=== PATIENT | female | born 1955 | race African-American/Black ===

== ENCOUNTER 2016-10-31 10:26 | Inpatient (IN) | payer OTHER ==
[2016-10-31] VITALS (12 sets, daily range): BP systolic 74–123; BP diastolic 53–63
[~2016-10-31] VITALS: Ht 157.5 cm; Wt 122.6 kg
--- NOTE | 2016-10-31 10:32 | PHYS DOC ---
Adult General Chief Complaint Chief Complaint: DYSPNEA/RESPIRATOY DISTRESS HPI HPI Patient is a 61 year old -Mongolian Mong[place]ian female who presents with rest or distress. According EMS and they called her O2 sats were in the 30% range agreeable plan BiPAP and got her up to 90% but she still breathing 40 times a minute. Upon arrival to the ER her brain was done at 20 times a minute on BiPAP. She states she's been having some substernal chest pain for the last 2 days. She denies any fevers or chills. She states this is happen before but nobody knows why. Review of Systems Review of Systems Constitutional: Denies fever or chills [] Eyes: Denies change in visual acuity, redness, or eye pain [] HENT: Denies nasal congestion or sore throat [] Respiratory: Denies cough or shortness of breath [] Cardiovascular: No additional information not addressed in HPI [] GI: Denies abdominal pain, nausea, vomiting, bloody stools or diarrhea [] : Denies dysuria or hematuria [] Musculoskeletal: Denies back pain or joint pain [] Integument: Denies rash or skin lesions [] Neurologic: Denies headache, focal weakness or sensory changes [] Endocrine: Denies polyuria or polydipsia [] Current Medications Current Medications Current Medications Medications (Trade) Dose Ordered Sig/Cornel Start Time Stop Time Status Last Admin Dose Admin Albuterol/ Ipratropium (Duoneb) 3 ml 1X ONCE 10/31/16 11:00 10/31/16 11:01 DC 10/31/16 11:00 3 ML Furosemide (Lasix) 40 mg 1X ONCE 10/31/16 11:15 10/31/16 11:16 DC 10/31/16 11:17 40 MG Levofloxacin/ Dextrose 150 ml @ 100 mls/hr ONCE ONCE 10/31/16 11:30 10/31/16 12:59 DC 10/31/16 12:45 100 MLS/HR Levofloxacin/ Dextrose (Levaquin Per Pharmacy) 1 each PRN DAILY PRN 10/31/16 11:30 10/31/16 12:57 DC Methylprednisolone Sodium Succinate (SOLU-Medrol 125MG VIAL) 125 mg 1X ONCE 10/31/16 11:00 10/31/16 11:01 DC 10/31/16 11:18 125 MG Piperacillin Sod/ Tazobactam Sod (Zosyn Per Pharmacy) 1 each PRN DAILY PRN 10/31/16 11:30 Piperacillin Sod/ Tazobactam Sod 3.375 gm/Sodium Chloride 50 ml @ 100 mls/hr ONCE ONCE 10/31/16 11:45 10/31/16 12:14 DC 10/31/16 11:38 100 MLS/HR Vancomycin HCl (Vanco Per Pharmacy) 1 each PRN DAILY PRN 10/31/16 11:30 Vancomycin HCl 2 gm/Sodium Chloride 500 ml @ 250 mls/hr 1X ONCE 10/31/16 11:30 10/31/16 13:29 DC 10/31/16 14:30 250 MLS/HR Allergies Allergies Allergies Coded Allergies Type Severity Reaction Last Updated Verified haloperidol Allergy Unknown 10/31/16 Yes tetanus immune globulin Allergy Unknown 10/31/16 Yes Physical Exam Physical Exam Constitutional: Well developed, well nourished, morbidly obese in mild acute distress, non-toxic appearance. [] HENT: Normocephalic, atraumatic, bilateral external ears normal, oropharynx moist, no oral exudates, nose normal. [] Eyes: PERRLA, EOMI, conjunctiva normal, no discharge. [] Neck: Normal range of motion, no tenderness, supple, no stridor. [] Cardiovascular:Heart rate regular rhythm, no murmur [] Lungs & Thorax: Bilateral breath sounds decreased bilaterally, no wheezing appreciated Abdomen: Bowel sounds normal, soft, no tenderness, no masses, no pulsatile masses. [] Skin: Warm, dry, no erythema, no rash. [] Back: No tenderness, no CVA tenderness. [] Extremities: No tenderness, no cyanosis, no clubbing, ROM intact, no edema. [] Neurologic: Alert and oriented X 3, normal motor function, normal sensory function, no focal deficits noted. [] Psychologic: Affect normal, judgement normal, mood normal. [] Current Patient Data Vital Signs Vital Signs Date Time Temp Pulse Resp B/P (MAP) Pulse Ox O2 Delivery O2 Flow Rate FiO2 10/31/16 12:00 103 20 102/56 (71) 94 10/31/16 11:15 BiPAP/CPAP 10/31/16 10:32 102.7 102.7 Lab Values Laboratory Tests Test 10/31/16 10:31 10/31/16 11:00 10/31/16 11:08 White Blood Count 14.8 x10^3/uL (4.0-11.0) H Red Blood Count 4.29 x10^6/uL (3.50-5.40) Hemoglobin 12.3 g/dL (12.0-15.5) Hematocrit 38.1 % (36.0-47.0) Mean Corpuscular Volume 89 fL (79-100) Mean Corpuscular Hemoglobin 29 pg (25-35) Mean Corpuscular Hemoglobin Concent 32 g/dL (31-37) Red Cell Distribution Width 15.4 % (11.5-14.5) H Platelet Count 240 x10^3/uL (140-400) Neutrophils (%) (Auto) 76 % (31-73) H Lymphocytes (%) (Auto) 13 % (24-48) L Monocytes (%) (Auto) 10 % (0-9) H Eosinophils (%) (Auto) 0 % (0-3) Basophils (%) (Auto) 1 % (0-3) Neutrophils # (Auto) 11.3 x10^3uL (1.8-7.7) H Lymphocytes # (Auto) 2.0 x10^3/uL (1.0-4.8) Monocytes # (Auto) 1.4 x10^3/uL (0.0-1.1) H Eosinophils # (Auto) 0.0 x10^3/uL (0.0-0.7) Basophils # (Auto) 0.1 x10^3/uL (0.0-0.2) Prothrombin Time 13.1 SEC (11.7-14.0) Prothrombin Time INR 1.1 (0.8-1.1) Lactic Acid Level 1.2 mmol/L (0.4-2.0) O2 Saturation 88 % (92-99) L Arterial Blood pH 7.31 (7.35-7.45) L Arterial Blood pCO2 at Patient Temp 59 mmHg (35-46) H Arterial Blood pO2 at Patient Temp 64 mmHg (65-108) L Arterial Blood HCO3 29 mmol/L (21-28) H Arterial Blood Base Excess 2 mmol/L (-3-3) FiO2 50 Sodium Level 137 mmol/L (136-145) Potassium Level 3.6 mmol/L (3.5-5.1) Chloride Level 98 mmol/L (98-107) Carbon Dioxide Level 30 mmol/L (21-32) Anion Gap 9 (6-14) Blood Urea Nitrogen 33 mg/dL (7-20) H Creatinine 2.1 mg/dL (0.6-1.0) H Estimated GFR (Cockcroft-Gault) 28.8 Glucose Level 125 mg/dL (70-99) H Calcium Level 8.5 mg/dL (8.5-10.1) Magnesium Level 2.2 mg/dL (1.8-2.4) Total Bilirubin 0.4 mg/dL (0.2-1.0) Direct Bilirubin 0.2 mg/dL (0.0-0.2) Aspartate Amino Transferase (AST) 65 U/L (15-37) H Alanine Aminotransferase (ALT) 32 U/L (14-59) Alkaline Phosphatase 137 U/L (46-116) H Creatine Kinase 2474 U/L (26-192) H Creatine Kinase MB (Mass) 10.2 ng/mL (0.0-3.6) H Creatine Kinase MB Relative Index 0.4 % (0-4) Troponin I Quantitative 0.035 ng/mL (0.000-0.055) ER-Upr-D-Type Natriuretic Peptide 201 pg/mL (0-124) H Total Protein 8.1 g/dL (6.4-8.2) Albumin 3.6 g/dL (3.4-5.0) Lipase 36 U/L (73-393) L Thyroid Stimulating Hormone (TSH) 1.216 uIU/mL (0.358-3.74) Laboratory Tests 10/31/16 10:31 Laboratory Tests 10/31/16 11:08 EKG EKG EKG shows sinus tachycardia [address] elevations or T-wave inversions, normal axis, QTC 434 ms, as interpreted by me. Radiology/Procedures Radiology/Procedures [facility] [address] [place], [place] [id number] IMAGING REPORT Signed PATIENT: KY ROJAS ACCOUNT: [id number] : 1955 LOCATION: ER AGE: 61 SEX: F EXAM STATUS: PRE ER ORD. PHYSICIAN: CARLOS KHAN MD REASON: soa PROCEDURE: PORTABLE CHEST 1V Indication shortness of air. A single view of the chest was obtained. No prior imaging of the chest is available. There is cardiomegaly. There are pulmonary infiltrates compatible with congestive heart failure. There are probable small pleural effusions. There is volume loss at the left lung base which may reflect atelectasis. Pneumonia is not excluded. IMPRESSION cardiomegaly. Pulmonary infiltrates compatible with congestive heart failure. Probable bilateral pleural effusions. Volume loss in the left lung base may reflect atelectasis or pneumonia DICTATED and SIGNED BY: JUAN JOHNSON MD DATE: 10/31/16 1051 CC: CARLOS KHAN MD ~ Impressions: Respiratory failure Healthcare acquired pneumonia Course & Med Decision Making Course & Med Decision Making Pertinent Labs and Imaging studies reviewed. (See chart for details) Presents with respiratory failure and O2 sats 85 range and her tachycardia. I performed a CT angiogram since I cannot explain why she is hypoxic and tachycardic. This did not show any signs of infection or other abnormalities. She was started on Solu-Medrol, DuoNeb nebs and the myosin. She's being admitted to the hospitalist with pulmonary consultation. Interim orders have been written. Patient's in stable condition on oxygen at this time. Dragon Disclaimer Dragon Disclaimer This electronic medical record was generated, in whole or in part, using a voice recognition dictation system. Departure Departure Impression: Primary Impression: Respiratory failure Disposition: ADMITTED INPATIENT Admitting Physician: Katt Guerra Condition: STABLE Problem Qualifiers Primary Impression: Respiratory failure Chronicity: acute Respiratory failure complication: hypoxia Qualified Codes : J96.01 - Acute respiratory failure with hypoxia CARLOS KHAN MD Oct 31, 2016 10:32
[2016-10-31 10:44] LABS: BASO # 0.1 x10^3/uL (0.0-0.2); BASO % 1 % (0-3); EOS % 0 % (0-3); HEMATOCRIT 38.1 % (36.0-47.0); HEMOGLOBIN 12.3 g/dL (12.0-15.5); LYMPH % 13 % (24-48); MEAN CORPUSCULAR HEMOGLOBIN 29 pg (25-35); MEAN CORPUSCULAR HGB CONC 32 g/dL (31-37); MEAN CORPUSCULAR VOLUME 89 fL (79-100); MONO % 10 % (0-9); NEUT % 76 % (31-73); PLATELET COUNT 240 x10^3/uL (140-400); RED BLOOD COUNT 4.29 x10^6/uL (3.50-5.40); RED CELL DISTRIBUTION WIDTH 15.4 % (11.5-14.5); WHITE BLOOD COUNT 14.8 x10^3/uL (4.0-11.0)
--- NOTE | 2016-10-31 10:55 | RAD ---
Indication shortness of air. A single view of the chest was obtained. No prior imaging of the chest is available. There is cardiomegaly. There are pulmonary infiltrates compatible with congestive heart failure. There are probable small pleural effusions. There is volume loss at the left lung base which may reflect atelectasis. Pneumonia is not excluded. IMPRESSION cardiomegaly. Pulmonary infiltrates compatible with congestive heart failure. Probable bilateral pleural effusions. Volume loss in the left lung base may reflect atelectasis or pneumonia
[2016-10-31 10:57] LABS: INR 1.1 (0.8-1.1); PROTHROMBIN TIME PATIENT 13.1 SEC (11.7-14.0)
[2016-10-31] MEDS ORDERED: methylPREDNISolone SOD SUCC PF 125 MG/2 ML VIAL. IV ONE (11:00)
[2016-10-31] MEDS ORDERED: IPRATRPIUM/ALBUTEROL 0.5/2.5MG 3 ML NEBU. NEB ONE (11:00)
[2016-10-31 11:13] LABS: HCO3 ABG 29 mmol/L (21-28); PCO2 ABG 59 mmHg (35-46); PH ABG 7.31 (7.35-7.45); PO2 ABG 64 mmHg (65-108); SAT O2 ABG 88 % (92-99)
[2016-10-31] MEDS ORDERED: FUROSEMIDE 40 MG/4 ML VIAL. IVP ONE (11:15)
[2016-10-31 11:26] LABS: CALCIUM 8.5 mg/dL (8.5-10.1); CREATININE 2.1 mg/dL (0.6-1.0); GFR 28.8; POTASSIUM 3.6 mmol/L (3.5-5.1)
[2016-10-31] MEDS ORDERED: PIP/TAZO PER PHARMACY MC PRN (11:30)
[2016-10-31] MEDS ORDERED: levOFLOXacin PER PHARMACY. MC PRN (11:30)
[2016-10-31] MEDS ORDERED: VANCOMYCIN 2 GM in IV NORMAL SALINE 500ML BAG 500 ML IV ONE (11:30)
[2016-10-31 11:32] LABS: ALBUMIN 3.6 g/dL (3.4-5.0); DIRECT BILIRUBIN 0.2 mg/dL (0.0-0.2); MAGNESIUM 2.2 mg/dL (1.8-2.4); TOTAL BILIRUBIN 0.4 mg/dL (0.2-1.0); TOTAL PROTEIN 8.1 g/dL (6.4-8.2)
[2016-10-31] MEDS ORDERED: PIPERACILLIN/TAZOBACTAM 3.375 GM in IV NORMAL SALINE 50ML 50 ML IV ONE (11:45)
[2016-10-31 11:55] LABS: CKMB MASS 10.2 ng/mL (0.0-3.6)
[2016-10-31 12:09] LABS: FIO2 ABG 50
--- NOTE | 2016-10-31 12:32 | EKG ---
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
[2016-10-31 12:59] LABS: HCO3 ABG 27 mmol/L (21-28); PCO2 ABG 49 mmHg (35-46); PH ABG 7.36 (7.35-7.45); PO2 ABG 67 mmHg (65-108); SAT O2 ABG 91 % (92-99)
[2016-10-31 13:41] LABS: BILIRUBIN,URINE SMALL (NEG); GLUCOSE,URINE NEGATIVE (NEG); NITRITE,URINE NEGATIVE (NEG); PROTEIN,URINE 30 mg/dL (NEG-TRACE)
[2016-10-31 13:46] LABS: BARBITURATES NEG (NEG); BENZODIAZEPINES NEG (NEG); CANNABINOIDS NEG (NEG); COCAINE NEG (NEG); METHADONE NEG (NEG); OPIATES NEG (NEG); PHENCYCLIDINE NEG (NEG)
[2016-10-31 13:59] LABS: BACTERIA,URINE MANY /HPF (0-FEW); RBC,URINE 0 /HPF (0-2)
[2016-10-31] MEDS ORDERED: IV NORMAL SALINE 1000ML BAG 1,000 ML IV ONE (14:00)
[2016-10-31] MEDS ORDERED: MELO15TA23 PO (14:54)
[2016-10-31] MEDS ORDERED: FLUO40CA2 PO (14:54)
[2016-10-31] MEDS ORDERED: CLON0.1T PO (14:54)
[2016-10-31] MEDS ORDERED: CETI10TA16 PO (14:54)
[2016-10-31] MEDS ORDERED: DOCU100C28 PO (14:54)
[2016-10-31] MEDS ORDERED: LOSA50TA6 PO (14:54)
[2016-10-31] MEDS ORDERED: LORA1TAB PO (14:54)
[2016-10-31] MEDS ORDERED: MONT10TA9 PO (14:54)
[2016-10-31] MEDS ORDERED: FAMO20TA5 PO (14:54)
[2016-10-31] MEDS ORDERED: FURO-68 PO (14:54)
[2016-10-31] MEDS ORDERED: HYDR25TA9 PO (14:54)
[2016-10-31] MEDS ORDERED: IPRA3AMP NEB (14:54)
[2016-10-31] MEDS ORDERED: FOLI1TAB16 PO (14:54)
[2016-10-31] MEDS ORDERED: OLAN20TA7 PO (14:56)
[2016-10-31] MEDS ORDERED: TRAZ100T12 PO (15:00)
[2016-10-31] MEDS ORDERED: POLY255P PO (15:00)
[2016-10-31] MEDS ORDERED: ONDANSETRON PF 4 MG/2 ML VIAL. IV PRN (15:15)
[2016-10-31] MEDS ORDERED: ALBUTEROL SULFATE 2.5 MG/3 ML NEBU. NEB PRN (15:15)
[2016-10-31] MEDS: IPRATRPIUM/ALBUTEROL 0.5/2.5MG 3 ML NEBU. NEB SCH (15:15)
[2016-10-31] MEDS ORDERED: traMADol 50 MG TABLET PO PRN (15:15)
--- NOTE | 2016-10-31 15:23 | PDOC1 ---
History and Physical Date of Admission Date of Admission 10/31/16 Identification/Chief Complaint Chief Complaint sob Problems: Source Source: Chart review History of Present Illness History of Present Illness Patient is a 61 year old -Ch[place] female who presents with rest or distress. pt is lethargic now, not arousable or answer my question. as per ERP and ICU NURSE, pt was sent from a mental health facility, with h/o chf, schizophrenia, copd. EMS called her O2 sats were in the 30% range agreeable plan BiPAP and got her up to 90% but she still breathing 40 times a minute. She states she's been having some substernal chest pain for the last 2 days. She denies any fevers or chills. She states this is happen before but nobody knows why. IN ER, T 102, need bipap, able to answer some questions but now lethargic. got lasix x1 in ER. Past Medical History Cardiovascular: CHF, HTN Pulmonary: COPD Past Surgical History Past Surgical History: No pertinent history Family History Family History: Hypertension Social History Smoke: <1 pack per day ALCOHOL: none Drugs: None Current Medications Current Medications Current Medications Medications (Trade) Dose Ordered Sig/Cornel Start Time Stop Time Status Last Admin Dose Admin Albuterol/ Ipratropium (Duoneb) 3 ml 1X ONCE 10/31/16 11:00 10/31/16 11:01 DC 10/31/16 11:00 3 ML Furosemide (Lasix) 40 mg 1X ONCE 10/31/16 11:15 10/31/16 11:16 DC 10/31/16 11:17 40 MG Levofloxacin/ Dextrose 150 ml @ 100 mls/hr Q48H 11/02/16 10:00 Levofloxacin/ Dextrose (Levaquin Per Pharmacy) 1 each PRN DAILY PRN 10/31/16 11:30 10/31/16 12:57 DC Methylprednisolone Sodium Succinate (SOLU-Medrol 125MG VIAL) 125 mg 1X ONCE 10/31/16 11:00 10/31/16 11:01 DC 10/31/16 11:18 125 MG Piperacillin Sod/ Tazobactam Sod (Zosyn Per Pharmacy) 1 each PRN DAILY PRN 10/31/16 11:30 Piperacillin Sod/ Tazobactam Sod 3.375 gm/Sodium Chloride 50 ml @ 100 mls/hr Q6HRS 10/31/16 18:00 Vancomycin HCl (Vanco Per Pharmacy) 1 each PRN DAILY PRN 10/31/16 11:30 Vancomycin HCl 2 gm/Sodium Chloride 500 ml @ 250 mls/hr 1X ONCE 10/31/16 11:30 10/31/16 13:29 DC Allergies Allergies Allergies Coded Allergies Type Severity Reaction Last Updated Verified haloperidol Allergy Unknown 10/31/16 Yes tetanus immune globulin Allergy Unknown 10/31/16 Yes ROS Review of System CONSTITUTIONAL: No fever or chills EYES: No recent changes SKIN: No rash or itching CARDIOVASCULAR: No chest pain, syncope, palpitations, or edema RESPIRATORY: No SOB or cough GASTROINTESTINAL: No nausea, vomiting or abdominal pain NEUROLOGICAL: No headaches or weakness ENDOCRINE: No cold or heat intolerance GENITOURINARY: No urgency or frequency of urination MUSCULOSKELETAL: No back pain or joint pain LYMPHATICS: No enlarged lymph nodes PSYCHIATRIC: No anxiety or depression Physical Exam Physical Exam GEN.: on bipap, lethargic, not arousable or answer my questions, not follow my commands. HEENT: Head is normocephalic, atraumatic NECK: Supple. LUNGS: bl coarse bs. HEART: RRR, S1, S2 present. Peripheral pulses intact ABDOMEN: Soft, nontender. Positive bowel sounds. EXTREMITIES: Without any cyanosis. bl leg 1= edema NEUROLOGIC: Normal speech, normal tone PSYCHIATRIC: Normal affect, normal mood. SKIN: No ulcerations Vitals Vitals Vital Signs Date Time Temp Pulse Resp B/P (MAP) Pulse Ox O2 Delivery O2 Flow Rate FiO2 10/31/16 13:15 88 10/31/16 12:30 102 20 107/57 (74) BiPAP/CPAP 10/31/16 10:32 102.7 102.7 Labs Labs Laboratory Tests Test 10/31/16 10:31 10/31/16 11:00 10/31/16 11:08 10/31/16 12:55 White Blood Count 14.8 x10^3/uL (4.0-11.0) Red Blood Count 4.29 x10^6/uL (3.50-5.40) Hemoglobin 12.3 g/dL (12.0-15.5) Hematocrit 38.1 % (36.0-47.0) Mean Corpuscular Volume 89 fL (79-100) Mean Corpuscular Hemoglobin 29 pg (25-35) Mean Corpuscular Hemoglobin Concent 32 g/dL (31-37) Red Cell Distribution Width 15.4 % (11.5-14.5) Platelet Count 240 x10^3/uL (140-400) Neutrophils (%) (Auto) 76 % (31-73) Lymphocytes (%) (Auto) 13 % (24-48) Monocytes (%) (Auto) 10 % (0-9) Eosinophils (%) (Auto) 0 % (0-3) Basophils (%) (Auto) 1 % (0-3) Neutrophils # (Auto) 11.3 x10^3uL (1.8-7.7) Lymphocytes # (Auto) 2.0 x10^3/uL (1.0-4.8) Monocytes # (Auto) 1.4 x10^3/uL (0.0-1.1) Eosinophils # (Auto) 0.0 x10^3/uL (0.0-0.7) Basophils # (Auto) 0.1 x10^3/uL (0.0-0.2) Prothrombin Time 13.1 SEC (11.7-14.0) Prothromb Time International Ratio 1.1 (0.8-1.1) Lactic Acid Level 1.2 mmol/L (0.4-2.0) O2 Saturation 88 % (92-99) 91 % (92-99) Arterial Blood pH 7.31 (7.35-7.45) 7.36 (7.35-7.45) Arterial Blood pCO2 at Patient Temp 59 mmHg (35-46) 49 mmHg (35-46) Arterial Blood pO2 at Patient Temp 64 mmHg (65-108) 67 mmHg (65-108) Arterial Blood HCO3 29 mmol/L (21-28) 27 mmol/L (21-28) Arterial Blood Base Excess 2 mmol/L (-3-3) 1 mmol/L (-3-3) FiO2 50 50.0 Sodium Level 137 mmol/L (136-145) Potassium Level 3.6 mmol/L (3.5-5.1) Chloride Level 98 mmol/L (98-107) Carbon Dioxide Level 30 mmol/L (21-32) Anion Gap 9 (6-14) Blood Urea Nitrogen 33 mg/dL (7-20) Creatinine 2.1 mg/dL (0.6-1.0) Estimated GFR (Cockcroft-Gault) 28.8 Glucose Level 125 mg/dL (70-99) Calcium Level 8.5 mg/dL (8.5-10.1) Magnesium Level 2.2 mg/dL (1.8-2.4) Total Bilirubin 0.4 mg/dL (0.2-1.0) Direct Bilirubin 0.2 mg/dL (0.0-0.2) Aspartate Amino Transf (AST/SGOT) 65 U/L (15-37) Alanine Aminotransferase (ALT/SGPT) 32 U/L (14-59) Alkaline Phosphatase 137 U/L (46-116) Creatine Kinase 2474 U/L (26-192) Creatine Kinase MB (Mass) 10.2 ng/mL (0.0-3.6) Creatine Kinase MB Relative Index 0.4 % (0-4) Troponin I Quantitative 0.035 ng/mL (0.000-0.055) WF-Nks-M-Type Natriuretic Peptide 201 pg/mL (0-124) Total Protein 8.1 g/dL (6.4-8.2) Albumin 3.6 g/dL (3.4-5.0) Lipase 36 U/L (73-393) Thyroid Stimulating Hormone (TSH) 1.216 uIU/mL (0.358-3.74) Test 10/31/16 13:30 Urine Collection Type U cath Urine Color Daisy Urine Clarity Cloudy Urine pH 5.0 Urine Specific [place] 1.015 Urine Protein 30 mg/dL (NEG-TRACE) Urine Glucose (UA) Negative mg/dL (NEG) Urine Ketones (Stick) Negative mg/dL (NEG) Urine Blood Negative (NEG) Urine Nitrite Negative (NEG) Urine Bilirubin Small (NEG) Urine Urobilinogen Dipstick 1.0 mg/dL (0.2 mg/dL) Urine Leukocyte Esterase Trace (NEG) Urine RBC 0 /HPF (0-2) Urine WBC 5-10 /HPF (0-4) Urine Bacteria Many /HPF (0-FEW) Urine Hyaline Casts Many /HPF Urine Mucus Mod /LPF Urine Opiates Screen Neg (NEG) Urine Methadone Screen Neg (NEG) Urine Barbiturates Neg (NEG) Urine Phencyclidine Screen Neg (NEG) Urine Amphetamine/Methamphetamine Neg (NEG) Urine Benzodiazepines Screen Neg (NEG) Urine Cocaine Screen Neg (NEG) Urine Cannabinoids Screen Neg (NEG) Urine Ethyl Alcohol Neg (NEG) Laboratory Tests Test 10/31/16 10:31 10/31/16 11:00 10/31/16 11:08 10/31/16 12:55 White Blood Count 14.8 x10^3/uL (4.0-11.0) Red Blood Count 4.29 x10^6/uL (3.50-5.40) Hemoglobin 12.3 g/dL (12.0-15.5) Hematocrit 38.1 % (36.0-47.0) Mean Corpuscular Volume 89 fL (79-100) Mean Corpuscular Hemoglobin 29 pg (25-35) Mean Corpuscular Hemoglobin Concent 32 g/dL (31-37) Red Cell Distribution Width 15.4 % (11.5-14.5) Platelet Count 240 x10^3/uL (140-400) Neutrophils (%) (Auto) 76 % (31-73) Lymphocytes (%) (Auto) 13 % (24-48) Monocytes (%) (Auto) 10 % (0-9) Eosinophils (%) (Auto) 0 % (0-3) Basophils (%) (Auto) 1 % (0-3) Neutrophils # (Auto) 11.3 x10^3uL (1.8-7.7) Lymphocytes # (Auto) 2.0 x10^3/uL (1.0-4.8) Monocytes # (Auto) 1.4 x10^3/uL (0.0-1.1) Eosinophils # (Auto) 0.0 x10^3/uL (0.0-0.7) Basophils # (Auto) 0.1 x10^3/uL (0.0-0.2) Prothrombin Time 13.1 SEC (11.7-14.0) Prothromb Time International Ratio 1.1 (0.8-1.1) Lactic Acid Level 1.2 mmol/L (0.4-2.0) O2 Saturation 88 % (92-99) 91 % (92-99) Arterial Blood pH 7.31 (7.35-7.45) 7.36 (7.35-7.45) Arterial Blood pCO2 at Patient Temp 59 mmHg (35-46) 49 mmHg (35-46) Arterial Blood pO2 at Patient Temp 64 mmHg (65-108) 67 mmHg (65-108) Arterial Blood HCO3 29 mmol/L (21-28) 27 mmol/L (21-28) Arterial Blood Base Excess 2 mmol/L (-3-3) 1 mmol/L (-3-3) FiO2 50 50.0 Sodium Level 137 mmol/L (136-145) Potassium Level 3.6 mmol/L (3.5-5.1) Chloride Level 98 mmol/L (98-107) Carbon Dioxide Level 30 mmol/L (21-32) Anion Gap 9 (6-14) Blood Urea Nitrogen 33 mg/dL (7-20) Creatinine 2.1 mg/dL (0.6-1.0) Estimated GFR (Cockcroft-Gault) 28.8 Glucose Level 125 mg/dL (70-99) Calcium Level 8.5 mg/dL (8.5-10.1) Magnesium Level 2.2 mg/dL (1.8-2.4) Total Bilirubin 0.4 mg/dL (0.2-1.0) Direct Bilirubin 0.2 mg/dL (0.0-0.2) Aspartate Amino Transf (AST/SGOT) 65 U/L (15-37) Alanine Aminotransferase (ALT/SGPT) 32 U/L (14-59) Alkaline Phosphatase 137 U/L (46-116) Creatine Kinase 2474 U/L (26-192) Creatine Kinase MB (Mass) 10.2 ng/mL (0.0-3.6) Creatine Kinase MB Relative Index 0.4 % (0-4) Troponin I Quantitative 0.035 ng/mL (0.000-0.055) SL-Mad-M-Type Natriuretic Peptide 201 pg/mL (0-124) Total Protein 8.1 g/dL (6.4-8.2) Albumin 3.6 g/dL (3.4-5.0) Lipase 36 U/L (73-393) Thyroid Stimulating Hormone (TSH) 1.216 uIU/mL (0.358-3.74) Test 10/31/16 13:30 Urine Collection Type U cath Urine Color Daisy Urine Clarity Cloudy Urine pH 5.0 Urine Specific [place] 1.015 Urine Protein 30 mg/dL (NEG-TRACE) Urine Glucose (UA) Negative mg/dL (NEG) Urine Ketones (Stick) Negative mg/dL (NEG) Urine Blood Negative (NEG) Urine Nitrite Negative (NEG) Urine Bilirubin Small (NEG) Urine Urobilinogen Dipstick 1.0 mg/dL (0.2 mg/dL) Urine Leukocyte Esterase Trace (NEG) Urine RBC 0 /HPF (0-2) Urine WBC 5-10 /HPF (0-4) Urine Bacteria Many /HPF (0-FEW) Urine Hyaline Casts Many /HPF Urine Mucus Mod /LPF Urine Opiates Screen Neg (NEG) Urine Methadone Screen Neg (NEG) Urine Barbiturates Neg (NEG) Urine Phencyclidine Screen Neg (NEG) Urine Amphetamine/Methamphetamine Neg (NEG) Urine Benzodiazepines Screen Neg (NEG) Urine Cocaine Screen Neg (NEG) Urine Cannabinoids Screen Neg (NEG) Urine Ethyl Alcohol Neg (NEG) VTE Prophylaxis Ordered VTE Prophylaxis Devices: Yes VTE Pharmacological Prophylaxi: Yes Assessment/Plan Assessment/Plan acute hypoxic and hypercapnic resp failure with HAP CHF history, no details, could be systolic exacerbation copd morbid obesity ckd with jerrod, vasomotor from mental health facility, schizophrenia HTN tobaccoism rhabdomyelitis sepsis with HAP PLAN: CARD, pulm consult repeat ABG 500 CC bolus running given low side BP, hold po meds given got lasix 40mg iv x1 in ER, and low bp on vanco, zosyn ,levaquin from ER. check sputum cx,fu bcx bipap for now npo labs tmr echo duoneb dvt, gi ppx ICU care, monitor bp and urine output. SARA ANDERSON MD Oct 31, 2016 15:23
[2016-10-31 15:30] LABS: HCO3 ABG 25 mmol/L (21-28); PCO2 ABG 54 mmHg (35-46); PH ABG 7.27 (7.35-7.45); PO2 ABG 64 mmHg (65-108); SAT O2 ABG 88 % (92-99)
[2016-10-31 15:33] LABS: FIO2 ABG 70
--- NOTE | 2016-10-31 15:35 | PDOC2 ---
DARIEL ORDONEZ LIQUOR DEPARTMENT MANAGER 10/31/16 1535: CARDIAC CONSULT DATE OF CONSULT Date of Consult DATE: 10/31/16 TIME: 15:23 REASON FOR CONSULT Reason for Consult: CHF history REFERRING PHYSICIAN Referring Physician: Fred SOURCE Source: Chart review, Patient HISTORY OF PRESENT ILLNESS HISTORY OF PRESENT ILLNESS This is a 61 yo female admitted for complains of SOA. She came from a mental health facility and was noted with SOA. She was significantly hypoxic upon EMS and was placed on bipap and has improved. It was a little difficult to obtain significant information due to bipap use. She was able to give me few details of her hx. Reports that in the last 4 days she has been having chills, increasing productive white sputum. Her hydration has been poor. Denies any chest pain but she has been having left sided abdominal discomfort. No n/v or diarrhea. She also recently received zithromax done with last dose on 10/22/2016 She does not use any O2 or CPAP in the facility. Per review there was no notation of prior CAD, arrhythmias,VTE/anticoagulation. 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 PAST MEDICAL HISTORY Cardiovascular: CHF, HTN Pulmonary: Asthma GI: Constipation, GERD Psych: Depression, Schizophrenia Musculoskeletal: Osteoarthritis ENT: Allergic Rhinitis PAST SURGICAL HISTORY Past Surgical History: Other (Unknown) FAMILY HISTORY Family History: Family History Unknown SOCIAL HISTORY Social History tobaccoism CURRENT MEDICATIONS CURRENT MEDICATIONS Current Medications Medications (Trade) Dose Ordered Sig/Cornel Route PRN Reason Start Time Stop Time Status Last Admin Dose Admin Methylprednisolone Sodium Succinate (SOLU-Medrol 125MG VIAL) 125 mg 1X ONCE IV 10/31/16 11:00 10/31/16 11:01 DC 10/31/16 11:18 Albuterol/ Ipratropium (Duoneb) 3 ml 1X ONCE NEB 10/31/16 11:00 10/31/16 11:01 DC 10/31/16 11:00 Furosemide (Lasix) 40 mg 1X ONCE IVP 10/31/16 11:15 10/31/16 11:16 DC 10/31/16 11:17 Levofloxacin/ Dextrose 150 ml @ 100 mls/hr ONCE ONCE IV 10/31/16 11:30 10/31/16 12:59 DC 10/31/16 12:45 Piperacillin Sod/ Tazobactam Sod 3.375 gm/Sodium Chloride 50 ml @ 100 mls/hr ONCE ONCE IV 10/31/16 11:45 10/31/16 12:14 DC 10/31/16 11:38 ALLERGIES ALLERGIES: Coded Allergies: haloperidol (Verified Allergy, Unknown, 10/31/16) tetanus immune globulin (Verified Allergy, Unknown, 10/31/16) ROS Review of System limited with needed bipap use, see HPI PHYSICAL EXAM General: Alert, Oriented X3, Cooperative, moderate distress HEENT: Atraumatic, Mucous membr. moist/pink Lungs: Other (diffuse wheeze, basilar crackles) Heart: Regular rate (SR), Normal S1, Normal S2, Other (difficult to note due to adventitious sounds and bipap) Abdomen: Soft, No tenderness, Other (obese) Extremities: No cyanosis, Other (1+ bilateral LE pitting edema) Skin: No breakdown, No significant lesion Neuro: Sensation intact, Other (difficult to communicate due to bipap but responsive to questions. ) Psych/Mental Status: Mental status NL, Mood NL MUSCULOSKELETAL: Osteoarthritic changes both hands VITALS VITALS Vital Signs Date Time Temp Pulse Resp B/P (MAP) Pulse Ox O2 Delivery O2 Flow Rate FiO2 10/31/16 15:00 91 20 90/55 (67) 90 BiPAP/CPAP 10/31/16 14:00 100.4 100.4 LABS Lab: Laboratory Tests Test 10/31/16 10:31 10/31/16 11:00 10/31/16 11:08 10/31/16 12:55 White Blood Count 14.8 x10^3/uL (4.0-11.0) Red Blood Count 4.29 x10^6/uL (3.50-5.40) Hemoglobin 12.3 g/dL (12.0-15.5) Hematocrit 38.1 % (36.0-47.0) Mean Corpuscular Volume 89 fL (79-100) Mean Corpuscular Hemoglobin 29 pg (25-35) Mean Corpuscular Hemoglobin Concent 32 g/dL (31-37) Red Cell Distribution Width 15.4 % (11.5-14.5) Platelet Count 240 x10^3/uL (140-400) Neutrophils (%) (Auto) 76 % (31-73) Lymphocytes (%) (Auto) 13 % (24-48) Monocytes (%) (Auto) 10 % (0-9) Eosinophils (%) (Auto) 0 % (0-3) Basophils (%) (Auto) 1 % (0-3) Neutrophils # (Auto) 11.3 x10^3uL (1.8-7.7) Lymphocytes # (Auto) 2.0 x10^3/uL (1.0-4.8) Monocytes # (Auto) 1.4 x10^3/uL (0.0-1.1) Eosinophils # (Auto) 0.0 x10^3/uL (0.0-0.7) Basophils # (Auto) 0.1 x10^3/uL (0.0-0.2) Prothrombin Time 13.1 SEC (11.7-14.0) Prothromb Time International Ratio 1.1 (0.8-1.1) Lactic Acid Level 1.2 mmol/L (0.4-2.0) O2 Saturation 88 % (92-99) 91 % (92-99) Arterial Blood pH 7.31 (7.35-7.45) 7.36 (7.35-7.45) Arterial Blood pCO2 at Patient Temp 59 mmHg (35-46) 49 mmHg (35-46) Arterial Blood pO2 at Patient Temp 64 mmHg (65-108) 67 mmHg (65-108) Arterial Blood HCO3 29 mmol/L (21-28) 27 mmol/L (21-28) Arterial Blood Base Excess 2 mmol/L (-3-3) 1 mmol/L (-3-3) FiO2 50 50.0 Sodium Level 137 mmol/L (136-145) Potassium Level 3.6 mmol/L (3.5-5.1) Chloride Level 98 mmol/L (98-107) Carbon Dioxide Level 30 mmol/L (21-32) Anion Gap 9 (6-14) Blood Urea Nitrogen 33 mg/dL (7-20) Creatinine 2.1 mg/dL (0.6-1.0) Estimated GFR (Cockcroft-Gault) 28.8 Glucose Level 125 mg/dL (70-99) Calcium Level 8.5 mg/dL (8.5-10.1) Magnesium Level 2.2 mg/dL (1.8-2.4) Total Bilirubin 0.4 mg/dL (0.2-1.0) Direct Bilirubin 0.2 mg/dL (0.0-0.2) Aspartate Amino Transf (AST/SGOT) 65 U/L (15-37) Alanine Aminotransferase (ALT/SGPT) 32 U/L (14-59) Alkaline Phosphatase 137 U/L (46-116) Creatine Kinase 2474 U/L (26-192) Creatine Kinase MB (Mass) 10.2 ng/mL (0.0-3.6) Creatine Kinase MB Relative Index 0.4 % (0-4) Troponin I Quantitative 0.035 ng/mL (0.000-0.055) WI-Lvk-[id number]-Type Natriuretic Peptide 201 pg/mL (0-124) Total Protein 8.1 g/dL (6.4-8.2) Albumin 3.6 g/dL (3.4-5.0) Lipase 36 U/L (73-393) Thyroid Stimulating Hormone (TSH) 1.216 uIU/mL (0.358-3.74) Test 10/31/16 13:30 Urine Collection Type U cath Urine Color Daisy Urine Clarity Cloudy Urine pH 5.0 Urine Specific [place] 1.015 Urine Protein 30 mg/dL (NEG-TRACE) Urine Glucose (UA) Negative mg/dL (NEG) Urine Ketones (Stick) Negative mg/dL (NEG) Urine Blood Negative (NEG) Urine Nitrite Negative (NEG) Urine Bilirubin Small (NEG) Urine Urobilinogen Dipstick 1.0 mg/dL (0.2 mg/dL) Urine Leukocyte Esterase Trace (NEG) Urine RBC 0 /HPF (0-2) Urine WBC 5-10 /HPF (0-4) Urine Bacteria Many /HPF (0-FEW) Urine Hyaline Casts Many /HPF Urine Mucus Mod /LPF Urine Opiates Screen Neg (NEG) Urine Methadone Screen Neg (NEG) Urine Barbiturates Neg (NEG) Urine Phencyclidine Screen Neg (NEG) Urine Amphetamine/Methamphetamine Neg (NEG) Urine Benzodiazepines Screen Neg (NEG) Urine Cocaine Screen Neg (NEG) Urine Cannabinoids Screen Neg (NEG) Urine Ethyl Alcohol Neg (NEG) ASSESSMENT/PLAN ASSESSMENT/PLAN 1. Acute respiratory failure with likely HCAP: recent Zithromax use ending 2016 2. Suspecting TALHA with hx of asthma 3. Acute on chronic diastolic CHF: induced by above 4. Rhabdomyolysis: likely from febrile episodes 5. MICHI: Volume depletion. likely underlying CKD 6. Morbid obesity: BMI 52 7. Chronic NSAID use 8. HTN: low BP 9. Tobaccoism Recommendations 1. Lasix received in ED. No further lasix at this time. Start IV hydration 2. Hold ARB, stop meloxicam 3. TTE,continue bipap 4. Hold BP meds, reeval further need overnight. 5. Antibiotic on board per PCPPulmonary consult pending Problems: SANG DURBIN MD 11/01/16 1612: CARDIAC CONSULT ALLERGIES ALLERGIES: Coded Allergies: haloperidol (Verified Allergy, Unknown, 10/31/16) tetanus immune globulin (Verified Allergy, Unknown, 10/31/16) ASSESSMENT/PLAN ASSESSMENT/PLAN Patient seen and examined. Agree with CONFERENCE CENTER MANAGER's assessment and plan. Acute on chronic diastolic heart failure better compensated with diuretics received in ED. Continue antibiotics per IM. Check 2-D echo to assess LV systolic function. Thank you for your consultation Problems: DARIEL ORDONEZ APRN Oct 31, 2016 15:35 SANG DURBIN MD Nov 01, 2016 16:12
[2016-10-31] MEDS: VANCOMYCIN PER PHARMACY MC PRN (15:45)
--- NOTE | 2016-10-31 16:41 | PDOC2 ---
CONSULT Date of Consult Date of Consult DATE: 10/31/16 TIME: 16:26 Reason for Consult Reason for Consult: RESP FAILURE ON NON INVASIVE VENTILATION Identification/Chief Complaint Chief Complaint DECREASE SAT AT ME Problems: Source Source: Chart review History of Present Illness Reason for Visit: PT FOUND TO HAVE LOW SAT AT ME, NORMALLY WEARS 1-2 LITERS N/C NO CPAP PT CURRENTLY ON BIPAP COMPLAINED OF SOME CHEST PAIN IN ER ABG NOTED INCREASE C02 NOW IN ICU AWAKENS TO STIMULI DENIES FEVER HAD FEVER IN ER Past Medical History Cardiovascular: CHF, HTN Pulmonary: Asthma GI: Constipation, GERD Psych: Depression, Schizophrenia Musculoskeletal: Osteoarthritis ENT: Allergic Rhinitis Past Surgical History Past Surgical History: Other (Unknown) Family History Family History: Family History Unknown Social History <1 pack per day ALCOHOL: none Drugs: None Current Medications Current Medications Current Medications Methylprednisolone Sodium Succinate (SOLU-Medrol 125MG VIAL) 125 mg 1X ONCE IV Last administered on 10/31/16 11:18; Start 10/31/16 at 11:00; Stop 10/31/16 at 11:01; Status DC Albuterol/ Ipratropium (Duoneb) 3 ml 1X ONCE NEB Last administered on 11:00; Start 10/31/16 at 11:00; Stop 10/31/16 at 11:01; Status DC Furosemide (Lasix) 40 mg 1X ONCE IVP Last administered on 10/31/16 11:17; Start 10/31/16 at 11:15; Stop 10/31/16 at 11:16; Status DC Vancomycin HCl (Vanco Per Pharmacy) 1 each PRN DAILY PRN MC SEE COMMENTS Last administered on 10/31/16 15:45; Start 10/31/16 at 11:30 Piperacillin Sod/ Tazobactam Sod (Zosyn Per Pharmacy) 1 each PRN DAILY PRN MC SEE COMMENTS; Start 10/31/16 at 11:30 Levofloxacin/ Dextrose (Levaquin Per Pharmacy) 1 each PRN DAILY PRN MC SEE COMMENTS; Start 10/31/16 at 11:30; Stop 10/31/16 at 12:57; Status DC Vancomycin HCl 2 gm/Sodium Chloride 500 ml @ 250 mls/hr 1X ONCE IV Last administered on 10/31/16 14:30; Start 10/31/16 at 11:30; Stop 10/31/16 at 13:29 ; Status DC Levofloxacin/ Dextrose 150 ml @ 100 mls/hr ONCE ONCE IV Last administered on 10/31/16t 12:45; Start 10/31/16 at 11:30; Stop 10/31/16 at 12:59; Status DC Piperacillin Sod/ Tazobactam Sod 3.375 gm/Sodium Chloride 50 ml @ 100 mls/hr ONCE ONCE IV Last administered on 10/31/16t 11:38; Start 10/31/16 at 11:45; Stop 10/31/16 at 12:14; Status DC Levofloxacin/ Dextrose 150 ml @ 100 mls/hr Q48H IV ; Start 11/02/16 at 10:00 Piperacillin Sod/ Tazobactam Sod 3.375 gm/Sodium Chloride 50 ml @ 100 mls/hr Q6HRS IV ; Start 10/31/16 at 18:00 Acetaminophen (Tylenol) 650 mg PRN Q6HRS PRN PO FEVER; Start 10/31/16 at 15:15 Ondansetron HCl (Zofran) 4 mg PRN Q6HRS PRN IV NAUSEA/VOMITING; Start 10/31/16 at 15:15 Morphine Sulfate 2 mg PRN Q2HR PRN IV PAIN; Start 10/31/16 at 15:15 Tramadol HCl (Ultram) 50 mg PRN Q6HRS PRN PO PAIN; Start 10/31/16 at 15:15 Hydralazine HCl (Apresoline) 10 mg PRN Q4HRS PRN IVP ELEVATED BP, SEE COMMENTS ; Start 10/31/16 at 15:15 Docusate Sodium (Colace) 100 mg PRN DAILY PRN PO CONSTIPATION; Start 10/31/16 at 15:15 Albuterol/ Ipratropium (Duoneb) 3 ml RTQID NEB ; Start 10/31/16 at 16:00 Albuterol Sulfate (Ventolin Neb Soln) 2.5 mg PRN Q4HRS PRN NEB SHORTNESS OF BREATH; Start 10/31/16 at 15:15 Heparin Sodium (Porcine) (Heparin Sq) 5,000 unit Q8HRS SQ ; Start 10/31/16 at 22 :00 Famotidine (Pepcid) 20 mg QHS IVP ; Start 10/31/16 at 21:00 Vancomycin HCl 2 gm/Sodium Chloride 500 ml @ 250 mls/hr Q24H IV ; Start at 14:00 Vancomycin HCl 1 each 1X ONCE MC ; Start 11/02/16 at 13:30; Stop 11/02/16 at 13 :31 Sodium Chloride 1,000 ml @ 80 mls/hr [id number] IV ; Start 10/31/16 at 16:15 Active Scripts Active Reported Trazodone Hcl 100 Mg Tablet 100 Mg PO HS Polyethylene Glycol 3350 255 Gm Powder 17 Gm PO DAILY Olanzapine 20 Mg Tablet 2 Tab PO QHS Montelukast Sodium Tablet (Montelukast Sodium) 10 Mg Tablet 10 Mg PO HS Meloxicam 15 Mg Tablet 1 Tab PO DAILY Losartan Potassium 50 Mg Tablet 50 Mg PO DAILY Lorazepam 1 Mg Tablet 1 Mg PO HS Lasix (Furosemide) 40 Mg Tablet 40 Mg PO PRN DAILY Hydrochlorothiazide Tablet (Hydrochlorothiazide) 25 Mg Tablet 25 Mg PO DAILY Folic Acid 1 Mg Tablet 1 Mg PO DAILY Fluoxetine Hcl 40 Mg Capsule 40 Mg PO DAILY Famotidine 20 Mg Tablet 20 Mg PO BID Duoneb 0.5-3(2.5) Mg/3 Ml (Albuterol/Ipratropium) 3 Ml Ampul.neb 3 Ml NEB QID Docusate Sodium 100 Mg Capsule 1 Cap PO BID Clonidine Hcl 0.1 Mg Tablet 0.1 Mg PO QID Cetirizine Hcl 10 Mg Tablet 1 Tab PO DAILY Allergies Allergies: Coded Allergies: haloperidol (Verified Allergy, Unknown, 10/31/16) tetanus immune globulin (Verified Allergy, Unknown, 10/31/16) ROS Review of System UNABLE TO REVIEW Vitals VITALS Vital Signs Date Time Temp Pulse Resp B/P (MAP) Pulse Ox O2 Delivery O2 Flow Rate FiO2 10/31/16 16:00 90 20 112/53 (72) 94 BiPAP/CPAP 10/31/16 14:00 100.4 100.4 Labs Labs Laboratory Tests Test 10/31/16 10:31 10/31/16 11:00 10/31/16 11:08 10/31/16 12:55 White Blood Count 14.8 x10^3/uL (4.0-11.0) Red Blood Count 4.29 x10^6/uL (3.50-5.40) Hemoglobin 12.3 g/dL (12.0-15.5) Hematocrit 38.1 % (36.0-47.0) Mean Corpuscular Volume 89 fL (79-100) Mean Corpuscular Hemoglobin 29 pg (25-35) Mean Corpuscular Hemoglobin Concent 32 g/dL (31-37) Red Cell Distribution Width 15.4 % (11.5-14.5) Platelet Count 240 x10^3/uL (140-400) Neutrophils (%) (Auto) 76 % (31-73) Lymphocytes (%) (Auto) 13 % (24-48) Monocytes (%) (Auto) 10 % (0-9) Eosinophils (%) (Auto) 0 % (0-3) Basophils (%) (Auto) 1 % (0-3) Neutrophils # (Auto) 11.3 x10^3uL (1.8-7.7) Lymphocytes # (Auto) 2.0 x10^3/uL (1.0-4.8) Monocytes # (Auto) 1.4 x10^3/uL (0.0-1.1) Eosinophils # (Auto) 0.0 x10^3/uL (0.0-0.7) Basophils # (Auto) 0.1 x10^3/uL (0.0-0.2) Prothrombin Time 13.1 SEC (11.7-14.0) Prothromb Time International Ratio 1.1 (0.8-1.1) Lactic Acid Level 1.2 mmol/L (0.4-2.0) O2 Saturation 88 % (92-99) 91 % (92-99) Arterial Blood pH 7.31 (7.35-7.45) 7.36 (7.35-7.45) Arterial Blood pCO2 at Patient Temp 59 mmHg (35-46) 49 mmHg (35-46) Arterial Blood pO2 at Patient Temp 64 mmHg (65-108) 67 mmHg (65-108) Arterial Blood HCO3 29 mmol/L (21-28) 27 mmol/L (21-28) Arterial Blood Base Excess 2 mmol/L (-3-3) 1 mmol/L (-3-3) FiO2 50 50.0 Sodium Level 137 mmol/L (136-145) Potassium Level 3.6 mmol/L (3.5-5.1) Chloride Level 98 mmol/L (98-107) Carbon Dioxide Level 30 mmol/L (21-32) Anion Gap 9 (6-14) Blood Urea Nitrogen 33 mg/dL (7-20) Creatinine 2.1 mg/dL (0.6-1.0) Estimated GFR (Cockcroft-Gault) 28.8 Glucose Level 125 mg/dL (70-99) Calcium Level 8.5 mg/dL (8.5-10.1) Magnesium Level 2.2 mg/dL (1.8-2.4) Total Bilirubin 0.4 mg/dL (0.2-1.0) Direct Bilirubin 0.2 mg/dL (0.0-0.2) Aspartate Amino Transf (AST/SGOT) 65 U/L (15-37) Alanine Aminotransferase (ALT/SGPT) 32 U/L (14-59) Alkaline Phosphatase 137 U/L (46-116) Creatine Kinase 2474 U/L (26-192) Creatine Kinase MB (Mass) 10.2 ng/mL (0.0-3.6) Creatine Kinase MB Relative Index 0.4 % (0-4) Troponin I Quantitative 0.035 ng/mL (0.000-0.055) CY-Sbb-O-Type Natriuretic Peptide 201 pg/mL (0-124) Total Protein 8.1 g/dL (6.4-8.2) Albumin 3.6 g/dL (3.4-5.0) Lipase 36 U/L (73-393) Thyroid Stimulating Hormone (TSH) 1.216 uIU/mL (0.358-3.74) Test 10/31/16 13:30 10/31/16 14:45 10/31/16 15:15 Urine Collection Type U cath Urine Color Daisy Urine Clarity Cloudy Urine pH 5.0 Urine Specific [place] 1.015 Urine Protein 30 mg/dL (NEG-TRACE) Urine Glucose (UA) Negative mg/dL (NEG) Urine Ketones (Stick) Negative mg/dL (NEG) Urine Blood Negative (NEG) Urine Nitrite Negative (NEG) Urine Bilirubin Small (NEG) Urine Urobilinogen Dipstick 1.0 mg/dL (0.2 mg/dL) Urine Leukocyte Esterase Trace (NEG) Urine RBC 0 /HPF (0-2) Urine WBC 5-10 /HPF (0-4) Urine Bacteria Many /HPF (0-FEW) Urine Hyaline Casts Many /HPF Urine Mucus Mod /LPF Urine Opiates Screen Neg (NEG) Urine Methadone Screen Neg (NEG) Urine Barbiturates Neg (NEG) Urine Phencyclidine Screen Neg (NEG) Urine Amphetamine/Methamphetamine Neg (NEG) Urine Benzodiazepines Screen Neg (NEG) Urine Cocaine Screen Neg (NEG) Urine Cannabinoids Screen Neg (NEG) Urine Ethyl Alcohol Neg (NEG) Lactic Acid Level 0.8 mmol/L (0.4-2.0) O2 Saturation 88 % (92-99) Arterial Blood pH 7.27 (7.35-7.45) Arterial Blood pCO2 at Patient Temp 54 mmHg (35-46) Arterial Blood pO2 at Patient Temp 64 mmHg (65-108) Arterial Blood HCO3 25 mmol/L (21-28) Arterial Blood Base Excess -3 mmol/L (-3-3) FiO2 70 Laboratory Tests Test 10/31/16 10:31 10/31/16 11:00 10/31/16 11:08 10/31/16 12:55 White Blood Count 14.8 x10^3/uL (4.0-11.0) Red Blood Count 4.29 x10^6/uL (3.50-5.40) Hemoglobin 12.3 g/dL (12.0-15.5) Hematocrit 38.1 % (36.0-47.0) Mean Corpuscular Volume 89 fL (79-100) Mean Corpuscular Hemoglobin 29 pg (25-35) Mean Corpuscular Hemoglobin Concent 32 g/dL (31-37) Red Cell Distribution Width 15.4 % (11.5-14.5) Platelet Count 240 x10^3/uL (140-400) Neutrophils (%) (Auto) 76 % (31-73) Lymphocytes (%) (Auto) 13 % (24-48) Monocytes (%) (Auto) 10 % (0-9) Eosinophils (%) (Auto) 0 % (0-3) Basophils (%) (Auto) 1 % (0-3) Neutrophils # (Auto) 11.3 x10^3uL (1.8-7.7) Lymphocytes # (Auto) 2.0 x10^3/uL (1.0-4.8) Monocytes # (Auto) 1.4 x10^3/uL (0.0-1.1) Eosinophils # (Auto) 0.0 x10^3/uL (0.0-0.7) Basophils # (Auto) 0.1 x10^3/uL (0.0-0.2) Prothrombin Time 13.1 SEC (11.7-14.0) Prothromb Time International Ratio 1.1 (0.8-1.1) Lactic Acid Level 1.2 mmol/L (0.4-2.0) O2 Saturation 88 % (92-99) 91 % (92-99) Arterial Blood pH 7.31 (7.35-7.45) 7.36 (7.35-7.45) Arterial Blood pCO2 at Patient Temp 59 mmHg (35-46) 49 mmHg (35-46) Arterial Blood pO2 at Patient Temp 64 mmHg (65-108) 67 mmHg (65-108) Arterial Blood HCO3 29 mmol/L (21-28) 27 mmol/L (21-28) Arterial Blood Base Excess 2 mmol/L (-3-3) 1 mmol/L (-3-3) FiO2 50 50.0 Sodium Level 137 mmol/L (136-145) Potassium Level 3.6 mmol/L (3.5-5.1) Chloride Level 98 mmol/L (98-107) Carbon Dioxide Level 30 mmol/L (21-32) Anion Gap 9 (6-14) Blood Urea Nitrogen 33 mg/dL (7-20) Creatinine 2.1 mg/dL (0.6-1.0) Estimated GFR (Cockcroft-Gault) 28.8 Glucose Level 125 mg/dL (70-99) Calcium Level 8.5 mg/dL (8.5-10.1) Magnesium Level 2.2 mg/dL (1.8-2.4) Total Bilirubin 0.4 mg/dL (0.2-1.0) Direct Bilirubin 0.2 mg/dL (0.0-0.2) Aspartate Amino Transf (AST/SGOT) 65 U/L (15-37) Alanine Aminotransferase (ALT/SGPT) 32 U/L (14-59) Alkaline Phosphatase 137 U/L (46-116) Creatine Kinase 2474 U/L (26-192) Creatine Kinase MB (Mass) 10.2 ng/mL (0.0-3.6) Creatine Kinase MB Relative Index 0.4 % (0-4) Troponin I Quantitative 0.035 ng/mL (0.000-0.055) FP-Obw-C-Type Natriuretic Peptide 201 pg/mL (0-124) Total Protein 8.1 g/dL (6.4-8.2) Albumin 3.6 g/dL (3.4-5.0) Lipase 36 U/L (73-393) Thyroid Stimulating Hormone (TSH) 1.216 uIU/mL (0.358-3.74) Test 10/31/16 13:30 10/31/16 14:45 10/31/16 15:15 Urine Collection Type U cath Urine Color Daisy Urine Clarity Cloudy Urine pH 5.0 Urine Specific [place] 1.015 Urine Protein 30 mg/dL (NEG-TRACE) Urine Glucose (UA) Negative mg/dL (NEG) Urine Ketones (Stick) Negative mg/dL (NEG) Urine Blood Negative (NEG) Urine Nitrite Negative (NEG) Urine Bilirubin Small (NEG) Urine Urobilinogen Dipstick 1.0 mg/dL (0.2 mg/dL) Urine Leukocyte Esterase Trace (NEG) Urine RBC 0 /HPF (0-2) Urine WBC 5-10 /HPF (0-4) Urine Bacteria Many /HPF (0-FEW) Urine Hyaline Casts Many /HPF Urine Mucus Mod /LPF Urine Opiates Screen Neg (NEG) Urine Methadone Screen Neg (NEG) Urine Barbiturates Neg (NEG) Urine Phencyclidine Screen Neg (NEG) Urine Amphetamine/Methamphetamine Neg (NEG) Urine Benzodiazepines Screen Neg (NEG) Urine Cocaine Screen Neg (NEG) Urine Cannabinoids Screen Neg (NEG) Urine Ethyl Alcohol Neg (NEG) Lactic Acid Level 0.8 mmol/L (0.4-2.0) O2 Saturation 88 % (92-99) Arterial Blood pH 7.27 (7.35-7.45) Arterial Blood pCO2 at Patient Temp 54 mmHg (35-46) Arterial Blood pO2 at Patient Temp 64 mmHg (65-108) Arterial Blood HCO3 25 mmol/L (21-28) Arterial Blood Base Excess -3 mmol/L (-3-3) FiO2 70 Images Images IMPRESSION cardiomegaly. Pulmonary infiltrates compatible with congestive heart failure. Probable bilateral pleural effusions. Volume loss in the left lung base may reflect atelectasis or pneumonia Assessment/Plan Assessment/Plan A/C HYPERCAPNIA HYPOXEMIC RESP FAILURE MULTIFACTORIAL ACUTE HEART FAILURE SUSPECT DIASTOLIC TALHA/OHS ACUTE RENAL FAILURE MORBID OBESITY FEVER POSSIBLE PNEUMONIA GRAM NEG/GRAM POS POSSIBLE SEPSIS PLAN BIPAP DIURESE ANTIBX DVT AND GI PROPH CARD CONSULTED IV FLUIDS LACTIC ACID LEVEL CLIVE MEDRANO MD Oct 31, 2016 16:41
[2016-10-31] MEDS: PIPERACILLIN/TAZOBACTAM 3.375 GM in IV NORMAL SALINE 50ML 50 ML IV SCH (17:17)
[2016-10-31] MEDS: IV NORMAL SALINE 1000ML BAG 1,000 ML IV SCH (17:17)
[2016-10-31] MEDS ORDERED: IV NORMAL SALINE 500ML BAG 500 ML IV ONE (17:30)
[2016-10-31 18:12] LABS: BASE EXCESS COOX -4 mmol/L (-3-3); CARBON MONOXIDE 0.9 % (0.0-1.9); HCO3 COOX 25 mmol/L (21-28); METHEMOGLOBIN 0.4 % (0.0-1.9); OXYHEMOGLOBIN 97.5 %; PH COOX 7.18 (7.35-7.45); PO2 COOX 185 mmHg (65-108); SAT O2 COOX 99 % (92-99); TOTAL HEMOGLOBIN 13.2 g/dL
[2016-10-31 18:13] LABS: FIO2 COOX 100; PCO2 COOX 70 mmHg (35-46)
[2016-10-31] MEDS ORDERED: POLYVINYL ALCOHOL 1.4% OPHTH SOLUTION 15ML BOTTLE. OU PRN (18:30)
[2016-10-31] MEDS ORDERED: PROPOFOL 100 ML IV PRN (18:30)
[2016-10-31] MEDS ORDERED: SUCCINYLCHOLINE 200 MG/10 ML VIAL. ONE ×2 (18:43→18:45)
[2016-10-31] MEDS ORDERED: MIDAZOLAM HCL/PF 5 MG/5 ML VIAL. ONE (18:45)
[2016-10-31] MEDS: MIDAZOLAM HCL/PF 5 MG/5 ML VIAL. IV ONE ×2 (19:11→19:30)
--- NOTE | 2016-10-31 19:56 | RAD ---
Portable chest x-ray performed at 7:12 PM INDICATIONS: ET tube placement COMPARISON: None available. FINDINGS: ET tube is in place and the tip is located 3 cm above the level of the rudy. NG tube is in place and the tip is seen within the mid body of the stomach. No pneumothorax is seen. Bilateral interstitial pulmonary edema and small bilateral pleural effusions are seen. Heart size is prominent some of which is due to AP magnification. IMPRESSION: Mild to moderate CHF. Electronically signed by: Trey Low MD (10/31/2016 7:53 PM) [facility]
--- NOTE | 2016-10-31 19:57 | RAD ---
KUB HISTORY: Tube placement. Impression: Tip of an NG tube is seen within the mid body of the stomach. Mild dilatation of the colon is evident. Electronically signed by: Trey Low MD (10/31/2016 7:54 PM) [facility]
[2016-10-31] MEDS: MIDAZOLAM PREMIX 100 ML IV PRN (20:11)
[2016-10-31 20:21] LABS: HCO3 ABG 24 mmol/L (21-28); PCO2 ABG 51 mmHg (35-46); PO2 ABG 88 mmHg (65-108); SAT O2 ABG 95 % (92-99)
[2016-10-31 20:25] LABS: FIO2 ABG 100
[2016-10-31] MEDS: CHLORHEXIDINE 0.12% 15 ML MOUTHWASH. MM SCH (20:27)
[2016-10-31] MEDS: FAMOTIDINE 20 MG/2 ML VIAL IVP SCH (21:48)
[2016-10-31] MEDS: HEPARIN PF for SUB-Q USE 5,000 UNIT/0.5 ML VIAL. SQ SCH (21:51)
[2016-11-01] VITALS (24 sets, daily range): BP systolic 81–147; BP diastolic 49–76
[2016-11-01] MEDS: PIPERACILLIN/TAZOBACTAM 3.375 GM in IV NORMAL SALINE 50ML 50 ML IV SCH ×4 (00:30→17:09)
--- NOTE | 2016-11-01 02:15 | ACF ---
Admission Forms Criteria RESPIRATORY FAILURE [facility] Clinical Indications for Admission to Inpatient Care (Place 'X' for any and all applicable criteria): Hospital admission is needed for appropriate care of the patient because of acute respiratory failure or insufficiency as indicated by ANY ONE of the following(1)(2)(3)(4)(5)(6)(7)(8): [X]I. Mechanical ventilation needed (acute invasive or noninvasive) [ ]II. Severe ventilation deficit as indicated by ANY ONE of the following (9) [ ]a) Respiratory acidosis (pH less than 7.32 and partial pressure of carbon dioxide greater than 40 mm Hg (5.3 kPa)) [ ]b) Partial pressure of carbon dioxide greater than 44 mm Hg (5.9 kPa ) (new) [ ]c) Airflow measurements less than 25% of predicted (eg, peak expiratory flow rate less than 100 L/minute) [ ]d) Forced vital capacity less than 15 mL/kg of ideal body weight, or 50% decrease in vital capacity from baseline [ ]III. Noncardiac pulmonary edema not resolving with rapid emergency treatment (8) [ ]IV. Severe respiratory distress as indicated by ANY ONE of the following: [ ]a) Severe tachypnea (respiratory rate greater than 30, greater than 45 for 6-month-old, greater than 60 for ) [ ]b) Severe hypoxemia (partial pressure of oxygen less than 50 mm Hg ( 6.7 kPa) on greater than 50% oxygen or partial pressure of oxygen to FIO2 ratio less than 200) [ ]c) Mental status deterioration from respiratory disease [ ]V. Airway obstruction or inadequate protection [A](10)(11) The original [employer] content created by [employer] has been revised. The portions of the content which have been revised are identified through the use of italic text or in bold, and [employer] has neither reviewed nor approved the modified material. All other unmodified content is copyright [employer]. Please see references footnoted in the original [employer] edition 2016 Admission Criteria Met?: Yes LEWIS WHEELER Nov 01, 2016 02:15
[2016-11-01 05:21] LABS: BASO % 0 % (0-3); EOS % 0 % (0-3); HEMATOCRIT 36.3 % (36.0-47.0); HEMOGLOBIN 11.7 g/dL (12.0-15.5); LYMPH % 8 % (24-48); MEAN CORPUSCULAR HEMOGLOBIN 29 pg (25-35); MEAN CORPUSCULAR HGB CONC 32 g/dL (31-37); MEAN CORPUSCULAR VOLUME 89 fL (79-100); MONO % 8 % (0-9); NEUT % 83 % (31-73); PLATELET COUNT 240 x10^3/uL (140-400); RED BLOOD COUNT 4.07 x10^6/uL (3.50-5.40); RED CELL DISTRIBUTION WIDTH 15.7 % (11.5-14.5); WHITE BLOOD COUNT 12.3 x10^3/uL (4.0-11.0)
[2016-11-01 05:41] LABS: CALCIUM 6.9 mg/dL (8.5-10.1); CREATININE 1.6 mg/dL (0.6-1.0); GFR 39.4; POTASSIUM 4.1 mmol/L (3.5-5.1)
[2016-11-01 05:57] LABS: CKMB MASS 8.2 ng/mL (0.0-3.6)
[2016-11-01] MEDS: HEPARIN PF for SUB-Q USE 5,000 UNIT/0.5 ML VIAL. SQ SCH ×3 (07:08→21:33)
--- NOTE | 2016-11-01 07:42 | PDOC ---
PULMONARY PROGRESS NOTES Subjective PT SEDATED ON VERSED INTUBATED 10/31 SEC TO FAILURE ON BIPAP DECREASE Vitals Vital Signs Date Time Temp Pulse Resp B/P (MAP) Pulse Ox O2 Delivery O2 Flow Rate FiO2 11/01/16 07:00 62 16 114/71 (85) 95 Ventilator 11/01/16 04:00 99.1 99.1 Lungs: Clear Cardiovascular: S1, S2 Abdomen: Soft, Non-tender Extremities: Other (EDEMA) Skin: Warm Labs Laboratory Tests Test 10/31/16 10:31 10/31/16 11:00 10/31/16 11:08 10/31/16 12:55 White Blood Count 14.8 x10^3/uL (4.0-11.0) Red Blood Count 4.29 x10^6/uL (3.50-5.40) Hemoglobin 12.3 g/dL (12.0-15.5) Hematocrit 38.1 % (36.0-47.0) Mean Corpuscular Volume 89 fL (79-100) Mean Corpuscular Hemoglobin 29 pg (25-35) Mean Corpuscular Hemoglobin Concent 32 g/dL (31-37) Red Cell Distribution Width 15.4 % (11.5-14.5) Platelet Count 240 x10^3/uL (140-400) Neutrophils (%) (Auto) 76 % (31-73) Lymphocytes (%) (Auto) 13 % (24-48) Monocytes (%) (Auto) 10 % (0-9) Eosinophils (%) (Auto) 0 % (0-3) Basophils (%) (Auto) 1 % (0-3) Neutrophils # (Auto) 11.3 x10^3uL (1.8-7.7) Lymphocytes # (Auto) 2.0 x10^3/uL (1.0-4.8) Monocytes # (Auto) 1.4 x10^3/uL (0.0-1.1) Eosinophils # (Auto) 0.0 x10^3/uL (0.0-0.7) Basophils # (Auto) 0.1 x10^3/uL (0.0-0.2) Prothrombin Time 13.1 SEC (11.7-14.0) Prothromb Time International Ratio 1.1 (0.8-1.1) Lactic Acid Level 1.2 mmol/L (0.4-2.0) O2 Saturation 88 % (92-99) 91 % (92-99) Arterial Blood pH 7.31 (7.35-7.45) 7.36 (7.35-7.45) Arterial Blood pCO2 at Patient Temp 59 mmHg (35-46) 49 mmHg (35-46) Arterial Blood pO2 at Patient Temp 64 mmHg (65-108) 67 mmHg (65-108) Arterial Blood HCO3 29 mmol/L (21-28) 27 mmol/L (21-28) Arterial Blood Base Excess 2 mmol/L (-3-3) 1 mmol/L (-3-3) FiO2 50 50.0 Sodium Level 137 mmol/L (136-145) Potassium Level 3.6 mmol/L (3.5-5.1) Chloride Level 98 mmol/L (98-107) Carbon Dioxide Level 30 mmol/L (21-32) Anion Gap 9 (6-14) Blood Urea Nitrogen 33 mg/dL (7-20) Creatinine 2.1 mg/dL (0.6-1.0) Estimated GFR (Cockcroft-Gault) 28.8 Glucose Level 125 mg/dL (70-99) Calcium Level 8.5 mg/dL (8.5-10.1) Magnesium Level 2.2 mg/dL (1.8-2.4) Total Bilirubin 0.4 mg/dL (0.2-1.0) Direct Bilirubin 0.2 mg/dL (0.0-0.2) Aspartate Amino Transf (AST/SGOT) 65 U/L (15-37) Alanine Aminotransferase (ALT/SGPT) 32 U/L (14-59) Alkaline Phosphatase 137 U/L (46-116) Creatine Kinase 2474 U/L (26-192) Creatine Kinase MB (Mass) 10.2 ng/mL (0.0-3.6) Creatine Kinase MB Relative Index 0.4 % (0-4) Troponin I Quantitative 0.035 ng/mL (0.000-0.055) EF-Ihu-J-Type Natriuretic Peptide 201 pg/mL (0-124) Total Protein 8.1 g/dL (6.4-8.2) Albumin 3.6 g/dL (3.4-5.0) Lipase 36 U/L (73-393) Thyroid Stimulating Hormone (TSH) 1.216 uIU/mL (0.358-3.74) Test 10/31/16 13:30 10/31/16 14:45 10/31/16 15:15 10/31/16 18:00 Urine Collection Type U cath Urine Color Daisy Urine Clarity Cloudy Urine pH 5.0 Urine Specific [place] 1.015 Urine Protein 30 mg/dL (NEG-TRACE) Urine Glucose (UA) Negative mg/dL (NEG) Urine Ketones (Stick) Negative mg/dL (NEG) Urine Blood Negative (NEG) Urine Nitrite Negative (NEG) Urine Bilirubin Small (NEG) Urine Urobilinogen Dipstick 1.0 mg/dL (0.2 mg/dL) Urine Leukocyte Esterase Trace (NEG) Urine RBC 0 /HPF (0-2) Urine WBC 5-10 /HPF (0-4) Urine Bacteria Many /HPF (0-FEW) Urine Hyaline Casts Many /HPF Urine Mucus Mod /LPF Urine Opiates Screen Neg (NEG) Urine Methadone Screen Neg (NEG) Urine Barbiturates Neg (NEG) Urine Phencyclidine Screen Neg (NEG) Urine Amphetamine/Methamphetamine Neg (NEG) Urine Benzodiazepines Screen Neg (NEG) Urine Cocaine Screen Neg (NEG) Urine Cannabinoids Screen Neg (NEG) Urine Ethyl Alcohol Neg (NEG) Lactic Acid Level 0.8 mmol/L (0.4-2.0) O2 Saturation 88 % (92-99) 99 % (92-99) Arterial Blood pH 7.27 (7.35-7.45) 7.18 (7.35-7.45) Arterial Blood pCO2 at Patient Temp 54 mmHg (35-46) 70 mmHg (35-46) Arterial Blood pO2 at Patient Temp 64 mmHg (65-108) 185 mmHg (65-108) Arterial Blood HCO3 25 mmol/L (21-28) 25 mmol/L (21-28) Arterial Blood Base Excess -3 mmol/L (-3-3) -4 mmol/L (-3-3) FiO2 70 100 Oxyhemoglobin 97.5 % Methemoglobin 0.4 % (0.0-1.9) Carbon Monoxide, Quantitative 0.9 % (0.0-1.9) Test 10/31/16 20:04 10/31/16 20:25 11/01/16 05:00 O2 Saturation 95 % (92-99) Arterial Blood pH 7.30 (7.35-7.45) Arterial Blood pCO2 at Patient Temp 51 mmHg (35-46) Arterial Blood pO2 at Patient Temp 88 mmHg (65-108) Arterial Blood HCO3 24 mmol/L (21-28) Arterial Blood Base Excess -3 mmol/L (-3-3) FiO2 100 Troponin I Quantitative 0.072 ng/mL (0.000-0.055) 0.045 ng/mL (0.000-0.055) White Blood Count 12.3 x10^3/uL (4.0-11.0) Red Blood Count 4.07 x10^6/uL (3.50-5.40) Hemoglobin 11.7 g/dL (12.0-15.5) Hematocrit 36.3 % (36.0-47.0) Mean Corpuscular Volume 89 fL (79-100) Mean Corpuscular Hemoglobin 29 pg (25-35) Mean Corpuscular Hemoglobin Concent 32 g/dL (31-37) Red Cell Distribution Width 15.7 % (11.5-14.5) Platelet Count 240 x10^3/uL (140-400) Neutrophils (%) (Auto) 83 % (31-73) Lymphocytes (%) (Auto) 8 % (24-48) Monocytes (%) (Auto) 8 % (0-9) Eosinophils (%) (Auto) 0 % (0-3) Basophils (%) (Auto) 0 % (0-3) Neutrophils # (Auto) 10.2 x10^3uL (1.8-7.7) Lymphocytes # (Auto) 1.0 x10^3/uL (1.0-4.8) Monocytes # (Auto) 1.0 x10^3/uL (0.0-1.1) Eosinophils # (Auto) 0.0 x10^3/uL (0.0-0.7) Basophils # (Auto) 0.0 x10^3/uL (0.0-0.2) Sodium Level 145 mmol/L (136-145) Potassium Level 4.1 mmol/L (3.5-5.1) Chloride Level 106 mmol/L (98-107) Carbon Dioxide Level 27 mmol/L (21-32) Anion Gap 12 (6-14) Blood Urea Nitrogen 36 mg/dL (7-20) Creatinine 1.6 mg/dL (0.6-1.0) Estimated GFR (Cockcroft-Gault) 39.4 Glucose Level 144 mg/dL (70-99) Calcium Level 6.9 mg/dL (8.5-10.1) Creatine Kinase 2405 U/L (26-192) Creatine Kinase MB (Mass) 8.2 ng/mL (0.0-3.6) Creatine Kinase MB Relative Index 0.3 % (0-4) Triglycerides Level 138 mg/dL (0-150) Cholesterol Level 144 mg/dL (0-200) LDL Cholesterol, Calculated 92 mg/dL (0-100) VLDL Cholesterol, Calculated 28 mg/dL (0-40) Non-HDL Cholesterol Calculated 120 mg/dL (0-129) HDL Cholesterol 24 mg/dL (40-60) Cholesterol/HDL Ratio 6.0 Laboratory Tests Test 10/31/16 10:31 10/31/16 11:00 10/31/16 11:08 10/31/16 12:55 White Blood Count 14.8 x10^3/uL (4.0-11.0) Red Blood Count 4.29 x10^6/uL (3.50-5.40) Hemoglobin 12.3 g/dL (12.0-15.5) Hematocrit 38.1 % (36.0-47.0) Mean Corpuscular Volume 89 fL (79-100) Mean Corpuscular Hemoglobin 29 pg (25-35) Mean Corpuscular Hemoglobin Concent 32 g/dL (31-37) Red Cell Distribution Width 15.4 % (11.5-14.5) Platelet Count 240 x10^3/uL (140-400) Neutrophils (%) (Auto) 76 % (31-73) Lymphocytes (%) (Auto) 13 % (24-48) Monocytes (%) (Auto) 10 % (0-9) Eosinophils (%) (Auto) 0 % (0-3) Basophils (%) (Auto) 1 % (0-3) Neutrophils # (Auto) 11.3 x10^3uL (1.8-7.7) Lymphocytes # (Auto) 2.0 x10^3/uL (1.0-4.8) Monocytes # (Auto) 1.4 x10^3/uL (0.0-1.1) Eosinophils # (Auto) 0.0 x10^3/uL (0.0-0.7) Basophils # (Auto) 0.1 x10^3/uL (0.0-0.2) Prothrombin Time 13.1 SEC (11.7-14.0) Prothromb Time International Ratio 1.1 (0.8-1.1) Lactic Acid Level 1.2 mmol/L (0.4-2.0) O2 Saturation 88 % (92-99) 91 % (92-99) Arterial Blood pH 7.31 (7.35-7.45) 7.36 (7.35-7.45) Arterial Blood pCO2 at Patient Temp 59 mmHg (35-46) 49 mmHg (35-46) Arterial Blood pO2 at Patient Temp 64 mmHg (65-108) 67 mmHg (65-108) Arterial Blood HCO3 29 mmol/L (21-28) 27 mmol/L (21-28) Arterial Blood Base Excess 2 mmol/L (-3-3) 1 mmol/L (-3-3) FiO2 50 50.0 Sodium Level 137 mmol/L (136-145) Potassium Level 3.6 mmol/L (3.5-5.1) Chloride Level 98 mmol/L (98-107) Carbon Dioxide Level 30 mmol/L (21-32) Anion Gap 9 (6-14) Blood Urea Nitrogen 33 mg/dL (7-20) Creatinine 2.1 mg/dL (0.6-1.0) Estimated GFR (Cockcroft-Gault) 28.8 Glucose Level 125 mg/dL (70-99) Calcium Level 8.5 mg/dL (8.5-10.1) Magnesium Level 2.2 mg/dL (1.8-2.4) Total Bilirubin 0.4 mg/dL (0.2-1.0) Direct Bilirubin 0.2 mg/dL (0.0-0.2) Aspartate Amino Transf (AST/SGOT) 65 U/L (15-37) Alanine Aminotransferase (ALT/SGPT) 32 U/L (14-59) Alkaline Phosphatase 137 U/L (46-116) Creatine Kinase 2474 U/L (26-192) Creatine Kinase MB (Mass) 10.2 ng/mL (0.0-3.6) Creatine Kinase MB Relative Index 0.4 % (0-4) Troponin I Quantitative 0.035 ng/mL (0.000-0.055) EJ-Kbp-K-Type Natriuretic Peptide 201 pg/mL (0-124) Total Protein 8.1 g/dL (6.4-8.2) Albumin 3.6 g/dL (3.4-5.0) Lipase 36 U/L (73-393) Thyroid Stimulating Hormone (TSH) 1.216 uIU/mL (0.358-3.74) Test 10/31/16 13:30 10/31/16 14:45 10/31/16 15:15 10/31/16 18:00 Urine Collection Type U cath Urine Color Daisy Urine Clarity Cloudy Urine pH 5.0 Urine Specific [place] 1.015 Urine Protein 30 mg/dL (NEG-TRACE) Urine Glucose (UA) Negative mg/dL (NEG) Urine Ketones (Stick) Negative mg/dL (NEG) Urine Blood Negative (NEG) Urine Nitrite Negative (NEG) Urine Bilirubin Small (NEG) Urine Urobilinogen Dipstick 1.0 mg/dL (0.2 mg/dL) Urine Leukocyte Esterase Trace (NEG) Urine RBC 0 /HPF (0-2) Urine WBC 5-10 /HPF (0-4) Urine Bacteria Many /HPF (0-FEW) Urine Hyaline Casts Many /HPF Urine Mucus Mod /LPF Urine Opiates Screen Neg (NEG) Urine Methadone Screen Neg (NEG) Urine Barbiturates Neg (NEG) Urine Phencyclidine Screen Neg (NEG) Urine Amphetamine/Methamphetamine Neg (NEG) Urine Benzodiazepines Screen Neg (NEG) Urine Cocaine Screen Neg (NEG) Urine Cannabinoids Screen Neg (NEG) Urine Ethyl Alcohol Neg (NEG) Lactic Acid Level 0.8 mmol/L (0.4-2.0) O2 Saturation 88 % (92-99) 99 % (92-99) Arterial Blood pH 7.27 (7.35-7.45) 7.18 (7.35-7.45) Arterial Blood pCO2 at Patient Temp 54 mmHg (35-46) 70 mmHg (35-46) Arterial Blood pO2 at Patient Temp 64 mmHg (65-108) 185 mmHg (65-108) Arterial Blood HCO3 25 mmol/L (21-28) 25 mmol/L (21-28) Arterial Blood Base Excess -3 mmol/L (-3-3) -4 mmol/L (-3-3) FiO2 70 100 Oxyhemoglobin 97.5 % Methemoglobin 0.4 % (0.0-1.9) Carbon Monoxide, Quantitative 0.9 % (0.0-1.9) Test 10/31/16 20:04 10/31/16 20:25 11/01/16 05:00 O2 Saturation 95 % (92-99) Arterial Blood pH 7.30 (7.35-7.45) Arterial Blood pCO2 at Patient Temp 51 mmHg (35-46) Arterial Blood pO2 at Patient Temp 88 mmHg (65-108) Arterial Blood HCO3 24 mmol/L (21-28) Arterial Blood Base Excess -3 mmol/L (-3-3) FiO2 100 Troponin I Quantitative 0.072 ng/mL (0.000-0.055) 0.045 ng/mL (0.000-0.055) White Blood Count 12.3 x10^3/uL (4.0-11.0) Red Blood Count 4.07 x10^6/uL (3.50-5.40) Hemoglobin 11.7 g/dL (12.0-15.5) Hematocrit 36.3 % (36.0-47.0) Mean Corpuscular Volume 89 fL (79-100) Mean Corpuscular Hemoglobin 29 pg (25-35) Mean Corpuscular Hemoglobin Concent 32 g/dL (31-37) Red Cell Distribution Width 15.7 % (11.5-14.5) Platelet Count 240 x10^3/uL (140-400) Neutrophils (%) (Auto) 83 % (31-73) Lymphocytes (%) (Auto) 8 % (24-48) Monocytes (%) (Auto) 8 % (0-9) Eosinophils (%) (Auto) 0 % (0-3) Basophils (%) (Auto) 0 % (0-3) Neutrophils # (Auto) 10.2 x10^3uL (1.8-7.7) Lymphocytes # (Auto) 1.0 x10^3/uL (1.0-4.8) Monocytes # (Auto) 1.0 x10^3/uL (0.0-1.1) Eosinophils # (Auto) 0.0 x10^3/uL (0.0-0.7) Basophils # (Auto) 0.0 x10^3/uL (0.0-0.2) Sodium Level 145 mmol/L (136-145) Potassium Level 4.1 mmol/L (3.5-5.1) Chloride Level 106 mmol/L (98-107) Carbon Dioxide Level 27 mmol/L (21-32) Anion Gap 12 (6-14) Blood Urea Nitrogen 36 mg/dL (7-20) Creatinine 1.6 mg/dL (0.6-1.0) Estimated GFR (Cockcroft-Gault) 39.4 Glucose Level 144 mg/dL (70-99) Calcium Level 6.9 mg/dL (8.5-10.1) Creatine Kinase 2405 U/L (26-192) Creatine Kinase MB (Mass) 8.2 ng/mL (0.0-3.6) Creatine Kinase MB Relative Index 0.3 % (0-4) Triglycerides Level 138 mg/dL (0-150) Cholesterol Level 144 mg/dL (0-200) LDL Cholesterol, Calculated 92 mg/dL (0-100) VLDL Cholesterol, Calculated 28 mg/dL (0-40) Non-HDL Cholesterol Calculated 120 mg/dL (0-129) HDL Cholesterol 24 mg/dL (40-60) Cholesterol/HDL Ratio 6.0 Medications Active Scripts Medications Dose Route/Sig Max Daily Dose Days Date Category Trazodone Hcl 100 Mg Tablet 100 Mg PO HS 10/31/16 Reported Polyethylene Glycol 3350 255 Gm Powder 17 Gm PO DAILY 10/31/16 Reported Olanzapine 20 Mg Tablet 2 Tab PO QHS 10/31/16 Reported Montelukast Sodium Tablet (Montelukast Sodium) 10 Mg Tablet 10 Mg PO HS 10/31/16 Reported Meloxicam 15 Mg Tablet 1 Tab PO DAILY 10/31/16 Reported Losartan Potassium 50 Mg Tablet 50 Mg PO DAILY 10/31/16 Reported Lorazepam 1 Mg Tablet 1 Mg PO HS 10/31/16 Reported Lasix (Furosemide) 40 Mg Tablet 40 Mg PO PRN DAILY 10/31/16 Reported Hydrochlorothiazide Tablet (Hydrochlorothiazide) 25 Mg Tablet 25 Mg PO DAILY 10/31/16 Reported Folic Acid 1 Mg Tablet 1 Mg PO DAILY 10/31/16 Reported Fluoxetine Hcl 40 Mg Capsule 40 Mg PO DAILY 10/31/16 Reported Famotidine 20 Mg Tablet 20 Mg PO BID 10/31/16 Reported Duoneb 0.5-3(2.5) Mg/3 Ml (Albuterol/Ipratropium) 3 Ml Ampul.neb 3 Ml NEB QID 10/31/16 Reported Docusate Sodium 100 Mg Capsule 1 Cap PO BID 10/31/16 Reported Clonidine Hcl 0.1 Mg Tablet 0.1 Mg PO QID 10/31/16 Reported Cetirizine Hcl 10 Mg Tablet 1 Tab PO DAILY 10/31/16 Reported Comments Hazy opacity left mid to lower lung could be secondary to asymmetric edema, atelectasis or infiltrate. Enlarged cardiac silhouette. Impression . A/C HYPERCAPNIA HYPOXEMIC RESP FAILURE MULTIFACTORIAL FAILED BIPAP INTUBATED ACUTE HEART FAILURE SUSPECT DIASTOLIC TALHA/OHS ACUTE RENAL FAILURE MORBID OBESITY FEVER POSSIBLE PNEUMONIA GRAM NEG/GRAM POS POSSIBLE SEPSIS Plan . AC MODE ON 7 PEEP AND 70% DIURESE ANTIBX DVT AND GI PROPH CARD CONSULTED IV FLUIDS LACTIC ACID LEVEL REPEAT LOW DOUBT SEPSIS WILL CONTINUE SUPPORT FOR NOW CLIVE MEDRANO MD Nov 01, 2016 07:42
[2016-11-01 08:26] LABS: HCO3 ABG 28 mmol/L (21-28); PCO2 ABG 52 mmHg (35-46); PH ABG 7.34 (7.35-7.45); PO2 ABG 62 mmHg (65-108); SAT O2 ABG 88 % (92-99)
[2016-11-01 08:29] LABS: FIO2 ABG 70
[2016-11-01] MEDS: IPRATRPIUM/ALBUTEROL 0.5/2.5MG 3 ML NEBU. NEB SCH ×4 (08:33→20:04)
[2016-11-01] MEDS: MIDAZOLAM PREMIX 100 ML IV PRN ×2 (08:41→19:45)
[2016-11-01] MEDS: IV NORMAL SALINE 1000ML BAG 1,000 ML IV SCH ×2 (08:57→17:10)
--- NOTE | 2016-11-01 09:21 | RAD ---
INDICATION: Resp Fail 105 COMPARISON: 1 day prior FINDINGS: Single view of chest obtained. Endotracheal tube mid thoracic trachea. Enteric tube coursing below diaphragm. Enlarged cardiac silhouette. Mild interstitial prominence again seen. Hazy opacity in the left mid to lower lung Degenerative changes shoulders. IMPRESSION: Hazy opacity left mid to lower lung could be secondary to asymmetric edema, atelectasis or infiltrate. Enlarged cardiac silhouette.
[2016-11-01] MEDS: VANCOMYCIN PER PHARMACY MC PRN (09:41)
[2016-11-01] MEDS: CHLORHEXIDINE 0.12% 15 ML MOUTHWASH. MM SCH ×2 (10:27→20:03)
--- NOTE | 2016-11-01 12:13 | CARD ---
APPROVED REPORT EXAM: Two-dimensional and M-mode echocardiogram with Doppler and color Doppler. Other Information Quality : Good INDICATION Dyspnea Congestive Heart Failure 2D DIMENSIONS RVDd3.4 (2.9-3.5cm)Left Atrium(2D)3.4 (1.6-4.0cm) IVSd0.9 (0.7-1.1cm)Aortic Root(2D)2.4 (2.0-3.7cm) LVDd4.4 (3.9-5.9cm)LVOT Diameter2.0 (1.8-2.4cm) PWd1.0 (0.7-1.1cm)LVDs2.9 (2.5-4.0cm) FS (%) 34.5 %SV56.4 ml LVEF(%)63.9 (>50%) Aortic Valve AoV Peak Isma.100.1cm/sAoV VTI15.5cm AO Peak GR.4.0mmHgLVOT VTI 20.26cm AO Mean GR.2mmHgAVA (VTI)4.10cm2 Mitral Valve MV E Adjialgf870.6cm/sMV DECEL [id number] MV A Ourjmxiz486.3cm/sE/A Ratio1.3 TDI Lateral E' P. V7.66cm/sMedial E' P. V7.17cm/s E/Lateral E'17.0E/Medial E'18.2 Tricuspid Valve TR P. Thhhttah073sk/sRAP [id number] TR Peak Gr.56byUcGITL09deMr Pulmonary Vein S1 Mhmdqnxx07.1cm/sS2 Rjfnjvno87.56cm/s D2 Viksuklq25.6cm/s LEFT VENTRICLE The left ventricle is normal size. There is normal left ventricular wall thickness. The left ventricu lar systolic function is normal and the ejection fraction is within normal range. The Ejection Fracti on is 60-65%. There is normal LV segmental wall motion. RIGHT VENTRICLE The right ventricle is normal size. The right ventricular systolic function is normal. ATRIA The left atrium size is normal. The right atrium size is normal. The interatrial septum is intact wit h no evidence for an atrial septal defect or patent foramen ovale as noted on 2-D or Doppler imaging. AORTIC VALVE The aortic valve is not well visualized. Doppler and Color Flow revealed no significant aortic regurg itation. There is no significant aortic valvular stenosis. MITRAL VALVE The mitral valve is calcified but opens well. There is no evidence of mitral valve prolapse. There is no mitral valve stenosis. Doppler and Color-flow revealed trace mitral regurgitation. TRICUSPID VALVE The tricuspid valve is normal in structure and function. Doppler and Color Flow revealed mild tricusp id regurgitation. The PA pressure was estimated at 43 mmHg. There is no tricuspid valve stenosis. PULMONIC VALVE The pulmonary valve is normal in structure and function. Doppler and Color Flow revealed trace pulmon ic valvular regurgitation. There is no pulmonic valvular stenosis. GREAT VESSELS The aortic root is normal in size. The ascending aorta is normal in size. The IVC was not visualized. PERICARDIAL EFFUSION There is no evidence of significant pericardial effusion. Critical Notification Critical Value: No <Conclusion> The left ventricle is normal size. The left ventricular systolic function is normal and the ejection fraction is within normal range. The Ejection Fraction is 60-65%. There is no significant aortic valvular stenosis. Doppler and Color Flow revealed no significant aortic regurgitation. Doppler and Color-flow revealed trace mitral regurgitation. Doppler and Color Flow revealed mild tricuspid regurgitation. The PA pressure was estimated at 43 mmHg.
--- NOTE | 2016-11-01 12:16 | PDOC ---
CARDIO Progress Notes Date and Time Date of Service 11/01/2016 Time of Evaluation 1200 Subjective Subjective: Other (intubated and sedated) Vitals Vitals Vital Signs Date Time Temp Pulse Resp B/P (MAP) Pulse Ox O2 Delivery O2 Flow Rate FiO2 11/01/16 11:41 95 Ventilator 11/01/16 07:00 62 16 114/71 (85) 11/01/16 04:00 99.1 99.1 Weight Weight [ ] Input and Output Intake and Output Intake and Output 11/01/16 07:00 Intake Total 3067 ml Output Total 2740 ml Balance 327 ml Intake Oral 0 ml IV Total 3067 ml Output Urine Total 2740 ml Laboratory Labs Laboratory Tests Test 10/31/16 12:55 10/31/16 13:30 10/31/16 14:45 10/31/16 15:15 O2 Saturation 91 % (92-99) 88 % (92-99) Arterial Blood pH 7.36 (7.35-7.45) 7.27 (7.35-7.45) Arterial Blood pCO2 at Patient Temp 49 mmHg (35-46) 54 mmHg (35-46) Arterial Blood pO2 at Patient Temp 67 mmHg (65-108) 64 mmHg (65-108) Arterial Blood HCO3 27 mmol/L (21-28) 25 mmol/L (21-28) Arterial Blood Base Excess 1 mmol/L (-3-3) -3 mmol/L (-3-3) FiO2 50.0 70 Urine Collection Type U cath Urine Color Daisy Urine Clarity Cloudy Urine pH 5.0 Urine Specific [place] 1.015 Urine Protein 30 mg/dL (NEG-TRACE) Urine Glucose (UA) Negative mg/dL (NEG) Urine Ketones (Stick) Negative mg/dL (NEG) Urine Blood Negative (NEG) Urine Nitrite Negative (NEG) Urine Bilirubin Small (NEG) Urine Urobilinogen Dipstick 1.0 mg/dL (0.2 mg/dL) Urine Leukocyte Esterase Trace (NEG) Urine RBC 0 /HPF (0-2) Urine WBC 5-10 /HPF (0-4) Urine Bacteria Many /HPF (0-FEW) Urine Hyaline Casts Many /HPF Urine Mucus Mod /LPF Urine Opiates Screen Neg (NEG) Urine Methadone Screen Neg (NEG) Urine Barbiturates Neg (NEG) Urine Phencyclidine Screen Neg (NEG) Urine Amphetamine/Methamphetamine Neg (NEG) Urine Benzodiazepines Screen Neg (NEG) Urine Cocaine Screen Neg (NEG) Urine Cannabinoids Screen Neg (NEG) Urine Ethyl Alcohol Neg (NEG) Lactic Acid Level 0.8 mmol/L (0.4-2.0) Test 10/31/16 18:00 10/31/16 20:04 10/31/16 20:25 11/01/16 05:00 O2 Saturation 99 % (92-99) 95 % (92-99) Arterial Blood pH 7.18 (7.35-7.45) 7.30 (7.35-7.45) Arterial Blood pCO2 at Patient Temp 70 mmHg (35-46) 51 mmHg (35-46) Arterial Blood pO2 at Patient Temp 185 mmHg (65-108) 88 mmHg (65-108) Arterial Blood HCO3 25 mmol/L (21-28) 24 mmol/L (21-28) Arterial Blood Base Excess -4 mmol/L (-3-3) -3 mmol/L (-3-3) Oxyhemoglobin 97.5 % Methemoglobin 0.4 % (0.0-1.9) Carbon Monoxide, Quantitative 0.9 % (0.0-1.9) FiO2 100 100 Troponin I Quantitative 0.072 ng/mL (0.000-0.055) 0.045 ng/mL (0.000-0.055) White Blood Count 12.3 x10^3/uL (4.0-11.0) Red Blood Count 4.07 x10^6/uL (3.50-5.40) Hemoglobin 11.7 g/dL (12.0-15.5) Hematocrit 36.3 % (36.0-47.0) Mean Corpuscular Volume 89 fL (79-100) Mean Corpuscular Hemoglobin 29 pg (25-35) Mean Corpuscular Hemoglobin Concent 32 g/dL (31-37) Red Cell Distribution Width 15.7 % (11.5-14.5) Platelet Count 240 x10^3/uL (140-400) Neutrophils (%) (Auto) 83 % (31-73) Lymphocytes (%) (Auto) 8 % (24-48) Monocytes (%) (Auto) 8 % (0-9) Eosinophils (%) (Auto) 0 % (0-3) Basophils (%) (Auto) 0 % (0-3) Neutrophils # (Auto) 10.2 x10^3uL (1.8-7.7) Lymphocytes # (Auto) 1.0 x10^3/uL (1.0-4.8) Monocytes # (Auto) 1.0 x10^3/uL (0.0-1.1) Eosinophils # (Auto) 0.0 x10^3/uL (0.0-0.7) Basophils # (Auto) 0.0 x10^3/uL (0.0-0.2) Sodium Level 145 mmol/L (136-145) Potassium Level 4.1 mmol/L (3.5-5.1) Chloride Level 106 mmol/L (98-107) Carbon Dioxide Level 27 mmol/L (21-32) Anion Gap 12 (6-14) Blood Urea Nitrogen 36 mg/dL (7-20) Creatinine 1.6 mg/dL (0.6-1.0) Estimated GFR (Cockcroft-Gault) 39.4 Glucose Level 144 mg/dL (70-99) Calcium Level 6.9 mg/dL (8.5-10.1) Creatine Kinase 2405 U/L (26-192) Creatine Kinase MB (Mass) 8.2 ng/mL (0.0-3.6) Creatine Kinase MB Relative Index 0.3 % (0-4) Triglycerides Level 138 mg/dL (0-150) Cholesterol Level 144 mg/dL (0-200) LDL Cholesterol, Calculated 92 mg/dL (0-100) VLDL Cholesterol, Calculated 28 mg/dL (0-40) Non-HDL Cholesterol Calculated 120 mg/dL (0-129) HDL Cholesterol 24 mg/dL (40-60) Cholesterol/HDL Ratio 6.0 Test 11/01/16 08:00 O2 Saturation 88 % (92-99) Arterial Blood pH 7.34 (7.35-7.45) Arterial Blood pCO2 at Patient Temp 52 mmHg (35-46) Arterial Blood pO2 at Patient Temp 62 mmHg (65-108) Arterial Blood HCO3 28 mmol/L (21-28) Arterial Blood Base Excess 1 mmol/L (-3-3) FiO2 70 Microbiology Micro Microbiology 10/31/16 Blood Culture - Preliminary, Resulted NO GROWTH AFTER 1 DAY 11/01/16 Gram Stain - Final, Complete Physical Exam HEENT: Neck Supple W Full Motion Chest: Symmetric LUNGS: Other (diffuse whezze, with bibasilar crackles; intubated) Heart: S1S2, RRR (SR without significant ectopies) Abdomen: Soft N/T Extremities: No Calf Tenderness, Other (1+ bilateral LE pitting edema) Neurology: other (sedated) Assessment Assessment 1. Acute respiratory failure with likely HCAP 2. Suspecting TALHA with hx of asthma 3. Acute on chronic diastolic CHF: induced by above 4. Rhabdomyolysis: likely from febrile episodes but olanzapine use maybe contributing 5. MICHI: volume depletion with NSAID use. likely underlying CKD 6. Morbid obesity: BMI 52 7. HTN: low initially, now controlled 9. Tobaccoism Recommendations 1. Continue IV hydration, decent UOP, low dose lasix today. 2. Hold ARB, stop meloxicam 3. Preliminary TTE with normal EF. Failed Bipap, s/p intubation per pulmonary 4. Hold BP meds for now. 5. TTE pending DARIEL ORDONEZ APRN Nov 01, 2016 12:16
--- NOTE | 2016-11-01 12:32 | PDOC ---
PROGRESS NOTES Chief Complaint Chief Complaint acute hypoxic and hypercapnic resp failure with HAP, need bipap and then intubation 10/31 CHF history, no details, could be systolic exacerbation copd morbid obesity ckd with jerrod, vasomotor from mental health facility, schizophrenia HTN tobaccoism rhabdomyelitis sepsis with HAP PLAN: CARD pulm consulted ivf, hold po meds given got lasix 40mg iv x1 in ER, and low bp on vanco, zosyn ,levaquin from ER. check sputum cx,fu bcx npo, if not improving tmr, need OGT feeding labs tmr echo duoneb dvt, gi ppx ICU care, intubated , sedated, monitor bp and urine output. critical care 35min. History of Present Illness History of Present Illness worse last night, intubated now need o2 70% and PEEP 7 Vitals Vitals Vital Signs Date Time Temp Pulse Resp B/P (MAP) Pulse Ox O2 Delivery O2 Flow Rate FiO2 11/01/16 11:41 95 Ventilator 11/01/16 07:00 62 16 114/71 (85) 11/01/16 04:00 99.1 99.1 Physical Exam Physical Exam intubated, sedated Heart: Regular rate (SR), Normal S1, Normal S2, Other (difficult to note due to adventitious sounds and bipap) Lungs: Other (bl coarse bs) Abdomen: Soft, No tenderness, Other (obese, mild distended) Extremities: No cyanosis, Other (1+ bilateral LE pitting edema) Skin: No breakdown, No significant lesion Labs LABS Laboratory Tests Test 10/31/16 12:55 10/31/16 13:30 10/31/16 14:45 10/31/16 15:15 O2 Saturation 91 % (92-99) 88 % (92-99) Arterial Blood pH 7.36 (7.35-7.45) 7.27 (7.35-7.45) Arterial Blood pCO2 at Patient Temp 49 mmHg (35-46) 54 mmHg (35-46) Arterial Blood pO2 at Patient Temp 67 mmHg (65-108) 64 mmHg (65-108) Arterial Blood HCO3 27 mmol/L (21-28) 25 mmol/L (21-28) Arterial Blood Base Excess 1 mmol/L (-3-3) -3 mmol/L (-3-3) FiO2 50.0 70 Urine Collection Type U cath Urine Color Daisy Urine Clarity Cloudy Urine pH 5.0 Urine Specific [place]y 1.015 Urine Protein 30 mg/dL (NEG-TRACE) Urine Glucose (UA) Negative mg/dL (NEG) Urine Ketones (Stick) Negative mg/dL (NEG) Urine Blood Negative (NEG) Urine Nitrite Negative (NEG) Urine Bilirubin Small (NEG) Urine Urobilinogen Dipstick 1.0 mg/dL (0.2 mg/dL) Urine Leukocyte Esterase Trace (NEG) Urine RBC 0 /HPF (0-2) Urine WBC 5-10 /HPF (0-4) Urine Bacteria Many /HPF (0-FEW) Urine Hyaline Casts Many /HPF Urine Mucus Mod /LPF Urine Opiates Screen Neg (NEG) Urine Methadone Screen Neg (NEG) Urine Barbiturates Neg (NEG) Urine Phencyclidine Screen Neg (NEG) Urine Amphetamine/Methamphetamine Neg (NEG) Urine Benzodiazepines Screen Neg (NEG) Urine Cocaine Screen Neg (NEG) Urine Cannabinoids Screen Neg (NEG) Urine Ethyl Alcohol Neg (NEG) Lactic Acid Level 0.8 mmol/L (0.4-2.0) Test 10/31/16 18:00 10/31/16 20:04 10/31/16 20:25 11/01/16 05:00 O2 Saturation 99 % (92-99) 95 % (92-99) Arterial Blood pH 7.18 (7.35-7.45) 7.30 (7.35-7.45) Arterial Blood pCO2 at Patient Temp 70 mmHg (35-46) 51 mmHg (35-46) Arterial Blood pO2 at Patient Temp 185 mmHg (65-108) 88 mmHg (65-108) Arterial Blood HCO3 25 mmol/L (21-28) 24 mmol/L (21-28) Arterial Blood Base Excess -4 mmol/L (-3-3) -3 mmol/L (-3-3) Oxyhemoglobin 97.5 % Methemoglobin 0.4 % (0.0-1.9) Carbon Monoxide, Quantitative 0.9 % (0.0-1.9) FiO2 100 100 Troponin I Quantitative 0.072 ng/mL (0.000-0.055) 0.045 ng/mL (0.000-0.055) White Blood Count 12.3 x10^3/uL (4.0-11.0) Red Blood Count 4.07 x10^6/uL (3.50-5.40) Hemoglobin 11.7 g/dL (12.0-15.5) Hematocrit 36.3 % (36.0-47.0) Mean Corpuscular Volume 89 fL (79-100) Mean Corpuscular Hemoglobin 29 pg (25-35) Mean Corpuscular Hemoglobin Concent 32 g/dL (31-37) Red Cell Distribution Width 15.7 % (11.5-14.5) Platelet Count 240 x10^3/uL (140-400) Neutrophils (%) (Auto) 83 % (31-73) Lymphocytes (%) (Auto) 8 % (24-48) Monocytes (%) (Auto) 8 % (0-9) Eosinophils (%) (Auto) 0 % (0-3) Basophils (%) (Auto) 0 % (0-3) Neutrophils # (Auto) 10.2 x10^3uL (1.8-7.7) Lymphocytes # (Auto) 1.0 x10^3/uL (1.0-4.8) Monocytes # (Auto) 1.0 x10^3/uL (0.0-1.1) Eosinophils # (Auto) 0.0 x10^3/uL (0.0-0.7) Basophils # (Auto) 0.0 x10^3/uL (0.0-0.2) Sodium Level 145 mmol/L (136-145) Potassium Level 4.1 mmol/L (3.5-5.1) Chloride Level 106 mmol/L (98-107) Carbon Dioxide Level 27 mmol/L (21-32) Anion Gap 12 (6-14) Blood Urea Nitrogen 36 mg/dL (7-20) Creatinine 1.6 mg/dL (0.6-1.0) Estimated GFR (Cockcroft-Gault) 39.4 Glucose Level 144 mg/dL (70-99) Calcium Level 6.9 mg/dL (8.5-10.1) Creatine Kinase 2405 U/L (26-192) Creatine Kinase MB (Mass) 8.2 ng/mL (0.0-3.6) Creatine Kinase MB Relative Index 0.3 % (0-4) Triglycerides Level 138 mg/dL (0-150) Cholesterol Level 144 mg/dL (0-200) LDL Cholesterol, Calculated 92 mg/dL (0-100) VLDL Cholesterol, Calculated 28 mg/dL (0-40) Non-HDL Cholesterol Calculated 120 mg/dL (0-129) HDL Cholesterol 24 mg/dL (40-60) Cholesterol/HDL Ratio 6.0 Test 11/01/16 08:00 O2 Saturation 88 % (92-99) Arterial Blood pH 7.34 (7.35-7.45) Arterial Blood pCO2 at Patient Temp 52 mmHg (35-46) Arterial Blood pO2 at Patient Temp 62 mmHg (65-108) Arterial Blood HCO3 28 mmol/L (21-28) Arterial Blood Base Excess 1 mmol/L (-3-3) FiO2 70 Review of Systems Review of Systems no fever, chills, Comment Review of Relevant I have reviewed the following items asif (where applicable) has been applied. Labs Laboratory Tests Test 10/31/16 10:31 10/31/16 11:00 10/31/16 11:08 10/31/16 12:55 White Blood Count 14.8 x10^3/uL (4.0-11.0) Red Blood Count 4.29 x10^6/uL (3.50-5.40) Hemoglobin 12.3 g/dL (12.0-15.5) Hematocrit 38.1 % (36.0-47.0) Mean Corpuscular Volume 89 fL (79-100) Mean Corpuscular Hemoglobin 29 pg (25-35) Mean Corpuscular Hemoglobin Concent 32 g/dL (31-37) Red Cell Distribution Width 15.4 % (11.5-14.5) Platelet Count 240 x10^3/uL (140-400) Neutrophils (%) (Auto) 76 % (31-73) Lymphocytes (%) (Auto) 13 % (24-48) Monocytes (%) (Auto) 10 % (0-9) Eosinophils (%) (Auto) 0 % (0-3) Basophils (%) (Auto) 1 % (0-3) Neutrophils # (Auto) 11.3 x10^3uL (1.8-7.7) Lymphocytes # (Auto) 2.0 x10^3/uL (1.0-4.8) Monocytes # (Auto) 1.4 x10^3/uL (0.0-1.1) Eosinophils # (Auto) 0.0 x10^3/uL (0.0-0.7) Basophils # (Auto) 0.1 x10^3/uL (0.0-0.2) Prothrombin Time 13.1 SEC (11.7-14.0) Prothromb Time International Ratio 1.1 (0.8-1.1) Lactic Acid Level 1.2 mmol/L (0.4-2.0) O2 Saturation 88 % (92-99) 91 % (92-99) Arterial Blood pH 7.31 (7.35-7.45) 7.36 (7.35-7.45) Arterial Blood pCO2 at Patient Temp 59 mmHg (35-46) 49 mmHg (35-46) Arterial Blood pO2 at Patient Temp 64 mmHg (65-108) 67 mmHg (65-108) Arterial Blood HCO3 29 mmol/L (21-28) 27 mmol/L (21-28) Arterial Blood Base Excess 2 mmol/L (-3-3) 1 mmol/L (-3-3) FiO2 50 50.0 Sodium Level 137 mmol/L (136-145) Potassium Level 3.6 mmol/L (3.5-5.1) Chloride Level 98 mmol/L (98-107) Carbon Dioxide Level 30 mmol/L (21-32) Anion Gap 9 (6-14) Blood Urea Nitrogen 33 mg/dL (7-20) Creatinine 2.1 mg/dL (0.6-1.0) Estimated GFR (Cockcroft-Gault) 28.8 Glucose Level 125 mg/dL (70-99) Calcium Level 8.5 mg/dL (8.5-10.1) Magnesium Level 2.2 mg/dL (1.8-2.4) Total Bilirubin 0.4 mg/dL (0.2-1.0) Direct Bilirubin 0.2 mg/dL (0.0-0.2) Aspartate Amino Transf (AST/SGOT) 65 U/L (15-37) Alanine Aminotransferase (ALT/SGPT) 32 U/L (14-59) Alkaline Phosphatase 137 U/L (46-116) Creatine Kinase 2474 U/L (26-192) Creatine Kinase MB (Mass) 10.2 ng/mL (0.0-3.6) Creatine Kinase MB Relative Index 0.4 % (0-4) Troponin I Quantitative 0.035 ng/mL (0.000-0.055) OB-Tvo-I-Type Natriuretic Peptide 201 pg/mL (0-124) Total Protein 8.1 g/dL (6.4-8.2) Albumin 3.6 g/dL (3.4-5.0) Lipase 36 U/L (73-393) Thyroid Stimulating Hormone (TSH) 1.216 uIU/mL (0.358-3.74) Test 10/31/16 13:30 10/31/16 14:45 10/31/16 15:15 10/31/16 18:00 Urine Collection Type U cath Urine Color Daisy Urine Clarity Cloudy Urine pH 5.0 Urine Specific [place] 1.015 Urine Protein 30 mg/dL (NEG-TRACE) Urine Glucose (UA) Negative mg/dL (NEG) Urine Ketones (Stick) Negative mg/dL (NEG) Urine Blood Negative (NEG) Urine Nitrite Negative (NEG) Urine Bilirubin Small (NEG) Urine Urobilinogen Dipstick 1.0 mg/dL (0.2 mg/dL) Urine Leukocyte Esterase Trace (NEG) Urine RBC 0 /HPF (0-2) Urine WBC 5-10 /HPF (0-4) Urine Bacteria Many /HPF (0-FEW) Urine Hyaline Casts Many /HPF Urine Mucus Mod /LPF Urine Opiates Screen Neg (NEG) Urine Methadone Screen Neg (NEG) Urine Barbiturates Neg (NEG) Urine Phencyclidine Screen Neg (NEG) Urine Amphetamine/Methamphetamine Neg (NEG) Urine Benzodiazepines Screen Neg (NEG) Urine Cocaine Screen Neg (NEG) Urine Cannabinoids Screen Neg (NEG) Urine Ethyl Alcohol Neg (NEG) Lactic Acid Level 0.8 mmol/L (0.4-2.0) O2 Saturation 88 % (92-99) 99 % (92-99) Arterial Blood pH 7.27 (7.35-7.45) 7.18 (7.35-7.45) Arterial Blood pCO2 at Patient Temp 54 mmHg (35-46) 70 mmHg (35-46) Arterial Blood pO2 at Patient Temp 64 mmHg (65-108) 185 mmHg (65-108) Arterial Blood HCO3 25 mmol/L (21-28) 25 mmol/L (21-28) Arterial Blood Base Excess -3 mmol/L (-3-3) -4 mmol/L (-3-3) FiO2 70 100 Oxyhemoglobin 97.5 % Methemoglobin 0.4 % (0.0-1.9) Carbon Monoxide, Quantitative 0.9 % (0.0-1.9) Test 10/31/16 20:04 10/31/16 20:25 11/01/16 05:00 11/01/16 08:00 O2 Saturation 95 % (92-99) 88 % (92-99) Arterial Blood pH 7.30 (7.35-7.45) 7.34 (7.35-7.45) Arterial Blood pCO2 at Patient Temp 51 mmHg (35-46) 52 mmHg (35-46) Arterial Blood pO2 at Patient Temp 88 mmHg (65-108) 62 mmHg (65-108) Arterial Blood HCO3 24 mmol/L (21-28) 28 mmol/L (21-28) Arterial Blood Base Excess -3 mmol/L (-3-3) 1 mmol/L (-3-3) FiO2 100 70 Troponin I Quantitative 0.072 ng/mL (0.000-0.055) 0.045 ng/mL (0.000-0.055) White Blood Count 12.3 x10^3/uL (4.0-11.0) Red Blood Count 4.07 x10^6/uL (3.50-5.40) Hemoglobin 11.7 g/dL (12.0-15.5) Hematocrit 36.3 % (36.0-47.0) Mean Corpuscular Volume 89 fL (79-100) Mean Corpuscular Hemoglobin 29 pg (25-35) Mean Corpuscular Hemoglobin Concent 32 g/dL (31-37) Red Cell Distribution Width 15.7 % (11.5-14.5) Platelet Count 240 x10^3/uL (140-400) Neutrophils (%) (Auto) 83 % (31-73) Lymphocytes (%) (Auto) 8 % (24-48) Monocytes (%) (Auto) 8 % (0-9) Eosinophils (%) (Auto) 0 % (0-3) Basophils (%) (Auto) 0 % (0-3) Neutrophils # (Auto) 10.2 x10^3uL (1.8-7.7) Lymphocytes # (Auto) 1.0 x10^3/uL (1.0-4.8) Monocytes # (Auto) 1.0 x10^3/uL (0.0-1.1) Eosinophils # (Auto) 0.0 x10^3/uL (0.0-0.7) Basophils # (Auto) 0.0 x10^3/uL (0.0-0.2) Sodium Level 145 mmol/L (136-145) Potassium Level 4.1 mmol/L (3.5-5.1) Chloride Level 106 mmol/L (98-107) Carbon Dioxide Level 27 mmol/L (21-32) Anion Gap 12 (6-14) Blood Urea Nitrogen 36 mg/dL (7-20) Creatinine 1.6 mg/dL (0.6-1.0) Estimated GFR (Cockcroft-Gault) 39.4 Glucose Level 144 mg/dL (70-99) Calcium Level 6.9 mg/dL (8.5-10.1) Creatine Kinase 2405 U/L (26-192) Creatine Kinase MB (Mass) 8.2 ng/mL (0.0-3.6) Creatine Kinase MB Relative Index 0.3 % (0-4) Triglycerides Level 138 mg/dL (0-150) Cholesterol Level 144 mg/dL (0-200) LDL Cholesterol, Calculated 92 mg/dL (0-100) VLDL Cholesterol, Calculated 28 mg/dL (0-40) Non-HDL Cholesterol Calculated 120 mg/dL (0-129) HDL Cholesterol 24 mg/dL (40-60) Cholesterol/HDL Ratio 6.0 Laboratory Tests Test 10/31/16 12:55 10/31/16 13:30 10/31/16 14:45 10/31/16 15:15 O2 Saturation 91 % (92-99) 88 % (92-99) Arterial Blood pH 7.36 (7.35-7.45) 7.27 (7.35-7.45) Arterial Blood pCO2 at Patient Temp 49 mmHg (35-46) 54 mmHg (35-46) Arterial Blood pO2 at Patient Temp 67 mmHg (65-108) 64 mmHg (65-108) Arterial Blood HCO3 27 mmol/L (21-28) 25 mmol/L (21-28) Arterial Blood Base Excess 1 mmol/L (-3-3) -3 mmol/L (-3-3) FiO2 50.0 70 Urine Collection Type U cath Urine Color Daisy Urine Clarity Cloudy Urine pH 5.0 Urine Specific [place] 1.015 Urine Protein 30 mg/dL (NEG-TRACE) Urine Glucose (UA) Negative mg/dL (NEG) Urine Ketones (Stick) Negative mg/dL (NEG) Urine Blood Negative (NEG) Urine Nitrite Negative (NEG) Urine Bilirubin Small (NEG) Urine Urobilinogen Dipstick 1.0 mg/dL (0.2 mg/dL) Urine Leukocyte Esterase Trace (NEG) Urine RBC 0 /HPF (0-2) Urine WBC 5-10 /HPF (0-4) Urine Bacteria Many /HPF (0-FEW) Urine Hyaline Casts Many /HPF Urine Mucus Mod /LPF Urine Opiates Screen Neg (NEG) Urine Methadone Screen Neg (NEG) Urine Barbiturates Neg (NEG) Urine Phencyclidine Screen Neg (NEG) Urine Amphetamine/Methamphetamine Neg (NEG) Urine Benzodiazepines Screen Neg (NEG) Urine Cocaine Screen Neg (NEG) Urine Cannabinoids Screen Neg (NEG) Urine Ethyl Alcohol Neg (NEG) Lactic Acid Level 0.8 mmol/L (0.4-2.0) Test 10/31/16 18:00 10/31/16 20:04 10/31/16 20:25 11/01/16 05:00 O2 Saturation 99 % (92-99) 95 % (92-99) Arterial Blood pH 7.18 (7.35-7.45) 7.30 (7.35-7.45) Arterial Blood pCO2 at Patient Temp 70 mmHg (35-46) 51 mmHg (35-46) Arterial Blood pO2 at Patient Temp 185 mmHg (65-108) 88 mmHg (65-108) Arterial Blood HCO3 25 mmol/L (21-28) 24 mmol/L (21-28) Arterial Blood Base Excess -4 mmol/L (-3-3) -3 mmol/L (-3-3) Oxyhemoglobin 97.5 % Methemoglobin 0.4 % (0.0-1.9) Carbon Monoxide, Quantitative 0.9 % (0.0-1.9) FiO2 100 100 Troponin I Quantitative 0.072 ng/mL (0.000-0.055) 0.045 ng/mL (0.000-0.055) White Blood Count 12.3 x10^3/uL (4.0-11.0) Red Blood Count 4.07 x10^6/uL (3.50-5.40) Hemoglobin 11.7 g/dL (12.0-15.5) Hematocrit 36.3 % (36.0-47.0) Mean Corpuscular Volume 89 fL (79-100) Mean Corpuscular Hemoglobin 29 pg (25-35) Mean Corpuscular Hemoglobin Concent 32 g/dL (31-37) Red Cell Distribution Width 15.7 % (11.5-14.5) Platelet Count 240 x10^3/uL (140-400) Neutrophils (%) (Auto) 83 % (31-73) Lymphocytes (%) (Auto) 8 % (24-48) Monocytes (%) (Auto) 8 % (0-9) Eosinophils (%) (Auto) 0 % (0-3) Basophils (%) (Auto) 0 % (0-3) Neutrophils # (Auto) 10.2 x10^3uL (1.8-7.7) Lymphocytes # (Auto) 1.0 x10^3/uL (1.0-4.8) Monocytes # (Auto) 1.0 x10^3/uL (0.0-1.1) Eosinophils # (Auto) 0.0 x10^3/uL (0.0-0.7) Basophils # (Auto) 0.0 x10^3/uL (0.0-0.2) Sodium Level 145 mmol/L (136-145) Potassium Level 4.1 mmol/L (3.5-5.1) Chloride Level 106 mmol/L (98-107) Carbon Dioxide Level 27 mmol/L (21-32) Anion Gap 12 (6-14) Blood Urea Nitrogen 36 mg/dL (7-20) Creatinine 1.6 mg/dL (0.6-1.0) Estimated GFR (Cockcroft-Gault) 39.4 Glucose Level 144 mg/dL (70-99) Calcium Level 6.9 mg/dL (8.5-10.1) Creatine Kinase 2405 U/L (26-192) Creatine Kinase MB (Mass) 8.2 ng/mL (0.0-3.6) Creatine Kinase MB Relative Index 0.3 % (0-4) Triglycerides Level 138 mg/dL (0-150) Cholesterol Level 144 mg/dL (0-200) LDL Cholesterol, Calculated 92 mg/dL (0-100) VLDL Cholesterol, Calculated 28 mg/dL (0-40) Non-HDL Cholesterol Calculated 120 mg/dL (0-129) HDL Cholesterol 24 mg/dL (40-60) Cholesterol/HDL Ratio 6.0 Test 11/01/16 08:00 O2 Saturation 88 % (92-99) Arterial Blood pH 7.34 (7.35-7.45) Arterial Blood pCO2 at Patient Temp 52 mmHg (35-46) Arterial Blood pO2 at Patient Temp 62 mmHg (65-108) Arterial Blood HCO3 28 mmol/L (21-28) Arterial Blood Base Excess 1 mmol/L (-3-3) FiO2 70 Microbiology 10/31/16 Blood Culture - Preliminary, Resulted NO GROWTH AFTER 1 DAY 11/01/16 Gram Stain - Final, Complete Medications Current Medications Methylprednisolone Sodium Succinate (SOLU-Medrol 125MG VIAL) 125 mg 1X ONCE IV Last administered on 10/31/16 11:18; Start 10/31/16 at 11:00; Stop 10/31/16 at 11:01; Status DC Albuterol/ Ipratropium (Duoneb) 3 ml 1X ONCE NEB Last administered on 11:00; Start 10/31/16 at 11:00; Stop 10/31/16 at 11:01; Status DC Furosemide (Lasix) 40 mg 1X ONCE IVP Last administered on 10/31/16 11:17; Start 10/31/16 at 11:15; Stop 10/31/16 at 11:16; Status DC Vancomycin HCl (Vanco Per Pharmacy) 1 each PRN DAILY PRN MC SEE COMMENTS Last administered on 11/01/16 09:41; Start 10/31/16 at 11:30 Piperacillin Sod/ Tazobactam Sod (Zosyn Per Pharmacy) 1 each PRN DAILY PRN MC SEE COMMENTS; Start 10/31/16 at 11:30 Levofloxacin/ Dextrose (Levaquin Per Pharmacy) 1 each PRN DAILY PRN MC SEE COMMENTS; Start 10/31/16 at 11:30; Stop 10/31/16 at 12:57; Status DC Vancomycin HCl 2 gm/Sodium Chloride 500 ml @ 250 mls/hr 1X ONCE IV Last administered on 10/31/16 14:30; Start 10/31/16 at 11:30; Stop 10/31/16 at 13:29 ; Status DC Levofloxacin/ Dextrose 150 ml @ 100 mls/hr ONCE ONCE IV Last administered on 10/31/16 12:45; Start 10/31/16 at 11:30; Stop 10/31/16 at 12:59; Status DC Piperacillin Sod/ Tazobactam Sod 3.375 gm/Sodium Chloride 50 ml @ 100 mls/hr ONCE ONCE IV Last administered on 10/31/16 11:38; Start 10/31/16 at 11:45; Stop 10/31/16 at 12:14; Status DC Levofloxacin/ Dextrose 150 ml @ 100 mls/hr Q48H IV ; Start 11/02/16 at 10:00 Piperacillin Sod/ Tazobactam Sod 3.375 gm/Sodium Chloride 50 ml @ 100 mls/hr Q6HRS IV Last administered on 11/01/16 11:59; Start 10/31/16 at 18:00 Acetaminophen (Tylenol) 650 mg PRN Q6HRS PRN PO FEVER; Start 10/31/16 at 15:15 Ondansetron HCl (Zofran) 4 mg PRN Q6HRS PRN IV NAUSEA/VOMITING; Start 10/31/16 at 15:15 Morphine Sulfate 2 mg PRN Q2HR PRN IV PAIN; Start 10/31/16 at 15:15 Tramadol HCl (Ultram) 50 mg PRN Q6HRS PRN PO PAIN; Start 10/31/16 at 15:15 Hydralazine HCl (Apresoline) 10 mg PRN Q4HRS PRN IVP ELEVATED BP, SEE COMMENTS ; Start 10/31/16 at 15:15 Docusate Sodium (Colace) 100 mg PRN DAILY PRN PO CONSTIPATION; Start 10/31/16 at 15:15 Albuterol/ Ipratropium (Duoneb) 3 ml RTQID NEB Last administered on 11/01/16 11:44; Start 10/31/16 at 16:00 Albuterol Sulfate (Ventolin Neb Soln) 2.5 mg PRN Q4HRS PRN NEB SHORTNESS OF BREATH; Start 10/31/16 at 15:15 Heparin Sodium (Porcine) (Heparin Sq) 5,000 unit Q8HRS SQ Last administered on 11/01/16 07:08; Start 10/31/16 at 22:00 Famotidine (Pepcid) 20 mg QHS IVP Last administered on 10/31/16 21:48; Start 10/31/16 at 21:00 Vancomycin HCl 2 gm/Sodium Chloride 500 ml @ 250 mls/hr Q24H IV ; Start at 14:00 Vancomycin HCl 1 each 1X ONCE MC ; Start 11/02/16 at 13:30; Stop 11/02/16 at 13 :31 Sodium Chloride 1,000 ml @ 80 mls/hr [id number] IV Last administered on 08:57; Start 10/31/16 at 16:15 Sodium Chloride 1,000 ml @ 1,000 mls/hr 1X ONCE IV Last administered on 18:04; Start 10/31/16 at 14:00; Stop 10/31/16 at 17:23; Status DC Sodium Chloride 500 ml @ 500 mls/hr 1X ONCE IV Last administered on 17:30; Start 10/31/16 at 17:30; Stop 10/31/16 at 18:29; Status DC Fentanyl Citrate 30 ml @ 0 mls/hr CONT PRN IV PROTOCOL; Start 10/31/16 at 18:30 Propofol 100 ml @ 0 mls/hr CONT PRN IV PER PROTOCOL Last administered on 19:00; Start 10/31/16 at 18:30 Chlorhexidine Gluconate (Peridex) 15 ml BID MM Last administered on 11/01/16 10:27; Start 10/31/16 at 21:00 Artificial Tears (Artificial Tears) 1 drop PRN Q1HR PRN OU DRY EYE; Start 10/31 at 18:30 Midazolam HCl 100 ml @ 0 mls/hr CONT PRN IV PER PROTOCOL Last administered on 08:41; Start 10/31/16 at 18:30 Succinylcholine Chloride (Anectine) 200 mg STK-MED ONCE .ROUTE ; Start 10/31/16 at 18:43; Stop 10/31/16 at 18:44; Status DC Midazolam HCl (Versed) 5 mg STK-MED ONCE .ROUTE ; Start 10/31/16 at 18:45; Stop 10/31/16 at 18:46; Status DC Midazolam HCl (Versed) 5 mg 1X ONCE IV Last administered on 10/31/16t 19:30; Start 10/31/16 at 19:30; Stop 10/31/16 at 19:31; Status DC Succinylcholine Chloride (Anectine) 200 mg STK-MED ONCE .ROUTE ; Start 10/31/16 at 18:45; Stop 11/01/16 at 08:13; Status DC Active Scripts Active Reported Trazodone Hcl 100 Mg Tablet 100 Mg PO HS Polyethylene Glycol 3350 255 Gm Powder 17 Gm PO DAILY Olanzapine 20 Mg Tablet 2 Tab PO QHS Montelukast Sodium Tablet (Montelukast Sodium) 10 Mg Tablet 10 Mg PO HS Meloxicam 15 Mg Tablet 1 Tab PO DAILY Losartan Potassium 50 Mg Tablet 50 Mg PO DAILY Lorazepam 1 Mg Tablet 1 Mg PO HS Lasix (Furosemide) 40 Mg Tablet 40 Mg PO PRN DAILY Hydrochlorothiazide Tablet (Hydrochlorothiazide) 25 Mg Tablet 25 Mg PO DAILY Folic Acid 1 Mg Tablet 1 Mg PO DAILY Fluoxetine Hcl 40 Mg Capsule 40 Mg PO DAILY Famotidine 20 Mg Tablet 20 Mg PO BID Duoneb 0.5-3(2.5) Mg/3 Ml (Albuterol/Ipratropium) 3 Ml Ampul.neb 3 Ml NEB QID Docusate Sodium 100 Mg Capsule 1 Cap PO BID Clonidine Hcl 0.1 Mg Tablet 0.1 Mg PO QID Cetirizine Hcl 10 Mg Tablet 1 Tab PO DAILY Vitals/I & O Vital Sign - Last 24 Hours 10/31/16 10/31/16 10/31/16 10/31/16 12:30 13:15 14:00 15:00 Temp 100.4 100.4 Pulse 102 98 Resp 20 22 B/P (MAP) 107/57 (74) 91/61 (71) Pulse Ox 90 88 90 O2 Delivery BiPAP/CPAP BiPAP/CPAP Bi-pap 10/31/16 10/31/16 10/31/16 10/31/16 15:00 15:15 16:00 17:00 Pulse 91 90 99 Resp 20 20 20 B/P (MAP) 90/55 (67) 112/53 (72) 87/59 (68) Pulse Ox 90 90 94 89 O2 Delivery BiPAP/CPAP BiPAP/CPAP BiPAP/CPAP BiPAP/CPAP 10/31/16 10/31/16 10/31/16 10/31/16 18:00 18:00 18:55 19:00 Pulse 99 98 Resp 20 24 B/P (MAP) 95/62 (73) 123/63 (83) Pulse Ox 99 98 96 94 O2 Delivery BiPAP/CPAP BiPAP/CPAP Ventilator Ventilator 10/31/16 10/31/16 10/31/16 10/31/16 19:35 20:00 20:00 20:30 Temp 98.8 98.8 Pulse 72 72 Resp 20 20 B/P (MAP) 74/53 (60) 84/53 (63) Pulse Ox 92 95 95 O2 Delivery Ventilator Mechanical Ventilator Ventilator Ventilator 10/31/16 10/31/16 10/31/16 10/31/16 21:00 22:00 23:00 23:05 Pulse 67 68 66 Resp 20 16 16 B/P (MAP) 91/59 (70) 93/60 (71) 97/60 (72) Pulse Ox 95 94 94 94 O2 Delivery Ventilator Ventilator Ventilator Ventilator 10/31/16 10/31/16 11/01/16 11/01/16 23:59 23:59 01:00 01:07 Temp 99.3 99.3 Pulse 68 67 Resp 16 16 B/P (MAP) 99/62 (74) 87/57 (67) Pulse Ox 94 93 93 O2 Delivery Mechanical Ventilator Ventilator Ventilator Ventilator 11/01/16 11/01/16 11/01/16 11/01/16 02:00 03:00 03:19 04:00 Pulse 67 66 Resp 16 16 B/P (MAP) 92/61 (71) 87/60 (69) Pulse Ox 93 93 93 O2 Delivery Ventilator Ventilator Ventilator Mechanical Ventilator 11/01/16 11/01/16 11/01/16 11/01/16 04:00 05:00 05:35 06:00 Temp 99.1 99.1 Pulse 65 63 63 Resp 16 16 16 B/P (MAP) 85/56 (66) 93/60 (71) 118/72 (87) Pulse Ox 95 96 95 95 O2 Delivery Ventilator Ventilator Ventilator Ventilator 11/01/16 11/01/16 11/01/16 11/01/16 07:00 08:25 10:04 11:41 Pulse 62 Resp 16 B/P (MAP) 114/71 (85) Pulse Ox 95 97 95 95 O2 Delivery Ventilator Ventilator Ventilator Ventilator Intake and Output 10/31/16 10/31/16 11/01/16 15:00 23:00 07:00 Intake Total 50 ml 2013 ml 1004 ml Output Total 1920 ml 1020 ml Balance 50 ml 93 ml -16 ml SARA ANDERSON MD Nov 01, 2016 12:32
[2016-11-01] MEDS ORDERED: FUROSEMIDE 20 MG/2 ML VIAL. IVP ONE (13:30)
[2016-11-01] MEDS: VANCOMYCIN 2 GM in IV NORMAL SALINE 500ML BAG 500 ML IV SCH (13:49)
[2016-11-01] MEDS: MORPHINE SULFATE 2 MG/ML DISP.SYRIN. IV PRN (15:48)
[2016-11-01] MEDS: ACETAMINOPHEN 325 MG TABLET. PO PRN ×2 (16:30→20:26)
[2016-11-01] MEDS: FAMOTIDINE 20 MG/2 ML VIAL IVP SCH (21:26)
[2016-11-01] MEDS ORDERED: IV NORMAL SALINE 500ML BAG 500 ML IV ONE (23:15)
[2016-11-02] VITALS (24 sets, daily range): BP systolic 78–133; BP diastolic 43–74
[2016-11-02] MEDS: PIPERACILLIN/TAZOBACTAM 3.375 GM in IV NORMAL SALINE 50ML 50 ML IV SCH ×2 (00:07→05:44)
[2016-11-02] MEDS: IV NORMAL SALINE 1000ML BAG 1,000 ML IV SCH ×2 (04:07→20:10)
[2016-11-02] MEDS: HEPARIN PF for SUB-Q USE 5,000 UNIT/0.5 ML VIAL. SQ SCH ×3 (05:47→21:57)
[2016-11-02 05:48] LABS: BASO % 0 % (0-3); EOS % 0 % (0-3); HEMATOCRIT 36.7 % (36.0-47.0); HEMOGLOBIN 11.4 g/dL (12.0-15.5); LYMPH # 1.1 x10^3/uL (1.0-4.8); LYMPH % 9 % (24-48); MEAN CORPUSCULAR HEMOGLOBIN 28 pg (25-35); MEAN CORPUSCULAR HGB CONC 31 g/dL (31-37); MEAN CORPUSCULAR VOLUME 90 fL (79-100); MONO % 7 % (0-9); NEUT % 83 % (31-73); PLATELET COUNT 244 x10^3/uL (140-400); RED BLOOD COUNT 4.07 x10^6/uL (3.50-5.40); RED CELL DISTRIBUTION WIDTH 15.7 % (11.5-14.5); WHITE BLOOD COUNT 11.5 x10^3/uL (4.0-11.0)
[2016-11-02 06:01] LABS: CALCIUM 7.7 mg/dL (8.5-10.1); CREATININE 1.5 mg/dL (0.6-1.0); GFR 42.4; POTASSIUM 3.7 mmol/L (3.5-5.1)
[2016-11-02] MEDS: IPRATRPIUM/ALBUTEROL 0.5/2.5MG 3 ML NEBU. NEB SCH ×4 (07:33→19:33)
[2016-11-02] MEDS: CHLORHEXIDINE 0.12% 15 ML MOUTHWASH. MM SCH ×2 (07:39→20:15)
[2016-11-02] MEDS: ACETAMINOPHEN 650 MG/20.3 ML SOLUTION. PEG PRN ×2 (07:52→14:46)
--- NOTE | 2016-11-02 07:59 | PDOC2 ---
IM Consult Referring physician Dr Ibarra for fever, pneumonia Date of Admission DATE: 11/02/16 TIME: 07:50 Chief Complaint Chief Complaint Patient is a 61 year old -[place] female who presents with respiratory distress. According EMS and they called her O2 sats were in the 30% range , tried BiPAP and got her up to 90% but she still breathing 40 times a minute. Upon arrival to the ER her breathing was done at 20 times a minute on BiPAP. Also c/o chest pain, subsequent intubation on vent. Running fever, leukocytosis. Unable to provide history now. Vanc and zosyn and levaquin started. Problems: Past Medical History Cardiovascular: CHF, HTN Pulmonary: Asthma GI: Constipation, GERD Psych: Depression, Schizophrenia Musculoskeletal: Osteoarthritis ENT: Allergic Rhinitis Past Surgical History Past Surgical History: Other (Unknown) Past Family History Family History: Family History Unknown Past Social History PSH unable to get Review of Symptoms Review of Symptoms unable to do Medications Current Medications Acetaminophen (Tylenol) 650 mg PRN Q6HRS PRN PEG MILD PAIN / TEMP; Start at 07:45; Status UNV Furosemide (Lasix) 20 mg 1X ONCE IVP Last administered on 11/01/16 13:48; Start 11/01/16 at 13:30; Stop 11/01/16 at 13:31; Status DC Levofloxacin/ Dextrose 150 ml @ 100 mls/hr Q48H IV ; Start 11/02/16 at 10:00 Sodium Chloride 500 ml @ 500 mls/hr 1X ONCE IV Last administered on 23:09; Start 11/01/16 at 23:15; Stop 11/02/16 at 00:14; Status DC Vancomycin HCl 1 each 1X ONCE MC ; Start 11/02/16 at 13:30; Stop 11/02/16 at 13 :31 Vancomycin HCl 2 gm/Sodium Chloride 500 ml @ 250 mls/hr Q24H IV Last administered on 11/01/16 13:49; Start 11/01/16 at 14:00 Allergy Allergies Coded Allergies Type Severity Reaction Last Updated Verified haloperidol Allergy Intermediate 11/01/16 Yes tetanus immune globulin Allergy Intermediate 11/01/16 Yes Physical Exam Physical Exam General appearance - sedated orally intubated on vent Mental Status - sedated Head - normal, heent nad Chest - clear to auscultation, no wheezes, rales or rhonchi, symmetric air entry Heart - S1 and S2 normal Abdomen - soft, nontender, nondistended, no masses or organomegaly Neurological - sedated on vent Musculoskeletal - no muscular tenderness noted Extremities - no pedal edema Skin - warm and dry Labs Laboratory Tests Test 10/31/16 10:31 10/31/16 11:00 10/31/16 11:08 10/31/16 12:55 White Blood Count 14.8 x10^3/uL (4.0-11.0) Red Blood Count 4.29 x10^6/uL (3.50-5.40) Hemoglobin 12.3 g/dL (12.0-15.5) Hematocrit 38.1 % (36.0-47.0) Mean Corpuscular Volume 89 fL (79-100) Mean Corpuscular Hemoglobin 29 pg (25-35) Mean Corpuscular Hemoglobin Concent 32 g/dL (31-37) Red Cell Distribution Width 15.4 % (11.5-14.5) Platelet Count 240 x10^3/uL (140-400) Neutrophils (%) (Auto) 76 % (31-73) Lymphocytes (%) (Auto) 13 % (24-48) Monocytes (%) (Auto) 10 % (0-9) Eosinophils (%) (Auto) 0 % (0-3) Basophils (%) (Auto) 1 % (0-3) Neutrophils # (Auto) 11.3 x10^3uL (1.8-7.7) Lymphocytes # (Auto) 2.0 x10^3/uL (1.0-4.8) Monocytes # (Auto) 1.4 x10^3/uL (0.0-1.1) Eosinophils # (Auto) 0.0 x10^3/uL (0.0-0.7) Basophils # (Auto) 0.1 x10^3/uL (0.0-0.2) Prothrombin Time 13.1 SEC (11.7-14.0) Prothromb Time International Ratio 1.1 (0.8-1.1) Lactic Acid Level 1.2 mmol/L (0.4-2.0) O2 Saturation 88 % (92-99) 91 % (92-99) Arterial Blood pH 7.31 (7.35-7.45) 7.36 (7.35-7.45) Arterial Blood pCO2 at Patient Temp 59 mmHg (35-46) 49 mmHg (35-46) Arterial Blood pO2 at Patient Temp 64 mmHg (65-108) 67 mmHg (65-108) Arterial Blood HCO3 29 mmol/L (21-28) 27 mmol/L (21-28) Arterial Blood Base Excess 2 mmol/L (-3-3) 1 mmol/L (-3-3) FiO2 50 50.0 Sodium Level 137 mmol/L (136-145) Potassium Level 3.6 mmol/L (3.5-5.1) Chloride Level 98 mmol/L (98-107) Carbon Dioxide Level 30 mmol/L (21-32) Anion Gap 9 (6-14) Blood Urea Nitrogen 33 mg/dL (7-20) Creatinine 2.1 mg/dL (0.6-1.0) Estimated GFR (Cockcroft-Gault) 28.8 Glucose Level 125 mg/dL (70-99) Calcium Level 8.5 mg/dL (8.5-10.1) Magnesium Level 2.2 mg/dL (1.8-2.4) Total Bilirubin 0.4 mg/dL (0.2-1.0) Direct Bilirubin 0.2 mg/dL (0.0-0.2) Aspartate Amino Transf (AST/SGOT) 65 U/L (15-37) Alanine Aminotransferase (ALT/SGPT) 32 U/L (14-59) Alkaline Phosphatase 137 U/L (46-116) Creatine Kinase 2474 U/L (26-192) Creatine Kinase MB (Mass) 10.2 ng/mL (0.0-3.6) Creatine Kinase MB Relative Index 0.4 % (0-4) Troponin I Quantitative 0.035 ng/mL (0.000-0.055) SY-Nay-W-Type Natriuretic Peptide 201 pg/mL (0-124) Total Protein 8.1 g/dL (6.4-8.2) Albumin 3.6 g/dL (3.4-5.0) Lipase 36 U/L (73-393) Thyroid Stimulating Hormone (TSH) 1.216 uIU/mL (0.358-3.74) Test 10/31/16 13:30 10/31/16 13:50 10/31/16 14:45 10/31/16 15:15 Urine Collection Type U cath Urine Color Daisy Urine Clarity Cloudy Urine pH 5.0 Urine Specific [place] 1.015 Urine Protein 30 mg/dL (NEG-TRACE) Urine Glucose (UA) Negative mg/dL (NEG) Urine Ketones (Stick) Negative mg/dL (NEG) Urine Blood Negative (NEG) Urine Nitrite Negative (NEG) Urine Bilirubin Small (NEG) Urine Urobilinogen Dipstick 1.0 mg/dL (0.2 mg/dL) Urine Leukocyte Esterase Trace (NEG) Urine RBC 0 /HPF (0-2) Urine WBC 5-10 /HPF (0-4) Urine Bacteria Many /HPF (0-FEW) Urine Hyaline Casts Many /HPF Urine Mucus Mod /LPF Urine Opiates Screen Neg (NEG) Urine Methadone Screen Neg (NEG) Urine Barbiturates Neg (NEG) Urine Phencyclidine Screen Neg (NEG) Urine Amphetamine/Methamphetamine Neg (NEG) Urine Benzodiazepines Screen Neg (NEG) Urine Cocaine Screen Neg (NEG) Urine Cannabinoids Screen Neg (NEG) Urine Ethyl Alcohol Neg (NEG) Nasal Screen MRSA (PCR) Negative (Negative) Lactic Acid Level 0.8 mmol/L (0.4-2.0) O2 Saturation 88 % (92-99) Arterial Blood pH 7.27 (7.35-7.45) Arterial Blood pCO2 at Patient Temp 54 mmHg (35-46) Arterial Blood pO2 at Patient Temp 64 mmHg (65-108) Arterial Blood HCO3 25 mmol/L (21-28) Arterial Blood Base Excess -3 mmol/L (-3-3) FiO2 70 Test 10/31/16 18:00 10/31/16 20:04 10/31/16 20:25 11/01/16 05:00 O2 Saturation 99 % (92-99) 95 % (92-99) Arterial Blood pH 7.18 (7.35-7.45) 7.30 (7.35-7.45) Arterial Blood pCO2 at Patient Temp 70 mmHg (35-46) 51 mmHg (35-46) Arterial Blood pO2 at Patient Temp 185 mmHg (65-108) 88 mmHg (65-108) Arterial Blood HCO3 25 mmol/L (21-28) 24 mmol/L (21-28) Arterial Blood Base Excess -4 mmol/L (-3-3) -3 mmol/L (-3-3) Oxyhemoglobin 97.5 % Methemoglobin 0.4 % (0.0-1.9) Carbon Monoxide, Quantitative 0.9 % (0.0-1.9) FiO2 100 100 Troponin I Quantitative 0.072 ng/mL (0.000-0.055) 0.045 ng/mL (0.000-0.055) White Blood Count 12.3 x10^3/uL (4.0-11.0) Red Blood Count 4.07 x10^6/uL (3.50-5.40) Hemoglobin 11.7 g/dL (12.0-15.5) Hematocrit 36.3 % (36.0-47.0) Mean Corpuscular Volume 89 fL (79-100) Mean Corpuscular Hemoglobin 29 pg (25-35) Mean Corpuscular Hemoglobin Concent 32 g/dL (31-37) Red Cell Distribution Width 15.7 % (11.5-14.5) Platelet Count 240 x10^3/uL (140-400) Neutrophils (%) (Auto) 83 % (31-73) Lymphocytes (%) (Auto) 8 % (24-48) Monocytes (%) (Auto) 8 % (0-9) Eosinophils (%) (Auto) 0 % (0-3) Basophils (%) (Auto) 0 % (0-3) Neutrophils # (Auto) 10.2 x10^3uL (1.8-7.7) Lymphocytes # (Auto) 1.0 x10^3/uL (1.0-4.8) Monocytes # (Auto) 1.0 x10^3/uL (0.0-1.1) Eosinophils # (Auto) 0.0 x10^3/uL (0.0-0.7) Basophils # (Auto) 0.0 x10^3/uL (0.0-0.2) Sodium Level 145 mmol/L (136-145) Potassium Level 4.1 mmol/L (3.5-5.1) Chloride Level 106 mmol/L (98-107) Carbon Dioxide Level 27 mmol/L (21-32) Anion Gap 12 (6-14) Blood Urea Nitrogen 36 mg/dL (7-20) Creatinine 1.6 mg/dL (0.6-1.0) Estimated GFR (Cockcroft-Gault) 39.4 Glucose Level 144 mg/dL (70-99) Calcium Level 6.9 mg/dL (8.5-10.1) Creatine Kinase 2405 U/L (26-192) Creatine Kinase MB (Mass) 8.2 ng/mL (0.0-3.6) Creatine Kinase MB Relative Index 0.3 % (0-4) Triglycerides Level 138 mg/dL (0-150) Cholesterol Level 144 mg/dL (0-200) LDL Cholesterol, Calculated 92 mg/dL (0-100) VLDL Cholesterol, Calculated 28 mg/dL (0-40) Non-HDL Cholesterol Calculated 120 mg/dL (0-129) HDL Cholesterol 24 mg/dL (40-60) Cholesterol/HDL Ratio 6.0 Test 11/01/16 08:00 11/02/16 00:06 11/02/16 05:15 11/02/16 05:17 O2 Saturation 88 % (92-99) Arterial Blood pH 7.34 (7.35-7.45) Arterial Blood pCO2 at Patient Temp 52 mmHg (35-46) Arterial Blood pO2 at Patient Temp 62 mmHg (65-108) Arterial Blood HCO3 28 mmol/L (21-28) Arterial Blood Base Excess 1 mmol/L (-3-3) FiO2 70 Glucose (Fingerstick) 133 mg/dL (70-99) 119 mg/dL (70-99) White Blood Count 11.5 x10^3/uL (4.0-11.0) Red Blood Count 4.07 x10^6/uL (3.50-5.40) Hemoglobin 11.4 g/dL (12.0-15.5) Hematocrit 36.7 % (36.0-47.0) Mean Corpuscular Volume 90 fL (79-100) Mean Corpuscular Hemoglobin 28 pg (25-35) Mean Corpuscular Hemoglobin Concent 31 g/dL (31-37) Red Cell Distribution Width 15.7 % (11.5-14.5) Platelet Count 244 x10^3/uL (140-400) Neutrophils (%) (Auto) 83 % (31-73) Lymphocytes (%) (Auto) 9 % (24-48) Monocytes (%) (Auto) 7 % (0-9) Eosinophils (%) (Auto) 0 % (0-3) Basophils (%) (Auto) 0 % (0-3) Neutrophils # (Auto) 9.6 x10^3uL (1.8-7.7) Lymphocytes # (Auto) 1.1 x10^3/uL (1.0-4.8) Monocytes # (Auto) 0.8 x10^3/uL (0.0-1.1) Eosinophils # (Auto) 0.0 x10^3/uL (0.0-0.7) Basophils # (Auto) 0.0 x10^3/uL (0.0-0.2) Test 11/02/16 05:25 Sodium Level 145 mmol/L (136-145) Potassium Level 3.7 mmol/L (3.5-5.1) Chloride Level 107 mmol/L (98-107) Carbon Dioxide Level 29 mmol/L (21-32) Anion Gap 9 (6-14) Blood Urea Nitrogen 34 mg/dL (7-20) Creatinine 1.5 mg/dL (0.6-1.0) Estimated GFR (Cockcroft-Gault) 42.4 Glucose Level 122 mg/dL (70-99) Calcium Level 7.7 mg/dL (8.5-10.1) Laboratory Tests Test 11/01/16 08:00 11/02/16 00:06 11/02/16 05:15 11/02/16 05:17 O2 Saturation 88 % (92-99) Arterial Blood pH 7.34 (7.35-7.45) Arterial Blood pCO2 at Patient Temp 52 mmHg (35-46) Arterial Blood pO2 at Patient Temp 62 mmHg (65-108) Arterial Blood HCO3 28 mmol/L (21-28) Arterial Blood Base Excess 1 mmol/L (-3-3) FiO2 70 Glucose (Fingerstick) 133 mg/dL (70-99) 119 mg/dL (70-99) White Blood Count 11.5 x10^3/uL (4.0-11.0) Red Blood Count 4.07 x10^6/uL (3.50-5.40) Hemoglobin 11.4 g/dL (12.0-15.5) Hematocrit 36.7 % (36.0-47.0) Mean Corpuscular Volume 90 fL (79-100) Mean Corpuscular Hemoglobin 28 pg (25-35) Mean Corpuscular Hemoglobin Concent 31 g/dL (31-37) Red Cell Distribution Width 15.7 % (11.5-14.5) Platelet Count 244 x10^3/uL (140-400) Neutrophils (%) (Auto) 83 % (31-73) Lymphocytes (%) (Auto) 9 % (24-48) Monocytes (%) (Auto) 7 % (0-9) Eosinophils (%) (Auto) 0 % (0-3) Basophils (%) (Auto) 0 % (0-3) Neutrophils # (Auto) 9.6 x10^3uL (1.8-7.7) Lymphocytes # (Auto) 1.1 x10^3/uL (1.0-4.8) Monocytes # (Auto) 0.8 x10^3/uL (0.0-1.1) Eosinophils # (Auto) 0.0 x10^3/uL (0.0-0.7) Basophils # (Auto) 0.0 x10^3/uL (0.0-0.2) Test 11/02/16 05:25 Sodium Level 145 mmol/L (136-145) Potassium Level 3.7 mmol/L (3.5-5.1) Chloride Level 107 mmol/L (98-107) Carbon Dioxide Level 29 mmol/L (21-32) Anion Gap 9 (6-14) Blood Urea Nitrogen 34 mg/dL (7-20) Creatinine 1.5 mg/dL (0.6-1.0) Estimated GFR (Cockcroft-Gault) 42.4 Glucose Level 122 mg/dL (70-99) Calcium Level 7.7 mg/dL (8.5-10.1) X ray reviewed Vitals Vital Signs Date Time Temp Pulse Resp B/P (MAP) Pulse Ox O2 Delivery O2 Flow Rate FiO2 11/02/16 07:16 96 Ventilator 11/02/16 07:00 90 20 104/56 (72) 11/02/16 04:00 100.6 100.6 11/01/16 16:18 3.0 Assessment Assessment Fever Leukocytosis Respiratory failure Ángel pulmonary infiltrate, chf vs pneumonia ARF Schizophrenia Plan Plan cont vanc , zosyn and levaquin check cultures and adjust supportive care fluids given CAITY SMITH MD Nov 02, 2016 07:59
[2016-11-02 08:12] LABS: HCO3 ABG 25 mmol/L (21-28); PCO2 ABG 38 mmHg (35-46); PH ABG 7.44 (7.35-7.45); PO2 ABG 72 mmHg (65-108); SAT O2 ABG 94 % (92-99)
[2016-11-02] MEDS: MIDAZOLAM PREMIX 100 ML IV PRN ×2 (08:19→20:07)
[2016-11-02 08:37] LABS: FIO2 ABG 70
[2016-11-02] MEDS: PIPERACILLIN/TAZOBACTAM 4.5 GM in IV NORMAL SALINE 100ML 100 ML IV SCH ×2 (11:50→18:37)
--- NOTE | 2016-11-02 12:22 | RAD ---
Indication respiratory failure. A single view of the chest was obtained and is compared to a study one day earlier. There is unchanged cardiomegaly. There are patchy pulmonary infiltrates similar to slightly worse than on the previous exam. Findings likely reflect congestive heart failure although an infectious component is not entirely excluded. There is some new volume loss in the left lower lobe likely reflecting atelectasis. Endotracheal tube is appropriately positioned above the rudy. Nasogastric tube has its tip beyond the mid body of the stomach. IMPRESSION: Stable cardiomegaly. Persistent infiltrates likely reflecting congestive heart failure slight stable to slightly worse. Appropriately positioned endotracheal and nasogastric tubes. Slight volume loss at the left lung base likely reflecting atelectasis
--- NOTE | 2016-11-02 12:55 | PDOC ---
PROGRESS NOTES Chief Complaint Chief Complaint Acute hypoxic and hypercapnic resp failure with HAP, Failed on bipap and intubation 10/31 Fever and leukocytosis Healthcare associated pneumonia possible gram-negative rods Copd morbid obesity ckd with jerrod, vasomotor HX of schizophrenia HTN tobaccoism Elevated CPK PLAN: Continue to have fevers this morning, continue IV Zosyn and vancomycin and the Levaquin. Vancomycin renal dosing, Slightly hypotensive, appreciate cardiology input, do not recommend any Lasix at this time. Continue IV hydration The patient did not respond to IV hydration consider Levophed. On mechanical ventilation, on Versed and fentanyl for sedation and pain DVT prophylaxis with Lovenox Echo report reviewed no acute CHF Chest x-ray reviewed Labs reviewed Discussed with RN Periodic nebulizations as per respiratory therapy. Monitor intake and output Monitor CPK Prognosis guarded, condition critical. Critical care time 31 minutes. History of Present Illness History of Present Illness Intake and output noted Had a bowel movement yesterday evening Vitals Vitals Vital Signs Date Time Temp Pulse Resp B/P (MAP) Pulse Ox O2 Delivery O2 Flow Rate FiO2 11/02/16 12:00 Mechanical Ventilator 11/02/16 12:00 100.6 96 20 90/48 (62) 92 100.6 11/01/16 16:18 3.0 Physical Exam Physical Exam intubated, sedated Heart: Regular rate (SR), Normal S1, Normal S2, Other (difficult to note due to adventitious sounds and bipap) Lungs: Other (bl coarse bs) Abdomen: Soft, No tenderness, Other (obese, mild distended) Extremities: No cyanosis, Other (1+ bilateral LE pitting edema) Skin: No breakdown, No significant lesion Labs LABS Laboratory Tests Test 11/02/16 00:06 11/02/16 05:15 11/02/16 05:17 11/02/16 05:25 Glucose (Fingerstick) 133 mg/dL (70-99) 119 mg/dL (70-99) White Blood Count 11.5 x10^3/uL (4.0-11.0) Red Blood Count 4.07 x10^6/uL (3.50-5.40) Hemoglobin 11.4 g/dL (12.0-15.5) Hematocrit 36.7 % (36.0-47.0) Mean Corpuscular Volume 90 fL (79-100) Mean Corpuscular Hemoglobin 28 pg (25-35) Mean Corpuscular Hemoglobin Concent 31 g/dL (31-37) Red Cell Distribution Width 15.7 % (11.5-14.5) Platelet Count 244 x10^3/uL (140-400) Neutrophils (%) (Auto) 83 % (31-73) Lymphocytes (%) (Auto) 9 % (24-48) Monocytes (%) (Auto) 7 % (0-9) Eosinophils (%) (Auto) 0 % (0-3) Basophils (%) (Auto) 0 % (0-3) Neutrophils # (Auto) 9.6 x10^3uL (1.8-7.7) Lymphocytes # (Auto) 1.1 x10^3/uL (1.0-4.8) Monocytes # (Auto) 0.8 x10^3/uL (0.0-1.1) Eosinophils # (Auto) 0.0 x10^3/uL (0.0-0.7) Basophils # (Auto) 0.0 x10^3/uL (0.0-0.2) Sodium Level 145 mmol/L (136-145) Potassium Level 3.7 mmol/L (3.5-5.1) Chloride Level 107 mmol/L (98-107) Carbon Dioxide Level 29 mmol/L (21-32) Anion Gap 9 (6-14) Blood Urea Nitrogen 34 mg/dL (7-20) Creatinine 1.5 mg/dL (0.6-1.0) Estimated GFR (Cockcroft-Gault) 42.4 Glucose Level 122 mg/dL (70-99) Calcium Level 7.7 mg/dL (8.5-10.1) Creatine Kinase 1452 U/L (26-192) Test 11/02/16 08:00 11/02/16 11:45 O2 Saturation 94 % (92-99) Arterial Blood pH 7.44 (7.35-7.45) Arterial Blood pCO2 at Patient Temp 38 mmHg (35-46) Arterial Blood pO2 at Patient Temp 72 mmHg (65-108) Arterial Blood HCO3 25 mmol/L (21-28) Arterial Blood Base Excess 1 mmol/L (-3-3) FiO2 70 Glucose (Fingerstick) 147 mg/dL (70-99) Comment Review of Relevant I have reviewed the following items asif (where applicable) has been applied. Labs Laboratory Tests Test 10/31/16 12:55 10/31/16 13:30 10/31/16 13:50 10/31/16 14:45 O2 Saturation 91 % (92-99) Arterial Blood pH 7.36 (7.35-7.45) Arterial Blood pCO2 at Patient Temp 49 mmHg (35-46) Arterial Blood pO2 at Patient Temp 67 mmHg (65-108) Arterial Blood HCO3 27 mmol/L (21-28) Arterial Blood Base Excess 1 mmol/L (-3-3) FiO2 50.0 Urine Collection Type U cath Urine Color Daisy Urine Clarity Cloudy Urine pH 5.0 Urine Specific [place] 1.015 Urine Protein 30 mg/dL (NEG-TRACE) Urine Glucose (UA) Negative mg/dL (NEG) Urine Ketones (Stick) Negative mg/dL (NEG) Urine Blood Negative (NEG) Urine Nitrite Negative (NEG) Urine Bilirubin Small (NEG) Urine Urobilinogen Dipstick 1.0 mg/dL (0.2 mg/dL) Urine Leukocyte Esterase Trace (NEG) Urine RBC 0 /HPF (0-2) Urine WBC 5-10 /HPF (0-4) Urine Bacteria Many /HPF (0-FEW) Urine Hyaline Casts Many /HPF Urine Mucus Mod /LPF Urine Opiates Screen Neg (NEG) Urine Methadone Screen Neg (NEG) Urine Barbiturates Neg (NEG) Urine Phencyclidine Screen Neg (NEG) Urine Amphetamine/Methamphetamine Neg (NEG) Urine Benzodiazepines Screen Neg (NEG) Urine Cocaine Screen Neg (NEG) Urine Cannabinoids Screen Neg (NEG) Urine Ethyl Alcohol Neg (NEG) Nasal Screen MRSA (PCR) Negative (Negative) Lactic Acid Level 0.8 mmol/L (0.4-2.0) Test 10/31/16 15:15 10/31/16 18:00 10/31/16 20:04 10/31/16 20:25 O2 Saturation 88 % (92-99) 99 % (92-99) 95 % (92-99) Arterial Blood pH 7.27 (7.35-7.45) 7.18 (7.35-7.45) 7.30 (7.35-7.45) Arterial Blood pCO2 at Patient Temp 54 mmHg (35-46) 70 mmHg (35-46) 51 mmHg (35-46) Arterial Blood pO2 at Patient Temp 64 mmHg (65-108) 185 mmHg (65-108) 88 mmHg (65-108) Arterial Blood HCO3 25 mmol/L (21-28) 25 mmol/L (21-28) 24 mmol/L (21-28) Arterial Blood Base Excess -3 mmol/L (-3-3) -4 mmol/L (-3-3) -3 mmol/L (-3-3) FiO2 70 100 100 Oxyhemoglobin 97.5 % Methemoglobin 0.4 % (0.0-1.9) Carbon Monoxide, Quantitative 0.9 % (0.0-1.9) Troponin I Quantitative 0.072 ng/mL (0.000-0.055) Test 11/01/16 05:00 11/01/16 08:00 11/02/16 00:06 11/02/16 05:15 White Blood Count 12.3 x10^3/uL (4.0-11.0) 11.5 x10^3/uL (4.0-11.0) Red Blood Count 4.07 x10^6/uL (3.50-5.40) 4.07 x10^6/uL (3.50-5.40) Hemoglobin 11.7 g/dL (12.0-15.5) 11.4 g/dL (12.0-15.5) Hematocrit 36.3 % (36.0-47.0) 36.7 % (36.0-47.0) Mean Corpuscular Volume 89 fL (79-100) 90 fL (79-100) Mean Corpuscular Hemoglobin 29 pg (25-35) 28 pg (25-35) Mean Corpuscular Hemoglobin Concent 32 g/dL (31-37) 31 g/dL (31-37) Red Cell Distribution Width 15.7 % (11.5-14.5) 15.7 % (11.5-14.5) Platelet Count 240 x10^3/uL (140-400) 244 x10^3/uL (140-400) Neutrophils (%) (Auto) 83 % (31-73) 83 % (31-73) Lymphocytes (%) (Auto) 8 % (24-48) 9 % (24-48) Monocytes (%) (Auto) 8 % (0-9) 7 % (0-9) Eosinophils (%) (Auto) 0 % (0-3) 0 % (0-3) Basophils (%) (Auto) 0 % (0-3) 0 % (0-3) Neutrophils # (Auto) 10.2 x10^3uL (1.8-7.7) 9.6 x10^3uL (1.8-7.7) Lymphocytes # (Auto) 1.0 x10^3/uL (1.0-4.8) 1.1 x10^3/uL (1.0-4.8) Monocytes # (Auto) 1.0 x10^3/uL (0.0-1.1) 0.8 x10^3/uL (0.0-1.1) Eosinophils # (Auto) 0.0 x10^3/uL (0.0-0.7) 0.0 x10^3/uL (0.0-0.7) Basophils # (Auto) 0.0 x10^3/uL (0.0-0.2) 0.0 x10^3/uL (0.0-0.2) Sodium Level 145 mmol/L (136-145) Potassium Level 4.1 mmol/L (3.5-5.1) Chloride Level 106 mmol/L (98-107) Carbon Dioxide Level 27 mmol/L (21-32) Anion Gap 12 (6-14) Blood Urea Nitrogen 36 mg/dL (7-20) Creatinine 1.6 mg/dL (0.6-1.0) Estimated GFR (Cockcroft-Gault) 39.4 Glucose Level 144 mg/dL (70-99) Calcium Level 6.9 mg/dL (8.5-10.1) Creatine Kinase 2405 U/L (26-192) Creatine Kinase MB (Mass) 8.2 ng/mL (0.0-3.6) Creatine Kinase MB Relative Index 0.3 % (0-4) Troponin I Quantitative 0.045 ng/mL (0.000-0.055) Triglycerides Level 138 mg/dL (0-150) Cholesterol Level 144 mg/dL (0-200) LDL Cholesterol, Calculated 92 mg/dL (0-100) VLDL Cholesterol, Calculated 28 mg/dL (0-40) Non-HDL Cholesterol Calculated 120 mg/dL (0-129) HDL Cholesterol 24 mg/dL (40-60) Cholesterol/HDL Ratio 6.0 O2 Saturation 88 % (92-99) Arterial Blood pH 7.34 (7.35-7.45) Arterial Blood pCO2 at Patient Temp 52 mmHg (35-46) Arterial Blood pO2 at Patient Temp 62 mmHg (65-108) Arterial Blood HCO3 28 mmol/L (21-28) Arterial Blood Base Excess 1 mmol/L (-3-3) FiO2 70 Glucose (Fingerstick) 133 mg/dL (70-99) Test 11/02/16 05:17 11/02/16 05:25 11/02/16 08:00 11/02/16 11:45 Glucose (Fingerstick) 119 mg/dL (70-99) 147 mg/dL (70-99) Sodium Level 145 mmol/L (136-145) Potassium Level 3.7 mmol/L (3.5-5.1) Chloride Level 107 mmol/L (98-107) Carbon Dioxide Level 29 mmol/L (21-32) Anion Gap 9 (6-14) Blood Urea Nitrogen 34 mg/dL (7-20) Creatinine 1.5 mg/dL (0.6-1.0) Estimated GFR (Cockcroft-Gault) 42.4 Glucose Level 122 mg/dL (70-99) Calcium Level 7.7 mg/dL (8.5-10.1) Creatine Kinase 1452 U/L (26-192) O2 Saturation 94 % (92-99) Arterial Blood pH 7.44 (7.35-7.45) Arterial Blood pCO2 at Patient Temp 38 mmHg (35-46) Arterial Blood pO2 at Patient Temp 72 mmHg (65-108) Arterial Blood HCO3 25 mmol/L (21-28) Arterial Blood Base Excess 1 mmol/L (-3-3) FiO2 70 Laboratory Tests Test 11/02/16 00:06 11/02/16 05:15 11/02/16 05:17 11/02/16 05:25 Glucose (Fingerstick) 133 mg/dL (70-99) 119 mg/dL (70-99) White Blood Count 11.5 x10^3/uL (4.0-11.0) Red Blood Count 4.07 x10^6/uL (3.50-5.40) Hemoglobin 11.4 g/dL (12.0-15.5) Hematocrit 36.7 % (36.0-47.0) Mean Corpuscular Volume 90 fL (79-100) Mean Corpuscular Hemoglobin 28 pg (25-35) Mean Corpuscular Hemoglobin Concent 31 g/dL (31-37) Red Cell Distribution Width 15.7 % (11.5-14.5) Platelet Count 244 x10^3/uL (140-400) Neutrophils (%) (Auto) 83 % (31-73) Lymphocytes (%) (Auto) 9 % (24-48) Monocytes (%) (Auto) 7 % (0-9) Eosinophils (%) (Auto) 0 % (0-3) Basophils (%) (Auto) 0 % (0-3) Neutrophils # (Auto) 9.6 x10^3uL (1.8-7.7) Lymphocytes # (Auto) 1.1 x10^3/uL (1.0-4.8) Monocytes # (Auto) 0.8 x10^3/uL (0.0-1.1) Eosinophils # (Auto) 0.0 x10^3/uL (0.0-0.7) Basophils # (Auto) 0.0 x10^3/uL (0.0-0.2) Sodium Level 145 mmol/L (136-145) Potassium Level 3.7 mmol/L (3.5-5.1) Chloride Level 107 mmol/L (98-107) Carbon Dioxide Level 29 mmol/L (21-32) Anion Gap 9 (6-14) Blood Urea Nitrogen 34 mg/dL (7-20) Creatinine 1.5 mg/dL (0.6-1.0) Estimated GFR (Cockcroft-Gault) 42.4 Glucose Level 122 mg/dL (70-99) Calcium Level 7.7 mg/dL (8.5-10.1) Creatine Kinase 1452 U/L (26-192) Test 11/02/16 08:00 11/02/16 11:45 O2 Saturation 94 % (92-99) Arterial Blood pH 7.44 (7.35-7.45) Arterial Blood pCO2 at Patient Temp 38 mmHg (35-46) Arterial Blood pO2 at Patient Temp 72 mmHg (65-108) Arterial Blood HCO3 25 mmol/L (21-28) Arterial Blood Base Excess 1 mmol/L (-3-3) FiO2 70 Glucose (Fingerstick) 147 mg/dL (70-99) Microbiology 10/31/16 Blood Culture - Preliminary, Resulted NO GROWTH AFTER 2 DAYS 11/01/16 Gram Stain - Final, Complete 10/31/16 Urine Culture - Preliminary, Resulted 10/31/16 Urine Culture Result 1 (ISAIAS) - Preliminary, Resulted Medications Current Medications Methylprednisolone Sodium Succinate (SOLU-Medrol 125MG VIAL) 125 mg 1X ONCE IV Last administered on 10/31/16 11:18; Start 10/31/16 at 11:00; Stop 10/31/16 at 11:01; Status DC Albuterol/ Ipratropium (Duoneb) 3 ml 1X ONCE NEB Last administered on 11:00; Start 10/31/16 at 11:00; Stop 10/31/16 at 11:01; Status DC Furosemide (Lasix) 40 mg 1X ONCE IVP Last administered on 10/31/16 11:17; Start 10/31/16 at 11:15; Stop 10/31/16 at 11:16; Status DC Vancomycin HCl (Vanco Per Pharmacy) 1 each PRN DAILY PRN MC SEE COMMENTS Last administered on 11/01/16 09:41; Start 10/31/16 at 11:30 Piperacillin Sod/ Tazobactam Sod (Zosyn Per Pharmacy) 1 each PRN DAILY PRN MC SEE COMMENTS; Start 10/31/16 at 11:30; Stop 11/02/16 at 08:44; Status DC Levofloxacin/ Dextrose (Levaquin Per Pharmacy) 1 each PRN DAILY PRN MC SEE COMMENTS; Start 10/31/16 at 11:30; Stop 10/31/16 at 12:57; Status DC Vancomycin HCl 2 gm/Sodium Chloride 500 ml @ 250 mls/hr 1X ONCE IV Last administered on 10/31/16 14:30; Start 10/31/16 at 11:30; Stop 10/31/16 at 13:29 ; Status DC Levofloxacin/ Dextrose 150 ml @ 100 mls/hr ONCE ONCE IV Last administered on 10/31/16 12:45; Start 10/31/16 at 11:30; Stop 10/31/16 at 12:59; Status DC Piperacillin Sod/ Tazobactam Sod 3.375 gm/Sodium Chloride 50 ml @ 100 mls/hr ONCE ONCE IV Last administered on 10/31/16 11:38; Start 10/31/16 at 11:45; Stop 10/31/16 at 12:14; Status DC Levofloxacin/ Dextrose 150 ml @ 100 mls/hr Q48H IV Last administered on 10:24; Start 11/02/16 at 10:00 Piperacillin Sod/ Tazobactam Sod 3.375 gm/Sodium Chloride 50 ml @ 100 mls/hr Q6HRS IV Last administered on 11/02/16 05:44; Start 10/31/16 at 18:00; Stop at 08:47; Status DC Acetaminophen (Tylenol) 650 mg PRN Q6HRS PRN PO FEVER Last administered on 11/01 20:26; Start 10/31/16 at 15:15; Stop 11/02/16 at 07:45; Status DC Ondansetron HCl (Zofran) 4 mg PRN Q6HRS PRN IV NAUSEA/VOMITING; Start 10/31/16 at 15:15 Morphine Sulfate 2 mg PRN Q2HR PRN IV PAIN Last administered on 11/01/16 15:48 ; Start 10/31/16 at 15:15 Tramadol HCl (Ultram) 50 mg PRN Q6HRS PRN PO PAIN; Start 10/31/16 at 15:15 Hydralazine HCl (Apresoline) 10 mg PRN Q4HRS PRN IVP ELEVATED BP, SEE COMMENTS ; Start 10/31/16 at 15:15 Docusate Sodium (Colace) 100 mg PRN DAILY PRN PO CONSTIPATION; Start 10/31/16 at 15:15 Albuterol/ Ipratropium (Duoneb) 3 ml RTQID NEB Last administered on 11/02/16 11:13; Start 10/31/16 at 16:00 Albuterol Sulfate (Ventolin Neb Soln) 2.5 mg PRN Q4HRS PRN NEB SHORTNESS OF BREATH; Start 10/31/16 at 15:15 Heparin Sodium (Porcine) (Heparin Sq) 5,000 unit Q8HRS SQ Last administered on 11/02/16 05:47; Start 10/31/16 at 22:00 Famotidine (Pepcid) 20 mg QHS IVP Last administered on 11/01/16 21:26; Start 10/31/16 at 21:00 Vancomycin HCl 2 gm/Sodium Chloride 500 ml @ 250 mls/hr Q24H IV Last administered on 11/01/16 13:49; Start 11/01/16 at 14:00 Vancomycin HCl 1 each 1X ONCE MC ; Start 11/02/16 at 13:30; Stop 11/02/16 at 13 :31 Sodium Chloride 1,000 ml @ 80 mls/hr [id number] IV Last administered on 04:07; Start 10/31/16 at 16:15 Sodium Chloride 1,000 ml @ 1,000 mls/hr 1X ONCE IV Last administered on 18:04; Start 10/31/16 at 14:00; Stop 10/31/16 at 17:23; Status DC Sodium Chloride 500 ml @ 500 mls/hr 1X ONCE IV Last administered on 17:30; Start 10/31/16 at 17:30; Stop 10/31/16 at 18:29; Status DC Fentanyl Citrate 30 ml @ 0 mls/hr CONT PRN IV PROTOCOL Last administered on 05:33; Start 10/31/16 at 18:30 Propofol 100 ml @ 0 mls/hr CONT PRN IV PER PROTOCOL Last administered on 19:00; Start 10/31/16 at 18:30 Chlorhexidine Gluconate (Peridex) 15 ml BID MM Last administered on 11/02/16 07:39; Start 10/31/16 at 21:00 Artificial Tears (Artificial Tears) 1 drop PRN Q1HR PRN OU DRY EYE; Start 10/31 at 18:30 Midazolam HCl 100 ml @ 0 mls/hr CONT PRN IV PER PROTOCOL Last administered on 08:19; Start 10/31/16 at 18:30 Succinylcholine Chloride (Anectine) 200 mg STK-MED ONCE .ROUTE ; Start 10/31/16 at 18:43; Stop 10/31/16 at 18:44; Status DC Midazolam HCl (Versed) 5 mg STK-MED ONCE .ROUTE ; Start 10/31/16 at 18:45; Stop 10/31/16 at 18:46; Status DC Midazolam HCl (Versed) 5 mg 1X ONCE IV Last administered on 10/31/16 19:30; Start 10/31/16 at 19:30; Stop 10/31/16 at 19:31; Status DC Succinylcholine Chloride (Anectine) 200 mg STK-MED ONCE .ROUTE ; Start 10/31/16 at 18:45; Stop 11/01/16 at 08:13; Status DC Furosemide (Lasix) 20 mg 1X ONCE IVP Last administered on 11/01/16 13:48; Start 11/01/16 at 13:30; Stop 11/01/16 at 13:31; Status DC Sodium Chloride 500 ml @ 500 mls/hr 1X ONCE IV Last administered on 23:09; Start 11/01/16 at 23:15; Stop 11/02/16 at 00:14; Status DC Acetaminophen (Tylenol) 650 mg PRN Q6HRS PRN PEG MILD PAIN / TEMP Last administered on 11/02/16 07:52; Start 11/02/16 at 07:45 Piperacillin Sod/ Tazobactam Sod 4.5 gm/Sodium Chloride 100 ml @ 200 mls/hr Q6HRS IV Last administered on 11/02/16 11:50; Start 11/02/16 at 12:00 Active Scripts Active Reported Trazodone Hcl 100 Mg Tablet 100 Mg PO HS Polyethylene Glycol 3350 255 Gm Powder 17 Gm PO DAILY Olanzapine 20 Mg Tablet 2 Tab PO QHS Montelukast Sodium Tablet (Montelukast Sodium) 10 Mg Tablet 10 Mg PO HS Meloxicam 15 Mg Tablet 1 Tab PO DAILY Losartan Potassium 50 Mg Tablet 50 Mg PO DAILY Lorazepam 1 Mg Tablet 1 Mg PO HS Lasix (Furosemide) 40 Mg Tablet 40 Mg PO PRN DAILY Hydrochlorothiazide Tablet (Hydrochlorothiazide) 25 Mg Tablet 25 Mg PO DAILY Folic Acid 1 Mg Tablet 1 Mg PO DAILY Fluoxetine Hcl 40 Mg Capsule 40 Mg PO DAILY Famotidine 20 Mg Tablet 20 Mg PO BID Duoneb 0.5-3(2.5) Mg/3 Ml (Albuterol/Ipratropium) 3 Ml Ampul.neb 3 Ml NEB QID Docusate Sodium 100 Mg Capsule 1 Cap PO BID Clonidine Hcl 0.1 Mg Tablet 0.1 Mg PO QID Cetirizine Hcl 10 Mg Tablet 1 Tab PO DAILY Vitals/I & O Vital Sign - Last 24 Hours 11/01/16 11/01/16 11/01/16 11/01/16 13:00 14:00 14:39 15:00 Pulse 72 72 94 Resp 20 20 20 B/P (MAP) 112/65 (81) 124/74 (91) 147/76 (99) Pulse Ox 98 98 98 94 O2 Delivery Ventilator Ventilator Ventilator Ventilator 11/01/16 11/01/16 11/01/16 11/01/16 15:19 15:48 16:00 16:00 Temp 101.6 101.6 Pulse 106 Resp 19 46 B/P (MAP) 111/63 (79) Pulse Ox 95 95 97 O2 Delivery Ventilator Ventilator Ventilator Mechanical Ventilator O2 Flow Rate 3.0 3.0 11/01/16 11/01/16 11/01/16 11/01/16 16:18 17:00 18:00 18:23 Temp 100.9 100.9 Pulse 92 80 Resp 20 19 20 B/P (MAP) 123/64 (83) 99/58 (72) Pulse Ox 95 95 93 94 O2 Delivery Ventilator Ventilator Ventilator Ventilator O2 Flow Rate 3.0 11/01/16 11/01/16 11/01/16 11/01/16 19:00 20:00 20:00 20:04 Temp 99.9 99.9 Pulse 78 88 Resp 20 20 B/P (MAP) 102/60 (74) 127/75 (92) Pulse Ox 94 96 94 O2 Delivery Ventilator Ventilator Mechanical Ventilator Ventilator 11/01/16 11/01/16 11/01/16 11/01/16 20:30 20:47 21:00 22:00 Temp 101.6 100.1 101.6 100.1 Pulse 115 93 84 Resp 20 20 20 20 B/P (MAP) 96/67 (77) 81/49 (60) Pulse Ox 97 96 95 95 O2 Delivery Ventilator Ventilator Ventilator Ventilator 11/01/16 11/01/16 11/01/16 11/01/16 22:36 23:00 23:59 23:59 Temp 100.2 100.2 Pulse 87 86 Resp 20 20 B/P (MAP) 91/54 (66) 95/53 (67) Pulse Ox 91 93 95 O2 Delivery Ventilator Ventilator Ventilator Mechanical Ventilator 11/02/16 11/02/16 11/02/16 11/02/16 01:00 01:10 02:00 03:00 Pulse 97 90 91 Resp 20 20 20 B/P (MAP) 133/74 (93) 94/57 (69) 107/63 (78) Pulse Ox 96 96 96 97 O2 Delivery Ventilator Ventilator Ventilator Ventilator 11/02/16 11/02/16 11/02/16 11/02/16 03:24 04:00 04:00 04:58 Temp 100.6 100.6 Pulse 96 Resp 20 B/P (MAP) 96/59 (71) Pulse Ox 96 94 96 O2 Delivery Ventilator Mechanical Ventilator Ventilator Ventilator 11/02/16 11/02/16 11/02/16 11/02/16 05:00 05:33 06:00 06:00 Pulse 92 87 Resp 20 20 20 20 B/P (MAP) 105/58 (74) 86/57 (67) Pulse Ox 95 93 93 93 O2 Delivery Ventilator Ventilator BiPAP/CPAP Ventilator 11/02/16 11/02/16 11/02/16 11/02/16 07:00 07:16 08:00 08:00 Temp 102.5 102.5 Pulse 90 100 Resp 20 22 B/P (MAP) 104/56 (72) 94/55 (68) Pulse Ox 96 96 97 O2 Delivery Ventilator Ventilator Ventilator Mechanical Ventilator 11/02/16 11/02/16 11/02/16 11/02/16 08:54 09:00 10:00 11:00 Temp 102.2 102.2 Pulse 92 91 88 Resp 20 19 20 B/P (MAP) 113/56 (75) 86/48 (61) 91/51 (64) Pulse Ox 96 96 96 96 O2 Delivery Ventilator Ventilator Ventilator Ventilator 11/02/16 11/02/16 11/02/16 11:10 12:00 12:00 Temp 100.6 100.6 Pulse 96 Resp 20 B/P (MAP) 90/48 (62) Pulse Ox 96 92 O2 Delivery Ventilator Ventilator Mechanical Ventilator Intake and Output 11/01/16 11/01/16 11/02/16 15:00 23:00 07:00 Intake Total 100 ml 1502.9 ml 2156 ml Output Total 1390 ml 780 ml 565 ml Balance -1290 ml 722.9 ml 1591 ml MATHIEU DUONG MD Nov 02, 2016 12:55
[2016-11-02] MEDS ORDERED: IV NORMAL SALINE 500ML BAG 500 ML IV ONE (13:00)
[2016-11-02] MEDS ORDERED: IV NORMAL SALINE 1000ML BAG 1,000 ML IV SCH (13:00)
--- NOTE | 2016-11-02 13:01 | PDOC ---
[facility] Progress Notes Date and Time Date of Service 11/02/2016 Time of Evaluation 1250 Subjective Subjective: Other (intubated and sedated) Vitals Vitals Vital Signs Date Time Temp Pulse Resp B/P (MAP) Pulse Ox O2 Delivery O2 Flow Rate FiO2 11/02/16 12:00 Mechanical Ventilator 11/02/16 12:00 100.6 96 20 90/48 (62) 92 100.6 11/01/16 16:18 3.0 Weight Weight [ ] Input and Output Intake and Output Intake and Output 11/02/16 07:00 Intake Total 3758.9 ml Output Total 2735 ml Balance 1023.9 ml IV Total 2938.9 ml Tube Feeding 730 ml Other 90 ml Output Urine Total 2735 ml Gastric Drainage Total 0 ml # Bowel Movements 2 Laboratory Labs Laboratory Tests Test 11/02/16 00:06 11/02/16 05:15 11/02/16 05:17 11/02/16 05:25 Glucose (Fingerstick) 133 mg/dL (70-99) 119 mg/dL (70-99) White Blood Count 11.5 x10^3/uL (4.0-11.0) Red Blood Count 4.07 x10^6/uL (3.50-5.40) Hemoglobin 11.4 g/dL (12.0-15.5) Hematocrit 36.7 % (36.0-47.0) Mean Corpuscular Volume 90 fL (79-100) Mean Corpuscular Hemoglobin 28 pg (25-35) Mean Corpuscular Hemoglobin Concent 31 g/dL (31-37) Red Cell Distribution Width 15.7 % (11.5-14.5) Platelet Count 244 x10^3/uL (140-400) Neutrophils (%) (Auto) 83 % (31-73) Lymphocytes (%) (Auto) 9 % (24-48) Monocytes (%) (Auto) 7 % (0-9) Eosinophils (%) (Auto) 0 % (0-3) Basophils (%) (Auto) 0 % (0-3) Neutrophils # (Auto) 9.6 x10^3uL (1.8-7.7) Lymphocytes # (Auto) 1.1 x10^3/uL (1.0-4.8) Monocytes # (Auto) 0.8 x10^3/uL (0.0-1.1) Eosinophils # (Auto) 0.0 x10^3/uL (0.0-0.7) Basophils # (Auto) 0.0 x10^3/uL (0.0-0.2) Sodium Level 145 mmol/L (136-145) Potassium Level 3.7 mmol/L (3.5-5.1) Chloride Level 107 mmol/L (98-107) Carbon Dioxide Level 29 mmol/L (21-32) Anion Gap 9 (6-14) Blood Urea Nitrogen 34 mg/dL (7-20) Creatinine 1.5 mg/dL (0.6-1.0) Estimated GFR (Cockcroft-Gault) 42.4 Glucose Level 122 mg/dL (70-99) Calcium Level 7.7 mg/dL (8.5-10.1) Creatine Kinase 1452 U/L (26-192) Test 11/02/16 08:00 11/02/16 11:45 O2 Saturation 94 % (92-99) Arterial Blood pH 7.44 (7.35-7.45) Arterial Blood pCO2 at Patient Temp 38 mmHg (35-46) Arterial Blood pO2 at Patient Temp 72 mmHg (65-108) Arterial Blood HCO3 25 mmol/L (21-28) Arterial Blood Base Excess 1 mmol/L (-3-3) FiO2 70 Glucose (Fingerstick) 147 mg/dL (70-99) Microbiology Micro Microbiology 10/31/16 Blood Culture - Preliminary, Resulted NO GROWTH AFTER 2 DAYS 11/01/16 Gram Stain - Final, Complete 10/31/16 Urine Culture - Preliminary, Resulted 10/31/16 Urine Culture Result 1 (ISAIAS) - Preliminary, Resulted Physical Exam HEENT: Neck Supple W Full Motion Chest: Symmetric LUNGS: Other (diffuse whezze, with bibasilar crackles; intubated) Heart: S1S2, RRR (SR without significant ectopies) Abdomen: Soft N/T Extremities: No Calf Tenderness, Other (1+ bilateral LE pitting edema) Neurology: other (sedated) Assessment Assessment 1. Acute respiratory failure with likely HCAP: remains intubated/sedated 2. Suspecting TALHA with hx of asthma 3. Acute on chronic diastolic CHF 4. Rhabdomyolysis: improving CK. Remains febrile 5. MICHI: improving, suspect underlying CKD3 6. Morbid obesity: BMI 52 7. HTN: low end 9. Tobaccoism Recommendations 1. Continue IV hydration, NGT feedings. Lasix PRN. 2. No ARB at this time. No meloxicam 3. EF at 60-65% with normal wall motion/LV systolic function/ no significant valvular disease. Moderate pulmonary HTN. Continue to hold BP meds. 4. Follow pulmonary recommendations. 5. Will follow along peripherally DARIEL ORDONEZ APRN Nov 02, 2016 13:01
[2016-11-02] MEDS: VANCOMYCIN 2 GM in IV NORMAL SALINE 500ML BAG 500 ML IV SCH (14:14)
[2016-11-02] MEDS: VANCOMYCIN PER PHARMACY MC PRN (14:32)
--- NOTE | 2016-11-02 15:02 | PDOC ---
PULMONARY PROGRESS NOTES Subjective PT SEDATED ON VERSED INTUBATED 10/31 SEC TO FAILURE ON BIPAP DECREASE SAT Vitals Vital Signs Date Time Temp Pulse Resp B/P (MAP) Pulse Ox O2 Delivery O2 Flow Rate FiO2 11/02/16 14:00 97 20 96/55 (69) 92 Ventilator 11/02/16 12:00 100.6 100.6 11/01/16 16:18 3.0 Cardiovascular: S1, S2 Abdomen: Soft, Non-tender Extremities: Other (EDEMA) Skin: Warm Labs Laboratory Tests Test 10/31/16 15:15 10/31/16 18:00 10/31/16 20:04 10/31/16 20:25 O2 Saturation 88 % (92-99) 99 % (92-99) 95 % (92-99) Arterial Blood pH 7.27 (7.35-7.45) 7.18 (7.35-7.45) 7.30 (7.35-7.45) Arterial Blood pCO2 at Patient Temp 54 mmHg (35-46) 70 mmHg (35-46) 51 mmHg (35-46) Arterial Blood pO2 at Patient Temp 64 mmHg (65-108) 185 mmHg (65-108) 88 mmHg (65-108) Arterial Blood HCO3 25 mmol/L (21-28) 25 mmol/L (21-28) 24 mmol/L (21-28) Arterial Blood Base Excess -3 mmol/L (-3-3) -4 mmol/L (-3-3) -3 mmol/L (-3-3) FiO2 70 100 100 Oxyhemoglobin 97.5 % Methemoglobin 0.4 % (0.0-1.9) Carbon Monoxide, Quantitative 0.9 % (0.0-1.9) Troponin I Quantitative 0.072 ng/mL (0.000-0.055) Test 11/01/16 05:00 11/01/16 08:00 11/02/16 00:06 11/02/16 05:15 White Blood Count 12.3 x10^3/uL (4.0-11.0) 11.5 x10^3/uL (4.0-11.0) Red Blood Count 4.07 x10^6/uL (3.50-5.40) 4.07 x10^6/uL (3.50-5.40) Hemoglobin 11.7 g/dL (12.0-15.5) 11.4 g/dL (12.0-15.5) Hematocrit 36.3 % (36.0-47.0) 36.7 % (36.0-47.0) Mean Corpuscular Volume 89 fL (79-100) 90 fL (79-100) Mean Corpuscular Hemoglobin 29 pg (25-35) 28 pg (25-35) Mean Corpuscular Hemoglobin Concent 32 g/dL (31-37) 31 g/dL (31-37) Red Cell Distribution Width 15.7 % (11.5-14.5) 15.7 % (11.5-14.5) Platelet Count 240 x10^3/uL (140-400) 244 x10^3/uL (140-400) Neutrophils (%) (Auto) 83 % (31-73) 83 % (31-73) Lymphocytes (%) (Auto) 8 % (24-48) 9 % (24-48) Monocytes (%) (Auto) 8 % (0-9) 7 % (0-9) Eosinophils (%) (Auto) 0 % (0-3) 0 % (0-3) Basophils (%) (Auto) 0 % (0-3) 0 % (0-3) Neutrophils # (Auto) 10.2 x10^3uL (1.8-7.7) 9.6 x10^3uL (1.8-7.7) Lymphocytes # (Auto) 1.0 x10^3/uL (1.0-4.8) 1.1 x10^3/uL (1.0-4.8) Monocytes # (Auto) 1.0 x10^3/uL (0.0-1.1) 0.8 x10^3/uL (0.0-1.1) Eosinophils # (Auto) 0.0 x10^3/uL (0.0-0.7) 0.0 x10^3/uL (0.0-0.7) Basophils # (Auto) 0.0 x10^3/uL (0.0-0.2) 0.0 x10^3/uL (0.0-0.2) Sodium Level 145 mmol/L (136-145) Potassium Level 4.1 mmol/L (3.5-5.1) Chloride Level 106 mmol/L (98-107) Carbon Dioxide Level 27 mmol/L (21-32) Anion Gap 12 (6-14) Blood Urea Nitrogen 36 mg/dL (7-20) Creatinine 1.6 mg/dL (0.6-1.0) Estimated GFR (Cockcroft-Gault) 39.4 Glucose Level 144 mg/dL (70-99) Calcium Level 6.9 mg/dL (8.5-10.1) Creatine Kinase 2405 U/L (26-192) Creatine Kinase MB (Mass) 8.2 ng/mL (0.0-3.6) Creatine Kinase MB Relative Index 0.3 % (0-4) Troponin I Quantitative 0.045 ng/mL (0.000-0.055) Triglycerides Level 138 mg/dL (0-150) Cholesterol Level 144 mg/dL (0-200) LDL Cholesterol, Calculated 92 mg/dL (0-100) VLDL Cholesterol, Calculated 28 mg/dL (0-40) Non-HDL Cholesterol Calculated 120 mg/dL (0-129) HDL Cholesterol 24 mg/dL (40-60) Cholesterol/HDL Ratio 6.0 O2 Saturation 88 % (92-99) Arterial Blood pH 7.34 (7.35-7.45) Arterial Blood pCO2 at Patient Temp 52 mmHg (35-46) Arterial Blood pO2 at Patient Temp 62 mmHg (65-108) Arterial Blood HCO3 28 mmol/L (21-28) Arterial Blood Base Excess 1 mmol/L (-3-3) FiO2 70 Glucose (Fingerstick) 133 mg/dL (70-99) Test 11/02/16 05:17 11/02/16 05:25 11/02/16 08:00 11/02/16 11:45 Glucose (Fingerstick) 119 mg/dL (70-99) 147 mg/dL (70-99) Sodium Level 145 mmol/L (136-145) Potassium Level 3.7 mmol/L (3.5-5.1) Chloride Level 107 mmol/L (98-107) Carbon Dioxide Level 29 mmol/L (21-32) Anion Gap 9 (6-14) Blood Urea Nitrogen 34 mg/dL (7-20) Creatinine 1.5 mg/dL (0.6-1.0) Estimated GFR (Cockcroft-Gault) 42.4 Glucose Level 122 mg/dL (70-99) Calcium Level 7.7 mg/dL (8.5-10.1) Creatine Kinase 1452 U/L (26-192) O2 Saturation 94 % (92-99) Arterial Blood pH 7.44 (7.35-7.45) Arterial Blood pCO2 at Patient Temp 38 mmHg (35-46) Arterial Blood pO2 at Patient Temp 72 mmHg (65-108) Arterial Blood HCO3 25 mmol/L (21-28) Arterial Blood Base Excess 1 mmol/L (-3-3) FiO2 70 Test 11/02/16 13:25 Vancomycin Level Trough 12.4 mcg/mL (10.0-20.0) Vancomycin Last Dose Date 11/01/16 Vancomycin Last Dose Time 1400 Laboratory Tests Test 11/02/16 00:06 11/02/16 05:15 11/02/16 05:17 11/02/16 05:25 Glucose (Fingerstick) 133 mg/dL (70-99) 119 mg/dL (70-99) White Blood Count 11.5 x10^3/uL (4.0-11.0) Red Blood Count 4.07 x10^6/uL (3.50-5.40) Hemoglobin 11.4 g/dL (12.0-15.5) Hematocrit 36.7 % (36.0-47.0) Mean Corpuscular Volume 90 fL (79-100) Mean Corpuscular Hemoglobin 28 pg (25-35) Mean Corpuscular Hemoglobin Concent 31 g/dL (31-37) Red Cell Distribution Width 15.7 % (11.5-14.5) Platelet Count 244 x10^3/uL (140-400) Neutrophils (%) (Auto) 83 % (31-73) Lymphocytes (%) (Auto) 9 % (24-48) Monocytes (%) (Auto) 7 % (0-9) Eosinophils (%) (Auto) 0 % (0-3) Basophils (%) (Auto) 0 % (0-3) Neutrophils # (Auto) 9.6 x10^3uL (1.8-7.7) Lymphocytes # (Auto) 1.1 x10^3/uL (1.0-4.8) Monocytes # (Auto) 0.8 x10^3/uL (0.0-1.1) Eosinophils # (Auto) 0.0 x10^3/uL (0.0-0.7) Basophils # (Auto) 0.0 x10^3/uL (0.0-0.2) Sodium Level 145 mmol/L (136-145) Potassium Level 3.7 mmol/L (3.5-5.1) Chloride Level 107 mmol/L (98-107) Carbon Dioxide Level 29 mmol/L (21-32) Anion Gap 9 (6-14) Blood Urea Nitrogen 34 mg/dL (7-20) Creatinine 1.5 mg/dL (0.6-1.0) Estimated GFR (Cockcroft-Gault) 42.4 Glucose Level 122 mg/dL (70-99) Calcium Level 7.7 mg/dL (8.5-10.1) Creatine Kinase 1452 U/L (26-192) Test 11/02/16 08:00 11/02/16 11:45 11/02/16 13:25 O2 Saturation 94 % (92-99) Arterial Blood pH 7.44 (7.35-7.45) Arterial Blood pCO2 at Patient Temp 38 mmHg (35-46) Arterial Blood pO2 at Patient Temp 72 mmHg (65-108) Arterial Blood HCO3 25 mmol/L (21-28) Arterial Blood Base Excess 1 mmol/L (-3-3) FiO2 70 Glucose (Fingerstick) 147 mg/dL (70-99) Vancomycin Level Trough 12.4 mcg/mL (10.0-20.0) Vancomycin Last Dose Date 11/01/16 Vancomycin Last Dose Time 1400 Medications Active Scripts Medications Dose Route/Sig Max Daily Dose Days Date Category Trazodone Hcl 100 Mg Tablet 100 Mg PO HS 10/31/16 Reported Polyethylene Glycol 3350 255 Gm Powder 17 Gm PO DAILY 10/31/16 Reported Olanzapine 20 Mg Tablet 2 Tab PO QHS 10/31/16 Reported Montelukast Sodium Tablet (Montelukast Sodium) 10 Mg Tablet 10 Mg PO HS 10/31/16 Reported Meloxicam 15 Mg Tablet 1 Tab PO DAILY 10/31/16 Reported Losartan Potassium 50 Mg Tablet 50 Mg PO DAILY 10/31/16 Reported Lorazepam 1 Mg Tablet 1 Mg PO HS 10/31/16 Reported Lasix (Furosemide) 40 Mg Tablet 40 Mg PO PRN DAILY 10/31/16 Reported Hydrochlorothiazide Tablet (Hydrochlorothiazide) 25 Mg Tablet 25 Mg PO DAILY 10/31/16 Reported Folic Acid 1 Mg Tablet 1 Mg PO DAILY 10/31/16 Reported Fluoxetine Hcl 40 Mg Capsule 40 Mg PO DAILY 10/31/16 Reported Famotidine 20 Mg Tablet 20 Mg PO BID 10/31/16 Reported Duoneb 0.5-3(2.5) Mg/3 Ml (Albuterol/Ipratropium) 3 Ml Ampul.neb 3 Ml NEB QID 10/31/16 Reported Docusate Sodium 100 Mg Capsule 1 Cap PO BID 10/31/16 Reported Clonidine Hcl 0.1 Mg Tablet 0.1 Mg PO QID 10/31/16 Reported Cetirizine Hcl 10 Mg Tablet 1 Tab PO DAILY 10/31/16 Reported Comments IMPRESSION: Stable cardiomegaly. Persistent infiltrates likely reflecting congestive heart failure slight stable to slightly worse. Appropriately positioned endotracheal and nasogastric tubes. Slight volume loss at the left lung base likely reflecting atelectasis Impression . A/C HYPERCAPNIA HYPOXEMIC RESP FAILURE MULTIFACTORIAL FAILED BIPAP INTUBATED ACUTE HEART FAILURE SUSPECT DIASTOLIC TALHA/OHS ACUTE RENAL FAILURE MORBID OBESITY FEVER POSSIBLE PNEUMONIA GRAM NEG/GRAM POS POSSIBLE SEPSIS/FEVER Plan . AC MODE ON 7 PEEP AND 70% DIURESE ANTIBX PER ID DVT AND GI PROPH CARD CONSULTED IV FLUIDS CLIVE MEDRANO MD Nov 02, 2016 15:02
[2016-11-02] MEDS: FAMOTIDINE 20 MG/2 ML VIAL IVP SCH (21:55)
[2016-11-03] VITALS (24 sets, daily range): BP systolic 82–133; BP diastolic 45–77
[2016-11-03] MEDS: PIPERACILLIN/TAZOBACTAM 4.5 GM in IV NORMAL SALINE 100ML 100 ML IV SCH ×5 (00:01→18:45)
[2016-11-03] MEDS: ACETAMINOPHEN 650 MG/20.3 ML SOLUTION. PEG PRN ×3 (00:09→16:46)
[2016-11-03] MEDS: MIDAZOLAM PREMIX 100 ML IV PRN (05:31)
[2016-11-03] MEDS: HEPARIN PF for SUB-Q USE 5,000 UNIT/0.5 ML VIAL. SQ SCH ×3 (05:33→21:33)
--- NOTE | 2016-11-03 07:46 | PDOC ---
Infectious Disease Note Subjective Subjective sedated on vent ROS ROS unable to do Vital Sign Vital Signs Vital Signs Date Time Temp Pulse Resp B/P (MAP) Pulse Ox O2 Delivery O2 Flow Rate FiO2 11/03/16 07:00 87 20 95/58 (70) 92 Ventilator 11/03/16 06:00 103.0 103.0 Physical Exam PHYSICAL EXAM GENERAL: NAD, on vent HEENT: PERRL, OC/OP NECK: Supple, no JVD, no LN LUNGS: Clear HEART: S1S2, no gallop, no murmur ABD: Soft, NT, no organomegaly, no rebound EXT: No edema, no cyanosis [employer]CE [employer]: sedated on vent SKIN: No rash IV: ok Labs Lab Laboratory Tests Test 11/02/16 08:00 11/02/16 11:45 11/02/16 13:25 11/03/16 00:13 O2 Saturation 94 % (92-99) Arterial Blood pH 7.44 (7.35-7.45) Arterial Blood pCO2 at Patient Temp 38 mmHg (35-46) Arterial Blood pO2 at Patient Temp 72 mmHg (65-108) Arterial Blood HCO3 25 mmol/L (21-28) Arterial Blood Base Excess 1 mmol/L (-3-3) FiO2 70 Glucose (Fingerstick) 147 mg/dL (70-99) 147 mg/dL (70-99) Vancomycin Level Trough 12.4 mcg/mL (10.0-20.0) Vancomycin Last Dose Date 11/01/16 Vancomycin Last Dose Time 1400 Test 11/03/16 05:50 Glucose (Fingerstick) 127 mg/dL (70-99) Micro BC neg URINE CULTURE Final Final report URINE CULTURE RES 1 Final Klebsiella pneumoniae Greater than 100,000 colony forming units per mL ANTIMICROBIAL SUSCEPTIBILITY Final Comment S = Susceptible; I = Intermediate; R = Resistant P = Positive; N = Negative MICS are expressed in micrograms per mL Antibiotic RSLT#1 RSLT#2 RSLT#3 RSLT#4 Amoxicillin/Clavulanic Acid S Ampicillin R Cefepime S Ceftriaxone S Cefuroxime S Cephalothin S Ciprofloxacin S Ertapenem S Gentamicin S Imipenem S Levofloxacin S Nitrofurantoin S Piperacillin S Tetracycline S Tobramycin S Trimethoprim/Sulfa S Performed at: [address] [id number] Nuclear Radiologist: Yumiko Merritt MD, Phone: [phone] Objective Assessment Fever Leukocytosis Respiratory failure Ángel pulmonary infiltrate, chf vs pneumonia ARF Schizophrenia Plan Plan of Care vanc, zosyn and levaquin supportive care check cultures CAITY SMITH MD Nov 03, 2016 07:46
[2016-11-03] MEDS: IPRATRPIUM/ALBUTEROL 0.5/2.5MG 3 ML NEBU. NEB SCH ×4 (08:23→19:39)
[2016-11-03] MEDS: IV NORMAL SALINE 1000ML BAG 1,000 ML IV SCH ×2 (08:27→19:14)
[2016-11-03] MEDS: CHLORHEXIDINE 0.12% 15 ML MOUTHWASH. MM SCH ×2 (08:30→21:00)
[2016-11-03] MEDS: VANCOMYCIN 1.75 GM in IV NORMAL SALINE 500ML BAG 500 ML IV SCH (08:30)
[2016-11-03 08:42] LABS: HCO3 ABG 26 mmol/L (21-28); PCO2 ABG 41 mmHg (35-46); PH ABG 7.41 (7.35-7.45); PO2 ABG 74 mmHg (65-108); SAT O2 ABG 94 % (92-99)
[2016-11-03 08:44] LABS: FIO2 ABG 70
--- NOTE | 2016-11-03 08:59 | RAD ---
Indication respiratory failure. A single view of the chest was obtained and is compared to an examination one day earlier. There has been little change. Patchy pulmonary infiltrates suggesting a component of congestive heart failure persist. Some volume loss is present in the left lower lobe appearing unchanged. Endotracheal tube and nasogastric tubes are again noted. IMPRESSION: No significant change
--- NOTE | 2016-11-03 09:24 | PDOC ---
PROGRESS NOTES Chief Complaint Chief Complaint Acute hypoxic and hypercapnic resp failure with HAP, Failed on bipap and intubation 10/31 Fever and leukocytosis: persistant Healthcare associated pneumonia possible gram-negative rods COPD morbid obesity Congestive heart failure ckd with jerrod, vasomotor HX of schizophrenia HTN tobaccoism Elevated CPK PLAN: Continue to have fevers this morning, continue IV Zosyn and vancomycin and the Levaquin. Vancomycin renal dosing, Continue IV hydration with saline, Making good urine, Increased residuals, try Regaln once, order KUB The patient did not respond to IV hydration consider Levophed for severe Hypotension. On mechanical ventilation, on Versed and fentanyl for sedation and pain DVT prophylaxis with Lovenox Echo report reviewed no acute CHF Chest x-ray reviewed Labs reviewed Discussed with RN Periodic nebulizations as per respiratory therapy. Monitor intake and output Monitor CPK Prognosis guarded, condition critical. Critical care time 33 minutes. History of Present Illness History of Present Illness no BM Distended abdomen fevers persistent Vitals Vitals Vital Signs Date Time Temp Pulse Resp B/P (MAP) Pulse Ox O2 Delivery O2 Flow Rate FiO2 11/03/16 08:24 94 Ventilator 11/03/16 07:00 87 20 95/58 (70) 11/03/16 06:00 103.0 103.0 Physical Exam Physical Exam intubated, sedated Heart: Regular rate (SR), Normal S1, Normal S2, Other (difficult to note due to adventitious sounds and bipap) Abdomen: Soft, No tenderness, Other (obese, mild distended) Extremities: No cyanosis, Other (1+ bilateral LE pitting edema) Skin: No breakdown, No significant lesion Labs LABS Laboratory Tests Test 11/02/16 11:45 11/02/16 13:25 11/03/16 00:13 11/03/16 05:50 Glucose (Fingerstick) 147 mg/dL (70-99) 147 mg/dL (70-99) 127 mg/dL (70-99) Vancomycin Level Trough 12.4 mcg/mL (10.0-20.0) Vancomycin Last Dose Date 11/01/16 Vancomycin Last Dose Time 1400 Test 11/03/16 08:35 O2 Saturation 94 % (92-99) Arterial Blood pH 7.41 (7.35-7.45) Arterial Blood pCO2 at Patient Temp 41 mmHg (35-46) Arterial Blood pO2 at Patient Temp 74 mmHg (65-108) Arterial Blood HCO3 26 mmol/L (21-28) Arterial Blood Base Excess 1 mmol/L (-3-3) FiO2 70 Comment Review of Relevant I have reviewed the following items asif (where applicable) has been applied. Labs Laboratory Tests Test 11/02/16 00:06 11/02/16 05:15 11/02/16 05:17 11/02/16 05:25 Glucose (Fingerstick) 133 mg/dL (70-99) 119 mg/dL (70-99) White Blood Count 11.5 x10^3/uL (4.0-11.0) Red Blood Count 4.07 x10^6/uL (3.50-5.40) Hemoglobin 11.4 g/dL (12.0-15.5) Hematocrit 36.7 % (36.0-47.0) Mean Corpuscular Volume 90 fL (79-100) Mean Corpuscular Hemoglobin 28 pg (25-35) Mean Corpuscular Hemoglobin Concent 31 g/dL (31-37) Red Cell Distribution Width 15.7 % (11.5-14.5) Platelet Count 244 x10^3/uL (140-400) Neutrophils (%) (Auto) 83 % (31-73) Lymphocytes (%) (Auto) 9 % (24-48) Monocytes (%) (Auto) 7 % (0-9) Eosinophils (%) (Auto) 0 % (0-3) Basophils (%) (Auto) 0 % (0-3) Neutrophils # (Auto) 9.6 x10^3uL (1.8-7.7) Lymphocytes # (Auto) 1.1 x10^3/uL (1.0-4.8) Monocytes # (Auto) 0.8 x10^3/uL (0.0-1.1) Eosinophils # (Auto) 0.0 x10^3/uL (0.0-0.7) Basophils # (Auto) 0.0 x10^3/uL (0.0-0.2) Sodium Level 145 mmol/L (136-145) Potassium Level 3.7 mmol/L (3.5-5.1) Chloride Level 107 mmol/L (98-107) Carbon Dioxide Level 29 mmol/L (21-32) Anion Gap 9 (6-14) Blood Urea Nitrogen 34 mg/dL (7-20) Creatinine 1.5 mg/dL (0.6-1.0) Estimated GFR (Cockcroft-Gault) 42.4 Glucose Level 122 mg/dL (70-99) Calcium Level 7.7 mg/dL (8.5-10.1) Creatine Kinase 1452 U/L (26-192) Test 11/02/16 08:00 11/02/16 11:45 11/02/16 13:25 11/03/16 00:13 O2 Saturation 94 % (92-99) Arterial Blood pH 7.44 (7.35-7.45) Arterial Blood pCO2 at Patient Temp 38 mmHg (35-46) Arterial Blood pO2 at Patient Temp 72 mmHg (65-108) Arterial Blood HCO3 25 mmol/L (21-28) Arterial Blood Base Excess 1 mmol/L (-3-3) FiO2 70 Glucose (Fingerstick) 147 mg/dL (70-99) 147 mg/dL (70-99) Vancomycin Level Trough 12.4 mcg/mL (10.0-20.0) Vancomycin Last Dose Date 11/01/16 Vancomycin Last Dose Time 1400 Test 11/03/16 05:50 11/03/16 08:35 Glucose (Fingerstick) 127 mg/dL (70-99) O2 Saturation 94 % (92-99) Arterial Blood pH 7.41 (7.35-7.45) Arterial Blood pCO2 at Patient Temp 41 mmHg (35-46) Arterial Blood pO2 at Patient Temp 74 mmHg (65-108) Arterial Blood HCO3 26 mmol/L (21-28) Arterial Blood Base Excess 1 mmol/L (-3-3) FiO2 70 Laboratory Tests Test 11/02/16 11:45 11/02/16 13:25 11/03/16 00:13 11/03/16 05:50 Glucose (Fingerstick) 147 mg/dL (70-99) 147 mg/dL (70-99) 127 mg/dL (70-99) Vancomycin Level Trough 12.4 mcg/mL (10.0-20.0) Vancomycin Last Dose Date 11/01/16 Vancomycin Last Dose Time 1400 Test 11/03/16 08:35 O2 Saturation 94 % (92-99) Arterial Blood pH 7.41 (7.35-7.45) Arterial Blood pCO2 at Patient Temp 41 mmHg (35-46) Arterial Blood pO2 at Patient Temp 74 mmHg (65-108) Arterial Blood HCO3 26 mmol/L (21-28) Arterial Blood Base Excess 1 mmol/L (-3-3) FiO2 70 Microbiology 10/31/16 Blood Culture - Preliminary, Resulted NO GROWTH AFTER 2 DAYS 11/01/16 Gram Stain - Final, Complete 10/31/16 Urine Culture - Final, Complete 10/31/16 Urine Culture Result 1 (ISAIAS) - Final, Complete 10/31/16 Antimicrobic Susceptibility - Final, Complete Medications Current Medications Methylprednisolone Sodium Succinate (SOLU-Medrol 125MG VIAL) 125 mg 1X ONCE IV Last administered on 10/31/16 11:18; Start 10/31/16 at 11:00; Stop 10/31/16 at 11:01; Status DC Albuterol/ Ipratropium (Duoneb) 3 ml 1X ONCE NEB Last administered on 11:00; Start 10/31/16 at 11:00; Stop 10/31/16 at 11:01; Status DC Furosemide (Lasix) 40 mg 1X ONCE IVP Last administered on 10/31/16 11:17; Start 10/31/16 at 11:15; Stop 10/31/16 at 11:16; Status DC Vancomycin HCl (Vanco Per Pharmacy) 1 each PRN DAILY PRN MC SEE COMMENTS Last administered on 11/02/16 14:32; Start 10/31/16 at 11:30 Piperacillin Sod/ Tazobactam Sod (Zosyn Per Pharmacy) 1 each PRN DAILY PRN MC SEE COMMENTS; Start 10/31/16 at 11:30; Stop 11/02/16 at 08:44; Status DC Levofloxacin/ Dextrose (Levaquin Per Pharmacy) 1 each PRN DAILY PRN MC SEE COMMENTS; Start 10/31/16 at 11:30; Stop 10/31/16 at 12:57; Status DC Vancomycin HCl 2 gm/Sodium Chloride 500 ml @ 250 mls/hr 1X ONCE IV Last administered on 10/31/16 14:30; Start 10/31/16 at 11:30; Stop 10/31/16 at 13:29 ; Status DC Levofloxacin/ Dextrose 150 ml @ 100 mls/hr ONCE ONCE IV Last administered on 10/31/16 12:45; Start 10/31/16 at 11:30; Stop 10/31/16 at 12:59; Status DC Piperacillin Sod/ Tazobactam Sod 3.375 gm/Sodium Chloride 50 ml @ 100 mls/hr ONCE ONCE IV Last administered on 10/31/16 11:38; Start 10/31/16 at 11:45; Stop 10/31/16 at 12:14; Status DC Levofloxacin/ Dextrose 150 ml @ 100 mls/hr Q48H IV Last administered on 10:24; Start 11/02/16 at 10:00 Piperacillin Sod/ Tazobactam Sod 3.375 gm/Sodium Chloride 50 ml @ 100 mls/hr Q6HRS IV Last administered on 11/02/16 05:44; Start 10/31/16 at 18:00; Stop at 08:47; Status DC Acetaminophen (Tylenol) 650 mg PRN Q6HRS PRN PO FEVER Last administered on 11/01 20:26; Start 10/31/16 at 15:15; Stop 11/02/16 at 07:45; Status DC Ondansetron HCl (Zofran) 4 mg PRN Q6HRS PRN IV NAUSEA/VOMITING; Start 10/31/16 at 15:15 Morphine Sulfate 2 mg PRN Q2HR PRN IV PAIN Last administered on 11/01/16 15:48 ; Start 10/31/16 at 15:15 Tramadol HCl (Ultram) 50 mg PRN Q6HRS PRN PO PAIN; Start 10/31/16 at 15:15 Hydralazine HCl (Apresoline) 10 mg PRN Q4HRS PRN IVP ELEVATED BP, SEE COMMENTS ; Start 10/31/16 at 15:15 Docusate Sodium (Colace) 100 mg PRN DAILY PRN PO CONSTIPATION; Start 10/31/16 at 15:15 Albuterol/ Ipratropium (Duoneb) 3 ml RTQID NEB Last administered on 11/03/16 08:23; Start 10/31/16 at 16:00 Albuterol Sulfate (Ventolin Neb Soln) 2.5 mg PRN Q4HRS PRN NEB SHORTNESS OF BREATH; Start 10/31/16 at 15:15 Heparin Sodium (Porcine) (Heparin Sq) 5,000 unit Q8HRS SQ Last administered on 11/03/16 05:33; Start 10/31/16 at 22:00 Famotidine (Pepcid) 20 mg QHS IVP Last administered on 11/02/16 21:55; Start 10/31/16 at 21:00 Vancomycin HCl 2 gm/Sodium Chloride 500 ml @ 250 mls/hr Q24H IV Last administered on 11/02/16 14:14; Start 11/01/16 at 14:00; Stop 11/02/16 at 14:24 ; Status DC Vancomycin HCl 1 each 1X ONCE MC Last administered on 11/02/16 13:30; Start 11/02/16 at 13:30; Stop 11/02/16 at 13:31; Status DC Sodium Chloride 1,000 ml @ 80 mls/hr [id number] IV Last administered on 08:27; Start 10/31/16 at 16:15 Sodium Chloride 1,000 ml @ 1,000 mls/hr 1X ONCE IV Last administered on 18:04; Start 10/31/16 at 14:00; Stop 10/31/16 at 17:23; Status DC Sodium Chloride 500 ml @ 500 mls/hr 1X ONCE IV Last administered on 17:30; Start 10/31/16 at 17:30; Stop 10/31/16 at 18:29; Status DC Fentanyl Citrate 30 ml @ 0 mls/hr CONT PRN IV PROTOCOL Last administered on 03:16; Start 10/31/16 at 18:30 Propofol 100 ml @ 0 mls/hr CONT PRN IV PER PROTOCOL Last administered on 19:00; Start 10/31/16 at 18:30 Chlorhexidine Gluconate (Peridex) 15 ml BID MM Last administered on 11/03/16 08:30; Start 10/31/16 at 21:00 Artificial Tears (Artificial Tears) 1 drop PRN Q1HR PRN OU DRY EYE; Start 10/31 at 18:30 Midazolam HCl 100 ml @ 0 mls/hr CONT PRN IV PER PROTOCOL Last administered on 05:31; Start 10/31/16 at 18:30 Succinylcholine Chloride (Anectine) 200 mg STK-MED ONCE .ROUTE ; Start 10/31/16 at 18:43; Stop 10/31/16 at 18:44; Status DC Midazolam HCl (Versed) 5 mg STK-MED ONCE .ROUTE ; Start 10/31/16 at 18:45; Stop 10/31/16 at 18:46; Status DC Midazolam HCl (Versed) 5 mg 1X ONCE IV Last administered on 10/31/16 19:30; Start 10/31/16 at 19:30; Stop 10/31/16 at 19:31; Status DC Succinylcholine Chloride (Anectine) 200 mg STK-MED ONCE .ROUTE ; Start 10/31/16 at 18:45; Stop 11/01/16 at 08:13; Status DC Furosemide (Lasix) 20 mg 1X ONCE IVP Last administered on 11/01/16 13:48; Start 11/01/16 at 13:30; Stop 11/01/16 at 13:31; Status DC Sodium Chloride 500 ml @ 500 mls/hr 1X ONCE IV Last administered on 23:09; Start 11/01/16 at 23:15; Stop 11/02/16 at 00:14; Status DC Acetaminophen (Tylenol) 650 mg PRN Q6HRS PRN PEG MILD PAIN / TEMP Last administered on 11/03/16 05:47; Start 11/02/16 at 07:45 Piperacillin Sod/ Tazobactam Sod 4.5 gm/Sodium Chloride 100 ml @ 200 mls/hr Q6HRS IV Last administered on 11/03/16 05:30; Start 11/02/16 at 12:00 Sodium Chloride 500 ml @ 500 mls/hr 1X ONCE IV Last administered on 14:10; Start 11/02/16 at 13:00; Stop 11/02/16 at 13:59; Status DC Sodium Chloride 1,000 ml @ 75 mls/hr [id number] IV ; Start 11/02/16 at 13:00; Stop 11/02/16 at 13:25; Status DC Vancomycin HCl 1.75 gm/Sodium Chloride 500 ml @ 250 mls/hr Q18H IV Last administered on 11/03/16 08:30; Start 11/03/16 at 08:00 Vancomycin HCl 1 each 1X ONCE MC ; Start 11/04/16 at 19:30; Stop 11/04/16 at 19 :31 Active Scripts Active Reported Trazodone Hcl 100 Mg Tablet 100 Mg PO HS Polyethylene Glycol 3350 255 Gm Powder 17 Gm PO DAILY Olanzapine 20 Mg Tablet 2 Tab PO QHS Montelukast Sodium Tablet (Montelukast Sodium) 10 Mg Tablet 10 Mg PO HS Meloxicam 15 Mg Tablet 1 Tab PO DAILY Losartan Potassium 50 Mg Tablet 50 Mg PO DAILY Lorazepam 1 Mg Tablet 1 Mg PO HS Lasix (Furosemide) 40 Mg Tablet 40 Mg PO PRN DAILY Hydrochlorothiazide Tablet (Hydrochlorothiazide) 25 Mg Tablet 25 Mg PO DAILY Folic Acid 1 Mg Tablet 1 Mg PO DAILY Fluoxetine Hcl 40 Mg Capsule 40 Mg PO DAILY Famotidine 20 Mg Tablet 20 Mg PO BID Duoneb 0.5-3(2.5) Mg/3 Ml (Albuterol/Ipratropium) 3 Ml Ampul.neb 3 Ml NEB QID Docusate Sodium 100 Mg Capsule 1 Cap PO BID Clonidine Hcl 0.1 Mg Tablet 0.1 Mg PO QID Cetirizine Hcl 10 Mg Tablet 1 Tab PO DAILY Vitals/I & O Vital Sign - Last 24 Hours 11/02/16 11/02/16 11/02/16 11/02/16 10:00 11:00 11:10 12:00 Temp 102.2 100.6 102.2 100.6 Pulse 91 88 96 Resp 19 20 20 B/P (MAP) 86/48 (61) 91/51 (64) 90/48 (62) Pulse Ox 96 96 96 92 O2 Delivery Ventilator Ventilator Ventilator Ventilator 11/02/16 11/02/16 11/02/16 11/02/16 12:00 12:59 13:00 14:00 Pulse 91 97 Resp 20 20 B/P (MAP) 103/53 (70) 96/55 (69) Pulse Ox 93 94 92 O2 Delivery Mechanical Ventilator Ventilator Ventilator Ventilator 11/02/16 11/02/16 11/02/16 11/02/16 15:00 15:15 16:00 16:00 Temp 101.4 100.5 101.4 100.5 Pulse 92 95 Resp 20 20 B/P (MAP) 110/63 (79) 107/57 (74) Pulse Ox 96 93 95 O2 Delivery Ventilator Ventilator Mechanical Ventilator Ventilator 11/02/16 11/02/16 11/02/16 11/02/16 17:00 17:15 17:25 18:00 Pulse 84 84 Resp 20 20 20 B/P (MAP) 78/43 (55) 82/49 (60) Pulse Ox 95 94 95 95 O2 Delivery Ventilator Ventilator Ventilator Ventilator 11/02/16 11/02/16 11/02/16 11/02/16 19:00 19:29 20:00 20:00 Temp 100.9 100.9 Pulse 82 90 Resp 20 20 B/P (MAP) 93/50 (64) 103/58 (73) Pulse Ox 94 95 95 O2 Delivery Ventilator Ventilator Ventilator Mechanical Ventilator 11/02/16 11/02/16 11/02/16 11/02/16 21:00 22:00 23:00 23:26 Pulse 96 94 94 Resp 20 20 20 B/P (MAP) 96/57 (70) 111/59 (76) 96/59 (71) Pulse Ox 95 94 94 95 O2 Delivery Ventilator Ventilator Ventilator Ventilator 11/02/16 11/02/16 11/03/16 11/03/16 23:59 23:59 01:00 01:40 Temp 101.2 101.2 Pulse 94 91 Resp 20 20 B/P (MAP) 96/54 (68) 101/63 (76) Pulse Ox 94 92 95 O2 Delivery Ventilator Mechanical Ventilator Ventilator Ventilator 11/03/16 11/03/16 11/03/16 11/03/16 02:00 03:00 03:16 03:36 Pulse 84 91 Resp 20 20 20 B/P (MAP) 87/57 (67) 97/60 (72) Pulse Ox 96 96 95 95 O2 Delivery Ventilator Ventilator Ventilator Ventilator 11/03/16 11/03/16 11/03/16 11/03/16 03:45 04:00 04:00 05:00 Temp 101.0 101.0 Pulse 98 92 Resp 20 20 20 B/P (MAP) 109/61 (77) 82/45 (57) Pulse Ox 95 96 93 O2 Delivery Ventilator Mechanical Ventilator Ventilator Ventilator 11/03/16 11/03/16 11/03/16 06:00 07:00 08:24 Temp 103.0 103.0 Pulse 94 87 Resp 20 20 B/P (MAP) 98/53 (68) 95/58 (70) Pulse Ox 94 92 94 O2 Delivery Ventilator Ventilator Ventilator Intake and Output 11/02/16 11/02/16 11/03/16 15:00 23:00 07:00 Intake Total 460 ml 2335.71 ml 2701 ml Output Total 425 ml 700 ml 620 ml Balance 35 ml 1635.71 ml 2081 ml MATHIEU DUONG MD Nov 03, 2016 09:24
[2016-11-03 10:12] LABS: CALCIUM 7.5 mg/dL (8.5-10.1); CREATININE 1.7 mg/dL (0.6-1.0); GFR 36.7; POTASSIUM 3.8 mmol/L (3.5-5.1)
--- NOTE | 2016-11-03 10:37 | PDOC ---
PULMONARY PROGRESS NOTES Subjective PT SEDATED ON VERSED FENTANYL, ON PEEP 7, FIO2 70% INTUBATED 10/31 SEC TO FAILURE ON BIPAP DECREASE SAT Vitals Vital Signs Date Time Temp Pulse Resp B/P (MAP) Pulse Ox O2 Delivery O2 Flow Rate FiO2 11/03/16 09:46 94 Ventilator 11/03/16 07:00 87 20 95/58 (70) 11/03/16 06:00 103.0 103.0 Cardiovascular: S1, S2 Abdomen: Soft, Non-tender Extremities: Other (EDEMA) Skin: Warm Labs Laboratory Tests Test 11/02/16 00:06 11/02/16 05:15 11/02/16 05:17 11/02/16 05:25 Glucose (Fingerstick) 133 mg/dL (70-99) 119 mg/dL (70-99) White Blood Count 11.5 x10^3/uL (4.0-11.0) Red Blood Count 4.07 x10^6/uL (3.50-5.40) Hemoglobin 11.4 g/dL (12.0-15.5) Hematocrit 36.7 % (36.0-47.0) Mean Corpuscular Volume 90 fL (79-100) Mean Corpuscular Hemoglobin 28 pg (25-35) Mean Corpuscular Hemoglobin Concent 31 g/dL (31-37) Red Cell Distribution Width 15.7 % (11.5-14.5) Platelet Count 244 x10^3/uL (140-400) Neutrophils (%) (Auto) 83 % (31-73) Lymphocytes (%) (Auto) 9 % (24-48) Monocytes (%) (Auto) 7 % (0-9) Eosinophils (%) (Auto) 0 % (0-3) Basophils (%) (Auto) 0 % (0-3) Neutrophils # (Auto) 9.6 x10^3uL (1.8-7.7) Lymphocytes # (Auto) 1.1 x10^3/uL (1.0-4.8) Monocytes # (Auto) 0.8 x10^3/uL (0.0-1.1) Eosinophils # (Auto) 0.0 x10^3/uL (0.0-0.7) Basophils # (Auto) 0.0 x10^3/uL (0.0-0.2) Sodium Level 145 mmol/L (136-145) Potassium Level 3.7 mmol/L (3.5-5.1) Chloride Level 107 mmol/L (98-107) Carbon Dioxide Level 29 mmol/L (21-32) Anion Gap 9 (6-14) Blood Urea Nitrogen 34 mg/dL (7-20) Creatinine 1.5 mg/dL (0.6-1.0) Estimated GFR (Cockcroft-Gault) 42.4 Glucose Level 122 mg/dL (70-99) Calcium Level 7.7 mg/dL (8.5-10.1) Creatine Kinase 1452 U/L (26-192) Test 11/02/16 08:00 11/02/16 11:45 11/02/16 13:25 11/03/16 00:13 O2 Saturation 94 % (92-99) Arterial Blood pH 7.44 (7.35-7.45) Arterial Blood pCO2 at Patient Temp 38 mmHg (35-46) Arterial Blood pO2 at Patient Temp 72 mmHg (65-108) Arterial Blood HCO3 25 mmol/L (21-28) Arterial Blood Base Excess 1 mmol/L (-3-3) FiO2 70 Glucose (Fingerstick) 147 mg/dL (70-99) 147 mg/dL (70-99) Vancomycin Level Trough 12.4 mcg/mL (10.0-20.0) Vancomycin Last Dose Date 11/01/16 Vancomycin Last Dose Time 1400 Test 11/03/16 05:50 11/03/16 08:35 11/03/16 09:45 Glucose (Fingerstick) 127 mg/dL (70-99) O2 Saturation 94 % (92-99) Arterial Blood pH 7.41 (7.35-7.45) Arterial Blood pCO2 at Patient Temp 41 mmHg (35-46) Arterial Blood pO2 at Patient Temp 74 mmHg (65-108) Arterial Blood HCO3 26 mmol/L (21-28) Arterial Blood Base Excess 1 mmol/L (-3-3) FiO2 70 Sodium Level 148 mmol/L (136-145) Potassium Level 3.8 mmol/L (3.5-5.1) Chloride Level 112 mmol/L (98-107) Carbon Dioxide Level 26 mmol/L (21-32) Anion Gap 10 (6-14) Blood Urea Nitrogen 44 mg/dL (7-20) Creatinine 1.7 mg/dL (0.6-1.0) Estimated GFR (Cockcroft-Gault) 36.7 Glucose Level 129 mg/dL (70-99) Calcium Level 7.5 mg/dL (8.5-10.1) Laboratory Tests Test 11/02/16 11:45 11/02/16 13:25 11/03/16 00:13 11/03/16 05:50 Glucose (Fingerstick) 147 mg/dL (70-99) 147 mg/dL (70-99) 127 mg/dL (70-99) Vancomycin Level Trough 12.4 mcg/mL (10.0-20.0) Vancomycin Last Dose Date 11/01/16 Vancomycin Last Dose Time 1400 Test 11/03/16 08:35 11/03/16 09:45 O2 Saturation 94 % (92-99) Arterial Blood pH 7.41 (7.35-7.45) Arterial Blood pCO2 at Patient Temp 41 mmHg (35-46) Arterial Blood pO2 at Patient Temp 74 mmHg (65-108) Arterial Blood HCO3 26 mmol/L (21-28) Arterial Blood Base Excess 1 mmol/L (-3-3) FiO2 70 Sodium Level 148 mmol/L (136-145) Potassium Level 3.8 mmol/L (3.5-5.1) Chloride Level 112 mmol/L (98-107) Carbon Dioxide Level 26 mmol/L (21-32) Anion Gap 10 (6-14) Blood Urea Nitrogen 44 mg/dL (7-20) Creatinine 1.7 mg/dL (0.6-1.0) Estimated GFR (Cockcroft-Gault) 36.7 Glucose Level 129 mg/dL (70-99) Calcium Level 7.5 mg/dL (8.5-10.1) Medications Active Scripts Medications Dose Route/Sig Max Daily Dose Days Date Category Trazodone Hcl 100 Mg Tablet 100 Mg PO HS 10/31/16 Reported Polyethylene Glycol 3350 255 Gm Powder 17 Gm PO DAILY 10/31/16 Reported Olanzapine 20 Mg Tablet 2 Tab PO QHS 10/31/16 Reported Montelukast Sodium Tablet (Montelukast Sodium) 10 Mg Tablet 10 Mg PO HS 10/31/16 Reported Meloxicam 15 Mg Tablet 1 Tab PO DAILY 10/31/16 Reported Losartan Potassium 50 Mg Tablet 50 Mg PO DAILY 10/31/16 Reported Lorazepam 1 Mg Tablet 1 Mg PO HS 10/31/16 Reported Lasix (Furosemide) 40 Mg Tablet 40 Mg PO PRN DAILY 10/31/16 Reported Hydrochlorothiazide Tablet (Hydrochlorothiazide) 25 Mg Tablet 25 Mg PO DAILY 10/31/16 Reported Folic Acid 1 Mg Tablet 1 Mg PO DAILY 10/31/16 Reported Fluoxetine Hcl 40 Mg Capsule 40 Mg PO DAILY 10/31/16 Reported Famotidine 20 Mg Tablet 20 Mg PO BID 10/31/16 Reported Duoneb 0.5-3(2.5) Mg/3 Ml (Albuterol/Ipratropium) 3 Ml Ampul.neb 3 Ml NEB QID 10/31/16 Reported Docusate Sodium 100 Mg Capsule 1 Cap PO BID 10/31/16 Reported Clonidine Hcl 0.1 Mg Tablet 0.1 Mg PO QID 10/31/16 Reported Cetirizine Hcl 10 Mg Tablet 1 Tab PO DAILY 10/31/16 Reported Comments IMPRESSION: Stable cardiomegaly. Persistent infiltrates likely reflecting congestive heart failure slight stable to slightly worse. Appropriately positioned endotracheal and nasogastric tubes. Slight volume loss at the left lung base likely reflecting atelectasis Impression . A/C HYPERCAPNIA HYPOXEMIC RESP FAILURE MULTIFACTORIAL FAILED BIPAP INTUBATED ACUTE HEART FAILURE SUSPECT DIASTOLIC TALHA/OHS ACUTE RENAL FAILURE MORBID OBESITY FEVER POSSIBLE PNEUMONIA GRAM NEG/GRAM POS POSSIBLE SEPSIS/FEVER Plan . AC MODE, I PERSONALLY INCREASED PEEP TO 10 , CONT FIO2 TITRATION, NOT READY FOR WEANING, KEEP I,O, ANTIBX PER ID DVT AND GI PROPH CARD CONSULTED WILL DC IV FLUIDS MAY NEED LASIX DISCUSSED W RN, RT MONICA AMES MD Nov 03, 2016 10:37
[2016-11-03] MEDS: VANCOMYCIN PER PHARMACY MC PRN (12:19)
[2016-11-03] MEDS ORDERED: METOCLOPRAMIDE HCL 10 MG/2 ML VIAL. IV ONE (15:45)
--- NOTE | 2016-11-03 16:16 | RAD ---
INDICATION: No Bowel Movement COMPARISON: 10/31/2016 IMPRESSION: 2 views of abdomen obtained. There is an enteric tube with tip in the upper abdomen near midline, likely in stomach. Degenerative changes of spine. Degenerative changes hips. Air scattered throughout the large and small bowel in a nonspecific pattern.
[2016-11-03] MEDS: FAMOTIDINE 20 MG/2 ML VIAL IVP SCH (21:00)
[2016-11-04] VITALS (22 sets, daily range): BP systolic 86–117; BP diastolic 54–69
[2016-11-04] MEDS: PIPERACILLIN/TAZOBACTAM 4.5 GM in IV NORMAL SALINE 100ML 100 ML IV SCH ×5 (00:08→23:30)
[2016-11-04] MEDS: VANCOMYCIN 1.75 GM in IV NORMAL SALINE 500ML BAG 500 ML IV SCH ×2 (01:55→22:22)
[2016-11-04] MEDS: MIDAZOLAM PREMIX 100 ML IV PRN ×2 (04:36→14:28)
[2016-11-04] MEDS: HEPARIN PF for SUB-Q USE 5,000 UNIT/0.5 ML VIAL. SQ SCH ×3 (05:53→21:42)
[2016-11-04 06:00] LABS: EOS % 0 % (0-3); HEMATOCRIT 33.5 % (36.0-47.0); HEMOGLOBIN 10.3 g/dL (12.0-15.5); LYMPH % 19 % (24-48); MEAN CORPUSCULAR HEMOGLOBIN 29 pg (25-35); MEAN CORPUSCULAR HGB CONC 31 g/dL (31-37); MEAN CORPUSCULAR VOLUME 92 fL (79-100); MONO % 5 % (0-9); NEUT % 76 % (31-73); PLATELET COUNT 249 x10^3/uL (140-400); RED BLOOD COUNT 3.63 x10^6/uL (3.50-5.40); RED CELL DISTRIBUTION WIDTH 16.4 % (11.5-14.5); WHITE BLOOD COUNT 10.9 x10^3/uL (4.0-11.0)
[2016-11-04 06:01] LABS: BASO % 0 % (0-3)
[2016-11-04 06:13] LABS: CALCIUM 7.4 mg/dL (8.5-10.1); CREATININE 1.2 mg/dL (0.6-1.0); GFR 54.9
[2016-11-04 06:16] LABS: POTASSIUM 4.6 mmol/L (3.5-5.1)
[2016-11-04] MEDS: IV NORMAL SALINE 1000ML BAG 1,000 ML IV SCH ×2 (07:45→20:15)
[2016-11-04] MEDS: VANCOMYCIN PER PHARMACY MC PRN ×2 (07:51→23:32)
[2016-11-04] MEDS: IPRATRPIUM/ALBUTEROL 0.5/2.5MG 3 ML NEBU. NEB SCH ×4 (08:25→19:34)
[2016-11-04 08:36] LABS: HCO3 ABG 26 mmol/L (21-28); PCO2 ABG 44 mmHg (35-46); PH ABG 7.38 (7.35-7.45); PO2 ABG 75 mmHg (65-108); SAT O2 ABG 94 % (92-99)
[2016-11-04 08:38] LABS: FIO2 ABG 70
--- NOTE | 2016-11-04 09:36 | RAD ---
Indication respiratory failure. A single view of the chest was obtained and is compared to a study one day earlier. Endotracheal tube remains appropriately positioned above the rudy. Nasogastric tube is again seen. Heart size is unchanged. Pulmonary infiltrates persist and appear slightly worse. Findings likely reflect worsening congestive heart failure. An inflammatory component is not entirely excluded. There are bilateral pleural effusions. IMPRESSION: Slight interval worsening in pulmonary infiltrates likely reflecting worsening congestive heart failure
--- NOTE | 2016-11-04 10:20 | PDOC ---
PULMONARY PROGRESS NOTES Subjective PT SEDATED ON VERSED FENTANYL, ON PEEP 10, FIO2 60%, small ett secretion INTUBATED 10/31 SEC TO FAILURE ON BIPAP DECREASE SAT Vitals Vital Signs Date Time Temp Pulse Resp B/P (MAP) Pulse Ox O2 Delivery O2 Flow Rate FiO2 11/04/16 08:25 94 Ventilator 11/04/16 07:00 101.3 91 15 97/59 (72) 101.3 11/04/16 06:00 3.0 Comments ros discussed w rn, as mentioned as above other sys otherwise neg HEENT: Other (nc at perrl, orally intubated, nose clear neck + jvd, no lap, no thyromegaly) Lungs: Crackles Cardiovascular: S1, S2 Abdomen: Soft, Non-tender Extremities: Other (EDEMA) Skin: Warm Labs Laboratory Tests Test 11/02/16 11:45 11/02/16 13:25 11/03/16 00:13 11/03/16 05:50 Glucose (Fingerstick) 147 mg/dL (70-99) 147 mg/dL (70-99) 127 mg/dL (70-99) Vancomycin Level Trough 12.4 mcg/mL (10.0-20.0) Vancomycin Last Dose Date 11/01/16 Vancomycin Last Dose Time 1400 Test 11/03/16 08:35 11/03/16 09:45 11/04/16 00:10 11/04/16 04:30 O2 Saturation 94 % (92-99) Arterial Blood pH 7.41 (7.35-7.45) Arterial Blood pCO2 at Patient Temp 41 mmHg (35-46) Arterial Blood pO2 at Patient Temp 74 mmHg (65-108) Arterial Blood HCO3 26 mmol/L (21-28) Arterial Blood Base Excess 1 mmol/L (-3-3) FiO2 70 Sodium Level 148 mmol/L (136-145) 150 mmol/L (136-145) Potassium Level 3.8 mmol/L (3.5-5.1) 4.6 mmol/L (3.5-5.1) Chloride Level 112 mmol/L (98-107) 115 mmol/L (98-107) Carbon Dioxide Level 26 mmol/L (21-32) 24 mmol/L (21-32) Anion Gap 10 (6-14) 11 (6-14) Blood Urea Nitrogen 44 mg/dL (7-20) 35 mg/dL (7-20) Creatinine 1.7 mg/dL (0.6-1.0) 1.2 mg/dL (0.6-1.0) Estimated GFR (Cockcroft-Gault) 36.7 54.9 Glucose Level 129 mg/dL (70-99) 132 mg/dL (70-99) Calcium Level 7.5 mg/dL (8.5-10.1) 7.4 mg/dL (8.5-10.1) Glucose (Fingerstick) 127 mg/dL (70-99) White Blood Count 10.9 x10^3/uL (4.0-11.0) Red Blood Count 3.63 x10^6/uL (3.50-5.40) Hemoglobin 10.3 g/dL (12.0-15.5) Hematocrit 33.5 % (36.0-47.0) Mean Corpuscular Volume 92 fL (79-100) Mean Corpuscular Hemoglobin 29 pg (25-35) Mean Corpuscular Hemoglobin Concent 31 g/dL (31-37) Red Cell Distribution Width 16.4 % (11.5-14.5) Platelet Count 249 x10^3/uL (140-400) Neutrophils (%) (Auto) 76 % (31-73) Lymphocytes (%) (Auto) 19 % (24-48) Monocytes (%) (Auto) 5 % (0-9) Eosinophils (%) (Auto) 0 % (0-3) Basophils (%) (Auto) 0 % (0-3) Neutrophils # (Auto) 8.2 x10^3uL (1.8-7.7) Lymphocytes # (Auto) 2.0 x10^3/uL (1.0-4.8) Monocytes # (Auto) 0.6 x10^3/uL (0.0-1.1) Eosinophils # (Auto) 0.0 x10^3/uL (0.0-0.7) Basophils # (Auto) 0.0 x10^3/uL (0.0-0.2) Creatine Kinase 3036 U/L (26-192) Test 11/04/16 08:00 O2 Saturation 94 % (92-99) Arterial Blood pH 7.38 (7.35-7.45) Arterial Blood pCO2 at Patient Temp 44 mmHg (35-46) Arterial Blood pO2 at Patient Temp 75 mmHg (65-108) Arterial Blood HCO3 26 mmol/L (21-28) Arterial Blood Base Excess 0 mmol/L (-3-3) FiO2 70 Laboratory Tests Test 11/04/16 00:10 11/04/16 04:30 11/04/16 08:00 Glucose (Fingerstick) 127 mg/dL (70-99) White Blood Count 10.9 x10^3/uL (4.0-11.0) Red Blood Count 3.63 x10^6/uL (3.50-5.40) Hemoglobin 10.3 g/dL (12.0-15.5) Hematocrit 33.5 % (36.0-47.0) Mean Corpuscular Volume 92 fL (79-100) Mean Corpuscular Hemoglobin 29 pg (25-35) Mean Corpuscular Hemoglobin Concent 31 g/dL (31-37) Red Cell Distribution Width 16.4 % (11.5-14.5) Platelet Count 249 x10^3/uL (140-400) Neutrophils (%) (Auto) 76 % (31-73) Lymphocytes (%) (Auto) 19 % (24-48) Monocytes (%) (Auto) 5 % (0-9) Eosinophils (%) (Auto) 0 % (0-3) Basophils (%) (Auto) 0 % (0-3) Neutrophils # (Auto) 8.2 x10^3uL (1.8-7.7) Lymphocytes # (Auto) 2.0 x10^3/uL (1.0-4.8) Monocytes # (Auto) 0.6 x10^3/uL (0.0-1.1) Eosinophils # (Auto) 0.0 x10^3/uL (0.0-0.7) Basophils # (Auto) 0.0 x10^3/uL (0.0-0.2) Sodium Level 150 mmol/L (136-145) Potassium Level 4.6 mmol/L (3.5-5.1) Chloride Level 115 mmol/L (98-107) Carbon Dioxide Level 24 mmol/L (21-32) Anion Gap 11 (6-14) Blood Urea Nitrogen 35 mg/dL (7-20) Creatinine 1.2 mg/dL (0.6-1.0) Estimated GFR (Cockcroft-Gault) 54.9 Glucose Level 132 mg/dL (70-99) Calcium Level 7.4 mg/dL (8.5-10.1) Creatine Kinase 3036 U/L (26-192) O2 Saturation 94 % (92-99) Arterial Blood pH 7.38 (7.35-7.45) Arterial Blood pCO2 at Patient Temp 44 mmHg (35-46) Arterial Blood pO2 at Patient Temp 75 mmHg (65-108) Arterial Blood HCO3 26 mmol/L (21-28) Arterial Blood Base Excess 0 mmol/L (-3-3) FiO2 70 Medications Active Scripts Medications Dose Route/Sig Max Daily Dose Days Date Category Trazodone Hcl 100 Mg Tablet 100 Mg PO HS 10/31/16 Reported Polyethylene Glycol 3350 255 Gm Powder 17 Gm PO DAILY 10/31/16 Reported Olanzapine 20 Mg Tablet 2 Tab PO QHS 10/31/16 Reported Montelukast Sodium Tablet (Montelukast Sodium) 10 Mg Tablet 10 Mg PO HS 10/31/16 Reported Meloxicam 15 Mg Tablet 1 Tab PO DAILY 10/31/16 Reported Losartan Potassium 50 Mg Tablet 50 Mg PO DAILY 10/31/16 Reported Lorazepam 1 Mg Tablet 1 Mg PO HS 10/31/16 Reported Lasix (Furosemide) 40 Mg Tablet 40 Mg PO PRN DAILY 10/31/16 Reported Hydrochlorothiazide Tablet (Hydrochlorothiazide) 25 Mg Tablet 25 Mg PO DAILY 10/31/16 Reported Folic Acid 1 Mg Tablet 1 Mg PO DAILY 10/31/16 Reported Fluoxetine Hcl 40 Mg Capsule 40 Mg PO DAILY 10/31/16 Reported Famotidine 20 Mg Tablet 20 Mg PO BID 10/31/16 Reported Duoneb 0.5-3(2.5) Mg/3 Ml (Albuterol/Ipratropium) 3 Ml Ampul.neb 3 Ml NEB QID 10/31/16 Reported Docusate Sodium 100 Mg Capsule 1 Cap PO BID 10/31/16 Reported Clonidine Hcl 0.1 Mg Tablet 0.1 Mg PO QID 10/31/16 Reported Cetirizine Hcl 10 Mg Tablet 1 Tab PO DAILY 10/31/16 Reported Comments reviewed, cxr, ett ok, b lat infilt worse. Impression . A/C HYPERCAPNIA HYPOXEMIC RESP FAILURE MULTIFACTORIAL FAILED BIPAP INTUBATED ACUTE HEART FAILURE SUSPECT DIASTOLIC TALHA/OHS ACUTE RENAL FAILURE MORBID OBESITY FEVER POSSIBLE PNEUMONIA GRAM NEG/GRAM POS POSSIBLE SEPSIS/FEVER Plan . AC MODE, I PERSONALLY INCREASED PEEP TO 12 , CONT FIO2 TITRATION, NOT READY FOR WEANING, KEEP I<O, lasix 20 mg iv now, monitor k, cr ANTIBX PER ID DVT AND GI PROPH CARD CONSULTED WILL DC IV FLUIDS DISCUSSED W RN, RT MONICA AMES MD Nov 04, 2016 10:20
[2016-11-04] MEDS ORDERED: FUROSEMIDE 20 MG/2 ML VIAL. IVP ONE (10:30)
[2016-11-04] MEDS: CHLORHEXIDINE 0.12% 15 ML MOUTHWASH. MM SCH ×2 (10:54→20:41)
--- NOTE | 2016-11-04 11:06 | PDOC ---
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 clean Labs Lab Laboratory Tests Test 11/04/16 00:10 11/04/16 04:30 11/04/16 08:00 Glucose (Fingerstick) 127 mg/dL (70-99) White Blood Count 10.9 x10^3/uL (4.0-11.0) Red Blood Count 3.63 x10^6/uL (3.50-5.40) Hemoglobin 10.3 g/dL (12.0-15.5) Hematocrit 33.5 % (36.0-47.0) Mean Corpuscular Volume 92 fL (79-100) Mean Corpuscular Hemoglobin 29 pg (25-35) Mean Corpuscular Hemoglobin Concent 31 g/dL (31-37) Red Cell Distribution Width 16.4 % (11.5-14.5) Platelet Count 249 x10^3/uL (140-400) Neutrophils (%) (Auto) 76 % (31-73) Lymphocytes (%) (Auto) 19 % (24-48) Monocytes (%) (Auto) 5 % (0-9) Eosinophils (%) (Auto) 0 % (0-3) Basophils (%) (Auto) 0 % (0-3) Neutrophils # (Auto) 8.2 x10^3uL (1.8-7.7) Lymphocytes # (Auto) 2.0 x10^3/uL (1.0-4.8) Monocytes # (Auto) 0.6 x10^3/uL (0.0-1.1) Eosinophils # (Auto) 0.0 x10^3/uL (0.0-0.7) Basophils # (Auto) 0.0 x10^3/uL (0.0-0.2) Sodium Level 150 mmol/L (136-145) Potassium Level 4.6 mmol/L (3.5-5.1) Chloride Level 115 mmol/L (98-107) Carbon Dioxide Level 24 mmol/L (21-32) Anion Gap 11 (6-14) Blood Urea Nitrogen 35 mg/dL (7-20) Creatinine 1.2 mg/dL (0.6-1.0) Estimated GFR (Cockcroft-Gault) 54.9 Glucose Level 132 mg/dL (70-99) Calcium Level 7.4 mg/dL (8.5-10.1) Creatine Kinase 3036 U/L (26-192) O2 Saturation 94 % (92-99) Arterial Blood pH 7.38 (7.35-7.45) Arterial Blood pCO2 at Patient Temp 44 mmHg (35-46) Arterial Blood pO2 at Patient Temp 75 mmHg (65-108) Arterial Blood HCO3 26 mmol/L (21-28) Arterial Blood Base Excess 0 mmol/L (-3-3) FiO2 70 CXR IMPRESSION: Slight interval worsening in pulmonary infiltrates likely reflecting worsening congestive heart failure Micro SPUTUM CULT Final Routine respiratory kasey BLOOD CULTURE Preliminary NO GROWTH SO FAR URINE CULTURE RES 1 Final Klebsiella pneumoniae Antibiotic RSLT#1 Amoxicillin/Clavulanic Acid S Ampicillin R Cefepime S Ceftriaxone S Cefuroxime S Cephalothin S Ciprofloxacin S Ertapenem S Gentamicin S Imipenem S Levofloxacin S Nitrofurantoin S Piperacillin S Tetracycline S Tobramycin S Trimethoprim/Sulfa S Objective Assessment Klebsiella UTI, POA Fever Leukocytosis, trending down Respiratory failure Á[place] pulmonary infiltrate, CHF vs pneumonia Acute renal failure Schizophrenia Plan Plan of Care vanc, Zosyn and Levaquin f/u cultures Patient seen and examined. Chart reviewed. Case discussed with SOLAR INSTALLATION MANAGER. Agree with above plan. DAVE HERNANDEZ APRN Nov 04, 2016 11:05 STEVEN RODRIGUEZ MD Nov 04, 2016 16:54
--- NOTE | 2016-11-04 14:07 | PDOC ---
PROGRESS NOTES Chief Complaint Chief Complaint Acute hypoxic and hypercapnic resp failure with HAP, Failed on bipap and intubation 10/31 Fever and leukocytosis: persistent Pseudomonas urinary tract infection, present on admission Healthcare associated pneumonia possible gram-negative rods COPD morbid obesity Congestive heart failure , LV ejection fraction 65% Ckd with jerrod, vasomotor HX of schizophrenia HTN tobaccoism Elevated CPK, unclear etiology Hypernatremia: Monitor PLAN: Continue to have fevers continue IV Zosyn and vancomycin and the Levaquin. Vancomycin renal dosing, Continue IV hydration with saline, Making good urine, It as needed Reglan for increased to feeds Continue to feeds If patient shows any signs of worsening fevers we will get a CT of the abdomen and pelvis Chest x-ray reveals reviewed one-time dose of IV Lasix monitor creatinine Monitor CPK, consult nephrology On mechanical ventilation, on Versed and fentanyl PEEP increased DVT prophylaxis with Lovenox Labs reviewed Discussed with RN Periodic nebulizations as per respiratory therapy. Prognosis guarded, condition critical. Place PICC line No immediate family members available. History of Present Illness History of Present Illness no BM, able to pass flatus Distended abdomen fevers persistent Vitals Vitals Vital Signs Date Time Temp Pulse Resp B/P (MAP) Pulse Ox O2 Delivery O2 Flow Rate FiO2 11/04/16 12:19 94 Ventilator 11/04/16 07:00 101.3 91 15 97/59 (72) 101.3 11/04/16 06:00 3.0 Physical Exam Physical Exam intubated, sedated Heart: Regular rate (SR), Normal S1, Normal S2, Other (difficult to note due to adventitious sounds and bipap) Lungs: Crackles Abdomen: Soft, No tenderness, Other (obese, mild distended) Extremities: No cyanosis, Other (1+ bilateral LE pitting edema) Skin: No breakdown, No significant lesion Labs LABS Laboratory Tests Test 11/04/16 00:10 11/04/16 04:30 11/04/16 08:00 Glucose (Fingerstick) 127 mg/dL (70-99) White Blood Count 10.9 x10^3/uL (4.0-11.0) Red Blood Count 3.63 x10^6/uL (3.50-5.40) Hemoglobin 10.3 g/dL (12.0-15.5) Hematocrit 33.5 % (36.0-47.0) Mean Corpuscular Volume 92 fL (79-100) Mean Corpuscular Hemoglobin 29 pg (25-35) Mean Corpuscular Hemoglobin Concent 31 g/dL (31-37) Red Cell Distribution Width 16.4 % (11.5-14.5) Platelet Count 249 x10^3/uL (140-400) Neutrophils (%) (Auto) 76 % (31-73) Lymphocytes (%) (Auto) 19 % (24-48) Monocytes (%) (Auto) 5 % (0-9) Eosinophils (%) (Auto) 0 % (0-3) Basophils (%) (Auto) 0 % (0-3) Neutrophils # (Auto) 8.2 x10^3uL (1.8-7.7) Lymphocytes # (Auto) 2.0 x10^3/uL (1.0-4.8) Monocytes # (Auto) 0.6 x10^3/uL (0.0-1.1) Eosinophils # (Auto) 0.0 x10^3/uL (0.0-0.7) Basophils # (Auto) 0.0 x10^3/uL (0.0-0.2) Sodium Level 150 mmol/L (136-145) Potassium Level 4.6 mmol/L (3.5-5.1) Chloride Level 115 mmol/L (98-107) Carbon Dioxide Level 24 mmol/L (21-32) Anion Gap 11 (6-14) Blood Urea Nitrogen 35 mg/dL (7-20) Creatinine 1.2 mg/dL (0.6-1.0) Estimated GFR (Cockcroft-Gault) 54.9 Glucose Level 132 mg/dL (70-99) Calcium Level 7.4 mg/dL (8.5-10.1) Creatine Kinase 3036 U/L (26-192) O2 Saturation 94 % (92-99) Arterial Blood pH 7.38 (7.35-7.45) Arterial Blood pCO2 at Patient Temp 44 mmHg (35-46) Arterial Blood pO2 at Patient Temp 75 mmHg (65-108) Arterial Blood HCO3 26 mmol/L (21-28) Arterial Blood Base Excess 0 mmol/L (-3-3) FiO2 70 Comment Review of Relevant I have reviewed the following items asif (where applicable) has been applied. Labs Laboratory Tests Test 7/21/17 00:13 11/03/16 05:50 11/03/16 08:35 11/03/16 09:45 Glucose (Fingerstick) 147 mg/dL (70-99) 127 mg/dL (70-99) O2 Saturation 94 % (92-99) Arterial Blood pH 7.41 (7.35-7.45) Arterial Blood pCO2 at Patient Temp 41 mmHg (35-46) Arterial Blood pO2 at Patient Temp 74 mmHg (65-108) Arterial Blood HCO3 26 mmol/L (21-28) Arterial Blood Base Excess 1 mmol/L (-3-3) FiO2 70 Sodium Level 148 mmol/L (136-145) Potassium Level 3.8 mmol/L (3.5-5.1) Chloride Level 112 mmol/L (98-107) Carbon Dioxide Level 26 mmol/L (21-32) Anion Gap 10 (6-14) Blood Urea Nitrogen 44 mg/dL (7-20) Creatinine 1.7 mg/dL (0.6-1.0) Estimated GFR (Cockcroft-Gault) 36.7 Glucose Level 129 mg/dL (70-99) Calcium Level 7.5 mg/dL (8.5-10.1) Test 11/04/16 00:10 11/04/16 04:30 11/04/16 08:00 Glucose (Fingerstick) 127 mg/dL (70-99) White Blood Count 10.9 x10^3/uL (4.0-11.0) Red Blood Count 3.63 x10^6/uL (3.50-5.40) Hemoglobin 10.3 g/dL (12.0-15.5) Hematocrit 33.5 % (36.0-47.0) Mean Corpuscular Volume 92 fL (79-100) Mean Corpuscular Hemoglobin 29 pg (25-35) Mean Corpuscular Hemoglobin Concent 31 g/dL (31-37) Red Cell Distribution Width 16.4 % (11.5-14.5) Platelet Count 249 x10^3/uL (140-400) Neutrophils (%) (Auto) 76 % (31-73) Lymphocytes (%) (Auto) 19 % (24-48) Monocytes (%) (Auto) 5 % (0-9) Eosinophils (%) (Auto) 0 % (0-3) Basophils (%) (Auto) 0 % (0-3) Neutrophils # (Auto) 8.2 x10^3uL (1.8-7.7) Lymphocytes # (Auto) 2.0 x10^3/uL (1.0-4.8) Monocytes # (Auto) 0.6 x10^3/uL (0.0-1.1) Eosinophils # (Auto) 0.0 x10^3/uL (0.0-0.7) Basophils # (Auto) 0.0 x10^3/uL (0.0-0.2) Sodium Level 150 mmol/L (136-145) Potassium Level 4.6 mmol/L (3.5-5.1) Chloride Level 115 mmol/L (98-107) Carbon Dioxide Level 24 mmol/L (21-32) Anion Gap 11 (6-14) Blood Urea Nitrogen 35 mg/dL (7-20) Creatinine 1.2 mg/dL (0.6-1.0) Estimated GFR (Cockcroft-Gault) 54.9 Glucose Level 132 mg/dL (70-99) Calcium Level 7.4 mg/dL (8.5-10.1) Creatine Kinase 3036 U/L (26-192) O2 Saturation 94 % (92-99) Arterial Blood pH 7.38 (7.35-7.45) Arterial Blood pCO2 at Patient Temp 44 mmHg (35-46) Arterial Blood pO2 at Patient Temp 75 mmHg (65-108) Arterial Blood HCO3 26 mmol/L (21-28) Arterial Blood Base Excess 0 mmol/L (-3-3) FiO2 70 Laboratory Tests Test 11/04/16 00:10 11/04/16 04:30 11/04/16 08:00 Glucose (Fingerstick) 127 mg/dL (70-99) White Blood Count 10.9 x10^3/uL (4.0-11.0) Red Blood Count 3.63 x10^6/uL (3.50-5.40) Hemoglobin 10.3 g/dL (12.0-15.5) Hematocrit 33.5 % (36.0-47.0) Mean Corpuscular Volume 92 fL (79-100) Mean Corpuscular Hemoglobin 29 pg (25-35) Mean Corpuscular Hemoglobin Concent 31 g/dL (31-37) Red Cell Distribution Width 16.4 % (11.5-14.5) Platelet Count 249 x10^3/uL (140-400) Neutrophils (%) (Auto) 76 % (31-73) Lymphocytes (%) (Auto) 19 % (24-48) Monocytes (%) (Auto) 5 % (0-9) Eosinophils (%) (Auto) 0 % (0-3) Basophils (%) (Auto) 0 % (0-3) Neutrophils # (Auto) 8.2 x10^3uL (1.8-7.7) Lymphocytes # (Auto) 2.0 x10^3/uL (1.0-4.8) Monocytes # (Auto) 0.6 x10^3/uL (0.0-1.1) Eosinophils # (Auto) 0.0 x10^3/uL (0.0-0.7) Basophils # (Auto) 0.0 x10^3/uL (0.0-0.2) Sodium Level 150 mmol/L (136-145) Potassium Level 4.6 mmol/L (3.5-5.1) Chloride Level 115 mmol/L (98-107) Carbon Dioxide Level 24 mmol/L (21-32) Anion Gap 11 (6-14) Blood Urea Nitrogen 35 mg/dL (7-20) Creatinine 1.2 mg/dL (0.6-1.0) Estimated GFR (Cockcroft-Gault) 54.9 Glucose Level 132 mg/dL (70-99) Calcium Level 7.4 mg/dL (8.5-10.1) Creatine Kinase 3036 U/L (26-192) O2 Saturation 94 % (92-99) Arterial Blood pH 7.38 (7.35-7.45) Arterial Blood pCO2 at Patient Temp 44 mmHg (35-46) Arterial Blood pO2 at Patient Temp 75 mmHg (65-108) Arterial Blood HCO3 26 mmol/L (21-28) Arterial Blood Base Excess 0 mmol/L (-3-3) FiO2 70 Microbiology 11/02/16 Blood Culture - Preliminary, Resulted NO GROWTH AFTER 2 DAYS 11/01/16 Sputum Culture - Final, Complete 11/01/16 Sputum Result 1 - Final, Complete 10/31/16 Urine Culture - Final, Complete 10/31/16 Urine Culture Result 1 (ISAIAS) - Final, Complete 10/31/16 Antimicrobic Susceptibility - Final, Complete Medications Current Medications Methylprednisolone Sodium Succinate (SOLU-Medrol 125MG VIAL) 125 mg 1X ONCE IV Last administered on 10/31/16 11:18; Start 10/31/16 at 11:00; Stop 10/31/16 at 11:01; Status DC Albuterol/ Ipratropium (Duoneb) 3 ml 1X ONCE NEB Last administered on 11:00; Start 10/31/16 at 11:00; Stop 10/31/16 at 11:01; Status DC Furosemide (Lasix) 40 mg 1X ONCE IVP Last administered on 10/31/16 11:17; Start 10/31/16 at 11:15; Stop 10/31/16 at 11:16; Status DC Vancomycin HCl (Vanco Per Pharmacy) 1 each PRN DAILY PRN MC SEE COMMENTS Last administered on 11/04/16 07:51; Start 10/31/16 at 11:30 Piperacillin Sod/ Tazobactam Sod (Zosyn Per Pharmacy) 1 each PRN DAILY PRN MC SEE COMMENTS; Start 10/31/16 at 11:30; Stop 11/02/16 at 08:44; Status DC Levofloxacin/ Dextrose (Levaquin Per Pharmacy) 1 each PRN DAILY PRN MC SEE COMMENTS; Start 10/31/16 at 11:30; Stop 10/31/16 at 12:57; Status DC Vancomycin HCl 2 gm/Sodium Chloride 500 ml @ 250 mls/hr 1X ONCE IV Last administered on 10/31/16 14:30; Start 10/31/16 at 11:30; Stop 10/31/16 at 13:29 ; Status DC Levofloxacin/ Dextrose 150 ml @ 100 mls/hr ONCE ONCE IV Last administered on 10/31/16 12:45; Start 10/31/16 at 11:30; Stop 10/31/16 at 12:59; Status DC Piperacillin Sod/ Tazobactam Sod 3.375 gm/Sodium Chloride 50 ml @ 100 mls/hr ONCE ONCE IV Last administered on 10/31/16 11:38; Start 10/31/16 at 11:45; Stop 10/31/16 at 12:14; Status DC Levofloxacin/ Dextrose 150 ml @ 100 mls/hr Q48H IV Last administered on 10:54; Start 11/02/16 at 10:00 Piperacillin Sod/ Tazobactam Sod 3.375 gm/Sodium Chloride 50 ml @ 100 mls/hr Q6HRS IV Last administered on 11/02/16 05:44; Start 10/31/16 at 18:00; Stop at 08:47; Status DC Acetaminophen (Tylenol) 650 mg PRN Q6HRS PRN PO FEVER Last administered on 11/01 20:26; Start 10/31/16 at 15:15; Stop 11/02/16 at 07:45; Status DC Ondansetron HCl (Zofran) 4 mg PRN Q6HRS PRN IV NAUSEA/VOMITING; Start 10/31/16 at 15:15 Morphine Sulfate 2 mg PRN Q2HR PRN IV PAIN Last administered on 11/01/16 15:48 ; Start 10/31/16 at 15:15 Tramadol HCl (Ultram) 50 mg PRN Q6HRS PRN PO PAIN; Start 10/31/16 at 15:15 Hydralazine HCl (Apresoline) 10 mg PRN Q4HRS PRN IVP ELEVATED BP, SEE COMMENTS ; Start 10/31/16 at 15:15 Docusate Sodium (Colace) 100 mg PRN DAILY PRN PO CONSTIPATION; Start 10/31/16 at 15:15 Albuterol/ Ipratropium (Duoneb) 3 ml RTQID NEB Last administered on 11/04/16 12:15; Start 10/31/16 at 16:00 Albuterol Sulfate (Ventolin Neb Soln) 2.5 mg PRN Q4HRS PRN NEB SHORTNESS OF BREATH; Start 10/31/16 at 15:15 Heparin Sodium (Porcine) (Heparin Sq) 5,000 unit Q8HRS SQ Last administered on 11/04/16 05:53; Start 10/31/16 at 22:00 Famotidine (Pepcid) 20 mg QHS IVP Last administered on 11/03/16 21:00; Start 10/31/16 at 21:00 Vancomycin HCl 2 gm/Sodium Chloride 500 ml @ 250 mls/hr Q24H IV Last administered on 11/02/16 14:14; Start 11/01/16 at 14:00; Stop 11/02/16 at 14:24 ; Status DC Vancomycin HCl 1 each 1X ONCE MC Last administered on 11/02/16 13:30; Start 11/02/16 at 13:30; Stop 11/02/16 at 13:31; Status DC Sodium Chloride 1,000 ml @ 80 mls/hr [id number] IV Last administered on 08:27; Start 10/31/16 at 16:15 Sodium Chloride 1,000 ml @ 1,000 mls/hr 1X ONCE IV Last administered on 18:04; Start 10/31/16 at 14:00; Stop 10/31/16 at 17:23; Status DC Sodium Chloride 500 ml @ 500 mls/hr 1X ONCE IV Last administered on 17:30; Start 10/31/16 at 17:30; Stop 10/31/16 at 18:29; Status DC Fentanyl Citrate 30 ml @ 0 mls/hr CONT PRN IV PROTOCOL Last administered on 08:46; Start 10/31/16 at 18:30 Propofol 100 ml @ 0 mls/hr CONT PRN IV PER PROTOCOL Last administered on 19:00; Start 10/31/16 at 18:30 Chlorhexidine Gluconate (Peridex) 15 ml BID MM Last administered on 11/04/16 10:54; Start 10/31/16 at 21:00 Artificial Tears (Artificial Tears) 1 drop PRN Q1HR PRN OU DRY EYE; Start 10/31 at 18:30 Midazolam HCl 100 ml @ 0 mls/hr CONT PRN IV PER PROTOCOL Last administered on 04:36; Start 10/31/16 at 18:30 Succinylcholine Chloride (Anectine) 200 mg STK-MED ONCE .ROUTE ; Start 10/31/16 at 18:43; Stop 10/31/16 at 18:44; Status DC Midazolam HCl (Versed) 5 mg STK-MED ONCE .ROUTE ; Start 10/31/16 at 18:45; Stop 10/31/16 at 18:46; Status DC Midazolam HCl (Versed) 5 mg 1X ONCE IV Last administered on 10/31/16 19:30; Start 10/31/16 at 19:30; Stop 10/31/16 at 19:31; Status DC Succinylcholine Chloride (Anectine) 200 mg STK-MED ONCE .ROUTE ; Start 10/31/16 at 18:45; Stop 11/01/16 at 08:13; Status DC Furosemide (Lasix) 20 mg 1X ONCE IVP Last administered on 11/01/16 13:48; Start 11/01/16 at 13:30; Stop 11/01/16 at 13:31; Status DC Sodium Chloride 500 ml @ 500 mls/hr 1X ONCE IV Last administered on 23:09; Start 11/01/16 at 23:15; Stop 11/02/16 at 00:14; Status DC Acetaminophen (Tylenol) 650 mg PRN Q6HRS PRN PEG MILD PAIN / TEMP Last administered on 11/03/16 16:46; Start 11/02/16 at 07:45 Piperacillin Sod/ Tazobactam Sod 4.5 gm/Sodium Chloride 100 ml @ 200 mls/hr Q6HRS IV Last administered on 11/04/16 05:45; Start 11/02/16 at 12:00 Sodium Chloride 500 ml @ 500 mls/hr 1X ONCE IV Last administered on 14:10; Start 11/02/16 at 13:00; Stop 11/02/16 at 13:59; Status DC Sodium Chloride 1,000 ml @ 75 mls/hr [id number] IV ; Start 11/02/16 at 13:00; Stop 11/02/16 at 13:25; Status DC Vancomycin HCl 1.75 gm/Sodium Chloride 500 ml @ 250 mls/hr Q18H IV Last administered on 11/04/16 01:55; Start 11/03/16 at 08:00 Vancomycin HCl 1 each 1X ONCE MC ; Start 11/04/16 at 19:30; Stop 11/04/16 at 19 :31 Metoclopramide HCl (Reglan) 10 mg 1X ONCE IV Last administered on 11/03/16 16 :35; Start 11/03/16 at 15:45; Stop 11/03/16 at 15:46; Status DC Furosemide (Lasix) 20 mg 1X ONCE IVP Last administered on 11/04/16t 10:54; Start 11/04/16 at 10:30; Stop 11/04/16 at 10:31; Status DC Active Scripts Active Reported Trazodone Hcl 100 Mg Tablet 100 Mg PO HS Polyethylene Glycol 3350 255 Gm Powder 17 Gm PO DAILY Olanzapine 20 Mg Tablet 2 Tab PO QHS Montelukast Sodium Tablet (Montelukast Sodium) 10 Mg Tablet 10 Mg PO HS Meloxicam 15 Mg Tablet 1 Tab PO DAILY Losartan Potassium 50 Mg Tablet 50 Mg PO DAILY Lorazepam 1 Mg Tablet 1 Mg PO HS Lasix (Furosemide) 40 Mg Tablet 40 Mg PO PRN DAILY Hydrochlorothiazide Tablet (Hydrochlorothiazide) 25 Mg Tablet 25 Mg PO DAILY Folic Acid 1 Mg Tablet 1 Mg PO DAILY Fluoxetine Hcl 40 Mg Capsule 40 Mg PO DAILY Famotidine 20 Mg Tablet 20 Mg PO BID Duoneb 0.5-3(2.5) Mg/3 Ml (Albuterol/Ipratropium) 3 Ml Ampul.neb 3 Ml NEB QID Docusate Sodium 100 Mg Capsule 1 Cap PO BID Clonidine Hcl 0.1 Mg Tablet 0.1 Mg PO QID Cetirizine Hcl 10 Mg Tablet 1 Tab PO DAILY Vitals/I & O Vital Sign - Last 24 Hours 11/03/16 11/03/16 11/03/16 11/03/16 15:00 15:48 16:00 16:00 Temp 101.4 101.4 Pulse 98 92 Resp 15 26 B/P (MAP) 116/67 (83) 92/59 (70) Pulse Ox 94 93 94 O2 Delivery Ventilator Ventilator Ventilator Mechanical Ventilator 11/03/16 11/03/16 11/03/16 11/03/16 17:00 18:00 18:12 19:00 Temp 100.5 100.5 Pulse 94 93 92 Resp 19 20 11 B/P (MAP) 107/63 (78) 107/59 (75) 99/53 (68) Pulse Ox 95 93 94 94 O2 Delivery Ventilator Ventilator Ventilator Ventilator 11/03/16 11/03/16 11/03/16 11/03/16 19:39 20:00 20:00 21:00 Temp 99.7 99.7 Pulse 87 89 Resp 12 20 B/P (MAP) 95/55 (68) 99/55 (70) Pulse Ox 93 93 93 O2 Delivery Ventilator Mechanical Ventilator Ventilator Ventilator 11/03/16 11/03/16 11/03/16 11/03/16 21:15 22:00 23:24 23:26 Temp 98.8 98.8 98.8 98.8 Pulse 89 85 85 Resp 24 20 20 B/P (MAP) 99/63 (75) 103/66 (78) 103/66 (78) Pulse Ox 94 93 93 93 O2 Delivery Ventilator Ventilator Ventilator Ventilator 11/03/16 11/04/16 11/04/16 11/04/16 23:50 00:00 01:00 02:00 Pulse 84 84 Resp 20 20 B/P (MAP) 106/69 (81) 106/69 (81) Pulse Ox 93 93 93 O2 Delivery Ventilator Mechanical Ventilator Ventilator 11/04/16 11/04/16 11/04/16 11/04/16 02:15 03:00 04:00 04:00 Temp 98.8 98.8 Pulse 84 83 Resp 17 B/P (MAP) 112/67 (82) 97/63 (74) Pulse Ox 94 94 93 O2 Delivery Ventilator Ventilator Mechanical Ventilator Ventilator O2 Flow Rate 11/04/16 11/04/16 11/04/16 11/04/16 04:07 05:00 05:49 06:00 Pulse 85 102 Resp 22 B/P (MAP) 105/61 (76) 117/64 (81) Pulse Ox 94 94 96 96 O2 Delivery Ventilator Ventilator Ventilator Ventilator O2 Flow Rate 3.0 11/04/16 11/04/16 11/04/16 11/04/16 07:00 08:00 08:25 10:30 Temp 101.3 101.3 Pulse 91 Resp 15 B/P (MAP) 97/59 (72) Pulse Ox 92 94 93 O2 Delivery Ventilator Mechanical Ventilator Ventilator Ventilator 11/04/16 12:19 Pulse Ox 94 O2 Delivery Ventilator Intake and Output 11/03/16 11/03/16 11/04/16 15:00 23:00 07:00 Intake Total 760 ml 1445.6 ml 1876.69 ml Output Total 610 ml 745 ml 415 ml Balance 150 ml 700.6 ml 1461.69 ml MATHIEU DUONG MD Nov 04, 2016 14:07
[2016-11-04] MEDS ORDERED: METOCLOPRAMIDE HCL 10 MG/2 ML VIAL. IV ONE (17:15)
[2016-11-04] MEDS: FAMOTIDINE 20 MG/2 ML VIAL IVP SCH (20:39)
[2016-11-05] VITALS (24 sets, daily range): BP systolic 102–133; BP diastolic 60–107
[2016-11-05] MEDS: DOCUSATE SODIUM 100 MG CAPSULE. PO PRN ×2 (00:01→12:04)
[2016-11-05] MEDS: MIDAZOLAM PREMIX 100 ML IV PRN ×2 (03:23→23:20)
[2016-11-05] MEDS: PIPERACILLIN/TAZOBACTAM 4.5 GM in IV NORMAL SALINE 100ML 100 ML IV SCH ×4 (05:44→23:22)
[2016-11-05] MEDS: HEPARIN PF for SUB-Q USE 5,000 UNIT/0.5 ML VIAL. SQ SCH ×3 (05:51→21:45)
[2016-11-05 06:01] LABS: BASO % 1 % (0-3); EOS % 1 % (0-3); HEMATOCRIT 28.6 % (36.0-47.0); HEMOGLOBIN 9.3 g/dL (12.0-15.5); LYMPH # 2.2 x10^3/uL (1.0-4.8); LYMPH % 22 % (24-48); MEAN CORPUSCULAR HEMOGLOBIN 30 pg (25-35); MEAN CORPUSCULAR HGB CONC 33 g/dL (31-37); MEAN CORPUSCULAR VOLUME 91 fL (79-100); MONO % 8 % (0-9); NEUT % 69 % (31-73); PLATELET COUNT 274 x10^3/uL (140-400); RED BLOOD COUNT 3.16 x10^6/uL (3.50-5.40); RED CELL DISTRIBUTION WIDTH 16.1 % (11.5-14.5); WHITE BLOOD COUNT 10.1 x10^3/uL (4.0-11.0)
[2016-11-05 06:17] LABS: CALCIUM 8.3 mg/dL (8.5-10.1); CREATININE 1.2 mg/dL (0.6-1.0); GFR 54.9; POTASSIUM 4.2 mmol/L (3.5-5.1)
--- NOTE | 2016-11-05 08:11 | PDOC2 ---
CONSULT Date of Consult Date of Consult DATE: 11/05/16 TIME: 08:10 Reason for Consult Reason for Consult: ^ed CK Referring Physician Referring Physician: Miguelina Identification/Chief Complaint Chief Complaint resp distress Problems: Source Source: Chart review History of Present Illness Reason for Visit: as dictated Past Medical History Cardiovascular: CHF, HTN Pulmonary: Asthma GI: Constipation, GERD Psych: Depression, Schizophrenia Musculoskeletal: Osteoarthritis ENT: Allergic Rhinitis Past Surgical History Past Surgical History: Other (Unknown) Family History Family History: Family History Unknown Social History <1 pack per day ALCOHOL: none Drugs: None Lives: Longterm Current Medications Current Medications Current Medications Methylprednisolone Sodium Succinate (SOLU-Medrol 125MG VIAL) 125 mg 1X ONCE IV Last administered on 10/31/16 11:18; Start 10/31/16 at 11:00; Stop 10/31/16 at 11:01; Status DC Albuterol/ Ipratropium (Duoneb) 3 ml 1X ONCE NEB Last administered on 11:00; Start 10/31/16 at 11:00; Stop 10/31/16 at 11:01; Status DC Furosemide (Lasix) 40 mg 1X ONCE IVP Last administered on 10/31/16 11:17; Start 10/31/16 at 11:15; Stop 10/31/16 at 11:16; Status DC Vancomycin HCl (Vanco Per Pharmacy) 1 each PRN DAILY PRN MC SEE COMMENTS Last administered on 11/04/16 23:32; Start 10/31/16 at 11:30 Piperacillin Sod/ Tazobactam Sod (Zosyn Per Pharmacy) 1 each PRN DAILY PRN MC SEE COMMENTS; Start 10/31/16 at 11:30; Stop 11/02/16 at 08:44; Status DC Levofloxacin/ Dextrose (Levaquin Per Pharmacy) 1 each PRN DAILY PRN MC SEE COMMENTS; Start 10/31/16 at 11:30; Stop 10/31/16 at 12:57; Status DC Vancomycin HCl 2 gm/Sodium Chloride 500 ml @ 250 mls/hr 1X ONCE IV Last administered on 10/31/16 14:30; Start 10/31/16 at 11:30; Stop 10/31/16 at 13:29 ; Status DC Levofloxacin/ Dextrose 150 ml @ 100 mls/hr ONCE ONCE IV Last administered on 10/31/16 12:45; Start 10/31/16 at 11:30; Stop 10/31/16 at 12:59; Status DC Piperacillin Sod/ Tazobactam Sod 3.375 gm/Sodium Chloride 50 ml @ 100 mls/hr ONCE ONCE IV Last administered on 10/31/16 11:38; Start 10/31/16 at 11:45; Stop 10/31/16 at 12:14; Status DC Levofloxacin/ Dextrose 150 ml @ 100 mls/hr Q48H IV Last administered on 10:54; Start 11/02/16 at 10:00 Piperacillin Sod/ Tazobactam Sod 3.375 gm/Sodium Chloride 50 ml @ 100 mls/hr Q6HRS IV Last administered on 11/02/16 05:44; Start 10/31/16 at 18:00; Stop at 08:47; Status DC Acetaminophen (Tylenol) 650 mg PRN Q6HRS PRN PO FEVER Last administered on 11/01 20:26; Start 10/31/16 at 15:15; Stop 11/02/16 at 07:45; Status DC Ondansetron HCl (Zofran) 4 mg PRN Q6HRS PRN IV NAUSEA/VOMITING; Start 10/31/16 at 15:15 Morphine Sulfate 2 mg PRN Q2HR PRN IV PAIN Last administered on 11/01/16 15:48 ; Start 10/31/16 at 15:15 Tramadol HCl (Ultram) 50 mg PRN Q6HRS PRN PO PAIN; Start 10/31/16 at 15:15 Hydralazine HCl (Apresoline) 10 mg PRN Q4HRS PRN IVP ELEVATED BP, SEE COMMENTS ; Start 10/31/16 at 15:15 Docusate Sodium (Colace) 100 mg PRN DAILY PRN PO CONSTIPATION Last administered on 11/05/16 00:01; Start 10/31/16 at 15:15 Albuterol/ Ipratropium (Duoneb) 3 ml RTQID NEB Last administered on 11/04/16 19:34; Start 10/31/16 at 16:00 Albuterol Sulfate (Ventolin Neb Soln) 2.5 mg PRN Q4HRS PRN NEB SHORTNESS OF BREATH; Start 10/31/16 at 15:15 Heparin Sodium (Porcine) (Heparin Sq) 5,000 unit Q8HRS SQ Last administered on 11/05/16 05:51; Start 10/31/16 at 22:00 Famotidine (Pepcid) 20 mg QHS IVP Last administered on 11/04/16 20:39; Start 10/31/16 at 21:00 Vancomycin HCl 2 gm/Sodium Chloride 500 ml @ 250 mls/hr Q24H IV Last administered on 11/02/16 14:14; Start 11/01/16 at 14:00; Stop 11/02/16 at 14:24 ; Status DC Vancomycin HCl 1 each 1X ONCE MC Last administered on 11/02/16 13:30; Start 11/02/16 at 13:30; Stop 11/02/16 at 13:31; Status DC Sodium Chloride 1,000 ml @ 80 mls/hr [id number] IV Last administered on 08:27; Start 10/31/16 at 16:15 Sodium Chloride 1,000 ml @ 1,000 mls/hr 1X ONCE IV Last administered on 18:04; Start 10/31/16 at 14:00; Stop 10/31/16 at 17:23; Status DC Sodium Chloride 500 ml @ 500 mls/hr 1X ONCE IV Last administered on 17:30; Start 10/31/16 at 17:30; Stop 10/31/16 at 18:29; Status DC Fentanyl Citrate 30 ml @ 0 mls/hr CONT PRN IV PROTOCOL Last administered on 00:08; Start 10/31/16 at 18:30 Propofol 100 ml @ 0 mls/hr CONT PRN IV PER PROTOCOL Last administered on 19:00; Start 10/31/16 at 18:30 Chlorhexidine Gluconate (Peridex) 15 ml BID MM Last administered on 11/04/16 20:41; Start 10/31/16 at 21:00 Artificial Tears (Artificial Tears) 1 drop PRN Q1HR PRN OU DRY EYE; Start 10/31 at 18:30 Midazolam HCl 100 ml @ 0 mls/hr CONT PRN IV PER PROTOCOL Last administered on 03:23; Start 10/31/16 at 18:30 Succinylcholine Chloride (Anectine) 200 mg STK-MED ONCE .ROUTE ; Start 10/31/16 at 18:43; Stop 10/31/16 at 18:44; Status DC Midazolam HCl (Versed) 5 mg STK-MED ONCE .ROUTE ; Start 10/31/16 at 18:45; Stop 10/31/16 at 18:46; Status DC Midazolam HCl (Versed) 5 mg 1X ONCE IV Last administered on 10/31/16 19:30; Start 10/31/16 at 19:30; Stop 10/31/16 at 19:31; Status DC Succinylcholine Chloride (Anectine) 200 mg STK-MED ONCE .ROUTE ; Start 10/31/16 at 18:45; Stop 11/01/16 at 08:13; Status DC Furosemide (Lasix) 20 mg 1X ONCE IVP Last administered on 11/01/16 13:48; Start 11/01/16 at 13:30; Stop 11/01/16 at 13:31; Status DC Sodium Chloride 500 ml @ 500 mls/hr 1X ONCE IV Last administered on 23:09; Start 11/01/16 at 23:15; Stop 11/02/16 at 00:14; Status DC Acetaminophen (Tylenol) 650 mg PRN Q6HRS PRN PEG MILD PAIN / TEMP Last administered on 11/03/16 16:46; Start 11/02/16 at 07:45 Piperacillin Sod/ Tazobactam Sod 4.5 gm/Sodium Chloride 100 ml @ 200 mls/hr Q6HRS IV Last administered on 11/05/16 05:44; Start 11/02/16 at 12:00 Sodium Chloride 500 ml @ 500 mls/hr 1X ONCE IV Last administered on 14:10; Start 11/02/16 at 13:00; Stop 11/02/16 at 13:59; Status DC Sodium Chloride 1,000 ml @ 75 mls/hr [id number] IV ; Start 11/02/16 at 13:00; Stop 11/02/16 at 13:25; Status DC Vancomycin HCl 1.75 gm/Sodium Chloride 500 ml @ 250 mls/hr Q18H IV Last administered on 11/04/16 22:22; Start 11/03/16 at 08:00 Vancomycin HCl 1 each 1X ONCE MC Last administered on 11/04/16 19:30; Start 11/04/16 at 19:30; Stop 11/04/16 at 19:31; Status DC Metoclopramide HCl (Reglan) 10 mg 1X ONCE IV Last administered on 11/03/16 16 :35; Start 11/03/16 at 15:45; Stop 11/03/16 at 15:46; Status DC Furosemide (Lasix) 20 mg 1X ONCE IVP Last administered on 11/04/16 10:54; Start 11/04/16 at 10:30; Stop 11/04/16 at 10:31; Status DC Metoclopramide HCl (Reglan) 10 mg 1X ONCE IV Last administered on 11/04/16 17 :15; Start 11/04/16 at 17:15; Stop 11/04/16 at 17:16; Status DC Active Scripts Active Reported Trazodone Hcl 100 Mg Tablet 100 Mg PO HS Polyethylene Glycol 3350 255 Gm Powder 17 Gm PO DAILY Olanzapine 20 Mg Tablet 2 Tab PO QHS Montelukast Sodium Tablet (Montelukast Sodium) 10 Mg Tablet 10 Mg PO HS Meloxicam 15 Mg Tablet 1 Tab PO DAILY Losartan Potassium 50 Mg Tablet 50 Mg PO DAILY Lorazepam 1 Mg Tablet 1 Mg PO HS Lasix (Furosemide) 40 Mg Tablet 40 Mg PO PRN DAILY Hydrochlorothiazide Tablet (Hydrochlorothiazide) 25 Mg Tablet 25 Mg PO DAILY Folic Acid 1 Mg Tablet 1 Mg PO DAILY Fluoxetine Hcl 40 Mg Capsule 40 Mg PO DAILY Famotidine 20 Mg Tablet 20 Mg PO BID Duoneb 0.5-3(2.5) Mg/3 Ml (Albuterol/Ipratropium) 3 Ml Ampul.neb 3 Ml NEB QID Docusate Sodium 100 Mg Capsule 1 Cap PO BID Clonidine Hcl 0.1 Mg Tablet 0.1 Mg PO QID Cetirizine Hcl 10 Mg Tablet 1 Tab PO DAILY Allergies Allergies: Coded Allergies: haloperidol (Verified Allergy, Intermediate, 11/01/16) tetanus immune globulin (Verified Allergy, Intermediate, 11/01/16) ROS Review of System unable to obtain while she is sedated and intubated Physical Exam Physical Exam GEN: Sedated and intubated on the VENT, In no distress EYES: Vision Unchanged, Conjunctiva Normal EN: No EN Drainage, Mucous Membranes moist - tongue protruding NECK: no JVD, no JVP, Supple, no Thyromegaly, thick neck CVS: S1S2, no Murmur, No Gallop, No Rub,no Edema RESP: no Rales, no Rhonchi,no Acc. Muscle Use GI: BS + ve, NO Bruit, Non Tender, Non Distended : no CVA tenderness, no Suprapubic Tenderness Vital Signs Vital Signs Date Time Temp Pulse Resp B/P (MAP) Pulse Ox O2 Delivery O2 Flow Rate FiO2 11/05/16 06:00 88 19 111/65 (80) 98 Ventilator 11/05/16 05:00 98.1 98.1 Assessment & Plan MICHI POA - now almost resolved - Presumably due to NSAIDS + Diuretics. Current FLuid and E-lyte status does not necessitate emergent need for Dialysis. Will re-evaluate for Dialysis in am ? Underlying CKD - watch trend of creat once fluid status is optimized and Rhabdo resolves Rhabdomyolysis (Presumed due to Febrile illness) - Unable to aggressively use IVF (which were D/tripp by Pulm) , ct Diuretics tofor now to maintain flow thru kidneys Resp Failure (Pn + CHF) - defer to PUlm to eval and treat hence no IVF started Fl Overload - Diastolic CHF - may need CTA for GRUPO once creat is stable ^Na - restart HCTZ for now while on TF. Start PPN + Lasix if it worsens. Labs Labs Laboratory Tests Test 11/03/16 08:35 11/03/16 09:45 11/04/16 00:10 11/04/16 04:30 O2 Saturation 94 % (92-99) Arterial Blood pH 7.41 (7.35-7.45) Arterial Blood pCO2 at Patient Temp 41 mmHg (35-46) Arterial Blood pO2 at Patient Temp 74 mmHg (65-108) Arterial Blood HCO3 26 mmol/L (21-28) Arterial Blood Base Excess 1 mmol/L (-3-3) FiO2 70 Sodium Level 148 mmol/L (136-145) 150 mmol/L (136-145) Potassium Level 3.8 mmol/L (3.5-5.1) 4.6 mmol/L (3.5-5.1) Chloride Level 112 mmol/L (98-107) 115 mmol/L (98-107) Carbon Dioxide Level 26 mmol/L (21-32) 24 mmol/L (21-32) Anion Gap 10 (6-14) 11 (6-14) Blood Urea Nitrogen 44 mg/dL (7-20) 35 mg/dL (7-20) Creatinine 1.7 mg/dL (0.6-1.0) 1.2 mg/dL (0.6-1.0) Estimated GFR (Cockcroft-Gault) 36.7 54.9 Glucose Level 129 mg/dL (70-99) 132 mg/dL (70-99) Calcium Level 7.5 mg/dL (8.5-10.1) 7.4 mg/dL (8.5-10.1) Glucose (Fingerstick) 127 mg/dL (70-99) White Blood Count 10.9 x10^3/uL (4.0-11.0) Red Blood Count 3.63 x10^6/uL (3.50-5.40) Hemoglobin 10.3 g/dL (12.0-15.5) Hematocrit 33.5 % (36.0-47.0) Mean Corpuscular Volume 92 fL (79-100) Mean Corpuscular Hemoglobin 29 pg (25-35) Mean Corpuscular Hemoglobin Concent 31 g/dL (31-37) Red Cell Distribution Width 16.4 % (11.5-14.5) Platelet Count 249 x10^3/uL (140-400) Neutrophils (%) (Auto) 76 % (31-73) Lymphocytes (%) (Auto) 19 % (24-48) Monocytes (%) (Auto) 5 % (0-9) Eosinophils (%) (Auto) 0 % (0-3) Basophils (%) (Auto) 0 % (0-3) Neutrophils # (Auto) 8.2 x10^3uL (1.8-7.7) Lymphocytes # (Auto) 2.0 x10^3/uL (1.0-4.8) Monocytes # (Auto) 0.6 x10^3/uL (0.0-1.1) Eosinophils # (Auto) 0.0 x10^3/uL (0.0-0.7) Basophils # (Auto) 0.0 x10^3/uL (0.0-0.2) Creatine Kinase 3036 U/L (26-192) Test 11/04/16 08:00 11/04/16 16:01 11/04/16 18:54 11/04/16 20:00 O2 Saturation 94 % (92-99) Arterial Blood pH 7.38 (7.35-7.45) Arterial Blood pCO2 at Patient Temp 44 mmHg (35-46) Arterial Blood pO2 at Patient Temp 75 mmHg (65-108) Arterial Blood HCO3 26 mmol/L (21-28) Arterial Blood Base Excess 0 mmol/L (-3-3) FiO2 70 Glucose (Fingerstick) 98 mg/dL (70-99) 120 mg/dL (70-99) Vancomycin Level Trough 17.8 mcg/mL (10.0-20.0) Vancomycin Last Dose Date 11/04/16 Vancomycin Last Dose Time 0200 Test 11/04/16 23:33 11/05/16 05:39 11/05/16 05:40 Glucose (Fingerstick) 127 mg/dL (70-99) 129 mg/dL (70-99) White Blood Count 10.1 x10^3/uL (4.0-11.0) Red Blood Count 3.16 x10^6/uL (3.50-5.40) Hemoglobin 9.3 g/dL (12.0-15.5) Hematocrit 28.6 % (36.0-47.0) Mean Corpuscular Volume 91 fL (79-100) Mean Corpuscular Hemoglobin 30 pg (25-35) Mean Corpuscular Hemoglobin Concent 33 g/dL (31-37) Red Cell Distribution Width 16.1 % (11.5-14.5) Platelet Count 274 x10^3/uL (140-400) Neutrophils (%) (Auto) 69 % (31-73) Lymphocytes (%) (Auto) 22 % (24-48) Monocytes (%) (Auto) 8 % (0-9) Eosinophils (%) (Auto) 1 % (0-3) Basophils (%) (Auto) 1 % (0-3) Neutrophils # (Auto) 7.0 x10^3uL (1.8-7.7) Lymphocytes # (Auto) 2.2 x10^3/uL (1.0-4.8) Monocytes # (Auto) 0.8 x10^3/uL (0.0-1.1) Eosinophils # (Auto) 0.1 x10^3/uL (0.0-0.7) Basophils # (Auto) 0.0 x10^3/uL (0.0-0.2) Sodium Level 152 mmol/L (136-145) Potassium Level 4.2 mmol/L (3.5-5.1) Chloride Level 116 mmol/L (98-107) Carbon Dioxide Level 27 mmol/L (21-32) Anion Gap 9 (6-14) Blood Urea Nitrogen 33 mg/dL (7-20) Creatinine 1.2 mg/dL (0.6-1.0) Estimated GFR (Cockcroft-Gault) 54.9 Glucose Level 138 mg/dL (70-99) Calcium Level 8.3 mg/dL (8.5-10.1) Creatine Kinase 4026 U/L (26-192) Laboratory Tests Test 11/04/16 16:01 11/04/16 18:54 11/04/16 20:00 11/04/16 23:33 Glucose (Fingerstick) 98 mg/dL (70-99) 120 mg/dL (70-99) 127 mg/dL (70-99) Vancomycin Level Trough 17.8 mcg/mL (10.0-20.0) Vancomycin Last Dose Date 11/04/16 Vancomycin Last Dose Time 0200 Test 11/05/16 05:39 11/05/16 05:40 Glucose (Fingerstick) 129 mg/dL (70-99) White Blood Count 10.1 x10^3/uL (4.0-11.0) Red Blood Count 3.16 x10^6/uL (3.50-5.40) Hemoglobin 9.3 g/dL (12.0-15.5) Hematocrit 28.6 % (36.0-47.0) Mean Corpuscular Volume 91 fL (79-100) Mean Corpuscular Hemoglobin 30 pg (25-35) Mean Corpuscular Hemoglobin Concent 33 g/dL (31-37) Red Cell Distribution Width 16.1 % (11.5-14.5) Platelet Count 274 x10^3/uL (140-400) Neutrophils (%) (Auto) 69 % (31-73) Lymphocytes (%) (Auto) 22 % (24-48) Monocytes (%) (Auto) 8 % (0-9) Eosinophils (%) (Auto) 1 % (0-3) Basophils (%) (Auto) 1 % (0-3) Neutrophils # (Auto) 7.0 x10^3uL (1.8-7.7) Lymphocytes # (Auto) 2.2 x10^3/uL (1.0-4.8) Monocytes # (Auto) 0.8 x10^3/uL (0.0-1.1) Eosinophils # (Auto) 0.1 x10^3/uL (0.0-0.7) Basophils # (Auto) 0.0 x10^3/uL (0.0-0.2) Sodium Level 152 mmol/L (136-145) Potassium Level 4.2 mmol/L (3.5-5.1) Chloride Level 116 mmol/L (98-107) Carbon Dioxide Level 27 mmol/L (21-32) Anion Gap 9 (6-14) Blood Urea Nitrogen 33 mg/dL (7-20) Creatinine 1.2 mg/dL (0.6-1.0) Estimated GFR (Cockcroft-Gault) 54.9 Glucose Level 138 mg/dL (70-99) Calcium Level 8.3 mg/dL (8.5-10.1) Creatine Kinase 4026 U/L (26-192) Images Images The left ventricle is normal size. The left ventricular systolic function is normal and the ejection fraction is within normal range. The Ejection Fraction is 60-65%. There is no significant aortic valvular stenosis. Doppler and Color Flow revealed no significant aortic regurgitation. Doppler and Color-flow revealed trace mitral regurgitation. Doppler and Color Flow revealed mild tricuspid regurgitation. The PA pressure was estimated at 43 mmHg. CXR from [facility]: IMPRESSION: Slight interval worsening in pulmonary infiltrates likely reflecting worsening congestive heart failure SHREYA SMITH MD Nov 05, 2016 08:11
[2016-11-05] MEDS ORDERED: MAGNESIUM SULFATE 2GM 50 ML IV PRN (08:15)
[2016-11-05] MEDS: IPRATRPIUM/ALBUTEROL 0.5/2.5MG 3 ML NEBU. NEB SCH ×4 (08:23→20:02)
[2016-11-05 08:37] LABS: HCO3 ABG 26 mmol/L (21-28); PCO2 ABG 40 mmHg (35-46); PH ABG 7.44 (7.35-7.45); PO2 ABG 74 mmHg (65-108); SAT O2 ABG 95 % (92-99)
[2016-11-05 09:14] LABS: FIO2 ABG 50
[2016-11-05] MEDS: VANCOMYCIN PER PHARMACY MC PRN (09:17)
--- NOTE | 2016-11-05 09:42 | PDOC ---
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 clean Labs Lab Laboratory Tests Test 11/04/16 16:01 11/04/16 18:54 11/04/16 20:00 11/04/16 23:33 Glucose (Fingerstick) 98 mg/dL (70-99) 120 mg/dL (70-99) 127 mg/dL (70-99) Vancomycin Level Trough 17.8 mcg/mL (10.0-20.0) Vancomycin Last Dose Date 11/04/16 Vancomycin Last Dose Time 0200 Test 11/05/16 05:39 11/05/16 05:40 11/05/16 08:00 Glucose (Fingerstick) 129 mg/dL (70-99) White Blood Count 10.1 x10^3/uL (4.0-11.0) Red Blood Count 3.16 x10^6/uL (3.50-5.40) Hemoglobin 9.3 g/dL (12.0-15.5) Hematocrit 28.6 % (36.0-47.0) Mean Corpuscular Volume 91 fL (79-100) Mean Corpuscular Hemoglobin 30 pg (25-35) Mean Corpuscular Hemoglobin Concent 33 g/dL (31-37) Red Cell Distribution Width 16.1 % (11.5-14.5) Platelet Count 274 x10^3/uL (140-400) Neutrophils (%) (Auto) 69 % (31-73) Lymphocytes (%) (Auto) 22 % (24-48) Monocytes (%) (Auto) 8 % (0-9) Eosinophils (%) (Auto) 1 % (0-3) Basophils (%) (Auto) 1 % (0-3) Neutrophils # (Auto) 7.0 x10^3uL (1.8-7.7) Lymphocytes # (Auto) 2.2 x10^3/uL (1.0-4.8) Monocytes # (Auto) 0.8 x10^3/uL (0.0-1.1) Eosinophils # (Auto) 0.1 x10^3/uL (0.0-0.7) Basophils # (Auto) 0.0 x10^3/uL (0.0-0.2) Sodium Level 152 mmol/L (136-145) Potassium Level 4.2 mmol/L (3.5-5.1) Chloride Level 116 mmol/L (98-107) Carbon Dioxide Level 27 mmol/L (21-32) Anion Gap 9 (6-14) Blood Urea Nitrogen 33 mg/dL (7-20) Creatinine 1.2 mg/dL (0.6-1.0) Estimated GFR (Cockcroft-Gault) 54.9 Glucose Level 138 mg/dL (70-99) Calcium Level 8.3 mg/dL (8.5-10.1) Creatine Kinase 4026 U/L (26-192) O2 Saturation 95 % (92-99) Arterial Blood pH 7.44 (7.35-7.45) Arterial Blood pCO2 at Patient Temp 40 mmHg (35-46) Arterial Blood pO2 at Patient Temp 74 mmHg (65-108) Arterial Blood HCO3 26 mmol/L (21-28) Arterial Blood Base Excess 2 mmol/L (-3-3) FiO2 50 Micro SPUTUM CULT Final Routine respiratory kasey BLOOD CULTURE Preliminary NO GROWTH SO FAR URINE CULTURE RES 1 Final Klebsiella pneumoniae Antibiotic RSLT#1 Amoxicillin/Clavulanic Acid S Ampicillin R Cefepime S Ceftriaxone S Cefuroxime S Cephalothin S Ciprofloxacin S Ertapenem S Gentamicin S Imipenem S Levofloxacin S Nitrofurantoin S Piperacillin S Tetracycline S Tobramycin S Trimethoprim/Sulfa S Objective Assessment Klebsiella UTI, POA Fever Leukocytosis, trending down Respiratory failure Ángel pulmonary infiltrate, CHF vs pneumonia Acute renal failure, improving Schizophrenia Plan Plan of Care Vanc, Zosyn and Levaquin Supportive care Patient seen and examined. Chart reviewed in detail. Case discussed with HUMAN RESOURCES RECRUITER. Agree with above MARY,DAVE Jaffe APRN Nov 05, 2016 09:42 STEVEN RODRIGUEZ MD Nov 05, 2016 16:53
--- NOTE | 2016-11-05 10:02 | RAD ---
Indication respiratory failure. A single view of the chest was obtained and is compared to a study one day earlier. Mild cardiomegaly is unchanged. Pulmonary infiltrates persist and appear slightly worse. Findings may reflect mild worsening in congestive heart failure. Underlying infection is not excluded. Volume loss in the left lower lobe has also worsened. There are bilateral pleural effusions. Endotracheal tube is appropriately positioned above the rudy. Nasogastric tube has its tip beyond the mid body of the stomach. Right PICC line is noted on the current study IMPRESSION: Interval worsening. Pulmonary infiltrates are slightly worse. Volume loss in the left lower lobe is additionally somewhat worse
--- NOTE | 2016-11-05 10:29 | CONS ---
DATE OF CONSULTATION: 11/05/2016 PRIMARY PHYSICIAN: Dr. Mcintyre. REASON FOR CONSULTATION: Rhabdomyolysis, electrolyte abnormalities. HISTORY OF PRESENT ILLNESS: The patient is a 61-year-old -[place] female who was brought from a facility with possible pneumonia. She was brought by EMS for hypoxemia. She was felt to have hypercapnic respiratory failure and failed BiPAP treatment and so was placed on the ventilator. I am unable to get much in terms of history from her due to sedated and intubated state. She has no other labs here. Other than this hospitalization at presentation, her CPK was 2400. It has trended upwards to 4000 this morning. She was on IV fluids initially; however, her chest x-ray appeared to get worse and hence IV fluids were stopped. She did get Lasix yesterday. She is on tube feeds an hour. Sodium is 152, creatinine is down to 1.2 from an admission creatinine of 2.1. I believe her creatinine may be elevated due to previous use of Mobic. In this setting, we were asked to see this lady. For rest of the details, see electronic records. SHREYA SMITH MD DR: JENNA/padma JOB#: [id number] / [id number]
--- NOTE | 2016-11-05 10:49 | PDOC ---
PULMONARY PROGRESS NOTES Subjective PT SEDATED ON VERSED FENTANYL, ON PEEP 12, FIO2 50%, small ett secretion INTUBATED 10/31 SEC TO FAILURE ON BIPAP DECREASE SAT Vitals Vital Signs Date Time Temp Pulse Resp B/P (MAP) Pulse Ox O2 Delivery O2 Flow Rate FiO2 11/05/16 08:23 98 Ventilator 11/05/16 08:23 20 11/05/16 06:00 88 111/65 (80) 11/05/16 05:00 98.1 98.1 Comments ros discussed w rn, as mentioned as above other sys otherwise neg HEENT: Other (nc at perrl, orally intubated, nose clear neck + jvd, no lap, no thyromegaly) Lungs: Crackles Cardiovascular: S1, S2 Abdomen: Soft, Non-tender, Other (no mass) Extremities: Other (EDEMA) Skin: Warm Labs Laboratory Tests Test 11/04/16 00:10 11/04/16 04:30 11/04/16 08:00 11/04/16 16:01 Glucose (Fingerstick) 127 mg/dL (70-99) 98 mg/dL (70-99) White Blood Count 10.9 x10^3/uL (4.0-11.0) Red Blood Count 3.63 x10^6/uL (3.50-5.40) Hemoglobin 10.3 g/dL (12.0-15.5) Hematocrit 33.5 % (36.0-47.0) Mean Corpuscular Volume 92 fL (79-100) Mean Corpuscular Hemoglobin 29 pg (25-35) Mean Corpuscular Hemoglobin Concent 31 g/dL (31-37) Red Cell Distribution Width 16.4 % (11.5-14.5) Platelet Count 249 x10^3/uL (140-400) Neutrophils (%) (Auto) 76 % (31-73) Lymphocytes (%) (Auto) 19 % (24-48) Monocytes (%) (Auto) 5 % (0-9) Eosinophils (%) (Auto) 0 % (0-3) Basophils (%) (Auto) 0 % (0-3) Neutrophils # (Auto) 8.2 x10^3uL (1.8-7.7) Lymphocytes # (Auto) 2.0 x10^3/uL (1.0-4.8) Monocytes # (Auto) 0.6 x10^3/uL (0.0-1.1) Eosinophils # (Auto) 0.0 x10^3/uL (0.0-0.7) Basophils # (Auto) 0.0 x10^3/uL (0.0-0.2) Sodium Level 150 mmol/L (136-145) Potassium Level 4.6 mmol/L (3.5-5.1) Chloride Level 115 mmol/L (98-107) Carbon Dioxide Level 24 mmol/L (21-32) Anion Gap 11 (6-14) Blood Urea Nitrogen 35 mg/dL (7-20) Creatinine 1.2 mg/dL (0.6-1.0) Estimated GFR (Cockcroft-Gault) 54.9 Glucose Level 132 mg/dL (70-99) Calcium Level 7.4 mg/dL (8.5-10.1) Creatine Kinase 3036 U/L (26-192) O2 Saturation 94 % (92-99) Arterial Blood pH 7.38 (7.35-7.45) Arterial Blood pCO2 at Patient Temp 44 mmHg (35-46) Arterial Blood pO2 at Patient Temp 75 mmHg (65-108) Arterial Blood HCO3 26 mmol/L (21-28) Arterial Blood Base Excess 0 mmol/L (-3-3) FiO2 70 Test 11/04/16 18:54 11/04/16 20:00 11/04/16 23:33 11/05/16 05:39 Glucose (Fingerstick) 120 mg/dL (70-99) 127 mg/dL (70-99) 129 mg/dL (70-99) Vancomycin Level Trough 17.8 mcg/mL (10.0-20.0) Vancomycin Last Dose Date 11/04/16 Vancomycin Last Dose Time 0200 Test 11/05/16 05:40 11/05/16 08:00 White Blood Count 10.1 x10^3/uL (4.0-11.0) Red Blood Count 3.16 x10^6/uL (3.50-5.40) Hemoglobin 9.3 g/dL (12.0-15.5) Hematocrit 28.6 % (36.0-47.0) Mean Corpuscular Volume 91 fL (79-100) Mean Corpuscular Hemoglobin 30 pg (25-35) Mean Corpuscular Hemoglobin Concent 33 g/dL (31-37) Red Cell Distribution Width 16.1 % (11.5-14.5) Platelet Count 274 x10^3/uL (140-400) Neutrophils (%) (Auto) 69 % (31-73) Lymphocytes (%) (Auto) 22 % (24-48) Monocytes (%) (Auto) 8 % (0-9) Eosinophils (%) (Auto) 1 % (0-3) Basophils (%) (Auto) 1 % (0-3) Neutrophils # (Auto) 7.0 x10^3uL (1.8-7.7) Lymphocytes # (Auto) 2.2 x10^3/uL (1.0-4.8) Monocytes # (Auto) 0.8 x10^3/uL (0.0-1.1) Eosinophils # (Auto) 0.1 x10^3/uL (0.0-0.7) Basophils # (Auto) 0.0 x10^3/uL (0.0-0.2) Sodium Level 152 mmol/L (136-145) Potassium Level 4.2 mmol/L (3.5-5.1) Chloride Level 116 mmol/L (98-107) Carbon Dioxide Level 27 mmol/L (21-32) Anion Gap 9 (6-14) Blood Urea Nitrogen 33 mg/dL (7-20) Creatinine 1.2 mg/dL (0.6-1.0) Estimated GFR (Cockcroft-Gault) 54.9 Glucose Level 138 mg/dL (70-99) Calcium Level 8.3 mg/dL (8.5-10.1) Creatine Kinase 4026 U/L (26-192) O2 Saturation 95 % (92-99) Arterial Blood pH 7.44 (7.35-7.45) Arterial Blood pCO2 at Patient Temp 40 mmHg (35-46) Arterial Blood pO2 at Patient Temp 74 mmHg (65-108) Arterial Blood HCO3 26 mmol/L (21-28) Arterial Blood Base Excess 2 mmol/L (-3-3) FiO2 50 Laboratory Tests Test 11/04/16 16:01 11/04/16 18:54 11/04/16 20:00 11/04/16 23:33 Glucose (Fingerstick) 98 mg/dL (70-99) 120 mg/dL (70-99) 127 mg/dL (70-99) Vancomycin Level Trough 17.8 mcg/mL (10.0-20.0) Vancomycin Last Dose Date 11/04/16 Vancomycin Last Dose Time 0200 Test 11/05/16 05:39 11/05/16 05:40 11/05/16 08:00 Glucose (Fingerstick) 129 mg/dL (70-99) White Blood Count 10.1 x10^3/uL (4.0-11.0) Red Blood Count 3.16 x10^6/uL (3.50-5.40) Hemoglobin 9.3 g/dL (12.0-15.5) Hematocrit 28.6 % (36.0-47.0) Mean Corpuscular Volume 91 fL (79-100) Mean Corpuscular Hemoglobin 30 pg (25-35) Mean Corpuscular Hemoglobin Concent 33 g/dL (31-37) Red Cell Distribution Width 16.1 % (11.5-14.5) Platelet Count 274 x10^3/uL (140-400) Neutrophils (%) (Auto) 69 % (31-73) Lymphocytes (%) (Auto) 22 % (24-48) Monocytes (%) (Auto) 8 % (0-9) Eosinophils (%) (Auto) 1 % (0-3) Basophils (%) (Auto) 1 % (0-3) Neutrophils # (Auto) 7.0 x10^3uL (1.8-7.7) Lymphocytes # (Auto) 2.2 x10^3/uL (1.0-4.8) Monocytes # (Auto) 0.8 x10^3/uL (0.0-1.1) Eosinophils # (Auto) 0.1 x10^3/uL (0.0-0.7) Basophils # (Auto) 0.0 x10^3/uL (0.0-0.2) Sodium Level 152 mmol/L (136-145) Potassium Level 4.2 mmol/L (3.5-5.1) Chloride Level 116 mmol/L (98-107) Carbon Dioxide Level 27 mmol/L (21-32) Anion Gap 9 (6-14) Blood Urea Nitrogen 33 mg/dL (7-20) Creatinine 1.2 mg/dL (0.6-1.0) Estimated GFR (Cockcroft-Gault) 54.9 Glucose Level 138 mg/dL (70-99) Calcium Level 8.3 mg/dL (8.5-10.1) Creatine Kinase 4026 U/L (26-192) O2 Saturation 95 % (92-99) Arterial Blood pH 7.44 (7.35-7.45) Arterial Blood pCO2 at Patient Temp 40 mmHg (35-46) Arterial Blood pO2 at Patient Temp 74 mmHg (65-108) Arterial Blood HCO3 26 mmol/L (21-28) Arterial Blood Base Excess 2 mmol/L (-3-3) FiO2 50 Medications Active Scripts Medications Dose Route/Sig Max Daily Dose Days Date Category Trazodone Hcl 100 Mg Tablet 100 Mg PO HS 10/31/16 Reported Polyethylene Glycol 3350 255 Gm Powder 17 Gm PO DAILY 10/31/16 Reported Olanzapine 20 Mg Tablet 2 Tab PO QHS 10/31/16 Reported Montelukast Sodium Tablet (Montelukast Sodium) 10 Mg Tablet 10 Mg PO HS 10/31/16 Reported Meloxicam 15 Mg Tablet 1 Tab PO DAILY 10/31/16 Reported Losartan Potassium 50 Mg Tablet 50 Mg PO DAILY 10/31/16 Reported Lorazepam 1 Mg Tablet 1 Mg PO HS 10/31/16 Reported Lasix (Furosemide) 40 Mg Tablet 40 Mg PO PRN DAILY 10/31/16 Reported Hydrochlorothiazide Tablet (Hydrochlorothiazide) 25 Mg Tablet 25 Mg PO DAILY 10/31/16 Reported Folic Acid 1 Mg Tablet 1 Mg PO DAILY 10/31/16 Reported Fluoxetine Hcl 40 Mg Capsule 40 Mg PO DAILY 10/31/16 Reported Famotidine 20 Mg Tablet 20 Mg PO BID 10/31/16 Reported Duoneb 0.5-3(2.5) Mg/3 Ml (Albuterol/Ipratropium) 3 Ml Ampul.neb 3 Ml NEB QID 10/31/16 Reported Docusate Sodium 100 Mg Capsule 1 Cap PO BID 10/31/16 Reported Clonidine Hcl 0.1 Mg Tablet 0.1 Mg PO QID 10/31/16 Reported Cetirizine Hcl 10 Mg Tablet 1 Tab PO DAILY 10/31/16 Reported Comments reviewed, cxr, ett ok, b lat infilt worse. Impression . A/C HYPERCAPNIA HYPOXEMIC RESP FAILURE MULTIFACTORIAL FAILED BIPAP INTUBATED ACUTE HEART FAILURE SUSPECT DIASTOLIC TALHA/OHS ACUTE RENAL FAILURE MORBID OBESITY FEVER POSSIBLE PNEUMONIA GRAM NEG/GRAM POS POSSIBLE SEPSIS/FEVER UTI Plan . AC MODE, I PERSONALLY DECREASED PEEP TO 10, DECREASE PEEP TOLERATED CONT FIO2 TITRATION, NOT READY FOR WEANING, KEEP I<O, monitor k, cr, nephro consulted ANTIBX PER ID DVT AND GI PROPH CARD CONSULTED monitor fever,afebrile now DISCUSSED W RN, RT MONICA AMES MD Nov 05, 2016 10:49
--- NOTE | 2016-11-05 11:35 | RAD ---
Indication abdominal distention. Axial noncontrast images to the abdomen and pelvis were obtained. The study is limited in that no IV or gastrointestinal contrast was administered. No prior CT imaging of the abdomen or pelvis is available. There is volume loss at the lung bases left greater than right suggesting pneumonia. Clinical correlation advised. Nasogastric tube is noted in the fundus of the stomach. A Acuña catheter is noted in the urinary bladder. The liver appears unremarkable. The gallbladder is grossly normal. The spleen is quite small but otherwise unremarkable. Pancreatic abnormality is not seen. No adrenal or renal anomalies are seen. No acute finding is apparent the abdomen. No acute or significant findings seen in pelvis. There are degenerative changes about the left hip. Degenerative changes also seen in the lumbar spine. IMPRESSION: No acute finding seen in the abdomen or pelvis. Volume loss at the lung bases left greater than right compatible with atelectasis or 2 PQRS Compliance Statement: One or more of the following individualized dose reduction techniques were utilized for this examination: 1. Automated exposure control 2. Adjustment of the mA and/or kV according to patient size 3. Use of iterative reconstruction technique
[2016-11-05] MEDS: hydroCHLOROthiazide 25 MG TABLET PO SCH (12:04)
[2016-11-05] MEDS: CHLORHEXIDINE 0.12% 15 ML MOUTHWASH. MM SCH ×2 (12:04→21:03)
--- NOTE | 2016-11-05 12:12 | PDOC ---
PROGRESS NOTES Chief Complaint Chief Complaint Complaint: respiratory failure Assessment and plan Acute hypoxic and hypercapnic resp failure with HAP, Failed on bipap and on mechanical ventilation from 10/31/2016 Fever and leukocytosis: Better today, no fevers for hours Pseudomonas urinary tract infection, present on admission Healthcare associated pneumonia possible gram-negative rods COPD morbid obesity Congestive heart failure , LV ejection fraction 65% Ckd with jerrod, vasomotor HX of schizophrenia HTN tobaccoism Elevated CPK, unclear etiology Hypernatremia: Monitor PLAN: Fevers better today, continue IV Zosyn and vancomycin and the Levaquin. Vancomycin renal dosing, Ventilator management by pulmonology Continue IV hydration with saline, Making good urine, It as needed Reglan for residual to feeds Continue to feeds CT abdomen pelvis no acute findings noted Chest x-ray reveals reviewed ABGs are improving, clinically no change Monitor CPK elevated, no obvious signs of trauma seen on exam, externally, discussed with RN-no bruising noted on the posterior aspect of the body. Order myoglobin labs pending DVT prophylaxis with Lovenox Labs reviewed Discussed with RN Periodic nebulizations as per respiratory therapy. Prognosis guarded, condition critical. Place PICC line No immediate family members available. cc time 33 min History of Present Illness History of Present Illness no BM, able to pass flatus Distended abdomen fevers persistent Vitals Vitals Vital Signs Date Time Temp Pulse Resp B/P (MAP) Pulse Ox O2 Delivery O2 Flow Rate FiO2 11/05/16 11:50 98 Ventilator 11/05/16 08:23 20 11/05/16 06:00 88 111/65 (80) 11/05/16 05:00 98.1 98.1 Physical Exam Physical Exam intubated, sedated General: Other (serrated, intubated,) Heart: Regular rate (SR), Normal S1, Normal S2, Other Lungs: Crackles Abdomen: Soft, No tenderness, Other (obese, mild distended) Extremities: No cyanosis, Other (1+ bilateral LE pitting edema) Skin: No breakdown, No significant lesion Labs LABS Laboratory Tests Test 11/04/16 16:01 11/04/16 18:54 11/04/16 20:00 11/04/16 23:33 Glucose (Fingerstick) 98 mg/dL (70-99) 120 mg/dL (70-99) 127 mg/dL (70-99) Vancomycin Level Trough 17.8 mcg/mL (10.0-20.0) Vancomycin Last Dose Date 11/04/16 Vancomycin Last Dose Time 0200 Test 11/05/16 05:39 11/05/16 05:40 11/05/16 08:00 Glucose (Fingerstick) 129 mg/dL (70-99) White Blood Count 10.1 x10^3/uL (4.0-11.0) Red Blood Count 3.16 x10^6/uL (3.50-5.40) Hemoglobin 9.3 g/dL (12.0-15.5) Hematocrit 28.6 % (36.0-47.0) Mean Corpuscular Volume 91 fL (79-100) Mean Corpuscular Hemoglobin 30 pg (25-35) Mean Corpuscular Hemoglobin Concent 33 g/dL (31-37) Red Cell Distribution Width 16.1 % (11.5-14.5) Platelet Count 274 x10^3/uL (140-400) Neutrophils (%) (Auto) 69 % (31-73) Lymphocytes (%) (Auto) 22 % (24-48) Monocytes (%) (Auto) 8 % (0-9) Eosinophils (%) (Auto) 1 % (0-3) Basophils (%) (Auto) 1 % (0-3) Neutrophils # (Auto) 7.0 x10^3uL (1.8-7.7) Lymphocytes # (Auto) 2.2 x10^3/uL (1.0-4.8) Monocytes # (Auto) 0.8 x10^3/uL (0.0-1.1) Eosinophils # (Auto) 0.1 x10^3/uL (0.0-0.7) Basophils # (Auto) 0.0 x10^3/uL (0.0-0.2) Sodium Level 152 mmol/L (136-145) Potassium Level 4.2 mmol/L (3.5-5.1) Chloride Level 116 mmol/L (98-107) Carbon Dioxide Level 27 mmol/L (21-32) Anion Gap 9 (6-14) Blood Urea Nitrogen 33 mg/dL (7-20) Creatinine 1.2 mg/dL (0.6-1.0) Estimated GFR (Cockcroft-Gault) 54.9 Glucose Level 138 mg/dL (70-99) Calcium Level 8.3 mg/dL (8.5-10.1) Creatine Kinase 4026 U/L (26-192) O2 Saturation 95 % (92-99) Arterial Blood pH 7.44 (7.35-7.45) Arterial Blood pCO2 at Patient Temp 40 mmHg (35-46) Arterial Blood pO2 at Patient Temp 74 mmHg (65-108) Arterial Blood HCO3 26 mmol/L (21-28) Arterial Blood Base Excess 2 mmol/L (-3-3) FiO2 50 Comment Review of Relevant I have reviewed the following items asif (where applicable) has been applied. Labs Laboratory Tests Test 11/04/16 00:10 11/04/16 04:30 11/04/16 08:00 11/04/16 16:01 Glucose (Fingerstick) 127 mg/dL (70-99) 98 mg/dL (70-99) White Blood Count 10.9 x10^3/uL (4.0-11.0) Red Blood Count 3.63 x10^6/uL (3.50-5.40) Hemoglobin 10.3 g/dL (12.0-15.5) Hematocrit 33.5 % (36.0-47.0) Mean Corpuscular Volume 92 fL (79-100) Mean Corpuscular Hemoglobin 29 pg (25-35) Mean Corpuscular Hemoglobin Concent 31 g/dL (31-37) Red Cell Distribution Width 16.4 % (11.5-14.5) Platelet Count 249 x10^3/uL (140-400) Neutrophils (%) (Auto) 76 % (31-73) Lymphocytes (%) (Auto) 19 % (24-48) Monocytes (%) (Auto) 5 % (0-9) Eosinophils (%) (Auto) 0 % (0-3) Basophils (%) (Auto) 0 % (0-3) Neutrophils # (Auto) 8.2 x10^3uL (1.8-7.7) Lymphocytes # (Auto) 2.0 x10^3/uL (1.0-4.8) Monocytes # (Auto) 0.6 x10^3/uL (0.0-1.1) Eosinophils # (Auto) 0.0 x10^3/uL (0.0-0.7) Basophils # (Auto) 0.0 x10^3/uL (0.0-0.2) Sodium Level 150 mmol/L (136-145) Potassium Level 4.6 mmol/L (3.5-5.1) Chloride Level 115 mmol/L (98-107) Carbon Dioxide Level 24 mmol/L (21-32) Anion Gap 11 (6-14) Blood Urea Nitrogen 35 mg/dL (7-20) Creatinine 1.2 mg/dL (0.6-1.0) Estimated GFR (Cockcroft-Gault) 54.9 Glucose Level 132 mg/dL (70-99) Calcium Level 7.4 mg/dL (8.5-10.1) Creatine Kinase 3036 U/L (26-192) O2 Saturation 94 % (92-99) Arterial Blood pH 7.38 (7.35-7.45) Arterial Blood pCO2 at Patient Temp 44 mmHg (35-46) Arterial Blood pO2 at Patient Temp 75 mmHg (65-108) Arterial Blood HCO3 26 mmol/L (21-28) Arterial Blood Base Excess 0 mmol/L (-3-3) FiO2 70 Test 11/04/16 18:54 11/04/16 20:00 11/04/16 23:33 11/05/16 05:39 Glucose (Fingerstick) 120 mg/dL (70-99) 127 mg/dL (70-99) 129 mg/dL (70-99) Vancomycin Level Trough 17.8 mcg/mL (10.0-20.0) Vancomycin Last Dose Date 11/04/16 Vancomycin Last Dose Time 0200 Test 11/05/16 05:40 11/05/16 08:00 White Blood Count 10.1 x10^3/uL (4.0-11.0) Red Blood Count 3.16 x10^6/uL (3.50-5.40) Hemoglobin 9.3 g/dL (12.0-15.5) Hematocrit 28.6 % (36.0-47.0) Mean Corpuscular Volume 91 fL (79-100) Mean Corpuscular Hemoglobin 30 pg (25-35) Mean Corpuscular Hemoglobin Concent 33 g/dL (31-37) Red Cell Distribution Width 16.1 % (11.5-14.5) Platelet Count 274 x10^3/uL (140-400) Neutrophils (%) (Auto) 69 % (31-73) Lymphocytes (%) (Auto) 22 % (24-48) Monocytes (%) (Auto) 8 % (0-9) Eosinophils (%) (Auto) 1 % (0-3) Basophils (%) (Auto) 1 % (0-3) Neutrophils # (Auto) 7.0 x10^3uL (1.8-7.7) Lymphocytes # (Auto) 2.2 x10^3/uL (1.0-4.8) Monocytes # (Auto) 0.8 x10^3/uL (0.0-1.1) Eosinophils # (Auto) 0.1 x10^3/uL (0.0-0.7) Basophils # (Auto) 0.0 x10^3/uL (0.0-0.2) Sodium Level 152 mmol/L (136-145) Potassium Level 4.2 mmol/L (3.5-5.1) Chloride Level 116 mmol/L (98-107) Carbon Dioxide Level 27 mmol/L (21-32) Anion Gap 9 (6-14) Blood Urea Nitrogen 33 mg/dL (7-20) Creatinine 1.2 mg/dL (0.6-1.0) Estimated GFR (Cockcroft-Gault) 54.9 Glucose Level 138 mg/dL (70-99) Calcium Level 8.3 mg/dL (8.5-10.1) Creatine Kinase 4026 U/L (26-192) O2 Saturation 95 % (92-99) Arterial Blood pH 7.44 (7.35-7.45) Arterial Blood pCO2 at Patient Temp 40 mmHg (35-46) Arterial Blood pO2 at Patient Temp 74 mmHg (65-108) Arterial Blood HCO3 26 mmol/L (21-28) Arterial Blood Base Excess 2 mmol/L (-3-3) FiO2 50 Laboratory Tests Test 11/04/16 16:01 11/04/16 18:54 11/04/16 20:00 11/04/16 23:33 Glucose (Fingerstick) 98 mg/dL (70-99) 120 mg/dL (70-99) 127 mg/dL (70-99) Vancomycin Level Trough 17.8 mcg/mL (10.0-20.0) Vancomycin Last Dose Date 11/04/16 Vancomycin Last Dose Time 0200 Test 11/05/16 05:39 11/05/16 05:40 11/05/16 08:00 Glucose (Fingerstick) 129 mg/dL (70-99) White Blood Count 10.1 x10^3/uL (4.0-11.0) Red Blood Count 3.16 x10^6/uL (3.50-5.40) Hemoglobin 9.3 g/dL (12.0-15.5) Hematocrit 28.6 % (36.0-47.0) Mean Corpuscular Volume 91 fL (79-100) Mean Corpuscular Hemoglobin 30 pg (25-35) Mean Corpuscular Hemoglobin Concent 33 g/dL (31-37) Red Cell Distribution Width 16.1 % (11.5-14.5) Platelet Count 274 x10^3/uL (140-400) Neutrophils (%) (Auto) 69 % (31-73) Lymphocytes (%) (Auto) 22 % (24-48) Monocytes (%) (Auto) 8 % (0-9) Eosinophils (%) (Auto) 1 % (0-3) Basophils (%) (Auto) 1 % (0-3) Neutrophils # (Auto) 7.0 x10^3uL (1.8-7.7) Lymphocytes # (Auto) 2.2 x10^3/uL (1.0-4.8) Monocytes # (Auto) 0.8 x10^3/uL (0.0-1.1) Eosinophils # (Auto) 0.1 x10^3/uL (0.0-0.7) Basophils # (Auto) 0.0 x10^3/uL (0.0-0.2) Sodium Level 152 mmol/L (136-145) Potassium Level 4.2 mmol/L (3.5-5.1) Chloride Level 116 mmol/L (98-107) Carbon Dioxide Level 27 mmol/L (21-32) Anion Gap 9 (6-14) Blood Urea Nitrogen 33 mg/dL (7-20) Creatinine 1.2 mg/dL (0.6-1.0) Estimated GFR (Cockcroft-Gault) 54.9 Glucose Level 138 mg/dL (70-99) Calcium Level 8.3 mg/dL (8.5-10.1) Creatine Kinase 4026 U/L (26-192) O2 Saturation 95 % (92-99) Arterial Blood pH 7.44 (7.35-7.45) Arterial Blood pCO2 at Patient Temp 40 mmHg (35-46) Arterial Blood pO2 at Patient Temp 74 mmHg (65-108) Arterial Blood HCO3 26 mmol/L (21-28) Arterial Blood Base Excess 2 mmol/L (-3-3) FiO2 50 Microbiology 11/02/16 Blood Culture - Preliminary, Resulted NO GROWTH AFTER 2 DAYS 11/01/16 Sputum Culture - Final, Complete 11/01/16 Sputum Result 1 - Final, Complete 10/31/16 Urine Culture - Final, Complete 10/31/16 Urine Culture Result 1 (ISAIAS) - Final, Complete 10/31/16 Antimicrobic Susceptibility - Final, Complete Medications Current Medications Methylprednisolone Sodium Succinate (SOLU-Medrol 125MG VIAL) 125 mg 1X ONCE IV Last administered on 10/31/16 11:18; Start 10/31/16 at 11:00; Stop 10/31/16 at 11:01; Status DC Albuterol/ Ipratropium (Duoneb) 3 ml 1X ONCE NEB Last administered on 11:00; Start 10/31/16 at 11:00; Stop 10/31/16 at 11:01; Status DC Furosemide (Lasix) 40 mg 1X ONCE IVP Last administered on 10/31/16 11:17; Start 10/31/16 at 11:15; Stop 10/31/16 at 11:16; Status DC Vancomycin HCl (Vanco Per Pharmacy) 1 each PRN DAILY PRN MC SEE COMMENTS Last administered on 11/05/16 09:17; Start 10/31/16 at 11:30 Piperacillin Sod/ Tazobactam Sod (Zosyn Per Pharmacy) 1 each PRN DAILY PRN MC SEE COMMENTS; Start 10/31/16 at 11:30; Stop 11/02/16 at 08:44; Status DC Levofloxacin/ Dextrose (Levaquin Per Pharmacy) 1 each PRN DAILY PRN MC SEE COMMENTS; Start 10/31/16 at 11:30; Stop 10/31/16 at 12:57; Status DC Vancomycin HCl 2 gm/Sodium Chloride 500 ml @ 250 mls/hr 1X ONCE IV Last administered on 10/31/16 14:30; Start 10/31/16 at 11:30; Stop 10/31/16 at 13:29 ; Status DC Levofloxacin/ Dextrose 150 ml @ 100 mls/hr ONCE ONCE IV Last administered on 10/31/16 12:45; Start 10/31/16 at 11:30; Stop 10/31/16 at 12:59; Status DC Piperacillin Sod/ Tazobactam Sod 3.375 gm/Sodium Chloride 50 ml @ 100 mls/hr ONCE ONCE IV Last administered on 10/31/16 11:38; Start 10/31/16 at 11:45; Stop 10/31/16 at 12:14; Status DC Levofloxacin/ Dextrose 150 ml @ 100 mls/hr Q48H IV Last administered on 10:54; Start 11/02/16 at 10:00; Stop 11/05/16 at 09:18; Status DC Piperacillin Sod/ Tazobactam Sod 3.375 gm/Sodium Chloride 50 ml @ 100 mls/hr Q6HRS IV Last administered on 11/02/16 05:44; Start 10/31/16 at 18:00; Stop at 08:47; Status DC Acetaminophen (Tylenol) 650 mg PRN Q6HRS PRN PO FEVER Last administered on 11/01 20:26; Start 10/31/16 at 15:15; Stop 11/02/16 at 07:45; Status DC Ondansetron HCl (Zofran) 4 mg PRN Q6HRS PRN IV NAUSEA/VOMITING; Start 10/31/16 at 15:15 Morphine Sulfate 2 mg PRN Q2HR PRN IV PAIN Last administered on 11/01/16 15:48 ; Start 10/31/16 at 15:15 Tramadol HCl (Ultram) 50 mg PRN Q6HRS PRN PO PAIN; Start 10/31/16 at 15:15 Hydralazine HCl (Apresoline) 10 mg PRN Q4HRS PRN IVP ELEVATED BP, SEE COMMENTS ; Start 10/31/16 at 15:15 Docusate Sodium (Colace) 100 mg PRN DAILY PRN PO CONSTIPATION Last administered on 11/05/16 00:01; Start 10/31/16 at 15:15 Albuterol/ Ipratropium (Duoneb) 3 ml RTQID NEB Last administered on 11/05/16 11:50; Start 10/31/16 at 16:00 Albuterol Sulfate (Ventolin Neb Soln) 2.5 mg PRN Q4HRS PRN NEB SHORTNESS OF BREATH; Start 10/31/16 at 15:15 Heparin Sodium (Porcine) (Heparin Sq) 5,000 unit Q8HRS SQ Last administered on 11/05/16 05:51; Start 10/31/16 at 22:00 Famotidine (Pepcid) 20 mg QHS IVP Last administered on 11/04/16 20:39; Start 10/31/16 at 21:00 Vancomycin HCl 2 gm/Sodium Chloride 500 ml @ 250 mls/hr Q24H IV Last administered on 11/02/16 14:14; Start 11/01/16 at 14:00; Stop 11/02/16 at 14:24 ; Status DC Vancomycin HCl 1 each 1X ONCE MC Last administered on 11/02/16 13:30; Start 11/02/16 at 13:30; Stop 11/02/16 at 13:31; Status DC Sodium Chloride 1,000 ml @ 80 mls/hr [id number] IV Last administered on 08:27; Start 10/31/16 at 16:15; Stop 11/05/16 at 08:31; Status DC Sodium Chloride 1,000 ml @ 1,000 mls/hr 1X ONCE IV Last administered on 18:04; Start 10/31/16 at 14:00; Stop 10/31/16 at 17:23; Status DC Sodium Chloride 500 ml @ 500 mls/hr 1X ONCE IV Last administered on 17:30; Start 10/31/16 at 17:30; Stop 10/31/16 at 18:29; Status DC Fentanyl Citrate 30 ml @ 0 mls/hr CONT PRN IV PROTOCOL Last administered on 08:23; Start 10/31/16 at 18:30 Propofol 100 ml @ 0 mls/hr CONT PRN IV PER PROTOCOL Last administered on 19:00; Start 10/31/16 at 18:30 Chlorhexidine Gluconate (Peridex) 15 ml BID MM Last administered on 11/04/16 20:41; Start 10/31/16 at 21:00 Artificial Tears (Artificial Tears) 1 drop PRN Q1HR PRN OU DRY EYE; Start 10/31 at 18:30 Midazolam HCl 100 ml @ 0 mls/hr CONT PRN IV PER PROTOCOL Last administered on 03:23; Start 10/31/16 at 18:30 Succinylcholine Chloride (Anectine) 200 mg STK-MED ONCE .ROUTE ; Start 10/31/16 at 18:43; Stop 10/31/16 at 18:44; Status DC Midazolam HCl (Versed) 5 mg STK-MED ONCE .ROUTE ; Start 10/31/16 at 18:45; Stop 10/31/16 at 18:46; Status DC Midazolam HCl (Versed) 5 mg 1X ONCE IV Last administered on 10/31/16 19:30; Start 10/31/16 at 19:30; Stop 10/31/16 at 19:31; Status DC Succinylcholine Chloride (Anectine) 200 mg STK-MED ONCE .ROUTE ; Start 10/31/16 at 18:45; Stop 11/01/16 at 08:13; Status DC Furosemide (Lasix) 20 mg 1X ONCE IVP Last administered on 11/01/16 13:48; Start 11/01/16 at 13:30; Stop 11/01/16 at 13:31; Status DC Sodium Chloride 500 ml @ 500 mls/hr 1X ONCE IV Last administered on 23:09; Start 11/01/16 at 23:15; Stop 11/02/16 at 00:14; Status DC Acetaminophen (Tylenol) 650 mg PRN Q6HRS PRN PEG MILD PAIN / TEMP Last administered on 11/03/16 16:46; Start 11/02/16 at 07:45 Piperacillin Sod/ Tazobactam Sod 4.5 gm/Sodium Chloride 100 ml @ 200 mls/hr Q6HRS IV Last administered on 11/05/16 05:44; Start 11/02/16 at 12:00 Sodium Chloride 500 ml @ 500 mls/hr 1X ONCE IV Last administered on 14:10; Start 11/02/16 at 13:00; Stop 11/02/16 at 13:59; Status DC Sodium Chloride 1,000 ml @ 75 mls/hr [id number] IV ; Start 11/02/16 at 13:00; Stop 11/02/16 at 13:25; Status DC Vancomycin HCl 1.75 gm/Sodium Chloride 500 ml @ 250 mls/hr Q18H IV Last administered on 11/04/16 22:22; Start 11/03/16 at 08:00 Vancomycin HCl 1 each 1X ONCE MC Last administered on 11/04/16 19:30; Start 11/04/16 at 19:30; Stop 11/04/16 at 19:31; Status DC Metoclopramide HCl (Reglan) 10 mg 1X ONCE IV Last administered on 11/03/16 16 :35; Start 11/03/16 at 15:45; Stop 11/03/16 at 15:46; Status DC Furosemide (Lasix) 20 mg 1X ONCE IVP Last administered on 11/04/16 10:54; Start 11/04/16 at 10:30; Stop 11/04/16 at 10:31; Status DC Metoclopramide HCl (Reglan) 10 mg 1X ONCE IV Last administered on 11/04/16 17 :15; Start 11/04/16 at 17:15; Stop 11/04/16 at 17:16; Status DC Magnesium Sulfate/ Dextrose 50 ml @ 25 mls/hr PRN DAILY PRN IV for Mag < 1.7 on am labs; Start 11/05/16 at 08:15 Hydrochlorothiazide (Hydrodiuril) 25 mg DAILY PO ; Start 11/05/16 at 09:00 Levofloxacin/ Dextrose 150 ml @ 100 mls/hr Q24H IV ; Start 11/05/16 at 10:00 Active Scripts Active Reported Trazodone Hcl 100 Mg Tablet 100 Mg PO HS Polyethylene Glycol 3350 255 Gm Powder 17 Gm PO DAILY Olanzapine 20 Mg Tablet 2 Tab PO QHS Montelukast Sodium Tablet (Montelukast Sodium) 10 Mg Tablet 10 Mg PO HS Meloxicam 15 Mg Tablet 1 Tab PO DAILY Losartan Potassium 50 Mg Tablet 50 Mg PO DAILY Lorazepam 1 Mg Tablet 1 Mg PO HS Lasix (Furosemide) 40 Mg Tablet 40 Mg PO PRN DAILY Hydrochlorothiazide Tablet (Hydrochlorothiazide) 25 Mg Tablet 25 Mg PO DAILY Folic Acid 1 Mg Tablet 1 Mg PO DAILY Fluoxetine Hcl 40 Mg Capsule 40 Mg PO DAILY Famotidine 20 Mg Tablet 20 Mg PO BID Duoneb 0.5-3(2.5) Mg/3 Ml (Albuterol/Ipratropium) 3 Ml Ampul.neb 3 Ml NEB QID Docusate Sodium 100 Mg Capsule 1 Cap PO BID Clonidine Hcl 0.1 Mg Tablet 0.1 Mg PO QID Cetirizine Hcl 10 Mg Tablet 1 Tab PO DAILY Vitals/I & O Vital Sign - Last 24 Hours 11/04/16 11/04/16 11/04/16 11/04/16 12:19 13:00 13:20 14:00 Pulse 98 92 Resp 19 19 B/P (MAP) 110/60 (77) 107/60 (76) Pulse Ox 94 94 93 94 O2 Delivery Ventilator Ventilator Ventilator Ventilator 11/04/16 11/04/16 11/04/16 11/04/16 16:00 16:00 16:04 17:00 Temp 102.1 102.1 Pulse 100 107 Resp 20 20 B/P (MAP) 100/57 (71) 92/58 (69) Pulse Ox 92 94 92 O2 Delivery Mechanical Ventilator Ventilator Ventilator Ventilator 11/04/16 11/04/16 11/04/16 11/04/16 18:00 18:25 19:00 19:34 Temp 99.7 99.7 Pulse 96 98 Resp 21 20 B/P (MAP) 86/54 (65) 108/66 (80) Pulse Ox 91 93 93 94 O2 Delivery Ventilator Ventilator Ventilator Ventilator 11/04/16 11/04/16 11/04/16 11/04/16 20:00 20:00 20:55 21:00 Temp 99.4 99.4 Pulse 104 98 Resp 20 20 B/P (MAP) 109/62 (78) 110/64 (79) Pulse Ox 95 93 94 O2 Delivery Ventilator Mechanical Ventilator Ventilator Ventilator 11/04/16 11/04/16 11/04/16 11/05/16 22:00 22:35 23:00 00:00 Temp 99.3 98.8 99.3 98.8 Pulse 98 98 Resp 20 20 B/P (MAP) 110/64 (79) 116/66 (83) Pulse Ox 94 92 94 O2 Delivery Ventilator Ventilator Ventilator Mechanical Ventilator 11/05/16 11/05/16 11/05/16 11/05/16 00:00 00:37 00:38 01:00 Pulse 98 91 Resp 20 20 B/P (MAP) 116/69 (85) 110/70 (83) Pulse Ox 94 93 94 94 O2 Delivery Ventilator Ventilator Ventilator 11/05/16 11/05/16 11/05/16 11/05/16 02:00 03:00 03:37 04:00 Temp 98.1 98.1 Pulse 92 89 Resp 20 20 B/P (MAP) 116/75 (89) 110/68 (82) Pulse Ox 98 98 99 O2 Delivery Ventilator Ventilator Ventilator Mechanical Ventilator 11/05/16 11/05/16 11/05/16 11/05/16 04:00 05:00 05:27 06:00 Temp 98.1 98.1 Pulse 88 86 88 Resp 20 20 19 B/P (MAP) 111/69 (83) 111/67 (82) 111/65 (80) Pulse Ox 98 99 98 98 O2 Delivery Ventilator Ventilator Ventilator Ventilator 11/05/16 11/05/16 11/05/16 11/05/16 07:21 08:00 08:23 08:23 Resp 20 Pulse Ox 98 98 O2 Delivery Ventilator Mechanical Ventilator Ventilator 11/05/16 11:50 Pulse Ox 98 O2 Delivery Ventilator Intake and Output 11/04/16 11/04/16 11/05/16 15:00 23:00 07:00 Intake Total 470 ml 958.28 ml 1441.94 ml Output Total 790 ml 680 ml 435 ml Balance -320 ml 278.28 ml 1006.94 ml MATHIEU DUONG MD Nov 05, 2016 12:12
[2016-11-05] MEDS: VANCOMYCIN 1.75 GM in IV NORMAL SALINE 500ML BAG 500 ML IV SCH (15:11)
[2016-11-05] MEDS: ACETAMINOPHEN 650 MG/20.3 ML SOLUTION. PEG PRN (16:39)
[2016-11-05] MEDS: IV NORMAL SALINE 1000ML BAG 1,000 ML IV SCH (16:39)
[2016-11-05] MEDS: FAMOTIDINE 20 MG/2 ML VIAL IVP SCH (21:03)
[2016-11-05 23:06] LABS: OBC FLU VALID; OBC RSV VALID
[2016-11-06] VITALS (23 sets, daily range): BP systolic 105–178; BP diastolic 59–93
[2016-11-06] MEDS: IV NORMAL SALINE 1000ML BAG 1,000 ML IV SCH (04:54)
[2016-11-06] MEDS: PIPERACILLIN/TAZOBACTAM 4.5 GM in IV NORMAL SALINE 100ML 100 ML IV SCH ×4 (05:21→23:46)
[2016-11-06 05:28] LABS: BASO # 0.1 x10^3/uL (0.0-0.2); BASO % 1 % (0-3); EOS % 3 % (0-3); HEMATOCRIT 27.6 % (36.0-47.0); HEMOGLOBIN 8.8 g/dL (12.0-15.5); LYMPH % 20 % (24-48); MEAN CORPUSCULAR HEMOGLOBIN 29 pg (25-35); MEAN CORPUSCULAR HGB CONC 32 g/dL (31-37); MEAN CORPUSCULAR VOLUME 90 fL (79-100); MONO % 11 % (0-9); NEUT % 66 % (31-73); PLATELET COUNT 309 x10^3/uL (140-400); RED BLOOD COUNT 3.05 x10^6/uL (3.50-5.40); RED CELL DISTRIBUTION WIDTH 16.4 % (11.5-14.5); WHITE BLOOD COUNT 10.1 x10^3/uL (4.0-11.0)
[2016-11-06 05:58] LABS: ALBUMIN 1.7 g/dL (3.4-5.0); CALCIUM 8.5 mg/dL (8.5-10.1); GFR 67.8; PHOSPHORUS 2.3 mg/dL (2.6-4.7); POTASSIUM 4.1 mmol/L (3.5-5.1)
[2016-11-06 06:12] LABS: MAGNESIUM 2.3 mg/dL (1.8-2.4)
[2016-11-06] MEDS: HEPARIN PF for SUB-Q USE 5,000 UNIT/0.5 ML VIAL. SQ SCH ×3 (06:14→21:06)
[2016-11-06] MEDS: IPRATRPIUM/ALBUTEROL 0.5/2.5MG 3 ML NEBU. NEB SCH ×4 (08:05→19:44)
[2016-11-06 08:23] LABS: HCO3 ABG 27 mmol/L (21-28); PCO2 ABG 44 mmHg (35-46); PO2 ABG 75 mmHg (65-108); SAT O2 ABG 94 % (92-99)
[2016-11-06 08:25] LABS: FIO2 ABG 50
[2016-11-06] MEDS: hydroCHLOROthiazide 25 MG TABLET PO SCH (09:00)
[2016-11-06] MEDS: CHLORHEXIDINE 0.12% 15 ML MOUTHWASH. MM SCH ×2 (09:12→21:54)
[2016-11-06] MEDS: VANCOMYCIN 1.75 GM in IV NORMAL SALINE 500ML BAG 500 ML IV SCH (09:13)
[2016-11-06] MEDS ORDERED: FUROSEMIDE 20 MG/2 ML VIAL. IVP ONE (09:30)
[2016-11-06] MEDS ORDERED: IV 1/2 NORMAL SALINE 1,000 ML IV SCH (09:30)
--- NOTE | 2016-11-06 09:35 | PDOC ---
Infectious Disease Note Subjective Subjective Remains intubated. FiO2 50% Tube feedings via OGT Less fever No diarrhea. 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 clean Labs Lab Laboratory Tests Test 11/05/16 12:02 11/05/16 22:15 11/06/16 05:10 11/06/16 05:15 Glucose (Fingerstick) 116 mg/dL (70-99) 136 mg/dL (70-99) Influenza Type A Antigen Negative (NEGATIVE) Influenza Type B Antigen Negative (NEGATIVE) POC RSV Rapid Screen Negative (NEGATIVE) White Blood Count 10.1 x10^3/uL (4.0-11.0) Red Blood Count 3.05 x10^6/uL (3.50-5.40) Hemoglobin 8.8 g/dL (12.0-15.5) Hematocrit 27.6 % (36.0-47.0) Mean Corpuscular Volume 90 fL (79-100) Mean Corpuscular Hemoglobin 29 pg (25-35) Mean Corpuscular Hemoglobin Concent 32 g/dL (31-37) Red Cell Distribution Width 16.4 % (11.5-14.5) Platelet Count 309 x10^3/uL (140-400) Neutrophils (%) (Auto) 66 % (31-73) Lymphocytes (%) (Auto) 20 % (24-48) Monocytes (%) (Auto) 11 % (0-9) Eosinophils (%) (Auto) 3 % (0-3) Basophils (%) (Auto) 1 % (0-3) Neutrophils # (Auto) 6.7 x10^3uL (1.8-7.7) Lymphocytes # (Auto) 2.0 x10^3/uL (1.0-4.8) Monocytes # (Auto) 1.1 x10^3/uL (0.0-1.1) Eosinophils # (Auto) 0.3 x10^3/uL (0.0-0.7) Basophils # (Auto) 0.1 x10^3/uL (0.0-0.2) Sodium Level 152 mmol/L (136-145) Potassium Level 4.1 mmol/L (3.5-5.1) Chloride Level 118 mmol/L (98-107) Carbon Dioxide Level 27 mmol/L (21-32) Anion Gap 7 (6-14) Blood Urea Nitrogen 28 mg/dL (7-20) Creatinine 1.0 mg/dL (0.6-1.0) Estimated GFR (Cockcroft-Gault) 67.8 Glucose Level 134 mg/dL (70-99) Calcium Level 8.5 mg/dL (8.5-10.1) Phosphorus Level 2.3 mg/dL (2.6-4.7) Magnesium Level 2.3 mg/dL (1.8-2.4) Creatine Kinase 2766 U/L (26-192) Albumin 1.7 g/dL (3.4-5.0) Test 11/06/16 08:00 O2 Saturation 94 % (92-99) Arterial Blood pH 7.40 (7.35-7.45) Arterial Blood pCO2 at Patient Temp 44 mmHg (35-46) Arterial Blood pO2 at Patient Temp 75 mmHg (65-108) Arterial Blood HCO3 27 mmol/L (21-28) Arterial Blood Base Excess 2 mmol/L (-3-3) FiO2 50 Indication abdominal distention. Axial noncontrast images to the abdomen and pelvis were obtained. The study is limited in that no IV or gastrointestinal contrast was administered. No prior CT imaging of the abdomen or pelvis is available. There is volume loss at the lung bases left greater than right suggesting pneumonia. Clinical correlation advised. Nasogastric tube is noted in the fundus of the stomach. A Acu[place] catheter is noted in the urinary bladder. The liver appears unremarkable. The gallbladder is grossly normal. The spleen is quite small but otherwise unremarkable. Pancreatic abnormality is not seen. No adrenal or renal anomalies are seen. No acute finding is apparent the abdomen. No acute or significant findings seen in pelvis. There are degenerative changes about the left hip. Degenerative changes also seen in the lumbar spine. IMPRESSION: No acute finding seen in the abdomen or pelvis. Volume loss at the lung bases left greater than right compatible with atelectasis or 2 Micro SPUTUM CULT Final Routine respiratory kasey BLOOD CULTURE Preliminary NO GROWTH SO FAR URINE CULTURE RES 1 Final Klebsiella pneumoniae Antibiotic RSLT#1 Amoxicillin/Clavulanic Acid S Ampicillin R Cefepime S Ceftriaxone S Cefuroxime S Cephalothin S Ciprofloxacin S Ertapenem S Gentamicin S Imipenem S Levofloxacin S Nitrofurantoin S Piperacillin S Tetracycline S Tobramycin S Trimethoprim/Sulfa S Objective Assessment Klebsiella UTI, POA Fever Leukocytosis, trending down Respiratory failure Ángel pulmonary infiltrate, CHF vs pneumonia Acute renal failure, improving Rhabdomyolysis Schizophrenia Plan Plan of Care Donte Mejia Supportive care Attending Co-Sign The patient was seen and interviewed as well as examined at the bedside. The chart was reviewed. The case was discussed. Agree with the plan of care. d/c DAVE Ascencio APRN Nov 06, 2016 09:35 CAITY SMITH MD Nov 06, 2016 14:39
[2016-11-06] MEDS: VANCOMYCIN PER PHARMACY MC PRN (10:19)
--- NOTE | 2016-11-06 11:04 | PDOC ---
Renal-Progress Notes Subjective Notes Notes INTUBATED History of Present Illness Hx of present illness NONE Vitals Vitals Vital Signs Date Time Temp Pulse Resp B/P (MAP) Pulse Ox O2 Delivery O2 Flow Rate FiO2 11/06/16 08:00 97 Ventilator 11/06/16 06:12 98.7 98.7 11/06/16 06:00 97 21 146/77 (100) Weight Weight [ ] I.O. Intake and Output Intake and Output 11/06/16 07:00 Intake Total 3786.24 ml Output Total 2170 ml Balance 1616.24 ml IV Total 2204.24 ml Tube Feeding 1472 ml Blood Product IV Normal Saline Flush 110 ml Output Urine Total 2170 ml Labs Labs Laboratory Tests Test 11/05/16 12:02 11/05/16 22:15 11/06/16 05:10 11/06/16 05:15 Glucose (Fingerstick) 116 mg/dL (70-99) 136 mg/dL (70-99) Influenza Type A Antigen Negative (NEGATIVE) Influenza Type B Antigen Negative (NEGATIVE) POC RSV Rapid Screen Negative (NEGATIVE) White Blood Count 10.1 x10^3/uL (4.0-11.0) Red Blood Count 3.05 x10^6/uL (3.50-5.40) Hemoglobin 8.8 g/dL (12.0-15.5) Hematocrit 27.6 % (36.0-47.0) Mean Corpuscular Volume 90 fL (79-100) Mean Corpuscular Hemoglobin 29 pg (25-35) Mean Corpuscular Hemoglobin Concent 32 g/dL (31-37) Red Cell Distribution Width 16.4 % (11.5-14.5) Platelet Count 309 x10^3/uL (140-400) Neutrophils (%) (Auto) 66 % (31-73) Lymphocytes (%) (Auto) 20 % (24-48) Monocytes (%) (Auto) 11 % (0-9) Eosinophils (%) (Auto) 3 % (0-3) Basophils (%) (Auto) 1 % (0-3) Neutrophils # (Auto) 6.7 x10^3uL (1.8-7.7) Lymphocytes # (Auto) 2.0 x10^3/uL (1.0-4.8) Monocytes # (Auto) 1.1 x10^3/uL (0.0-1.1) Eosinophils # (Auto) 0.3 x10^3/uL (0.0-0.7) Basophils # (Auto) 0.1 x10^3/uL (0.0-0.2) Sodium Level 152 mmol/L (136-145) Potassium Level 4.1 mmol/L (3.5-5.1) Chloride Level 118 mmol/L (98-107) Carbon Dioxide Level 27 mmol/L (21-32) Anion Gap 7 (6-14) Blood Urea Nitrogen 28 mg/dL (7-20) Creatinine 1.0 mg/dL (0.6-1.0) Estimated GFR (Cockcroft-Gault) 67.8 Glucose Level 134 mg/dL (70-99) Calcium Level 8.5 mg/dL (8.5-10.1) Phosphorus Level 2.3 mg/dL (2.6-4.7) Magnesium Level 2.3 mg/dL (1.8-2.4) Creatine Kinase 2766 U/L (26-192) Albumin 1.7 g/dL (3.4-5.0) Test 11/06/16 08:00 O2 Saturation 94 % (92-99) Arterial Blood pH 7.40 (7.35-7.45) Arterial Blood pCO2 at Patient Temp 44 mmHg (35-46) Arterial Blood pO2 at Patient Temp 75 mmHg (65-108) Arterial Blood HCO3 27 mmol/L (21-28) Arterial Blood Base Excess 2 mmol/L (-3-3) FiO2 50 Micro Micro Microbiology 11/02/16 Blood Culture - Preliminary, Resulted NO GROWTH AFTER 3 DAYS 11/01/16 Sputum Culture - Final, Complete 11/01/16 Sputum Result 1 - Final, Complete 10/31/16 Urine Culture - Final, Complete 10/31/16 Urine Culture Result 1 (ISAIAS) - Final, Complete 10/31/16 Antimicrobic Susceptibility - Final, Complete Review of Systems Constitutional: yes: no symptom reported Physical Exam General Appearance: no apparent distress Skin: warm Heart: S1S2, RRR Abdomen: soft, bowel sounds present Extremities: pulses present Neurology: other (SEDATED) Assessment Assessment IMP RESP FAILURE UTI LEUCOCYTOSIS-BETTER HYPERNATREMIA DIASTOLIC CHF-COMPENSATED POSSIBLE PNEUMONIA MICHI-IMPROVING WITH CR DOWN TO 1.2 PLAN VENT SUPPORT CONT TF WATER FLUSHES STARTED TODAY STOP HER HCTZ FOR NOW CONT ANTIBIOTICS TITI FERRELL MD Nov 06, 2016 11:04
--- NOTE | 2016-11-06 12:52 | PDOC ---
PROGRESS NOTES Chief Complaint Chief Complaint Complaint: respiratory failure Assessment and plan Acute hypoxic and hypercapnic resp failure with HAP, Failed on bipap and on mechanical ventilation from 10/31/2016 Fever and leukocytosis: Better today, no fevers for hours KPNA urinary tract infection, present on admission Healthcare associated pneumonia possible gram-negative rods COPD morbid obesity Congestive heart failure , LV ejection fraction 65% Ckd with jerrod, vasomotor HX of schizophrenia HTN tobaccoism Elevated CPK, unclear etiology Hypernatremia hypophosphatemia moderate malnutrition PLAN: IV Zosyn and vancomycin and the Levaquin. Vancomycin renal dosing, Ventilator management by pulmonology dc NS, add 1/2 NS, lasix 20mg iv x1 , add free h2o through OGT feeding CT abdomen pelvis no acute findings noted Chest x-ray reveals reviewed ABGs are improving, clinically no change Monitor CPK elevated, no obvious signs of trauma seen on exam, externally, discussed with RN-no bruising noted on the posterior aspect of the body. Order myoglobin labs pending DVT prophylaxis with Lovenox Labs reviewed Discussed with RN Periodic nebulizations as per respiratory therapy. Prognosis guarded, condition critical. Place PICC line No immediate family members available. SW consult for DPOA cc time 33 min History of Present Illness History of Present Illness no BM, able to pass flatus Distended abdomen intubated ,sedated, PEEP slightly better at 8 now, 50% fio2 high Na Vitals Vitals Vital Signs Date Time Temp Pulse Resp B/P (MAP) Pulse Ox O2 Delivery O2 Flow Rate FiO2 11/06/16 11:50 97 Ventilator 11/06/16 06:12 98.7 98.7 11/06/16 06:00 97 21 146/77 (100) Physical Exam Physical Exam intubated, sedated General: Other (serrated, intubated,) Heart: Regular rate (SR), Normal S1, Normal S2, Other Lungs: Crackles Abdomen: Soft, No tenderness, Other (obese, mild distended) Extremities: No cyanosis, Other (1+ bilateral LE pitting edema) Skin: No breakdown, No significant lesion Labs LABS Laboratory Tests Test 11/05/16 22:15 11/06/16 05:10 11/06/16 05:15 11/06/16 08:00 Influenza Type A Antigen Negative (NEGATIVE) Influenza Type B Antigen Negative (NEGATIVE) POC RSV Rapid Screen Negative (NEGATIVE) Glucose (Fingerstick) 136 mg/dL (70-99) White Blood Count 10.1 x10^3/uL (4.0-11.0) Red Blood Count 3.05 x10^6/uL (3.50-5.40) Hemoglobin 8.8 g/dL (12.0-15.5) Hematocrit 27.6 % (36.0-47.0) Mean Corpuscular Volume 90 fL (79-100) Mean Corpuscular Hemoglobin 29 pg (25-35) Mean Corpuscular Hemoglobin Concent 32 g/dL (31-37) Red Cell Distribution Width 16.4 % (11.5-14.5) Platelet Count 309 x10^3/uL (140-400) Neutrophils (%) (Auto) 66 % (31-73) Lymphocytes (%) (Auto) 20 % (24-48) Monocytes (%) (Auto) 11 % (0-9) Eosinophils (%) (Auto) 3 % (0-3) Basophils (%) (Auto) 1 % (0-3) Neutrophils # (Auto) 6.7 x10^3uL (1.8-7.7) Lymphocytes # (Auto) 2.0 x10^3/uL (1.0-4.8) Monocytes # (Auto) 1.1 x10^3/uL (0.0-1.1) Eosinophils # (Auto) 0.3 x10^3/uL (0.0-0.7) Basophils # (Auto) 0.1 x10^3/uL (0.0-0.2) Sodium Level 152 mmol/L (136-145) Potassium Level 4.1 mmol/L (3.5-5.1) Chloride Level 118 mmol/L (98-107) Carbon Dioxide Level 27 mmol/L (21-32) Anion Gap 7 (6-14) Blood Urea Nitrogen 28 mg/dL (7-20) Creatinine 1.0 mg/dL (0.6-1.0) Estimated GFR (Cockcroft-Gault) 67.8 Glucose Level 134 mg/dL (70-99) Calcium Level 8.5 mg/dL (8.5-10.1) Phosphorus Level 2.3 mg/dL (2.6-4.7) Magnesium Level 2.3 mg/dL (1.8-2.4) Creatine Kinase 2766 U/L (26-192) Albumin 1.7 g/dL (3.4-5.0) O2 Saturation 94 % (92-99) Arterial Blood pH 7.40 (7.35-7.45) Arterial Blood pCO2 at Patient Temp 44 mmHg (35-46) Arterial Blood pO2 at Patient Temp 75 mmHg (65-108) Arterial Blood HCO3 27 mmol/L (21-28) Arterial Blood Base Excess 2 mmol/L (-3-3) FiO2 50 Review of Systems Review of Systems no fever, chills, Comment Review of Relevant I have reviewed the following items asif (where applicable) has been applied. Labs Laboratory Tests Test 11/04/16 16:01 11/04/16 18:54 11/04/16 20:00 11/04/16 23:33 Glucose (Fingerstick) 98 mg/dL (70-99) 120 mg/dL (70-99) 127 mg/dL (70-99) Vancomycin Level Trough 17.8 mcg/mL (10.0-20.0) Vancomycin Last Dose Date 11/04/16 Vancomycin Last Dose Time 0200 Test 11/05/16 05:39 11/05/16 05:40 11/05/16 08:00 11/05/16 12:02 Glucose (Fingerstick) 129 mg/dL (70-99) 116 mg/dL (70-99) White Blood Count 10.1 x10^3/uL (4.0-11.0) Red Blood Count 3.16 x10^6/uL (3.50-5.40) Hemoglobin 9.3 g/dL (12.0-15.5) Hematocrit 28.6 % (36.0-47.0) Mean Corpuscular Volume 91 fL (79-100) Mean Corpuscular Hemoglobin 30 pg (25-35) Mean Corpuscular Hemoglobin Concent 33 g/dL (31-37) Red Cell Distribution Width 16.1 % (11.5-14.5) Platelet Count 274 x10^3/uL (140-400) Neutrophils (%) (Auto) 69 % (31-73) Lymphocytes (%) (Auto) 22 % (24-48) Monocytes (%) (Auto) 8 % (0-9) Eosinophils (%) (Auto) 1 % (0-3) Basophils (%) (Auto) 1 % (0-3) Neutrophils # (Auto) 7.0 x10^3uL (1.8-7.7) Lymphocytes # (Auto) 2.2 x10^3/uL (1.0-4.8) Monocytes # (Auto) 0.8 x10^3/uL (0.0-1.1) Eosinophils # (Auto) 0.1 x10^3/uL (0.0-0.7) Basophils # (Auto) 0.0 x10^3/uL (0.0-0.2) Sodium Level 152 mmol/L (136-145) Potassium Level 4.2 mmol/L (3.5-5.1) Chloride Level 116 mmol/L (98-107) Carbon Dioxide Level 27 mmol/L (21-32) Anion Gap 9 (6-14) Blood Urea Nitrogen 33 mg/dL (7-20) Creatinine 1.2 mg/dL (0.6-1.0) Estimated GFR (Cockcroft-Gault) 54.9 Glucose Level 138 mg/dL (70-99) Calcium Level 8.3 mg/dL (8.5-10.1) Creatine Kinase 4026 U/L (26-192) Myoglobin 2851 ng/mL (9-82) O2 Saturation 95 % (92-99) Arterial Blood pH 7.44 (7.35-7.45) Arterial Blood pCO2 at Patient Temp 40 mmHg (35-46) Arterial Blood pO2 at Patient Temp 74 mmHg (65-108) Arterial Blood HCO3 26 mmol/L (21-28) Arterial Blood Base Excess 2 mmol/L (-3-3) FiO2 50 Test 11/05/16 22:15 11/06/16 05:10 11/06/16 05:15 11/06/16 08:00 Influenza Type A Antigen Negative (NEGATIVE) Influenza Type B Antigen Negative (NEGATIVE) POC RSV Rapid Screen Negative (NEGATIVE) Glucose (Fingerstick) 136 mg/dL (70-99) White Blood Count 10.1 x10^3/uL (4.0-11.0) Red Blood Count 3.05 x10^6/uL (3.50-5.40) Hemoglobin 8.8 g/dL (12.0-15.5) Hematocrit 27.6 % (36.0-47.0) Mean Corpuscular Volume 90 fL (79-100) Mean Corpuscular Hemoglobin 29 pg (25-35) Mean Corpuscular Hemoglobin Concent 32 g/dL (31-37) Red Cell Distribution Width 16.4 % (11.5-14.5) Platelet Count 309 x10^3/uL (140-400) Neutrophils (%) (Auto) 66 % (31-73) Lymphocytes (%) (Auto) 20 % (24-48) Monocytes (%) (Auto) 11 % (0-9) Eosinophils (%) (Auto) 3 % (0-3) Basophils (%) (Auto) 1 % (0-3) Neutrophils # (Auto) 6.7 x10^3uL (1.8-7.7) Lymphocytes # (Auto) 2.0 x10^3/uL (1.0-4.8) Monocytes # (Auto) 1.1 x10^3/uL (0.0-1.1) Eosinophils # (Auto) 0.3 x10^3/uL (0.0-0.7) Basophils # (Auto) 0.1 x10^3/uL (0.0-0.2) Sodium Level 152 mmol/L (136-145) Potassium Level 4.1 mmol/L (3.5-5.1) Chloride Level 118 mmol/L (98-107) Carbon Dioxide Level 27 mmol/L (21-32) Anion Gap 7 (6-14) Blood Urea Nitrogen 28 mg/dL (7-20) Creatinine 1.0 mg/dL (0.6-1.0) Estimated GFR (Cockcroft-Gault) 67.8 Glucose Level 134 mg/dL (70-99) Calcium Level 8.5 mg/dL (8.5-10.1) Phosphorus Level 2.3 mg/dL (2.6-4.7) Magnesium Level 2.3 mg/dL (1.8-2.4) Creatine Kinase 2766 U/L (26-192) Albumin 1.7 g/dL (3.4-5.0) O2 Saturation 94 % (92-99) Arterial Blood pH 7.40 (7.35-7.45) Arterial Blood pCO2 at Patient Temp 44 mmHg (35-46) Arterial Blood pO2 at Patient Temp 75 mmHg (65-108) Arterial Blood HCO3 27 mmol/L (21-28) Arterial Blood Base Excess 2 mmol/L (-3-3) FiO2 50 Laboratory Tests Test 11/05/16 22:15 11/06/16 05:10 11/06/16 05:15 11/06/16 08:00 Influenza Type A Antigen Negative (NEGATIVE) Influenza Type B Antigen Negative (NEGATIVE) POC RSV Rapid Screen Negative (NEGATIVE) Glucose (Fingerstick) 136 mg/dL (70-99) White Blood Count 10.1 x10^3/uL (4.0-11.0) Red Blood Count 3.05 x10^6/uL (3.50-5.40) Hemoglobin 8.8 g/dL (12.0-15.5) Hematocrit 27.6 % (36.0-47.0) Mean Corpuscular Volume 90 fL (79-100) Mean Corpuscular Hemoglobin 29 pg (25-35) Mean Corpuscular Hemoglobin Concent 32 g/dL (31-37) Red Cell Distribution Width 16.4 % (11.5-14.5) Platelet Count 309 x10^3/uL (140-400) Neutrophils (%) (Auto) 66 % (31-73) Lymphocytes (%) (Auto) 20 % (24-48) Monocytes (%) (Auto) 11 % (0-9) Eosinophils (%) (Auto) 3 % (0-3) Basophils (%) (Auto) 1 % (0-3) Neutrophils # (Auto) 6.7 x10^3uL (1.8-7.7) Lymphocytes # (Auto) 2.0 x10^3/uL (1.0-4.8) Monocytes # (Auto) 1.1 x10^3/uL (0.0-1.1) Eosinophils # (Auto) 0.3 x10^3/uL (0.0-0.7) Basophils # (Auto) 0.1 x10^3/uL (0.0-0.2) Sodium Level 152 mmol/L (136-145) Potassium Level 4.1 mmol/L (3.5-5.1) Chloride Level 118 mmol/L (98-107) Carbon Dioxide Level 27 mmol/L (21-32) Anion Gap 7 (6-14) Blood Urea Nitrogen 28 mg/dL (7-20) Creatinine 1.0 mg/dL (0.6-1.0) Estimated GFR (Cockcroft-Gault) 67.8 Glucose Level 134 mg/dL (70-99) Calcium Level 8.5 mg/dL (8.5-10.1) Phosphorus Level 2.3 mg/dL (2.6-4.7) Magnesium Level 2.3 mg/dL (1.8-2.4) Creatine Kinase 2766 U/L (26-192) Albumin 1.7 g/dL (3.4-5.0) O2 Saturation 94 % (92-99) Arterial Blood pH 7.40 (7.35-7.45) Arterial Blood pCO2 at Patient Temp 44 mmHg (35-46) Arterial Blood pO2 at Patient Temp 75 mmHg (65-108) Arterial Blood HCO3 27 mmol/L (21-28) Arterial Blood Base Excess 2 mmol/L (-3-3) FiO2 50 Microbiology 11/02/16 Blood Culture - Preliminary, Resulted NO GROWTH AFTER 3 DAYS 11/01/16 Sputum Culture - Final, Complete 11/01/16 Sputum Result 1 - Final, Complete 10/31/16 Urine Culture - Final, Complete 10/31/16 Urine Culture Result 1 (ISAIAS) - Final, Complete 10/31/16 Antimicrobic Susceptibility - Final, Complete Medications Current Medications Methylprednisolone Sodium Succinate (SOLU-Medrol 125MG VIAL) 125 mg 1X ONCE IV Last administered on 10/31/16 11:18; Start 10/31/16 at 11:00; Stop 10/31/16 at 11:01; Status DC Albuterol/ Ipratropium (Duoneb) 3 ml 1X ONCE NEB Last administered on 11:00; Start 10/31/16 at 11:00; Stop 10/31/16 at 11:01; Status DC Furosemide (Lasix) 40 mg 1X ONCE IVP Last administered on 10/31/16 11:17; Start 10/31/16 at 11:15; Stop 10/31/16 at 11:16; Status DC Vancomycin HCl (Vanco Per Pharmacy) 1 each PRN DAILY PRN MC SEE COMMENTS Last administered on 11/06/16t 10:19; Start 10/31/16 at 11:30 Piperacillin Sod/ Tazobactam Sod (Zosyn Per Pharmacy) 1 each PRN DAILY PRN MC SEE COMMENTS; Start 10/31/16 at 11:30; Stop 11/02/16 at 08:44; Status DC Levofloxacin/ Dextrose (Levaquin Per Pharmacy) 1 each PRN DAILY PRN MC SEE COMMENTS; Start 10/31/16 at 11:30; Stop 10/31/16 at 12:57; Status DC Vancomycin HCl 2 gm/Sodium Chloride 500 ml @ 250 mls/hr 1X ONCE IV Last administered on 10/31/16 14:30; Start 10/31/16 at 11:30; Stop 10/31/16 at 13:29 ; Status DC Levofloxacin/ Dextrose 150 ml @ 100 mls/hr ONCE ONCE IV Last administered on 10/31/16 12:45; Start 10/31/16 at 11:30; Stop 10/31/16 at 12:59; Status DC Piperacillin Sod/ Tazobactam Sod 3.375 gm/Sodium Chloride 50 ml @ 100 mls/hr ONCE ONCE IV Last administered on 10/31/16 11:38; Start 10/31/16 at 11:45; Stop 10/31/16 at 12:14; Status DC Levofloxacin/ Dextrose 150 ml @ 100 mls/hr Q48H IV Last administered on 10:54; Start 11/02/16 at 10:00; Stop 11/05/16 at 09:18; Status DC Piperacillin Sod/ Tazobactam Sod 3.375 gm/Sodium Chloride 50 ml @ 100 mls/hr Q6HRS IV Last administered on 11/02/16 05:44; Start 10/31/16 at 18:00; Stop at 08:47; Status DC Acetaminophen (Tylenol) 650 mg PRN Q6HRS PRN PO FEVER Last administered on 11/01 20:26; Start 10/31/16 at 15:15; Stop 11/02/16 at 07:45; Status DC Ondansetron HCl (Zofran) 4 mg PRN Q6HRS PRN IV NAUSEA/VOMITING; Start 10/31/16 at 15:15 Morphine Sulfate 2 mg PRN Q2HR PRN IV PAIN Last administered on 11/01/16 15:48 ; Start 10/31/16 at 15:15 Tramadol HCl (Ultram) 50 mg PRN Q6HRS PRN PO PAIN; Start 10/31/16 at 15:15 Hydralazine HCl (Apresoline) 10 mg PRN Q4HRS PRN IVP ELEVATED BP, SEE COMMENTS ; Start 10/31/16 at 15:15 Docusate Sodium (Colace) 100 mg PRN DAILY PRN PO CONSTIPATION Last administered on 11/05/16 12:04; Start 10/31/16 at 15:15 Albuterol/ Ipratropium (Duoneb) 3 ml RTQID NEB Last administered on 11/06/16 11:50; Start 10/31/16 at 16:00 Albuterol Sulfate (Ventolin Neb Soln) 2.5 mg PRN Q4HRS PRN NEB SHORTNESS OF BREATH; Start 10/31/16 at 15:15 Heparin Sodium (Porcine) (Heparin Sq) 5,000 unit Q8HRS SQ Last administered on 11/06/16 06:14; Start 10/31/16 at 22:00 Famotidine (Pepcid) 20 mg QHS IVP Last administered on 11/05/16 21:03; Start 10/31/16 at 21:00 Vancomycin HCl 2 gm/Sodium Chloride 500 ml @ 250 mls/hr Q24H IV Last administered on 11/02/16 14:14; Start 11/01/16 at 14:00; Stop 11/02/16 at 14:24 ; Status DC Vancomycin HCl 1 each 1X ONCE MC Last administered on 11/02/16 13:30; Start 11/02/16 at 13:30; Stop 11/02/16 at 13:31; Status DC Sodium Chloride 1,000 ml @ 80 mls/hr [id number] IV Last administered on 08:27; Start 10/31/16 at 16:15; Stop 11/05/16 at 08:31; Status DC Sodium Chloride 1,000 ml @ 1,000 mls/hr 1X ONCE IV Last administered on 18:04; Start 10/31/16 at 14:00; Stop 10/31/16 at 17:23; Status DC Sodium Chloride 500 ml @ 500 mls/hr 1X ONCE IV Last administered on 17:30; Start 10/31/16 at 17:30; Stop 10/31/16 at 18:29; Status DC Fentanyl Citrate 30 ml @ 0 mls/hr CONT PRN IV PROTOCOL Last administered on 04:58; Start 10/31/16 at 18:30 Propofol 100 ml @ 0 mls/hr CONT PRN IV PER PROTOCOL Last administered on 19:00; Start 10/31/16 at 18:30 Chlorhexidine Gluconate (Peridex) 15 ml BID MM Last administered on 11/06/16 09:12; Start 10/31/16 at 21:00 Artificial Tears (Artificial Tears) 1 drop PRN Q1HR PRN OU DRY EYE; Start 10/31 at 18:30 Midazolam HCl 100 ml @ 0 mls/hr CONT PRN IV PER PROTOCOL Last administered on 23:20; Start 10/31/16 at 18:30 Succinylcholine Chloride (Anectine) 200 mg STK-MED ONCE .ROUTE ; Start 10/31/16 at 18:43; Stop 10/31/16 at 18:44; Status DC Midazolam HCl (Versed) 5 mg STK-MED ONCE .ROUTE ; Start 10/31/16 at 18:45; Stop 10/31/16 at 18:46; Status DC Midazolam HCl (Versed) 5 mg 1X ONCE IV Last administered on 10/31/16 19:30; Start 10/31/16 at 19:30; Stop 10/31/16 at 19:31; Status DC Succinylcholine Chloride (Anectine) 200 mg STK-MED ONCE .ROUTE ; Start 10/31/16 at 18:45; Stop 11/01/16 at 08:13; Status DC Furosemide (Lasix) 20 mg 1X ONCE IVP Last administered on 11/01/16 13:48; Start 11/01/16 at 13:30; Stop 11/01/16 at 13:31; Status DC Sodium Chloride 500 ml @ 500 mls/hr 1X ONCE IV Last administered on 23:09; Start 11/01/16 at 23:15; Stop 11/02/16 at 00:14; Status DC Acetaminophen (Tylenol) 650 mg PRN Q6HRS PRN PEG MILD PAIN / TEMP Last administered on 11/05/16 16:39; Start 11/02/16 at 07:45 Piperacillin Sod/ Tazobactam Sod 4.5 gm/Sodium Chloride 100 ml @ 200 mls/hr Q6HRS IV Last administered on 11/06/16 05:21; Start 11/02/16 at 12:00 Sodium Chloride 500 ml @ 500 mls/hr 1X ONCE IV Last administered on 14:10; Start 11/02/16 at 13:00; Stop 11/02/16 at 13:59; Status DC Sodium Chloride 1,000 ml @ 75 mls/hr [id number] IV ; Start 11/02/16 at 13:00; Stop 11/02/16 at 13:25; Status DC Vancomycin HCl 1.75 gm/Sodium Chloride 500 ml @ 250 mls/hr Q18H IV Last administered on 11/06/16 09:13; Start 11/03/16 at 08:00 Vancomycin HCl 1 each 1X ONCE MC Last administered on 11/04/16 19:30; Start 11/04/16 at 19:30; Stop 11/04/16 at 19:31; Status DC Metoclopramide HCl (Reglan) 10 mg 1X ONCE IV Last administered on 11/03/16 16 :35; Start 11/03/16 at 15:45; Stop 11/03/16 at 15:46; Status DC Furosemide (Lasix) 20 mg 1X ONCE IVP Last administered on 11/04/16 10:54; Start 11/04/16 at 10:30; Stop 11/04/16 at 10:31; Status DC Metoclopramide HCl (Reglan) 10 mg 1X ONCE IV Last administered on 11/04/16 17 :15; Start 11/04/16 at 17:15; Stop 11/04/16 at 17:16; Status DC Magnesium Sulfate/ Dextrose 50 ml @ 25 mls/hr PRN DAILY PRN IV for Mag < 1.7 on am labs; Start 11/05/16 at 08:15 Hydrochlorothiazide (Hydrodiuril) 25 mg DAILY PO Last administered on 12:04; Start 11/05/16 at 09:00; Stop 11/06/16 at 11:08; Status DC Levofloxacin/ Dextrose 150 ml @ 100 mls/hr Q24H IV Last administered on 10:00; Start 11/05/16 at 10:00 Sodium Chloride 1,000 ml @ 75 mls/hr [id number] IV Last administered on 04:54; Start 11/05/16 at 15:45; Stop 11/06/16 at 09:26; Status DC Sodium Chloride 1,000 ml @ 75 mls/hr [id number] IV Last administered on 09:38; Start 11/06/16 at 09:30 Furosemide (Lasix) 20 mg 1X ONCE IVP Last administered on 11/06/16 09:38; Start 11/06/16 at 09:30; Stop 11/06/16 at 09:31; Status DC Active Scripts Active Reported Trazodone Hcl 100 Mg Tablet 100 Mg PO HS Polyethylene Glycol 3350 255 Gm Powder 17 Gm PO DAILY Olanzapine 20 Mg Tablet 2 Tab PO QHS Montelukast Sodium Tablet (Montelukast Sodium) 10 Mg Tablet 10 Mg PO HS Meloxicam 15 Mg Tablet 1 Tab PO DAILY Losartan Potassium 50 Mg Tablet 50 Mg PO DAILY Lorazepam 1 Mg Tablet 1 Mg PO HS Lasix (Furosemide) 40 Mg Tablet 40 Mg PO PRN DAILY Hydrochlorothiazide Tablet (Hydrochlorothiazide) 25 Mg Tablet 25 Mg PO DAILY Folic Acid 1 Mg Tablet 1 Mg PO DAILY Fluoxetine Hcl 40 Mg Capsule 40 Mg PO DAILY Famotidine 20 Mg Tablet 20 Mg PO BID Duoneb 0.5-3(2.5) Mg/3 Ml (Albuterol/Ipratropium) 3 Ml Ampul.neb 3 Ml NEB QID Docusate Sodium 100 Mg Capsule 1 Cap PO BID Clonidine Hcl 0.1 Mg Tablet 0.1 Mg PO QID Cetirizine Hcl 10 Mg Tablet 1 Tab PO DAILY Vitals/I & O Vital Sign - Last 24 Hours 11/05/16 11/05/16 11/05/16 11/05/16 13:00 14:00 15:00 15:48 Pulse 100 96 100 Resp 20 20 20 B/P (MAP) 125/71 (89) 120/69 (86) 133/71 (91) Pulse Ox 96 98 99 98 O2 Delivery Ventilator Ventilator Ventilator Ventilator 11/05/16 11/05/16 11/05/16 11/05/16 16:00 16:00 17:00 17:55 Temp 100.4 100.4 Pulse 107 105 Resp 20 20 B/P (MAP) 111/60 (77) 107/69 (82) Pulse Ox 97 97 98 O2 Delivery Ventilator Mechanical Ventilator Ventilator Ventilator 11/05/16 11/05/16 11/05/16 11/05/16 18:00 19:00 20:00 20:00 Temp 99.1 99.1 Pulse 105 91 89 Resp 20 20 19 B/P (MAP) 107/69 (82) 105/63 (77) 102/65 (77) Pulse Ox 97 99 98 O2 Delivery Ventilator Ventilator Mechanical Ventilator Ventilator 11/05/16 11/05/16 11/05/16 11/05/16 20:03 21:00 22:00 23:00 Temp 98.7 98.7 Pulse 90 97 97 Resp 20 21 20 B/P (MAP) 106/64 (78) 115/70 (85) 114/68 (83) Pulse Ox 99 99 98 97 O2 Delivery Ventilator Ventilator 11/05/16 11/06/16 11/06/16 11/06/16 23:54 00:00 00:00 01:00 Pulse 92 99 Resp 22 20 B/P (MAP) 116/72 (87) 131/73 (92) Pulse Ox 98 98 97 O2 Delivery Ventilator Ventilator Mechanical Ventilator Ventilator 11/06/16 11/06/16 11/06/16 11/06/16 02:00 03:00 03:00 04:00 Temp 99.3 99.3 Pulse 99 98 105 Resp 20 21 20 B/P (MAP) 127/75 (92) 145/75 (98) 135/90 (105) Pulse Ox 97 98 97 97 O2 Delivery Ventilator Ventilator Ventilator Ventilator 11/06/16 11/06/16 11/06/16 11/06/16 04:00 04:58 05:00 05:24 Pulse 101 Resp 21 20 B/P (MAP) 140/77 (98) Pulse Ox 97 97 97 O2 Delivery Mechanical Ventilator Ventilator Ventilator Ventilator 11/06/16 11/06/16 11/06/16 11/06/16 05:28 06:00 06:12 08:00 Temp 98.7 98.7 Pulse 97 Resp 20 21 B/P (MAP) 146/77 (100) Pulse Ox 97 97 97 O2 Delivery Ventilator Ventilator Ventilator 11/06/16 11/06/16 09:55 11:50 Pulse Ox 98 97 O2 Delivery Ventilator Ventilator Intake and Output 11/05/16 11/05/16 11/06/16 15:00 23:00 07:00 Intake Total 357 ml 1689.5 ml 1739.74 ml Output Total 770 ml 580 ml 820 ml Balance -413 ml 1109.5 ml 919.74 ml SARA ANDERSON MD Nov 06, 2016 12:52
[2016-11-06] MEDS: POTASSIUM PHOSPHATE DIBASIC 10 MMOL in IV NORMAL SALINE 100ML 100 ML IV SCH ×2 (15:03→20:16)
--- NOTE | 2016-11-06 15:30 | PDOC ---
PULMONARY PROGRESS NOTES Subjective PT SEDATED Vitals Vital Signs Date Time Temp Pulse Resp B/P (MAP) Pulse Ox O2 Delivery O2 Flow Rate FiO2 11/06/16 12:00 Mechanical Ventilator 11/06/16 11:50 97 11/06/16 06:12 98.7 98.7 11/06/16 06:00 97 21 146/77 (100) HEENT: Other (nc at perrl, orally intubated, nose clear neck + jvd, no lap, no thyromegaly) Lungs: Crackles Cardiovascular: S1, S2 Abdomen: Soft, Non-tender, Other (no mass) Skin: Warm Labs Laboratory Tests Test 11/04/16 16:01 11/04/16 18:54 11/04/16 20:00 11/04/16 23:33 Glucose (Fingerstick) 98 mg/dL (70-99) 120 mg/dL (70-99) 127 mg/dL (70-99) Vancomycin Level Trough 17.8 mcg/mL (10.0-20.0) Vancomycin Last Dose Date 11/04/16 Vancomycin Last Dose Time 0200 Test 11/05/16 05:39 11/05/16 05:40 11/05/16 08:00 11/05/16 12:02 Glucose (Fingerstick) 129 mg/dL (70-99) 116 mg/dL (70-99) White Blood Count 10.1 x10^3/uL (4.0-11.0) Red Blood Count 3.16 x10^6/uL (3.50-5.40) Hemoglobin 9.3 g/dL (12.0-15.5) Hematocrit 28.6 % (36.0-47.0) Mean Corpuscular Volume 91 fL (79-100) Mean Corpuscular Hemoglobin 30 pg (25-35) Mean Corpuscular Hemoglobin Concent 33 g/dL (31-37) Red Cell Distribution Width 16.1 % (11.5-14.5) Platelet Count 274 x10^3/uL (140-400) Neutrophils (%) (Auto) 69 % (31-73) Lymphocytes (%) (Auto) 22 % (24-48) Monocytes (%) (Auto) 8 % (0-9) Eosinophils (%) (Auto) 1 % (0-3) Basophils (%) (Auto) 1 % (0-3) Neutrophils # (Auto) 7.0 x10^3uL (1.8-7.7) Lymphocytes # (Auto) 2.2 x10^3/uL (1.0-4.8) Monocytes # (Auto) 0.8 x10^3/uL (0.0-1.1) Eosinophils # (Auto) 0.1 x10^3/uL (0.0-0.7) Basophils # (Auto) 0.0 x10^3/uL (0.0-0.2) Sodium Level 152 mmol/L (136-145) Potassium Level 4.2 mmol/L (3.5-5.1) Chloride Level 116 mmol/L (98-107) Carbon Dioxide Level 27 mmol/L (21-32) Anion Gap 9 (6-14) Blood Urea Nitrogen 33 mg/dL (7-20) Creatinine 1.2 mg/dL (0.6-1.0) Estimated GFR (Cockcroft-Gault) 54.9 Glucose Level 138 mg/dL (70-99) Calcium Level 8.3 mg/dL (8.5-10.1) Creatine Kinase 4026 U/L (26-192) Myoglobin 2851 ng/mL (9-82) O2 Saturation 95 % (92-99) Arterial Blood pH 7.44 (7.35-7.45) Arterial Blood pCO2 at Patient Temp 40 mmHg (35-46) Arterial Blood pO2 at Patient Temp 74 mmHg (65-108) Arterial Blood HCO3 26 mmol/L (21-28) Arterial Blood Base Excess 2 mmol/L (-3-3) FiO2 50 Test 11/05/16 22:15 11/06/16 05:10 11/06/16 05:15 11/06/16 08:00 Influenza Type A Antigen Negative (NEGATIVE) Influenza Type B Antigen Negative (NEGATIVE) POC RSV Rapid Screen Negative (NEGATIVE) Glucose (Fingerstick) 136 mg/dL (70-99) White Blood Count 10.1 x10^3/uL (4.0-11.0) Red Blood Count 3.05 x10^6/uL (3.50-5.40) Hemoglobin 8.8 g/dL (12.0-15.5) Hematocrit 27.6 % (36.0-47.0) Mean Corpuscular Volume 90 fL (79-100) Mean Corpuscular Hemoglobin 29 pg (25-35) Mean Corpuscular Hemoglobin Concent 32 g/dL (31-37) Red Cell Distribution Width 16.4 % (11.5-14.5) Platelet Count 309 x10^3/uL (140-400) Neutrophils (%) (Auto) 66 % (31-73) Lymphocytes (%) (Auto) 20 % (24-48) Monocytes (%) (Auto) 11 % (0-9) Eosinophils (%) (Auto) 3 % (0-3) Basophils (%) (Auto) 1 % (0-3) Neutrophils # (Auto) 6.7 x10^3uL (1.8-7.7) Lymphocytes # (Auto) 2.0 x10^3/uL (1.0-4.8) Monocytes # (Auto) 1.1 x10^3/uL (0.0-1.1) Eosinophils # (Auto) 0.3 x10^3/uL (0.0-0.7) Basophils # (Auto) 0.1 x10^3/uL (0.0-0.2) Sodium Level 152 mmol/L (136-145) Potassium Level 4.1 mmol/L (3.5-5.1) Chloride Level 118 mmol/L (98-107) Carbon Dioxide Level 27 mmol/L (21-32) Anion Gap 7 (6-14) Blood Urea Nitrogen 28 mg/dL (7-20) Creatinine 1.0 mg/dL (0.6-1.0) Estimated GFR (Cockcroft-Gault) 67.8 Glucose Level 134 mg/dL (70-99) Calcium Level 8.5 mg/dL (8.5-10.1) Phosphorus Level 2.3 mg/dL (2.6-4.7) Magnesium Level 2.3 mg/dL (1.8-2.4) Creatine Kinase 2766 U/L (26-192) Albumin 1.7 g/dL (3.4-5.0) O2 Saturation 94 % (92-99) Arterial Blood pH 7.40 (7.35-7.45) Arterial Blood pCO2 at Patient Temp 44 mmHg (35-46) Arterial Blood pO2 at Patient Temp 75 mmHg (65-108) Arterial Blood HCO3 27 mmol/L (21-28) Arterial Blood Base Excess 2 mmol/L (-3-3) FiO2 50 Laboratory Tests Test 11/05/16 22:15 11/06/16 05:10 11/06/16 05:15 11/06/16 08:00 Influenza Type A Antigen Negative (NEGATIVE) Influenza Type B Antigen Negative (NEGATIVE) POC RSV Rapid Screen Negative (NEGATIVE) Glucose (Fingerstick) 136 mg/dL (70-99) White Blood Count 10.1 x10^3/uL (4.0-11.0) Red Blood Count 3.05 x10^6/uL (3.50-5.40) Hemoglobin 8.8 g/dL (12.0-15.5) Hematocrit 27.6 % (36.0-47.0) Mean Corpuscular Volume 90 fL (79-100) Mean Corpuscular Hemoglobin 29 pg (25-35) Mean Corpuscular Hemoglobin Concent 32 g/dL (31-37) Red Cell Distribution Width 16.4 % (11.5-14.5) Platelet Count 309 x10^3/uL (140-400) Neutrophils (%) (Auto) 66 % (31-73) Lymphocytes (%) (Auto) 20 % (24-48) Monocytes (%) (Auto) 11 % (0-9) Eosinophils (%) (Auto) 3 % (0-3) Basophils (%) (Auto) 1 % (0-3) Neutrophils # (Auto) 6.7 x10^3uL (1.8-7.7) Lymphocytes # (Auto) 2.0 x10^3/uL (1.0-4.8) Monocytes # (Auto) 1.1 x10^3/uL (0.0-1.1) Eosinophils # (Auto) 0.3 x10^3/uL (0.0-0.7) Basophils # (Auto) 0.1 x10^3/uL (0.0-0.2) Sodium Level 152 mmol/L (136-145) Potassium Level 4.1 mmol/L (3.5-5.1) Chloride Level 118 mmol/L (98-107) Carbon Dioxide Level 27 mmol/L (21-32) Anion Gap 7 (6-14) Blood Urea Nitrogen 28 mg/dL (7-20) Creatinine 1.0 mg/dL (0.6-1.0) Estimated GFR (Cockcroft-Gault) 67.8 Glucose Level 134 mg/dL (70-99) Calcium Level 8.5 mg/dL (8.5-10.1) Phosphorus Level 2.3 mg/dL (2.6-4.7) Magnesium Level 2.3 mg/dL (1.8-2.4) Creatine Kinase 2766 U/L (26-192) Albumin 1.7 g/dL (3.4-5.0) O2 Saturation 94 % (92-99) Arterial Blood pH 7.40 (7.35-7.45) Arterial Blood pCO2 at Patient Temp 44 mmHg (35-46) Arterial Blood pO2 at Patient Temp 75 mmHg (65-108) Arterial Blood HCO3 27 mmol/L (21-28) Arterial Blood Base Excess 2 mmol/L (-3-3) FiO2 50 Medications Active Scripts Medications Dose Route/Sig Max Daily Dose Days Date Category Trazodone Hcl 100 Mg Tablet 100 Mg PO HS 10/31/16 Reported Polyethylene Glycol 3350 255 Gm Powder 17 Gm PO DAILY 10/31/16 Reported Olanzapine 20 Mg Tablet 2 Tab PO QHS 10/31/16 Reported Montelukast Sodium Tablet (Montelukast Sodium) 10 Mg Tablet 10 Mg PO HS 10/31/16 Reported Meloxicam 15 Mg Tablet 1 Tab PO DAILY 10/31/16 Reported Losartan Potassium 50 Mg Tablet 50 Mg PO DAILY 10/31/16 Reported Lorazepam 1 Mg Tablet 1 Mg PO HS 10/31/16 Reported Lasix (Furosemide) 40 Mg Tablet 40 Mg PO PRN DAILY 10/31/16 Reported Hydrochlorothiazide Tablet (Hydrochlorothiazide) 25 Mg Tablet 25 Mg PO DAILY 10/31/16 Reported Folic Acid 1 Mg Tablet 1 Mg PO DAILY 10/31/16 Reported Fluoxetine Hcl 40 Mg Capsule 40 Mg PO DAILY 10/31/16 Reported Famotidine 20 Mg Tablet 20 Mg PO BID 10/31/16 Reported Duoneb 0.5-3(2.5) Mg/3 Ml (Albuterol/Ipratropium) 3 Ml Ampul.neb 3 Ml NEB QID 10/31/16 Reported Docusate Sodium 100 Mg Capsule 1 Cap PO BID 10/31/16 Reported Clonidine Hcl 0.1 Mg Tablet 0.1 Mg PO QID 10/31/16 Reported Cetirizine Hcl 10 Mg Tablet 1 Tab PO DAILY 10/31/16 Reported Comments IMPRESSION: No acute finding seen in the abdomen or pelvis. Volume loss at the lung bases left greater than right compatible with atelectasis or 2 Impression . A/C HYPERCAPNIA HYPOXEMIC RESP FAILURE MULTIFACTORIAL FAILED BIPAP INTUBATED ACUTE HEART FAILURE SUSPECT DIASTOLIC TALHA/OHS ACUTE RENAL FAILURE MORBID OBESITY FEVER POSSIBLE PNEUMONIA GRAM NEG/GRAM POS POSSIBLE SEPSIS/FEVER UTI KLEB Plan . DOWN TO 50% 02 FOLLOW NEPHRO INPUT ANTIBX PER ID DVT AND GI PROPH NUTRITION PER TF CLIVE MEDRANO MD Nov 06, 2016 15:30
[2016-11-06] MEDS: FAMOTIDINE 20 MG/2 ML VIAL IVP SCH (21:06)
[2016-11-06] MEDS: MIDAZOLAM PREMIX 100 ML IV PRN (22:37)
[2016-11-07] VITALS (24 sets, daily range): BP systolic 108–179; BP diastolic 65–100
[2016-11-07] MEDS: PIPERACILLIN/TAZOBACTAM 4.5 GM in IV NORMAL SALINE 100ML 100 ML IV SCH ×3 (05:49→17:33)
[2016-11-07] MEDS: HEPARIN PF for SUB-Q USE 5,000 UNIT/0.5 ML VIAL. SQ SCH ×3 (05:52→21:31)
[2016-11-07 06:20] LABS: BASO # 0.1 x10^3/uL (0.0-0.2); BASO % 1 % (0-3); EOS % 4 % (0-3); HEMATOCRIT 29.6 % (36.0-47.0); LYMPH # 3.5 x10^3/uL (1.0-4.8); LYMPH % 26 % (24-48); MEAN CORPUSCULAR HEMOGLOBIN 28 pg (25-35); MEAN CORPUSCULAR HGB CONC 30 g/dL (31-37); MEAN CORPUSCULAR VOLUME 92 fL (79-100); MONO % 12 % (0-9); NEUT % 59 % (31-73); PLATELET COUNT 378 x10^3/uL (140-400); RED BLOOD COUNT 3.23 x10^6/uL (3.50-5.40); RED CELL DISTRIBUTION WIDTH 16.3 % (11.5-14.5); WHITE BLOOD COUNT 13.6 x10^3/uL (4.0-11.0)
[2016-11-07 06:40] LABS: CALCIUM 8.7 mg/dL (8.5-10.1); GFR 67.8; PHOSPHORUS 3.6 mg/dL (2.6-4.7); POTASSIUM 4.4 mmol/L (3.5-5.1)
[2016-11-07 06:53] LABS: MAGNESIUM 2.4 mg/dL (1.8-2.4)
[2016-11-07] MEDS: IPRATRPIUM/ALBUTEROL 0.5/2.5MG 3 ML NEBU. NEB SCH ×4 (07:52→19:43)
--- NOTE | 2016-11-07 09:05 | PDOC ---
Infectious Disease Note Subjective Subjective Remains intubated. FiO2 50% Tube feedings via OGT Fever Tmax 100.7 + BM ROS ROS Unobtainable Vital Sign Vital Signs Vital Signs Date Time Temp Pulse Resp B/P (MAP) Pulse Ox O2 Delivery O2 Flow Rate FiO2 11/07/16 07:52 98 Ventilator 11/07/16 06:00 112 24 112/84 (93) 11/07/16 04:00 99.2 99.2 11/06/16 20:00 Physical Exam PHYSICAL EXAM GENERAL: Opens eyes to voice, intubated, mittens HEENT: Pupils small, OGT, ETT LUNGS: Clear anteriorly HEART: S1S2 regular ABD: Obese, hypoactive BS, soft : [place] EXT: Generalized swelling SKIN: No rash RUE-PICC.(11/04). clean Labs Lab Laboratory Tests Test 11/06/16 23:05 11/07/16 06:12 Glucose (Fingerstick) 132 mg/dL (70-99) White Blood Count 13.6 x10^3/uL (4.0-11.0) Red Blood Count 3.23 x10^6/uL (3.50-5.40) Hemoglobin 9.0 g/dL (12.0-15.5) Hematocrit 29.6 % (36.0-47.0) Mean Corpuscular Volume 92 fL (79-100) Mean Corpuscular Hemoglobin 28 pg (25-35) Mean Corpuscular Hemoglobin Concent 30 g/dL (31-37) Red Cell Distribution Width 16.3 % (11.5-14.5) Platelet Count 378 x10^3/uL (140-400) Neutrophils (%) (Auto) 59 % (31-73) Lymphocytes (%) (Auto) 26 % (24-48) Monocytes (%) (Auto) 12 % (0-9) Eosinophils (%) (Auto) 4 % (0-3) Basophils (%) (Auto) 1 % (0-3) Neutrophils # (Auto) 7.9 x10^3uL (1.8-7.7) Lymphocytes # (Auto) 3.5 x10^3/uL (1.0-4.8) Monocytes # (Auto) 1.6 x10^3/uL (0.0-1.1) Eosinophils # (Auto) 0.5 x10^3/uL (0.0-0.7) Basophils # (Auto) 0.1 x10^3/uL (0.0-0.2) Sodium Level 155 mmol/L (136-145) Potassium Level 4.4 mmol/L (3.5-5.1) Chloride Level 117 mmol/L (98-107) Carbon Dioxide Level 31 mmol/L (21-32) Anion Gap 7 (6-14) Blood Urea Nitrogen 28 mg/dL (7-20) Creatinine 1.0 mg/dL (0.6-1.0) Estimated GFR (Cockcroft-Gault) 67.8 Glucose Level 144 mg/dL (70-99) Calcium Level 8.7 mg/dL (8.5-10.1) Phosphorus Level 3.6 mg/dL (2.6-4.7) Magnesium Level 2.4 mg/dL (1.8-2.4) Creatine Kinase 1331 U/L (26-192) Albumin 2.0 g/dL (3.4-5.0) Micro BLOOD CULTURE Preliminary NO GROWTH AFTER 4 DAYS SPUTUM CULT Final Routine respiratory kasey URINE CULTURE RES 1 Final Klebsiella pneumoniae Antibiotic RSLT#1 Amoxicillin/Clavulanic Acid S Ampicillin R Cefepime S Ceftriaxone S Cefuroxime S Cephalothin S Ciprofloxacin S Ertapenem S Gentamicin S Imipenem S Levofloxacin S Nitrofurantoin S Piperacillin S Tetracycline S Tobramycin S Trimethoprim/Sulfa S Objective Assessment Klebsiella UTI, POA Fever Leukocytosis, trending down Respiratory failure Ángel pulmonary infiltrate, CHF vs pneumonia Acute renal failure, improving Rhabdomyolysis Schizophrenia Plan Plan of Care Zosyn Dose steroids 10/31 Monitor WBC/temp Supportive care Attending Co-Sign The patient was seen and interviewed as well as examined at the bedside. The chart was reviewed. The case was discussed. Agree with the plan of care. DAVE HERNANDEZ APRN Nov 07, 2016 09:05 CAITY SMITH MD Nov 07, 2016 14:23
[2016-11-07] MEDS ORDERED: IV DEXTROSE 5% 1,000 ML IV SCH (09:15)
[2016-11-07] MEDS: CHLORHEXIDINE 0.12% 15 ML MOUTHWASH. MM SCH ×2 (09:40→21:30)
--- NOTE | 2016-11-07 09:59 | RAD ---
PORTABLE CHEST 1V Clinical Indication: intubated Comparison: Chest radiograph dated 11/05/2016 Findings: Stable endotracheal tube, enteric tube, and right PICC. Stable low lung volumes. Improving but persistent bilateral perihilar and left basilar heterogenous air space opacities. Pulmonary vascular indistinctness. Stable small left pleural effusion. No pneumothorax. Stable cardiomegaly. The great vessels of the thorax are stable. No acute osseous abnormality. IMPRESSION: 1. Improving but persistent bilateral perihilar and left basilar heterogenous air space opacities. 2. Stable small left pleural effusion. 3. Stable life support devices as above.
[2016-11-07 10:19] LABS: HCO3 ABG 28 mmol/L (21-28); PCO2 ABG 44 mmHg (35-46); PH ABG 7.42 (7.35-7.45); PO2 ABG 72 mmHg (65-108); SAT O2 ABG 93 % (92-99)
[2016-11-07 10:22] LABS: FIO2 ABG 50
--- NOTE | 2016-11-07 11:52 | PDOC ---
Renal-Progress Notes Subjective Notes Notes INTUBATED History of Present Illness Hx of present illness STABLE Vitals Vitals Vital Signs Date Time Temp Pulse Resp B/P (MAP) Pulse Ox O2 Delivery O2 Flow Rate FiO2 11/07/16 11:29 99 Ventilator 11/07/16 10:05 100 22 146/84 (104) 11/07/16 04:00 99.2 99.2 11/06/16 20:00 Weight Weight [ ] I.O. Intake and Output Intake and Output 11/07/16 07:00 Intake Total 3426.57 ml Output Total 3950 ml Balance -523.43 ml IV Total 1465.57 ml Tube Feeding 1565 ml Blood Product IV Normal Saline Flush 396 ml Output Urine Total 3950 ml Gastric Drainage Total 0 ml # Bowel Movements 1 Labs Labs Laboratory Tests Test 11/06/16 23:05 11/07/16 06:12 11/07/16 07:48 Glucose (Fingerstick) 132 mg/dL (70-99) White Blood Count 13.6 x10^3/uL (4.0-11.0) Red Blood Count 3.23 x10^6/uL (3.50-5.40) Hemoglobin 9.0 g/dL (12.0-15.5) Hematocrit 29.6 % (36.0-47.0) Mean Corpuscular Volume 92 fL (79-100) Mean Corpuscular Hemoglobin 28 pg (25-35) Mean Corpuscular Hemoglobin Concent 30 g/dL (31-37) Red Cell Distribution Width 16.3 % (11.5-14.5) Platelet Count 378 x10^3/uL (140-400) Neutrophils (%) (Auto) 59 % (31-73) Lymphocytes (%) (Auto) 26 % (24-48) Monocytes (%) (Auto) 12 % (0-9) Eosinophils (%) (Auto) 4 % (0-3) Basophils (%) (Auto) 1 % (0-3) Neutrophils # (Auto) 7.9 x10^3uL (1.8-7.7) Lymphocytes # (Auto) 3.5 x10^3/uL (1.0-4.8) Monocytes # (Auto) 1.6 x10^3/uL (0.0-1.1) Eosinophils # (Auto) 0.5 x10^3/uL (0.0-0.7) Basophils # (Auto) 0.1 x10^3/uL (0.0-0.2) Sodium Level 155 mmol/L (136-145) Potassium Level 4.4 mmol/L (3.5-5.1) Chloride Level 117 mmol/L (98-107) Carbon Dioxide Level 31 mmol/L (21-32) Anion Gap 7 (6-14) Blood Urea Nitrogen 28 mg/dL (7-20) Creatinine 1.0 mg/dL (0.6-1.0) Estimated GFR (Cockcroft-Gault) 67.8 Glucose Level 144 mg/dL (70-99) Calcium Level 8.7 mg/dL (8.5-10.1) Phosphorus Level 3.6 mg/dL (2.6-4.7) Magnesium Level 2.4 mg/dL (1.8-2.4) Creatine Kinase 1331 U/L (26-192) Albumin 2.0 g/dL (3.4-5.0) O2 Saturation 93 % (92-99) Arterial Blood pH 7.42 (7.35-7.45) Arterial Blood pCO2 at Patient Temp 44 mmHg (35-46) Arterial Blood pO2 at Patient Temp 72 mmHg (65-108) Arterial Blood HCO3 28 mmol/L (21-28) Arterial Blood Base Excess 3 mmol/L (-3-3) FiO2 50 Micro Micro Microbiology 11/02/16 Blood Culture - Preliminary, Resulted NO GROWTH AFTER 4 DAYS 11/01/16 Sputum Culture - Final, Complete 11/01/16 Sputum Result 1 - Final, Complete 10/31/16 Urine Culture - Final, Complete 10/31/16 Urine Culture Result 1 (ISAIAS) - Final, Complete 10/31/16 Antimicrobic Susceptibility - Final, Complete Review of Systems Constitutional: yes: no symptom reported Physical Exam General Appearance: no apparent distress Skin: warm Heart: S1S2, RRR Abdomen: soft, bowel sounds present Extremities: pulses present Neurology: other (SEDATED) Assessment Assessment IMP RESP FAILURE UTI LEUCOCYTOSIS-BETTER HYPERNATREMIA DIASTOLIC CHF-COMPENSATED POSSIBLE PNEUMONIA MICHI-IMPROVING PLAN VENT SUPPORT CONT TF WATER FLUSHES D5 W STOP HER HCTZ FOR NOW CONT ANTIBIOTICS TITI FERRELL MD Nov 07, 2016 11:52
--- NOTE | 2016-11-07 13:10 | PDOC ---
PROGRESS NOTES Chief Complaint Chief Complaint Complaint: respiratory failure Assessment and plan Acute hypoxic and hypercapnic resp failure with HAP, Failed on bipap and on mechanical ventilation from 10/31/2016 Fever and leukocytosis: Better today, no fevers for hours KPNA urinary tract infection, present on admission Healthcare associated pneumonia possible gram-negative rods COPD morbid obesity Congestive heart failure , LV ejection fraction 65% Ckd with jerrod, vasomotor HX of schizophrenia HTN tobaccoism Elevated CPK, unclear etiology Hypernatremia hypophosphatemia moderate malnutrition PLAN: IV Zosyn and vancomycin and the Levaquin with ID Ventilator management by pulmonology dc NS, dc 04/17 NS, add free h2o through OGT feeding. add d5, renal increase to 100cc/h CT abdomen pelvis no acute findings noted Chest x-ray reveals reviewed , better Monitor CPK elevated, no obvious signs of trauma seen on exam, externally, discussed with RN-no bruising noted on the posterior aspect of the body. Order myoglobin labs pending DVT prophylaxis with Lovenox Labs reviewed. CXR DAILY Discussed with RN Periodic nebulizations as per respiratory therapy. Prognosis guarded, condition critical. Place PICC line No immediate family members available. SW consult for DPOA History of Present Illness History of Present Illness no BM, able to pass flatus Distended abdomen intubated ,sedated, PEEP slightly better at 8 now, 50% fio2, 11/06, 11/07. higher Na Vitals Vitals Vital Signs Date Time Temp Pulse Resp B/P (MAP) Pulse Ox O2 Delivery O2 Flow Rate FiO2 11/07/16 12:56 99 Ventilator 11/07/16 10:05 100 22 146/84 (104) 11/07/16 04:00 99.2 99.2 11/06/16 20:00 Physical Exam Physical Exam intubated, sedated General: Other (serrated, intubated,) Heart: Regular rate (SR), Normal S1, Normal S2, Other Lungs: Crackles Abdomen: Soft, No tenderness, Other (obese, mild distended) Extremities: No cyanosis, Other (1+ bilateral LE pitting edema) Skin: No breakdown, No significant lesion Labs LABS Laboratory Tests Test 11/06/16 23:05 11/07/16 06:12 11/07/16 07:48 11/07/16 11:59 Glucose (Fingerstick) 132 mg/dL (70-99) 138 mg/dL (70-99) White Blood Count 13.6 x10^3/uL (4.0-11.0) Red Blood Count 3.23 x10^6/uL (3.50-5.40) Hemoglobin 9.0 g/dL (12.0-15.5) Hematocrit 29.6 % (36.0-47.0) Mean Corpuscular Volume 92 fL (79-100) Mean Corpuscular Hemoglobin 28 pg (25-35) Mean Corpuscular Hemoglobin Concent 30 g/dL (31-37) Red Cell Distribution Width 16.3 % (11.5-14.5) Platelet Count 378 x10^3/uL (140-400) Neutrophils (%) (Auto) 59 % (31-73) Lymphocytes (%) (Auto) 26 % (24-48) Monocytes (%) (Auto) 12 % (0-9) Eosinophils (%) (Auto) 4 % (0-3) Basophils (%) (Auto) 1 % (0-3) Neutrophils # (Auto) 7.9 x10^3uL (1.8-7.7) Lymphocytes # (Auto) 3.5 x10^3/uL (1.0-4.8) Monocytes # (Auto) 1.6 x10^3/uL (0.0-1.1) Eosinophils # (Auto) 0.5 x10^3/uL (0.0-0.7) Basophils # (Auto) 0.1 x10^3/uL (0.0-0.2) Sodium Level 155 mmol/L (136-145) Potassium Level 4.4 mmol/L (3.5-5.1) Chloride Level 117 mmol/L (98-107) Carbon Dioxide Level 31 mmol/L (21-32) Anion Gap 7 (6-14) Blood Urea Nitrogen 28 mg/dL (7-20) Creatinine 1.0 mg/dL (0.6-1.0) Estimated GFR (Cockcroft-Gault) 67.8 Glucose Level 144 mg/dL (70-99) Calcium Level 8.7 mg/dL (8.5-10.1) Phosphorus Level 3.6 mg/dL (2.6-4.7) Magnesium Level 2.4 mg/dL (1.8-2.4) Creatine Kinase 1331 U/L (26-192) Albumin 2.0 g/dL (3.4-5.0) O2 Saturation 93 % (92-99) Arterial Blood pH 7.42 (7.35-7.45) Arterial Blood pCO2 at Patient Temp 44 mmHg (35-46) Arterial Blood pO2 at Patient Temp 72 mmHg (65-108) Arterial Blood HCO3 28 mmol/L (21-28) Arterial Blood Base Excess 3 mmol/L (-3-3) FiO2 50 Review of Systems Review of Systems no fever, chills, Comment Review of Relevant I have reviewed the following items asif (where applicable) has been applied. Labs Laboratory Tests Test 11/05/16 22:15 11/06/16 05:10 11/06/16 05:15 11/06/16 08:00 Influenza Type A Antigen Negative (NEGATIVE) Influenza Type B Antigen Negative (NEGATIVE) POC RSV Rapid Screen Negative (NEGATIVE) Glucose (Fingerstick) 136 mg/dL (70-99) White Blood Count 10.1 x10^3/uL (4.0-11.0) Red Blood Count 3.05 x10^6/uL (3.50-5.40) Hemoglobin 8.8 g/dL (12.0-15.5) Hematocrit 27.6 % (36.0-47.0) Mean Corpuscular Volume 90 fL (79-100) Mean Corpuscular Hemoglobin 29 pg (25-35) Mean Corpuscular Hemoglobin Concent 32 g/dL (31-37) Red Cell Distribution Width 16.4 % (11.5-14.5) Platelet Count 309 x10^3/uL (140-400) Neutrophils (%) (Auto) 66 % (31-73) Lymphocytes (%) (Auto) 20 % (24-48) Monocytes (%) (Auto) 11 % (0-9) Eosinophils (%) (Auto) 3 % (0-3) Basophils (%) (Auto) 1 % (0-3) Neutrophils # (Auto) 6.7 x10^3uL (1.8-7.7) Lymphocytes # (Auto) 2.0 x10^3/uL (1.0-4.8) Monocytes # (Auto) 1.1 x10^3/uL (0.0-1.1) Eosinophils # (Auto) 0.3 x10^3/uL (0.0-0.7) Basophils # (Auto) 0.1 x10^3/uL (0.0-0.2) Sodium Level 152 mmol/L (136-145) Potassium Level 4.1 mmol/L (3.5-5.1) Chloride Level 118 mmol/L (98-107) Carbon Dioxide Level 27 mmol/L (21-32) Anion Gap 7 (6-14) Blood Urea Nitrogen 28 mg/dL (7-20) Creatinine 1.0 mg/dL (0.6-1.0) Estimated GFR (Cockcroft-Gault) 67.8 Glucose Level 134 mg/dL (70-99) Calcium Level 8.5 mg/dL (8.5-10.1) Phosphorus Level 2.3 mg/dL (2.6-4.7) Magnesium Level 2.3 mg/dL (1.8-2.4) Creatine Kinase 2766 U/L (26-192) Albumin 1.7 g/dL (3.4-5.0) O2 Saturation 94 % (92-99) Arterial Blood pH 7.40 (7.35-7.45) Arterial Blood pCO2 at Patient Temp 44 mmHg (35-46) Arterial Blood pO2 at Patient Temp 75 mmHg (65-108) Arterial Blood HCO3 27 mmol/L (21-28) Arterial Blood Base Excess 2 mmol/L (-3-3) FiO2 50 Test 11/06/16 23:05 11/07/16 06:12 11/07/16 07:48 11/07/16 11:59 Glucose (Fingerstick) 132 mg/dL (70-99) 138 mg/dL (70-99) White Blood Count 13.6 x10^3/uL (4.0-11.0) Red Blood Count 3.23 x10^6/uL (3.50-5.40) Hemoglobin 9.0 g/dL (12.0-15.5) Hematocrit 29.6 % (36.0-47.0) Mean Corpuscular Volume 92 fL (79-100) Mean Corpuscular Hemoglobin 28 pg (25-35) Mean Corpuscular Hemoglobin Concent 30 g/dL (31-37) Red Cell Distribution Width 16.3 % (11.5-14.5) Platelet Count 378 x10^3/uL (140-400) Neutrophils (%) (Auto) 59 % (31-73) Lymphocytes (%) (Auto) 26 % (24-48) Monocytes (%) (Auto) 12 % (0-9) Eosinophils (%) (Auto) 4 % (0-3) Basophils (%) (Auto) 1 % (0-3) Neutrophils # (Auto) 7.9 x10^3uL (1.8-7.7) Lymphocytes # (Auto) 3.5 x10^3/uL (1.0-4.8) Monocytes # (Auto) 1.6 x10^3/uL (0.0-1.1) Eosinophils # (Auto) 0.5 x10^3/uL (0.0-0.7) Basophils # (Auto) 0.1 x10^3/uL (0.0-0.2) Sodium Level 155 mmol/L (136-145) Potassium Level 4.4 mmol/L (3.5-5.1) Chloride Level 117 mmol/L (98-107) Carbon Dioxide Level 31 mmol/L (21-32) Anion Gap 7 (6-14) Blood Urea Nitrogen 28 mg/dL (7-20) Creatinine 1.0 mg/dL (0.6-1.0) Estimated GFR (Cockcroft-Gault) 67.8 Glucose Level 144 mg/dL (70-99) Calcium Level 8.7 mg/dL (8.5-10.1) Phosphorus Level 3.6 mg/dL (2.6-4.7) Magnesium Level 2.4 mg/dL (1.8-2.4) Creatine Kinase 1331 U/L (26-192) Albumin 2.0 g/dL (3.4-5.0) O2 Saturation 93 % (92-99) Arterial Blood pH 7.42 (7.35-7.45) Arterial Blood pCO2 at Patient Temp 44 mmHg (35-46) Arterial Blood pO2 at Patient Temp 72 mmHg (65-108) Arterial Blood HCO3 28 mmol/L (21-28) Arterial Blood Base Excess 3 mmol/L (-3-3) FiO2 50 Laboratory Tests Test 11/06/16 23:05 11/07/16 06:12 11/07/16 07:48 11/07/16 11:59 Glucose (Fingerstick) 132 mg/dL (70-99) 138 mg/dL (70-99) White Blood Count 13.6 x10^3/uL (4.0-11.0) Red Blood Count 3.23 x10^6/uL (3.50-5.40) Hemoglobin 9.0 g/dL (12.0-15.5) Hematocrit 29.6 % (36.0-47.0) Mean Corpuscular Volume 92 fL (79-100) Mean Corpuscular Hemoglobin 28 pg (25-35) Mean Corpuscular Hemoglobin Concent 30 g/dL (31-37) Red Cell Distribution Width 16.3 % (11.5-14.5) Platelet Count 378 x10^3/uL (140-400) Neutrophils (%) (Auto) 59 % (31-73) Lymphocytes (%) (Auto) 26 % (24-48) Monocytes (%) (Auto) 12 % (0-9) Eosinophils (%) (Auto) 4 % (0-3) Basophils (%) (Auto) 1 % (0-3) Neutrophils # (Auto) 7.9 x10^3uL (1.8-7.7) Lymphocytes # (Auto) 3.5 x10^3/uL (1.0-4.8) Monocytes # (Auto) 1.6 x10^3/uL (0.0-1.1) Eosinophils # (Auto) 0.5 x10^3/uL (0.0-0.7) Basophils # (Auto) 0.1 x10^3/uL (0.0-0.2) Sodium Level 155 mmol/L (136-145) Potassium Level 4.4 mmol/L (3.5-5.1) Chloride Level 117 mmol/L (98-107) Carbon Dioxide Level 31 mmol/L (21-32) Anion Gap 7 (6-14) Blood Urea Nitrogen 28 mg/dL (7-20) Creatinine 1.0 mg/dL (0.6-1.0) Estimated GFR (Cockcroft-Gault) 67.8 Glucose Level 144 mg/dL (70-99) Calcium Level 8.7 mg/dL (8.5-10.1) Phosphorus Level 3.6 mg/dL (2.6-4.7) Magnesium Level 2.4 mg/dL (1.8-2.4) Creatine Kinase 1331 U/L (26-192) Albumin 2.0 g/dL (3.4-5.0) O2 Saturation 93 % (92-99) Arterial Blood pH 7.42 (7.35-7.45) Arterial Blood pCO2 at Patient Temp 44 mmHg (35-46) Arterial Blood pO2 at Patient Temp 72 mmHg (65-108) Arterial Blood HCO3 28 mmol/L (21-28) Arterial Blood Base Excess 3 mmol/L (-3-3) FiO2 50 Microbiology 11/02/16 Blood Culture - Preliminary, Resulted NO GROWTH AFTER 4 DAYS 11/01/16 Sputum Culture - Final, Complete 11/01/16 Sputum Result 1 - Final, Complete 10/31/16 Urine Culture - Final, Complete 10/31/16 Urine Culture Result 1 (ISAIAS) - Final, Complete 10/31/16 Antimicrobic Susceptibility - Final, Complete Medications Current Medications Methylprednisolone Sodium Succinate (SOLU-Medrol 125MG VIAL) 125 mg 1X ONCE IV Last administered on 10/31/16 11:18; Start 10/31/16 at 11:00; Stop 10/31/16 at 11:01; Status DC Albuterol/ Ipratropium (Duoneb) 3 ml 1X ONCE NEB Last administered on 11:00; Start 10/31/16 at 11:00; Stop 10/31/16 at 11:01; Status DC Furosemide (Lasix) 40 mg 1X ONCE IVP Last administered on 10/31/16 11:17; Start 10/31/16 at 11:15; Stop 10/31/16 at 11:16; Status DC Vancomycin HCl (Vanco Per Pharmacy) 1 each PRN DAILY PRN MC SEE COMMENTS Last administered on 11/06/16 10:19; Start 10/31/16 at 11:30; Stop 11/06/16 at 14:40 ; Status DC Piperacillin Sod/ Tazobactam Sod (Zosyn Per Pharmacy) 1 each PRN DAILY PRN MC SEE COMMENTS; Start 10/31/16 at 11:30; Stop 11/02/16 at 08:44; Status DC Levofloxacin/ Dextrose (Levaquin Per Pharmacy) 1 each PRN DAILY PRN MC SEE COMMENTS; Start 10/31/16 at 11:30; Stop 10/31/16 at 12:57; Status DC Vancomycin HCl 2 gm/Sodium Chloride 500 ml @ 250 mls/hr 1X ONCE IV Last administered on 10/31/16 14:30; Start 10/31/16 at 11:30; Stop 10/31/16 at 13:29 ; Status DC Levofloxacin/ Dextrose 150 ml @ 100 mls/hr ONCE ONCE IV Last administered on 10/31/16 12:45; Start 10/31/16 at 11:30; Stop 10/31/16 at 12:59; Status DC Piperacillin Sod/ Tazobactam Sod 3.375 gm/Sodium Chloride 50 ml @ 100 mls/hr ONCE ONCE IV Last administered on 10/31/16 11:38; Start 10/31/16 at 11:45; Stop 10/31/16 at 12:14; Status DC Levofloxacin/ Dextrose 150 ml @ 100 mls/hr Q48H IV Last administered on 10:54; Start 11/02/16 at 10:00; Stop 11/05/16 at 09:18; Status DC Piperacillin Sod/ Tazobactam Sod 3.375 gm/Sodium Chloride 50 ml @ 100 mls/hr Q6HRS IV Last administered on 11/02/16 05:44; Start 10/31/16 at 18:00; Stop at 08:47; Status DC Acetaminophen (Tylenol) 650 mg PRN Q6HRS PRN PO FEVER Last administered on 11/01 20:26; Start 10/31/16 at 15:15; Stop 11/02/16 at 07:45; Status DC Ondansetron HCl (Zofran) 4 mg PRN Q6HRS PRN IV NAUSEA/VOMITING; Start 10/31/16 at 15:15 Morphine Sulfate 2 mg PRN Q2HR PRN IV PAIN Last administered on 11/01/16 15:48 ; Start 10/31/16 at 15:15 Tramadol HCl (Ultram) 50 mg PRN Q6HRS PRN PO PAIN; Start 10/31/16 at 15:15 Hydralazine HCl (Apresoline) 10 mg PRN Q4HRS PRN IVP ELEVATED BP, SEE COMMENTS ; Start 10/31/16 at 15:15 Docusate Sodium (Colace) 100 mg PRN DAILY PRN PO CONSTIPATION Last administered on 11/05/16 12:04; Start 10/31/16 at 15:15 Albuterol/ Ipratropium (Duoneb) 3 ml RTQID NEB Last administered on 11/07/16 11:29; Start 10/31/16 at 16:00 Albuterol Sulfate (Ventolin Neb Soln) 2.5 mg PRN Q4HRS PRN NEB SHORTNESS OF BREATH; Start 10/31/16 at 15:15 Heparin Sodium (Porcine) (Heparin Sq) 5,000 unit Q8HRS SQ Last administered on 11/07/16 05:52; Start 10/31/16 at 22:00 Famotidine (Pepcid) 20 mg QHS IVP Last administered on 11/06/16 21:06; Start 10/31/16 at 21:00 Vancomycin HCl 2 gm/Sodium Chloride 500 ml @ 250 mls/hr Q24H IV Last administered on 11/02/16 14:14; Start 11/01/16 at 14:00; Stop 11/02/16 at 14:24 ; Status DC Vancomycin HCl 1 each 1X ONCE MC Last administered on 11/02/16 13:30; Start 11/02/16 at 13:30; Stop 11/02/16 at 13:31; Status DC Sodium Chloride 1,000 ml @ 80 mls/hr [id number] IV Last administered on 08:27; Start 10/31/16 at 16:15; Stop 11/05/16 at 08:31; Status DC Sodium Chloride 1,000 ml @ 1,000 mls/hr 1X ONCE IV Last administered on 18:04; Start 10/31/16 at 14:00; Stop 10/31/16 at 17:23; Status DC Sodium Chloride 500 ml @ 500 mls/hr 1X ONCE IV Last administered on 17:30; Start 10/31/16 at 17:30; Stop 10/31/16 at 18:29; Status DC Fentanyl Citrate 30 ml @ 0 mls/hr CONT PRN IV PROTOCOL Last administered on 03:45; Start 10/31/16 at 18:30 Propofol 100 ml @ 0 mls/hr CONT PRN IV PER PROTOCOL Last administered on 19:00; Start 10/31/16 at 18:30 Chlorhexidine Gluconate (Peridex) 15 ml BID MM Last administered on 11/07/16 09:40; Start 10/31/16 at 21:00 Artificial Tears (Artificial Tears) 1 drop PRN Q1HR PRN OU DRY EYE; Start 10/31 at 18:30 Midazolam HCl 100 ml @ 0 mls/hr CONT PRN IV PER PROTOCOL Last administered on 22:37; Start 10/31/16 at 18:30 Succinylcholine Chloride (Anectine) 200 mg STK-MED ONCE .ROUTE ; Start 10/31/16 at 18:43; Stop 10/31/16 at 18:44; Status DC Midazolam HCl (Versed) 5 mg STK-MED ONCE .ROUTE ; Start 10/31/16 at 18:45; Stop 10/31/16 at 18:46; Status DC Midazolam HCl (Versed) 5 mg 1X ONCE IV Last administered on 10/31/16 19:30; Start 10/31/16 at 19:30; Stop 10/31/16 at 19:31; Status DC Succinylcholine Chloride (Anectine) 200 mg STK-MED ONCE .ROUTE ; Start 10/31/16 at 18:45; Stop 11/01/16 at 08:13; Status DC Furosemide (Lasix) 20 mg 1X ONCE IVP Last administered on 11/01/16 13:48; Start 11/01/16 at 13:30; Stop 11/01/16 at 13:31; Status DC Sodium Chloride 500 ml @ 500 mls/hr 1X ONCE IV Last administered on 23:09; Start 11/01/16 at 23:15; Stop 11/02/16 at 00:14; Status DC Acetaminophen (Tylenol) 650 mg PRN Q6HRS PRN PEG MILD PAIN / TEMP Last administered on 11/05/16 16:39; Start 11/02/16 at 07:45 Piperacillin Sod/ Tazobactam Sod 4.5 gm/Sodium Chloride 100 ml @ 200 mls/hr Q6HRS IV Last administered on 11/07/16 12:39; Start 11/02/16 at 12:00 Sodium Chloride 500 ml @ 500 mls/hr 1X ONCE IV Last administered on 14:10; Start 11/02/16 at 13:00; Stop 11/02/16 at 13:59; Status DC Sodium Chloride 1,000 ml @ 75 mls/hr [id number] IV ; Start 11/02/16 at 13:00; Stop 11/02/16 at 13:25; Status DC Vancomycin HCl 1.75 gm/Sodium Chloride 500 ml @ 250 mls/hr Q18H IV Last administered on 11/06/16 09:13; Start 11/03/16 at 08:00; Stop 11/06/16 at 14:39 ; Status DC Vancomycin HCl 1 each 1X ONCE MC Last administered on 11/04/16 19:30; Start 11/04/16 at 19:30; Stop 11/04/16 at 19:31; Status DC Metoclopramide HCl (Reglan) 10 mg 1X ONCE IV Last administered on 11/03/16 16 :35; Start 11/03/16 at 15:45; Stop 11/03/16 at 15:46; Status DC Furosemide (Lasix) 20 mg 1X ONCE IVP Last administered on 11/04/16 10:54; Start 11/04/16 at 10:30; Stop 11/04/16 at 10:31; Status DC Metoclopramide HCl (Reglan) 10 mg 1X ONCE IV Last administered on 11/04/16 17 :15; Start 11/04/16 at 17:15; Stop 11/04/16 at 17:16; Status DC Magnesium Sulfate/ Dextrose 50 ml @ 25 mls/hr PRN DAILY PRN IV for Mag < 1.7 on am labs; Start 11/05/16 at 08:15 Hydrochlorothiazide (Hydrodiuril) 25 mg DAILY PO Last administered on 12:04; Start 11/05/16 at 09:00; Stop 11/06/16 at 11:08; Status DC Levofloxacin/ Dextrose 150 ml @ 100 mls/hr Q24H IV Last administered on 10:00; Start 11/05/16 at 10:00; Stop 11/06/16 at 14:39; Status DC Sodium Chloride 1,000 ml @ 75 mls/hr [id number] IV Last administered on 04:54; Start 11/05/16 at 15:45; Stop 11/06/16 at 09:26; Status DC Sodium Chloride 1,000 ml @ 75 mls/hr [id number] IV Last administered on 09:38; Start 11/06/16 at 09:30; Stop 11/07/16 at 07:37; Status DC Furosemide (Lasix) 20 mg 1X ONCE IVP Last administered on 11/06/16 09:38; Start 11/06/16 at 09:30; Stop 11/06/16 at 09:31; Status DC Potassium Phosphate 10 mmol/ Sodium Chloride 103.3333 ml @ 51.667 m... Q2H IV Last administered on 11/06/16 20:16; Start 11/06/16 at 13:30; Stop 11/06/16 at 17:29; Status DC Dextrose 1,000 ml @ 50 mls/hr Q20H IV Last administered on 11/07/16 09:40; Start 11/07/16 at 09:15; Stop 11/07/16 at 12:31; Status DC Dextrose 1,000 ml @ 100 mls/hr Q10H IV ; Start 11/07/16 at 19:30 Active Scripts Active Reported Trazodone Hcl 100 Mg Tablet 100 Mg PO HS Polyethylene Glycol 3350 255 Gm Powder 17 Gm PO DAILY Olanzapine 20 Mg Tablet 2 Tab PO QHS Montelukast Sodium Tablet (Montelukast Sodium) 10 Mg Tablet 10 Mg PO HS Meloxicam 15 Mg Tablet 1 Tab PO DAILY Losartan Potassium 50 Mg Tablet 50 Mg PO DAILY Lorazepam 1 Mg Tablet 1 Mg PO HS Lasix (Furosemide) 40 Mg Tablet 40 Mg PO PRN DAILY Hydrochlorothiazide Tablet (Hydrochlorothiazide) 25 Mg Tablet 25 Mg PO DAILY Folic Acid 1 Mg Tablet 1 Mg PO DAILY Fluoxetine Hcl 40 Mg Capsule 40 Mg PO DAILY Famotidine 20 Mg Tablet 20 Mg PO BID Duoneb 0.5-3(2.5) Mg/3 Ml (Albuterol/Ipratropium) 3 Ml Ampul.neb 3 Ml NEB QID Docusate Sodium 100 Mg Capsule 1 Cap PO BID Clonidine Hcl 0.1 Mg Tablet 0.1 Mg PO QID Cetirizine Hcl 10 Mg Tablet 1 Tab PO DAILY Vitals/I & O Vital Sign - Last 24 Hours 11/06/16 11/06/16 11/06/16 11/06/16 13:40 14:00 15:00 15:29 Pulse 105 94 Resp 16 13 B/P (MAP) 135/70 (91) 119/69 (86) Pulse Ox 98 98 98 98 O2 Delivery Ventilator Ventilator Ventilator Ventilator 11/06/16 11/06/16 11/06/16 11/06/16 16:00 16:00 17:00 17:18 Temp 99.3 99.3 Pulse 110 114 Resp 20 20 B/P (MAP) 162/78 (106) 178/82 (114) Pulse Ox 100 98 98 O2 Delivery Mechanical Ventilator Ventilator Ventilator Ventilator 11/06/16 11/06/16 11/06/16 11/06/16 18:00 19:00 19:45 20:00 Pulse 112 107 Resp 25 38 B/P (MAP) 162/81 (108) 114/59 (77) Pulse Ox 98 99 100 O2 Delivery Ventilator Ventilator Ventilator Mechanical Ventilator O2 Flow Rate 11/06/16 11/06/16 11/06/16 11/06/16 20:00 21:00 21:55 22:00 Temp 99.3 99.3 Pulse 100 94 108 Resp 14 21 27 B/P (MAP) 109/62 (78) 105/63 (77) 128/82 (97) Pulse Ox 99 100 98 99 O2 Delivery Ventilator Ventilator Ventilator Ventilator 11/06/16 11/06/16 11/07/16 11/07/16 23:00 23:59 00:00 00:07 Temp 100.7 100.7 Pulse 106 110 Resp 24 24 B/P (MAP) 150/93 (112) 141/86 (104) Pulse Ox 99 99 98 O2 Delivery Ventilator Mechanical Ventilator Ventilator Ventilator 11/07/16 11/07/16 11/07/16 11/07/16 01:00 02:00 02:17 03:00 Pulse 110 106 102 Resp 23 25 21 B/P (MAP) 152/89 (110) 164/88 (113) 139/80 (99) Pulse Ox 99 98 98 98 O2 Delivery Ventilator Ventilator Ventilator Ventilator 11/07/16 11/07/16 11/07/1611/07/17 03:45 04:00 04:00 04:15 Temp 99.2 99.2 Pulse 96 Resp 22 20 20 B/P (MAP) 131/74 (93) Pulse Ox 99 99 99 O2 Delivery Ventilator Ventilator Mechanical Ventilator Ventilator 11/07/16 11/07/16 11/07/16 11/07/16 05:00 05:10 06:00 07:00 Pulse 98 112 108 Resp 22 24 28 B/P (MAP) 144/78 (100) 112/84 (93) 157/97 (117) Pulse Ox 99 97 99 98 O2 Delivery Ventilator Ventilator Ventilator Ventilator 11/07/16 11/07/16 11/07/16 11/07/16 07:52 08:00 09:00 10:05 Pulse 90 100 100 Resp 20 20 22 B/P (MAP) 124/73 (90) 138/79 (98) 146/84 (104) Pulse Ox 98 99 98 99 O2 Delivery Ventilator Ventilator Ventilator Ventilator 11/07/16 11/07/16 11:29 12:56 Pulse Ox 99 99 O2 Delivery Ventilator Ventilator Intake and Output 11/06/16 11/06/16 11/07/16 14:59 22:59 06:59 Intake Total 705 ml 980 ml 1741.57 ml Output Total 1950 ml 1325 ml 675 ml Balance -1245 ml -345 ml 1066.57 ml SARA ANDERSON MD Nov 07, 2016 13:10
--- NOTE | 2016-11-07 13:33 | PDOC ---
PULMONARY PROGRESS NOTES Subjective PT SEDATED Vitals Vital Signs Date Time Temp Pulse Resp B/P (MAP) Pulse Ox O2 Delivery O2 Flow Rate FiO2 11/07/16 12:56 99 Ventilator 11/07/16 10:05 100 22 146/84 (104) 11/07/16 04:00 99.2 99.2 11/06/16 20:00 HEENT: Other (nc at perrl, orally intubated, nose clear neck + jvd, no lap, no thyromegaly) Lungs: Crackles Cardiovascular: S1, S2 Abdomen: Soft, Non-tender, Other (no mass) Skin: Warm Labs Laboratory Tests Test 11/05/16 22:15 11/06/16 05:10 11/06/16 05:15 11/06/16 08:00 Influenza Type A Antigen Negative (NEGATIVE) Influenza Type B Antigen Negative (NEGATIVE) POC RSV Rapid Screen Negative (NEGATIVE) Glucose (Fingerstick) 136 mg/dL (70-99) White Blood Count 10.1 x10^3/uL (4.0-11.0) Red Blood Count 3.05 x10^6/uL (3.50-5.40) Hemoglobin 8.8 g/dL (12.0-15.5) Hematocrit 27.6 % (36.0-47.0) Mean Corpuscular Volume 90 fL (79-100) Mean Corpuscular Hemoglobin 29 pg (25-35) Mean Corpuscular Hemoglobin Concent 32 g/dL (31-37) Red Cell Distribution Width 16.4 % (11.5-14.5) Platelet Count 309 x10^3/uL (140-400) Neutrophils (%) (Auto) 66 % (31-73) Lymphocytes (%) (Auto) 20 % (24-48) Monocytes (%) (Auto) 11 % (0-9) Eosinophils (%) (Auto) 3 % (0-3) Basophils (%) (Auto) 1 % (0-3) Neutrophils # (Auto) 6.7 x10^3uL (1.8-7.7) Lymphocytes # (Auto) 2.0 x10^3/uL (1.0-4.8) Monocytes # (Auto) 1.1 x10^3/uL (0.0-1.1) Eosinophils # (Auto) 0.3 x10^3/uL (0.0-0.7) Basophils # (Auto) 0.1 x10^3/uL (0.0-0.2) Sodium Level 152 mmol/L (136-145) Potassium Level 4.1 mmol/L (3.5-5.1) Chloride Level 118 mmol/L (98-107) Carbon Dioxide Level 27 mmol/L (21-32) Anion Gap 7 (6-14) Blood Urea Nitrogen 28 mg/dL (7-20) Creatinine 1.0 mg/dL (0.6-1.0) Estimated GFR (Cockcroft-Gault) 67.8 Glucose Level 134 mg/dL (70-99) Calcium Level 8.5 mg/dL (8.5-10.1) Phosphorus Level 2.3 mg/dL (2.6-4.7) Magnesium Level 2.3 mg/dL (1.8-2.4) Creatine Kinase 2766 U/L (26-192) Albumin 1.7 g/dL (3.4-5.0) O2 Saturation 94 % (92-99) Arterial Blood pH 7.40 (7.35-7.45) Arterial Blood pCO2 at Patient Temp 44 mmHg (35-46) Arterial Blood pO2 at Patient Temp 75 mmHg (65-108) Arterial Blood HCO3 27 mmol/L (21-28) Arterial Blood Base Excess 2 mmol/L (-3-3) FiO2 50 Test 11/06/16 23:05 11/07/16 06:12 11/07/16 07:48 11/07/16 11:59 Glucose (Fingerstick) 132 mg/dL (70-99) 138 mg/dL (70-99) White Blood Count 13.6 x10^3/uL (4.0-11.0) Red Blood Count 3.23 x10^6/uL (3.50-5.40) Hemoglobin 9.0 g/dL (12.0-15.5) Hematocrit 29.6 % (36.0-47.0) Mean Corpuscular Volume 92 fL (79-100) Mean Corpuscular Hemoglobin 28 pg (25-35) Mean Corpuscular Hemoglobin Concent 30 g/dL (31-37) Red Cell Distribution Width 16.3 % (11.5-14.5) Platelet Count 378 x10^3/uL (140-400) Neutrophils (%) (Auto) 59 % (31-73) Lymphocytes (%) (Auto) 26 % (24-48) Monocytes (%) (Auto) 12 % (0-9) Eosinophils (%) (Auto) 4 % (0-3) Basophils (%) (Auto) 1 % (0-3) Neutrophils # (Auto) 7.9 x10^3uL (1.8-7.7) Lymphocytes # (Auto) 3.5 x10^3/uL (1.0-4.8) Monocytes # (Auto) 1.6 x10^3/uL (0.0-1.1) Eosinophils # (Auto) 0.5 x10^3/uL (0.0-0.7) Basophils # (Auto) 0.1 x10^3/uL (0.0-0.2) Sodium Level 155 mmol/L (136-145) Potassium Level 4.4 mmol/L (3.5-5.1) Chloride Level 117 mmol/L (98-107) Carbon Dioxide Level 31 mmol/L (21-32) Anion Gap 7 (6-14) Blood Urea Nitrogen 28 mg/dL (7-20) Creatinine 1.0 mg/dL (0.6-1.0) Estimated GFR (Cockcroft-Gault) 67.8 Glucose Level 144 mg/dL (70-99) Calcium Level 8.7 mg/dL (8.5-10.1) Phosphorus Level 3.6 mg/dL (2.6-4.7) Magnesium Level 2.4 mg/dL (1.8-2.4) Creatine Kinase 1331 U/L (26-192) Albumin 2.0 g/dL (3.4-5.0) O2 Saturation 93 % (92-99) Arterial Blood pH 7.42 (7.35-7.45) Arterial Blood pCO2 at Patient Temp 44 mmHg (35-46) Arterial Blood pO2 at Patient Temp 72 mmHg (65-108) Arterial Blood HCO3 28 mmol/L (21-28) Arterial Blood Base Excess 3 mmol/L (-3-3) FiO2 50 Laboratory Tests Test 11/06/16 23:05 11/07/16 06:12 11/07/16 07:48 11/07/16 11:59 Glucose (Fingerstick) 132 mg/dL (70-99) 138 mg/dL (70-99) White Blood Count 13.6 x10^3/uL (4.0-11.0) Red Blood Count 3.23 x10^6/uL (3.50-5.40) Hemoglobin 9.0 g/dL (12.0-15.5) Hematocrit 29.6 % (36.0-47.0) Mean Corpuscular Volume 92 fL (79-100) Mean Corpuscular Hemoglobin 28 pg (25-35) Mean Corpuscular Hemoglobin Concent 30 g/dL (31-37) Red Cell Distribution Width 16.3 % (11.5-14.5) Platelet Count 378 x10^3/uL (140-400) Neutrophils (%) (Auto) 59 % (31-73) Lymphocytes (%) (Auto) 26 % (24-48) Monocytes (%) (Auto) 12 % (0-9) Eosinophils (%) (Auto) 4 % (0-3) Basophils (%) (Auto) 1 % (0-3) Neutrophils # (Auto) 7.9 x10^3uL (1.8-7.7) Lymphocytes # (Auto) 3.5 x10^3/uL (1.0-4.8) Monocytes # (Auto) 1.6 x10^3/uL (0.0-1.1) Eosinophils # (Auto) 0.5 x10^3/uL (0.0-0.7) Basophils # (Auto) 0.1 x10^3/uL (0.0-0.2) Sodium Level 155 mmol/L (136-145) Potassium Level 4.4 mmol/L (3.5-5.1) Chloride Level 117 mmol/L (98-107) Carbon Dioxide Level 31 mmol/L (21-32) Anion Gap 7 (6-14) Blood Urea Nitrogen 28 mg/dL (7-20) Creatinine 1.0 mg/dL (0.6-1.0) Estimated GFR (Cockcroft-Gault) 67.8 Glucose Level 144 mg/dL (70-99) Calcium Level 8.7 mg/dL (8.5-10.1) Phosphorus Level 3.6 mg/dL (2.6-4.7) Magnesium Level 2.4 mg/dL (1.8-2.4) Creatine Kinase 1331 U/L (26-192) Albumin 2.0 g/dL (3.4-5.0) O2 Saturation 93 % (92-99) Arterial Blood pH 7.42 (7.35-7.45) Arterial Blood pCO2 at Patient Temp 44 mmHg (35-46) Arterial Blood pO2 at Patient Temp 72 mmHg (65-108) Arterial Blood HCO3 28 mmol/L (21-28) Arterial Blood Base Excess 3 mmol/L (-3-3) FiO2 50 Medications Active Scripts Medications Dose Route/Sig Max Daily Dose Days Date Category Trazodone Hcl 100 Mg Tablet 100 Mg PO HS 10/31/16 Reported Polyethylene Glycol 3350 255 Gm Powder 17 Gm PO DAILY 10/31/16 Reported Olanzapine 20 Mg Tablet 2 Tab PO QHS 10/31/16 Reported Montelukast Sodium Tablet (Montelukast Sodium) 10 Mg Tablet 10 Mg PO HS 10/31/16 Reported Meloxicam 15 Mg Tablet 1 Tab PO DAILY 10/31/16 Reported Losartan Potassium 50 Mg Tablet 50 Mg PO DAILY 10/31/16 Reported Lorazepam 1 Mg Tablet 1 Mg PO HS 10/31/16 Reported Lasix (Furosemide) 40 Mg Tablet 40 Mg PO PRN DAILY 10/31/16 Reported Hydrochlorothiazide Tablet (Hydrochlorothiazide) 25 Mg Tablet 25 Mg PO DAILY 10/31/16 Reported Folic Acid 1 Mg Tablet 1 Mg PO DAILY 10/31/16 Reported Fluoxetine Hcl 40 Mg Capsule 40 Mg PO DAILY 10/31/16 Reported Famotidine 20 Mg Tablet 20 Mg PO BID 10/31/16 Reported Duoneb 0.5-3(2.5) Mg/3 Ml (Albuterol/Ipratropium) 3 Ml Ampul.neb 3 Ml NEB QID 10/31/16 Reported Docusate Sodium 100 Mg Capsule 1 Cap PO BID 10/31/16 Reported Clonidine Hcl 0.1 Mg Tablet 0.1 Mg PO QID 10/31/16 Reported Cetirizine Hcl 10 Mg Tablet 1 Tab PO DAILY 10/31/16 Reported Comments 1. Improving but persistent bilateral perihilar and left basilar heterogenous air space opacities. 2. Stable small left pleural effusion. 3. Stable life support devices as above. Impression . A/C HYPERCAPNIA HYPOXEMIC RESP FAILURE MULTIFACTORIAL FAILED BIPAP INTUBATED ACUTE HEART FAILURE SUSPECT DIASTOLIC TALHA/OHS ACUTE RENAL FAILURE MORBID OBESITY FEVER POSSIBLE PNEUMONIA GRAM NEG/GRAM POS POSSIBLE SEPSIS/FEVER UTI KLEB RHABDO Plan . WILL CONTINUE SUPPORT SW TO ADDRESS DPOA MAY NEED ASSISTANCE FROM PALLIATIVE CARE IN FUTURE FOLLOW NEPHRO INPUT ANTIBX PER ID DVT AND GI PROPH NUTRITION PER TF CLIVE MEDRANO MD Nov 07, 2016 13:33
[2016-11-07] MEDS: hydrALAZINE 20 MG/ML VIAL. IVP PRN (17:32)
[2016-11-07] MEDS: IV DEXTROSE 5% 1,000 ML IV SCH (21:30)
[2016-11-07] MEDS: FAMOTIDINE 20 MG/2 ML VIAL IVP SCH (21:31)
[2016-11-08] VITALS (25 sets, daily range): BP systolic 111–185; BP diastolic 61–90
[2016-11-08] MEDS: PIPERACILLIN/TAZOBACTAM 4.5 GM in IV NORMAL SALINE 100ML 100 ML IV SCH ×4 (00:37→17:43)
[2016-11-08] MEDS: hydrALAZINE 20 MG/ML VIAL. IVP PRN (05:13)
[2016-11-08] MEDS: HEPARIN PF for SUB-Q USE 5,000 UNIT/0.5 ML VIAL. SQ SCH ×3 (05:22→22:23)
[2016-11-08 05:27] LABS: BASO # 0.1 x10^3/uL (0.0-0.2); BASO % 1 % (0-3); EOS % 3 % (0-3); HEMATOCRIT 26.4 % (36.0-47.0); HEMOGLOBIN 8.2 g/dL (12.0-15.5); LYMPH # 3.1 x10^3/uL (1.0-4.8); LYMPH % 21 % (24-48); MEAN CORPUSCULAR HEMOGLOBIN 28 pg (25-35); MEAN CORPUSCULAR HGB CONC 31 g/dL (31-37); MEAN CORPUSCULAR VOLUME 91 fL (79-100); MONO % 10 % (0-9); NEUT % 65 % (31-73); PLATELET COUNT 376 x10^3/uL (140-400); RED BLOOD COUNT 2.88 x10^6/uL (3.50-5.40); RED CELL DISTRIBUTION WIDTH 16.2 % (11.5-14.5); WHITE BLOOD COUNT 14.4 x10^3/uL (4.0-11.0)
[2016-11-08 05:49] LABS: ALBUMIN 1.9 g/dL (3.4-5.0); CREATININE 0.9 mg/dL (0.6-1.0); GFR 76.5; PHOSPHORUS 3.6 mg/dL (2.6-4.7); POTASSIUM 3.7 mmol/L (3.5-5.1)
[2016-11-08 06:02] LABS: MAGNESIUM 2.2 mg/dL (1.8-2.4)
[2016-11-08] MEDS: MORPHINE SULFATE 2 MG/ML DISP.SYRIN. IV PRN (06:16)
[2016-11-08] MEDS: MIDAZOLAM PREMIX 100 ML IV PRN ×2 (07:37→18:44)
--- NOTE | 2016-11-08 07:53 | RAD ---
Portable chest, 11/08/2016: History: Respiratory distress Comparison is made to yesterday's study. The ET tube has its tip located well above the rudy. A right PICC extends into the inferior aspect of the superior vena cava. An NG tube extends at least into the distal esophagus, although its tip is not visible. The heart size is unchanged. There is persistent patchy pulmonary infiltrates. Dense left basilar opacities have improved slightly. There is no evidence of pneumothorax. No new abnormality is detected. IMPRESSION: 1. Stable tube positions. 2. Ongoing patchy bilateral pulmonary infiltrates, left greater than right, with slightly improved aeration of the left base since yesterday's study.
[2016-11-08] MEDS: IPRATRPIUM/ALBUTEROL 0.5/2.5MG 3 ML NEBU. NEB SCH ×4 (08:07→19:55)
[2016-11-08 08:19] LABS: HCO3 ABG 29 mmol/L (21-28); PCO2 ABG 45 mmHg (35-46); PH ABG 7.43 (7.35-7.45); PO2 ABG 69 mmHg (65-108); SAT O2 ABG 92 % (92-99)
[2016-11-08 08:21] LABS: FIO2 ABG 50
[2016-11-08] MEDS: IV DEXTROSE 5% 1,000 ML IV SCH ×3 (08:39→19:51)
[2016-11-08] MEDS: CHLORHEXIDINE 0.12% 15 ML MOUTHWASH. MM SCH ×2 (09:17→19:50)
[2016-11-08] MEDS ORDERED: FUROSEMIDE 20 MG/2 ML VIAL. IVP ONE (09:30)
--- NOTE | 2016-11-08 09:53 | PDOC ---
Infectious Disease Note Subjective Subjective Remains intubated. Down to 35% FiO2 Tube feedings Less fever last 24 hours ROS ROS Unobtainable Vital Sign Vital Signs Vital Signs Date Time Temp Pulse Resp B/P (MAP) Pulse Ox O2 Delivery O2 Flow Rate FiO2 11/08/16 09:18 99 Ventilator 11/08/16 09:00 90 20 131/71 (91) 11/08/16 08:00 99.1 99.1 Physical Exam PHYSICAL EXAM GENERAL: Opens eyes to voice, intubated, mittens HEENT: Pupils small, OGT, ETT LUNGS: Clear anteriorly HEART: S1S2 regular ABD: Obese, hypoactive BS, soft : [place] EXT: Generalized swelling SKIN: No rash RUE-PICC.(11/04). clean Labs Lab Laboratory Tests Test 11/07/16 11:59 11/07/16 18:06 11/08/16 05:15 11/08/16 08:00 Glucose (Fingerstick) 138 mg/dL (70-99) 144 mg/dL (70-99) White Blood Count 14.4 x10^3/uL (4.0-11.0) Red Blood Count 2.88 x10^6/uL (3.50-5.40) Hemoglobin 8.2 g/dL (12.0-15.5) Hematocrit 26.4 % (36.0-47.0) Mean Corpuscular Volume 91 fL (79-100) Mean Corpuscular Hemoglobin 28 pg (25-35) Mean Corpuscular Hemoglobin Concent 31 g/dL (31-37) Red Cell Distribution Width 16.2 % (11.5-14.5) Platelet Count 376 x10^3/uL (140-400) Neutrophils (%) (Auto) 65 % (31-73) Lymphocytes (%) (Auto) 21 % (24-48) Monocytes (%) (Auto) 10 % (0-9) Eosinophils (%) (Auto) 3 % (0-3) Basophils (%) (Auto) 1 % (0-3) Neutrophils # (Auto) 9.3 x10^3uL (1.8-7.7) Lymphocytes # (Auto) 3.1 x10^3/uL (1.0-4.8) Monocytes # (Auto) 1.4 x10^3/uL (0.0-1.1) Eosinophils # (Auto) 0.5 x10^3/uL (0.0-0.7) Basophils # (Auto) 0.1 x10^3/uL (0.0-0.2) Sodium Level 148 mmol/L (136-145) Potassium Level 3.7 mmol/L (3.5-5.1) Chloride Level 112 mmol/L (98-107) Carbon Dioxide Level 30 mmol/L (21-32) Anion Gap 6 (6-14) Blood Urea Nitrogen 24 mg/dL (7-20) Creatinine 0.9 mg/dL (0.6-1.0) Estimated GFR (Cockcroft-Gault) 76.5 Glucose Level 154 mg/dL (70-99) Calcium Level 9.0 mg/dL (8.5-10.1) Phosphorus Level 3.6 mg/dL (2.6-4.7) Magnesium Level 2.2 mg/dL (1.8-2.4) Creatine Kinase 636 U/L (26-192) Albumin 1.9 g/dL (3.4-5.0) O2 Saturation 92 % (92-99) Arterial Blood pH 7.43 (7.35-7.45) Arterial Blood pCO2 at Patient Temp 45 mmHg (35-46) Arterial Blood pO2 at Patient Temp 69 mmHg (65-108) Arterial Blood HCO3 29 mmol/L (21-28) Arterial Blood Base Excess 4 mmol/L (-3-3) FiO2 50 Portable chest, 11/08/2016: Comparison is made to yesterday's study. The ET tube has its tip located well above the rudy. A right PICC extends into the inferior aspect of the superior vena cava. An NG tube extends at least into the distal esophagus, although its tip is not visible. The heart size is unchanged. There is persistent patchy pulmonary infiltrates. Dense left basilar opacities have improved slightly. There is no evidence of pneumothorax. No new abnormality is detected. IMPRESSION: 1. Stable tube positions. 2. Ongoing patchy bilateral pulmonary infiltrates, left greater than right, with slightly improved aeration of the left base since yesterday's study. Micro BLOOD CULTURE Preliminary NO GROWTH AFTER 5 DAYS SPUTUM CULT Final Routine respiratory kasey URINE CULTURE RES 1 Final Klebsiella pneumoniae Antibiotic RSLT#1 Amoxicillin/Clavulanic Acid S Ampicillin R Cefepime S Ceftriaxone S Cefuroxime S Cephalothin S Ciprofloxacin S Ertapenem S Gentamicin S Imipenem S Levofloxacin S Nitrofurantoin S Piperacillin S Tetracycline S Tobramycin S Trimethoprim/Sulfa S Objective Assessment Klebsiella UTI, POA Fever, better Leukocytosis Respiratory failure Ángel pulmonary infiltrate, CHF vs pneumonia Acute renal failure, improving Rhabdomyolysis, CK trending down Schizophrenia Plan Plan of Care Zosyn Dose steroids 10/31 f/u am labs Attending Co-Sign The patient was seen and interviewed as well as examined at the bedside. The chart was reviewed. The case was discussed. Agree with the plan of care. DAVE HERNANDEZ APRN Nov 08, 2016 09:53 CAITY SMITH MD Nov 08, 2016 12:41
--- NOTE | 2016-11-08 12:02 | PDOC ---
PULMONARY PROGRESS NOTES Subjective PT SEDATED Vitals Vital Signs Date Time Temp Pulse Resp B/P (MAP) Pulse Ox O2 Delivery O2 Flow Rate FiO2 11/08/16 11:52 99 Ventilator 11/08/16 11:00 89 19 111/74 (86) 11/08/16 08:00 99.1 99.1 HEENT: Other (nc at perrl, orally intubated, nose clear neck + jvd, no lap, no thyromegaly) Lungs: Crackles Cardiovascular: S1, S2 Abdomen: Soft, Non-tender, Other (no mass) Skin: Warm Labs Laboratory Tests Test 11/06/16 23:05 11/07/16 06:12 11/07/16 07:48 11/07/16 11:59 Glucose (Fingerstick) 132 mg/dL (70-99) 138 mg/dL (70-99) White Blood Count 13.6 x10^3/uL (4.0-11.0) Red Blood Count 3.23 x10^6/uL (3.50-5.40) Hemoglobin 9.0 g/dL (12.0-15.5) Hematocrit 29.6 % (36.0-47.0) Mean Corpuscular Volume 92 fL (79-100) Mean Corpuscular Hemoglobin 28 pg (25-35) Mean Corpuscular Hemoglobin Concent 30 g/dL (31-37) Red Cell Distribution Width 16.3 % (11.5-14.5) Platelet Count 378 x10^3/uL (140-400) Neutrophils (%) (Auto) 59 % (31-73) Lymphocytes (%) (Auto) 26 % (24-48) Monocytes (%) (Auto) 12 % (0-9) Eosinophils (%) (Auto) 4 % (0-3) Basophils (%) (Auto) 1 % (0-3) Neutrophils # (Auto) 7.9 x10^3uL (1.8-7.7) Lymphocytes # (Auto) 3.5 x10^3/uL (1.0-4.8) Monocytes # (Auto) 1.6 x10^3/uL (0.0-1.1) Eosinophils # (Auto) 0.5 x10^3/uL (0.0-0.7) Basophils # (Auto) 0.1 x10^3/uL (0.0-0.2) Sodium Level 155 mmol/L (136-145) Potassium Level 4.4 mmol/L (3.5-5.1) Chloride Level 117 mmol/L (98-107) Carbon Dioxide Level 31 mmol/L (21-32) Anion Gap 7 (6-14) Blood Urea Nitrogen 28 mg/dL (7-20) Creatinine 1.0 mg/dL (0.6-1.0) Estimated GFR (Cockcroft-Gault) 67.8 Glucose Level 144 mg/dL (70-99) Calcium Level 8.7 mg/dL (8.5-10.1) Phosphorus Level 3.6 mg/dL (2.6-4.7) Magnesium Level 2.4 mg/dL (1.8-2.4) Creatine Kinase 1331 U/L (26-192) Albumin 2.0 g/dL (3.4-5.0) O2 Saturation 93 % (92-99) Arterial Blood pH 7.42 (7.35-7.45) Arterial Blood pCO2 at Patient Temp 44 mmHg (35-46) Arterial Blood pO2 at Patient Temp 72 mmHg (65-108) Arterial Blood HCO3 28 mmol/L (21-28) Arterial Blood Base Excess 3 mmol/L (-3-3) FiO2 50 Test 11/07/16 18:06 11/08/16 05:15 11/08/16 08:00 Glucose (Fingerstick) 144 mg/dL (70-99) White Blood Count 14.4 x10^3/uL (4.0-11.0) Red Blood Count 2.88 x10^6/uL (3.50-5.40) Hemoglobin 8.2 g/dL (12.0-15.5) Hematocrit 26.4 % (36.0-47.0) Mean Corpuscular Volume 91 fL (79-100) Mean Corpuscular Hemoglobin 28 pg (25-35) Mean Corpuscular Hemoglobin Concent 31 g/dL (31-37) Red Cell Distribution Width 16.2 % (11.5-14.5) Platelet Count 376 x10^3/uL (140-400) Neutrophils (%) (Auto) 65 % (31-73) Lymphocytes (%) (Auto) 21 % (24-48) Monocytes (%) (Auto) 10 % (0-9) Eosinophils (%) (Auto) 3 % (0-3) Basophils (%) (Auto) 1 % (0-3) Neutrophils # (Auto) 9.3 x10^3uL (1.8-7.7) Lymphocytes # (Auto) 3.1 x10^3/uL (1.0-4.8) Monocytes # (Auto) 1.4 x10^3/uL (0.0-1.1) Eosinophils # (Auto) 0.5 x10^3/uL (0.0-0.7) Basophils # (Auto) 0.1 x10^3/uL (0.0-0.2) Sodium Level 148 mmol/L (136-145) Potassium Level 3.7 mmol/L (3.5-5.1) Chloride Level 112 mmol/L (98-107) Carbon Dioxide Level 30 mmol/L (21-32) Anion Gap 6 (6-14) Blood Urea Nitrogen 24 mg/dL (7-20) Creatinine 0.9 mg/dL (0.6-1.0) Estimated GFR (Cockcroft-Gault) 76.5 Glucose Level 154 mg/dL (70-99) Calcium Level 9.0 mg/dL (8.5-10.1) Phosphorus Level 3.6 mg/dL (2.6-4.7) Magnesium Level 2.2 mg/dL (1.8-2.4) Creatine Kinase 636 U/L (26-192) Albumin 1.9 g/dL (3.4-5.0) O2 Saturation 92 % (92-99) Arterial Blood pH 7.43 (7.35-7.45) Arterial Blood pCO2 at Patient Temp 45 mmHg (35-46) Arterial Blood pO2 at Patient Temp 69 mmHg (65-108) Arterial Blood HCO3 29 mmol/L (21-28) Arterial Blood Base Excess 4 mmol/L (-3-3) FiO2 50 Laboratory Tests Test 11/07/16 18:06 11/08/16 05:15 11/08/16 08:00 Glucose (Fingerstick) 144 mg/dL (70-99) White Blood Count 14.4 x10^3/uL (4.0-11.0) Red Blood Count 2.88 x10^6/uL (3.50-5.40) Hemoglobin 8.2 g/dL (12.0-15.5) Hematocrit 26.4 % (36.0-47.0) Mean Corpuscular Volume 91 fL (79-100) Mean Corpuscular Hemoglobin 28 pg (25-35) Mean Corpuscular Hemoglobin Concent 31 g/dL (31-37) Red Cell Distribution Width 16.2 % (11.5-14.5) Platelet Count 376 x10^3/uL (140-400) Neutrophils (%) (Auto) 65 % (31-73) Lymphocytes (%) (Auto) 21 % (24-48) Monocytes (%) (Auto) 10 % (0-9) Eosinophils (%) (Auto) 3 % (0-3) Basophils (%) (Auto) 1 % (0-3) Neutrophils # (Auto) 9.3 x10^3uL (1.8-7.7) Lymphocytes # (Auto) 3.1 x10^3/uL (1.0-4.8) Monocytes # (Auto) 1.4 x10^3/uL (0.0-1.1) Eosinophils # (Auto) 0.5 x10^3/uL (0.0-0.7) Basophils # (Auto) 0.1 x10^3/uL (0.0-0.2) Sodium Level 148 mmol/L (136-145) Potassium Level 3.7 mmol/L (3.5-5.1) Chloride Level 112 mmol/L (98-107) Carbon Dioxide Level 30 mmol/L (21-32) Anion Gap 6 (6-14) Blood Urea Nitrogen 24 mg/dL (7-20) Creatinine 0.9 mg/dL (0.6-1.0) Estimated GFR (Cockcroft-Gault) 76.5 Glucose Level 154 mg/dL (70-99) Calcium Level 9.0 mg/dL (8.5-10.1) Phosphorus Level 3.6 mg/dL (2.6-4.7) Magnesium Level 2.2 mg/dL (1.8-2.4) Creatine Kinase 636 U/L (26-192) Albumin 1.9 g/dL (3.4-5.0) O2 Saturation 92 % (92-99) Arterial Blood pH 7.43 (7.35-7.45) Arterial Blood pCO2 at Patient Temp 45 mmHg (35-46) Arterial Blood pO2 at Patient Temp 69 mmHg (65-108) Arterial Blood HCO3 29 mmol/L (21-28) Arterial Blood Base Excess 4 mmol/L (-3-3) FiO2 50 Medications Active Scripts Medications Dose Route/Sig Max Daily Dose Days Date Category Trazodone Hcl 100 Mg Tablet 100 Mg PO HS 10/31/16 Reported Polyethylene Glycol 3350 255 Gm Powder 17 Gm PO DAILY 10/31/16 Reported Olanzapine 20 Mg Tablet 2 Tab PO QHS 10/31/16 Reported Montelukast Sodium Tablet (Montelukast Sodium) 10 Mg Tablet 10 Mg PO HS 10/31/16 Reported Meloxicam 15 Mg Tablet 1 Tab PO DAILY 10/31/16 Reported Losartan Potassium 50 Mg Tablet 50 Mg PO DAILY 10/31/16 Reported Lorazepam 1 Mg Tablet 1 Mg PO HS 10/31/16 Reported Lasix (Furosemide) 40 Mg Tablet 40 Mg PO PRN DAILY 10/31/16 Reported Hydrochlorothiazide Tablet (Hydrochlorothiazide) 25 Mg Tablet 25 Mg PO DAILY 10/31/16 Reported Folic Acid 1 Mg Tablet 1 Mg PO DAILY 10/31/16 Reported Fluoxetine Hcl 40 Mg Capsule 40 Mg PO DAILY 10/31/16 Reported Famotidine 20 Mg Tablet 20 Mg PO BID 10/31/16 Reported Duoneb 0.5-3(2.5) Mg/3 Ml (Albuterol/Ipratropium) 3 Ml Ampul.neb 3 Ml NEB QID 10/31/16 Reported Docusate Sodium 100 Mg Capsule 1 Cap PO BID 10/31/16 Reported Clonidine Hcl 0.1 Mg Tablet 0.1 Mg PO QID 10/31/16 Reported Cetirizine Hcl 10 Mg Tablet 1 Tab PO DAILY 10/31/16 Reported Comments 1. Improving but persistent bilateral perihilar and left basilar heterogenous air space opacities. 2. Stable small left pleural effusion. 3. Stable life support devices as above. Impression . A/C HYPERCAPNIA HYPOXEMIC RESP FAILURE MULTIFACTORIAL FAILED BIPAP INTUBATED ACUTE HEART FAILURE SUSPECT DIASTOLIC TALHA/OHS ACUTE RENAL FAILURE MORBID OBESITY FEVER POSSIBLE PNEUMONIA GRAM NEG/GRAM POS POSSIBLE SEPSIS/FEVER UTI KLEB RHABDO Plan . NO CHANGE IN STATUS WILL CONTINUE SUPPORT MAY NEED ASSISTANCE FROM PALLIATIVE CARE IN FUTURE FOLLOW NEPHRO INPUT ANTIBX PER ID DVT AND GI PROPH NUTRITION PER TF CLIVE MEDRANO MD Nov 08, 2016 12:02
--- NOTE | 2016-11-08 12:05 | PDOC ---
PROGRESS NOTES Chief Complaint Chief Complaint Complaint: respiratory failure Assessment and plan Acute hypoxic and hypercapnic resp failure with HAP, Failed on bipap and on mechanical ventilation from 10/31/2016 Fever and leukocytosis: Better today, no fevers for hours KPNA urinary tract infection, present on admission Healthcare associated pneumonia possible gram-negative rods COPD morbid obesity Congestive heart failure , LV ejection fraction 65% Ckd with jerrod, vasomotor HX of schizophrenia HTN tobaccoism Elevated CPK, unclear etiology Hypernatremia hypophosphatemia moderate malnutrition PLAN: IV Zosyn, off vancomycin and the Levaquin with ID Ventilator management by pulmonology dc NS, dc 04/17 NS, add free h2o through OGT feeding. add d5, renal increase to 100cc/h CT abdomen pelvis no acute findings noted Chest x-ray reveals reviewed , worse today, will give lasix 20mg iv x1 today Monitor CPK elevated, no obvious signs of trauma seen on exam, externally, discussed with RN-no bruising noted on the posterior aspect of the body. DVT prophylaxis with Lovenox Labs reviewed. CXR DAILY Discussed with RN Periodic nebulizations as per respiratory therapy. Prognosis guarded, condition critical. Place PICC line No immediate family members available. SW consult for DPOA has been intubated for >1week, hope to find a DPOA TO SEE if need trach, vent setting slightly better now. History of Present Illness History of Present Illness Distended abdomen intubated ,sedated, PEEP slightly better at 8 now, 50% fio2, 11/06, 11/07, 11/08 higher Na slightly better, CXR worse by my read T 99.1 CK better Vitals Vitals Vital Signs Date Time Temp Pulse Resp B/P (MAP) Pulse Ox O2 Delivery O2 Flow Rate FiO2 11/08/16 11:52 99 Ventilator 11/08/16 11:00 89 19 111/74 (86) 11/08/16 08:00 99.1 99.1 Physical Exam Physical Exam intubated, sedated General: Other (serrated, intubated,) Heart: Regular rate (SR), Normal S1, Normal S2, Other Lungs: Crackles Abdomen: Soft, No tenderness, Other (obese, mild distended) Extremities: No cyanosis, Other (1+ bilateral LE pitting edema) Skin: No breakdown, No significant lesion Labs LABS Laboratory Tests Test 11/07/16 18:06 11/08/16 05:15 11/08/16 08:00 Glucose (Fingerstick) 144 mg/dL (70-99) White Blood Count 14.4 x10^3/uL (4.0-11.0) Red Blood Count 2.88 x10^6/uL (3.50-5.40) Hemoglobin 8.2 g/dL (12.0-15.5) Hematocrit 26.4 % (36.0-47.0) Mean Corpuscular Volume 91 fL (79-100) Mean Corpuscular Hemoglobin 28 pg (25-35) Mean Corpuscular Hemoglobin Concent 31 g/dL (31-37) Red Cell Distribution Width 16.2 % (11.5-14.5) Platelet Count 376 x10^3/uL (140-400) Neutrophils (%) (Auto) 65 % (31-73) Lymphocytes (%) (Auto) 21 % (24-48) Monocytes (%) (Auto) 10 % (0-9) Eosinophils (%) (Auto) 3 % (0-3) Basophils (%) (Auto) 1 % (0-3) Neutrophils # (Auto) 9.3 x10^3uL (1.8-7.7) Lymphocytes # (Auto) 3.1 x10^3/uL (1.0-4.8) Monocytes # (Auto) 1.4 x10^3/uL (0.0-1.1) Eosinophils # (Auto) 0.5 x10^3/uL (0.0-0.7) Basophils # (Auto) 0.1 x10^3/uL (0.0-0.2) Sodium Level 148 mmol/L (136-145) Potassium Level 3.7 mmol/L (3.5-5.1) Chloride Level 112 mmol/L (98-107) Carbon Dioxide Level 30 mmol/L (21-32) Anion Gap 6 (6-14) Blood Urea Nitrogen 24 mg/dL (7-20) Creatinine 0.9 mg/dL (0.6-1.0) Estimated GFR (Cockcroft-Gault) 76.5 Glucose Level 154 mg/dL (70-99) Calcium Level 9.0 mg/dL (8.5-10.1) Phosphorus Level 3.6 mg/dL (2.6-4.7) Magnesium Level 2.2 mg/dL (1.8-2.4) Creatine Kinase 636 U/L (26-192) Albumin 1.9 g/dL (3.4-5.0) O2 Saturation 92 % (92-99) Arterial Blood pH 7.43 (7.35-7.45) Arterial Blood pCO2 at Patient Temp 45 mmHg (35-46) Arterial Blood pO2 at Patient Temp 69 mmHg (65-108) Arterial Blood HCO3 29 mmol/L (21-28) Arterial Blood Base Excess 4 mmol/L (-3-3) FiO2 50 Review of Systems Review of Systems no chills, Comment Review of Relevant I have reviewed the following items asif (where applicable) has been applied. Labs Laboratory Tests Test 11/06/16 23:05 11/07/16 06:12 11/07/16 07:48 11/07/16 11:59 Glucose (Fingerstick) 132 mg/dL (70-99) 138 mg/dL (70-99) White Blood Count 13.6 x10^3/uL (4.0-11.0) Red Blood Count 3.23 x10^6/uL (3.50-5.40) Hemoglobin 9.0 g/dL (12.0-15.5) Hematocrit 29.6 % (36.0-47.0) Mean Corpuscular Volume 92 fL (79-100) Mean Corpuscular Hemoglobin 28 pg (25-35) Mean Corpuscular Hemoglobin Concent 30 g/dL (31-37) Red Cell Distribution Width 16.3 % (11.5-14.5) Platelet Count 378 x10^3/uL (140-400) Neutrophils (%) (Auto) 59 % (31-73) Lymphocytes (%) (Auto) 26 % (24-48) Monocytes (%) (Auto) 12 % (0-9) Eosinophils (%) (Auto) 4 % (0-3) Basophils (%) (Auto) 1 % (0-3) Neutrophils # (Auto) 7.9 x10^3uL (1.8-7.7) Lymphocytes # (Auto) 3.5 x10^3/uL (1.0-4.8) Monocytes # (Auto) 1.6 x10^3/uL (0.0-1.1) Eosinophils # (Auto) 0.5 x10^3/uL (0.0-0.7) Basophils # (Auto) 0.1 x10^3/uL (0.0-0.2) Sodium Level 155 mmol/L (136-145) Potassium Level 4.4 mmol/L (3.5-5.1) Chloride Level 117 mmol/L (98-107) Carbon Dioxide Level 31 mmol/L (21-32) Anion Gap 7 (6-14) Blood Urea Nitrogen 28 mg/dL (7-20) Creatinine 1.0 mg/dL (0.6-1.0) Estimated GFR (Cockcroft-Gault) 67.8 Glucose Level 144 mg/dL (70-99) Calcium Level 8.7 mg/dL (8.5-10.1) Phosphorus Level 3.6 mg/dL (2.6-4.7) Magnesium Level 2.4 mg/dL (1.8-2.4) Creatine Kinase 1331 U/L (26-192) Albumin 2.0 g/dL (3.4-5.0) O2 Saturation 93 % (92-99) Arterial Blood pH 7.42 (7.35-7.45) Arterial Blood pCO2 at Patient Temp 44 mmHg (35-46) Arterial Blood pO2 at Patient Temp 72 mmHg (65-108) Arterial Blood HCO3 28 mmol/L (21-28) Arterial Blood Base Excess 3 mmol/L (-3-3) FiO2 50 Test 11/07/16 18:06 11/08/16 05:15 11/08/16 08:00 Glucose (Fingerstick) 144 mg/dL (70-99) White Blood Count 14.4 x10^3/uL (4.0-11.0) Red Blood Count 2.88 x10^6/uL (3.50-5.40) Hemoglobin 8.2 g/dL (12.0-15.5) Hematocrit 26.4 % (36.0-47.0) Mean Corpuscular Volume 91 fL (79-100) Mean Corpuscular Hemoglobin 28 pg (25-35) Mean Corpuscular Hemoglobin Concent 31 g/dL (31-37) Red Cell Distribution Width 16.2 % (11.5-14.5) Platelet Count 376 x10^3/uL (140-400) Neutrophils (%) (Auto) 65 % (31-73) Lymphocytes (%) (Auto) 21 % (24-48) Monocytes (%) (Auto) 10 % (0-9) Eosinophils (%) (Auto) 3 % (0-3) Basophils (%) (Auto) 1 % (0-3) Neutrophils # (Auto) 9.3 x10^3uL (1.8-7.7) Lymphocytes # (Auto) 3.1 x10^3/uL (1.0-4.8) Monocytes # (Auto) 1.4 x10^3/uL (0.0-1.1) Eosinophils # (Auto) 0.5 x10^3/uL (0.0-0.7) Basophils # (Auto) 0.1 x10^3/uL (0.0-0.2) Sodium Level 148 mmol/L (136-145) Potassium Level 3.7 mmol/L (3.5-5.1) Chloride Level 112 mmol/L (98-107) Carbon Dioxide Level 30 mmol/L (21-32) Anion Gap 6 (6-14) Blood Urea Nitrogen 24 mg/dL (7-20) Creatinine 0.9 mg/dL (0.6-1.0) Estimated GFR (Cockcroft-Gault) 76.5 Glucose Level 154 mg/dL (70-99) Calcium Level 9.0 mg/dL (8.5-10.1) Phosphorus Level 3.6 mg/dL (2.6-4.7) Magnesium Level 2.2 mg/dL (1.8-2.4) Creatine Kinase 636 U/L (26-192) Albumin 1.9 g/dL (3.4-5.0) O2 Saturation 92 % (92-99) Arterial Blood pH 7.43 (7.35-7.45) Arterial Blood pCO2 at Patient Temp 45 mmHg (35-46) Arterial Blood pO2 at Patient Temp 69 mmHg (65-108) Arterial Blood HCO3 29 mmol/L (21-28) Arterial Blood Base Excess 4 mmol/L (-3-3) FiO2 50 Laboratory Tests Test 11/07/16 18:06 11/08/16 05:15 11/08/16 08:00 Glucose (Fingerstick) 144 mg/dL (70-99) White Blood Count 14.4 x10^3/uL (4.0-11.0) Red Blood Count 2.88 x10^6/uL (3.50-5.40) Hemoglobin 8.2 g/dL (12.0-15.5) Hematocrit 26.4 % (36.0-47.0) Mean Corpuscular Volume 91 fL (79-100) Mean Corpuscular Hemoglobin 28 pg (25-35) Mean Corpuscular Hemoglobin Concent 31 g/dL (31-37) Red Cell Distribution Width 16.2 % (11.5-14.5) Platelet Count 376 x10^3/uL (140-400) Neutrophils (%) (Auto) 65 % (31-73) Lymphocytes (%) (Auto) 21 % (24-48) Monocytes (%) (Auto) 10 % (0-9) Eosinophils (%) (Auto) 3 % (0-3) Basophils (%) (Auto) 1 % (0-3) Neutrophils # (Auto) 9.3 x10^3uL (1.8-7.7) Lymphocytes # (Auto) 3.1 x10^3/uL (1.0-4.8) Monocytes # (Auto) 1.4 x10^3/uL (0.0-1.1) Eosinophils # (Auto) 0.5 x10^3/uL (0.0-0.7) Basophils # (Auto) 0.1 x10^3/uL (0.0-0.2) Sodium Level 148 mmol/L (136-145) Potassium Level 3.7 mmol/L (3.5-5.1) Chloride Level 112 mmol/L (98-107) Carbon Dioxide Level 30 mmol/L (21-32) Anion Gap 6 (6-14) Blood Urea Nitrogen 24 mg/dL (7-20) Creatinine 0.9 mg/dL (0.6-1.0) Estimated GFR (Cockcroft-Gault) 76.5 Glucose Level 154 mg/dL (70-99) Calcium Level 9.0 mg/dL (8.5-10.1) Phosphorus Level 3.6 mg/dL (2.6-4.7) Magnesium Level 2.2 mg/dL (1.8-2.4) Creatine Kinase 636 U/L (26-192) Albumin 1.9 g/dL (3.4-5.0) O2 Saturation 92 % (92-99) Arterial Blood pH 7.43 (7.35-7.45) Arterial Blood pCO2 at Patient Temp 45 mmHg (35-46) Arterial Blood pO2 at Patient Temp 69 mmHg (65-108) Arterial Blood HCO3 29 mmol/L (21-28) Arterial Blood Base Excess 4 mmol/L (-3-3) FiO2 50 Microbiology 11/02/16 Blood Culture - Final, Complete NO GROWTH AFTER 5 DAYS 11/01/16 Sputum Culture - Final, Complete 11/01/16 Sputum Result 1 - Final, Complete 10/31/16 Urine Culture - Final, Complete 10/31/16 Urine Culture Result 1 (ISAIAS) - Final, Complete 10/31/16 Antimicrobic Susceptibility - Final, Complete Medications Current Medications Methylprednisolone Sodium Succinate (SOLU-Medrol 125MG VIAL) 125 mg 1X ONCE IV Last administered on 10/31/16 11:18; Start 10/31/16 at 11:00; Stop 10/31/16 at 11:01; Status DC Albuterol/ Ipratropium (Duoneb) 3 ml 1X ONCE NEB Last administered on 11:00; Start 10/31/16 at 11:00; Stop 10/31/16 at 11:01; Status DC Furosemide (Lasix) 40 mg 1X ONCE IVP Last administered on 10/31/16 11:17; Start 10/31/16 at 11:15; Stop 10/31/16 at 11:16; Status DC Vancomycin HCl (Vanco Per Pharmacy) 1 each PRN DAILY PRN MC SEE COMMENTS Last administered on 11/06/16 10:19; Start 10/31/16 at 11:30; Stop 11/06/16 at 14:40 ; Status DC Piperacillin Sod/ Tazobactam Sod (Zosyn Per Pharmacy) 1 each PRN DAILY PRN MC SEE COMMENTS; Start 10/31/16 at 11:30; Stop 11/02/16 at 08:44; Status DC Levofloxacin/ Dextrose (Levaquin Per Pharmacy) 1 each PRN DAILY PRN MC SEE COMMENTS; Start 10/31/16 at 11:30; Stop 10/31/16 at 12:57; Status DC Vancomycin HCl 2 gm/Sodium Chloride 500 ml @ 250 mls/hr 1X ONCE IV Last administered on 10/31/16 14:30; Start 10/31/16 at 11:30; Stop 10/31/16 at 13:29 ; Status DC Levofloxacin/ Dextrose 150 ml @ 100 mls/hr ONCE ONCE IV Last administered on 10/31/16 12:45; Start 10/31/16 at 11:30; Stop 10/31/16 at 12:59; Status DC Piperacillin Sod/ Tazobactam Sod 3.375 gm/Sodium Chloride 50 ml @ 100 mls/hr ONCE ONCE IV Last administered on 10/31/16 11:38; Start 10/31/16 at 11:45; Stop 10/31/16 at 12:14; Status DC Levofloxacin/ Dextrose 150 ml @ 100 mls/hr Q48H IV Last administered on 10:54; Start 11/02/16 at 10:00; Stop 11/05/16 at 09:18; Status DC Piperacillin Sod/ Tazobactam Sod 3.375 gm/Sodium Chloride 50 ml @ 100 mls/hr Q6HRS IV Last administered on 11/02/16 05:44; Start 10/31/16 at 18:00; Stop at 08:47; Status DC Acetaminophen (Tylenol) 650 mg PRN Q6HRS PRN PO FEVER Last administered on 11/01 20:26; Start 10/31/16 at 15:15; Stop 11/02/16 at 07:45; Status DC Ondansetron HCl (Zofran) 4 mg PRN Q6HRS PRN IV NAUSEA/VOMITING; Start 10/31/16 at 15:15 Morphine Sulfate 2 mg PRN Q2HR PRN IV PAIN Last administered on 11/08/16 06:16 ; Start 10/31/16 at 15:15 Tramadol HCl (Ultram) 50 mg PRN Q6HRS PRN PO PAIN; Start 10/31/16 at 15:15 Hydralazine HCl (Apresoline) 10 mg PRN Q4HRS PRN IVP ELEVATED BP, SEE COMMENTS Last administered on 11/08/16 05:13; Start 10/31/16 at 15:15 Docusate Sodium (Colace) 100 mg PRN DAILY PRN PO CONSTIPATION Last administered on 11/05/16 12:04; Start 10/31/16 at 15:15 Albuterol/ Ipratropium (Duoneb) 3 ml RTQID NEB Last administered on 11/08/16 11:51; Start 10/31/16 at 16:00 Albuterol Sulfate (Ventolin Neb Soln) 2.5 mg PRN Q4HRS PRN NEB SHORTNESS OF BREATH; Start 10/31/16 at 15:15 Heparin Sodium (Porcine) (Heparin Sq) 5,000 unit Q8HRS SQ Last administered on 11/08/16 05:22; Start 10/31/16 at 22:00 Famotidine (Pepcid) 20 mg QHS IVP Last administered on 11/07/16 21:31; Start 10/31/16 at 21:00 Vancomycin HCl 2 gm/Sodium Chloride 500 ml @ 250 mls/hr Q24H IV Last administered on 11/02/16 14:14; Start 11/01/16 at 14:00; Stop 11/02/16 at 14:24 ; Status DC Vancomycin HCl 1 each 1X ONCE MC Last administered on 11/02/16 13:30; Start 11/02/16 at 13:30; Stop 11/02/16 at 13:31; Status DC Sodium Chloride 1,000 ml @ 80 mls/hr [id number] IV Last administered on 08:27; Start 10/31/16 at 16:15; Stop 11/05/16 at 08:31; Status DC Sodium Chloride 1,000 ml @ 1,000 mls/hr 1X ONCE IV Last administered on 18:04; Start 10/31/16 at 14:00; Stop 10/31/16 at 17:23; Status DC Sodium Chloride 500 ml @ 500 mls/hr 1X ONCE IV Last administered on 17:30; Start 10/31/16 at 17:30; Stop 10/31/16 at 18:29; Status DC Fentanyl Citrate 30 ml @ 0 mls/hr CONT PRN IV PROTOCOL Last administered on 02:20; Start 10/31/16 at 18:30 Propofol 100 ml @ 0 mls/hr CONT PRN IV PER PROTOCOL Last administered on 19:00; Start 10/31/16 at 18:30 Chlorhexidine Gluconate (Peridex) 15 ml BID MM Last administered on 11/08/16 09:17; Start 10/31/16 at 21:00 Artificial Tears (Artificial Tears) 1 drop PRN Q1HR PRN OU DRY EYE; Start 10/31 at 18:30 Midazolam HCl 100 ml @ 0 mls/hr CONT PRN IV PER PROTOCOL Last administered on 07:37; Start 10/31/16 at 18:30 Succinylcholine Chloride (Anectine) 200 mg STK-MED ONCE .ROUTE ; Start 10/31/16 at 18:43; Stop 10/31/16 at 18:44; Status DC Midazolam HCl (Versed) 5 mg STK-MED ONCE .ROUTE ; Start 10/31/16 at 18:45; Stop 10/31/16 at 18:46; Status DC Midazolam HCl (Versed) 5 mg 1X ONCE IV Last administered on 10/31/16 19:30; Start 10/31/16 at 19:30; Stop 10/31/16 at 19:31; Status DC Succinylcholine Chloride (Anectine) 200 mg STK-MED ONCE .ROUTE ; Start 10/31/16 at 18:45; Stop 11/01/16 at 08:13; Status DC Furosemide (Lasix) 20 mg 1X ONCE IVP Last administered on 11/01/16 13:48; Start 11/01/16 at 13:30; Stop 11/01/16 at 13:31; Status DC Sodium Chloride 500 ml @ 500 mls/hr 1X ONCE IV Last administered on 23:09; Start 11/01/16 at 23:15; Stop 11/02/16 at 00:14; Status DC Acetaminophen (Tylenol) 650 mg PRN Q6HRS PRN PEG MILD PAIN / TEMP Last administered on 11/05/16 16:39; Start 11/02/16 at 07:45 Piperacillin Sod/ Tazobactam Sod 4.5 gm/Sodium Chloride 100 ml @ 200 mls/hr Q6HRS IV Last administered on 11/08/16 05:21; Start 11/02/16 at 12:00 Sodium Chloride 500 ml @ 500 mls/hr 1X ONCE IV Last administered on 14:10; Start 11/02/16 at 13:00; Stop 11/02/16 at 13:59; Status DC Sodium Chloride 1,000 ml @ 75 mls/hr [id number] IV ; Start 11/02/16 at 13:00; Stop 11/02/16 at 13:25; Status DC Vancomycin HCl 1.75 gm/Sodium Chloride 500 ml @ 250 mls/hr Q18H IV Last administered on 11/06/16 09:13; Start 11/03/16 at 08:00; Stop 11/06/16 at 14:39 ; Status DC Vancomycin HCl 1 each 1X ONCE MC Last administered on 11/04/16 19:30; Start 11/04/16 at 19:30; Stop 11/04/16 at 19:31; Status DC Metoclopramide HCl (Reglan) 10 mg 1X ONCE IV Last administered on 11/03/16 16 :35; Start 11/03/16 at 15:45; Stop 11/03/16 at 15:46; Status DC Furosemide (Lasix) 20 mg 1X ONCE IVP Last administered on 11/04/16 10:54; Start 11/04/16 at 10:30; Stop 11/04/16 at 10:31; Status DC Metoclopramide HCl (Reglan) 10 mg 1X ONCE IV Last administered on 11/04/16 17 :15; Start 11/04/16 at 17:15; Stop 11/04/16 at 17:16; Status DC Magnesium Sulfate/ Dextrose 50 ml @ 25 mls/hr PRN DAILY PRN IV for Mag < 1.7 on am labs; Start 11/05/16 at 08:15 Hydrochlorothiazide (Hydrodiuril) 25 mg DAILY PO Last administered on 12:04; Start 11/05/16 at 09:00; Stop 11/06/16 at 11:08; Status DC Levofloxacin/ Dextrose 150 ml @ 100 mls/hr Q24H IV Last administered on 10:00; Start 11/05/16 at 10:00; Stop 11/06/16 at 14:39; Status DC Sodium Chloride 1,000 ml @ 75 mls/hr [id number] IV Last administered on 04:54; Start 11/05/16 at 15:45; Stop 11/06/16 at 09:26; Status DC Sodium Chloride 1,000 ml @ 75 mls/hr [id number] IV Last administered on 09:38; Start 11/06/16 at 09:30; Stop 11/07/16 at 07:37; Status DC Furosemide (Lasix) 20 mg 1X ONCE IVP Last administered on 11/06/16 09:38; Start 11/06/16 at 09:30; Stop 11/06/16 at 09:31; Status DC Potassium Phosphate 10 mmol/ Sodium Chloride 103.3333 ml @ 51.667 m... Q2H IV Last administered on 11/06/16 20:16; Start 11/06/16 at 13:30; Stop 11/06/16 at 17:29; Status DC Dextrose 1,000 ml @ 50 mls/hr Q20H IV Last administered on 11/07/16 09:40; Start 11/07/16 at 09:15; Stop 11/07/16 at 12:31; Status DC Dextrose 1,000 ml @ 100 mls/hr Q10H IV Last administered on 11/08/16 08:39; Start 11/07/16 at 19:30 Furosemide (Lasix) 20 mg 1X ONCE IVP Last administered on 11/08/16 09:17; Start 11/08/16 at 09:30; Stop 11/08/16 at 09:31; Status DC Active Scripts Active Reported Trazodone Hcl 100 Mg Tablet 100 Mg PO HS Polyethylene Glycol 3350 255 Gm Powder 17 Gm PO DAILY Olanzapine 20 Mg Tablet 2 Tab PO QHS Montelukast Sodium Tablet (Montelukast Sodium) 10 Mg Tablet 10 Mg PO HS Meloxicam 15 Mg Tablet 1 Tab PO DAILY Losartan Potassium 50 Mg Tablet 50 Mg PO DAILY Lorazepam 1 Mg Tablet 1 Mg PO HS Lasix (Furosemide) 40 Mg Tablet 40 Mg PO PRN DAILY Hydrochlorothiazide Tablet (Hydrochlorothiazide) 25 Mg Tablet 25 Mg PO DAILY Folic Acid 1 Mg Tablet 1 Mg PO DAILY Fluoxetine Hcl 40 Mg Capsule 40 Mg PO DAILY Famotidine 20 Mg Tablet 20 Mg PO BID Duoneb 0.5-3(2.5) Mg/3 Ml (Albuterol/Ipratropium) 3 Ml Ampul.neb 3 Ml NEB QID Docusate Sodium 100 Mg Capsule 1 Cap PO BID Clonidine Hcl 0.1 Mg Tablet 0.1 Mg PO QID Cetirizine Hcl 10 Mg Tablet 1 Tab PO DAILY Vitals/I & O Vital Sign - Last 24 Hours 11/07/16 11/07/16 11/07/16 11/07/16 12:56 13:00 14:00 15:00 Pulse 96 100 102 Resp 21 21 23 B/P (MAP) 154/88 (110) 170/93 (118) 179/100 (126) Pulse Ox 99 100 100 100 O2 Delivery Ventilator Ventilator Ventilator Ventilator 11/07/16 11/07/16 11/07/16 11/07/16 15:06 16:00 16:00 16:05 Temp 99.0 99.0 Pulse 104 Resp 22 B/P (MAP) 171/94 (119) Pulse Ox 100 100 O2 Delivery Ventilator Ventilator Mechanical Ventilator Ventilator 11/07/16 11/07/16 11/07/16 11/07/16 16:48 17:00 17:32 18:00 Pulse 106 99 106 Resp 25 22 B/P (MAP) 171/97 (121) 171/97 148/81 (103) Pulse Ox 100 98 100 O2 Delivery Ventilator Ventilator Ventilator 11/07/16 11/07/16 11/07/16 11/07/16 19:00 19:43 20:00 20:00 Temp 99.0 99.0 Pulse 99 93 Resp 20 20 B/P (MAP) 125/74 (91) 117/73 (88) Pulse Ox 100 99 98 O2 Delivery Ventilator Ventilator Mechanical Ventilator 11/07/16 11/07/16 11/07/16 11/07/16 21:00 21:05 22:00 23:00 Pulse 100 84 Resp 20 22 B/P (MAP) 109/65 (80) 108/66 (80) Pulse Ox 100 99 100 99 O2 Delivery Ventilator Ventilator 11/07/16 11/08/16 11/08/16 11/08/16 23:00 00:00 00:00 01:00 Temp 98.7 98.7 Pulse 102 100 110 Resp 20 23 26 B/P (MAP) 153/83 (106) 159/84 (109) 158/82 (107) Pulse Ox 98 99 97 O2 Delivery Mechanical Ventilator Ventilator 11/08/16 11/08/16 11/08/16 11/08/16 01:30 02:00 02:20 02:50 Pulse 110 Resp 28 24 26 B/P (MAP) 175/90 (118) Pulse Ox 99 97 99 99 O2 Delivery Ventilator Ventilator Ventilator 11/08/16 11/08/16 11/08/16 11/08/16 03:00 03:40 04:00 04:00 Temp 98.9 98.9 Pulse 106 103 Resp 21 24 B/P (MAP) 176/90 (118) 185/87 (119) Pulse Ox 99 99 99 O2 Delivery Ventilator Mechanical Ventilator Ventilator 11/08/16 11/08/16 11/08/16 11/08/16 05:00 05:10 05:13 06:00 Pulse 103 98 116 Resp 24 25 B/P (MAP) 177/88 (117) 177/88 137/67 (90) Pulse Ox 99 99 99 O2 Delivery Ventilator 11/08/16 11/08/16 11/08/16 11/08/16 06:16 07:00 08:00 08:00 Temp 99.1 99.1 Pulse 102 104 Resp 40 19 22 B/P (MAP) 133/61 (85) 146/74 (98) Pulse Ox 99 98 98 O2 Delivery Ventilator Mechanical Ventilator Ventilator 11/08/16 11/08/16 11/08/16 11/08/16 08:08 08:55 09:00 09:18 Pulse 90 Resp 22 20 B/P (MAP) 131/71 (91) Pulse Ox 98 98 100 99 O2 Delivery Ventilator Ventilator Ventilator Ventilator 11/08/16 11/08/16 11/08/16 10:00 11:00 11:52 Pulse 92 89 Resp 20 19 B/P (MAP) 124/69 (87) 111/74 (86) Pulse Ox 100 100 99 O2 Delivery Ventilator Ventilator Ventilator Intake and Output 11/07/16 11/07/16 11/08/16 14:59 22:59 06:59 Intake Total 455 ml 1502.95 ml 2890 ml Output Total 740 ml 665 ml 705 ml Balance -285 ml 837.95 ml 2185 ml SARA ANDERSON MD Nov 08, 2016 12:05
--- NOTE | 2016-11-08 14:16 | PDOC ---
Renal-Progress Notes Subjective Notes Notes REMAINS INTUBATED History of Present Illness Hx of present illness NO CHANGE Vitals Vitals Vital Signs Date Time Temp Pulse Resp B/P (MAP) Pulse Ox O2 Delivery O2 Flow Rate FiO2 11/08/16 13:00 99 19 130/65 (86) 97 Ventilator 11/08/16 12:56 3.0 11/08/16 12:00 99.0 99.0 Weight Weight [ ] I.O. Intake and Output Intake and Output 11/08/16 07:00 Intake Total 4847.95 ml Output Total 2010 ml Balance 2837.95 ml Intake Oral 0 ml IV Total 2507.95 ml Tube Feeding 2340 ml Output Urine Total 2010 ml Gastric Drainage Total 0 ml # Bowel Movements 1 Labs Labs Laboratory Tests Test 11/07/16 18:06 11/08/16 05:15 11/08/16 08:00 11/08/16 12:04 Glucose (Fingerstick) 144 mg/dL (70-99) 146 mg/dL (70-99) White Blood Count 14.4 x10^3/uL (4.0-11.0) Red Blood Count 2.88 x10^6/uL (3.50-5.40) Hemoglobin 8.2 g/dL (12.0-15.5) Hematocrit 26.4 % (36.0-47.0) Mean Corpuscular Volume 91 fL (79-100) Mean Corpuscular Hemoglobin 28 pg (25-35) Mean Corpuscular Hemoglobin Concent 31 g/dL (31-37) Red Cell Distribution Width 16.2 % (11.5-14.5) Platelet Count 376 x10^3/uL (140-400) Neutrophils (%) (Auto) 65 % (31-73) Lymphocytes (%) (Auto) 21 % (24-48) Monocytes (%) (Auto) 10 % (0-9) Eosinophils (%) (Auto) 3 % (0-3) Basophils (%) (Auto) 1 % (0-3) Neutrophils # (Auto) 9.3 x10^3uL (1.8-7.7) Lymphocytes # (Auto) 3.1 x10^3/uL (1.0-4.8) Monocytes # (Auto) 1.4 x10^3/uL (0.0-1.1) Eosinophils # (Auto) 0.5 x10^3/uL (0.0-0.7) Basophils # (Auto) 0.1 x10^3/uL (0.0-0.2) Sodium Level 148 mmol/L (136-145) Potassium Level 3.7 mmol/L (3.5-5.1) Chloride Level 112 mmol/L (98-107) Carbon Dioxide Level 30 mmol/L (21-32) Anion Gap 6 (6-14) Blood Urea Nitrogen 24 mg/dL (7-20) Creatinine 0.9 mg/dL (0.6-1.0) Estimated GFR (Cockcroft-Gault) 76.5 Glucose Level 154 mg/dL (70-99) Calcium Level 9.0 mg/dL (8.5-10.1) Phosphorus Level 3.6 mg/dL (2.6-4.7) Magnesium Level 2.2 mg/dL (1.8-2.4) Creatine Kinase 636 U/L (26-192) Albumin 1.9 g/dL (3.4-5.0) O2 Saturation 92 % (92-99) Arterial Blood pH 7.43 (7.35-7.45) Arterial Blood pCO2 at Patient Temp 45 mmHg (35-46) Arterial Blood pO2 at Patient Temp 69 mmHg (65-108) Arterial Blood HCO3 29 mmol/L (21-28) Arterial Blood Base Excess 4 mmol/L (-3-3) FiO2 50 Micro Micro Microbiology 11/02/16 Blood Culture - Final, Complete NO GROWTH AFTER 5 DAYS 11/01/16 Sputum Culture - Final, Complete 11/01/16 Sputum Result 1 - Final, Complete 10/31/16 Urine Culture - Final, Complete 10/31/16 Urine Culture Result 1 (ISAIAS) - Final, Complete 10/31/16 Antimicrobic Susceptibility - Final, Complete Review of Systems Constitutional: yes: no symptom reported Physical Exam General Appearance: no apparent distress Skin: warm Heart: S1S2, RRR Abdomen: soft, bowel sounds present Extremities: pulses present Neurology: other (SEDATED) Assessment Assessment IMP RESP FAILURE UTI LEUCOCYTOSIS-BETTER HYPERNATREMIA-IMPROVING DIASTOLIC CHF-COMPENSATED POSSIBLE PNEUMONIA MICHI-IMPROVED WITH CR NOW IN THE NORMAL RANGE PLAN VENT SUPPORT CONT TF WATER FLUSHES D5 W TO CONTINUE CONT TO HOLD HCTZ FOR NOW MAY NEED DIURESIS SOON CONT ANTIBIOTICS FERRELL,TITI S MD Nov 08, 2016 14:16
[2016-11-08] MEDS ORDERED: SALIVA STIMULANT AGENT 44ML SPRAY BOTTLE. PO PRN (17:30)
[2016-11-08] MEDS: FAMOTIDINE 20 MG/2 ML VIAL IVP SCH (21:21)
[2016-11-09] VITALS (23 sets, daily range): BP systolic 92–170; BP diastolic 55–94
[2016-11-09] MEDS: PIPERACILLIN/TAZOBACTAM 4.5 GM in IV NORMAL SALINE 100ML 100 ML IV SCH ×5 (00:12→23:42)
[2016-11-09] MEDS: MIDAZOLAM PREMIX 100 ML IV PRN ×2 (05:33→20:59)
[2016-11-09] MEDS: HEPARIN PF for SUB-Q USE 5,000 UNIT/0.5 ML VIAL. SQ SCH ×3 (06:12→20:58)
[2016-11-09 06:36] LABS: BASO # 0.1 x10^3/uL (0.0-0.2); BASO % 1 % (0-3); EOS % 3 % (0-3); HEMATOCRIT 23.7 % (36.0-47.0); HEMOGLOBIN 7.7 g/dL (12.0-15.5); LYMPH % 24 % (24-48); MEAN CORPUSCULAR HEMOGLOBIN 29 pg (25-35); MEAN CORPUSCULAR HGB CONC 32 g/dL (31-37); MEAN CORPUSCULAR VOLUME 90 fL (79-100); MONO % 9 % (0-9); NEUT % 64 % (31-73); PLATELET COUNT 416 x10^3/uL (140-400); RED BLOOD COUNT 2.63 x10^6/uL (3.50-5.40); RED CELL DISTRIBUTION WIDTH 16.3 % (11.5-14.5); WHITE BLOOD COUNT 17.1 x10^3/uL (4.0-11.0)
[2016-11-09 06:55] LABS: CALCIUM 9.4 mg/dL (8.5-10.1); CREATININE 0.8 mg/dL (0.6-1.0); GFR 87.7; PHOSPHORUS 3.5 mg/dL (2.6-4.7); POTASSIUM 3.6 mmol/L (3.5-5.1)
[2016-11-09] MEDS: IPRATRPIUM/ALBUTEROL 0.5/2.5MG 3 ML NEBU. NEB SCH ×4 (08:04→19:39)
[2016-11-09] MEDS: CHLORHEXIDINE 0.12% 15 ML MOUTHWASH. MM SCH ×2 (08:19→20:59)
[2016-11-09] MEDS: IV DEXTROSE 5% 1,000 ML IV SCH (08:20)
[2016-11-09 08:22] LABS: HCO3 ABG 28 mmol/L (21-28); PCO2 ABG 43 mmHg (35-46); PH ABG 7.43 (7.35-7.45); PO2 ABG 73 mmHg (65-108); SAT O2 ABG 94 % (92-99)
[2016-11-09 08:25] LABS: FIO2 ABG 40
--- NOTE | 2016-11-09 09:34 | PDOC ---
Infectious Disease Note Subjective Subjective Remains intubated. Down to 35% FiO2 Tube feedings No fever last 24 hours + BM ROS ROS Unobtainable Vital Sign Vital Signs Vital Signs Date Time Temp Pulse Resp B/P (MAP) Pulse Ox O2 Delivery O2 Flow Rate FiO2 11/09/16 09:00 82 20 111/74 (86) 98 11/09/16 08:51 Ventilator 11/09/16 04:00 3.0 11/09/16 04:00 98.2 98.2 Physical Exam PHYSICAL EXAM GENERAL: intubated, mittens HEENT: OGT, ETT LUNGS: Clear anteriorly HEART: S1S2 regular ABD: Obese, hypoactive BS, soft : [place] EXT: Generalized swelling SKIN: No rash RUE-PICC.(11/04). clean Labs Lab Laboratory Tests Test 11/08/16 12:04 11/09/16 00:16 11/09/16 06:15 11/09/16 06:19 Glucose (Fingerstick) 146 mg/dL (70-99) 149 mg/dL (70-99) 151 mg/dL (70-99) White Blood Count 17.1 x10^3/uL (4.0-11.0) Red Blood Count 2.63 x10^6/uL (3.50-5.40) Hemoglobin 7.7 g/dL (12.0-15.5) Hematocrit 23.7 % (36.0-47.0) Mean Corpuscular Volume 90 fL (79-100) Mean Corpuscular Hemoglobin 29 pg (25-35) Mean Corpuscular Hemoglobin Concent 32 g/dL (31-37) Red Cell Distribution Width 16.3 % (11.5-14.5) Platelet Count 416 x10^3/uL (140-400) Neutrophils (%) (Auto) 64 % (31-73) Lymphocytes (%) (Auto) 24 % (24-48) Monocytes (%) (Auto) 9 % (0-9) Eosinophils (%) (Auto) 3 % (0-3) Basophils (%) (Auto) 1 % (0-3) Neutrophils # (Auto) 11.0 x10^3uL (1.8-7.7) Lymphocytes # (Auto) 4.0 x10^3/uL (1.0-4.8) Monocytes # (Auto) 1.6 x10^3/uL (0.0-1.1) Eosinophils # (Auto) 0.4 x10^3/uL (0.0-0.7) Basophils # (Auto) 0.1 x10^3/uL (0.0-0.2) Sodium Level 143 mmol/L (136-145) Potassium Level 3.6 mmol/L (3.5-5.1) Chloride Level 105 mmol/L (98-107) Carbon Dioxide Level 30 mmol/L (21-32) Anion Gap 8 (6-14) Blood Urea Nitrogen 20 mg/dL (7-20) Creatinine 0.8 mg/dL (0.6-1.0) Estimated GFR (Cockcroft-Gault) 87.7 Glucose Level 150 mg/dL (70-99) Calcium Level 9.4 mg/dL (8.5-10.1) Phosphorus Level 3.5 mg/dL (2.6-4.7) Magnesium Level 2.0 mg/dL (1.8-2.4) Creatine Kinase 330 U/L (26-192) Albumin 2.0 g/dL (3.4-5.0) Test 11/09/16 08:15 11/09/16 08:31 O2 Saturation 94 % (92-99) Arterial Blood pH 7.43 (7.35-7.45) Arterial Blood pCO2 at Patient Temp 43 mmHg (35-46) Arterial Blood pO2 at Patient Temp 73 mmHg (65-108) Arterial Blood HCO3 28 mmol/L (21-28) Arterial Blood Base Excess 3 mmol/L (-3-3) FiO2 40 Glucose (Fingerstick) 124 mg/dL (70-99) Objective Assessment Klebsiella UTI, POA Fever, better Leukocytosis, trending up Respiratory failure Ángel pulmonary infiltrate, CHF vs pneumonia Acute renal failure, improving Rhabdomyolysis, CK trending down Schizophrenia Plan Plan of Care Zosyn Monitor WBC check c. diff Attending Co-Sign The patient was seen and interviewed as well as examined at the bedside. The chart was reviewed. The case was discussed. Agree with the plan of care. DAVE HERNANDEZ APRN Nov 09, 2016 09:34 CAITY SMITH MD Nov 09, 2016 15:31
--- NOTE | 2016-11-09 09:55 | PDOC ---
PROGRESS NOTES Chief Complaint Chief Complaint Complaint: respiratory failure Assessment and plan Acute hypoxic and hypercapnic resp failure with HAP, Failed on bipap and on mechanical ventilation from 10/31/2016 Fever and leukocytosis: Better today, no fevers for hours KPNA urinary tract infection, present on admission Healthcare associated pneumonia possible gram-negative rods COPD morbid obesity Congestive heart failure , LV ejection fraction 65% Ckd with jerrod, vasomotor HX of schizophrenia HTN tobaccoism Elevated CPK, unclear etiology Hypernatremia hypophosphatemia moderate malnutrition PLAN: IV Zosyn, off vancomycin and the Levaquin with ID Ventilator management by pulmonology dc NS, dc 04/17 NS, add free h2o through OGT feeding. add d5, renal increase to 100cc/h CT abdomen pelvis no acute findings noted Chest x-ray reveals reviewed , worse today, will give lasix 20mg iv x1 today Monitor CPK elevated, no obvious signs of trauma seen on exam, externally, discussed with RN-no bruising noted on the posterior aspect of the body. DVT prophylaxis with Lovenox Labs reviewed. CXR DAILY Discussed with RN Periodic nebulizations as per respiratory therapy. Prognosis guarded, condition critical. Place PICC line No immediate family members available. SW consult for DPOA has been intubated for >1week, hope to find a DPOA TO SEE if need trach, vent setting slightly better now. History of Present Illness History of Present Illness Seen in ICU On the ff gtts: versed, fentanyl, IVF D5 at 100cc/hr to address the hypernatremia and TF at 55 cc/hr GEtting distended, protruding tongue HYpernatremia resolved Na 143 today HG 7.7 from 8.2 WBC 17 from 14 - not on steroids, on IV antibiotics PLAN: CPM LAbs in AM BAsing on numbers and course, overall prognosis is poor Vitals Vitals Vital Signs Date Time Temp Pulse Resp B/P (MAP) Pulse Ox O2 Delivery O2 Flow Rate FiO2 11/09/16 09:39 99 Ventilator 11/09/16 09:00 82 20 111/74 (86) 11/09/16 08:00 99.0 99.0 11/09/16 04:00 3.0 Physical Exam Physical Exam intubated, sedated General: Other (serrated, intubated,) Heart: Regular rate (SR), Normal S1, Normal S2, Other Lungs: Crackles Abdomen: Soft, No tenderness, Other (obese, mild distended) Extremities: No cyanosis, Other (1+ bilateral LE pitting edema) Skin: No breakdown, No significant lesion Labs LABS Laboratory Tests Test 11/08/16 12:04 11/09/16 00:16 11/09/16 06:15 11/09/16 06:19 Glucose (Fingerstick) 146 mg/dL (70-99) 149 mg/dL (70-99) 151 mg/dL (70-99) White Blood Count 17.1 x10^3/uL (4.0-11.0) Red Blood Count 2.63 x10^6/uL (3.50-5.40) Hemoglobin 7.7 g/dL (12.0-15.5) Hematocrit 23.7 % (36.0-47.0) Mean Corpuscular Volume 90 fL (79-100) Mean Corpuscular Hemoglobin 29 pg (25-35) Mean Corpuscular Hemoglobin Concent 32 g/dL (31-37) Red Cell Distribution Width 16.3 % (11.5-14.5) Platelet Count 416 x10^3/uL (140-400) Neutrophils (%) (Auto) 64 % (31-73) Lymphocytes (%) (Auto) 24 % (24-48) Monocytes (%) (Auto) 9 % (0-9) Eosinophils (%) (Auto) 3 % (0-3) Basophils (%) (Auto) 1 % (0-3) Neutrophils # (Auto) 11.0 x10^3uL (1.8-7.7) Lymphocytes # (Auto) 4.0 x10^3/uL (1.0-4.8) Monocytes # (Auto) 1.6 x10^3/uL (0.0-1.1) Eosinophils # (Auto) 0.4 x10^3/uL (0.0-0.7) Basophils # (Auto) 0.1 x10^3/uL (0.0-0.2) Sodium Level 143 mmol/L (136-145) Potassium Level 3.6 mmol/L (3.5-5.1) Chloride Level 105 mmol/L (98-107) Carbon Dioxide Level 30 mmol/L (21-32) Anion Gap 8 (6-14) Blood Urea Nitrogen 20 mg/dL (7-20) Creatinine 0.8 mg/dL (0.6-1.0) Estimated GFR (Cockcroft-Gault) 87.7 Glucose Level 150 mg/dL (70-99) Calcium Level 9.4 mg/dL (8.5-10.1) Phosphorus Level 3.5 mg/dL (2.6-4.7) Magnesium Level 2.0 mg/dL (1.8-2.4) Creatine Kinase 330 U/L (26-192) Albumin 2.0 g/dL (3.4-5.0) Test 11/09/16 08:15 11/09/16 08:31 O2 Saturation 94 % (92-99) Arterial Blood pH 7.43 (7.35-7.45) Arterial Blood pCO2 at Patient Temp 43 mmHg (35-46) Arterial Blood pO2 at Patient Temp 73 mmHg (65-108) Arterial Blood HCO3 28 mmol/L (21-28) Arterial Blood Base Excess 3 mmol/L (-3-3) FiO2 40 Glucose (Fingerstick) 124 mg/dL (70-99) Review of Systems Review of Systems sedated, intibated Comment Review of Relevant I have reviewed the following items asif (where applicable) has been applied. Labs Laboratory Tests Test 11/07/16 11:59 11/07/16 18:06 11/08/16 05:15 11/08/16 08:00 Glucose (Fingerstick) 138 mg/dL (70-99) 144 mg/dL (70-99) White Blood Count 14.4 x10^3/uL (4.0-11.0) Red Blood Count 2.88 x10^6/uL (3.50-5.40) Hemoglobin 8.2 g/dL (12.0-15.5) Hematocrit 26.4 % (36.0-47.0) Mean Corpuscular Volume 91 fL (79-100) Mean Corpuscular Hemoglobin 28 pg (25-35) Mean Corpuscular Hemoglobin Concent 31 g/dL (31-37) Red Cell Distribution Width 16.2 % (11.5-14.5) Platelet Count 376 x10^3/uL (140-400) Neutrophils (%) (Auto) 65 % (31-73) Lymphocytes (%) (Auto) 21 % (24-48) Monocytes (%) (Auto) 10 % (0-9) Eosinophils (%) (Auto) 3 % (0-3) Basophils (%) (Auto) 1 % (0-3) Neutrophils # (Auto) 9.3 x10^3uL (1.8-7.7) Lymphocytes # (Auto) 3.1 x10^3/uL (1.0-4.8) Monocytes # (Auto) 1.4 x10^3/uL (0.0-1.1) Eosinophils # (Auto) 0.5 x10^3/uL (0.0-0.7) Basophils # (Auto) 0.1 x10^3/uL (0.0-0.2) Sodium Level 148 mmol/L (136-145) Potassium Level 3.7 mmol/L (3.5-5.1) Chloride Level 112 mmol/L (98-107) Carbon Dioxide Level 30 mmol/L (21-32) Anion Gap 6 (6-14) Blood Urea Nitrogen 24 mg/dL (7-20) Creatinine 0.9 mg/dL (0.6-1.0) Estimated GFR (Cockcroft-Gault) 76.5 Glucose Level 154 mg/dL (70-99) Calcium Level 9.0 mg/dL (8.5-10.1) Phosphorus Level 3.6 mg/dL (2.6-4.7) Magnesium Level 2.2 mg/dL (1.8-2.4) Creatine Kinase 636 U/L (26-192) Albumin 1.9 g/dL (3.4-5.0) O2 Saturation 92 % (92-99) Arterial Blood pH 7.43 (7.35-7.45) Arterial Blood pCO2 at Patient Temp 45 mmHg (35-46) Arterial Blood pO2 at Patient Temp 69 mmHg (65-108) Arterial Blood HCO3 29 mmol/L (21-28) Arterial Blood Base Excess 4 mmol/L (-3-3) FiO2 50 Test 11/08/16 12:04 11/09/16 00:16 11/09/16 06:15 11/09/16 06:19 Glucose (Fingerstick) 146 mg/dL (70-99) 149 mg/dL (70-99) 151 mg/dL (70-99) White Blood Count 17.1 x10^3/uL (4.0-11.0) Red Blood Count 2.63 x10^6/uL (3.50-5.40) Hemoglobin 7.7 g/dL (12.0-15.5) Hematocrit 23.7 % (36.0-47.0) Mean Corpuscular Volume 90 fL (79-100) Mean Corpuscular Hemoglobin 29 pg (25-35) Mean Corpuscular Hemoglobin Concent 32 g/dL (31-37) Red Cell Distribution Width 16.3 % (11.5-14.5) Platelet Count 416 x10^3/uL (140-400) Neutrophils (%) (Auto) 64 % (31-73) Lymphocytes (%) (Auto) 24 % (24-48) Monocytes (%) (Auto) 9 % (0-9) Eosinophils (%) (Auto) 3 % (0-3) Basophils (%) (Auto) 1 % (0-3) Neutrophils # (Auto) 11.0 x10^3uL (1.8-7.7) Lymphocytes # (Auto) 4.0 x10^3/uL (1.0-4.8) Monocytes # (Auto) 1.6 x10^3/uL (0.0-1.1) Eosinophils # (Auto) 0.4 x10^3/uL (0.0-0.7) Basophils # (Auto) 0.1 x10^3/uL (0.0-0.2) Sodium Level 143 mmol/L (136-145) Potassium Level 3.6 mmol/L (3.5-5.1) Chloride Level 105 mmol/L (98-107) Carbon Dioxide Level 30 mmol/L (21-32) Anion Gap 8 (6-14) Blood Urea Nitrogen 20 mg/dL (7-20) Creatinine 0.8 mg/dL (0.6-1.0) Estimated GFR (Cockcroft-Gault) 87.7 Glucose Level 150 mg/dL (70-99) Calcium Level 9.4 mg/dL (8.5-10.1) Phosphorus Level 3.5 mg/dL (2.6-4.7) Magnesium Level 2.0 mg/dL (1.8-2.4) Creatine Kinase 330 U/L (26-192) Albumin 2.0 g/dL (3.4-5.0) Test 11/09/16 08:15 11/09/16 08:31 O2 Saturation 94 % (92-99) Arterial Blood pH 7.43 (7.35-7.45) Arterial Blood pCO2 at Patient Temp 43 mmHg (35-46) Arterial Blood pO2 at Patient Temp 73 mmHg (65-108) Arterial Blood HCO3 28 mmol/L (21-28) Arterial Blood Base Excess 3 mmol/L (-3-3) FiO2 40 Glucose (Fingerstick) 124 mg/dL (70-99) Laboratory Tests Test 11/08/16 12:04 11/09/16 00:16 11/09/16 06:15 11/09/16 06:19 Glucose (Fingerstick) 146 mg/dL (70-99) 149 mg/dL (70-99) 151 mg/dL (70-99) White Blood Count 17.1 x10^3/uL (4.0-11.0) Red Blood Count 2.63 x10^6/uL (3.50-5.40) Hemoglobin 7.7 g/dL (12.0-15.5) Hematocrit 23.7 % (36.0-47.0) Mean Corpuscular Volume 90 fL (79-100) Mean Corpuscular Hemoglobin 29 pg (25-35) Mean Corpuscular Hemoglobin Concent 32 g/dL (31-37) Red Cell Distribution Width 16.3 % (11.5-14.5) Platelet Count 416 x10^3/uL (140-400) Neutrophils (%) (Auto) 64 % (31-73) Lymphocytes (%) (Auto) 24 % (24-48) Monocytes (%) (Auto) 9 % (0-9) Eosinophils (%) (Auto) 3 % (0-3) Basophils (%) (Auto) 1 % (0-3) Neutrophils # (Auto) 11.0 x10^3uL (1.8-7.7) Lymphocytes # (Auto) 4.0 x10^3/uL (1.0-4.8) Monocytes # (Auto) 1.6 x10^3/uL (0.0-1.1) Eosinophils # (Auto) 0.4 x10^3/uL (0.0-0.7) Basophils # (Auto) 0.1 x10^3/uL (0.0-0.2) Sodium Level 143 mmol/L (136-145) Potassium Level 3.6 mmol/L (3.5-5.1) Chloride Level 105 mmol/L (98-107) Carbon Dioxide Level 30 mmol/L (21-32) Anion Gap 8 (6-14) Blood Urea Nitrogen 20 mg/dL (7-20) Creatinine 0.8 mg/dL (0.6-1.0) Estimated GFR (Cockcroft-Gault) 87.7 Glucose Level 150 mg/dL (70-99) Calcium Level 9.4 mg/dL (8.5-10.1) Phosphorus Level 3.5 mg/dL (2.6-4.7) Magnesium Level 2.0 mg/dL (1.8-2.4) Creatine Kinase 330 U/L (26-192) Albumin 2.0 g/dL (3.4-5.0) Test 11/09/16 08:15 11/09/16 08:31 O2 Saturation 94 % (92-99) Arterial Blood pH 7.43 (7.35-7.45) Arterial Blood pCO2 at Patient Temp 43 mmHg (35-46) Arterial Blood pO2 at Patient Temp 73 mmHg (65-108) Arterial Blood HCO3 28 mmol/L (21-28) Arterial Blood Base Excess 3 mmol/L (-3-3) FiO2 40 Glucose (Fingerstick) 124 mg/dL (70-99) Microbiology 11/02/16 Blood Culture - Final, Complete NO GROWTH AFTER 5 DAYS 11/01/16 Sputum Culture - Final, Complete 11/01/16 Sputum Result 1 - Final, Complete 10/31/16 Urine Culture - Final, Complete 10/31/16 Urine Culture Result 1 (ISAIAS) - Final, Complete 10/31/16 Antimicrobic Susceptibility - Final, Complete Medications Current Medications Methylprednisolone Sodium Succinate (SOLU-Medrol 125MG VIAL) 125 mg 1X ONCE IV Last administered on 10/31/16 11:18; Start 10/31/16 at 11:00; Stop 10/31/16 at 11:01; Status DC Albuterol/ Ipratropium (Duoneb) 3 ml 1X ONCE NEB Last administered on 11:00; Start 10/31/16 at 11:00; Stop 10/31/16 at 11:01; Status DC Furosemide (Lasix) 40 mg 1X ONCE IVP Last administered on 10/31/16 11:17; Start 10/31/16 at 11:15; Stop 10/31/16 at 11:16; Status DC Vancomycin HCl (Vanco Per Pharmacy) 1 each PRN DAILY PRN MC SEE COMMENTS Last administered on 11/06/16 10:19; Start 10/31/16 at 11:30; Stop 11/06/16 at 14:40 ; Status DC Piperacillin Sod/ Tazobactam Sod (Zosyn Per Pharmacy) 1 each PRN DAILY PRN MC SEE COMMENTS; Start 10/31/16 at 11:30; Stop 11/02/16 at 08:44; Status DC Levofloxacin/ Dextrose (Levaquin Per Pharmacy) 1 each PRN DAILY PRN MC SEE COMMENTS; Start 10/31/16 at 11:30; Stop 10/31/16 at 12:57; Status DC Vancomycin HCl 2 gm/Sodium Chloride 500 ml @ 250 mls/hr 1X ONCE IV Last administered on 10/31/16 14:30; Start 10/31/16 at 11:30; Stop 10/31/16 at 13:29 ; Status DC Levofloxacin/ Dextrose 150 ml @ 100 mls/hr ONCE ONCE IV Last administered on 10/31/16 12:45; Start 10/31/16 at 11:30; Stop 10/31/16 at 12:59; Status DC Piperacillin Sod/ Tazobactam Sod 3.375 gm/Sodium Chloride 50 ml @ 100 mls/hr ONCE ONCE IV Last administered on 10/31/16 11:38; Start 10/31/16 at 11:45; Stop 10/31/16 at 12:14; Status DC Levofloxacin/ Dextrose 150 ml @ 100 mls/hr Q48H IV Last administered on 10:54; Start 11/02/16 at 10:00; Stop 11/05/16 at 09:18; Status DC Piperacillin Sod/ Tazobactam Sod 3.375 gm/Sodium Chloride 50 ml @ 100 mls/hr Q6HRS IV Last administered on 11/02/16 05:44; Start 10/31/16 at 18:00; Stop at 08:47; Status DC Acetaminophen (Tylenol) 650 mg PRN Q6HRS PRN PO FEVER Last administered on 11/01 20:26; Start 10/31/16 at 15:15; Stop 11/02/16 at 07:45; Status DC Ondansetron HCl (Zofran) 4 mg PRN Q6HRS PRN IV NAUSEA/VOMITING; Start 10/31/16 at 15:15 Morphine Sulfate 2 mg PRN Q2HR PRN IV PAIN Last administered on 11/08/16 06:16 ; Start 10/31/16 at 15:15 Tramadol HCl (Ultram) 50 mg PRN Q6HRS PRN PO PAIN; Start 10/31/16 at 15:15 Hydralazine HCl (Apresoline) 10 mg PRN Q4HRS PRN IVP ELEVATED BP, SEE COMMENTS Last administered on 11/08/16 05:13; Start 10/31/16 at 15:15 Docusate Sodium (Colace) 100 mg PRN DAILY PRN PO CONSTIPATION Last administered on 11/05/16 12:04; Start 10/31/16 at 15:15 Albuterol/ Ipratropium (Duoneb) 3 ml RTQID NEB Last administered on 11/09/16 08:04; Start 10/31/16 at 16:00 Albuterol Sulfate (Ventolin Neb Soln) 2.5 mg PRN Q4HRS PRN NEB SHORTNESS OF BREATH; Start 10/31/16 at 15:15 Heparin Sodium (Porcine) (Heparin Sq) 5,000 unit Q8HRS SQ Last administered on 11/09/16 06:12; Start 10/31/16 at 22:00 Famotidine (Pepcid) 20 mg QHS IVP Last administered on 11/08/16 21:21; Start 10/31/16 at 21:00 Vancomycin HCl 2 gm/Sodium Chloride 500 ml @ 250 mls/hr Q24H IV Last administered on 11/02/16 14:14; Start 11/01/16 at 14:00; Stop 11/02/16 at 14:24 ; Status DC Vancomycin HCl 1 each 1X ONCE MC Last administered on 11/02/16 13:30; Start 11/02/16 at 13:30; Stop 11/02/16 at 13:31; Status DC Sodium Chloride 1,000 ml @ 80 mls/hr [id number] IV Last administered on 08:27; Start 10/31/16 at 16:15; Stop 11/05/16 at 08:31; Status DC Sodium Chloride 1,000 ml @ 1,000 mls/hr 1X ONCE IV Last administered on 18:04; Start 10/31/16 at 14:00; Stop 10/31/16 at 17:23; Status DC Sodium Chloride 500 ml @ 500 mls/hr 1X ONCE IV Last administered on 17:30; Start 10/31/16 at 17:30; Stop 10/31/16 at 18:29; Status DC Fentanyl Citrate 30 ml @ 0 mls/hr CONT PRN IV PROTOCOL Last administered on 08:21; Start 10/31/16 at 18:30 Propofol 100 ml @ 0 mls/hr CONT PRN IV PER PROTOCOL Last administered on 19:00; Start 10/31/16 at 18:30 Chlorhexidine Gluconate (Peridex) 15 ml BID MM Last administered on 11/09/16 08:19; Start 10/31/16 at 21:00 Artificial Tears (Artificial Tears) 1 drop PRN Q1HR PRN OU DRY EYE; Start 10/31 at 18:30 Midazolam HCl 100 ml @ 0 mls/hr CONT PRN IV PER PROTOCOL Last administered on 05:33; Start 10/31/16 at 18:30 Succinylcholine Chloride (Anectine) 200 mg STK-MED ONCE .ROUTE ; Start 10/31/16 at 18:43; Stop 10/31/16 at 18:44; Status DC Midazolam HCl (Versed) 5 mg STK-MED ONCE .ROUTE ; Start 10/31/16 at 18:45; Stop 10/31/16 at 18:46; Status DC Midazolam HCl (Versed) 5 mg 1X ONCE IV Last administered on 10/31/16 19:30; Start 10/31/16 at 19:30; Stop 10/31/16 at 19:31; Status DC Succinylcholine Chloride (Anectine) 200 mg STK-MED ONCE .ROUTE ; Start 10/31/16 at 18:45; Stop 11/01/16 at 08:13; Status DC Furosemide (Lasix) 20 mg 1X ONCE IVP Last administered on 11/01/16 13:48; Start 11/01/16 at 13:30; Stop 11/01/16 at 13:31; Status DC Sodium Chloride 500 ml @ 500 mls/hr 1X ONCE IV Last administered on 23:09; Start 11/01/16 at 23:15; Stop 11/02/16 at 00:14; Status DC Acetaminophen (Tylenol) 650 mg PRN Q6HRS PRN PEG MILD PAIN / TEMP Last administered on 11/05/16 16:39; Start 11/02/16 at 07:45 Piperacillin Sod/ Tazobactam Sod 4.5 gm/Sodium Chloride 100 ml @ 200 mls/hr Q6HRS IV Last administered on 11/09/16 06:09; Start 11/02/16 at 12:00 Sodium Chloride 500 ml @ 500 mls/hr 1X ONCE IV Last administered on 14:10; Start 11/02/16 at 13:00; Stop 11/02/16 at 13:59; Status DC Sodium Chloride 1,000 ml @ 75 mls/hr [id number] IV ; Start 11/02/16 at 13:00; Stop 11/02/16 at 13:25; Status DC Vancomycin HCl 1.75 gm/Sodium Chloride 500 ml @ 250 mls/hr Q18H IV Last administered on 11/06/16 09:13; Start 11/03/16 at 08:00; Stop 11/06/16 at 14:39 ; Status DC Vancomycin HCl 1 each 1X ONCE MC Last administered on 11/04/16 19:30; Start 11/04/16 at 19:30; Stop 11/04/16 at 19:31; Status DC Metoclopramide HCl (Reglan) 10 mg 1X ONCE IV Last administered on 11/03/16 16 :35; Start 11/03/16 at 15:45; Stop 11/03/16 at 15:46; Status DC Furosemide (Lasix) 20 mg 1X ONCE IVP Last administered on 11/04/16 10:54; Start 11/04/16 at 10:30; Stop 11/04/16 at 10:31; Status DC Metoclopramide HCl (Reglan) 10 mg 1X ONCE IV Last administered on 11/04/16 17 :15; Start 11/04/16 at 17:15; Stop 11/04/16 at 17:16; Status DC Magnesium Sulfate/ Dextrose 50 ml @ 25 mls/hr PRN DAILY PRN IV for Mag < 1.7 on am labs; Start 11/05/16 at 08:15 Hydrochlorothiazide (Hydrodiuril) 25 mg DAILY PO Last administered on 12:04; Start 11/05/16 at 09:00; Stop 11/06/16 at 11:08; Status DC Levofloxacin/ Dextrose 150 ml @ 100 mls/hr Q24H IV Last administered on 10:00; Start 11/05/16 at 10:00; Stop 11/06/16 at 14:39; Status DC Sodium Chloride 1,000 ml @ 75 mls/hr [id number] IV Last administered on 04:54; Start 11/05/16 at 15:45; Stop 11/06/16 at 09:26; Status DC Sodium Chloride 1,000 ml @ 75 mls/hr [id number] IV Last administered on 09:38; Start 11/06/16 at 09:30; Stop 11/07/16 at 07:37; Status DC Furosemide (Lasix) 20 mg 1X ONCE IVP Last administered on 11/06/16 09:38; Start 11/06/16 at 09:30; Stop 11/06/16 at 09:31; Status DC Potassium Phosphate 10 mmol/ Sodium Chloride 103.3333 ml @ 51.667 m... Q2H IV Last administered on 11/06/16 20:16; Start 11/06/16 at 13:30; Stop 11/06/16 at 17:29; Status DC Dextrose 1,000 ml @ 50 mls/hr Q20H IV Last administered on 11/07/16 09:40; Start 11/07/16 at 09:15; Stop 11/07/16 at 12:31; Status DC Dextrose 1,000 ml @ 100 mls/hr Q10H IV Last administered on 11/09/16 08:20; Start 11/07/16 at 19:30 Furosemide (Lasix) 20 mg 1X ONCE IVP Last administered on 11/08/16 09:17; Start 11/08/16 at 09:30; Stop 11/08/16 at 09:31; Status DC Saliva Substitute (Biotene Moisturizing Mouth) 2 spray PRN Q15MIN PRN PO DRY MOUTH; Start 11/08/16 at 17:30 Active Scripts Active Reported Trazodone Hcl 100 Mg Tablet 100 Mg PO HS Polyethylene Glycol 3350 255 Gm Powder 17 Gm PO DAILY Olanzapine 20 Mg Tablet 2 Tab PO QHS Montelukast Sodium Tablet (Montelukast Sodium) 10 Mg Tablet 10 Mg PO HS Meloxicam 15 Mg Tablet 1 Tab PO DAILY Losartan Potassium 50 Mg Tablet 50 Mg PO DAILY Lorazepam 1 Mg Tablet 1 Mg PO HS Lasix (Furosemide) 40 Mg Tablet 40 Mg PO PRN DAILY Hydrochlorothiazide Tablet (Hydrochlorothiazide) 25 Mg Tablet 25 Mg PO DAILY Folic Acid 1 Mg Tablet 1 Mg PO DAILY Fluoxetine Hcl 40 Mg Capsule 40 Mg PO DAILY Famotidine 20 Mg Tablet 20 Mg PO BID Duoneb 0.5-3(2.5) Mg/3 Ml (Albuterol/Ipratropium) 3 Ml Ampul.neb 3 Ml NEB QID Docusate Sodium 100 Mg Capsule 1 Cap PO BID Clonidine Hcl 0.1 Mg Tablet 0.1 Mg PO QID Cetirizine Hcl 10 Mg Tablet 1 Tab PO DAILY Vitals/I & O Vital Sign - Last 24 Hours 11/08/16 11/08/16 11/08/16 11/08/16 10:00 11:00 11:52 12:00 Temp 99.0 99.0 Pulse 92 89 101 Resp 20 19 20 B/P (MAP) 124/69 (87) 111/74 (86) 124/65 (84) Pulse Ox 100 100 99 100 O2 Delivery Ventilator Ventilator Ventilator Ventilator 11/08/16 11/08/16 11/08/16 11/08/16 12:00 12:22 12:56 13:00 Pulse 99 Resp 20 19 B/P (MAP) 130/65 (86) Pulse Ox 99 97 O2 Delivery Mechanical Ventilator Ventilator Ventilator O2 Flow Rate 3.0 11/08/16 11/08/16 11/08/16 11/08/16 14:00 15:00 16:00 16:00 Temp 98.3 98.3 Pulse 88 86 89 Resp 19 20 20 B/P (MAP) 116/63 (80) 119/64 (82) 128/75 (92) Pulse Ox 98 98 100 O2 Delivery Ventilator Ventilator Ventilator Mechanical Ventilator 11/08/16 11/08/16 11/08/16 11/08/16 16:24 17:00 18:00 19:00 Temp 98.3 98.3 Pulse 108 109 102 Resp 25 21 B/P (MAP) 123/67 (85) 153/89 (110) 143/73 (96) Pulse Ox 99 98 93 95 O2 Delivery Ventilator Ventilator Ventilator Ventilator 11/08/16 11/08/16 11/08/16 11/08/16 19:57 20:00 20:00 21:00 Temp 99.4 99.4 Pulse 95 93 Resp 20 20 B/P (MAP) 143/78 (99) 120/66 (84) Pulse Ox 96 95 96 O2 Delivery Ventilator Ventilator Mechanical Ventilator Ventilator O2 Flow Rate 3.0 11/08/16 11/08/16 11/08/16 11/08/16 22:00 22:19 22:49 23:00 Pulse 90 106 Resp 20 20 20 20 B/P (MAP) 121/67 (85) 156/88 (110) Pulse Ox 97 99 99 O2 Delivery Ventilator Ventilator Ventilator 11/08/16 11/08/16 11/08/16 11/09/16 23:08 23:59 23:59 01:00 Temp 99.0 99.0 Pulse 98 97 Resp 20 20 B/P (MAP) 142/75 (97) 127/74 (91) Pulse Ox 98 97 100 O2 Delivery Ventilator Ventilator Mechanical Ventilator Ventilator O2 Flow Rate 3.0 11/09/16 11/09/16 11/09/16 11/09/16 01:13 02:00 03:00 04:00 Temp 98.2 98.2 Pulse 90 91 85 Resp 20 20 20 B/P (MAP) 119/59 (79) 121/65 (83) 122/66 (84) Pulse Ox 97 100 97 99 O2 Delivery Ventilator Ventilator Ventilator Ventilator 11/09/16 11/09/16 11/09/16 11/09/16 04:00 04:19 05:00 06:00 Pulse 100 100 Resp 20 20 B/P (MAP) 140/80 (100) 140/77 (98) Pulse Ox 99 100 100 O2 Delivery Mechanical Ventilator Ventilator Ventilator Ventilator O2 Flow Rate 3.0 11/09/16 11/09/16 11/09/16 11/09/16 07:00 08:00 08:00 08:05 Temp 99.0 99.0 Pulse 92 82 Resp 20 20 B/P (MAP) 118/84 (95) 125/73 (90) Pulse Ox 100 100 97 O2 Delivery Ventilator Ventilator Mechanical Ventilator Ventilator 11/09/16 11/09/16 11/09/16 11/09/16 08:21 08:51 09:00 09:39 Pulse 82 Resp 20 B/P (MAP) 111/74 (86) Pulse Ox 100 98 99 O2 Delivery Ventilator Ventilator Ventilator Intake and Output 11/08/16 11/08/16 11/09/16 15:00 23:00 07:00 Intake Total 1550 ml 2723.72 ml 2889 ml Output Total 1145 ml 475 ml 645 ml Balance 405 ml 2248.72 ml 2244 ml RENÉ RAMIREZ MD Nov 09, 2016 09:55
--- NOTE | 2016-11-09 10:06 | PDOC ---
PULMONARY PROGRESS NOTES Subjective PT SEDATED Vitals Vital Signs Date Time Temp Pulse Resp B/P (MAP) Pulse Ox O2 Delivery O2 Flow Rate FiO2 11/09/16 09:39 99 Ventilator 11/09/16 09:00 82 20 111/74 (86) 11/09/16 08:00 99.0 99.0 11/09/16 04:00 3.0 HEENT: Other (nc at perrl, orally intubated, nose clear neck + jvd, no lap, no thyromegaly) Lungs: Crackles Cardiovascular: S1, S2 Abdomen: Soft, Non-tender, Other (no mass) Skin: Warm Labs Laboratory Tests Test 11/07/16 11:59 11/07/16 18:06 11/08/16 05:15 11/08/16 08:00 Glucose (Fingerstick) 138 mg/dL (70-99) 144 mg/dL (70-99) White Blood Count 14.4 x10^3/uL (4.0-11.0) Red Blood Count 2.88 x10^6/uL (3.50-5.40) Hemoglobin 8.2 g/dL (12.0-15.5) Hematocrit 26.4 % (36.0-47.0) Mean Corpuscular Volume 91 fL (79-100) Mean Corpuscular Hemoglobin 28 pg (25-35) Mean Corpuscular Hemoglobin Concent 31 g/dL (31-37) Red Cell Distribution Width 16.2 % (11.5-14.5) Platelet Count 376 x10^3/uL (140-400) Neutrophils (%) (Auto) 65 % (31-73) Lymphocytes (%) (Auto) 21 % (24-48) Monocytes (%) (Auto) 10 % (0-9) Eosinophils (%) (Auto) 3 % (0-3) Basophils (%) (Auto) 1 % (0-3) Neutrophils # (Auto) 9.3 x10^3uL (1.8-7.7) Lymphocytes # (Auto) 3.1 x10^3/uL (1.0-4.8) Monocytes # (Auto) 1.4 x10^3/uL (0.0-1.1) Eosinophils # (Auto) 0.5 x10^3/uL (0.0-0.7) Basophils # (Auto) 0.1 x10^3/uL (0.0-0.2) Sodium Level 148 mmol/L (136-145) Potassium Level 3.7 mmol/L (3.5-5.1) Chloride Level 112 mmol/L (98-107) Carbon Dioxide Level 30 mmol/L (21-32) Anion Gap 6 (6-14) Blood Urea Nitrogen 24 mg/dL (7-20) Creatinine 0.9 mg/dL (0.6-1.0) Estimated GFR (Cockcroft-Gault) 76.5 Glucose Level 154 mg/dL (70-99) Calcium Level 9.0 mg/dL (8.5-10.1) Phosphorus Level 3.6 mg/dL (2.6-4.7) Magnesium Level 2.2 mg/dL (1.8-2.4) Creatine Kinase 636 U/L (26-192) Albumin 1.9 g/dL (3.4-5.0) O2 Saturation 92 % (92-99) Arterial Blood pH 7.43 (7.35-7.45) Arterial Blood pCO2 at Patient Temp 45 mmHg (35-46) Arterial Blood pO2 at Patient Temp 69 mmHg (65-108) Arterial Blood HCO3 29 mmol/L (21-28) Arterial Blood Base Excess 4 mmol/L (-3-3) FiO2 50 Test 11/08/16 12:04 11/09/16 00:16 11/09/16 06:15 11/09/16 06:19 Glucose (Fingerstick) 146 mg/dL (70-99) 149 mg/dL (70-99) 151 mg/dL (70-99) White Blood Count 17.1 x10^3/uL (4.0-11.0) Red Blood Count 2.63 x10^6/uL (3.50-5.40) Hemoglobin 7.7 g/dL (12.0-15.5) Hematocrit 23.7 % (36.0-47.0) Mean Corpuscular Volume 90 fL (79-100) Mean Corpuscular Hemoglobin 29 pg (25-35) Mean Corpuscular Hemoglobin Concent 32 g/dL (31-37) Red Cell Distribution Width 16.3 % (11.5-14.5) Platelet Count 416 x10^3/uL (140-400) Neutrophils (%) (Auto) 64 % (31-73) Lymphocytes (%) (Auto) 24 % (24-48) Monocytes (%) (Auto) 9 % (0-9) Eosinophils (%) (Auto) 3 % (0-3) Basophils (%) (Auto) 1 % (0-3) Neutrophils # (Auto) 11.0 x10^3uL (1.8-7.7) Lymphocytes # (Auto) 4.0 x10^3/uL (1.0-4.8) Monocytes # (Auto) 1.6 x10^3/uL (0.0-1.1) Eosinophils # (Auto) 0.4 x10^3/uL (0.0-0.7) Basophils # (Auto) 0.1 x10^3/uL (0.0-0.2) Sodium Level 143 mmol/L (136-145) Potassium Level 3.6 mmol/L (3.5-5.1) Chloride Level 105 mmol/L (98-107) Carbon Dioxide Level 30 mmol/L (21-32) Anion Gap 8 (6-14) Blood Urea Nitrogen 20 mg/dL (7-20) Creatinine 0.8 mg/dL (0.6-1.0) Estimated GFR (Cockcroft-Gault) 87.7 Glucose Level 150 mg/dL (70-99) Calcium Level 9.4 mg/dL (8.5-10.1) Phosphorus Level 3.5 mg/dL (2.6-4.7) Magnesium Level 2.0 mg/dL (1.8-2.4) Creatine Kinase 330 U/L (26-192) Albumin 2.0 g/dL (3.4-5.0) Test 11/09/16 08:15 11/09/16 08:31 O2 Saturation 94 % (92-99) Arterial Blood pH 7.43 (7.35-7.45) Arterial Blood pCO2 at Patient Temp 43 mmHg (35-46) Arterial Blood pO2 at Patient Temp 73 mmHg (65-108) Arterial Blood HCO3 28 mmol/L (21-28) Arterial Blood Base Excess 3 mmol/L (-3-3) FiO2 40 Glucose (Fingerstick) 124 mg/dL (70-99) Laboratory Tests Test 11/08/16 12:04 7/27/17 00:16 11/09/16 06:15 11/09/16 06:19 Glucose (Fingerstick) 146 mg/dL (70-99) 149 mg/dL (70-99) 151 mg/dL (70-99) White Blood Count 17.1 x10^3/uL (4.0-11.0) Red Blood Count 2.63 x10^6/uL (3.50-5.40) Hemoglobin 7.7 g/dL (12.0-15.5) Hematocrit 23.7 % (36.0-47.0) Mean Corpuscular Volume 90 fL (79-100) Mean Corpuscular Hemoglobin 29 pg (25-35) Mean Corpuscular Hemoglobin Concent 32 g/dL (31-37) Red Cell Distribution Width 16.3 % (11.5-14.5) Platelet Count 416 x10^3/uL (140-400) Neutrophils (%) (Auto) 64 % (31-73) Lymphocytes (%) (Auto) 24 % (24-48) Monocytes (%) (Auto) 9 % (0-9) Eosinophils (%) (Auto) 3 % (0-3) Basophils (%) (Auto) 1 % (0-3) Neutrophils # (Auto) 11.0 x10^3uL (1.8-7.7) Lymphocytes # (Auto) 4.0 x10^3/uL (1.0-4.8) Monocytes # (Auto) 1.6 x10^3/uL (0.0-1.1) Eosinophils # (Auto) 0.4 x10^3/uL (0.0-0.7) Basophils # (Auto) 0.1 x10^3/uL (0.0-0.2) Sodium Level 143 mmol/L (136-145) Potassium Level 3.6 mmol/L (3.5-5.1) Chloride Level 105 mmol/L (98-107) Carbon Dioxide Level 30 mmol/L (21-32) Anion Gap 8 (6-14) Blood Urea Nitrogen 20 mg/dL (7-20) Creatinine 0.8 mg/dL (0.6-1.0) Estimated GFR (Cockcroft-Gault) 87.7 Glucose Level 150 mg/dL (70-99) Calcium Level 9.4 mg/dL (8.5-10.1) Phosphorus Level 3.5 mg/dL (2.6-4.7) Magnesium Level 2.0 mg/dL (1.8-2.4) Creatine Kinase 330 U/L (26-192) Albumin 2.0 g/dL (3.4-5.0) Test 11/09/16 08:15 11/09/16 08:31 O2 Saturation 94 % (92-99) Arterial Blood pH 7.43 (7.35-7.45) Arterial Blood pCO2 at Patient Temp 43 mmHg (35-46) Arterial Blood pO2 at Patient Temp 73 mmHg (65-108) Arterial Blood HCO3 28 mmol/L (21-28) Arterial Blood Base Excess 3 mmol/L (-3-3) FiO2 40 Glucose (Fingerstick) 124 mg/dL (70-99) Medications Active Scripts Medications Dose Route/Sig Max Daily Dose Days Date Category Trazodone Hcl 100 Mg Tablet 100 Mg PO HS 10/31/16 Reported Polyethylene Glycol 3350 255 Gm Powder 17 Gm PO DAILY 10/31/16 Reported Olanzapine 20 Mg Tablet 2 Tab PO QHS 10/31/16 Reported Montelukast Sodium Tablet (Montelukast Sodium) 10 Mg Tablet 10 Mg PO HS 10/31/16 Reported Meloxicam 15 Mg Tablet 1 Tab PO DAILY 10/31/16 Reported Losartan Potassium 50 Mg Tablet 50 Mg PO DAILY 10/31/16 Reported Lorazepam 1 Mg Tablet 1 Mg PO HS 10/31/16 Reported Lasix (Furosemide) 40 Mg Tablet 40 Mg PO PRN DAILY 10/31/16 Reported Hydrochlorothiazide Tablet (Hydrochlorothiazide) 25 Mg Tablet 25 Mg PO DAILY 10/31/16 Reported Folic Acid 1 Mg Tablet 1 Mg PO DAILY 10/31/16 Reported Fluoxetine Hcl 40 Mg Capsule 40 Mg PO DAILY 10/31/16 Reported Famotidine 20 Mg Tablet 20 Mg PO BID 10/31/16 Reported Duoneb 0.5-3(2.5) Mg/3 Ml (Albuterol/Ipratropium) 3 Ml Ampul.neb 3 Ml NEB QID 10/31/16 Reported Docusate Sodium 100 Mg Capsule 1 Cap PO BID 10/31/16 Reported Clonidine Hcl 0.1 Mg Tablet 0.1 Mg PO QID 10/31/16 Reported Cetirizine Hcl 10 Mg Tablet 1 Tab PO DAILY 10/31/16 Reported Comments 1. Improving but persistent bilateral perihilar and left basilar heterogenous air space opacities. 2. Stable small left pleural effusion. 3. Stable life support devices as above. Impression . A/C HYPERCAPNIA HYPOXEMIC RESP FAILURE MULTIFACTORIAL FAILED BIPAP INTUBATED ACUTE HEART FAILURE SUSPECT DIASTOLIC TALHA/OHS ACUTE RENAL FAILURE MORBID OBESITY FEVER POSSIBLE PNEUMONIA GRAM NEG/GRAM POS POSSIBLE SEPSIS/FEVER UTI KLEB RHABDO Plan . NO CHANGE IN STATUS, DID NOT DO WELL WITH TRIAL I THINK SHE NEEDS A TRACH WILL CONSULT THE SURGEON WILL CONTINUE SUPPORT FOLLOW NEPHRO INPUT ANTIBX PER ID DVT AND GI PROPH NUTRITION PER TF CLIVE MEDRANO MD Nov 09, 2016 10:06
--- NOTE | 2016-11-09 10:15 | RAD ---
Portable chest, 11/09/2016: History: Respiratory distress Comparison is made to yesterday's study. The ET tube tip lies 6 cm above the rudy. An NG tube extends into the stomach. A right PICC remains in place although its tip is not clearly defined. The heart is enlarged. There are persistent pulmonary infiltrates, left greater than right, which continue to improve. No definite pleural fluid is seen. There is no evidence of pneumothorax. No new abnormality is detected. IMPRESSION: Improving pulmonary infiltrates.
[2016-11-09] MEDS: diphenhydrAMINE 50 MG/ML VIAL IVP PRN ×3 (11:04→23:43)
--- NOTE | 2016-11-09 12:36 | PDOC ---
Renal-Progress Notes Subjective Notes Notes NONE History of Present Illness Hx of present illness NO CHANGE Vitals Vitals Vital Signs Date Time Temp Pulse Resp B/P (MAP) Pulse Ox O2 Delivery O2 Flow Rate FiO2 11/09/16 12:00 98.7 96 20 170/55 (93) 98 Ventilator 98.7 11/09/16 04:00 3.0 Weight Weight [ ] I.O. Intake and Output Intake and Output 11/09/16 07:00 Intake Total 7162.72 ml Output Total 2265 ml Balance 4897.72 ml IV Total 3951.72 ml Tube Feeding 2361 ml Blood Product IV Normal Saline Flush 225 ml Other 625 ml Output Urine Total 2265 ml Gastric Drainage Total 0 ml Labs Labs Laboratory Tests Test 11/09/16 00:16 11/09/16 06:15 11/09/16 06:19 11/09/16 08:15 Glucose (Fingerstick) 149 mg/dL (70-99) 151 mg/dL (70-99) White Blood Count 17.1 x10^3/uL (4.0-11.0) Red Blood Count 2.63 x10^6/uL (3.50-5.40) Hemoglobin 7.7 g/dL (12.0-15.5) Hematocrit 23.7 % (36.0-47.0) Mean Corpuscular Volume 90 fL (79-100) Mean Corpuscular Hemoglobin 29 pg (25-35) Mean Corpuscular Hemoglobin Concent 32 g/dL (31-37) Red Cell Distribution Width 16.3 % (11.5-14.5) Platelet Count 416 x10^3/uL (140-400) Neutrophils (%) (Auto) 64 % (31-73) Lymphocytes (%) (Auto) 24 % (24-48) Monocytes (%) (Auto) 9 % (0-9) Eosinophils (%) (Auto) 3 % (0-3) Basophils (%) (Auto) 1 % (0-3) Neutrophils # (Auto) 11.0 x10^3uL (1.8-7.7) Lymphocytes # (Auto) 4.0 x10^3/uL (1.0-4.8) Monocytes # (Auto) 1.6 x10^3/uL (0.0-1.1) Eosinophils # (Auto) 0.4 x10^3/uL (0.0-0.7) Basophils # (Auto) 0.1 x10^3/uL (0.0-0.2) Sodium Level 143 mmol/L (136-145) Potassium Level 3.6 mmol/L (3.5-5.1) Chloride Level 105 mmol/L (98-107) Carbon Dioxide Level 30 mmol/L (21-32) Anion Gap 8 (6-14) Blood Urea Nitrogen 20 mg/dL (7-20) Creatinine 0.8 mg/dL (0.6-1.0) Estimated GFR (Cockcroft-Gault) 87.7 Glucose Level 150 mg/dL (70-99) Calcium Level 9.4 mg/dL (8.5-10.1) Phosphorus Level 3.5 mg/dL (2.6-4.7) Magnesium Level 2.0 mg/dL (1.8-2.4) Creatine Kinase 330 U/L (26-192) Albumin 2.0 g/dL (3.4-5.0) O2 Saturation 94 % (92-99) Arterial Blood pH 7.43 (7.35-7.45) Arterial Blood pCO2 at Patient Temp 43 mmHg (35-46) Arterial Blood pO2 at Patient Temp 73 mmHg (65-108) Arterial Blood HCO3 28 mmol/L (21-28) Arterial Blood Base Excess 3 mmol/L (-3-3) FiO2 40 Test 11/09/16 08:31 Glucose (Fingerstick) 124 mg/dL (70-99) Micro Micro Microbiology 11/02/16 Blood Culture - Final, Complete NO GROWTH AFTER 5 DAYS 11/01/16 Sputum Culture - Final, Complete 11/01/16 Sputum Result 1 - Final, Complete 10/31/16 Urine Culture - Final, Complete 10/31/16 Urine Culture Result 1 (ISAIAS) - Final, Complete 10/31/16 Antimicrobic Susceptibility - Final, Complete Review of Systems Constitutional: yes: no symptom reported Physical Exam General Appearance: no apparent distress Skin: warm Heart: S1S2, RRR Abdomen: soft, bowel sounds present Extremities: pulses present Neurology: other (SEDATED) Assessment Assessment IMP RESP FAILURE UTI LEUCOCYTOSIS-BETTER HYPERNATREMIA-IMPROVING DIASTOLIC CHF-COMPENSATED POSSIBLE PNEUMONIA MICHI-RESOLVED WITH CR NOW IN THE NORMAL RANGE PLAN CONT SUPPORTIVE CARE WILL SIGN OFF FERRELL,TITI S MD Nov 09, 2016 12:36
--- NOTE | 2016-11-09 17:33 | PDOC2 ---
PALLIATIVE CARE Palliative Care Note Palliative Care Consult requested by Dr. Guerra to address goals of care Diagnosis: Respiratory Failure-Vent. Intubated .. UTI--present on admission; Diastolic Heart Failure; EF 65%; ?pneumonia; MICHI --resolved. PMH: CHF, schizophrenia, COPD. Patient intubated on Versed and Fentanyl Spoke with Maddie [facility] patient was admitted 01/12/16. Not aware of any visitors to see patient. Patient was making own health care decisions. Had never talked about what she wanted if she became seriously ill. [facility] stated only contact is Brenda Chong who they state is her financial power of civil litigation attorney. Will request document. Labs reviewed. Spoke with "Aunt Debo" [facility] patient has 2 daughters: Supriya-([phone]) -- who has not been involved in patient's life for long period of time. One other daughter --Mishel --who lives in [place] and has not seen her mother for many years. Patient also has 2 brothers. Will attempt to reach family to arrange meeting to discuss goals. [phone] Attempted to reach Supriya, daughter. No answer. LINK OTT Nov 09, 2016 17:33
[2016-11-09] MEDS: FAMOTIDINE 20 MG/2 ML VIAL IVP SCH (20:57)
[2016-11-10] VITALS (23 sets, daily range): BP systolic 96–163; BP diastolic 57–90
[2016-11-10] MEDS: PIPERACILLIN/TAZOBACTAM 4.5 GM in IV NORMAL SALINE 100ML 100 ML IV SCH ×4 (05:50→23:59)
[2016-11-10] MEDS: HEPARIN PF for SUB-Q USE 5,000 UNIT/0.5 ML VIAL. SQ SCH ×3 (05:50→21:14)
[2016-11-10] MEDS: diphenhydrAMINE 50 MG/ML VIAL IVP PRN (05:50)
[2016-11-10 06:05] LABS: BASO # 0.1 x10^3/uL (0.0-0.2); BASO % 1 % (0-3); EOS % 3 % (0-3); HEMATOCRIT 24.8 % (36.0-47.0); HEMOGLOBIN 7.8 g/dL (12.0-15.5); LYMPH # 4.4 x10^3/uL (1.0-4.8); LYMPH % 24 % (24-48); MEAN CORPUSCULAR HEMOGLOBIN 28 pg (25-35); MEAN CORPUSCULAR HGB CONC 31 g/dL (31-37); MEAN CORPUSCULAR VOLUME 91 fL (79-100); MONO % 9 % (0-9); NEUT % 64 % (31-73); PLATELET COUNT 436 x10^3/uL (140-400); RED BLOOD COUNT 2.74 x10^6/uL (3.50-5.40); RED CELL DISTRIBUTION WIDTH 16.1 % (11.5-14.5); WHITE BLOOD COUNT 18.4 x10^3/uL (4.0-11.0)
[2016-11-10 06:34] LABS: CALCIUM 9.4 mg/dL (8.5-10.1); CREATININE 0.8 mg/dL (0.6-1.0); GFR 87.7; POTASSIUM 3.8 mmol/L (3.5-5.1)
[2016-11-10 06:41] LABS: MAGNESIUM 2.1 mg/dL (1.8-2.4)
[2016-11-10] MEDS: IPRATRPIUM/ALBUTEROL 0.5/2.5MG 3 ML NEBU. NEB SCH ×4 (07:09→19:41)
[2016-11-10] MEDS: CETIRIZINE HCL 10 MG TABLET. PO SCH (08:06)
[2016-11-10] MEDS: CHLORHEXIDINE 0.12% 15 ML MOUTHWASH. MM SCH ×2 (08:07→21:14)
--- NOTE | 2016-11-10 08:20 | RAD ---
Portable chest, 11/10/2016: History: Respiratory distress Comparison is made to yesterday's study. The ET tube has its tip located well above the rudy. An NG tube extends a least into the distal esophagus, although its tip is not visible. A right PICC extends into the right atrium. The heart is mildly enlarged and unchanged. There are mild basilar infiltrates with increasing loss of definition of the hemidiaphragms. Patient positioning and a lesser depth of inspiration may be contributing to this apparent worsening. The pulmonary vascularity is somewhat poorly defined. IMPRESSION: 1. Stable tube positions. 2. Slight interval worsening of the pulmonary infiltrates.
[2016-11-10 08:28] LABS: HCO3 ABG 27 mmol/L (21-28); PCO2 ABG 41 mmHg (35-46); PH ABG 7.44 (7.35-7.45); PO2 ABG 71 mmHg (65-108); SAT O2 ABG 93 % (92-99)
--- NOTE | 2016-11-10 09:11 | PDOC ---
Infectious Disease Note Subjective Subjective Remains intubated. 40% FiO2 Tube feedings No fever last 24 hours ROS ROS Vital Sign Vital Signs Vital Signs Date Time Temp Pulse Resp B/P (MAP) Pulse Ox O2 Delivery O2 Flow Rate FiO2 11/10/16 07:10 98 Ventilator 11/10/16 06:48 20 11/10/16 06:00 92 104/66 (79) 11/10/16 04:00 99.1 99.1 Physical Exam PHYSICAL EXAM GENERAL: intubated, mittens HEENT: OGT, ETT LUNGS: Clear anteriorly HEART: S1S2 regular ABD: Obese, hypoactive BS, soft : [place] EXT: Generalized swelling SKIN: No rash SYSTEMS TECHNOLOGIST: Arouses to voice, no follow commands RUE-PICC.(11/04). clean Labs Lab Laboratory Tests Test 11/09/16 17:09 11/09/16 23:41 11/10/16 05:40 Glucose (Fingerstick) 122 mg/dL (70-99) 126 mg/dL (70-99) White Blood Count 18.4 x10^3/uL (4.0-11.0) Red Blood Count 2.74 x10^6/uL (3.50-5.40) Hemoglobin 7.8 g/dL (12.0-15.5) Hematocrit 24.8 % (36.0-47.0) Mean Corpuscular Volume 91 fL (79-100) Mean Corpuscular Hemoglobin 28 pg (25-35) Mean Corpuscular Hemoglobin Concent 31 g/dL (31-37) Red Cell Distribution Width 16.1 % (11.5-14.5) Platelet Count 436 x10^3/uL (140-400) Neutrophils (%) (Auto) 64 % (31-73) Lymphocytes (%) (Auto) 24 % (24-48) Monocytes (%) (Auto) 9 % (0-9) Eosinophils (%) (Auto) 3 % (0-3) Basophils (%) (Auto) 1 % (0-3) Neutrophils # (Auto) 11.7 x10^3uL (1.8-7.7) Lymphocytes # (Auto) 4.4 x10^3/uL (1.0-4.8) Monocytes # (Auto) 1.6 x10^3/uL (0.0-1.1) Eosinophils # (Auto) 0.5 x10^3/uL (0.0-0.7) Basophils # (Auto) 0.1 x10^3/uL (0.0-0.2) Sodium Level 142 mmol/L (136-145) Potassium Level 3.8 mmol/L (3.5-5.1) Chloride Level 105 mmol/L (98-107) Carbon Dioxide Level 30 mmol/L (21-32) Anion Gap 7 (6-14) Blood Urea Nitrogen 18 mg/dL (7-20) Creatinine 0.8 mg/dL (0.6-1.0) Estimated GFR (Cockcroft-Gault) 87.7 Glucose Level 126 mg/dL (70-99) Calcium Level 9.4 mg/dL (8.5-10.1) Phosphorus Level 4.0 mg/dL (2.6-4.7) Magnesium Level 2.1 mg/dL (1.8-2.4) Creatine Kinase 286 U/L (26-192) Albumin 2.0 g/dL (3.4-5.0) CXR IMPRESSION: 1. Stable tube positions. 2. Slight interval worsening of the pulmonary infiltrates. Objective Assessment Klebsiella UTI, POA Fever, better Leukocytosis, trending up Respiratory failure Ángel pulmonary infiltrate, CHF vs pneumonia Acute renal failure, improving Rhabdomyolysis, CK trending down Schizophrenia Plan Plan of Care Zosyn, add Zyvox Monitor labs Await trach Palliative care following Attending Co-Sign The patient was seen and interviewed as well as examined at the bedside. The chart was reviewed. The case was discussed. Agree with the plan of care. DAVE HERNANDEZ APRN Nov 10, 2016 09:11 CAITY SMITH MD Nov 10, 2016 12:38
[2016-11-10 09:22] LABS: FIO2 ABG 40
--- NOTE | 2016-11-10 10:11 | PDOC ---
PROGRESS NOTES Chief Complaint Chief Complaint Complaint: respiratory failure Assessment and plan Acute hypoxic and hypercapnic resp failure with HAP, Failed on bipap and on mechanical ventilation from 10/31/2016 Fever and leukocytosis: Better today, no fevers for hours KPNA urinary tract infection, present on admission Healthcare associated pneumonia possible gram-negative rods COPD morbid obesity Congestive heart failure , LV ejection fraction 65% Ckd with jerrod, vasomotor HX of schizophrenia HTN tobaccoism Elevated CPK, unclear etiology Hypernatremia hypophosphatemia moderate malnutrition History of Present Illness History of Present Illness Seen in ICU On the ff gtts: versed, fentanyl, IVF D5 at 100cc/hr to address the hypernatremia and TF at 55 cc/hr GEtting distended, protruding tongue TCVS consulted for trach HYpernatremia resolved HG 7.8 stable low, s/p PRBC WBC 18 not on steroids, on IV antibiotics PLAN: CPM LAbs in AM BAsing on numbers and course, overall prognosis is poor Trach plans SO far full code Palliative? Vitals Vitals Vital Signs Date Time Temp Pulse Resp B/P (MAP) Pulse Ox O2 Delivery O2 Flow Rate FiO2 11/10/16 09:00 97 24 115/70 (85) 95 Ventilator 11/10/16 04:00 99.1 99.1 Physical Exam Physical Exam intubated, sedated General: Other (serrated, intubated,) Heart: Regular rate (SR), Normal S1, Normal S2, Other Lungs: Crackles Abdomen: Soft, No tenderness, Other (obese, mild distended) Extremities: No cyanosis, Other (1+ bilateral LE pitting edema) Skin: No breakdown, No significant lesion Labs LABS Laboratory Tests Test 11/09/16 17:09 11/09/16 17:45 11/09/16 23:41 11/10/16 05:40 Glucose (Fingerstick) 122 mg/dL (70-99) 126 mg/dL (70-99) Clostridium difficile Toxin (PCR) Negative (Negative) White Blood Count 18.4 x10^3/uL (4.0-11.0) Red Blood Count 2.74 x10^6/uL (3.50-5.40) Hemoglobin 7.8 g/dL (12.0-15.5) Hematocrit 24.8 % (36.0-47.0) Mean Corpuscular Volume 91 fL (79-100) Mean Corpuscular Hemoglobin 28 pg (25-35) Mean Corpuscular Hemoglobin Concent 31 g/dL (31-37) Red Cell Distribution Width 16.1 % (11.5-14.5) Platelet Count 436 x10^3/uL (140-400) Neutrophils (%) (Auto) 64 % (31-73) Lymphocytes (%) (Auto) 24 % (24-48) Monocytes (%) (Auto) 9 % (0-9) Eosinophils (%) (Auto) 3 % (0-3) Basophils (%) (Auto) 1 % (0-3) Neutrophils # (Auto) 11.7 x10^3uL (1.8-7.7) Lymphocytes # (Auto) 4.4 x10^3/uL (1.0-4.8) Monocytes # (Auto) 1.6 x10^3/uL (0.0-1.1) Eosinophils # (Auto) 0.5 x10^3/uL (0.0-0.7) Basophils # (Auto) 0.1 x10^3/uL (0.0-0.2) Sodium Level 142 mmol/L (136-145) Potassium Level 3.8 mmol/L (3.5-5.1) Chloride Level 105 mmol/L (98-107) Carbon Dioxide Level 30 mmol/L (21-32) Anion Gap 7 (6-14) Blood Urea Nitrogen 18 mg/dL (7-20) Creatinine 0.8 mg/dL (0.6-1.0) Estimated GFR (Cockcroft-Gault) 87.7 Glucose Level 126 mg/dL (70-99) Calcium Level 9.4 mg/dL (8.5-10.1) Phosphorus Level 4.0 mg/dL (2.6-4.7) Magnesium Level 2.1 mg/dL (1.8-2.4) Creatine Kinase 286 U/L (26-192) Albumin 2.0 g/dL (3.4-5.0) Test 11/10/16 08:00 O2 Saturation 93 % (92-99) Arterial Blood pH 7.44 (7.35-7.45) Arterial Blood pCO2 at Patient Temp 41 mmHg (35-46) Arterial Blood pO2 at Patient Temp 71 mmHg (65-108) Arterial Blood HCO3 27 mmol/L (21-28) Arterial Blood Base Excess 3 mmol/L (-3-3) FiO2 40 Review of Systems Review of Systems intubated, sedated Comment Review of Relevant I have reviewed the following items asif (where applicable) has been applied. Labs Laboratory Tests Test 11/08/16 12:04 11/09/16 00:16 11/09/16 06:15 11/09/16 06:19 Glucose (Fingerstick) 146 mg/dL (70-99) 149 mg/dL (70-99) 151 mg/dL (70-99) White Blood Count 17.1 x10^3/uL (4.0-11.0) Red Blood Count 2.63 x10^6/uL (3.50-5.40) Hemoglobin 7.7 g/dL (12.0-15.5) Hematocrit 23.7 % (36.0-47.0) Mean Corpuscular Volume 90 fL (79-100) Mean Corpuscular Hemoglobin 29 pg (25-35) Mean Corpuscular Hemoglobin Concent 32 g/dL (31-37) Red Cell Distribution Width 16.3 % (11.5-14.5) Platelet Count 416 x10^3/uL (140-400) Neutrophils (%) (Auto) 64 % (31-73) Lymphocytes (%) (Auto) 24 % (24-48) Monocytes (%) (Auto) 9 % (0-9) Eosinophils (%) (Auto) 3 % (0-3) Basophils (%) (Auto) 1 % (0-3) Neutrophils # (Auto) 11.0 x10^3uL (1.8-7.7) Lymphocytes # (Auto) 4.0 x10^3/uL (1.0-4.8) Monocytes # (Auto) 1.6 x10^3/uL (0.0-1.1) Eosinophils # (Auto) 0.4 x10^3/uL (0.0-0.7) Basophils # (Auto) 0.1 x10^3/uL (0.0-0.2) Sodium Level 143 mmol/L (136-145) Potassium Level 3.6 mmol/L (3.5-5.1) Chloride Level 105 mmol/L (98-107) Carbon Dioxide Level 30 mmol/L (21-32) Anion Gap 8 (6-14) Blood Urea Nitrogen 20 mg/dL (7-20) Creatinine 0.8 mg/dL (0.6-1.0) Estimated GFR (Cockcroft-Gault) 87.7 Glucose Level 150 mg/dL (70-99) Calcium Level 9.4 mg/dL (8.5-10.1) Phosphorus Level 3.5 mg/dL (2.6-4.7) Magnesium Level 2.0 mg/dL (1.8-2.4) Creatine Kinase 330 U/L (26-192) Albumin 2.0 g/dL (3.4-5.0) Test 11/09/16 08:15 11/09/16 08:31 11/09/16 17:09 11/09/16 17:45 O2 Saturation 94 % (92-99) Arterial Blood pH 7.43 (7.35-7.45) Arterial Blood pCO2 at Patient Temp 43 mmHg (35-46) Arterial Blood pO2 at Patient Temp 73 mmHg (65-108) Arterial Blood HCO3 28 mmol/L (21-28) Arterial Blood Base Excess 3 mmol/L (-3-3) FiO2 40 Glucose (Fingerstick) 124 mg/dL (70-99) 122 mg/dL (70-99) Clostridium difficile Toxin (PCR) Negative (Negative) Test 11/09/16 23:41 11/10/16 05:40 11/10/16 08:00 Glucose (Fingerstick) 126 mg/dL (70-99) White Blood Count 18.4 x10^3/uL (4.0-11.0) Red Blood Count 2.74 x10^6/uL (3.50-5.40) Hemoglobin 7.8 g/dL (12.0-15.5) Hematocrit 24.8 % (36.0-47.0) Mean Corpuscular Volume 91 fL (79-100) Mean Corpuscular Hemoglobin 28 pg (25-35) Mean Corpuscular Hemoglobin Concent 31 g/dL (31-37) Red Cell Distribution Width 16.1 % (11.5-14.5) Platelet Count 436 x10^3/uL (140-400) Neutrophils (%) (Auto) 64 % (31-73) Lymphocytes (%) (Auto) 24 % (24-48) Monocytes (%) (Auto) 9 % (0-9) Eosinophils (%) (Auto) 3 % (0-3) Basophils (%) (Auto) 1 % (0-3) Neutrophils # (Auto) 11.7 x10^3uL (1.8-7.7) Lymphocytes # (Auto) 4.4 x10^3/uL (1.0-4.8) Monocytes # (Auto) 1.6 x10^3/uL (0.0-1.1) Eosinophils # (Auto) 0.5 x10^3/uL (0.0-0.7) Basophils # (Auto) 0.1 x10^3/uL (0.0-0.2) Sodium Level 142 mmol/L (136-145) Potassium Level 3.8 mmol/L (3.5-5.1) Chloride Level 105 mmol/L (98-107) Carbon Dioxide Level 30 mmol/L (21-32) Anion Gap 7 (6-14) Blood Urea Nitrogen 18 mg/dL (7-20) Creatinine 0.8 mg/dL (0.6-1.0) Estimated GFR (Cockcroft-Gault) 87.7 Glucose Level 126 mg/dL (70-99) Calcium Level 9.4 mg/dL (8.5-10.1) Phosphorus Level 4.0 mg/dL (2.6-4.7) Magnesium Level 2.1 mg/dL (1.8-2.4) Creatine Kinase 286 U/L (26-192) Albumin 2.0 g/dL (3.4-5.0) O2 Saturation 93 % (92-99) Arterial Blood pH 7.44 (7.35-7.45) Arterial Blood pCO2 at Patient Temp 41 mmHg (35-46) Arterial Blood pO2 at Patient Temp 71 mmHg (65-108) Arterial Blood HCO3 27 mmol/L (21-28) Arterial Blood Base Excess 3 mmol/L (-3-3) FiO2 40 Laboratory Tests Test 11/09/16 17:09 11/09/16 17:45 11/09/16 23:41 11/10/16 05:40 Glucose (Fingerstick) 122 mg/dL (70-99) 126 mg/dL (70-99) Clostridium difficile Toxin (PCR) Negative (Negative) White Blood Count 18.4 x10^3/uL (4.0-11.0) Red Blood Count 2.74 x10^6/uL (3.50-5.40) Hemoglobin 7.8 g/dL (12.0-15.5) Hematocrit 24.8 % (36.0-47.0) Mean Corpuscular Volume 91 fL (79-100) Mean Corpuscular Hemoglobin 28 pg (25-35) Mean Corpuscular Hemoglobin Concent 31 g/dL (31-37) Red Cell Distribution Width 16.1 % (11.5-14.5) Platelet Count 436 x10^3/uL (140-400) Neutrophils (%) (Auto) 64 % (31-73) Lymphocytes (%) (Auto) 24 % (24-48) Monocytes (%) (Auto) 9 % (0-9) Eosinophils (%) (Auto) 3 % (0-3) Basophils (%) (Auto) 1 % (0-3) Neutrophils # (Auto) 11.7 x10^3uL (1.8-7.7) Lymphocytes # (Auto) 4.4 x10^3/uL (1.0-4.8) Monocytes # (Auto) 1.6 x10^3/uL (0.0-1.1) Eosinophils # (Auto) 0.5 x10^3/uL (0.0-0.7) Basophils # (Auto) 0.1 x10^3/uL (0.0-0.2) Sodium Level 142 mmol/L (136-145) Potassium Level 3.8 mmol/L (3.5-5.1) Chloride Level 105 mmol/L (98-107) Carbon Dioxide Level 30 mmol/L (21-32) Anion Gap 7 (6-14) Blood Urea Nitrogen 18 mg/dL (7-20) Creatinine 0.8 mg/dL (0.6-1.0) Estimated GFR (Cockcroft-Gault) 87.7 Glucose Level 126 mg/dL (70-99) Calcium Level 9.4 mg/dL (8.5-10.1) Phosphorus Level 4.0 mg/dL (2.6-4.7) Magnesium Level 2.1 mg/dL (1.8-2.4) Creatine Kinase 286 U/L (26-192) Albumin 2.0 g/dL (3.4-5.0) Test 11/10/16 08:00 O2 Saturation 93 % (92-99) Arterial Blood pH 7.44 (7.35-7.45) Arterial Blood pCO2 at Patient Temp 41 mmHg (35-46) Arterial Blood pO2 at Patient Temp 71 mmHg (65-108) Arterial Blood HCO3 27 mmol/L (21-28) Arterial Blood Base Excess 3 mmol/L (-3-3) FiO2 40 Microbiology 11/02/16 Blood Culture - Final, Complete NO GROWTH AFTER 5 DAYS 11/01/16 Sputum Culture - Final, Complete 11/01/16 Sputum Result 1 - Final, Complete 10/31/16 Urine Culture - Final, Complete 10/31/16 Urine Culture Result 1 (ISAIAS) - Final, Complete 10/31/16 Antimicrobic Susceptibility - Final, Complete Medications Current Medications Methylprednisolone Sodium Succinate (SOLU-Medrol 125MG VIAL) 125 mg 1X ONCE IV Last administered on 10/31/16 11:18; Start 10/31/16 at 11:00; Stop 10/31/16 at 11:01; Status DC Albuterol/ Ipratropium (Duoneb) 3 ml 1X ONCE NEB Last administered on 11:00; Start 10/31/16 at 11:00; Stop 10/31/16 at 11:01; Status DC Furosemide (Lasix) 40 mg 1X ONCE IVP Last administered on 10/31/16 11:17; Start 10/31/16 at 11:15; Stop 10/31/16 at 11:16; Status DC Vancomycin HCl (Vanco Per Pharmacy) 1 each PRN DAILY PRN MC SEE COMMENTS Last administered on 11/06/16 10:19; Start 10/31/16 at 11:30; Stop 11/06/16 at 14:40 ; Status DC Piperacillin Sod/ Tazobactam Sod (Zosyn Per Pharmacy) 1 each PRN DAILY PRN MC SEE COMMENTS; Start 10/31/16 at 11:30; Stop 11/02/16 at 08:44; Status DC Levofloxacin/ Dextrose (Levaquin Per Pharmacy) 1 each PRN DAILY PRN MC SEE COMMENTS; Start 10/31/16 at 11:30; Stop 10/31/16 at 12:57; Status DC Vancomycin HCl 2 gm/Sodium Chloride 500 ml @ 250 mls/hr 1X ONCE IV Last administered on 10/31/16 14:30; Start 10/31/16 at 11:30; Stop 10/31/16 at 13:29 ; Status DC Levofloxacin/ Dextrose 150 ml @ 100 mls/hr ONCE ONCE IV Last administered on 10/31/16 12:45; Start 10/31/16 at 11:30; Stop 10/31/16 at 12:59; Status DC Piperacillin Sod/ Tazobactam Sod 3.375 gm/Sodium Chloride 50 ml @ 100 mls/hr ONCE ONCE IV Last administered on 10/31/16 11:38; Start 10/31/16 at 11:45; Stop 10/31/16 at 12:14; Status DC Levofloxacin/ Dextrose 150 ml @ 100 mls/hr Q48H IV Last administered on 10:54; Start 11/02/16 at 10:00; Stop 11/05/16 at 09:18; Status DC Piperacillin Sod/ Tazobactam Sod 3.375 gm/Sodium Chloride 50 ml @ 100 mls/hr Q6HRS IV Last administered on 11/02/16 05:44; Start 10/31/16 at 18:00; Stop at 08:47; Status DC Acetaminophen (Tylenol) 650 mg PRN Q6HRS PRN PO FEVER Last administered on 11/01 20:26; Start 10/31/16 at 15:15; Stop 11/02/16 at 07:45; Status DC Ondansetron HCl (Zofran) 4 mg PRN Q6HRS PRN IV NAUSEA/VOMITING; Start 10/31/16 at 15:15 Morphine Sulfate 2 mg PRN Q2HR PRN IV PAIN Last administered on 11/08/16 06:16 ; Start 10/31/16 at 15:15 Tramadol HCl (Ultram) 50 mg PRN Q6HRS PRN PO PAIN; Start 10/31/16 at 15:15 Hydralazine HCl (Apresoline) 10 mg PRN Q4HRS PRN IVP ELEVATED BP, SEE COMMENTS Last administered on 11/08/16 05:13; Start 10/31/16 at 15:15 Docusate Sodium (Colace) 100 mg PRN DAILY PRN PO CONSTIPATION Last administered on 11/05/16 12:04; Start 10/31/16 at 15:15 Albuterol/ Ipratropium (Duoneb) 3 ml RTQID NEB Last administered on 11/10/16 07:09; Start 10/31/16 at 16:00 Albuterol Sulfate (Ventolin Neb Soln) 2.5 mg PRN Q4HRS PRN NEB SHORTNESS OF BREATH; Start 10/31/16 at 15:15 Heparin Sodium (Porcine) (Heparin Sq) 5,000 unit Q8HRS SQ Last administered on 11/10/16 05:50; Start 10/31/16 at 22:00 Famotidine (Pepcid) 20 mg QHS IVP Last administered on 11/09/16 20:57; Start 10/31/16 at 21:00 Vancomycin HCl 2 gm/Sodium Chloride 500 ml @ 250 mls/hr Q24H IV Last administered on 11/02/16 14:14; Start 11/01/16 at 14:00; Stop 11/02/16 at 14:24 ; Status DC Vancomycin HCl 1 each 1X ONCE MC Last administered on 11/02/16 13:30; Start 11/02/16 at 13:30; Stop 11/02/16 at 13:31; Status DC Sodium Chloride 1,000 ml @ 80 mls/hr [id number] IV Last administered on 08:27; Start 10/31/16 at 16:15; Stop 11/05/16 at 08:31; Status DC Sodium Chloride 1,000 ml @ 1,000 mls/hr 1X ONCE IV Last administered on 18:04; Start 10/31/16 at 14:00; Stop 10/31/16 at 17:23; Status DC Sodium Chloride 500 ml @ 500 mls/hr 1X ONCE IV Last administered on 17:30; Start 10/31/16 at 17:30; Stop 10/31/16 at 18:29; Status DC Fentanyl Citrate 30 ml @ 0 mls/hr CONT PRN IV PROTOCOL Last administered on 06:18; Start 10/31/16 at 18:30 Propofol 100 ml @ 0 mls/hr CONT PRN IV PER PROTOCOL Last administered on 19:00; Start 10/31/16 at 18:30 Chlorhexidine Gluconate (Peridex) 15 ml BID MM Last administered on 11/09/16 20:59; Start 10/31/16 at 21:00 Artificial Tears (Artificial Tears) 1 drop PRN Q1HR PRN OU DRY EYE; Start 10/31 at 18:30 Midazolam HCl 100 ml @ 0 mls/hr CONT PRN IV PER PROTOCOL Last administered on 20:59; Start 10/31/16 at 18:30 Succinylcholine Chloride (Anectine) 200 mg STK-MED ONCE .ROUTE ; Start 10/31/16 at 18:43; Stop 10/31/16 at 18:44; Status DC Midazolam HCl (Versed) 5 mg STK-MED ONCE .ROUTE ; Start 10/31/16 at 18:45; Stop 10/31/16 at 18:46; Status DC Midazolam HCl (Versed) 5 mg 1X ONCE IV Last administered on 10/31/16 19:30; Start 10/31/16 at 19:30; Stop 10/31/16 at 19:31; Status DC Succinylcholine Chloride (Anectine) 200 mg STK-MED ONCE .ROUTE ; Start 10/31/16 at 18:45; Stop 11/01/16 at 08:13; Status DC Furosemide (Lasix) 20 mg 1X ONCE IVP Last administered on 11/01/16 13:48; Start 11/01/16 at 13:30; Stop 11/01/16 at 13:31; Status DC Sodium Chloride 500 ml @ 500 mls/hr 1X ONCE IV Last administered on 23:09; Start 11/01/16 at 23:15; Stop 11/02/16 at 00:14; Status DC Acetaminophen (Tylenol) 650 mg PRN Q6HRS PRN PEG MILD PAIN / TEMP Last administered on 11/05/16 16:39; Start 11/02/16 at 07:45 Piperacillin Sod/ Tazobactam Sod 4.5 gm/Sodium Chloride 100 ml @ 200 mls/hr Q6HRS IV Last administered on 11/10/16 05:50; Start 11/02/16 at 12:00 Sodium Chloride 500 ml @ 500 mls/hr 1X ONCE IV Last administered on 14:10; Start 11/02/16 at 13:00; Stop 11/02/16 at 13:59; Status DC Sodium Chloride 1,000 ml @ 75 mls/hr [id number] IV ; Start 11/02/16 at 13:00; Stop 11/02/16 at 13:25; Status DC Vancomycin HCl 1.75 gm/Sodium Chloride 500 ml @ 250 mls/hr Q18H IV Last administered on 11/06/16 09:13; Start 11/03/16 at 08:00; Stop 11/06/16 at 14:39 ; Status DC Vancomycin HCl 1 each 1X ONCE MC Last administered on 11/04/16 19:30; Start 11/04/16 at 19:30; Stop 11/04/16 at 19:31; Status DC Metoclopramide HCl (Reglan) 10 mg 1X ONCE IV Last administered on 11/03/16 16 :35; Start 11/03/16 at 15:45; Stop 11/03/16 at 15:46; Status DC Furosemide (Lasix) 20 mg 1X ONCE IVP Last administered on 11/04/16 10:54; Start 11/04/16 at 10:30; Stop 11/04/16 at 10:31; Status DC Metoclopramide HCl (Reglan) 10 mg 1X ONCE IV Last administered on 11/04/16 17 :15; Start 11/04/16 at 17:15; Stop 11/04/16 at 17:16; Status DC Magnesium Sulfate/ Dextrose 50 ml @ 25 mls/hr PRN DAILY PRN IV for Mag < 1.7 on am labs; Start 11/05/16 at 08:15 Hydrochlorothiazide (Hydrodiuril) 25 mg DAILY PO Last administered on 12:04; Start 11/05/16 at 09:00; Stop 11/06/16 at 11:08; Status DC Levofloxacin/ Dextrose 150 ml @ 100 mls/hr Q24H IV Last administered on 10:00; Start 11/05/16 at 10:00; Stop 11/06/16 at 14:39; Status DC Sodium Chloride 1,000 ml @ 75 mls/hr [id number] IV Last administered on 04:54; Start 11/05/16 at 15:45; Stop 11/06/16 at 09:26; Status DC Sodium Chloride 1,000 ml @ 75 mls/hr [id number] IV Last administered on 09:38; Start 11/06/16 at 09:30; Stop 11/07/16 at 07:37; Status DC Furosemide (Lasix) 20 mg 1X ONCE IVP Last administered on 11/06/16 09:38; Start 11/06/16 at 09:30; Stop 11/06/16 at 09:31; Status DC Potassium Phosphate 10 mmol/ Sodium Chloride 103.3333 ml @ 51.667 m... Q2H IV Last administered on 11/06/16 20:16; Start 11/06/16 at 13:30; Stop 11/06/16 at 17:29; Status DC Dextrose 1,000 ml @ 50 mls/hr Q20H IV Last administered on 11/07/16 09:40; Start 11/07/16 at 09:15; Stop 11/07/16 at 12:31; Status DC Dextrose 1,000 ml @ 100 mls/hr Q10H IV Last administered on 11/09/16 08:20; Start 11/07/16 at 19:30; Stop 11/09/16 at 14:39; Status DC Furosemide (Lasix) 20 mg 1X ONCE IVP Last administered on 11/08/16 09:17; Start 11/08/16 at 09:30; Stop 11/08/16 at 09:31; Status DC Saliva Substitute (Biotene Moisturizing Mouth) 2 spray PRN Q15MIN PRN PO DRY MOUTH; Start 11/08/16 at 17:30 Cetirizine HCl (ZyrTEC) 10 mg DAILY PO Last administered on 11/10/16 08:06; Start 11/10/16 at 09:00 Diphenhydramine HCl (Benadryl) 25 mg PRN Q6HRS PRN IVP ITCHING Last administered on 11/10/16 05:50; Start 11/09/16 at 10:30 Linezolid 300 ml @ 300 mls/hr Q12HR IV Last administered on 11/10/16t 10:05; Start 11/10/16 at 10:00 Active Scripts Active Reported Trazodone Hcl 100 Mg Tablet 100 Mg PO HS Polyethylene Glycol 3350 255 Gm Powder 17 Gm PO DAILY Olanzapine 20 Mg Tablet 2 Tab PO QHS Montelukast Sodium Tablet (Montelukast Sodium) 10 Mg Tablet 10 Mg PO HS Meloxicam 15 Mg Tablet 1 Tab PO DAILY Losartan Potassium 50 Mg Tablet 50 Mg PO DAILY Lorazepam 1 Mg Tablet 1 Mg PO HS Lasix (Furosemide) 40 Mg Tablet 40 Mg PO PRN DAILY Hydrochlorothiazide Tablet (Hydrochlorothiazide) 25 Mg Tablet 25 Mg PO DAILY Folic Acid 1 Mg Tablet 1 Mg PO DAILY Fluoxetine Hcl 40 Mg Capsule 40 Mg PO DAILY Famotidine 20 Mg Tablet 20 Mg PO BID Duoneb 0.5-3(2.5) Mg/3 Ml (Albuterol/Ipratropium) 3 Ml Ampul.neb 3 Ml NEB QID Docusate Sodium 100 Mg Capsule 1 Cap PO BID Clonidine Hcl 0.1 Mg Tablet 0.1 Mg PO QID Cetirizine Hcl 10 Mg Tablet 1 Tab PO DAILY Vitals/I & O Vital Sign - Last 24 Hours 11/09/16 11/09/16 11/09/16 11/09/16 11:00 11:30 12:00 12:00 Temp 98.7 98.7 Pulse 84 96 Resp 20 20 B/P (MAP) 113/69 (84) 170/55 (93) Pulse Ox 98 98 98 O2 Delivery Ventilator Ventilator Mechanical Ventilator Ventilator 11/09/16 11/09/16 11/09/16 11/09/16 13:00 14:00 15:00 15:31 Pulse 87 85 95 Resp 20 20 20 B/P (MAP) 116/65 (82) 92/55 (67) 110/69 (83) Pulse Ox 98 99 98 98 O2 Delivery Ventilator Ventilator Ventilator 11/09/16 11/09/16 11/09/16 11/09/16 16:00 16:00 17:00 17:41 Temp 99.5 99.5 Pulse 107 113 Resp 20 20 B/P (MAP) 168/94 (118) 150/85 (106) Pulse Ox 97 100 98 O2 Delivery Ventilator Mechanical Ventilator Ventilator Ventilator 11/09/16 11/09/16 11/09/16 11/09/16 19:00 19:34 19:58 20:00 Temp 99.5 99.5 Pulse 105 Resp 20 21 B/P (MAP) 116/71 (86) Pulse Ox 98 96 O2 Delivery Ventilator Ventilator Mechanical Ventilator 11/09/16 11/09/16 11/09/16 11/09/16 20:00 21:00 22:00 23:00 Pulse 99 106 103 109 Resp 15 22 20 23 B/P (MAP) 134/74 (94) 135/77 (96) 143/78 (99) 159/81 (107) Pulse Ox 98 98 98 97 O2 Delivery Ventilator Ventilator Ventilator Ventilator 11/09/16 11/10/16 11/10/16 11/10/16 23:13 00:00 00:00 01:00 Temp 99.5 99.5 Pulse 106 99 Resp 22 20 B/P (MAP) 154/90 (111) 143/77 (99) Pulse Ox 96 97 97 O2 Delivery Ventilator Mechanical Ventilator Ventilator Ventilator 11/10/16 11/10/16 11/10/16 11/10/16 01:29 02:00 03:00 03:33 Pulse 100 92 Resp 21 19 B/P (MAP) 125/81 (96) 104/66 (79) Pulse Ox 98 99 97 98 O2 Delivery Ventilator Ventilator Ventilator Ventilator 11/10/16 11/10/16 11/10/16 11/10/16 04:00 04:00 05:00 05:29 Temp 99.1 99.1 Pulse 90 89 Resp 19 20 B/P (MAP) 96/57 (70) 110/68 (82) Pulse Ox 98 96 98 O2 Delivery Ventilator Mechanical Ventilator Ventilator Ventilator 11/10/16 11/10/16 11/10/16 11/10/16 06:00 06:18 06:48 07:00 Pulse 92 90 Resp 19 20 20 B/P (MAP) 104/66 (79) 107/68 (81) Pulse Ox 98 98 98 95 O2 Delivery Ventilator Ventilator Ventilator Ventilator 11/10/16 11/10/16 11/10/16 07:10 08:00 09:00 Pulse 97 Resp 24 B/P (MAP) 115/70 (85) Pulse Ox 98 95 O2 Delivery Ventilator Mechanical Ventilator Ventilator Intake and Output 11/09/16 11/09/16 11/10/16 15:00 23:00 07:00 Intake Total 575 ml 1373 ml 2011 ml Output Total 505 ml 756 ml 740 ml Balance 70 ml 617 ml 1271 ml RENÉ RAMIREZ MD Nov 10, 2016 10:11
--- NOTE | 2016-11-10 10:36 | PDOC2 ---
PALLIATIVE CARE Palliative Care Note Palliative Care Patient remains on Vent 40%. Sedated with Fentanyl and Versed gtts. Abdomen distended. Spoke with Supriya, daughter. Daughter understands patient has "Congestive Heart Failure and Lung Problems" Concerned about temperature and infections Reviewed current medical condition: Respiratory Failure-failed BiPap and now intubated; heart failure;, leukocytosis improved, afebrile; MICHI improved. Supriya is unable to attend family meeting today. Discussed need for tracheostomy and PEG tube for continued support. Supriya states she is making decisions for her mother. Had been seeing her in the past but has not visited with recently. Has never had any discussions about what her mother would want if she were seriously ill. Supriya understands the need for tracheostomy for longer term vent and airway management. Discussed need for emt intermediate feeding and PEG. Supriya does not want her mother to have PEG tube now. Wants her fed by IV. Concerned for PEG because fo what "happened with my father" Supriya consented to tracheostomy tube now and may consent later to PEG tube if needed. [id number] Spoke with Lamar BOOTHE. Attempted to call for phone consent x2 RN. Left message to return call. Above reviewed with Deja BOOTHE/SHY and LINK Chang Nov 10, 2016 10:36
--- NOTE | 2016-11-10 10:53 | PDOC ---
PULMONARY PROGRESS NOTES Subjective on vent, on fentanyl versed, open eyes w verbal stimuli. mod ett secretion Vitals Vital Signs Date Time Temp Pulse Resp B/P (MAP) Pulse Ox O2 Delivery O2 Flow Rate FiO2 11/10/16 10:00 101 20 111/71 (84) 98 Ventilator 11/10/16 04:00 99.1 99.1 Comments ros discussed w rn, as mentioned as above, other sys otherwise neg HEENT: Other (nc at perrl, orally intubated, nose clear neck + jvd, no lap, no thyromegaly) Lungs: Crackles Cardiovascular: S1, S2 Abdomen: Soft, Non-tender, Other (no mass) Extremities: Other (edema) Skin: Warm Labs Laboratory Tests Test 11/08/16 12:04 11/09/16 00:16 11/09/16 06:15 11/09/16 06:19 Glucose (Fingerstick) 146 mg/dL (70-99) 149 mg/dL (70-99) 151 mg/dL (70-99) White Blood Count 17.1 x10^3/uL (4.0-11.0) Red Blood Count 2.63 x10^6/uL (3.50-5.40) Hemoglobin 7.7 g/dL (12.0-15.5) Hematocrit 23.7 % (36.0-47.0) Mean Corpuscular Volume 90 fL (79-100) Mean Corpuscular Hemoglobin 29 pg (25-35) Mean Corpuscular Hemoglobin Concent 32 g/dL (31-37) Red Cell Distribution Width 16.3 % (11.5-14.5) Platelet Count 416 x10^3/uL (140-400) Neutrophils (%) (Auto) 64 % (31-73) Lymphocytes (%) (Auto) 24 % (24-48) Monocytes (%) (Auto) 9 % (0-9) Eosinophils (%) (Auto) 3 % (0-3) Basophils (%) (Auto) 1 % (0-3) Neutrophils # (Auto) 11.0 x10^3uL (1.8-7.7) Lymphocytes # (Auto) 4.0 x10^3/uL (1.0-4.8) Monocytes # (Auto) 1.6 x10^3/uL (0.0-1.1) Eosinophils # (Auto) 0.4 x10^3/uL (0.0-0.7) Basophils # (Auto) 0.1 x10^3/uL (0.0-0.2) Sodium Level 143 mmol/L (136-145) Potassium Level 3.6 mmol/L (3.5-5.1) Chloride Level 105 mmol/L (98-107) Carbon Dioxide Level 30 mmol/L (21-32) Anion Gap 8 (6-14) Blood Urea Nitrogen 20 mg/dL (7-20) Creatinine 0.8 mg/dL (0.6-1.0) Estimated GFR (Cockcroft-Gault) 87.7 Glucose Level 150 mg/dL (70-99) Calcium Level 9.4 mg/dL (8.5-10.1) Phosphorus Level 3.5 mg/dL (2.6-4.7) Magnesium Level 2.0 mg/dL (1.8-2.4) Creatine Kinase 330 U/L (26-192) Albumin 2.0 g/dL (3.4-5.0) Test 11/09/16 08:15 11/09/16 08:31 11/09/16 17:09 11/09/16 17:45 O2 Saturation 94 % (92-99) Arterial Blood pH 7.43 (7.35-7.45) Arterial Blood pCO2 at Patient Temp 43 mmHg (35-46) Arterial Blood pO2 at Patient Temp 73 mmHg (65-108) Arterial Blood HCO3 28 mmol/L (21-28) Arterial Blood Base Excess 3 mmol/L (-3-3) FiO2 40 Glucose (Fingerstick) 124 mg/dL (70-99) 122 mg/dL (70-99) Clostridium difficile Toxin (PCR) Negative (Negative) Test 11/09/16 23:41 11/10/16 05:40 11/10/16 08:00 Glucose (Fingerstick) 126 mg/dL (70-99) White Blood Count 18.4 x10^3/uL (4.0-11.0) Red Blood Count 2.74 x10^6/uL (3.50-5.40) Hemoglobin 7.8 g/dL (12.0-15.5) Hematocrit 24.8 % (36.0-47.0) Mean Corpuscular Volume 91 fL (79-100) Mean Corpuscular Hemoglobin 28 pg (25-35) Mean Corpuscular Hemoglobin Concent 31 g/dL (31-37) Red Cell Distribution Width 16.1 % (11.5-14.5) Platelet Count 436 x10^3/uL (140-400) Neutrophils (%) (Auto) 64 % (31-73) Lymphocytes (%) (Auto) 24 % (24-48) Monocytes (%) (Auto) 9 % (0-9) Eosinophils (%) (Auto) 3 % (0-3) Basophils (%) (Auto) 1 % (0-3) Neutrophils # (Auto) 11.7 x10^3uL (1.8-7.7) Lymphocytes # (Auto) 4.4 x10^3/uL (1.0-4.8) Monocytes # (Auto) 1.6 x10^3/uL (0.0-1.1) Eosinophils # (Auto) 0.5 x10^3/uL (0.0-0.7) Basophils # (Auto) 0.1 x10^3/uL (0.0-0.2) Sodium Level 142 mmol/L (136-145) Potassium Level 3.8 mmol/L (3.5-5.1) Chloride Level 105 mmol/L (98-107) Carbon Dioxide Level 30 mmol/L (21-32) Anion Gap 7 (6-14) Blood Urea Nitrogen 18 mg/dL (7-20) Creatinine 0.8 mg/dL (0.6-1.0) Estimated GFR (Cockcroft-Gault) 87.7 Glucose Level 126 mg/dL (70-99) Calcium Level 9.4 mg/dL (8.5-10.1) Phosphorus Level 4.0 mg/dL (2.6-4.7) Magnesium Level 2.1 mg/dL (1.8-2.4) Creatine Kinase 286 U/L (26-192) Albumin 2.0 g/dL (3.4-5.0) O2 Saturation 93 % (92-99) Arterial Blood pH 7.44 (7.35-7.45) Arterial Blood pCO2 at Patient Temp 41 mmHg (35-46) Arterial Blood pO2 at Patient Temp 71 mmHg (65-108) Arterial Blood HCO3 27 mmol/L (21-28) Arterial Blood Base Excess 3 mmol/L (-3-3) FiO2 40 Laboratory Tests Test 11/09/16 17:09 11/09/16 17:45 11/09/16 23:41 11/10/16 05:40 Glucose (Fingerstick) 122 mg/dL (70-99) 126 mg/dL (70-99) Clostridium difficile Toxin (PCR) Negative (Negative) White Blood Count 18.4 x10^3/uL (4.0-11.0) Red Blood Count 2.74 x10^6/uL (3.50-5.40) Hemoglobin 7.8 g/dL (12.0-15.5) Hematocrit 24.8 % (36.0-47.0) Mean Corpuscular Volume 91 fL (79-100) Mean Corpuscular Hemoglobin 28 pg (25-35) Mean Corpuscular Hemoglobin Concent 31 g/dL (31-37) Red Cell Distribution Width 16.1 % (11.5-14.5) Platelet Count 436 x10^3/uL (140-400) Neutrophils (%) (Auto) 64 % (31-73) Lymphocytes (%) (Auto) 24 % (24-48) Monocytes (%) (Auto) 9 % (0-9) Eosinophils (%) (Auto) 3 % (0-3) Basophils (%) (Auto) 1 % (0-3) Neutrophils # (Auto) 11.7 x10^3uL (1.8-7.7) Lymphocytes # (Auto) 4.4 x10^3/uL (1.0-4.8) Monocytes # (Auto) 1.6 x10^3/uL (0.0-1.1) Eosinophils # (Auto) 0.5 x10^3/uL (0.0-0.7) Basophils # (Auto) 0.1 x10^3/uL (0.0-0.2) Sodium Level 142 mmol/L (136-145) Potassium Level 3.8 mmol/L (3.5-5.1) Chloride Level 105 mmol/L (98-107) Carbon Dioxide Level 30 mmol/L (21-32) Anion Gap 7 (6-14) Blood Urea Nitrogen 18 mg/dL (7-20) Creatinine 0.8 mg/dL (0.6-1.0) Estimated GFR (Cockcroft-Gault) 87.7 Glucose Level 126 mg/dL (70-99) Calcium Level 9.4 mg/dL (8.5-10.1) Phosphorus Level 4.0 mg/dL (2.6-4.7) Magnesium Level 2.1 mg/dL (1.8-2.4) Creatine Kinase 286 U/L (26-192) Albumin 2.0 g/dL (3.4-5.0) Test 11/10/16 08:00 O2 Saturation 93 % (92-99) Arterial Blood pH 7.44 (7.35-7.45) Arterial Blood pCO2 at Patient Temp 41 mmHg (35-46) Arterial Blood pO2 at Patient Temp 71 mmHg (65-108) Arterial Blood HCO3 27 mmol/L (21-28) Arterial Blood Base Excess 3 mmol/L (-3-3) FiO2 40 Medications Active Scripts Medications Dose Route/Sig Max Daily Dose Days Date Category Trazodone Hcl 100 Mg Tablet 100 Mg PO HS 10/31/16 Reported Polyethylene Glycol 3350 255 Gm Powder 17 Gm PO DAILY 10/31/16 Reported Olanzapine 20 Mg Tablet 2 Tab PO QHS 10/31/16 Reported Montelukast Sodium Tablet (Montelukast Sodium) 10 Mg Tablet 10 Mg PO HS 10/31/16 Reported Meloxicam 15 Mg Tablet 1 Tab PO DAILY 10/31/16 Reported Losartan Potassium 50 Mg Tablet 50 Mg PO DAILY 10/31/16 Reported Lorazepam 1 Mg Tablet 1 Mg PO HS 10/31/16 Reported Lasix (Furosemide) 40 Mg Tablet 40 Mg PO PRN DAILY 10/31/16 Reported Hydrochlorothiazide Tablet (Hydrochlorothiazide) 25 Mg Tablet 25 Mg PO DAILY 10/31/16 Reported Folic Acid 1 Mg Tablet 1 Mg PO DAILY 10/31/16 Reported Fluoxetine Hcl 40 Mg Capsule 40 Mg PO DAILY 10/31/16 Reported Famotidine 20 Mg Tablet 20 Mg PO BID 10/31/16 Reported Duoneb 0.5-3(2.5) Mg/3 Ml (Albuterol/Ipratropium) 3 Ml Ampul.neb 3 Ml NEB QID 10/31/16 Reported Docusate Sodium 100 Mg Capsule 1 Cap PO BID 10/31/16 Reported Clonidine Hcl 0.1 Mg Tablet 0.1 Mg PO QID 10/31/16 Reported Cetirizine Hcl 10 Mg Tablet 1 Tab PO DAILY 10/31/16 Reported Comments IMPRESSION: 1. Stable tube positions. 2. Slight interval worsening of the pulmonary infiltrates. Impression . A/C HYPERCAPNIA HYPOXEMIC RESP FAILURE MULTIFACTORIAL FAILED BIPAP INTUBATED ACUTE HEART FAILURE SUSPECT DIASTOLIC TALHA/OHS ACUTE RENAL FAILURE MORBID OBESITY FEVER POSSIBLE PNEUMONIA GRAM NEG/GRAM POS POSSIBLE SEPSIS/FEVER UTI KLEB RHABDO Plan . cont vent support, i personally changed peep to 6 agree w steroid keep I<O, cxr worse? lasix I THINK SHE NEEDS A TRACH WILL CONSULT THE SURGEON WILL CONTINUE SUPPORT FOLLOW NEPHRO INPUT ANTIBX PER ID DVT AND GI PROPH NUTRITION PER TF discussed w rn, rt MONICA AMES MD Nov 10, 2016 10:53
[2016-11-10] MEDS: methylPREDNISolone SOD SUCC PF 40 MG/ML VIAL. IV SCH ×2 (11:25→21:13)
[2016-11-10] MEDS: diphenhydrAMINE 50 MG/ML VIAL IVP SCH ×2 (13:41→21:13)
--- NOTE | 2016-11-10 16:01 | PDOC2 ---
CONSULT Date of Consult Date of Consult DATE: 11/10/16 TIME: 15:59 Reason for Consult Reason for Consult: Tracheostomy Referring Physician Referring Physician: Anisha Kearney MD Identification/Chief Complaint Chief Complaint VDRF Problems: Source Source: Chart review History of Present Illness Reason for Visit: Ms Cervantes is a 61-year-old female with multiple comorbidities including COPD, schizophrenia, morbid obesity, who lives in a mental health institution, who was admitted on October 31, 2016 with respiratory failure. She has failed BiPAP and was intubated. She has been unable to wean from the ventilator ever since. Her course has been complicated by sepsis/pneumonia for which she is on antibiotics and acute on chronic renal failure. She also developed angioedema, which is slowly improving. She is currently normotensive. She is on FiO2 40% and PEEP of 6. 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 Past Medical History Cardiovascular: CHF, HTN Pulmonary: Asthma GI: Constipation, GERD Psych: Depression, Schizophrenia ENT: Allergic Rhinitis Past Surgical History Past Surgical History: Other (Unknown) Family History Family History: Family History Unknown Social History <1 pack per day ALCOHOL: none Drugs: None Lives: Retirement Current Medications Current Medications Current Medications Methylprednisolone Sodium Succinate (SOLU-Medrol 125MG VIAL) 125 mg 1X ONCE IV Last administered on 10/31/16 11:18; Start 10/31/16 at 11:00; Stop 10/31/16 at 11:01; Status DC Albuterol/ Ipratropium (Duoneb) 3 ml 1X ONCE NEB Last administered on 11:00; Start 10/31/16 at 11:00; Stop 10/31/16 at 11:01; Status DC Furosemide (Lasix) 40 mg 1X ONCE IVP Last administered on 10/31/16 11:17; Start 10/31/16 at 11:15; Stop 10/31/16 at 11:16; Status DC Vancomycin HCl (Vanco Per Pharmacy) 1 each PRN DAILY PRN MC SEE COMMENTS Last administered on 11/06/16 10:19; Start 10/31/16 at 11:30; Stop 11/06/16 at 14:40 ; Status DC Piperacillin Sod/ Tazobactam Sod (Zosyn Per Pharmacy) 1 each PRN DAILY PRN MC SEE COMMENTS; Start 10/31/16 at 11:30; Stop 11/02/16 at 08:44; Status DC Levofloxacin/ Dextrose (Levaquin Per Pharmacy) 1 each PRN DAILY PRN MC SEE COMMENTS; Start 10/31/16 at 11:30; Stop 10/31/16 at 12:57; Status DC Vancomycin HCl 2 gm/Sodium Chloride 500 ml @ 250 mls/hr 1X ONCE IV Last administered on 10/31/16 14:30; Start 10/31/16 at 11:30; Stop 10/31/16 at 13:29 ; Status DC Levofloxacin/ Dextrose 150 ml @ 100 mls/hr ONCE ONCE IV Last administered on 10/31/16 12:45; Start 10/31/16 at 11:30; Stop 10/31/16 at 12:59; Status DC Piperacillin Sod/ Tazobactam Sod 3.375 gm/Sodium Chloride 50 ml @ 100 mls/hr ONCE ONCE IV Last administered on 10/31/16 11:38; Start 10/31/16 at 11:45; Stop 10/31/16 at 12:14; Status DC Levofloxacin/ Dextrose 150 ml @ 100 mls/hr Q48H IV Last administered on 10:54; Start 11/02/16 at 10:00; Stop 11/05/16 at 09:18; Status DC Piperacillin Sod/ Tazobactam Sod 3.375 gm/Sodium Chloride 50 ml @ 100 mls/hr Q6HRS IV Last administered on 11/02/16 05:44; Start 10/31/16 at 18:00; Stop at 08:47; Status DC Acetaminophen (Tylenol) 650 mg PRN Q6HRS PRN PO FEVER Last administered on 11/01 20:26; Start 10/31/16 at 15:15; Stop 11/02/16 at 07:45; Status DC Ondansetron HCl (Zofran) 4 mg PRN Q6HRS PRN IV NAUSEA/VOMITING; Start 10/31/16 at 15:15 Morphine Sulfate 2 mg PRN Q2HR PRN IV PAIN Last administered on 11/08/16 06:16 ; Start 10/31/16 at 15:15 Tramadol HCl (Ultram) 50 mg PRN Q6HRS PRN PO PAIN; Start 10/31/16 at 15:15 Hydralazine HCl (Apresoline) 10 mg PRN Q4HRS PRN IVP ELEVATED BP, SEE COMMENTS Last administered on 11/08/16 05:13; Start 10/31/16 at 15:15 Docusate Sodium (Colace) 100 mg PRN DAILY PRN PO CONSTIPATION Last administered on 11/05/16 12:04; Start 10/31/16 at 15:15 Albuterol/ Ipratropium (Duoneb) 3 ml RTQID NEB Last administered on 11/10/16 15:34; Start 10/31/16 at 16:00 Albuterol Sulfate (Ventolin Neb Soln) 2.5 mg PRN Q4HRS PRN NEB SHORTNESS OF BREATH; Start 10/31/16 at 15:15 Heparin Sodium (Porcine) (Heparin Sq) 5,000 unit Q8HRS SQ Last administered on 11/10/16 13:43; Start 10/31/16 at 22:00 Famotidine (Pepcid) 20 mg QHS IVP Last administered on 11/09/16 20:57; Start 10/31/16 at 21:00 Vancomycin HCl 2 gm/Sodium Chloride 500 ml @ 250 mls/hr Q24H IV Last administered on 11/02/16 14:14; Start 11/01/16 at 14:00; Stop 11/02/16 at 14:24 ; Status DC Vancomycin HCl 1 each 1X ONCE MC Last administered on 11/02/16 13:30; Start 11/02/16 at 13:30; Stop 11/02/16 at 13:31; Status DC Sodium Chloride 1,000 ml @ 80 mls/hr [id number] IV Last administered on 08:27; Start 10/31/16 at 16:15; Stop 11/05/16 at 08:31; Status DC Sodium Chloride 1,000 ml @ 1,000 mls/hr 1X ONCE IV Last administered on 18:04; Start 10/31/16 at 14:00; Stop 10/31/16 at 17:23; Status DC Sodium Chloride 500 ml @ 500 mls/hr 1X ONCE IV Last administered on 17:30; Start 10/31/16 at 17:30; Stop 10/31/16 at 18:29; Status DC Fentanyl Citrate 30 ml @ 0 mls/hr CONT PRN IV PROTOCOL Last administered on 06:18; Start 10/31/16 at 18:30 Propofol 100 ml @ 0 mls/hr CONT PRN IV PER PROTOCOL Last administered on 19:00; Start 10/31/16 at 18:30 Chlorhexidine Gluconate (Peridex) 15 ml BID MM Last administered on 11/09/16 20:59; Start 10/31/16 at 21:00 Artificial Tears (Artificial Tears) 1 drop PRN Q1HR PRN OU DRY EYE; Start 10/31 at 18:30 Midazolam HCl 100 ml @ 0 mls/hr CONT PRN IV PER PROTOCOL Last administered on 20:59; Start 10/31/16 at 18:30 Succinylcholine Chloride (Anectine) 200 mg STK-MED ONCE .ROUTE ; Start 10/31/16 at 18:43; Stop 10/31/16 at 18:44; Status DC Midazolam HCl (Versed) 5 mg STK-MED ONCE .ROUTE ; Start 10/31/16 at 18:45; Stop 10/31/16 at 18:46; Status DC Midazolam HCl (Versed) 5 mg 1X ONCE IV Last administered on 10/31/16 19:30; Start 10/31/16 at 19:30; Stop 10/31/16 at 19:31; Status DC Succinylcholine Chloride (Anectine) 200 mg STK-MED ONCE .ROUTE ; Start 10/31/16 at 18:45; Stop 11/01/16 at 08:13; Status DC Furosemide (Lasix) 20 mg 1X ONCE IVP Last administered on 11/01/16 13:48; Start 11/01/16 at 13:30; Stop 11/01/16 at 13:31; Status DC Sodium Chloride 500 ml @ 500 mls/hr 1X ONCE IV Last administered on 23:09; Start 11/01/16 at 23:15; Stop 11/02/16 at 00:14; Status DC Acetaminophen (Tylenol) 650 mg PRN Q6HRS PRN PEG MILD PAIN / TEMP Last administered on 11/05/16 16:39; Start 11/02/16 at 07:45 Piperacillin Sod/ Tazobactam Sod 4.5 gm/Sodium Chloride 100 ml @ 200 mls/hr Q6HRS IV Last administered on 11/10/16 11:26; Start 11/02/16 at 12:00 Sodium Chloride 500 ml @ 500 mls/hr 1X ONCE IV Last administered on 14:10; Start 11/02/16 at 13:00; Stop 11/02/16 at 13:59; Status DC Sodium Chloride 1,000 ml @ 75 mls/hr [id number] IV ; Start 11/02/16 at 13:00; Stop 11/02/16 at 13:25; Status DC Vancomycin HCl 1.75 gm/Sodium Chloride 500 ml @ 250 mls/hr Q18H IV Last administered on 11/06/16 09:13; Start 11/03/16 at 08:00; Stop 11/06/16 at 14:39 ; Status DC Vancomycin HCl 1 each 1X ONCE MC Last administered on 11/04/16 19:30; Start 11/04/16 at 19:30; Stop 11/04/16 at 19:31; Status DC Metoclopramide HCl (Reglan) 10 mg 1X ONCE IV Last administered on 11/03/16 16 :35; Start 11/03/16 at 15:45; Stop 11/03/16 at 15:46; Status DC Furosemide (Lasix) 20 mg 1X ONCE IVP Last administered on 11/04/16 10:54; Start 11/04/16 at 10:30; Stop 11/04/16 at 10:31; Status DC Metoclopramide HCl (Reglan) 10 mg 1X ONCE IV Last administered on 11/04/16 17 :15; Start 11/04/16 at 17:15; Stop 11/04/16 at 17:16; Status DC Magnesium Sulfate/ Dextrose 50 ml @ 25 mls/hr PRN DAILY PRN IV for Mag < 1.7 on am labs; Start 11/05/16 at 08:15 Hydrochlorothiazide (Hydrodiuril) 25 mg DAILY PO Last administered on 12:04; Start 11/05/16 at 09:00; Stop 11/06/16 at 11:08; Status DC Levofloxacin/ Dextrose 150 ml @ 100 mls/hr Q24H IV Last administered on 10:00; Start 11/05/16 at 10:00; Stop 11/06/16 at 14:39; Status DC Sodium Chloride 1,000 ml @ 75 mls/hr [id number] IV Last administered on 04:54; Start 11/05/16 at 15:45; Stop 11/06/16 at 09:26; Status DC Sodium Chloride 1,000 ml @ 75 mls/hr [id number] IV Last administered on 09:38; Start 11/06/16 at 09:30; Stop 11/07/16 at 07:37; Status DC Furosemide (Lasix) 20 mg 1X ONCE IVP Last administered on 11/06/16 09:38; Start 11/06/16 at 09:30; Stop 11/06/16 at 09:31; Status DC Potassium Phosphate 10 mmol/ Sodium Chloride 103.3333 ml @ 51.667 m... Q2H IV Last administered on 11/06/16 20:16; Start 11/06/16 at 13:30; Stop 11/06/16 at 17:29; Status DC Dextrose 1,000 ml @ 50 mls/hr Q20H IV Last administered on 11/07/16 09:40; Start 11/07/16 at 09:15; Stop 11/07/16 at 12:31; Status DC Dextrose 1,000 ml @ 100 mls/hr Q10H IV Last administered on 11/09/16 08:20; Start 11/07/16 at 19:30; Stop 11/09/16 at 14:39; Status DC Furosemide (Lasix) 20 mg 1X ONCE IVP Last administered on 11/08/16 09:17; Start 11/08/16 at 09:30; Stop 11/08/16 at 09:31; Status DC Saliva Substitute (Biotene Moisturizing Mouth) 2 spray PRN Q15MIN PRN PO DRY MOUTH; Start 11/08/16 at 17:30 Cetirizine HCl (ZyrTEC) 10 mg DAILY PO Last administered on 11/10/16 08:06; Start 11/10/16 at 09:00 Diphenhydramine HCl (Benadryl) 25 mg PRN Q6HRS PRN IVP ITCHING Last administered on 11/10/16 05:50; Start 11/09/16 at 10:30; Stop 11/10/16 at 14:00 ; Status DC Linezolid 300 ml @ 300 mls/hr Q12HR IV Last administered on 11/10/16 10:05; Start 11/10/16 at 10:00 Diphenhydramine HCl (Benadryl) 50 mg TID IVP Last administered on 11/10/16 13: 41; Start 11/10/16 at 14:00 Methylprednisolone Sodium Succinate (SOLU-Medrol 40MG VIAL) 40 mg Q12HR IV Last administered on 11/10/16 11:25; Start 11/10/16 at 11:00 Active Scripts Active Reported Trazodone Hcl 100 Mg Tablet 100 Mg PO HS Polyethylene Glycol 3350 255 Gm Powder 17 Gm PO DAILY Olanzapine 20 Mg Tablet 2 Tab PO QHS Montelukast Sodium Tablet (Montelukast Sodium) 10 Mg Tablet 10 Mg PO HS Meloxicam 15 Mg Tablet 1 Tab PO DAILY Losartan Potassium 50 Mg Tablet 50 Mg PO DAILY Lorazepam 1 Mg Tablet 1 Mg PO HS Lasix (Furosemide) 40 Mg Tablet 40 Mg PO PRN DAILY Hydrochlorothiazide Tablet (Hydrochlorothiazide) 25 Mg Tablet 25 Mg PO DAILY Folic Acid 1 Mg Tablet 1 Mg PO DAILY Fluoxetine Hcl 40 Mg Capsule 40 Mg PO DAILY Famotidine 20 Mg Tablet 20 Mg PO BID Duoneb 0.5-3(2.5) Mg/3 Ml (Albuterol/Ipratropium) 3 Ml Ampul.neb 3 Ml NEB QID Docusate Sodium 100 Mg Capsule 1 Cap PO BID Clonidine Hcl 0.1 Mg Tablet 0.1 Mg PO QID Cetirizine Hcl 10 Mg Tablet 1 Tab PO DAILY Allergies Allergies: Coded Allergies: haloperidol (Verified Allergy, Intermediate, 11/01/16) tetanus immune globulin (Verified Allergy, Intermediate, 11/01/16) ROS Review of System Unable to obtain-patient intubated and sedated Physical Exam General: Other (sedated) HEENT: Other (obese, decent neck mobilty. Neck landmarks present) Lungs: Other (wheeze) Heart: Regular rate, Normal S1, Normal S2 Abdomen: Soft, No tenderness Extremities: Other (edema) Skin: No significant lesion Neuro: Other (Unable to obtain-patient intubated and sedated) MUSCULOSKELETAL: No deformity Vitals VITALS Vital Signs Date Time Temp Pulse Resp B/P (MAP) Pulse Ox O2 Delivery O2 Flow Rate FiO2 11/10/16 15:40 96 Ventilator 11/10/16 15:00 106 25 163/68 (99) 11/10/16 12:00 98.9 98.9 Labs Labs Laboratory Tests Test 11/09/16 00:16 11/09/16 06:15 11/09/16 06:19 11/09/16 08:15 Glucose (Fingerstick) 149 mg/dL (70-99) 151 mg/dL (70-99) White Blood Count 17.1 x10^3/uL (4.0-11.0) Red Blood Count 2.63 x10^6/uL (3.50-5.40) Hemoglobin 7.7 g/dL (12.0-15.5) Hematocrit 23.7 % (36.0-47.0) Mean Corpuscular Volume 90 fL (79-100) Mean Corpuscular Hemoglobin 29 pg (25-35) Mean Corpuscular Hemoglobin Concent 32 g/dL (31-37) Red Cell Distribution Width 16.3 % (11.5-14.5) Platelet Count 416 x10^3/uL (140-400) Neutrophils (%) (Auto) 64 % (31-73) Lymphocytes (%) (Auto) 24 % (24-48) Monocytes (%) (Auto) 9 % (0-9) Eosinophils (%) (Auto) 3 % (0-3) Basophils (%) (Auto) 1 % (0-3) Neutrophils # (Auto) 11.0 x10^3uL (1.8-7.7) Lymphocytes # (Auto) 4.0 x10^3/uL (1.0-4.8) Monocytes # (Auto) 1.6 x10^3/uL (0.0-1.1) Eosinophils # (Auto) 0.4 x10^3/uL (0.0-0.7) Basophils # (Auto) 0.1 x10^3/uL (0.0-0.2) Sodium Level 143 mmol/L (136-145) Potassium Level 3.6 mmol/L (3.5-5.1) Chloride Level 105 mmol/L (98-107) Carbon Dioxide Level 30 mmol/L (21-32) Anion Gap 8 (6-14) Blood Urea Nitrogen 20 mg/dL (7-20) Creatinine 0.8 mg/dL (0.6-1.0) Estimated GFR (Cockcroft-Gault) 87.7 Glucose Level 150 mg/dL (70-99) Calcium Level 9.4 mg/dL (8.5-10.1) Phosphorus Level 3.5 mg/dL (2.6-4.7) Magnesium Level 2.0 mg/dL (1.8-2.4) Creatine Kinase 330 U/L (26-192) Albumin 2.0 g/dL (3.4-5.0) O2 Saturation 94 % (92-99) Arterial Blood pH 7.43 (7.35-7.45) Arterial Blood pCO2 at Patient Temp 43 mmHg (35-46) Arterial Blood pO2 at Patient Temp 73 mmHg (65-108) Arterial Blood HCO3 28 mmol/L (21-28) Arterial Blood Base Excess 3 mmol/L (-3-3) FiO2 40 Test 11/09/16 08:31 11/09/16 17:09 11/09/16 17:45 11/09/16 23:41 Glucose (Fingerstick) 124 mg/dL (70-99) 122 mg/dL (70-99) 126 mg/dL (70-99) Clostridium difficile Toxin (PCR) Negative (Negative) Test 11/10/16 05:40 11/10/16 08:00 11/10/16 11:28 White Blood Count 18.4 x10^3/uL (4.0-11.0) Red Blood Count 2.74 x10^6/uL (3.50-5.40) Hemoglobin 7.8 g/dL (12.0-15.5) Hematocrit 24.8 % (36.0-47.0) Mean Corpuscular Volume 91 fL (79-100) Mean Corpuscular Hemoglobin 28 pg (25-35) Mean Corpuscular Hemoglobin Concent 31 g/dL (31-37) Red Cell Distribution Width 16.1 % (11.5-14.5) Platelet Count 436 x10^3/uL (140-400) Neutrophils (%) (Auto) 64 % (31-73) Lymphocytes (%) (Auto) 24 % (24-48) Monocytes (%) (Auto) 9 % (0-9) Eosinophils (%) (Auto) 3 % (0-3) Basophils (%) (Auto) 1 % (0-3) Neutrophils # (Auto) 11.7 x10^3uL (1.8-7.7) Lymphocytes # (Auto) 4.4 x10^3/uL (1.0-4.8) Monocytes # (Auto) 1.6 x10^3/uL (0.0-1.1) Eosinophils # (Auto) 0.5 x10^3/uL (0.0-0.7) Basophils # (Auto) 0.1 x10^3/uL (0.0-0.2) Sodium Level 142 mmol/L (136-145) Potassium Level 3.8 mmol/L (3.5-5.1) Chloride Level 105 mmol/L (98-107) Carbon Dioxide Level 30 mmol/L (21-32) Anion Gap 7 (6-14) Blood Urea Nitrogen 18 mg/dL (7-20) Creatinine 0.8 mg/dL (0.6-1.0) Estimated GFR (Cockcroft-Gault) 87.7 Glucose Level 126 mg/dL (70-99) Calcium Level 9.4 mg/dL (8.5-10.1) Phosphorus Level 4.0 mg/dL (2.6-4.7) Magnesium Level 2.1 mg/dL (1.8-2.4) Creatine Kinase 286 U/L (26-192) Albumin 2.0 g/dL (3.4-5.0) O2 Saturation 93 % (92-99) Arterial Blood pH 7.44 (7.35-7.45) Arterial Blood pCO2 at Patient Temp 41 mmHg (35-46) Arterial Blood pO2 at Patient Temp 71 mmHg (65-108) Arterial Blood HCO3 27 mmol/L (21-28) Arterial Blood Base Excess 3 mmol/L (-3-3) FiO2 40 Glucose (Fingerstick) 128 mg/dL (70-99) Laboratory Tests Test 11/09/16 17:09 11/09/16 17:45 11/09/16 23:41 11/10/16 05:40 Glucose (Fingerstick) 122 mg/dL (70-99) 126 mg/dL (70-99) Clostridium difficile Toxin (PCR) Negative (Negative) White Blood Count 18.4 x10^3/uL (4.0-11.0) Red Blood Count 2.74 x10^6/uL (3.50-5.40) Hemoglobin 7.8 g/dL (12.0-15.5) Hematocrit 24.8 % (36.0-47.0) Mean Corpuscular Volume 91 fL (79-100) Mean Corpuscular Hemoglobin 28 pg (25-35) Mean Corpuscular Hemoglobin Concent 31 g/dL (31-37) Red Cell Distribution Width 16.1 % (11.5-14.5) Platelet Count 436 x10^3/uL (140-400) Neutrophils (%) (Auto) 64 % (31-73) Lymphocytes (%) (Auto) 24 % (24-48) Monocytes (%) (Auto) 9 % (0-9) Eosinophils (%) (Auto) 3 % (0-3) Basophils (%) (Auto) 1 % (0-3) Neutrophils # (Auto) 11.7 x10^3uL (1.8-7.7) Lymphocytes # (Auto) 4.4 x10^3/uL (1.0-4.8) Monocytes # (Auto) 1.6 x10^3/uL (0.0-1.1) Eosinophils # (Auto) 0.5 x10^3/uL (0.0-0.7) Basophils # (Auto) 0.1 x10^3/uL (0.0-0.2) Sodium Level 142 mmol/L (136-145) Potassium Level 3.8 mmol/L (3.5-5.1) Chloride Level 105 mmol/L (98-107) Carbon Dioxide Level 30 mmol/L (21-32) Anion Gap 7 (6-14) Blood Urea Nitrogen 18 mg/dL (7-20) Creatinine 0.8 mg/dL (0.6-1.0) Estimated GFR (Cockcroft-Gault) 87.7 Glucose Level 126 mg/dL (70-99) Calcium Level 9.4 mg/dL (8.5-10.1) Phosphorus Level 4.0 mg/dL (2.6-4.7) Magnesium Level 2.1 mg/dL (1.8-2.4) Creatine Kinase 286 U/L (26-192) Albumin 2.0 g/dL (3.4-5.0) Test 11/10/16 08:00 11/10/16 11:28 O2 Saturation 93 % (92-99) Arterial Blood pH 7.44 (7.35-7.45) Arterial Blood pCO2 at Patient Temp 41 mmHg (35-46) Arterial Blood pO2 at Patient Temp 71 mmHg (65-108) Arterial Blood HCO3 27 mmol/L (21-28) Arterial Blood Base Excess 3 mmol/L (-3-3) FiO2 40 Glucose (Fingerstick) 128 mg/dL (70-99) Assessment/Plan Assessment/Plan 61-year-old female with multiple comorbidities including COPD, schizophrenia, morbid obesity, who lives in a mental health institution, who was admitted on October 31, 2016 with respiratory failure. She failed BiPAP and was intubated on admission. She has been unable to wean from the ventilator ever since. Her course has been complicated by sepsis/pneumonia for which she is on antibiotics and acute on chronic renal failure. She also developed angioedema, which is slowly improving. She is on FiO2 40% and PEEP of 6. A tracheostomy is indicated, to aid in weaning from the ventilator. The patient apparently has a daughter that lives in the area, was not spoken to her in a while. It appears that she is the next of kin and will be making decisions. A daughter has spoken to one of our RNs, and has agreed with proceeding with a tracheostomy. Plan for tracheostomy on Sunday November 13, 2016 in the afternoon. Nothing by mouth after Sunday midnight Type and screen Obtain informed consent from daughter KENDRICK MELVIN MD Nov 10, 2016 16:01
[2016-11-10] MEDS: FAMOTIDINE 20 MG/2 ML VIAL IVP SCH (21:13)
[2016-11-10] MEDS: MIDAZOLAM PREMIX 100 ML IV PRN (23:15)
[2016-11-11] VITALS (24 sets, daily range): BP systolic 115–165; BP diastolic 68–97
[2016-11-11] MEDS: PIPERACILLIN/TAZOBACTAM 4.5 GM in IV NORMAL SALINE 100ML 100 ML IV SCH ×3 (05:21→18:54)
[2016-11-11] MEDS: HEPARIN PF for SUB-Q USE 5,000 UNIT/0.5 ML VIAL. SQ SCH ×3 (05:22→20:59)
[2016-11-11 05:50] LABS: BASO # 0.1 x10^3/uL (0.0-0.2); BASO % 0 % (0-3); EOS % 0 % (0-3); HEMATOCRIT 24.3 % (36.0-47.0); HEMOGLOBIN 7.6 g/dL (12.0-15.5); LYMPH # 2.8 x10^3/uL (1.0-4.8); LYMPH % 13 % (24-48); MEAN CORPUSCULAR HEMOGLOBIN 28 pg (25-35); MEAN CORPUSCULAR HGB CONC 32 g/dL (31-37); MEAN CORPUSCULAR VOLUME 90 fL (79-100); MONO % 4 % (0-9); NEUT % 83 % (31-73); PLATELET COUNT 467 x10^3/uL (140-400); RED BLOOD COUNT 2.71 x10^6/uL (3.50-5.40); RED CELL DISTRIBUTION WIDTH 15.8 % (11.5-14.5); WHITE BLOOD COUNT 21.5 x10^3/uL (4.0-11.0)
[2016-11-11 06:01] LABS: CALCIUM 8.9 mg/dL (8.5-10.1); CREATININE 0.8 mg/dL (0.6-1.0); GFR 87.7; PHOSPHORUS 3.3 mg/dL (2.6-4.7); POTASSIUM 4.8 mmol/L (3.5-5.1)
[2016-11-11] MEDS: IPRATRPIUM/ALBUTEROL 0.5/2.5MG 3 ML NEBU. NEB SCH ×4 (07:18→19:47)
[2016-11-11 08:17] LABS: HCO3 ABG 28 mmol/L (21-28); PCO2 ABG 42 mmHg (35-46); PH ABG 7.44 (7.35-7.45); PO2 ABG 59 mmHg (65-108); SAT O2 ABG 88 % (92-99)
[2016-11-11 08:18] LABS: FIO2 ABG 40
[2016-11-11] MEDS: CETIRIZINE HCL 10 MG TABLET. PO SCH (08:20)
[2016-11-11] MEDS: methylPREDNISolone SOD SUCC PF 40 MG/ML VIAL. IV SCH ×2 (08:20→20:59)
[2016-11-11] MEDS: diphenhydrAMINE 50 MG/ML VIAL IVP SCH ×3 (08:20→20:58)
[2016-11-11] MEDS: CHLORHEXIDINE 0.12% 15 ML MOUTHWASH. MM SCH ×2 (08:20→20:58)
--- NOTE | 2016-11-11 08:24 | PDOC ---
PULMONARY PROGRESS NOTES Subjective on vent, more awake, no pain. mod ett secretion Vitals Vital Signs Date Time Temp Pulse Resp B/P (MAP) Pulse Ox O2 Delivery O2 Flow Rate FiO2 11/11/16 07:18 94 Ventilator 11/11/16 07:15 77 20 119/72 (88) 11/11/16 04:00 98.2 98.2 Comments ros discussed w rn, as mentioned as above, other sys otherwise neg HEENT: Other (nc at perrl, orally intubated, nose clear neck + jvd, no lap, no thyromegaly) Lungs: Crackles Cardiovascular: S1, S2 Abdomen: Soft, Non-tender, Other (no mass) Extremities: Other (edema) Skin: Warm Labs Laboratory Tests Test 11/09/16 08:31 11/09/16 17:09 11/09/16 17:45 11/09/16 23:41 Glucose (Fingerstick) 124 mg/dL (70-99) 122 mg/dL (70-99) 126 mg/dL (70-99) Clostridium difficile Toxin (PCR) Negative (Negative) Test 11/10/16 05:40 11/10/16 08:00 11/10/16 11:28 11/10/16 17:40 White Blood Count 18.4 x10^3/uL (4.0-11.0) Red Blood Count 2.74 x10^6/uL (3.50-5.40) Hemoglobin 7.8 g/dL (12.0-15.5) Hematocrit 24.8 % (36.0-47.0) Mean Corpuscular Volume 91 fL (79-100) Mean Corpuscular Hemoglobin 28 pg (25-35) Mean Corpuscular Hemoglobin Concent 31 g/dL (31-37) Red Cell Distribution Width 16.1 % (11.5-14.5) Platelet Count 436 x10^3/uL (140-400) Neutrophils (%) (Auto) 64 % (31-73) Lymphocytes (%) (Auto) 24 % (24-48) Monocytes (%) (Auto) 9 % (0-9) Eosinophils (%) (Auto) 3 % (0-3) Basophils (%) (Auto) 1 % (0-3) Neutrophils # (Auto) 11.7 x10^3uL (1.8-7.7) Lymphocytes # (Auto) 4.4 x10^3/uL (1.0-4.8) Monocytes # (Auto) 1.6 x10^3/uL (0.0-1.1) Eosinophils # (Auto) 0.5 x10^3/uL (0.0-0.7) Basophils # (Auto) 0.1 x10^3/uL (0.0-0.2) Sodium Level 142 mmol/L (136-145) Potassium Level 3.8 mmol/L (3.5-5.1) Chloride Level 105 mmol/L (98-107) Carbon Dioxide Level 30 mmol/L (21-32) Anion Gap 7 (6-14) Blood Urea Nitrogen 18 mg/dL (7-20) Creatinine 0.8 mg/dL (0.6-1.0) Estimated GFR (Cockcroft-Gault) 87.7 Glucose Level 126 mg/dL (70-99) Calcium Level 9.4 mg/dL (8.5-10.1) Phosphorus Level 4.0 mg/dL (2.6-4.7) Magnesium Level 2.1 mg/dL (1.8-2.4) Creatine Kinase 286 U/L (26-192) Albumin 2.0 g/dL (3.4-5.0) O2 Saturation 93 % (92-99) Arterial Blood pH 7.44 (7.35-7.45) Arterial Blood pCO2 at Patient Temp 41 mmHg (35-46) Arterial Blood pO2 at Patient Temp 71 mmHg (65-108) Arterial Blood HCO3 27 mmol/L (21-28) Arterial Blood Base Excess 3 mmol/L (-3-3) FiO2 40 Glucose (Fingerstick) 128 mg/dL (70-99) 164 mg/dL (70-99) Test 11/11/16 00:10 11/11/16 05:20 11/11/16 08:00 Glucose (Fingerstick) 181 mg/dL (70-99) White Blood Count 21.5 x10^3/uL (4.0-11.0) Red Blood Count 2.71 x10^6/uL (3.50-5.40) Hemoglobin 7.6 g/dL (12.0-15.5) Hematocrit 24.3 % (36.0-47.0) Mean Corpuscular Volume 90 fL (79-100) Mean Corpuscular Hemoglobin 28 pg (25-35) Mean Corpuscular Hemoglobin Concent 32 g/dL (31-37) Red Cell Distribution Width 15.8 % (11.5-14.5) Platelet Count 467 x10^3/uL (140-400) Neutrophils (%) (Auto) 83 % (31-73) Lymphocytes (%) (Auto) 13 % (24-48) Monocytes (%) (Auto) 4 % (0-9) Eosinophils (%) (Auto) 0 % (0-3) Basophils (%) (Auto) 0 % (0-3) Neutrophils # (Auto) 17.8 x10^3uL (1.8-7.7) Lymphocytes # (Auto) 2.8 x10^3/uL (1.0-4.8) Monocytes # (Auto) 0.9 x10^3/uL (0.0-1.1) Eosinophils # (Auto) 0.0 x10^3/uL (0.0-0.7) Basophils # (Auto) 0.1 x10^3/uL (0.0-0.2) Sodium Level 140 mmol/L (136-145) Potassium Level 4.8 mmol/L (3.5-5.1) Chloride Level 106 mmol/L (98-107) Carbon Dioxide Level 29 mmol/L (21-32) Anion Gap 5 (6-14) Blood Urea Nitrogen 19 mg/dL (7-20) Creatinine 0.8 mg/dL (0.6-1.0) Estimated GFR (Cockcroft-Gault) 87.7 Glucose Level 179 mg/dL (70-99) Calcium Level 8.9 mg/dL (8.5-10.1) Phosphorus Level 3.3 mg/dL (2.6-4.7) Creatine Kinase 249 U/L (26-192) Albumin 2.0 g/dL (3.4-5.0) O2 Saturation 88 % (92-99) Arterial Blood pH 7.44 (7.35-7.45) Arterial Blood pCO2 at Patient Temp 42 mmHg (35-46) Arterial Blood pO2 at Patient Temp 59 mmHg (65-108) Arterial Blood HCO3 28 mmol/L (21-28) Arterial Blood Base Excess 3 mmol/L (-3-3) FiO2 40 Laboratory Tests Test 11/10/16 11:28 11/10/16 17:40 11/11/16 00:10 11/11/16 05:20 Glucose (Fingerstick) 128 mg/dL (70-99) 164 mg/dL (70-99) 181 mg/dL (70-99) White Blood Count 21.5 x10^3/uL (4.0-11.0) Red Blood Count 2.71 x10^6/uL (3.50-5.40) Hemoglobin 7.6 g/dL (12.0-15.5) Hematocrit 24.3 % (36.0-47.0) Mean Corpuscular Volume 90 fL (79-100) Mean Corpuscular Hemoglobin 28 pg (25-35) Mean Corpuscular Hemoglobin Concent 32 g/dL (31-37) Red Cell Distribution Width 15.8 % (11.5-14.5) Platelet Count 467 x10^3/uL (140-400) Neutrophils (%) (Auto) 83 % (31-73) Lymphocytes (%) (Auto) 13 % (24-48) Monocytes (%) (Auto) 4 % (0-9) Eosinophils (%) (Auto) 0 % (0-3) Basophils (%) (Auto) 0 % (0-3) Neutrophils # (Auto) 17.8 x10^3uL (1.8-7.7) Lymphocytes # (Auto) 2.8 x10^3/uL (1.0-4.8) Monocytes # (Auto) 0.9 x10^3/uL (0.0-1.1) Eosinophils # (Auto) 0.0 x10^3/uL (0.0-0.7) Basophils # (Auto) 0.1 x10^3/uL (0.0-0.2) Sodium Level 140 mmol/L (136-145) Potassium Level 4.8 mmol/L (3.5-5.1) Chloride Level 106 mmol/L (98-107) Carbon Dioxide Level 29 mmol/L (21-32) Anion Gap 5 (6-14) Blood Urea Nitrogen 19 mg/dL (7-20) Creatinine 0.8 mg/dL (0.6-1.0) Estimated GFR (Cockcroft-Gault) 87.7 Glucose Level 179 mg/dL (70-99) Calcium Level 8.9 mg/dL (8.5-10.1) Phosphorus Level 3.3 mg/dL (2.6-4.7) Creatine Kinase 249 U/L (26-192) Albumin 2.0 g/dL (3.4-5.0) Test 11/11/16 08:00 O2 Saturation 88 % (92-99) Arterial Blood pH 7.44 (7.35-7.45) Arterial Blood pCO2 at Patient Temp 42 mmHg (35-46) Arterial Blood pO2 at Patient Temp 59 mmHg (65-108) Arterial Blood HCO3 28 mmol/L (21-28) Arterial Blood Base Excess 3 mmol/L (-3-3) FiO2 40 Medications Active Scripts Medications Dose Route/Sig Max Daily Dose Days Date Category Trazodone Hcl 100 Mg Tablet 100 Mg PO HS 10/31/16 Reported Polyethylene Glycol 3350 255 Gm Powder 17 Gm PO DAILY 10/31/16 Reported Olanzapine 20 Mg Tablet 2 Tab PO QHS 10/31/16 Reported Montelukast Sodium Tablet (Montelukast Sodium) 10 Mg Tablet 10 Mg PO HS 10/31/16 Reported Meloxicam 15 Mg Tablet 1 Tab PO DAILY 10/31/16 Reported Losartan Potassium 50 Mg Tablet 50 Mg PO DAILY 10/31/16 Reported Lorazepam 1 Mg Tablet 1 Mg PO HS 10/31/16 Reported Lasix (Furosemide) 40 Mg Tablet 40 Mg PO PRN DAILY 10/31/16 Reported Hydrochlorothiazide Tablet (Hydrochlorothiazide) 25 Mg Tablet 25 Mg PO DAILY 10/31/16 Reported Folic Acid 1 Mg Tablet 1 Mg PO DAILY 10/31/16 Reported Fluoxetine Hcl 40 Mg Capsule 40 Mg PO DAILY 10/31/16 Reported Famotidine 20 Mg Tablet 20 Mg PO BID 10/31/16 Reported Duoneb 0.5-3(2.5) Mg/3 Ml (Albuterol/Ipratropium) 3 Ml Ampul.neb 3 Ml NEB QID 10/31/16 Reported Docusate Sodium 100 Mg Capsule 1 Cap PO BID 10/31/16 Reported Clonidine Hcl 0.1 Mg Tablet 0.1 Mg PO QID 10/31/16 Reported Cetirizine Hcl 10 Mg Tablet 1 Tab PO DAILY 10/31/16 Reported Comments IMPRESSION: 1. Stable tube positions. 2. Slight interval worsening of the pulmonary infiltrates. Impression . A/C HYPERCAPNIA HYPOXEMIC RESP FAILURE MULTIFACTORIAL FAILED BIPAP INTUBATED ACUTE HEART FAILURE SUSPECT DIASTOLIC TALHA/OHS ACUTE RENAL FAILURE MORBID OBESITY FEVER POSSIBLE PNEUMONIA GRAM NEG/GRAM POS POSSIBLE SEPSIS/FEVER UTI KLEB s/p RHABDO LARYNGEAL EDEMA Plan . cont vent support, vent setting reviewed Cont steroid keep I<O, cxr worse? 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
--- NOTE | 2016-11-11 08:35 | RAD ---
Portable AP semiupright chest x-ray performed at 05 48 Clinical indications: Respiratory distress. Intubated. Follow-up study. Comparison: November 10, 2016. IMPRESSION: ET tube is unchanged in position and is 4 cm above the level of the rudy. Right upper extremity PICC line is unchanged in position. NG tube tip is not well seen in this study. A KUB may be helpful to determine position. Improvement of right lung base infiltrate or atelectasis is evident. There is persistent left perihilar lung infiltrate and left lung base consolidative infiltrate which are stable. Small left sided pleural effusion is stable. No pneumothorax is seen. The heart size and mediastinum are stable.
--- NOTE | 2016-11-11 09:09 | PDOC ---
PROGRESS NOTES Chief Complaint Chief Complaint Complaint: respiratory failure Assessment and plan Acute hypoxic and hypercapnic resp failure with HAP, Failed on bipap and on mechanical ventilation from 10/31/2016 Fever and leukocytosis: Better today, no fevers for hours KPNA urinary tract infection, present on admission Healthcare associated pneumonia possible gram-negative rods COPD morbid obesity Congestive heart failure , LV ejection fraction 65% Ckd with jerrod, vasomotor HX of schizophrenia HTN tobaccoism Elevated CPK, unclear etiology Hypernatremia hypophosphatemia moderate malnutrition ANASARCA History of Present Illness History of Present Illness Seen in ICU On the ff gtts: versed, fentanyl, IVF D5 at 100cc/hr to address the hypernatremia and TF at 55 cc/hr LOts of 3rd spacing protruding tongue - started on and scheduled benadryl on 11/10 [facility] consulted for trach -m scheduled for Sunday afternoon HYpernatremia resolved HG 7.8 stable low, s/p PRBC WBC 18 not on steroids, on IV antibiotics CXR: shows some pleural fluid, R PICC otherwise all else is stable CReat 0.8 Albumin 2.0 PLAN: CPM LAbs in AM BAsing on numbers and course, overall prognosis is poor Trach plans on sunday aftrenoon LAsix 60 IV x 1 MIght consider some albumin Renal also on case SO far full code consider Palliative Vitals Vitals Vital Signs Date Time Temp Pulse Resp B/P (MAP) Pulse Ox O2 Delivery O2 Flow Rate FiO2 11/11/16 07:18 94 Ventilator 11/11/16 07:15 77 20 119/72 (88) 11/11/16 04:00 98.2 98.2 Physical Exam Physical Exam intubated, sedated General: Other (sedated) Heart: Regular rate, Normal S1, Normal S2 Lungs: Crackles Abdomen: Soft, No tenderness Extremities: Other (edema) Skin: No significant lesion Labs LABS Laboratory Tests Test 11/10/16 11:28 11/10/16 17:40 11/11/16 00:10 11/11/16 05:20 Glucose (Fingerstick) 128 mg/dL (70-99) 164 mg/dL (70-99) 181 mg/dL (70-99) White Blood Count 21.5 x10^3/uL (4.0-11.0) Red Blood Count 2.71 x10^6/uL (3.50-5.40) Hemoglobin 7.6 g/dL (12.0-15.5) Hematocrit 24.3 % (36.0-47.0) Mean Corpuscular Volume 90 fL (79-100) Mean Corpuscular Hemoglobin 28 pg (25-35) Mean Corpuscular Hemoglobin Concent 32 g/dL (31-37) Red Cell Distribution Width 15.8 % (11.5-14.5) Platelet Count 467 x10^3/uL (140-400) Neutrophils (%) (Auto) 83 % (31-73) Lymphocytes (%) (Auto) 13 % (24-48) Monocytes (%) (Auto) 4 % (0-9) Eosinophils (%) (Auto) 0 % (0-3) Basophils (%) (Auto) 0 % (0-3) Neutrophils # (Auto) 17.8 x10^3uL (1.8-7.7) Lymphocytes # (Auto) 2.8 x10^3/uL (1.0-4.8) Monocytes # (Auto) 0.9 x10^3/uL (0.0-1.1) Eosinophils # (Auto) 0.0 x10^3/uL (0.0-0.7) Basophils # (Auto) 0.1 x10^3/uL (0.0-0.2) Sodium Level 140 mmol/L (136-145) Potassium Level 4.8 mmol/L (3.5-5.1) Chloride Level 106 mmol/L (98-107) Carbon Dioxide Level 29 mmol/L (21-32) Anion Gap 5 (6-14) Blood Urea Nitrogen 19 mg/dL (7-20) Creatinine 0.8 mg/dL (0.6-1.0) Estimated GFR (Cockcroft-Gault) 87.7 Glucose Level 179 mg/dL (70-99) Calcium Level 8.9 mg/dL (8.5-10.1) Phosphorus Level 3.3 mg/dL (2.6-4.7) Creatine Kinase 249 U/L (26-192) Albumin 2.0 g/dL (3.4-5.0) Test 11/11/16 08:00 O2 Saturation 88 % (92-99) Arterial Blood pH 7.44 (7.35-7.45) Arterial Blood pCO2 at Patient Temp 42 mmHg (35-46) Arterial Blood pO2 at Patient Temp 59 mmHg (65-108) Arterial Blood HCO3 28 mmol/L (21-28) Arterial Blood Base Excess 3 mmol/L (-3-3) FiO2 40 Assessment and Plan Assessmemt and Plan intubated,sedated Problems: Comment Review of Relevant I have reviewed the following items asif (where applicable) has been applied. Labs Laboratory Tests Test 11/09/16 17:09 11/09/16 17:45 11/09/16 23:41 11/10/16 05:40 Glucose (Fingerstick) 122 mg/dL (70-99) 126 mg/dL (70-99) Clostridium difficile Toxin (PCR) Negative (Negative) White Blood Count 18.4 x10^3/uL (4.0-11.0) Red Blood Count 2.74 x10^6/uL (3.50-5.40) Hemoglobin 7.8 g/dL (12.0-15.5) Hematocrit 24.8 % (36.0-47.0) Mean Corpuscular Volume 91 fL (79-100) Mean Corpuscular Hemoglobin 28 pg (25-35) Mean Corpuscular Hemoglobin Concent 31 g/dL (31-37) Red Cell Distribution Width 16.1 % (11.5-14.5) Platelet Count 436 x10^3/uL (140-400) Neutrophils (%) (Auto) 64 % (31-73) Lymphocytes (%) (Auto) 24 % (24-48) Monocytes (%) (Auto) 9 % (0-9) Eosinophils (%) (Auto) 3 % (0-3) Basophils (%) (Auto) 1 % (0-3) Neutrophils # (Auto) 11.7 x10^3uL (1.8-7.7) Lymphocytes # (Auto) 4.4 x10^3/uL (1.0-4.8) Monocytes # (Auto) 1.6 x10^3/uL (0.0-1.1) Eosinophils # (Auto) 0.5 x10^3/uL (0.0-0.7) Basophils # (Auto) 0.1 x10^3/uL (0.0-0.2) Sodium Level 142 mmol/L (136-145) Potassium Level 3.8 mmol/L (3.5-5.1) Chloride Level 105 mmol/L (98-107) Carbon Dioxide Level 30 mmol/L (21-32) Anion Gap 7 (6-14) Blood Urea Nitrogen 18 mg/dL (7-20) Creatinine 0.8 mg/dL (0.6-1.0) Estimated GFR (Cockcroft-Gault) 87.7 Glucose Level 126 mg/dL (70-99) Calcium Level 9.4 mg/dL (8.5-10.1) Phosphorus Level 4.0 mg/dL (2.6-4.7) Magnesium Level 2.1 mg/dL (1.8-2.4) Creatine Kinase 286 U/L (26-192) Albumin 2.0 g/dL (3.4-5.0) Test 11/10/16 08:00 11/10/16 11:28 11/10/16 17:40 11/11/16 00:10 O2 Saturation 93 % (92-99) Arterial Blood pH 7.44 (7.35-7.45) Arterial Blood pCO2 at Patient Temp 41 mmHg (35-46) Arterial Blood pO2 at Patient Temp 71 mmHg (65-108) Arterial Blood HCO3 27 mmol/L (21-28) Arterial Blood Base Excess 3 mmol/L (-3-3) FiO2 40 Glucose (Fingerstick) 128 mg/dL (70-99) 164 mg/dL (70-99) 181 mg/dL (70-99) Test 11/11/16 05:20 11/11/16 08:00 White Blood Count 21.5 x10^3/uL (4.0-11.0) Red Blood Count 2.71 x10^6/uL (3.50-5.40) Hemoglobin 7.6 g/dL (12.0-15.5) Hematocrit 24.3 % (36.0-47.0) Mean Corpuscular Volume 90 fL (79-100) Mean Corpuscular Hemoglobin 28 pg (25-35) Mean Corpuscular Hemoglobin Concent 32 g/dL (31-37) Red Cell Distribution Width 15.8 % (11.5-14.5) Platelet Count 467 x10^3/uL (140-400) Neutrophils (%) (Auto) 83 % (31-73) Lymphocytes (%) (Auto) 13 % (24-48) Monocytes (%) (Auto) 4 % (0-9) Eosinophils (%) (Auto) 0 % (0-3) Basophils (%) (Auto) 0 % (0-3) Neutrophils # (Auto) 17.8 x10^3uL (1.8-7.7) Lymphocytes # (Auto) 2.8 x10^3/uL (1.0-4.8) Monocytes # (Auto) 0.9 x10^3/uL (0.0-1.1) Eosinophils # (Auto) 0.0 x10^3/uL (0.0-0.7) Basophils # (Auto) 0.1 x10^3/uL (0.0-0.2) Sodium Level 140 mmol/L (136-145) Potassium Level 4.8 mmol/L (3.5-5.1) Chloride Level 106 mmol/L (98-107) Carbon Dioxide Level 29 mmol/L (21-32) Anion Gap 5 (6-14) Blood Urea Nitrogen 19 mg/dL (7-20) Creatinine 0.8 mg/dL (0.6-1.0) Estimated GFR (Cockcroft-Gault) 87.7 Glucose Level 179 mg/dL (70-99) Calcium Level 8.9 mg/dL (8.5-10.1) Phosphorus Level 3.3 mg/dL (2.6-4.7) Creatine Kinase 249 U/L (26-192) Albumin 2.0 g/dL (3.4-5.0) O2 Saturation 88 % (92-99) Arterial Blood pH 7.44 (7.35-7.45) Arterial Blood pCO2 at Patient Temp 42 mmHg (35-46) Arterial Blood pO2 at Patient Temp 59 mmHg (65-108) Arterial Blood HCO3 28 mmol/L (21-28) Arterial Blood Base Excess 3 mmol/L (-3-3) FiO2 40 Laboratory Tests Test 11/10/16 11:28 11/10/16 17:40 11/11/16 00:10 11/11/16 05:20 Glucose (Fingerstick) 128 mg/dL (70-99) 164 mg/dL (70-99) 181 mg/dL (70-99) White Blood Count 21.5 x10^3/uL (4.0-11.0) Red Blood Count 2.71 x10^6/uL (3.50-5.40) Hemoglobin 7.6 g/dL (12.0-15.5) Hematocrit 24.3 % (36.0-47.0) Mean Corpuscular Volume 90 fL (79-100) Mean Corpuscular Hemoglobin 28 pg (25-35) Mean Corpuscular Hemoglobin Concent 32 g/dL (31-37) Red Cell Distribution Width 15.8 % (11.5-14.5) Platelet Count 467 x10^3/uL (140-400) Neutrophils (%) (Auto) 83 % (31-73) Lymphocytes (%) (Auto) 13 % (24-48) Monocytes (%) (Auto) 4 % (0-9) Eosinophils (%) (Auto) 0 % (0-3) Basophils (%) (Auto) 0 % (0-3) Neutrophils # (Auto) 17.8 x10^3uL (1.8-7.7) Lymphocytes # (Auto) 2.8 x10^3/uL (1.0-4.8) Monocytes # (Auto) 0.9 x10^3/uL (0.0-1.1) Eosinophils # (Auto) 0.0 x10^3/uL (0.0-0.7) Basophils # (Auto) 0.1 x10^3/uL (0.0-0.2) Sodium Level 140 mmol/L (136-145) Potassium Level 4.8 mmol/L (3.5-5.1) Chloride Level 106 mmol/L (98-107) Carbon Dioxide Level 29 mmol/L (21-32) Anion Gap 5 (6-14) Blood Urea Nitrogen 19 mg/dL (7-20) Creatinine 0.8 mg/dL (0.6-1.0) Estimated GFR (Cockcroft-Gault) 87.7 Glucose Level 179 mg/dL (70-99) Calcium Level 8.9 mg/dL (8.5-10.1) Phosphorus Level 3.3 mg/dL (2.6-4.7) Creatine Kinase 249 U/L (26-192) Albumin 2.0 g/dL (3.4-5.0) Test 11/11/16 08:00 O2 Saturation 88 % (92-99) Arterial Blood pH 7.44 (7.35-7.45) Arterial Blood pCO2 at Patient Temp 42 mmHg (35-46) Arterial Blood pO2 at Patient Temp 59 mmHg (65-108) Arterial Blood HCO3 28 mmol/L (21-28) Arterial Blood Base Excess 3 mmol/L (-3-3) FiO2 40 Microbiology 11/02/16 Blood Culture - Final, Complete NO GROWTH AFTER 5 DAYS 11/01/16 Sputum Culture - Final, Complete 11/01/16 Sputum Result 1 - Final, Complete 10/31/16 Urine Culture - Final, Complete 10/31/16 Urine Culture Result 1 (ISAIAS) - Final, Complete 10/31/16 Antimicrobic Susceptibility - Final, Complete Medications Current Medications Methylprednisolone Sodium Succinate (SOLU-Medrol 125MG VIAL) 125 mg 1X ONCE IV Last administered on 10/31/16 11:18; Start 10/31/16 at 11:00; Stop 10/31/16 at 11:01; Status DC Albuterol/ Ipratropium (Duoneb) 3 ml 1X ONCE NEB Last administered on 11:00; Start 10/31/16 at 11:00; Stop 10/31/16 at 11:01; Status DC Furosemide (Lasix) 40 mg 1X ONCE IVP Last administered on 10/31/16 11:17; Start 10/31/16 at 11:15; Stop 10/31/16 at 11:16; Status DC Vancomycin HCl (Vanco Per Pharmacy) 1 each PRN DAILY PRN MC SEE COMMENTS Last administered on 11/06/16 10:19; Start 10/31/16 at 11:30; Stop 11/06/16 at 14:40 ; Status DC Piperacillin Sod/ Tazobactam Sod (Zosyn Per Pharmacy) 1 each PRN DAILY PRN MC SEE COMMENTS; Start 10/31/16 at 11:30; Stop 11/02/16 at 08:44; Status DC Levofloxacin/ Dextrose (Levaquin Per Pharmacy) 1 each PRN DAILY PRN MC SEE COMMENTS; Start 10/31/16 at 11:30; Stop 10/31/16 at 12:57; Status DC Vancomycin HCl 2 gm/Sodium Chloride 500 ml @ 250 mls/hr 1X ONCE IV Last administered on 10/31/16 14:30; Start 10/31/16 at 11:30; Stop 10/31/16 at 13:29 ; Status DC Levofloxacin/ Dextrose 150 ml @ 100 mls/hr ONCE ONCE IV Last administered on 10/31/16 12:45; Start 10/31/16 at 11:30; Stop 10/31/16 at 12:59; Status DC Piperacillin Sod/ Tazobactam Sod 3.375 gm/Sodium Chloride 50 ml @ 100 mls/hr ONCE ONCE IV Last administered on 10/31/16 11:38; Start 10/31/16 at 11:45; Stop 10/31/16 at 12:14; Status DC Levofloxacin/ Dextrose 150 ml @ 100 mls/hr Q48H IV Last administered on 10:54; Start 11/02/16 at 10:00; Stop 11/05/16 at 09:18; Status DC Piperacillin Sod/ Tazobactam Sod 3.375 gm/Sodium Chloride 50 ml @ 100 mls/hr Q6HRS IV Last administered on 11/02/16 05:44; Start 10/31/16 at 18:00; Stop at 08:47; Status DC Acetaminophen (Tylenol) 650 mg PRN Q6HRS PRN PO FEVER Last administered on 11/01 20:26; Start 10/31/16 at 15:15; Stop 11/02/16 at 07:45; Status DC Ondansetron HCl (Zofran) 4 mg PRN Q6HRS PRN IV NAUSEA/VOMITING; Start 10/31/16 at 15:15 Morphine Sulfate 2 mg PRN Q2HR PRN IV PAIN Last administered on 11/08/16 06:16 ; Start 10/31/16 at 15:15 Tramadol HCl (Ultram) 50 mg PRN Q6HRS PRN PO PAIN; Start 10/31/16 at 15:15 Hydralazine HCl (Apresoline) 10 mg PRN Q4HRS PRN IVP ELEVATED BP, SEE COMMENTS Last administered on 11/08/16 05:13; Start 10/31/16 at 15:15 Docusate Sodium (Colace) 100 mg PRN DAILY PRN PO CONSTIPATION Last administered on 11/05/16 12:04; Start 10/31/16 at 15:15 Albuterol/ Ipratropium (Duoneb) 3 ml RTQID NEB Last administered on 11/11/16 07:18; Start 10/31/16 at 16:00 Albuterol Sulfate (Ventolin Neb Soln) 2.5 mg PRN Q4HRS PRN NEB SHORTNESS OF BREATH; Start 10/31/16 at 15:15 Heparin Sodium (Porcine) (Heparin Sq) 5,000 unit Q8HRS SQ Last administered on 11/11/16 05:22; Start 10/31/16 at 22:00 Famotidine (Pepcid) 20 mg QHS IVP Last administered on 11/10/16 21:13; Start 10/31/16 at 21:00 Vancomycin HCl 2 gm/Sodium Chloride 500 ml @ 250 mls/hr Q24H IV Last administered on 11/02/16 14:14; Start 11/01/16 at 14:00; Stop 11/02/16 at 14:24 ; Status DC Vancomycin HCl 1 each 1X ONCE MC Last administered on 11/02/16 13:30; Start 11/02/16 at 13:30; Stop 11/02/16 at 13:31; Status DC Sodium Chloride 1,000 ml @ 80 mls/hr [id number] IV Last administered on 08:27; Start 10/31/16 at 16:15; Stop 11/05/16 at 08:31; Status DC Sodium Chloride 1,000 ml @ 1,000 mls/hr 1X ONCE IV Last administered on 18:04; Start 10/31/16 at 14:00; Stop 10/31/16 at 17:23; Status DC Sodium Chloride 500 ml @ 500 mls/hr 1X ONCE IV Last administered on 17:30; Start 10/31/16 at 17:30; Stop 10/31/16 at 18:29; Status DC Fentanyl Citrate 30 ml @ 0 mls/hr CONT PRN IV PROTOCOL Last administered on 03:14; Start 10/31/16 at 18:30 Propofol 100 ml @ 0 mls/hr CONT PRN IV PER PROTOCOL Last administered on 19:00; Start 10/31/16 at 18:30 Chlorhexidine Gluconate (Peridex) 15 ml BID MM Last administered on 11/11/16 08:20; Start 10/31/16 at 21:00 Artificial Tears (Artificial Tears) 1 drop PRN Q1HR PRN OU DRY EYE; Start 10/31 at 18:30 Midazolam HCl 100 ml @ 0 mls/hr CONT PRN IV PER PROTOCOL Last administered on 23:15; Start 10/31/16 at 18:30 Succinylcholine Chloride (Anectine) 200 mg STK-MED ONCE .ROUTE ; Start 10/31/16 at 18:43; Stop 10/31/16 at 18:44; Status DC Midazolam HCl (Versed) 5 mg STK-MED ONCE .ROUTE ; Start 10/31/16 at 18:45; Stop 10/31/16 at 18:46; Status DC Midazolam HCl (Versed) 5 mg 1X ONCE IV Last administered on 10/31/16 19:30; Start 10/31/16 at 19:30; Stop 10/31/16 at 19:31; Status DC Succinylcholine Chloride (Anectine) 200 mg STK-MED ONCE .ROUTE ; Start 10/31/16 at 18:45; Stop 11/01/16 at 08:13; Status DC Furosemide (Lasix) 20 mg 1X ONCE IVP Last administered on 11/01/16 13:48; Start 11/01/16 at 13:30; Stop 11/01/16 at 13:31; Status DC Sodium Chloride 500 ml @ 500 mls/hr 1X ONCE IV Last administered on 23:09; Start 11/01/16 at 23:15; Stop 11/02/16 at 00:14; Status DC Acetaminophen (Tylenol) 650 mg PRN Q6HRS PRN PEG MILD PAIN / TEMP Last administered on 11/05/16 16:39; Start 11/02/16 at 07:45 Piperacillin Sod/ Tazobactam Sod 4.5 gm/Sodium Chloride 100 ml @ 200 mls/hr Q6HRS IV Last administered on 11/11/16 05:21; Start 11/02/16 at 12:00 Sodium Chloride 500 ml @ 500 mls/hr 1X ONCE IV Last administered on 14:10; Start 11/02/16 at 13:00; Stop 11/02/16 at 13:59; Status DC Sodium Chloride 1,000 ml @ 75 mls/hr [id number] IV ; Start 11/02/16 at 13:00; Stop 11/02/16 at 13:25; Status DC Vancomycin HCl 1.75 gm/Sodium Chloride 500 ml @ 250 mls/hr Q18H IV Last administered on 11/06/16 09:13; Start 11/03/16 at 08:00; Stop 11/06/16 at 14:39 ; Status DC Vancomycin HCl 1 each 1X ONCE MC Last administered on 11/04/16 19:30; Start 11/04/16 at 19:30; Stop 11/04/16 at 19:31; Status DC Metoclopramide HCl (Reglan) 10 mg 1X ONCE IV Last administered on 11/03/16 16 :35; Start 11/03/16 at 15:45; Stop 11/03/16 at 15:46; Status DC Furosemide (Lasix) 20 mg 1X ONCE IVP Last administered on 11/04/16 10:54; Start 11/04/16 at 10:30; Stop 11/04/16 at 10:31; Status DC Metoclopramide HCl (Reglan) 10 mg 1X ONCE IV Last administered on 11/04/16 17 :15; Start 11/04/16 at 17:15; Stop 11/04/16 at 17:16; Status DC Magnesium Sulfate/ Dextrose 50 ml @ 25 mls/hr PRN DAILY PRN IV for Mag < 1.7 on am labs; Start 11/05/16 at 08:15 Hydrochlorothiazide (Hydrodiuril) 25 mg DAILY PO Last administered on 12:04; Start 11/05/16 at 09:00; Stop 11/06/16 at 11:08; Status DC Levofloxacin/ Dextrose 150 ml @ 100 mls/hr Q24H IV Last administered on 10:00; Start 11/05/16 at 10:00; Stop 11/06/16 at 14:39; Status DC Sodium Chloride 1,000 ml @ 75 mls/hr [id number] IV Last administered on 04:54; Start 11/05/16 at 15:45; Stop 11/06/16 at 09:26; Status DC Sodium Chloride 1,000 ml @ 75 mls/hr [id number] IV Last administered on 09:38; Start 11/06/16 at 09:30; Stop 11/07/16 at 07:37; Status DC Furosemide (Lasix) 20 mg 1X ONCE IVP Last administered on 11/06/16 09:38; Start 11/06/16 at 09:30; Stop 11/06/16 at 09:31; Status DC Potassium Phosphate 10 mmol/ Sodium Chloride 103.3333 ml @ 51.667 m... Q2H IV Last administered on 11/06/16 20:16; Start 11/06/16 at 13:30; Stop 11/06/16 at 17:29; Status DC Dextrose 1,000 ml @ 50 mls/hr Q20H IV Last administered on 11/07/16 09:40; Start 11/07/16 at 09:15; Stop 11/07/16 at 12:31; Status DC Dextrose 1,000 ml @ 100 mls/hr Q10H IV Last administered on 11/09/16 08:20; Start 11/07/16 at 19:30; Stop 11/09/16 at 14:39; Status DC Furosemide (Lasix) 20 mg 1X ONCE IVP Last administered on 11/08/16 09:17; Start 11/08/16 at 09:30; Stop 11/08/16 at 09:31; Status DC Saliva Substitute (Biotene Moisturizing Mouth) 2 spray PRN Q15MIN PRN PO DRY MOUTH; Start 11/08/16 at 17:30 Cetirizine HCl (ZyrTEC) 10 mg DAILY PO Last administered on 11/11/16 08:20; Start 11/10/16 at 09:00 Diphenhydramine HCl (Benadryl) 25 mg PRN Q6HRS PRN IVP ITCHING Last administered on 11/10/16 05:50; Start 11/09/16 at 10:30; Stop 11/10/16 at 14:00 ; Status DC Linezolid 300 ml @ 300 mls/hr Q12HR IV Last administered on 11/11/16 08:20; Start 11/10/16 at 10:00 Diphenhydramine HCl (Benadryl) 50 mg TID IVP Last administered on 11/11/16 08: 20; Start 11/10/16 at 14:00 Methylprednisolone Sodium Succinate (SOLU-Medrol 40MG VIAL) 40 mg Q12HR IV Last administered on 11/11/16 08:20; Start 11/10/16 at 11:00 Furosemide (Lasix) 60 mg 1X ONCE IVP ; Start 11/11/16 at 09:15; Stop 11/11/16 at 09:16; Status UNV Active Scripts Active Reported Trazodone Hcl 100 Mg Tablet 100 Mg PO HS Polyethylene Glycol 3350 255 Gm Powder 17 Gm PO DAILY Olanzapine 20 Mg Tablet 2 Tab PO QHS Montelukast Sodium Tablet (Montelukast Sodium) 10 Mg Tablet 10 Mg PO HS Meloxicam 15 Mg Tablet 1 Tab PO DAILY Losartan Potassium 50 Mg Tablet 50 Mg PO DAILY Lorazepam 1 Mg Tablet 1 Mg PO HS Lasix (Furosemide) 40 Mg Tablet 40 Mg PO PRN DAILY Hydrochlorothiazide Tablet (Hydrochlorothiazide) 25 Mg Tablet 25 Mg PO DAILY Folic Acid 1 Mg Tablet 1 Mg PO DAILY Fluoxetine Hcl 40 Mg Capsule 40 Mg PO DAILY Famotidine 20 Mg Tablet 20 Mg PO BID Duoneb 0.5-3(2.5) Mg/3 Ml (Albuterol/Ipratropium) 3 Ml Ampul.neb 3 Ml NEB QID Docusate Sodium 100 Mg Capsule 1 Cap PO BID Clonidine Hcl 0.1 Mg Tablet 0.1 Mg PO QID Cetirizine Hcl 10 Mg Tablet 1 Tab PO DAILY Vitals/I & O Vital Sign - Last 24 Hours 11/10/16 11/10/16 11/10/16 11/10/16 09:30 10:00 11:00 12:00 Temp 98.9 98.9 Pulse 101 98 107 Resp 20 26 B/P (MAP) 111/71 (84) 140/81 (100) 132/74 (93) Pulse Ox 98 98 97 100 O2 Delivery Ventilator Ventilator Ventilator Ventilator 11/10/16 11/10/16 11/10/16 11/10/16 12:00 12:32 13:00 14:00 Pulse 97 101 Resp 26 26 B/P (MAP) 127/70 (89) 145/81 (102) Pulse Ox 98 95 94 O2 Delivery Mechanical Ventilator Ventilator Ventilator Ventilator 11/10/16 11/10/16 11/10/16 11/10/16 14:10 15:00 15:40 16:00 Pulse 106 Resp 25 B/P (MAP) 163/68 (99) Pulse Ox 96 95 96 O2 Delivery Ventilator Ventilator Mechanical Ventilator 11/10/16 11/10/16 11/10/16 11/10/16 16:00 16:44 17:00 17:15 Temp 99.4 99.4 Pulse 108 105 Resp 20 20 26 B/P (MAP) 152/74 (100) 151/81 (104) Pulse Ox 96 94 98 97 O2 Delivery Ventilator Ventilator Ventilator Ventilator 11/10/16 11/10/16 11/10/16 11/10/16 17:56 18:00 19:00 19:39 Pulse 99 93 Resp 20 20 B/P (MAP) 142/77 (98) 128/78 (95) Pulse Ox 94 94 95 96 O2 Delivery Ventilator Ventilator Ventilator Ventilator 11/10/16 11/10/16 11/10/16 11/10/16 20:00 20:00 21:00 22:00 Temp 98.2 98.2 Pulse 98 109 109 Resp 19 26 B/P (MAP) 137/75 (95) 137/75 (95) 145/73 (97) Pulse Ox 94 97 96 O2 Delivery Mechanical Ventilator Ventilator Ventilator Ventilator 11/10/16 11/10/16 11/10/16 11/11/16 23:00 23:26 23:59 00:00 Temp 98.5 98.5 Pulse 102 91 Resp 24 20 B/P (MAP) 149/81 (103) 131/74 (93) Pulse Ox 98 96 95 O2 Delivery Ventilator Ventilator Mechanical Ventilator Ventilator 11/11/16 11/11/16 11/11/16 11/11/16 01:00 01:45 02:00 03:00 Pulse 84 77 92 Resp 19 20 19 B/P (MAP) 136/80 (98) 137/80 (99) 165/97 (119) Pulse Ox 95 95 95 93 O2 Delivery Ventilator Ventilator Ventilator Ventilator 11/11/16 11/11/16 11/11/16 11/11/16 03:14 03:40 03:44 04:00 Resp 22 19 Pulse Ox 95 O2 Delivery Ventilator Mechanical Ventilator 11/11/16 11/11/16 11/11/16 11/11/16 04:00 05:00 05:35 06:00 Temp 98.2 98.2 Pulse 82 79 80 Resp 20 20 19 B/P (MAP) 143/86 (105) 145/85 (105) 143/83 (103) Pulse Ox 93 94 94 94 O2 Delivery Ventilator Ventilator Ventilator Ventilator 11/11/16 11/11/16 07:15 07:18 Pulse 77 Resp 20 B/P (MAP) 119/72 (88) Pulse Ox 94 94 O2 Delivery Ventilator Ventilator Intake and Output 11/10/16 11/10/16 11/11/16 15:00 23:00 07:00 Intake Total 1340 ml 1214.4 ml 1858.5 ml Output Total 965 ml 1325 ml 800 ml Balance 375 ml -110.6 ml 1058.5 ml RENÉ RAMIREZ MD Nov 11, 2016 09:09
--- NOTE | 2016-11-11 09:10 | PDOC ---
Infectious Disease Note Subjective Subjective Remains intubated. 40% FiO2 Tube feedings No fever last 24 hours Vital Sign Vital Signs Vital Signs Date Time Temp Pulse Resp B/P (MAP) Pulse Ox O2 Delivery O2 Flow Rate FiO2 11/11/16 07:18 94 Ventilator 11/11/16 07:15 77 20 119/72 (88) 11/11/16 04:00 98.2 98.2 Physical Exam PHYSICAL EXAM GENERAL: more awake, tracking, intubated, mittens HEENT: OGT, ETT LUNGS: Clear anteriorly HEART: S1S2 regular ABD: Obese, hypoactive BS, soft : [place] EXT: Generalized swelling SKIN: No rash RUE-PICC.(11/04). clean Labs Lab Laboratory Tests Test 11/10/16 11:28 11/10/16 17:40 11/11/16 00:10 11/11/16 05:20 Glucose (Fingerstick) 128 mg/dL (70-99) 164 mg/dL (70-99) 181 mg/dL (70-99) White Blood Count 21.5 x10^3/uL (4.0-11.0) Red Blood Count 2.71 x10^6/uL (3.50-5.40) Hemoglobin 7.6 g/dL (12.0-15.5) Hematocrit 24.3 % (36.0-47.0) Mean Corpuscular Volume 90 fL (79-100) Mean Corpuscular Hemoglobin 28 pg (25-35) Mean Corpuscular Hemoglobin Concent 32 g/dL (31-37) Red Cell Distribution Width 15.8 % (11.5-14.5) Platelet Count 467 x10^3/uL (140-400) Neutrophils (%) (Auto) 83 % (31-73) Lymphocytes (%) (Auto) 13 % (24-48) Monocytes (%) (Auto) 4 % (0-9) Eosinophils (%) (Auto) 0 % (0-3) Basophils (%) (Auto) 0 % (0-3) Neutrophils # (Auto) 17.8 x10^3uL (1.8-7.7) Lymphocytes # (Auto) 2.8 x10^3/uL (1.0-4.8) Monocytes # (Auto) 0.9 x10^3/uL (0.0-1.1) Eosinophils # (Auto) 0.0 x10^3/uL (0.0-0.7) Basophils # (Auto) 0.1 x10^3/uL (0.0-0.2) Sodium Level 140 mmol/L (136-145) Potassium Level 4.8 mmol/L (3.5-5.1) Chloride Level 106 mmol/L (98-107) Carbon Dioxide Level 29 mmol/L (21-32) Anion Gap 5 (6-14) Blood Urea Nitrogen 19 mg/dL (7-20) Creatinine 0.8 mg/dL (0.6-1.0) Estimated GFR (Cockcroft-Gault) 87.7 Glucose Level 179 mg/dL (70-99) Calcium Level 8.9 mg/dL (8.5-10.1) Phosphorus Level 3.3 mg/dL (2.6-4.7) Creatine Kinase 249 U/L (26-192) Albumin 2.0 g/dL (3.4-5.0) Test 11/11/16 08:00 O2 Saturation 88 % (92-99) Arterial Blood pH 7.44 (7.35-7.45) Arterial Blood pCO2 at Patient Temp 42 mmHg (35-46) Arterial Blood pO2 at Patient Temp 59 mmHg (65-108) Arterial Blood HCO3 28 mmol/L (21-28) Arterial Blood Base Excess 3 mmol/L (-3-3) FiO2 40 PORTABLE CHEST 1V Comparison: November 10, 2016. IMPRESSION: ET tube is unchanged in position and is 4 cm above the level of the rudy. Right upper extremity PICC line is unchanged in position. NG tube tip is not well seen in this study. A KUB may be helpful to determine position. Improvement of right lung base infiltrate or atelectasis is evident. There is persistent left perihilar lung infiltrate and left lung base consolidative infiltrate which are stable. Small left sided pleural effusion is stable. No pneumothorax is seen. The heart size and mediastinum are stable. Objective Assessment Klebsiella UTI, POA Fever, better Leukocytosis, possibly reactive, c.diff negative Respiratory failure Ángel pulmonary infiltrate, CHF vs pneumonia Acute renal failure, improving Rhabdomyolysis, CK trending down Schizophrenia Plan Plan of Care Zosyn and Zyvox on steroids Monitor labs Await trach Attending Co-Sign The patient was seen and interviewed as well as examined at the bedside. The chart was reviewed. The case was discussed. Agree with the plan of care. DAVE HERNANDEZ APRN Nov 11, 2016 09:10 CAITY SMITH MD Nov 11, 2016 11:33
[2016-11-11] MEDS ORDERED: FUROSEMIDE 100 MG/10 ML VIAL. IVP ONE (09:30)
[2016-11-11] MEDS: MIDAZOLAM PREMIX 100 ML IV PRN ×2 (10:26→20:27)
[2016-11-11] MEDS: FAMOTIDINE 20 MG/2 ML VIAL IVP SCH (20:59)
[2016-11-12] VITALS (24 sets, daily range): BP systolic 128–179; BP diastolic 70–101
[2016-11-12] MEDS: MIDAZOLAM PREMIX 100 ML IV PRN ×3 (04:14→21:23)
[2016-11-12 05:09] LABS: INR 1.1 (0.8-1.1); PROTHROMBIN TIME PATIENT 13.8 SEC (11.7-14.0)
[2016-11-12] MEDS: PIPERACILLIN/TAZOBACTAM 4.5 GM in IV NORMAL SALINE 100ML 100 ML IV SCH ×5 (05:29→17:38)
[2016-11-12 05:32] LABS: ALBUMIN 2.2 g/dL (3.4-5.0); CALCIUM 9.4 mg/dL (8.5-10.1); CREATININE 0.8 mg/dL (0.6-1.0); GFR 87.7; PHOSPHORUS 2.8 mg/dL (2.6-4.7); POTASSIUM 4.3 mmol/L (3.5-5.1)
[2016-11-12] MEDS: HEPARIN PF for SUB-Q USE 5,000 UNIT/0.5 ML VIAL. SQ SCH ×2 (05:34→17:39)
[2016-11-12] MEDS: CHLORHEXIDINE 0.12% 15 ML MOUTHWASH. MM SCH ×2 (06:57→21:22)
[2016-11-12] MEDS: IPRATRPIUM/ALBUTEROL 0.5/2.5MG 3 ML NEBU. NEB SCH ×4 (07:22→19:26)
--- NOTE | 2016-11-12 08:07 | PDOC ---
PULMONARY PROGRESS NOTES Subjective on vent, more awake, no pain. small ett secretion, less edematous Vitals Vital Signs Date Time Temp Pulse Resp B/P (MAP) Pulse Ox O2 Delivery O2 Flow Rate FiO2 11/12/16 07:22 95 Ventilator 11/12/16 07:00 91 20 147/81 (103) 11/12/16 04:00 98.3 98.3 Comments ros discussed w rn, as mentioned as above, other sys otherwise neg HEENT: Other (nc at perrl, orally intubated, nose clear neck + jvd, no lap, no thyromegaly) Lungs: Crackles Cardiovascular: S1, S2 Abdomen: Soft, Non-tender, Other (no mass) Extremities: Other (edema) Skin: Warm Labs Laboratory Tests Test 11/10/16 11:28 11/10/16 17:40 11/11/16 00:10 11/11/16 05:20 Glucose (Fingerstick) 128 mg/dL (70-99) 164 mg/dL (70-99) 181 mg/dL (70-99) White Blood Count 21.5 x10^3/uL (4.0-11.0) Red Blood Count 2.71 x10^6/uL (3.50-5.40) Hemoglobin 7.6 g/dL (12.0-15.5) Hematocrit 24.3 % (36.0-47.0) Mean Corpuscular Volume 90 fL (79-100) Mean Corpuscular Hemoglobin 28 pg (25-35) Mean Corpuscular Hemoglobin Concent 32 g/dL (31-37) Red Cell Distribution Width 15.8 % (11.5-14.5) Platelet Count 467 x10^3/uL (140-400) Neutrophils (%) (Auto) 83 % (31-73) Lymphocytes (%) (Auto) 13 % (24-48) Monocytes (%) (Auto) 4 % (0-9) Eosinophils (%) (Auto) 0 % (0-3) Basophils (%) (Auto) 0 % (0-3) Neutrophils # (Auto) 17.8 x10^3uL (1.8-7.7) Lymphocytes # (Auto) 2.8 x10^3/uL (1.0-4.8) Monocytes # (Auto) 0.9 x10^3/uL (0.0-1.1) Eosinophils # (Auto) 0.0 x10^3/uL (0.0-0.7) Basophils # (Auto) 0.1 x10^3/uL (0.0-0.2) Sodium Level 140 mmol/L (136-145) Potassium Level 4.8 mmol/L (3.5-5.1) Chloride Level 106 mmol/L (98-107) Carbon Dioxide Level 29 mmol/L (21-32) Anion Gap 5 (6-14) Blood Urea Nitrogen 19 mg/dL (7-20) Creatinine 0.8 mg/dL (0.6-1.0) Estimated GFR (Cockcroft-Gault) 87.7 Glucose Level 179 mg/dL (70-99) Calcium Level 8.9 mg/dL (8.5-10.1) Phosphorus Level 3.3 mg/dL (2.6-4.7) Creatine Kinase 249 U/L (26-192) Albumin 2.0 g/dL (3.4-5.0) Test 11/11/16 08:00 11/11/16 23:58 11/12/16 04:00 O2 Saturation 88 % (92-99) Arterial Blood pH 7.44 (7.35-7.45) Arterial Blood pCO2 at Patient Temp 42 mmHg (35-46) Arterial Blood pO2 at Patient Temp 59 mmHg (65-108) Arterial Blood HCO3 28 mmol/L (21-28) Arterial Blood Base Excess 3 mmol/L (-3-3) FiO2 40 Glucose (Fingerstick) 163 mg/dL (70-99) Prothrombin Time 13.8 SEC (11.7-14.0) Prothromb Time International Ratio 1.1 (0.8-1.1) Activated Partial Thromboplast Time 28 SEC (24-38) Sodium Level 140 mmol/L (136-145) Potassium Level 4.3 mmol/L (3.5-5.1) Chloride Level 103 mmol/L (98-107) Carbon Dioxide Level 29 mmol/L (21-32) Anion Gap 8 (6-14) Blood Urea Nitrogen 21 mg/dL (7-20) Creatinine 0.8 mg/dL (0.6-1.0) Estimated GFR (Cockcroft-Gault) 87.7 Glucose Level 173 mg/dL (70-99) Calcium Level 9.4 mg/dL (8.5-10.1) Phosphorus Level 2.8 mg/dL (2.6-4.7) Creatine Kinase 186 U/L (26-192) Albumin 2.2 g/dL (3.4-5.0) Laboratory Tests Test 11/11/16 23:58 11/12/16 04:00 Glucose (Fingerstick) 163 mg/dL (70-99) Prothrombin Time 13.8 SEC (11.7-14.0) Prothromb Time International Ratio 1.1 (0.8-1.1) Activated Partial Thromboplast Time 28 SEC (24-38) Sodium Level 140 mmol/L (136-145) Potassium Level 4.3 mmol/L (3.5-5.1) Chloride Level 103 mmol/L (98-107) Carbon Dioxide Level 29 mmol/L (21-32) Anion Gap 8 (6-14) Blood Urea Nitrogen 21 mg/dL (7-20) Creatinine 0.8 mg/dL (0.6-1.0) Estimated GFR (Cockcroft-Gault) 87.7 Glucose Level 173 mg/dL (70-99) Calcium Level 9.4 mg/dL (8.5-10.1) Phosphorus Level 2.8 mg/dL (2.6-4.7) Creatine Kinase 186 U/L (26-192) Albumin 2.2 g/dL (3.4-5.0) Medications Active Scripts Medications Dose Route/Sig Max Daily Dose Days Date Category Trazodone Hcl 100 Mg Tablet 100 Mg PO HS 10/31/16 Reported Polyethylene Glycol 3350 255 Gm Powder 17 Gm PO DAILY 10/31/16 Reported Olanzapine 20 Mg Tablet 2 Tab PO QHS 10/31/16 Reported Montelukast Sodium Tablet (Montelukast Sodium) 10 Mg Tablet 10 Mg PO HS 10/31/16 Reported Meloxicam 15 Mg Tablet 1 Tab PO DAILY 10/31/16 Reported Losartan Potassium 50 Mg Tablet 50 Mg PO DAILY 10/31/16 Reported Lorazepam 1 Mg Tablet 1 Mg PO HS 10/31/16 Reported Lasix (Furosemide) 40 Mg Tablet 40 Mg PO PRN DAILY 10/31/16 Reported Hydrochlorothiazide Tablet (Hydrochlorothiazide) 25 Mg Tablet 25 Mg PO DAILY 10/31/16 Reported Folic Acid 1 Mg Tablet 1 Mg PO DAILY 10/31/16 Reported Fluoxetine Hcl 40 Mg Capsule 40 Mg PO DAILY 10/31/16 Reported Famotidine 20 Mg Tablet 20 Mg PO BID 10/31/16 Reported Duoneb 0.5-3(2.5) Mg/3 Ml (Albuterol/Ipratropium) 3 Ml Ampul.neb 3 Ml NEB QID 10/31/16 Reported Docusate Sodium 100 Mg Capsule 1 Cap PO BID 10/31/16 Reported Clonidine Hcl 0.1 Mg Tablet 0.1 Mg PO QID 10/31/16 Reported Cetirizine Hcl 10 Mg Tablet 1 Tab PO DAILY 10/31/16 Reported Comments IMPRESSION: b lat infilt, ett too high Impression . A/C HYPERCAPNIA HYPOXEMIC RESP FAILURE MULTIFACTORIAL FAILED BIPAP INTUBATED ACUTE HEART FAILURE SUSPECT DIASTOLIC TALHA/OHS ACUTE RENAL FAILURE MORBID OBESITY FEVER POSSIBLE PNEUMONIA GRAM NEG/GRAM POS POSSIBLE SEPSIS/FEVER UTI KLEB s/p RHABDO LARYNGEAL EDEMA Plan . cont vent support, vent setting reviewed, trach on sunday change solumedrol to prednisone advance ett keep I<O, trina portillo, cr SURGEON CONSULTED WILL CONTINUE SUPPORT FOLLOW NEPHRO INPUT ANTIBX PER ID DVT AND GI PROPH NUTRITION PER TF discussed w rn, rt MONICA AMES MD Nov 12, 2016 08:07
--- NOTE | 2016-11-12 08:14 | PDOC ---
Infectious Disease Note Subjective Subjective Remains intubated. 40% FiO2 Tube feedings No fever Vital Sign Vital Signs Vital Signs Date Time Temp Pulse Resp B/P (MAP) Pulse Ox O2 Delivery O2 Flow Rate FiO2 11/12/16 07:22 95 Ventilator 11/12/16 07:00 91 20 147/81 (103) 11/12/16 04:00 98.3 98.3 Physical Exam PHYSICAL EXAM GENERAL: Opens eyes to name, intubated, mittens, NAD HEENT: OGT, ETT LUNGS: Clear anteriorly HEART: S1S2 regular ABD: Obese, BS present, soft : [place] EXT: Generalized swelling SKIN: No rash RUE-PICC.(11/04). clean Labs Lab Laboratory Tests Test 11/11/16 23:58 11/12/16 04:00 Glucose (Fingerstick) 163 mg/dL (70-99) Prothrombin Time 13.8 SEC (11.7-14.0) Prothromb Time International Ratio 1.1 (0.8-1.1) Activated Partial Thromboplast Time 28 SEC (24-38) Sodium Level 140 mmol/L (136-145) Potassium Level 4.3 mmol/L (3.5-5.1) Chloride Level 103 mmol/L (98-107) Carbon Dioxide Level 29 mmol/L (21-32) Anion Gap 8 (6-14) Blood Urea Nitrogen 21 mg/dL (7-20) Creatinine 0.8 mg/dL (0.6-1.0) Estimated GFR (Cockcroft-Gault) 87.7 Glucose Level 173 mg/dL (70-99) Calcium Level 9.4 mg/dL (8.5-10.1) Phosphorus Level 2.8 mg/dL (2.6-4.7) Creatine Kinase 186 U/L (26-192) Albumin 2.2 g/dL (3.4-5.0) Objective Assessment Klebsiella UTI, POA Fever, better Leukocytosis, possibly reactive, c.diff negative Respiratory failure Ángel pulmonary infiltrate, CHF vs pneumonia Acute renal failure, improving Rhabdomyolysis, CK trending down Schizophrenia Plan Plan of Care Zosyn and Zyvox on steroids Await trach Attending Co-Sign The patient was seen and interviewed as well as examined at the bedside. The chart was reviewed. The case was discussed. Agree with the plan of care. DAVE HERNANDEZ APRN Nov 12, 2016 08:14 CAITY SMITH MD Nov 12, 2016 10:58
[2016-11-12 08:29] LABS: HCO3 ABG 26 mmol/L (21-28); PCO2 ABG 41 mmHg (35-46); PH ABG 7.42 (7.35-7.45); PO2 ABG 65 mmHg (65-108); SAT O2 ABG 90 % (92-99)
[2016-11-12 08:31] LABS: FIO2 ABG 30
--- NOTE | 2016-11-12 08:43 | RAD ---
Portable AP upright view CXR: 0 528 Clinical indications: Respiratory distress. Intubated. Follow-up study. Comparison: November 11, 2016. IMPRESSION: Left perihilar lung infiltrate and left lung base consolidative infiltrate are still evident. There is improvement of the aeration of the left lateral lung base. This may be due to improvement of infiltrate or pleural effusion in this area. The right lung field is stable and no new infiltrate is seen on this side. No pneumothorax is seen. The heart size and mediastinum are stable. There've been no interval tube or line changes. NG tube is seen extending to at least the proximal body of the stomach in this study..
[2016-11-12] MEDS: diphenhydrAMINE 50 MG/ML VIAL IVP SCH ×3 (08:57→21:22)
[2016-11-12] MEDS: CETIRIZINE HCL 10 MG TABLET. PO SCH (08:57)
[2016-11-12] MEDS: predniSONE 20 MG TABLET PO SCH (08:57)
--- NOTE | 2016-11-12 10:20 | RAD ---
Portable AP semiupright chest x-ray performed at 09 History: ET tube advanced 2 cm. Follow-up study. Comparison: Same day performed at 05 IMPRESSION: ET tube tip is located 2.5 cm above the level of the rudy. NG tube remains in place and the tip is difficult to see in this study due to underpenetration and patient's body habitus. No pneumothorax is seen. Improvement of left perihilar lung infiltrate is seen. Persistent left lung base consolidative infiltrate is unchanged along with a small left-sided pleural effusion. There is an increase in interstitium on the right side which may be related to underpenetration but is otherwise unchanged from the previous study. No new lung infiltrate is seen on the right side. The heart size and mediastinum are stable.
--- NOTE | 2016-11-12 11:16 | PDOC ---
PROGRESS NOTES Chief Complaint Chief Complaint Complaint: respiratory failure Assessment and plan Acute hypoxic and hypercapnic resp failure with HAP, Failed on bipap and on mechanical ventilation from 10/31/2016 Fever and leukocytosis: Better today, no fevers for hours KPNA urinary tract infection, present on admission Healthcare associated pneumonia possible gram-negative rods COPD morbid obesity Congestive heart failure , LV ejection fraction 65% Ckd with jerrod, vasomotor HX of schizophrenia HTN tobaccoism Elevated CPK, unclear etiology Hypernatremia hypophosphatemia moderate malnutrition ANASARCA History of Present Illness History of Present Illness Seen in ICU On the ff gtts: versed, fentanyl, IVF D5 at 100cc/hr to address the hypernatremia and TF at 55 cc/hr LOts of 3rd spacing protruding tongue - started on and scheduled benadryl on 11/10 - SWELLING SEEMS TO BE BETTER TODAY SUNDAY Awake, able to nod and understand me when i told her about trach on sunday\ Family does not want PEG PLAN: Trach BY [facility] on sunday PM Select screen NO peg plans CPM the rest Dw [employer]PER[employer]ING FLOOR[employer]ERSON Vitals Vitals Vital Signs Date Time Temp Pulse Resp B/P (MAP) Pulse Ox O2 Delivery O2 Flow Rate FiO2 11/12/16 10:00 93 20 145/74 (97) 97 Ventilator 11/12/16 08:00 98.8 98.8 Physical Exam Physical Exam intubated, sedated General: Other (sedated) Heart: Regular rate, Normal S1, Normal S2 Lungs: Crackles Abdomen: Soft, No tenderness Extremities: Other (edema) Skin: No significant lesion Labs LABS Laboratory Tests Test 11/11/16 23:58 11/12/16 04:00 11/12/16 08:00 Glucose (Fingerstick) 163 mg/dL (70-99) Prothrombin Time 13.8 SEC (11.7-14.0) Prothromb Time International Ratio 1.1 (0.8-1.1) Activated Partial Thromboplast Time 28 SEC (24-38) Sodium Level 140 mmol/L (136-145) Potassium Level 4.3 mmol/L (3.5-5.1) Chloride Level 103 mmol/L (98-107) Carbon Dioxide Level 29 mmol/L (21-32) Anion Gap 8 (6-14) Blood Urea Nitrogen 21 mg/dL (7-20) Creatinine 0.8 mg/dL (0.6-1.0) Estimated GFR (Cockcroft-Gault) 87.7 Glucose Level 173 mg/dL (70-99) Calcium Level 9.4 mg/dL (8.5-10.1) Phosphorus Level 2.8 mg/dL (2.6-4.7) Creatine Kinase 186 U/L (26-192) Albumin 2.2 g/dL (3.4-5.0) O2 Saturation 90 % (92-99) Arterial Blood pH 7.42 (7.35-7.45) Arterial Blood pCO2 at Patient Temp 41 mmHg (35-46) Arterial Blood pO2 at Patient Temp 65 mmHg (65-108) Arterial Blood HCO3 26 mmol/L (21-28) Arterial Blood Base Excess 1 mmol/L (-3-3) FiO2 30 Review of Systems Review of Systems intubated Comment Review of Relevant I have reviewed the following items asif (where applicable) has been applied. Labs Laboratory Tests Test 11/10/16 11:28 11/10/16 17:40 11/11/16 00:10 11/11/16 05:20 Glucose (Fingerstick) 128 mg/dL (70-99) 164 mg/dL (70-99) 181 mg/dL (70-99) White Blood Count 21.5 x10^3/uL (4.0-11.0) Red Blood Count 2.71 x10^6/uL (3.50-5.40) Hemoglobin 7.6 g/dL (12.0-15.5) Hematocrit 24.3 % (36.0-47.0) Mean Corpuscular Volume 90 fL (79-100) Mean Corpuscular Hemoglobin 28 pg (25-35) Mean Corpuscular Hemoglobin Concent 32 g/dL (31-37) Red Cell Distribution Width 15.8 % (11.5-14.5) Platelet Count 467 x10^3/uL (140-400) Neutrophils (%) (Auto) 83 % (31-73) Lymphocytes (%) (Auto) 13 % (24-48) Monocytes (%) (Auto) 4 % (0-9) Eosinophils (%) (Auto) 0 % (0-3) Basophils (%) (Auto) 0 % (0-3) Neutrophils # (Auto) 17.8 x10^3uL (1.8-7.7) Lymphocytes # (Auto) 2.8 x10^3/uL (1.0-4.8) Monocytes # (Auto) 0.9 x10^3/uL (0.0-1.1) Eosinophils # (Auto) 0.0 x10^3/uL (0.0-0.7) Basophils # (Auto) 0.1 x10^3/uL (0.0-0.2) Sodium Level 140 mmol/L (136-145) Potassium Level 4.8 mmol/L (3.5-5.1) Chloride Level 106 mmol/L (98-107) Carbon Dioxide Level 29 mmol/L (21-32) Anion Gap 5 (6-14) Blood Urea Nitrogen 19 mg/dL (7-20) Creatinine 0.8 mg/dL (0.6-1.0) Estimated GFR (Cockcroft-Gault) 87.7 Glucose Level 179 mg/dL (70-99) Calcium Level 8.9 mg/dL (8.5-10.1) Phosphorus Level 3.3 mg/dL (2.6-4.7) Creatine Kinase 249 U/L (26-192) Albumin 2.0 g/dL (3.4-5.0) Test 11/11/16 08:00 11/11/16 23:58 11/12/16 04:00 11/12/16 08:00 O2 Saturation 88 % (92-99) 90 % (92-99) Arterial Blood pH 7.44 (7.35-7.45) 7.42 (7.35-7.45) Arterial Blood pCO2 at Patient Temp 42 mmHg (35-46) 41 mmHg (35-46) Arterial Blood pO2 at Patient Temp 59 mmHg (65-108) 65 mmHg (65-108) Arterial Blood HCO3 28 mmol/L (21-28) 26 mmol/L (21-28) Arterial Blood Base Excess 3 mmol/L (-3-3) 1 mmol/L (-3-3) FiO2 40 30 Glucose (Fingerstick) 163 mg/dL (70-99) Prothrombin Time 13.8 SEC (11.7-14.0) Prothromb Time International Ratio 1.1 (0.8-1.1) Activated Partial Thromboplast Time 28 SEC (24-38) Sodium Level 140 mmol/L (136-145) Potassium Level 4.3 mmol/L (3.5-5.1) Chloride Level 103 mmol/L (98-107) Carbon Dioxide Level 29 mmol/L (21-32) Anion Gap 8 (6-14) Blood Urea Nitrogen 21 mg/dL (7-20) Creatinine 0.8 mg/dL (0.6-1.0) Estimated GFR (Cockcroft-Gault) 87.7 Glucose Level 173 mg/dL (70-99) Calcium Level 9.4 mg/dL (8.5-10.1) Phosphorus Level 2.8 mg/dL (2.6-4.7) Creatine Kinase 186 U/L (26-192) Albumin 2.2 g/dL (3.4-5.0) Laboratory Tests Test 11/11/16 23:58 11/12/16 04:00 11/12/16 08:00 Glucose (Fingerstick) 163 mg/dL (70-99) Prothrombin Time 13.8 SEC (11.7-14.0) Prothromb Time International Ratio 1.1 (0.8-1.1) Activated Partial Thromboplast Time 28 SEC (24-38) Sodium Level 140 mmol/L (136-145) Potassium Level 4.3 mmol/L (3.5-5.1) Chloride Level 103 mmol/L (98-107) Carbon Dioxide Level 29 mmol/L (21-32) Anion Gap 8 (6-14) Blood Urea Nitrogen 21 mg/dL (7-20) Creatinine 0.8 mg/dL (0.6-1.0) Estimated GFR (Cockcroft-Gault) 87.7 Glucose Level 173 mg/dL (70-99) Calcium Level 9.4 mg/dL (8.5-10.1) Phosphorus Level 2.8 mg/dL (2.6-4.7) Creatine Kinase 186 U/L (26-192) Albumin 2.2 g/dL (3.4-5.0) O2 Saturation 90 % (92-99) Arterial Blood pH 7.42 (7.35-7.45) Arterial Blood pCO2 at Patient Temp 41 mmHg (35-46) Arterial Blood pO2 at Patient Temp 65 mmHg (65-108) Arterial Blood HCO3 26 mmol/L (21-28) Arterial Blood Base Excess 1 mmol/L (-3-3) FiO2 30 Microbiology 11/02/16 Blood Culture - Final, Complete NO GROWTH AFTER 5 DAYS 11/01/16 Sputum Culture - Final, Complete 11/01/16 Sputum Result 1 - Final, Complete 10/31/16 Urine Culture - Final, Complete 10/31/16 Urine Culture Result 1 (ISAIAS) - Final, Complete 10/31/16 Antimicrobic Susceptibility - Final, Complete Medications Current Medications Methylprednisolone Sodium Succinate (SOLU-Medrol 125MG VIAL) 125 mg 1X ONCE IV Last administered on 10/31/16 11:18; Start 10/31/16 at 11:00; Stop 10/31/16 at 11:01; Status DC Albuterol/ Ipratropium (Duoneb) 3 ml 1X ONCE NEB Last administered on 11:00; Start 10/31/16 at 11:00; Stop 10/31/16 at 11:01; Status DC Furosemide (Lasix) 40 mg 1X ONCE IVP Last administered on 10/31/16 11:17; Start 10/31/16 at 11:15; Stop 10/31/16 at 11:16; Status DC Vancomycin HCl (Vanco Per Pharmacy) 1 each PRN DAILY PRN MC SEE COMMENTS Last administered on 11/06/16 10:19; Start 10/31/16 at 11:30; Stop 11/06/16 at 14:40 ; Status DC Piperacillin Sod/ Tazobactam Sod (Zosyn Per Pharmacy) 1 each PRN DAILY PRN MC SEE COMMENTS; Start 10/31/16 at 11:30; Stop 11/02/16 at 08:44; Status DC Levofloxacin/ Dextrose (Levaquin Per Pharmacy) 1 each PRN DAILY PRN MC SEE COMMENTS; Start 10/31/16 at 11:30; Stop 10/31/16 at 12:57; Status DC Vancomycin HCl 2 gm/Sodium Chloride 500 ml @ 250 mls/hr 1X ONCE IV Last administered on 10/31/16 14:30; Start 10/31/16 at 11:30; Stop 10/31/16 at 13:29 ; Status DC Levofloxacin/ Dextrose 150 ml @ 100 mls/hr ONCE ONCE IV Last administered on 10/31/16 12:45; Start 10/31/16 at 11:30; Stop 10/31/16 at 12:59; Status DC Piperacillin Sod/ Tazobactam Sod 3.375 gm/Sodium Chloride 50 ml @ 100 mls/hr ONCE ONCE IV Last administered on 10/31/16 11:38; Start 10/31/16 at 11:45; Stop 10/31/16 at 12:14; Status DC Levofloxacin/ Dextrose 150 ml @ 100 mls/hr Q48H IV Last administered on 10:54; Start 11/02/16 at 10:00; Stop 11/05/16 at 09:18; Status DC Piperacillin Sod/ Tazobactam Sod 3.375 gm/Sodium Chloride 50 ml @ 100 mls/hr Q6HRS IV Last administered on 11/02/16 05:44; Start 10/31/16 at 18:00; Stop at 08:47; Status DC Acetaminophen (Tylenol) 650 mg PRN Q6HRS PRN PO FEVER Last administered on 11/01 20:26; Start 10/31/16 at 15:15; Stop 11/02/16 at 07:45; Status DC Ondansetron HCl (Zofran) 4 mg PRN Q6HRS PRN IV NAUSEA/VOMITING; Start 10/31/16 at 15:15 Morphine Sulfate 2 mg PRN Q2HR PRN IV PAIN Last administered on 11/08/16 06:16 ; Start 10/31/16 at 15:15 Tramadol HCl (Ultram) 50 mg PRN Q6HRS PRN PO PAIN; Start 10/31/16 at 15:15 Hydralazine HCl (Apresoline) 10 mg PRN Q4HRS PRN IVP ELEVATED BP, SEE COMMENTS Last administered on 11/08/16 05:13; Start 10/31/16 at 15:15 Docusate Sodium (Colace) 100 mg PRN DAILY PRN PO CONSTIPATION Last administered on 11/05/16 12:04; Start 10/31/16 at 15:15 Albuterol/ Ipratropium (Duoneb) 3 ml RTQID NEB Last administered on 11/12/16 07:22; Start 10/31/16 at 16:00 Albuterol Sulfate (Ventolin Neb Soln) 2.5 mg PRN Q4HRS PRN NEB SHORTNESS OF BREATH; Start 10/31/16 at 15:15 Heparin Sodium (Porcine) (Heparin Sq) 5,000 unit Q8HRS SQ Last administered on 11/12/16 05:34; Start 10/31/16 at 22:00 Famotidine (Pepcid) 20 mg QHS IVP Last administered on 11/11/16 20:59; Start 10/31/16 at 21:00 Vancomycin HCl 2 gm/Sodium Chloride 500 ml @ 250 mls/hr Q24H IV Last administered on 11/02/16 14:14; Start 11/01/16 at 14:00; Stop 11/02/16 at 14:24 ; Status DC Vancomycin HCl 1 each 1X ONCE MC Last administered on 11/02/16 13:30; Start 11/02/16 at 13:30; Stop 11/02/16 at 13:31; Status DC Sodium Chloride 1,000 ml @ 80 mls/hr [id number] IV Last administered on 08:27; Start 10/31/16 at 16:15; Stop 11/05/16 at 08:31; Status DC Sodium Chloride 1,000 ml @ 1,000 mls/hr 1X ONCE IV Last administered on 18:04; Start 10/31/16 at 14:00; Stop 10/31/16 at 17:23; Status DC Sodium Chloride 500 ml @ 500 mls/hr 1X ONCE IV Last administered on 17:30; Start 10/31/16 at 17:30; Stop 10/31/16 at 18:29; Status DC Fentanyl Citrate 30 ml @ 0 mls/hr CONT PRN IV PROTOCOL Last administered on 08:42; Start 10/31/16 at 18:30 Propofol 100 ml @ 0 mls/hr CONT PRN IV PER PROTOCOL Last administered on 19:00; Start 10/31/16 at 18:30 Chlorhexidine Gluconate (Peridex) 15 ml BID MM Last administered on 11/12/16 06:57; Start 10/31/16 at 21:00 Artificial Tears (Artificial Tears) 1 drop PRN Q1HR PRN OU DRY EYE; Start 10/31 at 18:30 Midazolam HCl 100 ml @ 0 mls/hr CONT PRN IV PER PROTOCOL Last administered on 04:14; Start 10/31/16 at 18:30 Succinylcholine Chloride (Anectine) 200 mg STK-MED ONCE .ROUTE ; Start 10/31/16 at 18:43; Stop 10/31/16 at 18:44; Status DC Midazolam HCl (Versed) 5 mg STK-MED ONCE .ROUTE ; Start 10/31/16 at 18:45; Stop 10/31/16 at 18:46; Status DC Midazolam HCl (Versed) 5 mg 1X ONCE IV Last administered on 10/31/16 19:30; Start 10/31/16 at 19:30; Stop 10/31/16 at 19:31; Status DC Succinylcholine Chloride (Anectine) 200 mg STK-MED ONCE .ROUTE ; Start 10/31/16 at 18:45; Stop 11/01/16 at 08:13; Status DC Furosemide (Lasix) 20 mg 1X ONCE IVP Last administered on 11/01/16 13:48; Start 11/01/16 at 13:30; Stop 11/01/16 at 13:31; Status DC Sodium Chloride 500 ml @ 500 mls/hr 1X ONCE IV Last administered on 23:09; Start 11/01/16 at 23:15; Stop 11/02/16 at 00:14; Status DC Acetaminophen (Tylenol) 650 mg PRN Q6HRS PRN PEG MILD PAIN / TEMP Last administered on 11/05/16 16:39; Start 11/02/16 at 07:45 Piperacillin Sod/ Tazobactam Sod 4.5 gm/Sodium Chloride 100 ml @ 200 mls/hr Q6HRS IV Last administered on 11/12/16 05:29; Start 11/02/16 at 12:00 Sodium Chloride 500 ml @ 500 mls/hr 1X ONCE IV Last administered on 14:10; Start 11/02/16 at 13:00; Stop 11/02/16 at 13:59; Status DC Sodium Chloride 1,000 ml @ 75 mls/hr [id number] IV ; Start 11/02/16 at 13:00; Stop 11/02/16 at 13:25; Status DC Vancomycin HCl 1.75 gm/Sodium Chloride 500 ml @ 250 mls/hr Q18H IV Last administered on 11/06/16 09:13; Start 11/03/16 at 08:00; Stop 11/06/16 at 14:39 ; Status DC Vancomycin HCl 1 each 1X ONCE MC Last administered on 11/04/16 19:30; Start 11/04/16 at 19:30; Stop 11/04/16 at 19:31; Status DC Metoclopramide HCl (Reglan) 10 mg 1X ONCE IV Last administered on 11/03/16 16 :35; Start 11/03/16 at 15:45; Stop 11/03/16 at 15:46; Status DC Furosemide (Lasix) 20 mg 1X ONCE IVP Last administered on 11/04/16 10:54; Start 11/04/16 at 10:30; Stop 11/04/16 at 10:31; Status DC Metoclopramide HCl (Reglan) 10 mg 1X ONCE IV Last administered on 11/04/16 17 :15; Start 11/04/16 at 17:15; Stop 11/04/16 at 17:16; Status DC Magnesium Sulfate/ Dextrose 50 ml @ 25 mls/hr PRN DAILY PRN IV for Mag < 1.7 on am labs; Start 11/05/16 at 08:15 Hydrochlorothiazide (Hydrodiuril) 25 mg DAILY PO Last administered on 12:04; Start 11/05/16 at 09:00; Stop 11/06/16 at 11:08; Status DC Levofloxacin/ Dextrose 150 ml @ 100 mls/hr Q24H IV Last administered on 10:00; Start 11/05/16 at 10:00; Stop 11/06/16 at 14:39; Status DC Sodium Chloride 1,000 ml @ 75 mls/hr [id number] IV Last administered on 04:54; Start 11/05/16 at 15:45; Stop 11/06/16 at 09:26; Status DC Sodium Chloride 1,000 ml @ 75 mls/hr [id number] IV Last administered on 09:38; Start 11/06/16 at 09:30; Stop 11/07/16 at 07:37; Status DC Furosemide (Lasix) 20 mg 1X ONCE IVP Last administered on 11/06/16 09:38; Start 11/06/16 at 09:30; Stop 11/06/16 at 09:31; Status DC Potassium Phosphate 10 mmol/ Sodium Chloride 103.3333 ml @ 51.667 m... Q2H IV Last administered on 11/06/16 20:16; Start 11/06/16 at 13:30; Stop 11/06/16 at 17:29; Status DC Dextrose 1,000 ml @ 50 mls/hr Q20H IV Last administered on 11/07/16 09:40; Start 11/07/16 at 09:15; Stop 11/07/16 at 12:31; Status DC Dextrose 1,000 ml @ 100 mls/hr Q10H IV Last administered on 11/09/16 08:20; Start 11/07/16 at 19:30; Stop 11/09/16 at 14:39; Status DC Furosemide (Lasix) 20 mg 1X ONCE IVP Last administered on 11/08/16 09:17; Start 11/08/16 at 09:30; Stop 11/08/16 at 09:31; Status DC Saliva Substitute (Biotene Moisturizing Mouth) 2 spray PRN Q15MIN PRN PO DRY MOUTH; Start 11/08/16 at 17:30 Cetirizine HCl (ZyrTEC) 10 mg DAILY PO Last administered on 11/12/16 08:57; Start 11/10/16 at 09:00 Diphenhydramine HCl (Benadryl) 25 mg PRN Q6HRS PRN IVP ITCHING Last administered on 11/10/16 05:50; Start 11/09/16 at 10:30; Stop 11/10/16 at 14:00 ; Status DC Linezolid 300 ml @ 300 mls/hr Q12HR IV Last administered on 11/12/16 08:57; Start 11/10/16 at 10:00 Diphenhydramine HCl (Benadryl) 50 mg TID IVP Last administered on 11/12/16 08: 57; Start 11/10/16 at 14:00 Methylprednisolone Sodium Succinate (SOLU-Medrol 40MG VIAL) 40 mg Q12HR IV Last administered on 11/11/16 20:59; Start 11/10/16 at 11:00; Stop 11/12/16 at 08:09; Status DC Furosemide (Lasix) 60 mg 1X ONCE IVP Last administered on 11/11/16 10:26; Start 11/11/16 at 09:30; Stop 11/11/16 at 09:31; Status DC Prednisone (Prednisone) 40 mg DAILY PO Last administered on 11/12/16 08:57; Start 11/12/16 at 09:00 Active Scripts Active Reported Trazodone Hcl 100 Mg Tablet 100 Mg PO HS Polyethylene Glycol 3350 255 Gm Powder 17 Gm PO DAILY Olanzapine 20 Mg Tablet 2 Tab PO QHS Montelukast Sodium Tablet (Montelukast Sodium) 10 Mg Tablet 10 Mg PO HS Meloxicam 15 Mg Tablet 1 Tab PO DAILY Losartan Potassium 50 Mg Tablet 50 Mg PO DAILY Lorazepam 1 Mg Tablet 1 Mg PO HS Lasix (Furosemide) 40 Mg Tablet 40 Mg PO PRN DAILY Hydrochlorothiazide Tablet (Hydrochlorothiazide) 25 Mg Tablet 25 Mg PO DAILY Folic Acid 1 Mg Tablet 1 Mg PO DAILY Fluoxetine Hcl 40 Mg Capsule 40 Mg PO DAILY Famotidine 20 Mg Tablet 20 Mg PO BID Duoneb 0.5-3(2.5) Mg/3 Ml (Albuterol/Ipratropium) 3 Ml Ampul.neb 3 Ml NEB QID Docusate Sodium 100 Mg Capsule 1 Cap PO BID Clonidine Hcl 0.1 Mg Tablet 0.1 Mg PO QID Cetirizine Hcl 10 Mg Tablet 1 Tab PO DAILY Vitals/I & O Vital Sign - Last 24 Hours 11/11/16 11/11/16 11/11/16 11/11/16 11:18 12:00 12:00 12:53 Temp 98.2 98.2 Pulse 94 Resp 20 B/P (MAP) 147/96 (113) Pulse Ox 94 93 94 O2 Delivery Ventilator Ventilator Mechanical Ventilator Ventilator 11/11/16 11/11/16 11/11/16 11/11/16 13:00 14:00 15:00 15:13 Pulse 94 98 97 Resp 25 28 20 B/P (MAP) 152/91 (111) 161/86 (111) 148/77 (100) Pulse Ox 92 94 94 94 O2 Delivery Ventilator Ventilator Ventilator Ventilator 7/29/11/11/16 11/11/16 11/11/16 16:00 16:00 16:51 17:07 Temp 98.4 98.4 Pulse 100 92 Resp 20 19 B/P (MAP) 147/76 (99) 140/72 (94) Pulse Ox 94 92 93 O2 Delivery Mechanical Ventilator Ventilator Ventilator Ventilator 11/11/16 11/11/16 11/11/16 11/11/16 18:00 19:00 19:48 20:00 Pulse 82 82 Resp 20 20 B/P (MAP) 145/87 (106) 115/72 (86) Pulse Ox 94 94 94 O2 Delivery Ventilator Ventilator Ventilator Mechanical Ventilator 11/11/16 11/11/16 11/11/16 11/11/16 20:00 21:00 22:00 22:08 Temp 97.8 97.8 Pulse 88 89 86 Resp 20 20 20 20 B/P (MAP) 133/76 (95) 159/91 (113) 137/80 (99) Pulse Ox 96 94 95 96 O2 Delivery Ventilator Ventilator Ventilator Ventilator 11/11/16 11/11/16 11/11/16 11/12/16 22:13 23:00 23:59 00:00 Temp 97.5 97.5 Pulse 74 83 Resp 20 20 B/P (MAP) 143/85 (104) 139/74 (95) Pulse Ox 95 95 96 O2 Delivery Ventilator Ventilator Mechanical Ventilator Ventilator 11/12/16 11/12/16 11/12/16 11/12/16 00:40 01:00 02:00 03:00 Pulse 84 84 90 Resp 21 21 23 B/P (MAP) 153/78 (103) 153/87 (109) 164/94 (117) Pulse Ox 97 96 96 96 O2 Delivery Ventilator Ventilator Ventilator Ventilator 11/12/16 11/12/16 11/12/16 11/12/16 03:14 04:00 04:00 05:00 Temp 98.3 98.3 Pulse 100 73 Resp 27 20 B/P (MAP) 162/88 (112) 128/73 (91) Pulse Ox 96 92 96 O2 Delivery Ventilator Ventilator Mechanical Ventilator Ventilator 11/12/16 11/12/16 11/12/16 11/12/16 05:50 06:00 07:00 07:22 Pulse 84 91 Resp 20 20 B/P (MAP) 137/73 (94) 147/81 (103) Pulse Ox 97 97 96 95 O2 Delivery Ventilator Ventilator Ventilator Ventilator 11/12/16 11/12/16 11/12/16 11/12/16 08:00 08:00 08:42 08:56 Temp 98.8 98.8 Pulse 87 Resp 24 20 B/P (MAP) 153/78 (103) Pulse Ox 96 94 95 O2 Delivery Ventilator Mechanical Ventilator Ventilator Ventilator 11/12/16 11/12/16 11/12/16 09:00 09:17 10:00 Pulse 79 93 Resp 20 20 20 B/P (MAP) 134/78 (96) 145/74 (97) Pulse Ox 96 96 97 O2 Delivery Ventilator Ventilator Ventilator Intake and Output 11/11/16 11/11/16 11/12/16 15:00 23:00 07:00 Intake Total 820 ml 1544.91 ml 1290 ml Output Total 3125 ml 1130 ml 1090 ml Balance -2305 ml 414.91 ml 200 ml RENÉ RAMIREZ MD Nov 12, 2016 11:16
[2016-11-12] MEDS: FAMOTIDINE 20 MG/2 ML VIAL IVP SCH (21:22)
[2016-11-13] VITALS (23 sets, daily range): BP systolic 148–177; BP diastolic 76–93
[2016-11-13] MEDS: PIPERACILLIN/TAZOBACTAM 4.5 GM in IV NORMAL SALINE 100ML 100 ML IV SCH ×4 (00:04→17:02)
[2016-11-13] MEDS: HEPARIN PF for SUB-Q USE 5,000 UNIT/0.5 ML VIAL. SQ SCH ×4 (00:05→21:21)
--- NOTE | 2016-11-13 07:34 | PDOC ---
Infectious Disease Note Subjective Subjective Remains intubated. 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 SKIN: No rash IV: ok Labs Lab Laboratory Tests Test 11/12/16 08:00 11/13/16 00:24 11/13/16 06:20 O2 Saturation 90 % (92-99) Arterial Blood pH 7.42 (7.35-7.45) Arterial Blood pCO2 at Patient Temp 41 mmHg (35-46) Arterial Blood pO2 at Patient Temp 65 mmHg (65-108) Arterial Blood HCO3 26 mmol/L (21-28) Arterial Blood Base Excess 1 mmol/L (-3-3) FiO2 30 Glucose (Fingerstick) 134 mg/dL (70-99) 128 mg/dL (70-99) Micro BC neg URINE CULTURE Final Final report URINE CULTURE RES 1 Final Klebsiella pneumoniae Greater than 100,000 colony forming units per mL ANTIMICROBIAL SUSCEPTIBILITY Final Comment S = Susceptible; I = Intermediate; R = Resistant P = Positive; N = Negative MICS are expressed in micrograms per mL Antibiotic RSLT#1 RSLT#2 RSLT#3 RSLT#4 Amoxicillin/Clavulanic Acid S Ampicillin R Cefepime S Ceftriaxone S Cefuroxime S Cephalothin S Ciprofloxacin S Ertapenem S Gentamicin S Imipenem S Levofloxacin S Nitrofurantoin S Piperacillin S Tetracycline S Tobramycin S Trimethoprim/Sulfa S Performed at: [address] [id number] Medicare Sales Representative: Yumiko Merritt MD, Phone: [phone] Objective Assessment Klebsiella UTI, POA Fever, better Leukocytosis, possibly reactive, c.diff negative Respiratory failure Ángel pulmonary infiltrate, CHF vs pneumonia Acute renal failure, improving Rhabdomyolysis, CK trending down Schizophrenia Plan Plan of Care Zosyn and Zyvox on steroids Await CAITY Bowles MD Nov 13, 2016 07:34
[2016-11-13] MEDS: IPRATRPIUM/ALBUTEROL 0.5/2.5MG 3 ML NEBU. NEB SCH ×4 (07:58→19:18)
[2016-11-13 08:13] LABS: HCO3 ABG 25 mmol/L (21-28); PCO2 ABG 37 mmHg (35-46); PH ABG 7.45 (7.35-7.45); PO2 ABG 63 mmHg (65-108); SAT O2 ABG 89 % (92-99)
[2016-11-13 08:16] LABS: FIO2 ABG 40
--- NOTE | 2016-11-13 09:18 | PDOC ---
PROGRESS NOTES Chief Complaint Chief Complaint Acute hypoxic and hypercapnic resp failure with HAP, Failed on bipap, now on mechanical ventilation from 10/31/2016 Fever and leukocytosis: urinary tract infection, present on admission Healthcare associated pneumonia possible gram-negative rods COPD morbid obesity, BMI 53 chronic diastolic Congestive heart failure , LV ejection fraction 65% Ckd with jerrod, vasomotor HX of schizophrenia, was in psych facility before admit here HTN, chronic tobaccoism Elevated CPK, unclear etiology Hypernatremia hypophosphatemia moderate malnutrition in morbid obesity diffuse edema, chf and malnutrition History of Present Illness History of Present Illness Seen in ICU IVF D5 at 100cc/hr to address the hypernatremia - tube feeds held LOts of 3rd spacing protruding tongue - able to waken, able to nod Family does not want PEG consider Trach this PM, or per CT surg avail check labs now Vitals Vitals Vital Signs Date Time Temp Pulse Resp B/P (MAP) Pulse Ox O2 Delivery O2 Flow Rate FiO2 11/13/16 09:00 78 19 156/82 (106) 95 Ventilator 11/13/16 08:00 97.9 97.9 Physical Exam Physical Exam intubated, sedated General: Other (sedated) Heart: Regular rate, Normal S1, Normal S2 Lungs: Crackles Abdomen: Soft, No tenderness Extremities: Other (edema) Skin: No significant lesion Labs LABS Laboratory Tests Test 11/13/16 00:24 11/13/16 06:20 11/13/16 08:00 Glucose (Fingerstick) 134 mg/dL (70-99) 128 mg/dL (70-99) O2 Saturation 89 % (92-99) Arterial Blood pH 7.45 (7.35-7.45) Arterial Blood pCO2 at Patient Temp 37 mmHg (35-46) Arterial Blood pO2 at Patient Temp 63 mmHg (65-108) Arterial Blood HCO3 25 mmol/L (21-28) Arterial Blood Base Excess 1 mmol/L (-3-3) FiO2 40 Review of Systems Review of Systems unable Assessment and Plan Assessmemt and Plan CT surgery discussing trach with family, there has been some discussion about family requesting transfer to . will discuss later, Problems: Comment Review of Relevant I have reviewed the following items asif (where applicable) has been applied. Labs Laboratory Tests Test 11/11/16 23:58 11/12/16 04:00 11/12/16 08:00 11/13/16 00:24 Glucose (Fingerstick) 163 mg/dL (70-99) 134 mg/dL (70-99) Prothrombin Time 13.8 SEC (11.7-14.0) Prothromb Time International Ratio 1.1 (0.8-1.1) Activated Partial Thromboplast Time 28 SEC (24-38) Sodium Level 140 mmol/L (136-145) Potassium Level 4.3 mmol/L (3.5-5.1) Chloride Level 103 mmol/L (98-107) Carbon Dioxide Level 29 mmol/L (21-32) Anion Gap 8 (6-14) Blood Urea Nitrogen 21 mg/dL (7-20) Creatinine 0.8 mg/dL (0.6-1.0) Estimated GFR (Cockcroft-Gault) 87.7 Glucose Level 173 mg/dL (70-99) Calcium Level 9.4 mg/dL (8.5-10.1) Phosphorus Level 2.8 mg/dL (2.6-4.7) Creatine Kinase 186 U/L (26-192) Albumin 2.2 g/dL (3.4-5.0) O2 Saturation 90 % (92-99) Arterial Blood pH 7.42 (7.35-7.45) Arterial Blood pCO2 at Patient Temp 41 mmHg (35-46) Arterial Blood pO2 at Patient Temp 65 mmHg (65-108) Arterial Blood HCO3 26 mmol/L (21-28) Arterial Blood Base Excess 1 mmol/L (-3-3) FiO2 30 Test 11/13/16 06:20 11/13/16 08:00 Glucose (Fingerstick) 128 mg/dL (70-99) O2 Saturation 89 % (92-99) Arterial Blood pH 7.45 (7.35-7.45) Arterial Blood pCO2 at Patient Temp 37 mmHg (35-46) Arterial Blood pO2 at Patient Temp 63 mmHg (65-108) Arterial Blood HCO3 25 mmol/L (21-28) Arterial Blood Base Excess 1 mmol/L (-3-3) FiO2 40 Laboratory Tests Test 11/13/16 00:24 11/13/16 06:20 11/13/16 08:00 Glucose (Fingerstick) 134 mg/dL (70-99) 128 mg/dL (70-99) O2 Saturation 89 % (92-99) Arterial Blood pH 7.45 (7.35-7.45) Arterial Blood pCO2 at Patient Temp 37 mmHg (35-46) Arterial Blood pO2 at Patient Temp 63 mmHg (65-108) Arterial Blood HCO3 25 mmol/L (21-28) Arterial Blood Base Excess 1 mmol/L (-3-3) FiO2 40 Microbiology 11/02/16 Blood Culture - Final, Complete NO GROWTH AFTER 5 DAYS 11/01/16 Sputum Culture - Final, Complete 11/01/16 Sputum Result 1 - Final, Complete 10/31/16 Urine Culture - Final, Complete 10/31/16 Urine Culture Result 1 (ISAIAS) - Final, Complete 10/31/16 Antimicrobic Susceptibility - Final, Complete Medications Current Medications Methylprednisolone Sodium Succinate (SOLU-Medrol 125MG VIAL) 125 mg 1X ONCE IV Last administered on 10/31/16 11:18; Start 10/31/16 at 11:00; Stop 10/31/16 at 11:01; Status DC Albuterol/ Ipratropium (Duoneb) 3 ml 1X ONCE NEB Last administered on 11:00; Start 10/31/16 at 11:00; Stop 10/31/16 at 11:01; Status DC Furosemide (Lasix) 40 mg 1X ONCE IVP Last administered on 10/31/16 11:17; Start 10/31/16 at 11:15; Stop 10/31/16 at 11:16; Status DC Vancomycin HCl (Vanco Per Pharmacy) 1 each PRN DAILY PRN MC SEE COMMENTS Last administered on 11/06/16 10:19; Start 10/31/16 at 11:30; Stop 11/06/16 at 14:40 ; Status DC Piperacillin Sod/ Tazobactam Sod (Zosyn Per Pharmacy) 1 each PRN DAILY PRN MC SEE COMMENTS; Start 10/31/16 at 11:30; Stop 11/02/16 at 08:44; Status DC Levofloxacin/ Dextrose (Levaquin Per Pharmacy) 1 each PRN DAILY PRN MC SEE COMMENTS; Start 10/31/16 at 11:30; Stop 10/31/16 at 12:57; Status DC Vancomycin HCl 2 gm/Sodium Chloride 500 ml @ 250 mls/hr 1X ONCE IV Last administered on 10/31/16 14:30; Start 10/31/16 at 11:30; Stop 10/31/16 at 13:29 ; Status DC Levofloxacin/ Dextrose 150 ml @ 100 mls/hr ONCE ONCE IV Last administered on 10/31/16 12:45; Start 10/31/16 at 11:30; Stop 10/31/16 at 12:59; Status DC Piperacillin Sod/ Tazobactam Sod 3.375 gm/Sodium Chloride 50 ml @ 100 mls/hr ONCE ONCE IV Last administered on 10/31/16 11:38; Start 10/31/16 at 11:45; Stop 10/31/16 at 12:14; Status DC Levofloxacin/ Dextrose 150 ml @ 100 mls/hr Q48H IV Last administered on 10:54; Start 11/02/16 at 10:00; Stop 11/05/16 at 09:18; Status DC Piperacillin Sod/ Tazobactam Sod 3.375 gm/Sodium Chloride 50 ml @ 100 mls/hr Q6HRS IV Last administered on 11/02/16 05:44; Start 10/31/16 at 18:00; Stop at 08:47; Status DC Acetaminophen (Tylenol) 650 mg PRN Q6HRS PRN PO FEVER Last administered on 11/01 20:26; Start 10/31/16 at 15:15; Stop 11/02/16 at 07:45; Status DC Ondansetron HCl (Zofran) 4 mg PRN Q6HRS PRN IV NAUSEA/VOMITING; Start 10/31/16 at 15:15 Morphine Sulfate 2 mg PRN Q2HR PRN IV PAIN Last administered on 11/08/16 06:16 ; Start 10/31/16 at 15:15 Tramadol HCl (Ultram) 50 mg PRN Q6HRS PRN PO PAIN; Start 10/31/16 at 15:15 Hydralazine HCl (Apresoline) 10 mg PRN Q4HRS PRN IVP ELEVATED BP, SEE COMMENTS Last administered on 11/08/16 05:13; Start 10/31/16 at 15:15 Docusate Sodium (Colace) 100 mg PRN DAILY PRN PO CONSTIPATION Last administered on 11/05/16 12:04; Start 10/31/16 at 15:15 Albuterol/ Ipratropium (Duoneb) 3 ml RTQID NEB Last administered on 11/13/16 07:58; Start 10/31/16 at 16:00 Albuterol Sulfate (Ventolin Neb Soln) 2.5 mg PRN Q4HRS PRN NEB SHORTNESS OF BREATH; Start 10/31/16 at 15:15 Heparin Sodium (Porcine) (Heparin Sq) 5,000 unit Q8HRS SQ Last administered on 11/13/16 05:52; Start 10/31/16 at 22:00 Famotidine (Pepcid) 20 mg QHS IVP Last administered on 11/12/16 21:22; Start 10/31/16 at 21:00 Vancomycin HCl 2 gm/Sodium Chloride 500 ml @ 250 mls/hr Q24H IV Last administered on 11/02/16 14:14; Start 11/01/16 at 14:00; Stop 11/02/16 at 14:24 ; Status DC Vancomycin HCl 1 each 1X ONCE MC Last administered on 11/02/16 13:30; Start 11/02/16 at 13:30; Stop 11/02/16 at 13:31; Status DC Sodium Chloride 1,000 ml @ 80 mls/hr [id number] IV Last administered on 08:27; Start 10/31/16 at 16:15; Stop 11/05/16 at 08:31; Status DC Sodium Chloride 1,000 ml @ 1,000 mls/hr 1X ONCE IV Last administered on 18:04; Start 10/31/16 at 14:00; Stop 10/31/16 at 17:23; Status DC Sodium Chloride 500 ml @ 500 mls/hr 1X ONCE IV Last administered on 17:30; Start 10/31/16 at 17:30; Stop 10/31/16 at 18:29; Status DC Fentanyl Citrate 30 ml @ 0 mls/hr CONT PRN IV PROTOCOL Last administered on 05:48; Start 10/31/16 at 18:30 Propofol 100 ml @ 0 mls/hr CONT PRN IV PER PROTOCOL Last administered on 19:00; Start 10/31/16 at 18:30 Chlorhexidine Gluconate (Peridex) 15 ml BID MM Last administered on 11/12/16 21:22; Start 10/31/16 at 21:00 Artificial Tears (Artificial Tears) 1 drop PRN Q1HR PRN OU DRY EYE; Start 10/31 at 18:30 Midazolam HCl 100 ml @ 0 mls/hr CONT PRN IV PER PROTOCOL Last administered on 21:23; Start 10/31/16 at 18:30 Succinylcholine Chloride (Anectine) 200 mg STK-MED ONCE .ROUTE ; Start 10/31/16 at 18:43; Stop 10/31/16 at 18:44; Status DC Midazolam HCl (Versed) 5 mg STK-MED ONCE .ROUTE ; Start 10/31/16 at 18:45; Stop 10/31/16 at 18:46; Status DC Midazolam HCl (Versed) 5 mg 1X ONCE IV Last administered on 10/31/16 19:30; Start 10/31/16 at 19:30; Stop 10/31/16 at 19:31; Status DC Succinylcholine Chloride (Anectine) 200 mg STK-MED ONCE .ROUTE ; Start 10/31/16 at 18:45; Stop 11/01/16 at 08:13; Status DC Furosemide (Lasix) 20 mg 1X ONCE IVP Last administered on 11/01/16 13:48; Start 11/01/16 at 13:30; Stop 11/01/16 at 13:31; Status DC Sodium Chloride 500 ml @ 500 mls/hr 1X ONCE IV Last administered on 23:09; Start 11/01/16 at 23:15; Stop 11/02/16 at 00:14; Status DC Acetaminophen (Tylenol) 650 mg PRN Q6HRS PRN PEG MILD PAIN / TEMP Last administered on 11/05/16 16:39; Start 11/02/16 at 07:45 Piperacillin Sod/ Tazobactam Sod 4.5 gm/Sodium Chloride 100 ml @ 200 mls/hr Q6HRS IV Last administered on 11/13/16 05:49; Start 11/02/16 at 12:00 Sodium Chloride 500 ml @ 500 mls/hr 1X ONCE IV Last administered on 14:10; Start 11/02/16 at 13:00; Stop 11/02/16 at 13:59; Status DC Sodium Chloride 1,000 ml @ 75 mls/hr [id number] IV ; Start 11/02/16 at 13:00; Stop 11/02/16 at 13:25; Status DC Vancomycin HCl 1.75 gm/Sodium Chloride 500 ml @ 250 mls/hr Q18H IV Last administered on 11/06/16 09:13; Start 11/03/16 at 08:00; Stop 11/06/16 at 14:39 ; Status DC Vancomycin HCl 1 each 1X ONCE MC Last administered on 11/04/16 19:30; Start 11/04/16 at 19:30; Stop 11/04/16 at 19:31; Status DC Metoclopramide HCl (Reglan) 10 mg 1X ONCE IV Last administered on 11/03/16 16 :35; Start 11/03/16 at 15:45; Stop 11/03/16 at 15:46; Status DC Furosemide (Lasix) 20 mg 1X ONCE IVP Last administered on 11/04/16 10:54; Start 11/04/16 at 10:30; Stop 11/04/16 at 10:31; Status DC Metoclopramide HCl (Reglan) 10 mg 1X ONCE IV Last administered on 11/04/16 17 :15; Start 11/04/16 at 17:15; Stop 11/04/16 at 17:16; Status DC Magnesium Sulfate/ Dextrose 50 ml @ 25 mls/hr PRN DAILY PRN IV for Mag < 1.7 on am labs; Start 11/05/16 at 08:15 Hydrochlorothiazide (Hydrodiuril) 25 mg DAILY PO Last administered on 12:04; Start 11/05/16 at 09:00; Stop 11/06/16 at 11:08; Status DC Levofloxacin/ Dextrose 150 ml @ 100 mls/hr Q24H IV Last administered on 10:00; Start 11/05/16 at 10:00; Stop 11/06/16 at 14:39; Status DC Sodium Chloride 1,000 ml @ 75 mls/hr [id number] IV Last administered on 04:54; Start 11/05/16 at 15:45; Stop 11/06/16 at 09:26; Status DC Sodium Chloride 1,000 ml @ 75 mls/hr [id number] IV Last administered on 09:38; Start 11/06/16 at 09:30; Stop 11/07/16 at 07:37; Status DC Furosemide (Lasix) 20 mg 1X ONCE IVP Last administered on 11/06/16 09:38; Start 11/06/16 at 09:30; Stop 11/06/16 at 09:31; Status DC Potassium Phosphate 10 mmol/ Sodium Chloride 103.3333 ml @ 51.667 m... Q2H IV Last administered on 11/06/16 20:16; Start 11/06/16 at 13:30; Stop 11/06/16 at 17:29; Status DC Dextrose 1,000 ml @ 50 mls/hr Q20H IV Last administered on 11/07/16 09:40; Start 11/07/16 at 09:15; Stop 11/07/16 at 12:31; Status DC Dextrose 1,000 ml @ 100 mls/hr Q10H IV Last administered on 11/09/16 08:20; Start 11/07/16 at 19:30; Stop 11/09/16 at 14:39; Status DC Furosemide (Lasix) 20 mg 1X ONCE IVP Last administered on 11/08/16 09:17; Start 11/08/16 at 09:30; Stop 11/08/16 at 09:31; Status DC Saliva Substitute (Biotene Moisturizing Mouth) 2 spray PRN Q15MIN PRN PO DRY MOUTH; Start 11/08/16 at 17:30 Cetirizine HCl (ZyrTEC) 10 mg DAILY PO Last administered on 11/12/16 08:57; Start 11/10/16 at 09:00 Diphenhydramine HCl (Benadryl) 25 mg PRN Q6HRS PRN IVP ITCHING Last administered on 11/10/16 05:50; Start 11/09/16 at 10:30; Stop 11/10/16 at 14:00 ; Status DC Linezolid 300 ml @ 300 mls/hr Q12HR IV Last administered on 11/12/16 21:22; Start 11/10/16 at 10:00 Diphenhydramine HCl (Benadryl) 50 mg TID IVP Last administered on 11/12/16 21: 22; Start 11/10/16 at 14:00 Methylprednisolone Sodium Succinate (SOLU-Medrol 40MG VIAL) 40 mg Q12HR IV Last administered on 11/11/16 20:59; Start 11/10/16 at 11:00; Stop 11/12/16 at 08:09; Status DC Furosemide (Lasix) 60 mg 1X ONCE IVP Last administered on 11/11/16 10:26; Start 11/11/16 at 09:30; Stop 11/11/16 at 09:31; Status DC Prednisone (Prednisone) 40 mg DAILY PO Last administered on 11/12/16 08:57; Start 11/12/16 at 09:00 Active Scripts Active Reported Trazodone Hcl 100 Mg Tablet 100 Mg PO HS Polyethylene Glycol 3350 255 Gm Powder 17 Gm PO DAILY Olanzapine 20 Mg Tablet 2 Tab PO QHS Montelukast Sodium Tablet (Montelukast Sodium) 10 Mg Tablet 10 Mg PO HS Meloxicam 15 Mg Tablet 1 Tab PO DAILY Losartan Potassium 50 Mg Tablet 50 Mg PO DAILY Lorazepam 1 Mg Tablet 1 Mg PO HS Lasix (Furosemide) 40 Mg Tablet 40 Mg PO PRN DAILY Hydrochlorothiazide Tablet (Hydrochlorothiazide) 25 Mg Tablet 25 Mg PO DAILY Folic Acid 1 Mg Tablet 1 Mg PO DAILY Fluoxetine Hcl 40 Mg Capsule 40 Mg PO DAILY Famotidine 20 Mg Tablet 20 Mg PO BID Duoneb 0.5-3(2.5) Mg/3 Ml (Albuterol/Ipratropium) 3 Ml Ampul.neb 3 Ml NEB QID Docusate Sodium 100 Mg Capsule 1 Cap PO BID Clonidine Hcl 0.1 Mg Tablet 0.1 Mg PO QID Cetirizine Hcl 10 Mg Tablet 1 Tab PO DAILY Vitals/I & O Vital Sign - Last 24 Hours 11/12/16 11/12/16 11/12/16 11/12/16 10:00 11:00 11:32 12:00 Pulse 93 78 Resp 20 20 B/P (MAP) 145/74 (97) 146/81 (102) Pulse Ox 97 96 96 O2 Delivery Ventilator Ventilator Ventilator Mechanical Ventilator 11/12/16 11/12/16 11/12/16 11/12/16 12:00 12:57 13:00 14:00 Temp 98.3 98.3 Pulse 74 71 74 Resp 20 20 20 B/P (MAP) 141/70 (93) 138/78 (98) 150/74 (99) Pulse Ox 97 98 98 98 O2 Delivery Ventilator Ventilator Ventilator Ventilator 11/12/16 11/12/16 11/12/16 11/12/16 15:00 15:13 16:00 16:00 Temp 98.0 98.0 Pulse 94 84 Resp 20 24 B/P (MAP) 157/83 (107) 167/89 (115) Pulse Ox 96 98 94 O2 Delivery Ventilator Ventilator Ventilator Mechanical Ventilator 11/12/16 11/12/16 11/12/16 11/12/16 16:50 17:00 18:00 19:26 Pulse 74 73 Resp 20 20 B/P (MAP) 154/84 (107) 166/90 (115) Pulse Ox 94 96 97 97 O2 Delivery Ventilator Ventilator Ventilator Ventilator 11/12/16 11/12/16 11/12/16 11/12/16 19:44 20:00 20:00 21:12 Temp 97.9 97.9 Pulse 76 82 68 Resp 20 20 20 B/P (MAP) 176/101 (126) 179/96 (123) 151/82 (105) Pulse Ox 96 97 97 O2 Delivery Ventilator Mechanical Ventilator Ventilator Ventilator 11/12/16 11/12/16 11/12/16 11/13/16 22:00 22:47 23:01 00:00 Temp 97.1 97.1 Pulse 68 71 82 Resp 20 20 20 B/P (MAP) 177/94 (121) 179/95 (123) 174/93 (120) Pulse Ox 97 99 98 90 O2 Delivery Ventilator Ventilator Ventilator Ventilator 11/13/16 11/13/16 11/13/16 11/13/16 00:00 01:04 01:12 02:00 Pulse 68 66 Resp 20 20 B/P (MAP) 149/84 (105) 158/86 (110) Pulse Ox 90 97 97 O2 Delivery Mechanical Ventilator Ventilator Ventilator Ventilator 11/13/16 11/13/16 11/13/16 11/13/16 03:30 03:47 04:00 04:00 Temp 97.6 97.6 Pulse 84 84 Resp 20 20 B/P (MAP) 172/88 (116) 176/90 (118) Pulse Ox 94 93 94 O2 Delivery Ventilator Ventilator Ventilator Mechanical Ventilator 11/13/16 11/13/16 11/13/16 11/13/16 05:30 05:39 05:48 06:08 Pulse 88 82 Resp 20 20 20 B/P (MAP) 177/91 (119) 162/83 (109) Pulse Ox 93 94 95 94 O2 Delivery Ventilator Ventilator Ventilator Ventilator 11/13/16 11/13/16 11/13/16 11/13/16 06:31 07:00 07:58 08:00 Temp 97.9 97.9 Pulse 69 73 Resp 19 19 19 B/P (MAP) 155/83 (107) 154/80 (104) Pulse Ox 96 96 96 98 O2 Delivery Ventilator Ventilator Ventilator Ventilator 11/13/16 09:00 Pulse 78 Resp 19 B/P (MAP) 156/82 (106) Pulse Ox 95 O2 Delivery Ventilator Intake and Output 11/12/16 11/12/16 11/13/16 15:00 23:00 07:00 Intake Total 900 ml 2049.32 ml 2167.8 ml Output Total 1200 ml 1305 ml 1360 ml Balance -300 ml 744.32 ml 807.8 ml ERYN RAMSEY MD Nov 13, 2016 09:18
[2016-11-13] MEDS: CETIRIZINE HCL 10 MG TABLET. PO SCH (09:53)
[2016-11-13] MEDS: CHLORHEXIDINE 0.12% 15 ML MOUTHWASH. MM SCH ×2 (09:54→21:42)
[2016-11-13] MEDS: predniSONE 20 MG TABLET PO SCH (09:54)
[2016-11-13] MEDS: diphenhydrAMINE 50 MG/ML VIAL IVP SCH ×3 (09:54→21:19)
[2016-11-13 09:57] LABS: BASO # 0.3 x10^3/uL (0.0-0.2); BASO % 1 % (0-3); EOS % 1 % (0-3); HEMATOCRIT 25.5 % (36.0-47.0); LYMPH # 5.8 x10^3/uL (1.0-4.8); LYMPH % 27 % (24-48); MEAN CORPUSCULAR HEMOGLOBIN 28 pg (25-35); MEAN CORPUSCULAR HGB CONC 31 g/dL (31-37); MEAN CORPUSCULAR VOLUME 90 fL (79-100); MONO % 9 % (0-9); NEUT % 62 % (31-73); PLATELET COUNT 462 x10^3/uL (140-400); RED BLOOD COUNT 2.83 x10^6/uL (3.50-5.40); RED CELL DISTRIBUTION WIDTH 16.8 % (11.5-14.5); WHITE BLOOD COUNT 21.2 x10^3/uL (4.0-11.0)
--- NOTE | 2016-11-13 09:58 | PDOC ---
PULMONARY PROGRESS NOTES Subjective PT BACK FROM TRACH NOT FOLLOWING COMMANDS Vitals Vital Signs Date Time Temp Pulse Resp B/P (MAP) Pulse Ox O2 Delivery O2 Flow Rate FiO2 11/13/16 09:00 78 19 156/82 (106) 95 Ventilator 11/13/16 08:00 97.9 97.9 HEENT: Other Lungs: Crackles Cardiovascular: S1, S2 Abdomen: Soft, Non-tender Extremities: Other (edema) Skin: Warm Labs Laboratory Tests Test 11/11/16 23:58 11/12/16 04:00 11/12/16 08:00 11/13/16 00:24 Glucose (Fingerstick) 163 mg/dL (70-99) 134 mg/dL (70-99) Prothrombin Time 13.8 SEC (11.7-14.0) Prothromb Time International Ratio 1.1 (0.8-1.1) Activated Partial Thromboplast Time 28 SEC (24-38) Sodium Level 140 mmol/L (136-145) Potassium Level 4.3 mmol/L (3.5-5.1) Chloride Level 103 mmol/L (98-107) Carbon Dioxide Level 29 mmol/L (21-32) Anion Gap 8 (6-14) Blood Urea Nitrogen 21 mg/dL (7-20) Creatinine 0.8 mg/dL (0.6-1.0) Estimated GFR (Cockcroft-Gault) 87.7 Glucose Level 173 mg/dL (70-99) Calcium Level 9.4 mg/dL (8.5-10.1) Phosphorus Level 2.8 mg/dL (2.6-4.7) Creatine Kinase 186 U/L (26-192) Albumin 2.2 g/dL (3.4-5.0) O2 Saturation 90 % (92-99) Arterial Blood pH 7.42 (7.35-7.45) Arterial Blood pCO2 at Patient Temp 41 mmHg (35-46) Arterial Blood pO2 at Patient Temp 65 mmHg (65-108) Arterial Blood HCO3 26 mmol/L (21-28) Arterial Blood Base Excess 1 mmol/L (-3-3) FiO2 30 Test 11/13/16 06:20 11/13/16 08:00 Glucose (Fingerstick) 128 mg/dL (70-99) O2 Saturation 89 % (92-99) Arterial Blood pH 7.45 (7.35-7.45) Arterial Blood pCO2 at Patient Temp 37 mmHg (35-46) Arterial Blood pO2 at Patient Temp 63 mmHg (65-108) Arterial Blood HCO3 25 mmol/L (21-28) Arterial Blood Base Excess 1 mmol/L (-3-3) FiO2 40 Laboratory Tests Test 11/13/16 00:24 11/13/16 06:20 11/13/16 08:00 Glucose (Fingerstick) 134 mg/dL (70-99) 128 mg/dL (70-99) O2 Saturation 89 % (92-99) Arterial Blood pH 7.45 (7.35-7.45) Arterial Blood pCO2 at Patient Temp 37 mmHg (35-46) Arterial Blood pO2 at Patient Temp 63 mmHg (65-108) Arterial Blood HCO3 25 mmol/L (21-28) Arterial Blood Base Excess 1 mmol/L (-3-3) FiO2 40 Medications Active Scripts Medications Dose Route/Sig Max Daily Dose Days Date Category Trazodone Hcl 100 Mg Tablet 100 Mg PO HS 10/31/16 Reported Polyethylene Glycol 3350 255 Gm Powder 17 Gm PO DAILY 10/31/16 Reported Olanzapine 20 Mg Tablet 2 Tab PO QHS 10/31/16 Reported Montelukast Sodium Tablet (Montelukast Sodium) 10 Mg Tablet 10 Mg PO HS 10/31/16 Reported Meloxicam 15 Mg Tablet 1 Tab PO DAILY 10/31/16 Reported Losartan Potassium 50 Mg Tablet 50 Mg PO DAILY 10/31/16 Reported Lorazepam 1 Mg Tablet 1 Mg PO HS 10/31/16 Reported Lasix (Furosemide) 40 Mg Tablet 40 Mg PO PRN DAILY 10/31/16 Reported Hydrochlorothiazide Tablet (Hydrochlorothiazide) 25 Mg Tablet 25 Mg PO DAILY 10/31/16 Reported Folic Acid 1 Mg Tablet 1 Mg PO DAILY 10/31/16 Reported Fluoxetine Hcl 40 Mg Capsule 40 Mg PO DAILY 10/31/16 Reported Famotidine 20 Mg Tablet 20 Mg PO BID 10/31/16 Reported Duoneb 0.5-3(2.5) Mg/3 Ml (Albuterol/Ipratropium) 3 Ml Ampul.neb 3 Ml NEB QID 10/31/16 Reported Docusate Sodium 100 Mg Capsule 1 Cap PO BID 10/31/16 Reported Clonidine Hcl 0.1 Mg Tablet 0.1 Mg PO QID 10/31/16 Reported Cetirizine Hcl 10 Mg Tablet 1 Tab PO DAILY 10/31/16 Reported Impression . A/C HYPERCAPNIA HYPOXEMIC RESP FAILURE MULTIFACTORIAL FAILED BIPAP INTUBATED ACUTE HEART FAILURE SUSPECT DIASTOLIC TALHA/OHS ACUTE RENAL FAILURE MORBID OBESITY FEVER POSSIBLE PNEUMONIA GRAM NEG/GRAM POS POSSIBLE SEPSIS/FEVER UTI KLEB s/p RHABDO LARYNGEAL EDEMA Plan . S/P TRACH CONTINUE SEDATION FOR NOW TRANSFER TO LT[facility] SOON WILL CONTINUE SUPPORT FOLLOW NEPHRO INPUT ANTIBX PER ID DVT AND GI PROPH NUTRITION PER TF CLIVE MEDRANO MD Nov 13, 2016 09:58
[2016-11-13 10:12] LABS: ALBUMIN 2.4 g/dL (3.4-5.0); ALBUMIN/GLOBULIN RATIO 0.6 (1.0-1.7); CALCIUM 8.4 mg/dL (8.5-10.1); CREATININE 0.8 mg/dL (0.6-1.0); GFR 87.7; MAGNESIUM 1.8 mg/dL (1.8-2.4); PHOSPHORUS 2.3 mg/dL (2.6-4.7); POTASSIUM 3.3 mmol/L (3.5-5.1); TOTAL BILIRUBIN 0.3 mg/dL (0.2-1.0); TOTAL PROTEIN 6.3 g/dL (6.4-8.2)
[2016-11-13] MEDS ORDERED: SEVOFLURANE 61 TO 120 MINUTES. IH ONE (12:24)
[2016-11-13] MEDS ORDERED: VECURONIUM BOLUS 10 MG VIAL. IV ONE (12:24)
[2016-11-13] MEDS ORDERED: MIDAZOLAM HCL/PF 2 MG/2 ML VIAL. ONE (12:24)
[2016-11-13] MEDS ORDERED: fentaNYL PF VIAL 100 MCG/2 ML VIAL ONE ×2 (12:24→13:33)
--- NOTE | 2016-11-13 13:58 | PDOC2 ---
PALLIATIVE CARE Palliative Care Note Palliative Care 1145 Met with daughter Susana. Patient opens eyes to stimulation. does not follow commands. Remains on Vent, Fentanyl and Versed gtt. Reviewed medical condition and discussed option for tracheostomy. Discussed benefit of tracheostomy for support of ventilation necessary to treat COPD, pneumonia. Risk of tracheostomy incudes bleeding, infection. Discussed risk of leaving ET tube in place longer. Informed that tube can cause damage to trachea if left in too long. Susana agrees to tracheostomy--"there is not other option" Consent signed. Encouraged Susana to discuss any further concern with Dr. Bray prior to procedure. Consent for tracheostomy signed and witnessed. LINK OTT Nov 13, 2016 13:58
--- NOTE | 2016-11-13 15:36 | PDOC ---
BRIEF OPERATIVE NOTE Date: Nov 13, 2016 Pre-Op Diagnosis Ventilator dependent respiratory failure Chronic obstructive pulmonary disease Pneumonia Angiodedema Morbid obesity Post-Op Diagnosis Ventilator dependent respiratory failure Chronic obstructive pulmonary disease Pneumonia Angiodedema Morbid obesity Procedure Performed Tracheostomy Surgeon Kendrick Melvin MD Colorer LANIE Alvarez Anesthesiologist Herbert Roman MD Anesthesia Type: General Blood Loss 5 mls IV Fluid N/A Urine Output N/A Specimens Obtained None Findings Large anterior jugular veins Thyroid goiter Complications None OPerative Note 8fr, cuffed, non fenestrated tracheostomy tube KENDRICK MELVIN MD Nov 13, 2016 15:36
--- NOTE | 2016-11-13 15:38 | PDOC4 ---
Operative Note Operative Note Date Nov 13, 2016 Preoperatuve diagnosis Ventilator dependent respiratory failure Chronic obstructive pulmonary disease Pneumonia Angiodedema Morbid obesity Postoperative diagnosis Ventilator dependent respiratory failure Chronic obstructive pulmonary disease Pneumonia Angiodedema Morbid obesity Procedure Tracheostomy Surgeon Kendrick Melvin MD Bindery Cutter Operator LANIE Alvarez Anesthesiologist Herbert Roman MD Anesthesia Type General Blood loss 5 mls IV fluids N/A Urine output N/A Specimens obtained None Findings Large anterior jugular veins Thyroid goiter Complications None Comments 8fr, cuffed, non fenestrated tracheostomy tube Indications Ms Cervantes is a 61-year-old female with multiple comorbidities including COPD, schizophrenia, morbid obesity, who lives in a mental health institution, who was admitted on October 31, 2016 with respiratory failure. She has failed BiPAP and was intubated. She has been unable to wean from the ventilator ever since. Her course has been complicated by sepsis/pneumonia for which she is on antibiotics and acute on chronic renal failure. She also developed angioedema, which is slowly improving. She is currently normotensive. She is on FiO2 40% and PEEP of 6. A tracheostomy was indicated. The risks, benefits and limitations of procedure were explained to the patient's family who agreed to proceed. Informed consent was obtained. Operation The patient's ID was confirmed using 2 unique identifies. The patient was transferred to the OR intubated from the ICU. He was placed supine on the operating table with both arms tucked. A shoulder roll was also placed to facilitate neck extension. Neck landmarks were extremely difficult to identify owing to her extreme obesity. The patient's neck was prepped and draped in the usual sterile surgical fashion. The patient has been receiving therapeutic antibiotics, thus prophylaxis was not indicated. A timeout was then performed. A 3 cm transverse incision in the skin crease just below the level of the cricoid cartilage was made. The incision was deepened through the subcutaneous tissues followed by the platysma. I came across 2 large anterior jugular veins which were both suture ligated. The strap muscles were bluntly at the median raphe. Of note, the patient had a relatively large and vascular goiter and extra time was spent on hemostasis around the thyroid gland. The isthmus of the thyroid was identified and divided using electrocautery. The pretracheal fascia was incised. Hemostasis of the thyroid gland and surrounding tissues was confirmed. I clearly identified the cricoid cartilage, the first, second and third tracheal rings. I then asked anesthesia to deflate the endotracheal tube balloon. The first and second tracheal rings anteriorly were then excised. The endotracheal tube was slowly withdrawn and a 8 fr cuffed, non fenestrated tracheostomy tube was inserted with ease. The inner cannula was placed and secured. The tracheostomy was connected to the ventilator with excellent tidal volume return. Vertical mattress sutures with a 2-0 nylon stitch were used to reapproximate the incision on the lateral aspects of the tracheostomy. The tracheostomy was secured with four 2-0 nylon's and a trach collar. At the end of the procedure, the instrument, sponge and needle counts were correct. The patient was transferred back to the ICU in stable condition. KENDRICK MELVIN MD Nov 13, 2016 15:38
[2016-11-13] MEDS: POTASSIUM CHLORIDE 20MEQ 50 ML IV SCH ×2 (17:02→20:42)
[2016-11-13] MEDS: MIDAZOLAM PREMIX 100 ML IV PRN (17:18)
[2016-11-13] MEDS: FAMOTIDINE 20 MG/2 ML VIAL IVP SCH (21:22)
[2016-11-14] VITALS (24 sets, daily range): BP systolic 117–171; BP diastolic 67–91
[2016-11-14] MEDS: PIPERACILLIN/TAZOBACTAM 4.5 GM in IV NORMAL SALINE 100ML 100 ML IV SCH ×4 (00:47→17:00)
[2016-11-14] MEDS: MIDAZOLAM PREMIX 100 ML IV PRN (02:29)
--- NOTE | 2016-11-14 04:31 | RAD ---
AP abdomen x-ray HISTORY: Nasogastric intubation. FINDINGS: Radiopaque tip of the enteric feeding tube projects at the left abdomen general radiographic region of the stomach. Consolidative opacity air bronchograms left lower lobe. Right lateral abdomen and pelvis outside the [id number]. No dilated bowel loops evident. Abdominal aortic calcified plaque. Bones are unremarkable. IMPRESSION: Enteric feeding tube tip within the stomach. Left lower lobe infiltrate. Electronically signed by: Cuauhtemoc Diaz MD (11/14/2016 4:27 AM) [facility]
[2016-11-14] MEDS: HEPARIN PF for SUB-Q USE 5,000 UNIT/0.5 ML VIAL. SQ SCH ×3 (05:46→21:30)
--- NOTE | 2016-11-14 07:39 | PDOC ---
Infectious Disease Note Subjective Subjective s/p trach, on vent ROS ROS unable to do Vital Sign Vital Signs Vital Signs Date Time Temp Pulse Resp B/P (MAP) Pulse Ox O2 Delivery O2 Flow Rate FiO2 11/14/16 06:00 78 28 161/79 (106) 95 11/14/16 04:00 Ventilator 11/14/16 04:00 98.2 98.2 Physical Exam PHYSICAL EXAM GENERAL: NAD, Alert on vent HEENT: PERRL, OC/OP trach NECK: Supple, no JVD, no LN LUNGS: Clear HEART: S1S2, no gallop, no murmur ABD: Soft, NT, no organomegaly, no rebound EXT: No edema, no cyanosis PIPELAYER: Alert, on vent SKIN: No rash IV: ok Labs Lab Laboratory Tests Test 11/13/16 08:00 11/13/16 09:45 11/13/16 18:34 O2 Saturation 89 % (92-99) Arterial Blood pH 7.45 (7.35-7.45) Arterial Blood pCO2 at Patient Temp 37 mmHg (35-46) Arterial Blood pO2 at Patient Temp 63 mmHg (65-108) Arterial Blood HCO3 25 mmol/L (21-28) Arterial Blood Base Excess 1 mmol/L (-3-3) FiO2 40 White Blood Count 21.2 x10^3/uL (4.0-11.0) Red Blood Count 2.83 x10^6/uL (3.50-5.40) Hemoglobin 8.0 g/dL (12.0-15.5) Hematocrit 25.5 % (36.0-47.0) Mean Corpuscular Volume 90 fL (79-100) Mean Corpuscular Hemoglobin 28 pg (25-35) Mean Corpuscular Hemoglobin Concent 31 g/dL (31-37) Red Cell Distribution Width 16.8 % (11.5-14.5) Platelet Count 462 x10^3/uL (140-400) Neutrophils (%) (Auto) 62 % (31-73) Lymphocytes (%) (Auto) 27 % (24-48) Monocytes (%) (Auto) 9 % (0-9) Eosinophils (%) (Auto) 1 % (0-3) Basophils (%) (Auto) 1 % (0-3) Neutrophils # (Auto) 13.0 x10^3uL (1.8-7.7) Lymphocytes # (Auto) 5.8 x10^3/uL (1.0-4.8) Monocytes # (Auto) 2.0 x10^3/uL (0.0-1.1) Eosinophils # (Auto) 0.2 x10^3/uL (0.0-0.7) Basophils # (Auto) 0.3 x10^3/uL (0.0-0.2) Sodium Level 143 mmol/L (136-145) Potassium Level 3.3 mmol/L (3.5-5.1) Chloride Level 107 mmol/L (98-107) Carbon Dioxide Level 30 mmol/L (21-32) Anion Gap 6 (6-14) Blood Urea Nitrogen 19 mg/dL (7-20) Creatinine 0.8 mg/dL (0.6-1.0) Estimated GFR (Cockcroft-Gault) 87.7 BUN/Creatinine Ratio 24 (6-20) Glucose Level 112 mg/dL (70-99) Calcium Level 8.4 mg/dL (8.5-10.1) Phosphorus Level 2.3 mg/dL (2.6-4.7) Magnesium Level 1.8 mg/dL (1.8-2.4) Total Bilirubin 0.3 mg/dL (0.2-1.0) Aspartate Amino Transf (AST/SGOT) 48 U/L (15-37) Alanine Aminotransferase (ALT/SGPT) 81 U/L (14-59) Alkaline Phosphatase 114 U/L (46-116) Total Protein 6.3 g/dL (6.4-8.2) Albumin 2.4 g/dL (3.4-5.0) Albumin/Globulin Ratio 0.6 (1.0-1.7) Glucose (Fingerstick) 164 mg/dL (70-99) Micro BC neg URINE CULTURE Final Final report URINE CULTURE RES 1 Final Klebsiella pneumoniae Greater than 100,000 colony forming units per mL ANTIMICROBIAL SUSCEPTIBILITY Final Comment S = Susceptible; I = Intermediate; R = Resistant P = Positive; N = Negative MICS are expressed in micrograms per mL Antibiotic RSLT#1 RSLT#2 RSLT#3 RSLT#4 Amoxicillin/Clavulanic Acid S Ampicillin R Cefepime S Ceftriaxone S Cefuroxime S Cephalothin S Ciprofloxacin S Ertapenem S Gentamicin S Imipenem S Levofloxacin S Nitrofurantoin S Piperacillin S Tetracycline S Tobramycin S Trimethoprim/Sulfa S Performed at: [address] [id number] Cert Pharmacy Tech: Yumiko Merritt MD, Phone: [phone] Objective Assessment Klebsiella UTI, POA Fever, better Leukocytosis, possibly reactive, c.diff negative Respiratory failure Ángel pulmonary infiltrate, CHF vs pneumonia Acute renal failure, improving Rhabdomyolysis, CK trending down Schizophrenia Plan Plan of Care d/c Zyvox,, cont zosyn on steroids CAITY SMITH MD Nov 14, 2016 07:39
[2016-11-14 08:28] LABS: CALCIUM 8.5 mg/dL (8.5-10.1); CREATININE 0.8 mg/dL (0.6-1.0); GFR 87.7; POTASSIUM 3.7 mmol/L (3.5-5.1)
[2016-11-14] MEDS: IPRATRPIUM/ALBUTEROL 0.5/2.5MG 3 ML NEBU. NEB SCH ×4 (08:29→19:36)
[2016-11-14 08:51] LABS: HCO3 ABG 25 mmol/L (21-28); PCO2 ABG 36 mmHg (35-46); PH ABG 7.45 (7.35-7.45); PO2 ABG 63 mmHg (65-108); SAT O2 ABG 90 % (92-99)
[2016-11-14 08:54] LABS: FIO2 ABG 40
[2016-11-14] MEDS: diphenhydrAMINE 50 MG/ML VIAL IVP SCH ×3 (09:32→20:11)
[2016-11-14] MEDS: CETIRIZINE HCL 10 MG TABLET. PO SCH (09:32)
[2016-11-14] MEDS: CHLORHEXIDINE 0.12% 15 ML MOUTHWASH. MM SCH (09:32)
[2016-11-14] MEDS: predniSONE 20 MG TABLET PO SCH (09:32)
--- NOTE | 2016-11-14 09:41 | PDOC ---
PROGRESS NOTES Chief Complaint Chief Complaint Acute hypoxic and hypercapnic resp failure with HAP, on vent with trach Fever and leukocytosis: urinary tract infection, present on admission Healthcare associated pneumonia possible gram-negative rods COPD morbid obesity, BMI 53 chronic diastolic Congestive heart failure , LV ejection fraction 65% Ckd with jerrod, vasomotor HX of schizophrenia, was in psych facility before admit here HTN, chronic tobaccoism Elevated CPK, unclear etiology Hypernatremia hypophosphatemia moderate malnutrition in morbid obesity diffuse edema, chf and malnutrition History of Present Illness History of Present Illness Back on tube feeds, dobhoff trach, OP more clear today awake, following commands Family does not want PEG consider Trach this PM, or per CT surg avail Vitals Vitals Vital Signs Date Time Temp Pulse Resp B/P (MAP) Pulse Ox O2 Delivery O2 Flow Rate FiO2 11/14/16 09:32 20 95 Ventilator 3.0 11/14/16 09:00 73 143/76 (98) 11/14/16 07:00 98.2 98.2 Physical Exam Physical Exam trach, awakening General: Cooperative, No acute distress, Other (sedated) Heart: Regular rate, Normal S1, Normal S2 Lungs: Crackles Abdomen: Soft, No tenderness Extremities: Other (edema) Skin: No significant lesion Labs LABS Laboratory Tests Test 11/13/16 09:45 11/13/16 18:34 11/14/16 08:00 11/14/16 08:30 White Blood Count 21.2 x10^3/uL (4.0-11.0) Red Blood Count 2.83 x10^6/uL (3.50-5.40) Hemoglobin 8.0 g/dL (12.0-15.5) Hematocrit 25.5 % (36.0-47.0) Mean Corpuscular Volume 90 fL (79-100) Mean Corpuscular Hemoglobin 28 pg (25-35) Mean Corpuscular Hemoglobin Concent 31 g/dL (31-37) Red Cell Distribution Width 16.8 % (11.5-14.5) Platelet Count 462 x10^3/uL (140-400) Neutrophils (%) (Auto) 62 % (31-73) Lymphocytes (%) (Auto) 27 % (24-48) Monocytes (%) (Auto) 9 % (0-9) Eosinophils (%) (Auto) 1 % (0-3) Basophils (%) (Auto) 1 % (0-3) Neutrophils # (Auto) 13.0 x10^3uL (1.8-7.7) Lymphocytes # (Auto) 5.8 x10^3/uL (1.0-4.8) Monocytes # (Auto) 2.0 x10^3/uL (0.0-1.1) Eosinophils # (Auto) 0.2 x10^3/uL (0.0-0.7) Basophils # (Auto) 0.3 x10^3/uL (0.0-0.2) Sodium Level 143 mmol/L (136-145) 143 mmol/L (136-145) Potassium Level 3.3 mmol/L (3.5-5.1) 3.7 mmol/L (3.5-5.1) Chloride Level 107 mmol/L (98-107) 106 mmol/L (98-107) Carbon Dioxide Level 30 mmol/L (21-32) 28 mmol/L (21-32) Anion Gap 6 (6-14) 9 (6-14) Blood Urea Nitrogen 19 mg/dL (7-20) 15 mg/dL (7-20) Creatinine 0.8 mg/dL (0.6-1.0) 0.8 mg/dL (0.6-1.0) Estimated GFR (Cockcroft-Gault) 87.7 87.7 BUN/Creatinine Ratio 24 (6-20) Glucose Level 112 mg/dL (70-99) 101 mg/dL (70-99) Calcium Level 8.4 mg/dL (8.5-10.1) 8.5 mg/dL (8.5-10.1) Phosphorus Level 2.3 mg/dL (2.6-4.7) Magnesium Level 1.8 mg/dL (1.8-2.4) Total Bilirubin 0.3 mg/dL (0.2-1.0) Aspartate Amino Transf (AST/SGOT) 48 U/L (15-37) Alanine Aminotransferase (ALT/SGPT) 81 U/L (14-59) Alkaline Phosphatase 114 U/L (46-116) Total Protein 6.3 g/dL (6.4-8.2) Albumin 2.4 g/dL (3.4-5.0) Albumin/Globulin Ratio 0.6 (1.0-1.7) Glucose (Fingerstick) 164 mg/dL (70-99) O2 Saturation 90 % (92-99) Arterial Blood pH 7.45 (7.35-7.45) Arterial Blood pCO2 at Patient Temp 36 mmHg (35-46) Arterial Blood pO2 at Patient Temp 63 mmHg (65-108) Arterial Blood HCO3 25 mmol/L (21-28) Arterial Blood Base Excess 1 mmol/L (-3-3) FiO2 40 Review of Systems Review of Systems unable Assessment and Plan Assessmemt and Plan screen for LTAC, may take some time Problems: Comment Review of Relevant I have reviewed the following items asif (where applicable) has been applied. Labs Laboratory Tests Test 11/13/16 00:24 11/13/16 05:45 11/13/16 06:20 11/13/16 08:00 Glucose (Fingerstick) 134 mg/dL (70-99) 128 mg/dL (70-99) Clostridium difficile Toxin (PCR) Negative (Negative) O2 Saturation 89 % (92-99) Arterial Blood pH 7.45 (7.35-7.45) Arterial Blood pCO2 at Patient Temp 37 mmHg (35-46) Arterial Blood pO2 at Patient Temp 63 mmHg (65-108) Arterial Blood HCO3 25 mmol/L (21-28) Arterial Blood Base Excess 1 mmol/L (-3-3) FiO2 40 Test 11/13/16 09:45 11/13/16 18:34 11/14/16 08:00 11/14/16 08:30 White Blood Count 21.2 x10^3/uL (4.0-11.0) Red Blood Count 2.83 x10^6/uL (3.50-5.40) Hemoglobin 8.0 g/dL (12.0-15.5) Hematocrit 25.5 % (36.0-47.0) Mean Corpuscular Volume 90 fL (79-100) Mean Corpuscular Hemoglobin 28 pg (25-35) Mean Corpuscular Hemoglobin Concent 31 g/dL (31-37) Red Cell Distribution Width 16.8 % (11.5-14.5) Platelet Count 462 x10^3/uL (140-400) Neutrophils (%) (Auto) 62 % (31-73) Lymphocytes (%) (Auto) 27 % (24-48) Monocytes (%) (Auto) 9 % (0-9) Eosinophils (%) (Auto) 1 % (0-3) Basophils (%) (Auto) 1 % (0-3) Neutrophils # (Auto) 13.0 x10^3uL (1.8-7.7) Lymphocytes # (Auto) 5.8 x10^3/uL (1.0-4.8) Monocytes # (Auto) 2.0 x10^3/uL (0.0-1.1) Eosinophils # (Auto) 0.2 x10^3/uL (0.0-0.7) Basophils # (Auto) 0.3 x10^3/uL (0.0-0.2) Sodium Level 143 mmol/L (136-145) 143 mmol/L (136-145) Potassium Level 3.3 mmol/L (3.5-5.1) 3.7 mmol/L (3.5-5.1) Chloride Level 107 mmol/L (98-107) 106 mmol/L (98-107) Carbon Dioxide Level 30 mmol/L (21-32) 28 mmol/L (21-32) Anion Gap 6 (6-14) 9 (6-14) Blood Urea Nitrogen 19 mg/dL (7-20) 15 mg/dL (7-20) Creatinine 0.8 mg/dL (0.6-1.0) 0.8 mg/dL (0.6-1.0) Estimated GFR (Cockcroft-Gault) 87.7 87.7 BUN/Creatinine Ratio 24 (6-20) Glucose Level 112 mg/dL (70-99) 101 mg/dL (70-99) Calcium Level 8.4 mg/dL (8.5-10.1) 8.5 mg/dL (8.5-10.1) Phosphorus Level 2.3 mg/dL (2.6-4.7) Magnesium Level 1.8 mg/dL (1.8-2.4) Total Bilirubin 0.3 mg/dL (0.2-1.0) Aspartate Amino Transf (AST/SGOT) 48 U/L (15-37) Alanine Aminotransferase (ALT/SGPT) 81 U/L (14-59) Alkaline Phosphatase 114 U/L (46-116) Total Protein 6.3 g/dL (6.4-8.2) Albumin 2.4 g/dL (3.4-5.0) Albumin/Globulin Ratio 0.6 (1.0-1.7) Glucose (Fingerstick) 164 mg/dL (70-99) O2 Saturation 90 % (92-99) Arterial Blood pH 7.45 (7.35-7.45) Arterial Blood pCO2 at Patient Temp 36 mmHg (35-46) Arterial Blood pO2 at Patient Temp 63 mmHg (65-108) Arterial Blood HCO3 25 mmol/L (21-28) Arterial Blood Base Excess 1 mmol/L (-3-3) FiO2 40 Laboratory Tests Test 11/13/16 09:45 11/13/16 18:34 11/14/16 08:00 11/14/16 08:30 White Blood Count 21.2 x10^3/uL (4.0-11.0) Red Blood Count 2.83 x10^6/uL (3.50-5.40) Hemoglobin 8.0 g/dL (12.0-15.5) Hematocrit 25.5 % (36.0-47.0) Mean Corpuscular Volume 90 fL (79-100) Mean Corpuscular Hemoglobin 28 pg (25-35) Mean Corpuscular Hemoglobin Concent 31 g/dL (31-37) Red Cell Distribution Width 16.8 % (11.5-14.5) Platelet Count 462 x10^3/uL (140-400) Neutrophils (%) (Auto) 62 % (31-73) Lymphocytes (%) (Auto) 27 % (24-48) Monocytes (%) (Auto) 9 % (0-9) Eosinophils (%) (Auto) 1 % (0-3) Basophils (%) (Auto) 1 % (0-3) Neutrophils # (Auto) 13.0 x10^3uL (1.8-7.7) Lymphocytes # (Auto) 5.8 x10^3/uL (1.0-4.8) Monocytes # (Auto) 2.0 x10^3/uL (0.0-1.1) Eosinophils # (Auto) 0.2 x10^3/uL (0.0-0.7) Basophils # (Auto) 0.3 x10^3/uL (0.0-0.2) Sodium Level 143 mmol/L (136-145) 143 mmol/L (136-145) Potassium Level 3.3 mmol/L (3.5-5.1) 3.7 mmol/L (3.5-5.1) Chloride Level 107 mmol/L (98-107) 106 mmol/L (98-107) Carbon Dioxide Level 30 mmol/L (21-32) 28 mmol/L (21-32) Anion Gap 6 (6-14) 9 (6-14) Blood Urea Nitrogen 19 mg/dL (7-20) 15 mg/dL (7-20) Creatinine 0.8 mg/dL (0.6-1.0) 0.8 mg/dL (0.6-1.0) Estimated GFR (Cockcroft-Gault) 87.7 87.7 BUN/Creatinine Ratio 24 (6-20) Glucose Level 112 mg/dL (70-99) 101 mg/dL (70-99) Calcium Level 8.4 mg/dL (8.5-10.1) 8.5 mg/dL (8.5-10.1) Phosphorus Level 2.3 mg/dL (2.6-4.7) Magnesium Level 1.8 mg/dL (1.8-2.4) Total Bilirubin 0.3 mg/dL (0.2-1.0) Aspartate Amino Transf (AST/SGOT) 48 U/L (15-37) Alanine Aminotransferase (ALT/SGPT) 81 U/L (14-59) Alkaline Phosphatase 114 U/L (46-116) Total Protein 6.3 g/dL (6.4-8.2) Albumin 2.4 g/dL (3.4-5.0) Albumin/Globulin Ratio 0.6 (1.0-1.7) Glucose (Fingerstick) 164 mg/dL (70-99) O2 Saturation 90 % (92-99) Arterial Blood pH 7.45 (7.35-7.45) Arterial Blood pCO2 at Patient Temp 36 mmHg (35-46) Arterial Blood pO2 at Patient Temp 63 mmHg (65-108) Arterial Blood HCO3 25 mmol/L (21-28) Arterial Blood Base Excess 1 mmol/L (-3-3) FiO2 40 Microbiology 7/20/17 Blood Culture - Final, Complete NO GROWTH AFTER 5 DAYS 11/01/16 Sputum Culture - Final, Complete 11/01/16 Sputum Result 1 - Final, Complete 10/31/16 Urine Culture - Final, Complete 10/31/16 Urine Culture Result 1 (ISAIAS) - Final, Complete 10/31/16 Antimicrobic Susceptibility - Final, Complete Medications Current Medications Methylprednisolone Sodium Succinate (SOLU-Medrol 125MG VIAL) 125 mg 1X ONCE IV Last administered on 10/31/16 11:18; Start 10/31/16 at 11:00; Stop 10/31/16 at 11:01; Status DC Albuterol/ Ipratropium (Duoneb) 3 ml 1X ONCE NEB Last administered on 11:00; Start 10/31/16 at 11:00; Stop 10/31/16 at 11:01; Status DC Furosemide (Lasix) 40 mg 1X ONCE IVP Last administered on 10/31/16 11:17; Start 10/31/16 at 11:15; Stop 10/31/16 at 11:16; Status DC Vancomycin HCl (Vanco Per Pharmacy) 1 each PRN DAILY PRN MC SEE COMMENTS Last administered on 11/06/16 10:19; Start 10/31/16 at 11:30; Stop 11/06/16 at 14:40 ; Status DC Piperacillin Sod/ Tazobactam Sod (Zosyn Per Pharmacy) 1 each PRN DAILY PRN MC SEE COMMENTS; Start 10/31/16 at 11:30; Stop 11/02/16 at 08:44; Status DC Levofloxacin/ Dextrose (Levaquin Per Pharmacy) 1 each PRN DAILY PRN MC SEE COMMENTS; Start 10/31/16 at 11:30; Stop 10/31/16 at 12:57; Status DC Vancomycin HCl 2 gm/Sodium Chloride 500 ml @ 250 mls/hr 1X ONCE IV Last administered on 10/31/16 14:30; Start 10/31/16 at 11:30; Stop 10/31/16 at 13:29 ; Status DC Levofloxacin/ Dextrose 150 ml @ 100 mls/hr ONCE ONCE IV Last administered on 10/31/16 12:45; Start 10/31/16 at 11:30; Stop 10/31/16 at 12:59; Status DC Piperacillin Sod/ Tazobactam Sod 3.375 gm/Sodium Chloride 50 ml @ 100 mls/hr ONCE ONCE IV Last administered on 10/31/16 11:38; Start 10/31/16 at 11:45; Stop 10/31/16 at 12:14; Status DC Levofloxacin/ Dextrose 150 ml @ 100 mls/hr Q48H IV Last administered on 10:54; Start 11/02/16 at 10:00; Stop 11/05/16 at 09:18; Status DC Piperacillin Sod/ Tazobactam Sod 3.375 gm/Sodium Chloride 50 ml @ 100 mls/hr Q6HRS IV Last administered on 11/02/16 05:44; Start 10/31/16 at 18:00; Stop at 08:47; Status DC Acetaminophen (Tylenol) 650 mg PRN Q6HRS PRN PO FEVER Last administered on 11/01 20:26; Start 10/31/16 at 15:15; Stop 11/02/16 at 07:45; Status DC Ondansetron HCl (Zofran) 4 mg PRN Q6HRS PRN IV NAUSEA/VOMITING; Start 10/31/16 at 15:15 Morphine Sulfate 2 mg PRN Q2HR PRN IV PAIN Last administered on 11/08/16 06:16 ; Start 10/31/16 at 15:15 Tramadol HCl (Ultram) 50 mg PRN Q6HRS PRN PO PAIN; Start 10/31/16 at 15:15 Hydralazine HCl (Apresoline) 10 mg PRN Q4HRS PRN IVP ELEVATED BP, SEE COMMENTS Last administered on 11/08/16 05:13; Start 10/31/16 at 15:15 Docusate Sodium (Colace) 100 mg PRN DAILY PRN PO CONSTIPATION Last administered on 11/05/16 12:04; Start 10/31/16 at 15:15 Albuterol/ Ipratropium (Duoneb) 3 ml RTQID NEB Last administered on 11/14/16 08 :29; Start 10/31/16 at 16:00 Albuterol Sulfate (Ventolin Neb Soln) 2.5 mg PRN Q4HRS PRN NEB SHORTNESS OF BREATH; Start 10/31/16 at 15:15 Heparin Sodium (Porcine) (Heparin Sq) 5,000 unit Q8HRS SQ Last administered on 11/14/16 05:46; Start 10/31/16 at 22:00 Famotidine (Pepcid) 20 mg QHS IVP Last administered on 11/13/16 21:22; Start 10/31/16 at 21:00 Vancomycin HCl 2 gm/Sodium Chloride 500 ml @ 250 mls/hr Q24H IV Last administered on 11/02/16 14:14; Start 11/01/16 at 14:00; Stop 11/02/16 at 14:24 ; Status DC Vancomycin HCl 1 each 1X ONCE MC Last administered on 11/02/16 13:30; Start 11/02/16 at 13:30; Stop 11/02/16 at 13:31; Status DC Sodium Chloride 1,000 ml @ 80 mls/hr [id number] IV Last administered on 08:27; Start 10/31/16 at 16:15; Stop 11/05/16 at 08:31; Status DC Sodium Chloride 1,000 ml @ 1,000 mls/hr 1X ONCE IV Last administered on 18:04; Start 10/31/16 at 14:00; Stop 10/31/16 at 17:23; Status DC Sodium Chloride 500 ml @ 500 mls/hr 1X ONCE IV Last administered on 17:30; Start 10/31/16 at 17:30; Stop 10/31/16 at 18:29; Status DC Fentanyl Citrate 30 ml @ 0 mls/hr CONT PRN IV PROTOCOL Last administered on 11/14 09:32; Start 10/31/16 at 18:30 Propofol 100 ml @ 0 mls/hr CONT PRN IV PER PROTOCOL Last administered on 19:00; Start 10/31/16 at 18:30 Chlorhexidine Gluconate (Peridex) 15 ml BID MM Last administered on 11/14/16 09 :32; Start 10/31/16 at 21:00 Artificial Tears (Artificial Tears) 1 drop PRN Q1HR PRN OU DRY EYE; Start 10/31 at 18:30 Midazolam HCl 100 ml @ 0 mls/hr CONT PRN IV PER PROTOCOL Last administered on 02:29; Start 10/31/16 at 18:30 Succinylcholine Chloride (Anectine) 200 mg STK-MED ONCE .ROUTE ; Start 10/31/16 at 18:43; Stop 10/31/16 at 18:44; Status DC Midazolam HCl (Versed) 5 mg STK-MED ONCE .ROUTE ; Start 10/31/16 at 18:45; Stop 10/31/16 at 18:46; Status DC Midazolam HCl (Versed) 5 mg 1X ONCE IV Last administered on 10/31/16 19:30; Start 10/31/16 at 19:30; Stop 10/31/16 at 19:31; Status DC Succinylcholine Chloride (Anectine) 200 mg STK-MED ONCE .ROUTE ; Start 10/31/16 at 18:45; Stop 11/01/16 at 08:13; Status DC Furosemide (Lasix) 20 mg 1X ONCE IVP Last administered on 11/01/16 13:48; Start 11/01/16 at 13:30; Stop 11/01/16 at 13:31; Status DC Sodium Chloride 500 ml @ 500 mls/hr 1X ONCE IV Last administered on 23:09; Start 11/01/16 at 23:15; Stop 11/02/16 at 00:14; Status DC Acetaminophen (Tylenol) 650 mg PRN Q6HRS PRN PEG MILD PAIN / TEMP Last administered on 11/05/16 16:39; Start 11/02/16 at 07:45 Piperacillin Sod/ Tazobactam Sod 4.5 gm/Sodium Chloride 100 ml @ 200 mls/hr Q6HRS IV Last administered on 11/14/16 05:45; Start 11/02/16 at 12:00 Sodium Chloride 500 ml @ 500 mls/hr 1X ONCE IV Last administered on 14:10; Start 11/02/16 at 13:00; Stop 11/02/16 at 13:59; Status DC Sodium Chloride 1,000 ml @ 75 mls/hr [id number] IV ; Start 11/02/16 at 13:00; Stop 11/02/16 at 13:25; Status DC Vancomycin HCl 1.75 gm/Sodium Chloride 500 ml @ 250 mls/hr Q18H IV Last administered on 11/06/16 09:13; Start 11/03/16 at 08:00; Stop 11/06/16 at 14:39 ; Status DC Vancomycin HCl 1 each 1X ONCE MC Last administered on 11/04/16 19:30; Start 11/04/16 at 19:30; Stop 11/04/16 at 19:31; Status DC Metoclopramide HCl (Reglan) 10 mg 1X ONCE IV Last administered on 11/03/16 16 :35; Start 11/03/16 at 15:45; Stop 11/03/16 at 15:46; Status DC Furosemide (Lasix) 20 mg 1X ONCE IVP Last administered on 11/04/16 10:54; Start 11/04/16 at 10:30; Stop 11/04/16 at 10:31; Status DC Metoclopramide HCl (Reglan) 10 mg 1X ONCE IV Last administered on 11/04/16 17 :15; Start 11/04/16 at 17:15; Stop 11/04/16 at 17:16; Status DC Magnesium Sulfate/ Dextrose 50 ml @ 25 mls/hr PRN DAILY PRN IV for Mag < 1.7 on am labs; Start 11/05/16 at 08:15 Hydrochlorothiazide (Hydrodiuril) 25 mg DAILY PO Last administered on 12:04; Start 11/05/16 at 09:00; Stop 11/06/16 at 11:08; Status DC Levofloxacin/ Dextrose 150 ml @ 100 mls/hr Q24H IV Last administered on 10:00; Start 11/05/16 at 10:00; Stop 11/06/16 at 14:39; Status DC Sodium Chloride 1,000 ml @ 75 mls/hr [id number] IV Last administered on 04:54; Start 11/05/16 at 15:45; Stop 11/06/16 at 09:26; Status DC Sodium Chloride 1,000 ml @ 75 mls/hr [id number] IV Last administered on 09:38; Start 11/06/16 at 09:30; Stop 11/07/16 at 07:37; Status DC Furosemide (Lasix) 20 mg 1X ONCE IVP Last administered on 11/06/16 09:38; Start 11/06/16 at 09:30; Stop 11/06/16 at 09:31; Status DC Potassium Phosphate 10 mmol/ Sodium Chloride 103.3333 ml @ 51.667 m... Q2H IV Last administered on 11/06/16 20:16; Start 11/06/16 at 13:30; Stop 11/06/16 at 17:29; Status DC Dextrose 1,000 ml @ 50 mls/hr Q20H IV Last administered on 11/07/16 09:40; Start 11/07/16 at 09:15; Stop 11/07/16 at 12:31; Status DC Dextrose 1,000 ml @ 100 mls/hr Q10H IV Last administered on 11/09/16 08:20; Start 11/07/16 at 19:30; Stop 11/09/16 at 14:39; Status DC Furosemide (Lasix) 20 mg 1X ONCE IVP Last administered on 11/08/16 09:17; Start 11/08/16 at 09:30; Stop 11/08/16 at 09:31; Status DC Saliva Substitute (Biotene Moisturizing Mouth) 2 spray PRN Q15MIN PRN PO DRY MOUTH; Start 11/08/16 at 17:30 Cetirizine HCl (ZyrTEC) 10 mg DAILY PO Last administered on 11/14/16 09:32; Start 11/10/16 at 09:00 Diphenhydramine HCl (Benadryl) 25 mg PRN Q6HRS PRN IVP ITCHING Last administered on 11/10/16 05:50; Start 11/09/16 at 10:30; Stop 11/10/16 at 14:00 ; Status DC Linezolid 300 ml @ 300 mls/hr Q12HR IV Last administered on 11/13/16 21:42; Start 11/10/16 at 10:00; Stop 11/14/16 at 07:40; Status DC Diphenhydramine HCl (Benadryl) 50 mg TID IVP Last administered on 11/14/16 09: 32; Start 11/10/16 at 14:00 Methylprednisolone Sodium Succinate (SOLU-Medrol 40MG VIAL) 40 mg Q12HR IV Last administered on 11/11/16 20:59; Start 11/10/16 at 11:00; Stop 11/12/16 at 08:09; Status DC Furosemide (Lasix) 60 mg 1X ONCE IVP Last administered on 11/11/16 10:26; Start 11/11/16 at 09:30; Stop 11/11/16 at 09:31; Status DC Prednisone (Prednisone) 40 mg DAILY PO Last administered on 11/14/16 09:32; Start 11/12/16 at 09:00 Sevoflurane (Ultane) 60 ml STK-MED ONCE IH ; Start 11/13/16 at 12:24; Stop 11/13 at 12:25; Status DC Fentanyl Citrate (Fentanyl 2ml Vial) 100 mcg STK-MED ONCE .ROUTE ; Start at 12:24; Stop 11/13/16 at 12:25; Status DC Midazolam HCl (Versed) 2 mg STK-MED ONCE .ROUTE ; Start 11/13/16 at 12:24; Stop 11/13/16 at 12:25; Status DC Vecuronium [place] (Norcuron Bolus) 10 mg STK-MED ONCE IV ; Start 11/13/16 at 12 :24; Stop 11/13/16 at 12:25; Status DC Fentanyl Citrate (Fentanyl 2ml Vial) 100 mcg STK-MED ONCE .ROUTE ; Start at 13:33; Stop 11/13/16 at 13:34; Status DC Potassium Chloride 50 ml @ 50 mls/hr Q1H IV Last administered on 11/13/16 20: 42; Start 11/13/16 at 16:15; Stop 11/13/16 at 18:14; Status DC Active Scripts Active Reported Trazodone Hcl 100 Mg Tablet 100 Mg PO HS Polyethylene Glycol 3350 255 Gm Powder 17 Gm PO DAILY Olanzapine 20 Mg Tablet 2 Tab PO QHS Montelukast Sodium Tablet (Montelukast Sodium) 10 Mg Tablet 10 Mg PO HS Meloxicam 15 Mg Tablet 1 Tab PO DAILY Losartan Potassium 50 Mg Tablet 50 Mg PO DAILY Lorazepam 1 Mg Tablet 1 Mg PO HS Lasix (Furosemide) 40 Mg Tablet 40 Mg PO PRN DAILY Hydrochlorothiazide Tablet (Hydrochlorothiazide) 25 Mg Tablet 25 Mg PO DAILY Folic Acid 1 Mg Tablet 1 Mg PO DAILY Fluoxetine Hcl 40 Mg Capsule 40 Mg PO DAILY Famotidine 20 Mg Tablet 20 Mg PO BID Duoneb 0.5-3(2.5) Mg/3 Ml (Albuterol/Ipratropium) 3 Ml Ampul.neb 3 Ml NEB QID Docusate Sodium 100 Mg Capsule 1 Cap PO BID Clonidine Hcl 0.1 Mg Tablet 0.1 Mg PO QID Cetirizine Hcl 10 Mg Tablet 1 Tab PO DAILY Vitals/I & O Vital Sign - Last 24 Hours 11/13/16 11/13/16 11/13/16 11/13/16 10:00 10:00 11:00 12:00 Pulse 82 84 Resp 22 22 B/P (MAP) 151/82 (105) 160/76 (104) Pulse Ox 94 95 100 O2 Delivery Ventilator Ventilator Ventilator Trach Collar 11/13/16 11/13/16 11/13/16 11/13/16 12:00 12:35 14:00 14:15 Temp 98.2 98.2 Pulse 90 84 Resp 20 24 B/P (MAP) 158/80 (106) 158/82 (107) Pulse Ox 100 96 94 92 O2 Delivery Ventilator Ventilator Ventilator Ventilator 11/13/16 11/13/16 11/13/16 11/13/16 15:00 15:47 16:00 16:00 Temp 97.8 97.8 Pulse 86 86 Resp 22 19 B/P (MAP) 166/86 (112) 165/82 (109) Pulse Ox 94 94 95 O2 Delivery Ventilator Ventilator Ventilator Trach Collar 11/13/16 11/13/16 11/13/16 11/13/16 17:00 17:18 18:00 19:00 Pulse 82 82 82 Resp 20 20 19 19 B/P (MAP) 177/90 (119) 174/88 (116) 174/88 (116) Pulse Ox 95 95 95 94 O2 Delivery Ventilator Ventilator Ventilator 11/13/16 11/13/16 11/13/16 11/13/16 19:19 20:00 20:00 21:00 Temp 98.0 98.0 Pulse 84 Resp 20 B/P (MAP) 148/80 (102) Pulse Ox 94 97 95 O2 Delivery Ventilator Mechanical Ventilator Ventilator 11/13/16 11/13/16 11/13/16 11/13/16 21:00 22:00 23:00 23:15 Pulse 82 84 72 Resp 26 23 30 B/P (MAP) 163/85 (111) 148/80 (102) 155/83 (107) Pulse Ox 94 95 97 97 O2 Delivery Ventilator 11/13/16 11/14/16 11/14/16 11/14/16 23:59 00:00 01:00 01:21 Temp 98.2 98.2 Pulse 70 72 Resp 30 20 20 B/P (MAP) 153/79 (103) 152/88 (109) Pulse Ox 97 97 O2 Delivery Mechanical Ventilator Ventilator 11/14/16 11/14/16 11/14/16 11/14/16 01:25 01:51 02:00 03:00 Pulse 68 68 Resp 16 20 19 B/P (MAP) 164/87 (112) 166/91 (116) Pulse Ox 97 95 97 95 O2 Delivery Ventilator Ventilator 11/14/16 11/14/16 11/14/16 11/14/16 04:00 04:00 04:00 05:00 Temp 98.2 98.2 Pulse 82 68 Resp 27 28 B/P (MAP) 171/88 (115) 150/80 (103) Pulse Ox 93 95 97 O2 Delivery Mechanical Ventilator Ventilator 11/14/16 11/14/16 11/14/16 11/14/16 06:00 07:00 08:00 08:00 Temp 98.2 98.2 Pulse 78 77 78 Resp 28 20 28 B/P (MAP) 161/79 (106) 140/75 (96) 146/76 (99) Pulse Ox 95 96 95 O2 Delivery Ventilator Mechanical Ventilator Ventilator 11/14/16 11/14/16 11/14/16 08:29 09:00 09:32 Pulse 73 Resp 20 20 B/P (MAP) 143/76 (98) Pulse Ox 95 95 95 O2 Delivery Ventilator Ventilator Ventilator O2 Flow Rate 3.0 Intake and Output 11/13/16 11/13/16 11/14/16 15:00 23:00 07:00 Intake Total 400 ml 678 ml 468.89 ml Output Total 1450 ml 1300 ml 505 ml Balance -1050 ml -622 ml -36.11 ml ERYN RAMSEY MD Nov 14, 2016 09:41
--- NOTE | 2016-11-14 12:48 | PDOC ---
PULMONARY PROGRESS NOTES Subjective PT AWAKE FOLLOW COMMANDS Vitals Vital Signs Date Time Temp Pulse Resp B/P (MAP) Pulse Ox O2 Delivery O2 Flow Rate FiO2 11/14/16 12:22 95 Ventilator 11/14/16 11:00 74 20 138/75 (96) 11/14/16 09:32 3.0 11/14/16 07:00 98.2 98.2 ROS: No Nausea, No Chest Pain, No Abdominal Pain HEENT: Other Lungs: Crackles Cardiovascular: S1, S2 Abdomen: Soft, Non-tender Extremities: Other (edema) Skin: Warm Labs Laboratory Tests Test 11/13/16 00:24 11/13/16 05:45 11/13/16 06:20 11/13/16 08:00 Glucose (Fingerstick) 134 mg/dL (70-99) 128 mg/dL (70-99) Clostridium difficile Toxin (PCR) Negative (Negative) O2 Saturation 89 % (92-99) Arterial Blood pH 7.45 (7.35-7.45) Arterial Blood pCO2 at Patient Temp 37 mmHg (35-46) Arterial Blood pO2 at Patient Temp 63 mmHg (65-108) Arterial Blood HCO3 25 mmol/L (21-28) Arterial Blood Base Excess 1 mmol/L (-3-3) FiO2 40 Test 11/13/16 09:45 11/13/16 18:34 11/14/16 08:00 11/14/16 08:30 White Blood Count 21.2 x10^3/uL (4.0-11.0) Red Blood Count 2.83 x10^6/uL (3.50-5.40) Hemoglobin 8.0 g/dL (12.0-15.5) Hematocrit 25.5 % (36.0-47.0) Mean Corpuscular Volume 90 fL (79-100) Mean Corpuscular Hemoglobin 28 pg (25-35) Mean Corpuscular Hemoglobin Concent 31 g/dL (31-37) Red Cell Distribution Width 16.8 % (11.5-14.5) Platelet Count 462 x10^3/uL (140-400) Neutrophils (%) (Auto) 62 % (31-73) Lymphocytes (%) (Auto) 27 % (24-48) Monocytes (%) (Auto) 9 % (0-9) Eosinophils (%) (Auto) 1 % (0-3) Basophils (%) (Auto) 1 % (0-3) Neutrophils # (Auto) 13.0 x10^3uL (1.8-7.7) Lymphocytes # (Auto) 5.8 x10^3/uL (1.0-4.8) Monocytes # (Auto) 2.0 x10^3/uL (0.0-1.1) Eosinophils # (Auto) 0.2 x10^3/uL (0.0-0.7) Basophils # (Auto) 0.3 x10^3/uL (0.0-0.2) Sodium Level 143 mmol/L (136-145) 143 mmol/L (136-145) Potassium Level 3.3 mmol/L (3.5-5.1) 3.7 mmol/L (3.5-5.1) Chloride Level 107 mmol/L (98-107) 106 mmol/L (98-107) Carbon Dioxide Level 30 mmol/L (21-32) 28 mmol/L (21-32) Anion Gap 6 (6-14) 9 (6-14) Blood Urea Nitrogen 19 mg/dL (7-20) 15 mg/dL (7-20) Creatinine 0.8 mg/dL (0.6-1.0) 0.8 mg/dL (0.6-1.0) Estimated GFR (Cockcroft-Gault) 87.7 87.7 BUN/Creatinine Ratio 24 (6-20) Glucose Level 112 mg/dL (70-99) 101 mg/dL (70-99) Calcium Level 8.4 mg/dL (8.5-10.1) 8.5 mg/dL (8.5-10.1) Phosphorus Level 2.3 mg/dL (2.6-4.7) Magnesium Level 1.8 mg/dL (1.8-2.4) Total Bilirubin 0.3 mg/dL (0.2-1.0) Aspartate Amino Transf (AST/SGOT) 48 U/L (15-37) Alanine Aminotransferase (ALT/SGPT) 81 U/L (14-59) Alkaline Phosphatase 114 U/L (46-116) Total Protein 6.3 g/dL (6.4-8.2) Albumin 2.4 g/dL (3.4-5.0) Albumin/Globulin Ratio 0.6 (1.0-1.7) Glucose (Fingerstick) 164 mg/dL (70-99) O2 Saturation 90 % (92-99) Arterial Blood pH 7.45 (7.35-7.45) Arterial Blood pCO2 at Patient Temp 36 mmHg (35-46) Arterial Blood pO2 at Patient Temp 63 mmHg (65-108) Arterial Blood HCO3 25 mmol/L (21-28) Arterial Blood Base Excess 1 mmol/L (-3-3) FiO2 40 Laboratory Tests Test 11/13/16 18:34 11/14/16 08:00 11/14/16 08:30 Glucose (Fingerstick) 164 mg/dL (70-99) Sodium Level 143 mmol/L (136-145) Potassium Level 3.7 mmol/L (3.5-5.1) Chloride Level 106 mmol/L (98-107) Carbon Dioxide Level 28 mmol/L (21-32) Anion Gap 9 (6-14) Blood Urea Nitrogen 15 mg/dL (7-20) Creatinine 0.8 mg/dL (0.6-1.0) Estimated GFR (Cockcroft-Gault) 87.7 Glucose Level 101 mg/dL (70-99) Calcium Level 8.5 mg/dL (8.5-10.1) O2 Saturation 90 % (92-99) Arterial Blood pH 7.45 (7.35-7.45) Arterial Blood pCO2 at Patient Temp 36 mmHg (35-46) Arterial Blood pO2 at Patient Temp 63 mmHg (65-108) Arterial Blood HCO3 25 mmol/L (21-28) Arterial Blood Base Excess 1 mmol/L (-3-3) FiO2 40 Medications Active Scripts Medications Dose Route/Sig Max Daily Dose Days Date Category Trazodone Hcl 100 Mg Tablet 100 Mg PO HS 10/31/16 Reported Polyethylene Glycol 3350 255 Gm Powder 17 Gm PO DAILY 10/31/16 Reported Olanzapine 20 Mg Tablet 2 Tab PO QHS 10/31/16 Reported Montelukast Sodium Tablet (Montelukast Sodium) 10 Mg Tablet 10 Mg PO HS 10/31/16 Reported Meloxicam 15 Mg Tablet 1 Tab PO DAILY 10/31/16 Reported Losartan Potassium 50 Mg Tablet 50 Mg PO DAILY 10/31/16 Reported Lorazepam 1 Mg Tablet 1 Mg PO HS 10/31/16 Reported Lasix (Furosemide) 40 Mg Tablet 40 Mg PO PRN DAILY 10/31/16 Reported Hydrochlorothiazide Tablet (Hydrochlorothiazide) 25 Mg Tablet 25 Mg PO DAILY 10/31/16 Reported Folic Acid 1 Mg Tablet 1 Mg PO DAILY 10/31/16 Reported Fluoxetine Hcl 40 Mg Capsule 40 Mg PO DAILY 10/31/16 Reported Famotidine 20 Mg Tablet 20 Mg PO BID 10/31/16 Reported Duoneb 0.5-3(2.5) Mg/3 Ml (Albuterol/Ipratropium) 3 Ml Ampul.neb 3 Ml NEB QID 10/31/16 Reported Docusate Sodium 100 Mg Capsule 1 Cap PO BID 10/31/16 Reported Clonidine Hcl 0.1 Mg Tablet 0.1 Mg PO QID 10/31/16 Reported Cetirizine Hcl 10 Mg Tablet 1 Tab PO DAILY 10/31/16 Reported Impression . A/C HYPERCAPNIA HYPOXEMIC RESP FAILURE MULTIFACTORIAL FAILED BIPAP INTUBATED ACUTE HEART FAILURE SUSPECT DIASTOLIC TALHA/OHS ACUTE RENAL FAILURE MORBID OBESITY FEVER POSSIBLE PNEUMONIA GRAM NEG/GRAM POS POSSIBLE SEPSIS/FEVER UTI KLEB s/p RHABDO LARYNGEAL EDEMA Plan . S/P TRACH START WEAN IN AM TRANSFER TO LTAC SOON WILL CONTINUE SUPPORT FOLLOW NEPHRO INPUT ANTIBX PER ID DVT AND GI PROPH NUTRITION PER TF CLIVE MEDRANO MD Nov 14, 2016 12:47
--- NOTE | 2016-11-14 13:17 | PDOC ---
Progress Note Subjective Subjective S/p tracheostomy. No bleeding. Weaning sedation, following commands. ROS ROS No nausea No vomiting No pain No rash Vital Sign Vital Signs Vital Signs Date Time Temp Pulse Resp B/P (MAP) Pulse Ox O2 Delivery O2 Flow Rate FiO2 11/14/16 12:22 95 Ventilator 11/14/16 12:00 98.2 89 24 159/81 (107) 98.2 11/14/16 09:32 3.0 Physical Exam PHYSICAL EXAM trach, dressings: intact, no bleeding, no leak following commands Lungs: wheeze Heart: S1 S2 Labs Lab Laboratory Tests Test 11/13/16 18:34 11/14/16 08:00 11/14/16 08:30 Glucose (Fingerstick) 164 mg/dL (70-99) Sodium Level 143 mmol/L (136-145) Potassium Level 3.7 mmol/L (3.5-5.1) Chloride Level 106 mmol/L (98-107) Carbon Dioxide Level 28 mmol/L (21-32) Anion Gap 9 (6-14) Blood Urea Nitrogen 15 mg/dL (7-20) Creatinine 0.8 mg/dL (0.6-1.0) Estimated GFR (Cockcroft-Gault) 87.7 Glucose Level 101 mg/dL (70-99) Calcium Level 8.5 mg/dL (8.5-10.1) O2 Saturation 90 % (92-99) Arterial Blood pH 7.45 (7.35-7.45) Arterial Blood pCO2 at Patient Temp 36 mmHg (35-46) Arterial Blood pO2 at Patient Temp 63 mmHg (65-108) Arterial Blood HCO3 25 mmol/L (21-28) Arterial Blood Base Excess 1 mmol/L (-3-3) FiO2 40 Objective Assessment POD#1, s/p tracheostomy. No issues with trach, no bleeding, no leak Plan Plan of Care Wean vent as per critical care team Pad skin around tracheostomy, to avoid pressure ulceration D/c tracheostomy sutures in 1 week OK to transfer to LTAC from trach standpoint KENDRICK MELVIN MD Nov 14, 2016 13:17
[2016-11-14] MEDS: FAMOTIDINE 20 MG/2 ML VIAL IVP SCH (20:11)
[2016-11-15] VITALS (23 sets, daily range): BP systolic 134–180; BP diastolic 67–92
[2016-11-15] MEDS: PIPERACILLIN/TAZOBACTAM 4.5 GM in IV NORMAL SALINE 100ML 100 ML IV SCH ×4 (00:23→19:00)
[2016-11-15] MEDS: HEPARIN PF for SUB-Q USE 5,000 UNIT/0.5 ML VIAL. SQ SCH ×3 (05:24→22:32)
--- NOTE | 2016-11-15 07:50 | PDOC ---
Infectious Disease Note Subjective Subjective S/p tracheostomy. No bleeding. Weaning sedation, following commands. ROS ROS unable to do Vital Sign Vital Signs Vital Signs Date Time Temp Pulse Resp B/P (MAP) Pulse Ox O2 Delivery O2 Flow Rate FiO2 11/15/16 06:00 82 21 174/79 (110) 94 Ventilator 11/15/16 04:00 98.5 98.5 11/15/16 00:35 3.0 Physical Exam PHYSICAL EXAM GENERAL: NAD, Alert , trach HEENT: PERRL, OC/OP NECK: Supple, no JVD, no LN LUNGS: Clear HEART: S1S2, no gallop, no murmur ABD: Soft, NT, no organomegaly, no rebound EXT: No edema, no cyanosis IRRIGATION INSTALLATION SPECIALIST: Alert, , no focal neurologic deficit SKIN: No rash IV: ok Labs Lab Laboratory Tests Test 11/14/16 08:00 11/14/16 08:30 11/14/16 16:23 Sodium Level 143 mmol/L (136-145) Potassium Level 3.7 mmol/L (3.5-5.1) Chloride Level 106 mmol/L (98-107) Carbon Dioxide Level 28 mmol/L (21-32) Anion Gap 9 (6-14) Blood Urea Nitrogen 15 mg/dL (7-20) Creatinine 0.8 mg/dL (0.6-1.0) Estimated GFR (Cockcroft-Gault) 87.7 Glucose Level 101 mg/dL (70-99) Calcium Level 8.5 mg/dL (8.5-10.1) O2 Saturation 90 % (92-99) Arterial Blood pH 7.45 (7.35-7.45) Arterial Blood pCO2 at Patient Temp 36 mmHg (35-46) Arterial Blood pO2 at Patient Temp 63 mmHg (65-108) Arterial Blood HCO3 25 mmol/L (21-28) Arterial Blood Base Excess 1 mmol/L (-3-3) FiO2 40 Glucose (Fingerstick) 181 mg/dL (70-99) Micro BC neg URINE CULTURE Final Final report URINE CULTURE RES 1 Final Klebsiella pneumoniae Greater than 100,000 colony forming units per mL ANTIMICROBIAL SUSCEPTIBILITY Final Comment S = Susceptible; I = Intermediate; R = Resistant P = Positive; N = Negative MICS are expressed in micrograms per mL Antibiotic RSLT#1 RSLT#2 RSLT#3 RSLT#4 Amoxicillin/Clavulanic Acid S Ampicillin R Cefepime S Ceftriaxone S Cefuroxime S Cephalothin S Ciprofloxacin S Ertapenem S Gentamicin S Imipenem S Levofloxacin S Nitrofurantoin S Piperacillin S Tetracycline S Tobramycin S Trimethoprim/Sulfa S Performed at: [address], [place], [place] [id number] [employer] Machine Tender: Yumiko Merritt MD, Phone: [phone] Objective Assessment Klebsiella UTI, POA Fever, better Leukocytosis, possibly reactive, c.diff negative Respiratory failure Ángel pulmonary infiltrate, CHF vs pneumonia Acute renal failure, improving Rhabdomyolysis, CK trending down Schizophrenia Plan Plan of Care Wean vent as per critical care team cont antibiotics Pad skin around tracheostomy, to avoid pressure ulceration D/c tracheostomy sutures in 1 week OK to transfer to LTAC CAITY SMITH MD Nov 15, 2016 07:50
[2016-11-15] MEDS: IPRATRPIUM/ALBUTEROL 0.5/2.5MG 3 ML NEBU. NEB SCH ×4 (08:25→19:15)
[2016-11-15] MEDS: predniSONE 20 MG TABLET PO SCH (09:45)
[2016-11-15] MEDS: CETIRIZINE HCL 10 MG TABLET. PO SCH (09:45)
[2016-11-15] MEDS: diphenhydrAMINE 50 MG/ML VIAL IVP SCH ×3 (09:46→22:31)
--- NOTE | 2016-11-15 10:08 | PDOC ---
PULMONARY PROGRESS NOTES Subjective UP IN A CHAIR, PT AWAKE FOLLOW COMMANDS Vitals Vital Signs Date Time Temp Pulse Resp B/P (MAP) Pulse Ox O2 Delivery O2 Flow Rate FiO2 11/15/16 08:30 Ventilator 11/15/16 08:00 94 11/15/16 06:00 82 21 174/79 (110) 11/15/16 04:00 98.5 98.5 11/15/16 00:35 3.0 ROS: No Nausea, No Chest Pain, No Abdominal Pain HEENT: Other Lungs: Crackles Cardiovascular: S1, S2 Abdomen: Soft, Non-tender Extremities: Other (edema) Skin: Warm Labs Laboratory Tests Test 11/13/16 18:34 11/14/16 08:00 11/14/16 08:30 11/14/16 16:23 Glucose (Fingerstick) 164 mg/dL (70-99) 181 mg/dL (70-99) Sodium Level 143 mmol/L (136-145) Potassium Level 3.7 mmol/L (3.5-5.1) Chloride Level 106 mmol/L (98-107) Carbon Dioxide Level 28 mmol/L (21-32) Anion Gap 9 (6-14) Blood Urea Nitrogen 15 mg/dL (7-20) Creatinine 0.8 mg/dL (0.6-1.0) Estimated GFR (Cockcroft-Gault) 87.7 Glucose Level 101 mg/dL (70-99) Calcium Level 8.5 mg/dL (8.5-10.1) O2 Saturation 90 % (92-99) Arterial Blood pH 7.45 (7.35-7.45) Arterial Blood pCO2 at Patient Temp 36 mmHg (35-46) Arterial Blood pO2 at Patient Temp 63 mmHg (65-108) Arterial Blood HCO3 25 mmol/L (21-28) Arterial Blood Base Excess 1 mmol/L (-3-3) FiO2 40 Laboratory Tests Test 11/14/16 16:23 Glucose (Fingerstick) 181 mg/dL (70-99) Medications Active Scripts Medications Dose Route/Sig Max Daily Dose Days Date Category Trazodone Hcl 100 Mg Tablet 100 Mg PO HS 10/31/16 Reported Polyethylene Glycol 3350 255 Gm Powder 17 Gm PO DAILY 10/31/16 Reported Olanzapine 20 Mg Tablet 2 Tab PO QHS 10/31/16 Reported Montelukast Sodium Tablet (Montelukast Sodium) 10 Mg Tablet 10 Mg PO HS 10/31/16 Reported Meloxicam 15 Mg Tablet 1 Tab PO DAILY 10/31/16 Reported Losartan Potassium 50 Mg Tablet 50 Mg PO DAILY 10/31/16 Reported Lorazepam 1 Mg Tablet 1 Mg PO HS 10/31/16 Reported Lasix (Furosemide) 40 Mg Tablet 40 Mg PO PRN DAILY 10/31/16 Reported Hydrochlorothiazide Tablet (Hydrochlorothiazide) 25 Mg Tablet 25 Mg PO DAILY 10/31/16 Reported Folic Acid 1 Mg Tablet 1 Mg PO DAILY 10/31/16 Reported Fluoxetine Hcl 40 Mg Capsule 40 Mg PO DAILY 10/31/16 Reported Famotidine 20 Mg Tablet 20 Mg PO BID 10/31/16 Reported Duoneb 0.5-3(2.5) Mg/3 Ml (Albuterol/Ipratropium) 3 Ml Ampul.neb 3 Ml NEB QID 10/31/16 Reported Docusate Sodium 100 Mg Capsule 1 Cap PO BID 10/31/16 Reported Clonidine Hcl 0.1 Mg Tablet 0.1 Mg PO QID 10/31/16 Reported Cetirizine Hcl 10 Mg Tablet 1 Tab PO DAILY 10/31/16 Reported Impression . A/C HYPERCAPNIA HYPOXEMIC RESP FAILURE MULTIFACTORIAL FAILED BIPAP INTUBATED S/P TRACH 11/13 ACUTE HEART FAILURE SUSPECT DIASTOLIC TALHA/OHS ACUTE RENAL FAILURE MORBID OBESITY FEVER POSSIBLE PNEUMONIA GRAM NEG/GRAM POS POSSIBLE SEPSIS/FEVER UTI KLEB s/p RHABDO LARYNGEAL EDEMA Plan . UP IN CHAIR ON PS 14, CHECK ABG TRANSFER TO LTAC SOON WILL CONTINUE SUPPORT FOLLOW NEPHRO INPUT ANTIBX PER ID DVT AND GI PROPH NUTRITION PER TF CLIVE MEDRANO MD Nov 15, 2016 10:08
--- NOTE | 2016-11-15 10:21 | PDOC ---
PROGRESS NOTES Chief Complaint Chief Complaint Acute hypoxic and hypercapnic resp failure with HAP, on vent with trach Fever and leukocytosis: urinary tract infection, present on admission Healthcare associated pneumonia possible gram-negative rods COPD morbid obesity, BMI 53 chronic diastolic Congestive heart failure , LV ejection fraction 65% Ckd with jerrod, vasomotor HX of schizophrenia, was in psych facility before admit here HTN, chronic tobaccoism Elevated CPK, unclear etiology Hypernatremia hypophosphatemia moderate malnutrition in morbid obesity diffuse edema, chf and malnutrition History of Present Illness History of Present Illness Back on tube feeds, dobhoff trach done appears clear, OP more clear today awake, following commands, trying to communicate, lips and tongue still swollen, hard to interpret, Family does not want PEG plan LTAC transfer, Vitals Vitals Vital Signs Date Time Temp Pulse Resp B/P (MAP) Pulse Ox O2 Delivery O2 Flow Rate FiO2 11/15/16 08:30 Ventilator 11/15/16 08:00 94 11/15/16 06:00 82 21 174/79 (110) 11/15/16 04:00 98.5 98.5 11/15/16 00:35 3.0 Physical Exam Physical Exam trach, dressings: intact, no bleeding, no leak following commands Lungs: wheeze Heart: S1 S2 General: Cooperative, No acute distress, Other (sedated) Heart: Regular rate, Normal S1, Normal S2 Lungs: Crackles Abdomen: Soft, No tenderness Extremities: Other (edema) Skin: No significant lesion Labs LABS Laboratory Tests Test 11/14/16 16:23 Glucose (Fingerstick) 181 mg/dL (70-99) Review of Systems Review of Systems no n.v.d Comment Review of Relevant I have reviewed the following items asif (where applicable) has been applied. Labs Laboratory Tests Test 11/13/16 18:34 11/14/16 08:00 11/14/16 08:30 11/14/16 16:23 Glucose (Fingerstick) 164 mg/dL (70-99) 181 mg/dL (70-99) Sodium Level 143 mmol/L (136-145) Potassium Level 3.7 mmol/L (3.5-5.1) Chloride Level 106 mmol/L (98-107) Carbon Dioxide Level 28 mmol/L (21-32) Anion Gap 9 (6-14) Blood Urea Nitrogen 15 mg/dL (7-20) Creatinine 0.8 mg/dL (0.6-1.0) Estimated GFR (Cockcroft-Gault) 87.7 Glucose Level 101 mg/dL (70-99) Calcium Level 8.5 mg/dL (8.5-10.1) O2 Saturation 90 % (92-99) Arterial Blood pH 7.45 (7.35-7.45) Arterial Blood pCO2 at Patient Temp 36 mmHg (35-46) Arterial Blood pO2 at Patient Temp 63 mmHg (65-108) Arterial Blood HCO3 25 mmol/L (21-28) Arterial Blood Base Excess 1 mmol/L (-3-3) FiO2 40 Laboratory Tests Test 11/14/16 16:23 Glucose (Fingerstick) 181 mg/dL (70-99) Microbiology 11/02/16 Blood Culture - Final, Complete NO GROWTH AFTER 5 DAYS 11/01/16 Sputum Culture - Final, Complete 11/01/16 Sputum Result 1 - Final, Complete 10/31/16 Urine Culture - Final, Complete 10/31/16 Urine Culture Result 1 (ISAIAS) - Final, Complete 10/31/16 Antimicrobic Susceptibility - Final, Complete Medications Current Medications Methylprednisolone Sodium Succinate (SOLU-Medrol 125MG VIAL) 125 mg 1X ONCE IV Last administered on 10/31/16 11:18; Start 10/31/16 at 11:00; Stop 10/31/16 at 11:01; Status DC Albuterol/ Ipratropium (Duoneb) 3 ml 1X ONCE NEB Last administered on 11:00; Start 10/31/16 at 11:00; Stop 10/31/16 at 11:01; Status DC Furosemide (Lasix) 40 mg 1X ONCE IVP Last administered on 10/31/16 11:17; Start 10/31/16 at 11:15; Stop 10/31/16 at 11:16; Status DC Vancomycin HCl (Vanco Per Pharmacy) 1 each PRN DAILY PRN MC SEE COMMENTS Last administered on 11/06/16 10:19; Start 10/31/16 at 11:30; Stop 11/06/16 at 14:40 ; Status DC Piperacillin Sod/ Tazobactam Sod (Zosyn Per Pharmacy) 1 each PRN DAILY PRN MC SEE COMMENTS; Start 10/31/16 at 11:30; Stop 11/02/16 at 08:44; Status DC Levofloxacin/ Dextrose (Levaquin Per Pharmacy) 1 each PRN DAILY PRN MC SEE COMMENTS; Start 10/31/16 at 11:30; Stop 10/31/16 at 12:57; Status DC Vancomycin HCl 2 gm/Sodium Chloride 500 ml @ 250 mls/hr 1X ONCE IV Last administered on 10/31/16 14:30; Start 10/31/16 at 11:30; Stop 10/31/16 at 13:29 ; Status DC Levofloxacin/ Dextrose 150 ml @ 100 mls/hr ONCE ONCE IV Last administered on 10/31/16 12:45; Start 10/31/16 at 11:30; Stop 10/31/16 at 12:59; Status DC Piperacillin Sod/ Tazobactam Sod 3.375 gm/Sodium Chloride 50 ml @ 100 mls/hr ONCE ONCE IV Last administered on 10/31/16 11:38; Start 10/31/16 at 11:45; Stop 10/31/16 at 12:14; Status DC Levofloxacin/ Dextrose 150 ml @ 100 mls/hr Q48H IV Last administered on 10:54; Start 11/02/16 at 10:00; Stop 11/05/16 at 09:18; Status DC Piperacillin Sod/ Tazobactam Sod 3.375 gm/Sodium Chloride 50 ml @ 100 mls/hr Q6HRS IV Last administered on 11/02/16 05:44; Start 10/31/16 at 18:00; Stop at 08:47; Status DC Acetaminophen (Tylenol) 650 mg PRN Q6HRS PRN PO FEVER Last administered on 11/01 20:26; Start 10/31/16 at 15:15; Stop 11/02/16 at 07:45; Status DC Ondansetron HCl (Zofran) 4 mg PRN Q6HRS PRN IV NAUSEA/VOMITING; Start 10/31/16 at 15:15 Morphine Sulfate 2 mg PRN Q2HR PRN IV PAIN Last administered on 11/08/16 06:16 ; Start 10/31/16 at 15:15 Tramadol HCl (Ultram) 50 mg PRN Q6HRS PRN PO PAIN; Start 10/31/16 at 15:15 Hydralazine HCl (Apresoline) 10 mg PRN Q4HRS PRN IVP ELEVATED BP, SEE COMMENTS Last administered on 11/08/16 05:13; Start 10/31/16 at 15:15 Docusate Sodium (Colace) 100 mg PRN DAILY PRN PO CONSTIPATION Last administered on 11/05/16 12:04; Start 10/31/16 at 15:15 Albuterol/ Ipratropium (Duoneb) 3 ml RTQID NEB Last administered on 11/15/16 08 :25; Start 10/31/16 at 16:00 Albuterol Sulfate (Ventolin Neb Soln) 2.5 mg PRN Q4HRS PRN NEB SHORTNESS OF BREATH; Start 10/31/16 at 15:15 Heparin Sodium (Porcine) (Heparin Sq) 5,000 unit Q8HRS SQ Last administered on 11/15/16 05:24; Start 10/31/16 at 22:00 Famotidine (Pepcid) 20 mg QHS IVP Last administered on 11/14/16 20:11; Start at 21:00 Vancomycin HCl 2 gm/Sodium Chloride 500 ml @ 250 mls/hr Q24H IV Last administered on 11/02/16 14:14; Start 11/01/16 at 14:00; Stop 11/02/16 at 14:24 ; Status DC Vancomycin HCl 1 each 1X ONCE MC Last administered on 11/02/16 13:30; Start 11/02/16 at 13:30; Stop 11/02/16 at 13:31; Status DC Sodium Chloride 1,000 ml @ 80 mls/hr [id number] IV Last administered on 08:27; Start 10/31/16 at 16:15; Stop 11/05/16 at 08:31; Status DC Sodium Chloride 1,000 ml @ 1,000 mls/hr 1X ONCE IV Last administered on 18:04; Start 10/31/16 at 14:00; Stop 10/31/16 at 17:23; Status DC Sodium Chloride 500 ml @ 500 mls/hr 1X ONCE IV Last administered on 17:30; Start 10/31/16 at 17:30; Stop 10/31/16 at 18:29; Status DC Fentanyl Citrate 30 ml @ 0 mls/hr CONT PRN IV PROTOCOL Last administered on 11/15 00:05; Start 10/31/16 at 18:30 Propofol 100 ml @ 0 mls/hr CONT PRN IV PER PROTOCOL Last administered on 19:00; Start 10/31/16 at 18:30 Chlorhexidine Gluconate (Peridex) 15 ml BID MM Last administered on 11/14/16 09 :32; Start 10/31/16 at 21:00; Stop 11/14/16 at 20:23; Status DC Artificial Tears (Artificial Tears) 1 drop PRN Q1HR PRN OU DRY EYE; Start 10/31 at 18:30 Midazolam HCl 100 ml @ 0 mls/hr CONT PRN IV PER PROTOCOL Last administered on 02:29; Start 10/31/16 at 18:30 Succinylcholine Chloride (Anectine) 200 mg STK-MED ONCE .ROUTE ; Start 10/31/16 at 18:43; Stop 10/31/16 at 18:44; Status DC Midazolam HCl (Versed) 5 mg STK-MED ONCE .ROUTE ; Start 10/31/16 at 18:45; Stop 10/31/16 at 18:46; Status DC Midazolam HCl (Versed) 5 mg 1X ONCE IV Last administered on 10/31/16 19:30; Start 10/31/16 at 19:30; Stop 10/31/16 at 19:31; Status DC Succinylcholine Chloride (Anectine) 200 mg STK-MED ONCE .ROUTE ; Start 10/31/16 at 18:45; Stop 11/01/16 at 08:13; Status DC Furosemide (Lasix) 20 mg 1X ONCE IVP Last administered on 11/01/16 13:48; Start 11/01/16 at 13:30; Stop 11/01/16 at 13:31; Status DC Sodium Chloride 500 ml @ 500 mls/hr 1X ONCE IV Last administered on 23:09; Start 11/01/16 at 23:15; Stop 11/02/16 at 00:14; Status DC Acetaminophen (Tylenol) 650 mg PRN Q6HRS PRN PEG MILD PAIN / TEMP Last administered on 11/05/16 16:39; Start 11/02/16 at 07:45 Piperacillin Sod/ Tazobactam Sod 4.5 gm/Sodium Chloride 100 ml @ 200 mls/hr Q6HRS IV Last administered on 11/15/16 05:23; Start 11/02/16 at 12:00 Sodium Chloride 500 ml @ 500 mls/hr 1X ONCE IV Last administered on 14:10; Start 11/02/16 at 13:00; Stop 11/02/16 at 13:59; Status DC Sodium Chloride 1,000 ml @ 75 mls/hr [id number] IV ; Start 11/02/16 at 13:00; Stop 11/02/16 at 13:25; Status DC Vancomycin HCl 1.75 gm/Sodium Chloride 500 ml @ 250 mls/hr Q18H IV Last administered on 11/06/16 09:13; Start 11/03/16 at 08:00; Stop 11/06/16 at 14:39 ; Status DC Vancomycin HCl 1 each 1X ONCE MC Last administered on 11/04/16 19:30; Start 11/04/16 at 19:30; Stop 11/04/16 at 19:31; Status DC Metoclopramide HCl (Reglan) 10 mg 1X ONCE IV Last administered on 11/03/16 16 :35; Start 11/03/16 at 15:45; Stop 11/03/16 at 15:46; Status DC Furosemide (Lasix) 20 mg 1X ONCE IVP Last administered on 11/04/16 10:54; Start 11/04/16 at 10:30; Stop 11/04/16 at 10:31; Status DC Metoclopramide HCl (Reglan) 10 mg 1X ONCE IV Last administered on 11/04/16 17 :15; Start 11/04/16 at 17:15; Stop 11/04/16 at 17:16; Status DC Magnesium Sulfate/ Dextrose 50 ml @ 25 mls/hr PRN DAILY PRN IV for Mag < 1.7 on am labs; Start 11/05/16 at 08:15 Hydrochlorothiazide (Hydrodiuril) 25 mg DAILY PO Last administered on 12:04; Start 11/05/16 at 09:00; Stop 11/06/16 at 11:08; Status DC Levofloxacin/ Dextrose 150 ml @ 100 mls/hr Q24H IV Last administered on 10:00; Start 11/05/16 at 10:00; Stop 11/06/16 at 14:39; Status DC Sodium Chloride 1,000 ml @ 75 mls/hr [id number] IV Last administered on 04:54; Start 11/05/16 at 15:45; Stop 11/06/16 at 09:26; Status DC Sodium Chloride 1,000 ml @ 75 mls/hr [id number] IV Last administered on 09:38; Start 11/06/16 at 09:30; Stop 11/07/16 at 07:37; Status DC Furosemide (Lasix) 20 mg 1X ONCE IVP Last administered on 11/06/16 09:38; Start 11/06/16 at 09:30; Stop 11/06/16 at 09:31; Status DC Potassium Phosphate 10 mmol/ Sodium Chloride 103.3333 ml @ 51.667 m... Q2H IV Last administered on 11/06/16 20:16; Start 11/06/16 at 13:30; Stop 11/06/16 at 17:29; Status DC Dextrose 1,000 ml @ 50 mls/hr Q20H IV Last administered on 11/07/16 09:40; Start 11/07/16 at 09:15; Stop 11/07/16 at 12:31; Status DC Dextrose 1,000 ml @ 100 mls/hr Q10H IV Last administered on 11/09/16 08:20; Start 11/07/16 at 19:30; Stop 11/09/16 at 14:39; Status DC Furosemide (Lasix) 20 mg 1X ONCE IVP Last administered on 11/08/16 09:17; Start 11/08/16 at 09:30; Stop 11/08/16 at 09:31; Status DC Saliva Substitute (Biotene Moisturizing Mouth) 2 spray PRN Q15MIN PRN PO DRY MOUTH; Start 11/08/16 at 17:30 Cetirizine HCl (ZyrTEC) 10 mg DAILY PO Last administered on 11/15/16 09:45; Start 11/10/16 at 09:00 Diphenhydramine HCl (Benadryl) 25 mg PRN Q6HRS PRN IVP ITCHING Last administered on 11/10/16 05:50; Start 11/09/16 at 10:30; Stop 11/10/16 at 14:00 ; Status DC Linezolid 300 ml @ 300 mls/hr Q12HR IV Last administered on 11/13/16 21:42; Start 11/10/16 at 10:00; Stop 11/14/16 at 07:40; Status DC Diphenhydramine HCl (Benadryl) 50 mg TID IVP Last administered on 11/15/16 09: 46; Start 11/10/16 at 14:00 Methylprednisolone Sodium Succinate (SOLU-Medrol 40MG VIAL) 40 mg Q12HR IV Last administered on 11/11/16 20:59; Start 11/10/16 at 11:00; Stop 11/12/16 at 08:09; Status DC Furosemide (Lasix) 60 mg 1X ONCE IVP Last administered on 11/11/16 10:26; Start 11/11/16 at 09:30; Stop 11/11/16 at 09:31; Status DC Prednisone (Prednisone) 40 mg DAILY PO Last administered on 11/15/16 09:45; Start 11/12/16 at 09:00 Sevoflurane (Ultane) 60 ml STK-MED ONCE IH ; Start 11/13/16 at 12:24; Stop 11/13 at 12:25; Status DC Fentanyl Citrate (Fentanyl 2ml Vial) 100 mcg STK-MED ONCE .ROUTE ; Start at 12:24; Stop 11/13/16 at 12:25; Status DC Midazolam HCl (Versed) 2 mg STK-MED ONCE .ROUTE ; Start 11/13/16 at 12:24; Stop 11/13/16 at 12:25; Status DC Vecuronium [place] (Norcuron Bolus) 10 mg STK-MED ONCE IV ; Start 11/13/16 at 12 :24; Stop 11/13/16 at 12:25; Status DC Fentanyl Citrate (Fentanyl 2ml Vial) 100 mcg STK-MED ONCE .ROUTE ; Start at 13:33; Stop 11/13/16 at 13:34; Status DC Potassium Chloride 50 ml @ 50 mls/hr Q1H IV Last administered on 11/13/16t 20: 42; Start 11/13/16 at 16:15; Stop 11/13/16 at 18:14; Status DC Active Scripts Active Reported Trazodone Hcl 100 Mg Tablet 100 Mg PO HS Polyethylene Glycol 3350 255 Gm Powder 17 Gm PO DAILY Olanzapine 20 Mg Tablet 2 Tab PO QHS Montelukast Sodium Tablet (Montelukast Sodium) 10 Mg Tablet 10 Mg PO HS Meloxicam 15 Mg Tablet 1 Tab PO DAILY Losartan Potassium 50 Mg Tablet 50 Mg PO DAILY Lorazepam 1 Mg Tablet 1 Mg PO HS Lasix (Furosemide) 40 Mg Tablet 40 Mg PO PRN DAILY Hydrochlorothiazide Tablet (Hydrochlorothiazide) 25 Mg Tablet 25 Mg PO DAILY Folic Acid 1 Mg Tablet 1 Mg PO DAILY Fluoxetine Hcl 40 Mg Capsule 40 Mg PO DAILY Famotidine 20 Mg Tablet 20 Mg PO BID Duoneb 0.5-3(2.5) Mg/3 Ml (Albuterol/Ipratropium) 3 Ml Ampul.neb 3 Ml NEB QID Docusate Sodium 100 Mg Capsule 1 Cap PO BID Clonidine Hcl 0.1 Mg Tablet 0.1 Mg PO QID Cetirizine Hcl 10 Mg Tablet 1 Tab PO DAILY Vitals/I & O Vital Sign - Last 24 Hours 11/14/16 11/14/16 11/14/16 11/14/16 10:30 11:00 12:00 12:00 Temp 98.2 98.2 Pulse 74 89 Resp 20 24 B/P (MAP) 138/75 (96) 159/81 (107) Pulse Ox 94 95 93 O2 Delivery Ventilator Ventilator Ventilator Mechanical Ventilator 11/14/16 11/14/16 11/14/16 11/14/16 12:22 13:00 14:10 14:27 Pulse 93 88 Resp 24 21 B/P (MAP) 154/82 (106) 157/72 (100) Pulse Ox 95 94 93 94 O2 Delivery Ventilator Ventilator Ventilator 11/14/16 11/14/16 11/14/16 11/14/16 15:00 16:00 16:00 16:10 Temp 98.0 98.0 Pulse 70 70 Resp 21 20 B/P (MAP) 117/68 (84) 128/72 (90) Pulse Ox 97 98 97 O2 Delivery Mechanical Ventilator Ventilator 11/14/16 11/14/16 11/14/16 11/14/16 17:00 17:01 18:00 19:00 Temp 98.2 98.2 Pulse 85 89 86 Resp 24 24 22 20 B/P (MAP) 155/81 (105) 141/88 (105) 153/83 (106) Pulse Ox 94 97 96 96 O2 Delivery Ventilator 11/14/16 11/14/16 11/14/16 11/14/16 19:36 20:00 20:00 21:00 Pulse 76 74 Resp 24 22 B/P (MAP) 160/86 (110) 158/88 (111) Pulse Ox 96 96 97 O2 Delivery Ventilator Mechanical Ventilator Ventilator Ventilator 11/14/16 11/14/16 11/14/16 11/14/16 21:40 22:00 23:43 23:59 Temp 98.4 98.4 Pulse 81 87 Resp 24 24 B/P (MAP) 154/87 (109) 143/78 (99) Pulse Ox 97 97 95 O2 Delivery Ventilator Ventilator Ventilator Mechanical Ventilator 11/15/16 11/15/16 11/15/16 11/15/16 00:05 00:05 00:35 01:00 Pulse 82 Resp 22 24 21 B/P (MAP) 160/80 (106) Pulse Ox 94 94 94 94 O2 Delivery Ventilator Ventilator Ventilator Ventilator O2 Flow Rate 3.0 11/15/16 11/15/16 11/15/16 11/15/16 01:45 02:00 03:00 04:00 Temp 98.5 98.5 Pulse 90 73 77 Resp 22 21 22 B/P (MAP) 180/86 (117) 156/80 (105) 142/75 (97) Pulse Ox 95 93 95 95 O2 Delivery Ventilator Ventilator Ventilator Ventilator 11/15/16 11/15/16 11/15/16 11/15/16 04:00 04:30 05:00 06:00 Pulse 78 82 Resp 22 21 B/P (MAP) 170/92 (118) 174/79 (110) Pulse Ox 95 94 94 O2 Delivery Mechanical Ventilator Ventilator Ventilator Ventilator 11/15/16 11/15/16 08:00 08:30 Pulse Ox 94 O2 Delivery Ventilator Ventilator Intake and Output 11/14/16 11/14/16 11/15/16 15:00 23:00 07:00 Intake Total 200 ml 722 ml 576.8 ml Output Total 685 ml 715 ml 275 ml Balance -485 ml 7 ml 301.8 ml ERYN RAMSEY MD Nov 15, 2016 10:21
[2016-11-15 13:06] LABS: HCO3 ABG 26 mmol/L (21-28); PCO2 ABG 38 mmHg (35-46); PH ABG 7.44 (7.35-7.45); PO2 ABG 57 mmHg (65-108); SAT O2 ABG 88 % (92-99)
[2016-11-15 13:08] LABS: FIO2 ABG 40
[2016-11-15] MEDS ORDERED: PROPOFOL 100 ML IV PRN (17:00)
[2016-11-15] MEDS: FAMOTIDINE 20 MG/2 ML VIAL IVP SCH (22:31)
[2016-11-15] MEDS: MORPHINE SULFATE 2 MG/ML DISP.SYRIN. IV PRN (22:32)
[2016-11-16] VITALS (24 sets, daily range): BP systolic 141–183; BP diastolic 69–96
[2016-11-16] MEDS: PIPERACILLIN/TAZOBACTAM 4.5 GM in IV NORMAL SALINE 100ML 100 ML IV SCH ×2 (00:11→05:58)
[2016-11-16] MEDS: HEPARIN PF for SUB-Q USE 5,000 UNIT/0.5 ML VIAL. SQ SCH ×3 (05:58→22:27)
--- NOTE | 2016-11-16 07:27 | PDOC ---
Infectious Disease Note Subjective Subjective S/p tracheostomy. No bleeding. Weaning sedation, following commands. ROS ROS unable to do Vital Sign Vital Signs Vital Signs Date Time Temp Pulse Resp B/P (MAP) Pulse Ox O2 Delivery O2 Flow Rate FiO2 11/16/16 06:00 79 23 160/83 (108) 98 Ventilator 11/16/16 04:00 98.6 98.6 11/15/16 23:02 3.0 Physical Exam PHYSICAL EXAM GENERAL: NAD, Alert, trach, on vent HEENT: PERRL, OC/OP NECK: Supple, no JVD, no LN LUNGS: Clear HEART: S1S2, no gallop, no murmur ABD: Soft, NT, no organomegaly, no rebound EXT: No edema, no cyanosis INTERVIEWING CLERK: Alert, , no focal neurologic deficit SKIN: No rash IV: ok Labs Lab Laboratory Tests Test 11/15/16 12:45 O2 Saturation 88 % (92-99) Arterial Blood pH 7.44 (7.35-7.45) Arterial Blood pCO2 at Patient Temp 38 mmHg (35-46) Arterial Blood pO2 at Patient Temp 57 mmHg (65-108) Arterial Blood HCO3 26 mmol/L (21-28) Arterial Blood Base Excess 2 mmol/L (-3-3) FiO2 40 Micro BC neg URINE CULTURE Final Final report URINE CULTURE RES 1 Final Klebsiella pneumoniae Greater than 100,000 colony forming units per mL ANTIMICROBIAL SUSCEPTIBILITY Final Comment S = Susceptible; I = Intermediate; R = Resistant P = Positive; N = Negative MICS are expressed in micrograms per mL Antibiotic RSLT#1 RSLT#2 RSLT#3 RSLT#4 Amoxicillin/Clavulanic Acid S Ampicillin R Cefepime S Ceftriaxone S Cefuroxime S Cephalothin S Ciprofloxacin S Ertapenem S Gentamicin S Imipenem S Levofloxacin S Nitrofurantoin S Piperacillin S Tetracycline S Tobramycin S Trimethoprim/Sulfa S Performed at: [facility] [address] [facility], [place], [place] [id number] [employer] Hand: Yumiko Merritt MD, Phone: [phone] Objective Assessment Klebsiella UTI, POA Fever, better Leukocytosis, possibly reactive, c.diff negative Respiratory failure Ángel pulmonary infiltrate, CHF vs pneumonia Acute renal failure, improving Rhabdomyolysis, CK trending down Schizophrenia Plan Plan of Care Wean vent as per critical care team d/c odilia NIEVES to transfer to LTAC CAITY SMITH MD Nov 16, 2016 07:27
[2016-11-16] MEDS: IPRATRPIUM/ALBUTEROL 0.5/2.5MG 3 ML NEBU. NEB SCH ×4 (08:25→19:39)
[2016-11-16 08:48] LABS: HCO3 ABG 26 mmol/L (21-28); PCO2 ABG 37 mmHg (35-46); PH ABG 7.45 (7.35-7.45); PO2 ABG 65 mmHg (65-108); SAT O2 ABG 92 % (92-99)
--- NOTE | 2016-11-16 08:50 | PDOC ---
PROGRESS NOTES Chief Complaint Chief Complaint Acute hypoxic and hypercapnic resp failure with HAP, on vent with trach Fever and leukocytosis: urinary tract infection, POA, klebsiella Healthcare associated pneumonia possible gram-negative rods COPD morbid obesity, BMI 53 chronic diastolic Congestive heart failure , LV ejection fraction 65% Ckd with jerrod, vasomotor HX of schizophrenia, was in psych facility before admit here HTN, chronic tobaccoism Elevated CPK, unclear etiology Hypernatremia hypophosphatemia moderate malnutrition in morbid obesity diffuse edema, chf and malnutrition History of Present Illness History of Present Illness tube feeds, dobhoff no event trying to wean vent awake, following commands, trying to communicate, l plan LTAC transfer, Vitals Vitals Vital Signs Date Time Temp Pulse Resp B/P (MAP) Pulse Ox O2 Delivery O2 Flow Rate FiO2 11/16/16 07:47 95 Ventilator 11/16/16 06:00 79 23 160/83 (108) 11/16/16 04:00 98.6 98.6 11/15/16 23:02 3.0 Physical Exam Physical Exam trach, dressings: intact, no bleeding, no leak following commands Lungs: wheeze Heart: S1 S2 General: Cooperative, No acute distress, Other (sedated) Heart: Regular rate, Normal S1, Normal S2 Lungs: Crackles Abdomen: Soft, No tenderness Extremities: Other (edema) Skin: No significant lesion Labs LABS Laboratory Tests Test 11/15/16 12:45 O2 Saturation 88 % (92-99) Arterial Blood pH 7.44 (7.35-7.45) Arterial Blood pCO2 at Patient Temp 38 mmHg (35-46) Arterial Blood pO2 at Patient Temp 57 mmHg (65-108) Arterial Blood HCO3 26 mmol/L (21-28) Arterial Blood Base Excess 2 mmol/L (-3-3) FiO2 40 Review of Systems Review of Systems unable Assessment and Plan Assessmemt and Plan cont abx wean vent LTAC appropriate Problems: Comment Review of Relevant I have reviewed the following items asif (where applicable) has been applied. Labs Laboratory Tests Test 11/14/16 16:23 11/15/16 12:45 Glucose (Fingerstick) 181 mg/dL (70-99) O2 Saturation 88 % (92-99) Arterial Blood pH 7.44 (7.35-7.45) Arterial Blood pCO2 at Patient Temp 38 mmHg (35-46) Arterial Blood pO2 at Patient Temp 57 mmHg (65-108) Arterial Blood HCO3 26 mmol/L (21-28) Arterial Blood Base Excess 2 mmol/L (-3-3) FiO2 40 Laboratory Tests Test 11/15/16 12:45 O2 Saturation 88 % (92-99) Arterial Blood pH 7.44 (7.35-7.45) Arterial Blood pCO2 at Patient Temp 38 mmHg (35-46) Arterial Blood pO2 at Patient Temp 57 mmHg (65-108) Arterial Blood HCO3 26 mmol/L (21-28) Arterial Blood Base Excess 2 mmol/L (-3-3) FiO2 40 Microbiology 11/02/16 Blood Culture - Final, Complete NO GROWTH AFTER 5 DAYS 11/01/16 Sputum Culture - Final, Complete 11/01/16 Sputum Result 1 - Final, Complete 10/31/16 Urine Culture - Final, Complete 10/31/16 Urine Culture Result 1 (ISAIAS) - Final, Complete 10/31/16 Antimicrobic Susceptibility - Final, Complete Medications Current Medications Methylprednisolone Sodium Succinate (SOLU-Medrol 125MG VIAL) 125 mg 1X ONCE IV Last administered on 10/31/16 11:18; Start 10/31/16 at 11:00; Stop 10/31/16 at 11:01; Status DC Albuterol/ Ipratropium (Duoneb) 3 ml 1X ONCE NEB Last administered on 11:00; Start 10/31/16 at 11:00; Stop 10/31/16 at 11:01; Status DC Furosemide (Lasix) 40 mg 1X ONCE IVP Last administered on 10/31/16 11:17; Start 10/31/16 at 11:15; Stop 10/31/16 at 11:16; Status DC Vancomycin HCl (Vanco Per Pharmacy) 1 each PRN DAILY PRN MC SEE COMMENTS Last administered on 11/06/16 10:19; Start 10/31/16 at 11:30; Stop 11/06/16 at 14:40 ; Status DC Piperacillin Sod/ Tazobactam Sod (Zosyn Per Pharmacy) 1 each PRN DAILY PRN MC SEE COMMENTS; Start 10/31/16 at 11:30; Stop 11/02/16 at 08:44; Status DC Levofloxacin/ Dextrose (Levaquin Per Pharmacy) 1 each PRN DAILY PRN MC SEE COMMENTS; Start 10/31/16 at 11:30; Stop 10/31/16 at 12:57; Status DC Vancomycin HCl 2 gm/Sodium Chloride 500 ml @ 250 mls/hr 1X ONCE IV Last administered on 10/31/16 14:30; Start 10/31/16 at 11:30; Stop 10/31/16 at 13:29 ; Status DC Levofloxacin/ Dextrose 150 ml @ 100 mls/hr ONCE ONCE IV Last administered on 10/31/16 12:45; Start 10/31/16 at 11:30; Stop 10/31/16 at 12:59; Status DC Piperacillin Sod/ Tazobactam Sod 3.375 gm/Sodium Chloride 50 ml @ 100 mls/hr ONCE ONCE IV Last administered on 10/31/16 11:38; Start 10/31/16 at 11:45; Stop 10/31/16 at 12:14; Status DC Levofloxacin/ Dextrose 150 ml @ 100 mls/hr Q48H IV Last administered on 10:54; Start 11/02/16 at 10:00; Stop 11/05/16 at 09:18; Status DC Piperacillin Sod/ Tazobactam Sod 3.375 gm/Sodium Chloride 50 ml @ 100 mls/hr Q6HRS IV Last administered on 11/02/16 05:44; Start 10/31/16 at 18:00; Stop at 08:47; Status DC Acetaminophen (Tylenol) 650 mg PRN Q6HRS PRN PO FEVER Last administered on 11/01 20:26; Start 10/31/16 at 15:15; Stop 11/02/16 at 07:45; Status DC Ondansetron HCl (Zofran) 4 mg PRN Q6HRS PRN IV NAUSEA/VOMITING; Start 10/31/16 at 15:15 Morphine Sulfate 2 mg PRN Q2HR PRN IV PAIN Last administered on 11/15/16 22:32 ; Start 10/31/16 at 15:15 Tramadol HCl (Ultram) 50 mg PRN Q6HRS PRN PO PAIN; Start 10/31/16 at 15:15 Hydralazine HCl (Apresoline) 10 mg PRN Q4HRS PRN IVP ELEVATED BP, SEE COMMENTS Last administered on 11/08/16 05:13; Start 10/31/16 at 15:15 Docusate Sodium (Colace) 100 mg PRN DAILY PRN PO CONSTIPATION Last administered on 11/05/16 12:04; Start 10/31/16 at 15:15 Albuterol/ Ipratropium (Duoneb) 3 ml RTQID NEB Last administered on 11/16/16 08 :25; Start 10/31/16 at 16:00 Albuterol Sulfate (Ventolin Neb Soln) 2.5 mg PRN Q4HRS PRN NEB SHORTNESS OF BREATH; Start 10/31/16 at 15:15 Heparin Sodium (Porcine) (Heparin Sq) 5,000 unit Q8HRS SQ Last administered on 11/16/16 05:58; Start 10/31/16 at 22:00 Famotidine (Pepcid) 20 mg QHS IVP Last administered on 11/15/16 22:31; Start at 21:00 Vancomycin HCl 2 gm/Sodium Chloride 500 ml @ 250 mls/hr Q24H IV Last administered on 11/02/16 14:14; Start 11/01/16 at 14:00; Stop 11/02/16 at 14:24 ; Status DC Vancomycin HCl 1 each 1X ONCE MC Last administered on 11/02/16 13:30; Start 11/02/16 at 13:30; Stop 11/02/16 at 13:31; Status DC Sodium Chloride 1,000 ml @ 80 mls/hr [id number] IV Last administered on 08:27; Start 10/31/16 at 16:15; Stop 11/05/16 at 08:31; Status DC Sodium Chloride 1,000 ml @ 1,000 mls/hr 1X ONCE IV Last administered on 18:04; Start 10/31/16 at 14:00; Stop 10/31/16 at 17:23; Status DC Sodium Chloride 500 ml @ 500 mls/hr 1X ONCE IV Last administered on 17:30; Start 10/31/16 at 17:30; Stop 10/31/16 at 18:29; Status DC Fentanyl Citrate 30 ml @ 0 mls/hr CONT PRN IV PROTOCOL Last administered on 11/15 00:05; Start 10/31/16 at 18:30 Propofol 100 ml @ 0 mls/hr CONT PRN IV PER PROTOCOL Last administered on 19:00; Start 10/31/16 at 18:30 Chlorhexidine Gluconate (Peridex) 15 ml BID MM Last administered on 11/14/16 09 :32; Start 10/31/16 at 21:00; Stop 11/14/16 at 20:23; Status DC Artificial Tears (Artificial Tears) 1 drop PRN Q1HR PRN OU DRY EYE; Start 10/31 at 18:30 Midazolam HCl 100 ml @ 0 mls/hr CONT PRN IV PER PROTOCOL Last administered on 02:29; Start 10/31/16 at 18:30 Succinylcholine Chloride (Anectine) 200 mg STK-MED ONCE .ROUTE ; Start 10/31/16 at 18:43; Stop 10/31/16 at 18:44; Status DC Midazolam HCl (Versed) 5 mg STK-MED ONCE .ROUTE ; Start 10/31/16 at 18:45; Stop 10/31/16 at 18:46; Status DC Midazolam HCl (Versed) 5 mg 1X ONCE IV Last administered on 10/31/16 19:30; Start 10/31/16 at 19:30; Stop 10/31/16 at 19:31; Status DC Succinylcholine Chloride (Anectine) 200 mg STK-MED ONCE .ROUTE ; Start 10/31/16 at 18:45; Stop 11/01/16 at 08:13; Status DC Furosemide (Lasix) 20 mg 1X ONCE IVP Last administered on 11/01/16 13:48; Start 11/01/16 at 13:30; Stop 11/01/16 at 13:31; Status DC Sodium Chloride 500 ml @ 500 mls/hr 1X ONCE IV Last administered on 23:09; Start 11/01/16 at 23:15; Stop 11/02/16 at 00:14; Status DC Acetaminophen (Tylenol) 650 mg PRN Q6HRS PRN PEG MILD PAIN / TEMP Last administered on 11/05/16 16:39; Start 11/02/16 at 07:45 Piperacillin Sod/ Tazobactam Sod 4.5 gm/Sodium Chloride 100 ml @ 200 mls/hr Q6HRS IV Last administered on 11/16/16 05:58; Start 11/02/16 at 12:00; Stop 11/16/16 at 07:25; Status DC Sodium Chloride 500 ml @ 500 mls/hr 1X ONCE IV Last administered on 14:10; Start 11/02/16 at 13:00; Stop 11/02/16 at 13:59; Status DC Sodium Chloride 1,000 ml @ 75 mls/hr [id number] IV ; Start 11/02/16 at 13:00; Stop 11/02/16 at 13:25; Status DC Vancomycin HCl 1.75 gm/Sodium Chloride 500 ml @ 250 mls/hr Q18H IV Last administered on 11/06/16 09:13; Start 11/03/16 at 08:00; Stop 11/06/16 at 14:39 ; Status DC Vancomycin HCl 1 each 1X ONCE MC Last administered on 11/04/16 19:30; Start 11/04/16 at 19:30; Stop 11/04/16 at 19:31; Status DC Metoclopramide HCl (Reglan) 10 mg 1X ONCE IV Last administered on 11/03/16 16 :35; Start 11/03/16 at 15:45; Stop 11/03/16 at 15:46; Status DC Furosemide (Lasix) 20 mg 1X ONCE IVP Last administered on 11/04/16 10:54; Start 11/04/16 at 10:30; Stop 11/04/16 at 10:31; Status DC Metoclopramide HCl (Reglan) 10 mg 1X ONCE IV Last administered on 11/04/16 17 :15; Start 11/04/16 at 17:15; Stop 11/04/16 at 17:16; Status DC Magnesium Sulfate/ Dextrose 50 ml @ 25 mls/hr PRN DAILY PRN IV for Mag < 1.7 on am labs; Start 11/05/16 at 08:15 Hydrochlorothiazide (Hydrodiuril) 25 mg DAILY PO Last administered on 12:04; Start 11/05/16 at 09:00; Stop 11/06/16 at 11:08; Status DC Levofloxacin/ Dextrose 150 ml @ 100 mls/hr Q24H IV Last administered on 10:00; Start 11/05/16 at 10:00; Stop 11/06/16 at 14:39; Status DC Sodium Chloride 1,000 ml @ 75 mls/hr [id number] IV Last administered on 04:54; Start 11/05/16 at 15:45; Stop 11/06/16 at 09:26; Status DC Sodium Chloride 1,000 ml @ 75 mls/hr [id number] IV Last administered on 09:38; Start 11/06/16 at 09:30; Stop 11/07/16 at 07:37; Status DC Furosemide (Lasix) 20 mg 1X ONCE IVP Last administered on 11/06/16 09:38; Start 11/06/16 at 09:30; Stop 11/06/16 at 09:31; Status DC Potassium Phosphate 10 mmol/ Sodium Chloride 103.3333 ml @ 51.667 m... Q2H IV Last administered on 11/06/16 20:16; Start 11/06/16 at 13:30; Stop 11/06/16 at 17:29; Status DC Dextrose 1,000 ml @ 50 mls/hr Q20H IV Last administered on 11/07/16 09:40; Start 11/07/16 at 09:15; Stop 11/07/16 at 12:31; Status DC Dextrose 1,000 ml @ 100 mls/hr Q10H IV Last administered on 11/09/16 08:20; Start 11/07/16 at 19:30; Stop 11/09/16 at 14:39; Status DC Furosemide (Lasix) 20 mg 1X ONCE IVP Last administered on 11/08/16 09:17; Start 11/08/16 at 09:30; Stop 11/08/16 at 09:31; Status DC Saliva Substitute (Biotene Moisturizing Mouth) 2 spray PRN Q15MIN PRN PO DRY MOUTH; Start 11/08/16 at 17:30 Cetirizine HCl (ZyrTEC) 10 mg DAILY PO Last administered on 11/15/16 09:45; Start 11/10/16 at 09:00 Diphenhydramine HCl (Benadryl) 25 mg PRN Q6HRS PRN IVP ITCHING Last administered on 11/10/16 05:50; Start 11/09/16 at 10:30; Stop 11/10/16 at 14:00 ; Status DC Linezolid 300 ml @ 300 mls/hr Q12HR IV Last administered on 11/13/16 21:42; Start 11/10/16 at 10:00; Stop 11/14/16 at 07:40; Status DC Diphenhydramine HCl (Benadryl) 50 mg TID IVP Last administered on 11/15/16 22: 31; Start 11/10/16 at 14:00 Methylprednisolone Sodium Succinate (SOLU-Medrol 40MG VIAL) 40 mg Q12HR IV Last administered on 11/11/16 20:59; Start 11/10/16 at 11:00; Stop 11/12/16 at 08:09; Status DC Furosemide (Lasix) 60 mg 1X ONCE IVP Last administered on 11/11/16 10:26; Start 11/11/16 at 09:30; Stop 11/11/16 at 09:31; Status DC Prednisone (Prednisone) 40 mg DAILY PO Last administered on 11/15/16 09:45; Start 11/12/16 at 09:00 Sevoflurane (Ultane) 60 ml STK-MED ONCE IH ; Start 11/13/16 at 12:24; Stop 11/13 at 12:25; Status DC Fentanyl Citrate (Fentanyl 2ml Vial) 100 mcg STK-MED ONCE .ROUTE ; Start at 12:24; Stop 11/13/16 at 12:25; Status DC Midazolam HCl (Versed) 2 mg STK-MED ONCE .ROUTE ; Start 11/13/16 at 12:24; Stop 11/13/16 at 12:25; Status DC Vecuronium Dahlgren (Norcuron Bolus) 10 mg STK-MED ONCE IV ; Start 11/13/16 at 12 :24; Stop 11/13/16 at 12:25; Status DC Fentanyl Citrate (Fentanyl 2ml Vial) 100 mcg STK-MED ONCE .ROUTE ; Start at 13:33; Stop 11/13/16 at 13:34; Status DC Potassium Chloride 50 ml @ 50 mls/hr Q1H IV Last administered on 7/31/17at 20: 42; Start 11/13/16 at 16:15; Stop 11/13/16 at 18:14; Status DC Propofol 100 ml @ 0 mls/hr CONT PRN IV SEE I/O RECORD; Start 11/15/16 at 17:00; Status UNV Active Scripts Active Reported Trazodone Hcl 100 Mg Tablet 100 Mg PO HS Polyethylene Glycol 3350 255 Gm Powder 17 Gm PO DAILY Olanzapine 20 Mg Tablet 2 Tab PO QHS Montelukast Sodium Tablet (Montelukast Sodium) 10 Mg Tablet 10 Mg PO HS Meloxicam 15 Mg Tablet 1 Tab PO DAILY Losartan Potassium 50 Mg Tablet 50 Mg PO DAILY Lorazepam 1 Mg Tablet 1 Mg PO HS Lasix (Furosemide) 40 Mg Tablet 40 Mg PO PRN DAILY Hydrochlorothiazide Tablet (Hydrochlorothiazide) 25 Mg Tablet 25 Mg PO DAILY Folic Acid 1 Mg Tablet 1 Mg PO DAILY Fluoxetine Hcl 40 Mg Capsule 40 Mg PO DAILY Famotidine 20 Mg Tablet 20 Mg PO BID Duoneb 0.5-3(2.5) Mg/3 Ml (Albuterol/Ipratropium) 3 Ml Ampul.neb 3 Ml NEB QID Docusate Sodium 100 Mg Capsule 1 Cap PO BID Clonidine Hcl 0.1 Mg Tablet 0.1 Mg PO QID Cetirizine Hcl 10 Mg Tablet 1 Tab PO DAILY Vitals/I & O Vital Sign - Last 24 Hours 11/15/16 11/15/16 11/15/16 11/15/16 09:00 09:05 10:00 10:00 Pulse 86 81 Resp 38 23 B/P (MAP) 164/83 (110) 144/72 (96) Pulse Ox 94 95 96 O2 Delivery Ventilator Ventilator Ventilator Ventilator 11/15/16 11/15/16 11/15/16 11/15/16 11:00 11:30 12:00 12:00 Temp 98.3 98.3 Pulse 76 86 Resp 20 46 B/P (MAP) 134/67 (89) 150/78 (102) Pulse Ox 96 93 O2 Delivery Ventilator Ventilator Ventilator Mechanical Ventilator 11/15/16 11/15/16 11/15/16 11/15/16 12:47 13:00 14:00 14:20 Pulse 90 83 Resp 34 34 B/P (MAP) 156/78 (104) 154/79 (104) Pulse Ox 94 92 96 97 O2 Delivery Ventilator Ventilator Ventilator Ventilator 11/15/16 11/15/16 11/15/16 11/15/16 15:00 16:00 16:00 16:30 Temp 98.3 98.3 Pulse 84 78 Resp 42 37 B/P (MAP) 167/82 (110) 154/79 (104) Pulse Ox 97 97 97 O2 Delivery Ventilator Ventilator Mechanical Ventilator Ventilator 11/15/16 11/15/16 11/15/16 11/15/16 17:00 18:00 19:00 19:15 Pulse 77 76 82 Resp 34 34 34 B/P (MAP) 164/85 (111) 162/82 (108) 173/89 (117) Pulse Ox 96 99 99 98 O2 Delivery Ventilator Ventilator Ventilator Ventilator 11/15/16 11/15/16 11/15/16 11/15/16 20:00 20:00 21:00 22:00 Temp 98.7 98.7 Pulse 85 82 92 Resp 24 24 25 B/P (MAP) 169/83 (111) 168/82 (110) 173/89 (117) Pulse Ox 99 99 99 O2 Delivery Ventilator Mechanical Ventilator Ventilator Ventilator 11/15/16 11/15/16 11/15/16 11/15/16 22:32 22:48 22:50 23:00 Pulse 92 Resp 25 B/P (MAP) 170/87 (114) Pulse Ox 99 95 94 95 O2 Delivery Ventilator Ventilator Ventilator O2 Flow Rate 3.0 11/15/16 11/15/16 11/16/16 11/16/16 23:02 23:59 00:00 01:00 Temp 98.5 98.5 Pulse 92 92 Resp 22 24 22 B/P (MAP) 148/77 (100) 183/91 (121) Pulse Ox 95 97 95 O2 Delivery Mechanical Ventilator Ventilator Ventilator O2 Flow Rate 3.0 11/16/16 11/16/16 11/16/16 11/16/16 01:15 02:00 03:00 03:00 Pulse 92 92 Resp 22 20 B/P (MAP) 176/84 (114) 168/78 (108) Pulse Ox 96 95 95 95 O2 Delivery Ventilator Ventilator Ventilator Ventilator 11/16/16 11/16/16 11/16/16 11/16/16 04:00 04:00 05:00 05:15 Temp 98.6 98.6 Pulse 86 79 Resp 20 20 B/P (MAP) 155/77 (103) 146/77 (100) Pulse Ox 96 96 96 O2 Delivery Mechanical Ventilator Ventilator Ventilator Ventilator 11/16/16 11/16/16 06:00 07:47 Pulse 79 Resp 23 B/P (MAP) 160/83 (108) Pulse Ox 98 95 O2 Delivery Ventilator Ventilator Intake and Output 11/15/16 11/15/16 11/16/16 15:00 23:00 07:00 Intake Total 0 ml 147 ml 1851 ml Output Total 600 ml 850 ml 700 ml Balance -600 ml -703 ml 1151 ml ERYN RAMSEY MD Nov 16, 2016 08:50
--- NOTE | 2016-11-16 08:52 | PDOC ---
PULMONARY PROGRESS NOTES Subjective UP IN A CHAIR, PT AWAKE FOLLOW COMMANDS Vitals Vital Signs Date Time Temp Pulse Resp B/P (MAP) Pulse Ox O2 Delivery O2 Flow Rate FiO2 11/16/16 07:47 95 Ventilator 11/16/16 06:00 79 23 160/83 (108) 11/16/16 04:00 98.6 98.6 11/15/16 23:02 3.0 ROS: No Nausea, No Chest Pain, No Abdominal Pain HEENT: Other Lungs: Crackles Cardiovascular: S1, S2 Abdomen: Soft, Non-tender Extremities: Other (edema) Skin: Warm Labs Laboratory Tests Test 11/14/16 16:23 11/15/16 12:45 Glucose (Fingerstick) 181 mg/dL (70-99) O2 Saturation 88 % (92-99) Arterial Blood pH 7.44 (7.35-7.45) Arterial Blood pCO2 at Patient Temp 38 mmHg (35-46) Arterial Blood pO2 at Patient Temp 57 mmHg (65-108) Arterial Blood HCO3 26 mmol/L (21-28) Arterial Blood Base Excess 2 mmol/L (-3-3) FiO2 40 Laboratory Tests Test 11/15/16 12:45 O2 Saturation 88 % (92-99) Arterial Blood pH 7.44 (7.35-7.45) Arterial Blood pCO2 at Patient Temp 38 mmHg (35-46) Arterial Blood pO2 at Patient Temp 57 mmHg (65-108) Arterial Blood HCO3 26 mmol/L (21-28) Arterial Blood Base Excess 2 mmol/L (-3-3) FiO2 40 Medications Active Scripts Medications Dose Route/Sig Max Daily Dose Days Date Category Trazodone Hcl 100 Mg Tablet 100 Mg PO HS 10/31/16 Reported Polyethylene Glycol 3350 255 Gm Powder 17 Gm PO DAILY 10/31/16 Reported Olanzapine 20 Mg Tablet 2 Tab PO QHS 10/31/16 Reported Montelukast Sodium Tablet (Montelukast Sodium) 10 Mg Tablet 10 Mg PO HS 10/31/16 Reported Meloxicam 15 Mg Tablet 1 Tab PO DAILY 10/31/16 Reported Losartan Potassium 50 Mg Tablet 50 Mg PO DAILY 10/31/16 Reported Lorazepam 1 Mg Tablet 1 Mg PO HS 10/31/16 Reported Lasix (Furosemide) 40 Mg Tablet 40 Mg PO PRN DAILY 10/31/16 Reported Hydrochlorothiazide Tablet (Hydrochlorothiazide) 25 Mg Tablet 25 Mg PO DAILY 10/31/16 Reported Folic Acid 1 Mg Tablet 1 Mg PO DAILY 10/31/16 Reported Fluoxetine Hcl 40 Mg Capsule 40 Mg PO DAILY 10/31/16 Reported Famotidine 20 Mg Tablet 20 Mg PO BID 10/31/16 Reported Duoneb 0.5-3(2.5) Mg/3 Ml (Albuterol/Ipratropium) 3 Ml Ampul.neb 3 Ml NEB QID 10/31/16 Reported Docusate Sodium 100 Mg Capsule 1 Cap PO BID 10/31/16 Reported Clonidine Hcl 0.1 Mg Tablet 0.1 Mg PO QID 10/31/16 Reported Cetirizine Hcl 10 Mg Tablet 1 Tab PO DAILY 10/31/16 Reported Impression . A/C HYPERCAPNIA HYPOXEMIC RESP FAILURE MULTIFACTORIAL FAILED BIPAP INTUBATED S/P TRACH 11/13 ACUTE HEART FAILURE SUSPECT DIASTOLIC TALHA/OHS ACUTE RENAL FAILURE MORBID OBESITY FEVER POSSIBLE PNEUMONIA GRAM NEG/GRAM POS POSSIBLE SEPSIS/FEVER UTI KLEB s/p RHABDO LARYNGEAL EDEMA Plan . PS TOLERATED TRANSFER TO LTAC SOON PT NOT WEANABLE IN NEXT FEW DAYS, NEEDS TIME FOLLOW NEPHRO INPUT ANTIBX PER ID DVT AND GI PROPH NUTRITION PER TF CLIVE MEDRANO MD Nov 16, 2016 08:52
[2016-11-16] MEDS: diphenhydrAMINE 50 MG/ML VIAL IVP SCH ×3 (10:07→22:25)
[2016-11-16] MEDS: predniSONE 20 MG TABLET PO SCH (10:07)
[2016-11-16] MEDS: CETIRIZINE HCL 10 MG TABLET. PO SCH (10:07)
[2016-11-16 12:40] LABS: FIO2 ABG 50
[2016-11-16] MEDS: MORPHINE SULFATE 2 MG/ML DISP.SYRIN. IV PRN (14:34)
[2016-11-16] MEDS: FAMOTIDINE 20 MG/2 ML VIAL IVP SCH (22:25)
[2016-11-17] VITALS (24 sets, daily range): BP systolic 140–205; BP diastolic 70–119
[2016-11-17] MEDS: HEPARIN PF for SUB-Q USE 5,000 UNIT/0.5 ML VIAL. SQ SCH ×3 (05:34→22:25)
[2016-11-17] MEDS: IPRATRPIUM/ALBUTEROL 0.5/2.5MG 3 ML NEBU. NEB SCH ×4 (06:58→20:09)
--- NOTE | 2016-11-17 08:11 | PDOC ---
Infectious Disease Note Subjective Subjective awake, says feeling better, up in chair ROS ROS no n/v/d/pain/sob Vital Sign Vital Signs Vital Signs Date Time Temp Pulse Resp B/P (MAP) Pulse Ox O2 Delivery O2 Flow Rate FiO2 11/17/16 06:52 95 Ventilator 11/17/16 06:00 77 20 169/94 (119) 11/17/16 04:00 99.1 99.1 Physical Exam PHYSICAL EXAM GENERAL: NAD, Alert on vent HEENT: PERRL, OC/OP NECK: Supple, no JVD, no LN LUNGS: Clear HEART: S1S2, no gallop, no murmur ABD: Soft, NT, no organomegaly, no rebound EXT: No edema, no cyanosis CDL A DRIVER: Alert, oriented x 3, no focal neurologic deficit SKIN: No rash IV: ok Labs Micro BC neg URINE CULTURE Final Final report URINE CULTURE RES 1 Final Klebsiella pneumoniae Greater than 100,000 colony forming units per mL ANTIMICROBIAL SUSCEPTIBILITY Final Comment S = Susceptible; I = Intermediate; R = Resistant P = Positive; N = Negative MICS are expressed in micrograms per mL Antibiotic RSLT#1 RSLT#2 RSLT#3 RSLT#4 Amoxicillin/Clavulanic Acid S Ampicillin R Cefepime S Ceftriaxone S Cefuroxime S Cephalothin S Ciprofloxacin S Ertapenem S Gentamicin S Imipenem S Levofloxacin S Nitrofurantoin S Piperacillin S Tetracycline S Tobramycin S Trimethoprim/Sulfa S Performed at: [address] [id number] Patient Observation Assistant: Yumiko Merritt MD, Phone: [phone] Objective Assessment Klebsiella UTI, POA Fever, better Leukocytosis, possibly reactive, c.diff negative Respiratory failure Ángel pulmonary infiltrate, CHF vs pneumonia Acute renal failure, improving Rhabdomyolysis, CK trending down Schizophrenia Plan Plan of Care Wean vent as per critical care team OK to transfer to LTAC off antibiotics CAITY SMITH MD Nov 17, 2016 08:11
[2016-11-17] MEDS: CETIRIZINE HCL 10 MG TABLET. PO SCH (10:08)
[2016-11-17] MEDS: NYSTATIN 100,000 UNITS/ML 5 ML ORAL.SUSP. SWSW SCH ×4 (10:08→22:23)
[2016-11-17] MEDS: predniSONE 20 MG TABLET PO SCH (10:08)
[2016-11-17] MEDS: diphenhydrAMINE 50 MG/ML VIAL IVP SCH ×3 (10:09→22:24)
--- NOTE | 2016-11-17 12:04 | PDOC ---
PROGRESS NOTES Chief Complaint Chief Complaint Acute hypoxic and hypercapnic resp failure with HAP, on vent with trach Fever and leukocytosis: urinary tract infection, POA, klebsiella Healthcare associated pneumonia possible gram-negative rods COPD morbid obesity, BMI 53 chronic diastolic Congestive heart failure , LV ejection fraction 65% Ckd with jerrod, vasomotor HX of schizophrenia, was in psych facility before admit here HTN, chronic tobaccoism Elevated CPK, unclear etiology Hypernatremia hypophosphatemia moderate malnutrition in morbid obesity diffuse edema, chf and malnutrition History of Present Illness History of Present Illness tube feeds, dobhoff no event trying to wean vent, doing well on pressure support 27/08, could pull about a liter, try to wean awake, following commands, doing better at communicating some white patches on tongue, start nystatin plan LTAC transfer, must document failed vent weanings to qualify, doing well here today, cont current Vitals Vitals Vital Signs Date Time Temp Pulse Resp B/P (MAP) Pulse Ox O2 Delivery O2 Flow Rate FiO2 11/17/16 11:12 94 Ventilator 11/17/16 06:00 77 20 169/94 (119) 11/17/16 04:00 99.1 99.1 Physical Exam Physical Exam trach, dressings: intact, no bleeding, no leak following commands Lungs: good vol, less wheeze Heart: S1 S2 General: Cooperative, No acute distress, Other (sedated) Heart: Regular rate, Normal S1, Normal S2 Lungs: Crackles Abdomen: Soft, No tenderness Extremities: Other (edema) Skin: No significant lesion Review of Systems Review of Systems no n.v.d no pain, does not feel SOA on vent has stooled Comment Review of Relevant I have reviewed the following items asif (where applicable) has been applied. Labs Laboratory Tests Test 11/15/16 12:45 11/16/16 08:00 O2 Saturation 88 % (92-99) 92 % (92-99) Arterial Blood pH 7.44 (7.35-7.45) 7.45 (7.35-7.45) Arterial Blood pCO2 at Patient Temp 38 mmHg (35-46) 37 mmHg (35-46) Arterial Blood pO2 at Patient Temp 57 mmHg (65-108) 65 mmHg (65-108) Arterial Blood HCO3 26 mmol/L (21-28) 26 mmol/L (21-28) Arterial Blood Base Excess 2 mmol/L (-3-3) 2 mmol/L (-3-3) FiO2 40 50 Microbiology 11/02/16 Blood Culture - Final, Complete NO GROWTH AFTER 5 DAYS 11/01/16 Sputum Culture - Final, Complete 11/01/16 Sputum Result 1 - Final, Complete 10/31/16 Urine Culture - Final, Complete 10/31/16 Urine Culture Result 1 (ISAIAS) - Final, Complete 10/31/16 Antimicrobic Susceptibility - Final, Complete Medications Current Medications Methylprednisolone Sodium Succinate (SOLU-Medrol 125MG VIAL) 125 mg 1X ONCE IV Last administered on 10/31/16 11:18; Start 10/31/16 at 11:00; Stop 10/31/16 at 11:01; Status DC Albuterol/ Ipratropium (Duoneb) 3 ml 1X ONCE NEB Last administered on 11:00; Start 10/31/16 at 11:00; Stop 10/31/16 at 11:01; Status DC Furosemide (Lasix) 40 mg 1X ONCE IVP Last administered on 10/31/16 11:17; Start 10/31/16 at 11:15; Stop 10/31/16 at 11:16; Status DC Vancomycin HCl (Vanco Per Pharmacy) 1 each PRN DAILY PRN MC SEE COMMENTS Last administered on 11/06/16 10:19; Start 10/31/16 at 11:30; Stop 11/06/16 at 14:40 ; Status DC Piperacillin Sod/ Tazobactam Sod (Zosyn Per Pharmacy) 1 each PRN DAILY PRN MC SEE COMMENTS; Start 10/31/16 at 11:30; Stop 11/02/16 at 08:44; Status DC Levofloxacin/ Dextrose (Levaquin Per Pharmacy) 1 each PRN DAILY PRN MC SEE COMMENTS; Start 10/31/16 at 11:30; Stop 10/31/16 at 12:57; Status DC Vancomycin HCl 2 gm/Sodium Chloride 500 ml @ 250 mls/hr 1X ONCE IV Last administered on 10/31/16 14:30; Start 10/31/16 at 11:30; Stop 10/31/16 at 13:29 ; Status DC Levofloxacin/ Dextrose 150 ml @ 100 mls/hr ONCE ONCE IV Last administered on 10/31/16 12:45; Start 10/31/16 at 11:30; Stop 10/31/16 at 12:59; Status DC Piperacillin Sod/ Tazobactam Sod 3.375 gm/Sodium Chloride 50 ml @ 100 mls/hr ONCE ONCE IV Last administered on 10/31/16 11:38; Start 10/31/16 at 11:45; Stop 10/31/16 at 12:14; Status DC Levofloxacin/ Dextrose 150 ml @ 100 mls/hr Q48H IV Last administered on 10:54; Start 11/02/16 at 10:00; Stop 11/05/16 at 09:18; Status DC Piperacillin Sod/ Tazobactam Sod 3.375 gm/Sodium Chloride 50 ml @ 100 mls/hr Q6HRS IV Last administered on 11/02/16 05:44; Start 10/31/16 at 18:00; Stop at 08:47; Status DC Acetaminophen (Tylenol) 650 mg PRN Q6HRS PRN PO FEVER Last administered on 11/01 20:26; Start 10/31/16 at 15:15; Stop 11/02/16 at 07:45; Status DC Ondansetron HCl (Zofran) 4 mg PRN Q6HRS PRN IV NAUSEA/VOMITING; Start 10/31/16 at 15:15 Morphine Sulfate 2 mg PRN Q2HR PRN IV PAIN Last administered on 11/16/16 14:34 ; Start 10/31/16 at 15:15 Tramadol HCl (Ultram) 50 mg PRN Q6HRS PRN PO PAIN; Start 10/31/16 at 15:15 Hydralazine HCl (Apresoline) 10 mg PRN Q4HRS PRN IVP ELEVATED BP, SEE COMMENTS Last administered on 11/08/16 05:13; Start 10/31/16 at 15:15 Docusate Sodium (Colace) 100 mg PRN DAILY PRN PO CONSTIPATION Last administered on 11/05/16 12:04; Start 10/31/16 at 15:15 Albuterol/ Ipratropium (Duoneb) 3 ml RTQID NEB Last administered on 11/17/16 11 :12; Start 10/31/16 at 16:00 Albuterol Sulfate (Ventolin Neb Soln) 2.5 mg PRN Q4HRS PRN NEB SHORTNESS OF BREATH; Start 10/31/16 at 15:15 Heparin Sodium (Porcine) (Heparin Sq) 5,000 unit Q8HRS SQ Last administered on 11/17/16 05:34; Start 10/31/16 at 22:00 Famotidine (Pepcid) 20 mg QHS IVP Last administered on 11/16/16 22:25; Start at 21:00 Vancomycin HCl 2 gm/Sodium Chloride 500 ml @ 250 mls/hr Q24H IV Last administered on 11/02/16 14:14; Start 11/01/16 at 14:00; Stop 11/02/16 at 14:24 ; Status DC Vancomycin HCl 1 each 1X ONCE MC Last administered on 11/02/16 13:30; Start 11/02/16 at 13:30; Stop 11/02/16 at 13:31; Status DC Sodium Chloride 1,000 ml @ 80 mls/hr [id number] IV Last administered on 08:27; Start 10/31/16 at 16:15; Stop 11/05/16 at 08:31; Status DC Sodium Chloride 1,000 ml @ 1,000 mls/hr 1X ONCE IV Last administered on 18:04; Start 10/31/16 at 14:00; Stop 10/31/16 at 17:23; Status DC Sodium Chloride 500 ml @ 500 mls/hr 1X ONCE IV Last administered on 17:30; Start 10/31/16 at 17:30; Stop 10/31/16 at 18:29; Status DC Fentanyl Citrate 30 ml @ 0 mls/hr CONT PRN IV PROTOCOL Last administered on 11/15 00:05; Start 10/31/16 at 18:30 Propofol 100 ml @ 0 mls/hr CONT PRN IV PER PROTOCOL Last administered on 19:00; Start 10/31/16 at 18:30 Chlorhexidine Gluconate (Peridex) 15 ml BID MM Last administered on 11/14/16 09 :32; Start 10/31/16 at 21:00; Stop 11/14/16 at 20:23; Status DC Artificial Tears (Artificial Tears) 1 drop PRN Q1HR PRN OU DRY EYE; Start 10/31 at 18:30 Midazolam HCl 100 ml @ 0 mls/hr CONT PRN IV PER PROTOCOL Last administered on 02:29; Start 10/31/16 at 18:30 Succinylcholine Chloride (Anectine) 200 mg STK-MED ONCE .ROUTE ; Start 10/31/16 at 18:43; Stop 10/31/16 at 18:44; Status DC Midazolam HCl (Versed) 5 mg STK-MED ONCE .ROUTE ; Start 10/31/16 at 18:45; Stop 10/31/16 at 18:46; Status DC Midazolam HCl (Versed) 5 mg 1X ONCE IV Last administered on 10/31/16 19:30; Start 10/31/16 at 19:30; Stop 10/31/16 at 19:31; Status DC Succinylcholine Chloride (Anectine) 200 mg STK-MED ONCE .ROUTE ; Start 10/31/16 at 18:45; Stop 11/01/16 at 08:13; Status DC Furosemide (Lasix) 20 mg 1X ONCE IVP Last administered on 11/01/16 13:48; Start 11/01/16 at 13:30; Stop 11/01/16 at 13:31; Status DC Sodium Chloride 500 ml @ 500 mls/hr 1X ONCE IV Last administered on 23:09; Start 11/01/16 at 23:15; Stop 11/02/16 at 00:14; Status DC Acetaminophen (Tylenol) 650 mg PRN Q6HRS PRN PEG MILD PAIN / TEMP Last administered on 11/05/16 16:39; Start 11/02/16 at 07:45 Piperacillin Sod/ Tazobactam Sod 4.5 gm/Sodium Chloride 100 ml @ 200 mls/hr Q6HRS IV Last administered on 11/16/16 05:58; Start 11/02/16 at 12:00; Stop 11/16/16 at 07:25; Status DC Sodium Chloride 500 ml @ 500 mls/hr 1X ONCE IV Last administered on 14:10; Start 11/02/16 at 13:00; Stop 11/02/16 at 13:59; Status DC Sodium Chloride 1,000 ml @ 75 mls/hr [id number] IV ; Start 11/02/16 at 13:00; Stop 11/02/16 at 13:25; Status DC Vancomycin HCl 1.75 gm/Sodium Chloride 500 ml @ 250 mls/hr Q18H IV Last administered on 11/06/16 09:13; Start 11/03/16 at 08:00; Stop 11/06/16 at 14:39 ; Status DC Vancomycin HCl 1 each 1X ONCE MC Last administered on 11/04/16 19:30; Start 11/04/16 at 19:30; Stop 11/04/16 at 19:31; Status DC Metoclopramide HCl (Reglan) 10 mg 1X ONCE IV Last administered on 11/03/16 16 :35; Start 11/03/16 at 15:45; Stop 11/03/16 at 15:46; Status DC Furosemide (Lasix) 20 mg 1X ONCE IVP Last administered on 11/04/16 10:54; Start 11/04/16 at 10:30; Stop 11/04/16 at 10:31; Status DC Metoclopramide HCl (Reglan) 10 mg 1X ONCE IV Last administered on 11/04/16 17 :15; Start 11/04/16 at 17:15; Stop 11/04/16 at 17:16; Status DC Magnesium Sulfate/ Dextrose 50 ml @ 25 mls/hr PRN DAILY PRN IV for Mag < 1.7 on am labs; Start 11/05/16 at 08:15 Hydrochlorothiazide (Hydrodiuril) 25 mg DAILY PO Last administered on 12:04; Start 11/05/16 at 09:00; Stop 11/06/16 at 11:08; Status DC Levofloxacin/ Dextrose 150 ml @ 100 mls/hr Q24H IV Last administered on 10:00; Start 11/05/16 at 10:00; Stop 11/06/16 at 14:39; Status DC Sodium Chloride 1,000 ml @ 75 mls/hr [id number] IV Last administered on 04:54; Start 11/05/16 at 15:45; Stop 11/06/16 at 09:26; Status DC Sodium Chloride 1,000 ml @ 75 mls/hr [id number] IV Last administered on 09:38; Start 11/06/16 at 09:30; Stop 11/07/16 at 07:37; Status DC Furosemide (Lasix) 20 mg 1X ONCE IVP Last administered on 11/06/16 09:38; Start 11/06/16 at 09:30; Stop 11/06/16 at 09:31; Status DC Potassium Phosphate 10 mmol/ Sodium Chloride 103.3333 ml @ 51.667 m... Q2H IV Last administered on 11/06/16 20:16; Start 11/06/16 at 13:30; Stop 11/06/16 at 17:29; Status DC Dextrose 1,000 ml @ 50 mls/hr Q20H IV Last administered on 11/07/16 09:40; Start 11/07/16 at 09:15; Stop 11/07/16 at 12:31; Status DC Dextrose 1,000 ml @ 100 mls/hr Q10H IV Last administered on 11/09/16 08:20; Start 11/07/16 at 19:30; Stop 11/09/16 at 14:39; Status DC Furosemide (Lasix) 20 mg 1X ONCE IVP Last administered on 11/08/16 09:17; Start 11/08/16 at 09:30; Stop 11/08/16 at 09:31; Status DC Saliva Substitute (Biotene Moisturizing Mouth) 2 spray PRN Q15MIN PRN PO DRY MOUTH; Start 11/08/16 at 17:30 Cetirizine HCl (ZyrTEC) 10 mg DAILY PO Last administered on 11/17/16 10:08; Start 11/10/16 at 09:00 Diphenhydramine HCl (Benadryl) 25 mg PRN Q6HRS PRN IVP ITCHING Last administered on 11/10/16 05:50; Start 11/09/16 at 10:30; Stop 11/10/16 at 14:00 ; Status DC Linezolid 300 ml @ 300 mls/hr Q12HR IV Last administered on 11/13/16 21:42; Start 11/10/16 at 10:00; Stop 11/14/16 at 07:40; Status DC Diphenhydramine HCl (Benadryl) 50 mg TID IVP Last administered on 11/17/16 10: 09; Start 11/10/16 at 14:00 Methylprednisolone Sodium Succinate (SOLU-Medrol 40MG VIAL) 40 mg Q12HR IV Last administered on 11/11/16 20:59; Start 11/10/16 at 11:00; Stop 11/12/16 at 08:09; Status DC Furosemide (Lasix) 60 mg 1X ONCE IVP Last administered on 11/11/16 10:26; Start 11/11/16 at 09:30; Stop 11/11/16 at 09:31; Status DC Prednisone (Prednisone) 40 mg DAILY PO Last administered on 11/17/16 10:08; Start 11/12/16 at 09:00 Sevoflurane (Ultane) 60 ml STK-MED ONCE IH ; Start 11/13/16 at 12:24; Stop 11/13 at 12:25; Status DC Fentanyl Citrate (Fentanyl 2ml Vial) 100 mcg STK-MED ONCE .ROUTE ; Start at 12:24; Stop 11/13/16 at 12:25; Status DC Midazolam HCl (Versed) 2 mg STK-MED ONCE .ROUTE ; Start 11/13/16 at 12:24; Stop 11/13/16 at 12:25; Status DC Vecuronium [place] (Norcuron Bolus) 10 mg STK-MED ONCE IV ; Start 11/13/16 at 12 :24; Stop 11/13/16 at 12:25; Status DC Fentanyl Citrate (Fentanyl 2ml Vial) 100 mcg STK-MED ONCE .ROUTE ; Start at 13:33; Stop 11/13/16 at 13:34; Status DC Potassium Chloride 50 ml @ 50 mls/hr Q1H IV Last administered on 11/13/16 20: 42; Start 11/13/16 at 16:15; Stop 11/13/16 at 18:14; Status DC Propofol 100 ml @ 0 mls/hr CONT PRN IV SEE I/O RECORD; Start 11/15/16 at 17:00; Status UNV Nystatin 5 ml [id number] Last administered on 11/17/16 10:08; Start 11/17/16 at 09:30 Active Scripts Active Reported Trazodone Hcl 100 Mg Tablet 100 Mg PO HS Polyethylene Glycol 3350 255 Gm Powder 17 Gm PO DAILY Olanzapine 20 Mg Tablet 2 Tab PO QHS Montelukast Sodium Tablet (Montelukast Sodium) 10 Mg Tablet 10 Mg PO HS Meloxicam 15 Mg Tablet 1 Tab PO DAILY Losartan Potassium 50 Mg Tablet 50 Mg PO DAILY Lorazepam 1 Mg Tablet 1 Mg PO HS Lasix (Furosemide) 40 Mg Tablet 40 Mg PO PRN DAILY Hydrochlorothiazide Tablet (Hydrochlorothiazide) 25 Mg Tablet 25 Mg PO DAILY Folic Acid 1 Mg Tablet 1 Mg PO DAILY Fluoxetine Hcl 40 Mg Capsule 40 Mg PO DAILY Famotidine 20 Mg Tablet 20 Mg PO BID Duoneb 0.5-3(2.5) Mg/3 Ml (Albuterol/Ipratropium) 3 Ml Ampul.neb 3 Ml NEB QID Docusate Sodium 100 Mg Capsule 1 Cap PO BID Clonidine Hcl 0.1 Mg Tablet 0.1 Mg PO QID Cetirizine Hcl 10 Mg Tablet 1 Tab PO DAILY Vitals/I & O Vital Sign - Last 24 Hours 11/16/16 11/16/16 11/16/16 11/16/16 12:10 13:00 13:05 14:00 Pulse 81 81 Resp 24 42 B/P (MAP) 170/86 (114) 174/91 (118) Pulse Ox 93 98 96 95 O2 Delivery Ventilator Ventilator Ventilator Ventilator 11/16/16 11/16/16 11/16/16 11/16/16 15:00 15:23 16:00 16:00 Pulse 75 86 Resp 28 25 B/P (MAP) 165/88 (113) 155/86 (109) Pulse Ox 96 96 95 O2 Delivery Ventilator Ventilator Mechanical Ventilator Ventilator 11/16/16 11/16/16 11/16/16 11/16/16 17:00 17:13 18:00 19:00 Pulse 84 87 76 Resp 34 29 29 B/P (MAP) 166/87 (113) 165/89 (114) 169/89 (115) Pulse Ox 93 95 94 94 O2 Delivery Ventilator Ventilator Ventilator Ventilator 11/16/16 11/16/16 11/16/16 11/16/16 19:37 20:00 20:00 21:00 Temp 99.0 99.0 Pulse 81 92 Resp 29 29 B/P (MAP) 176/85 (115) 171/96 (121) Pulse Ox 95 94 94 O2 Delivery Ventilator Mechanical Ventilator Ventilator Ventilator 11/16/16 11/16/16 11/16/16 11/16/16 22:00 23:00 23:15 23:59 Pulse 84 92 Resp 22 20 B/P (MAP) 169/91 (117) 171/96 (121) Pulse Ox 95 92 97 O2 Delivery Ventilator Ventilator Ventilator Mechanical Ventilator 11/17/16 11/17/16 11/17/16 11/17/16 00:00 01:00 01:40 02:00 Temp 98.3 98.3 Pulse 86 75 88 Resp 21 21 21 B/P (MAP) 170/88 (115) 140/75 (96) 170/86 (114) Pulse Ox 94 95 96 96 O2 Delivery Ventilator Ventilator Ventilator Ventilator 11/17/16 11/17/16 11/17/16 11/17/16 03:00 04:00 04:00 05:00 Temp 99.1 99.1 Pulse 83 79 89 Resp 21 20 20 B/P (MAP) 164/70 (101) 163/80 (107) 174/90 (118) Pulse Ox 95 95 96 O2 Delivery Ventilator Mechanical Ventilator Ventilator Ventilator 11/17/16 11/17/16 11/17/16 11/17/16 05:15 06:00 06:52 08:00 Pulse 77 Resp 20 B/P (MAP) 169/94 (119) Pulse Ox 96 96 95 O2 Delivery Ventilator Ventilator Ventilator Mechanical Ventilator 11/17/16 11/17/16 09:15 11:12 Pulse Ox 94 94 O2 Delivery Ventilator Ventilator Intake and Output 11/16/16 11/16/16 11/17/16 15:00 23:00 07:00 Intake Total 0 ml 972 ml 939 ml Output Total 1210 ml 865 ml 350 ml Balance -1210 ml 107 ml 589 ml ERYN RAMSEY MD Nov 17, 2016 12:04
[2016-11-17 12:54] LABS: BASO # 0.1 x10^3/uL (0.0-0.2); BASO % 1 % (0-3); EOS % 1 % (0-3); HEMATOCRIT 29.9 % (36.0-47.0); HEMOGLOBIN 9.3 g/dL (12.0-15.5); LYMPH # 2.2 x10^3/uL (1.0-4.8); LYMPH % 14 % (24-48); MEAN CORPUSCULAR HEMOGLOBIN 29 pg (25-35); MEAN CORPUSCULAR HGB CONC 31 g/dL (31-37); MEAN CORPUSCULAR VOLUME 93 fL (79-100); MONO % 4 % (0-9); NEUT % 80 % (31-73); PLATELET COUNT 397 x10^3/uL (140-400); RED BLOOD COUNT 3.22 x10^6/uL (3.50-5.40); RED CELL DISTRIBUTION WIDTH 17.7 % (11.5-14.5); WHITE BLOOD COUNT 15.2 x10^3/uL (4.0-11.0)
--- NOTE | 2016-11-17 14:19 | PDOC ---
PULMONARY PROGRESS NOTES Subjective UP IN A CHAIR, PT AWAKE FOLLOW COMMANDS Vitals Vital Signs Date Time Temp Pulse Resp B/P (MAP) Pulse Ox O2 Delivery O2 Flow Rate FiO2 11/17/16 12:46 96 Ventilator 11/17/16 06:00 77 20 169/94 (119) 11/17/16 04:00 99.1 99.1 ROS: No Nausea, No Chest Pain, No Abdominal Pain HEENT: Other Lungs: Crackles Cardiovascular: S1, S2 Abdomen: Soft, Non-tender Extremities: Other (edema) Skin: Warm Labs Laboratory Tests Test 11/16/16 08:00 11/17/16 12:45 O2 Saturation 92 % (92-99) Arterial Blood pH 7.45 (7.35-7.45) Arterial Blood pCO2 at Patient Temp 37 mmHg (35-46) Arterial Blood pO2 at Patient Temp 65 mmHg (65-108) Arterial Blood HCO3 26 mmol/L (21-28) Arterial Blood Base Excess 2 mmol/L (-3-3) FiO2 50 White Blood Count 15.2 x10^3/uL (4.0-11.0) Red Blood Count 3.22 x10^6/uL (3.50-5.40) Hemoglobin 9.3 g/dL (12.0-15.5) Hematocrit 29.9 % (36.0-47.0) Mean Corpuscular Volume 93 fL (79-100) Mean Corpuscular Hemoglobin 29 pg (25-35) Mean Corpuscular Hemoglobin Concent 31 g/dL (31-37) Red Cell Distribution Width 17.7 % (11.5-14.5) Platelet Count 397 x10^3/uL (140-400) Neutrophils (%) (Auto) 80 % (31-73) Lymphocytes (%) (Auto) 14 % (24-48) Monocytes (%) (Auto) 4 % (0-9) Eosinophils (%) (Auto) 1 % (0-3) Basophils (%) (Auto) 1 % (0-3) Neutrophils # (Auto) 12.2 x10^3uL (1.8-7.7) Lymphocytes # (Auto) 2.2 x10^3/uL (1.0-4.8) Monocytes # (Auto) 0.6 x10^3/uL (0.0-1.1) Eosinophils # (Auto) 0.2 x10^3/uL (0.0-0.7) Basophils # (Auto) 0.1 x10^3/uL (0.0-0.2) Laboratory Tests Test 11/17/16 12:45 White Blood Count 15.2 x10^3/uL (4.0-11.0) Red Blood Count 3.22 x10^6/uL (3.50-5.40) Hemoglobin 9.3 g/dL (12.0-15.5) Hematocrit 29.9 % (36.0-47.0) Mean Corpuscular Volume 93 fL (79-100) Mean Corpuscular Hemoglobin 29 pg (25-35) Mean Corpuscular Hemoglobin Concent 31 g/dL (31-37) Red Cell Distribution Width 17.7 % (11.5-14.5) Platelet Count 397 x10^3/uL (140-400) Neutrophils (%) (Auto) 80 % (31-73) Lymphocytes (%) (Auto) 14 % (24-48) Monocytes (%) (Auto) 4 % (0-9) Eosinophils (%) (Auto) 1 % (0-3) Basophils (%) (Auto) 1 % (0-3) Neutrophils # (Auto) 12.2 x10^3uL (1.8-7.7) Lymphocytes # (Auto) 2.2 x10^3/uL (1.0-4.8) Monocytes # (Auto) 0.6 x10^3/uL (0.0-1.1) Eosinophils # (Auto) 0.2 x10^3/uL (0.0-0.7) Basophils # (Auto) 0.1 x10^3/uL (0.0-0.2) Medications Active Scripts Medications Dose Route/Sig Max Daily Dose Days Date Category Trazodone Hcl 100 Mg Tablet 100 Mg PO HS 10/31/16 Reported Polyethylene Glycol 3350 255 Gm Powder 17 Gm PO DAILY 10/31/16 Reported Olanzapine 20 Mg Tablet 2 Tab PO QHS 10/31/16 Reported Montelukast Sodium Tablet (Montelukast Sodium) 10 Mg Tablet 10 Mg PO HS 10/31/16 Reported Meloxicam 15 Mg Tablet 1 Tab PO DAILY 10/31/16 Reported Losartan Potassium 50 Mg Tablet 50 Mg PO DAILY 10/31/16 Reported Lorazepam 1 Mg Tablet 1 Mg PO HS 10/31/16 Reported Lasix (Furosemide) 40 Mg Tablet 40 Mg PO PRN DAILY 10/31/16 Reported Hydrochlorothiazide Tablet (Hydrochlorothiazide) 25 Mg Tablet 25 Mg PO DAILY 10/31/16 Reported Folic Acid 1 Mg Tablet 1 Mg PO DAILY 10/31/16 Reported Fluoxetine Hcl 40 Mg Capsule 40 Mg PO DAILY 10/31/16 Reported Famotidine 20 Mg Tablet 20 Mg PO BID 10/31/16 Reported Duoneb 0.5-3(2.5) Mg/3 Ml (Albuterol/Ipratropium) 3 Ml Ampul.neb 3 Ml NEB QID 10/31/16 Reported Docusate Sodium 100 Mg Capsule 1 Cap PO BID 10/31/16 Reported Clonidine Hcl 0.1 Mg Tablet 0.1 Mg PO QID 10/31/16 Reported Cetirizine Hcl 10 Mg Tablet 1 Tab PO DAILY 10/31/16 Reported Impression . A/C HYPERCAPNIA HYPOXEMIC RESP FAILURE MULTIFACTORIAL FAILED BIPAP INTUBATED S/P TRACH 11/13 ACUTE HEART FAILURE SUSPECT DIASTOLIC TALHA/OHS ACUTE RENAL FAILURE MORBID OBESITY FEVER POSSIBLE PNEUMONIA GRAM NEG/GRAM POS POSSIBLE SEPSIS/FEVER UTI KLEB s/p RHABDO LARYNGEAL EDEMA Plan . PS TOLERATED WILL CONTINUE THE SAME FOLLOW NEPHRO INPUT ANTIBX PER ID DVT AND GI PROPH NUTRITION PER TF CLIVE MEDRANO MD Nov 17, 2016 14:19
[2016-11-17] MEDS: MORPHINE SULFATE 2 MG/ML DISP.SYRIN. IV PRN (14:25)
[2016-11-17] MEDS: hydrALAZINE 20 MG/ML VIAL. IVP PRN (14:25)
[2016-11-17 14:34] LABS: ALBUMIN 3.1 g/dL (3.4-5.0); ALBUMIN/GLOBULIN RATIO 0.6 (1.0-1.7); CALCIUM 9.4 mg/dL (8.5-10.1); CREATININE 0.8 mg/dL (0.6-1.0); GFR 87.7; TOTAL BILIRUBIN 0.3 mg/dL (0.2-1.0); TOTAL PROTEIN 7.9 g/dL (6.4-8.2)
[2016-11-17] MEDS: FAMOTIDINE 20 MG/2 ML VIAL IVP SCH (22:23)
[2016-11-18] VITALS (24 sets, daily range): BP systolic 124–195; BP diastolic 64–98
[2016-11-18] MEDS: HEPARIN PF for SUB-Q USE 5,000 UNIT/0.5 ML VIAL. SQ SCH ×3 (05:50→21:43)
[2016-11-18] MEDS: hydrALAZINE 20 MG/ML VIAL. IVP PRN (05:51)
--- NOTE | 2016-11-18 07:10 | PDOC ---
PULMONARY PROGRESS NOTES Subjective NO RESP COMPLAINTS Vitals Vital Signs Date Time Temp Pulse Resp B/P (MAP) Pulse Ox O2 Delivery O2 Flow Rate FiO2 11/18/16 06:00 95 24 195/98 (130) 97 Ventilator 11/18/16 04:00 99.4 99.4 ROS: No Nausea, No Chest Pain, No Abdominal Pain, No Increase Cough Lungs: Clear Cardiovascular: S1, S2 Abdomen: Soft, Non-tender Neuro Exam: Alert, Oriented Extremities: Other (edema) Skin: Warm Labs Laboratory Tests Test 11/16/16 08:00 11/17/16 12:45 11/17/16 14:00 O2 Saturation 92 % (92-99) Arterial Blood pH 7.45 (7.35-7.45) Arterial Blood pCO2 at Patient Temp 37 mmHg (35-46) Arterial Blood pO2 at Patient Temp 65 mmHg (65-108) Arterial Blood HCO3 26 mmol/L (21-28) Arterial Blood Base Excess 2 mmol/L (-3-3) FiO2 50 White Blood Count 15.2 x10^3/uL (4.0-11.0) Red Blood Count 3.22 x10^6/uL (3.50-5.40) Hemoglobin 9.3 g/dL (12.0-15.5) Hematocrit 29.9 % (36.0-47.0) Mean Corpuscular Volume 93 fL (79-100) Mean Corpuscular Hemoglobin 29 pg (25-35) Mean Corpuscular Hemoglobin Concent 31 g/dL (31-37) Red Cell Distribution Width 17.7 % (11.5-14.5) Platelet Count 397 x10^3/uL (140-400) Neutrophils (%) (Auto) 80 % (31-73) Lymphocytes (%) (Auto) 14 % (24-48) Monocytes (%) (Auto) 4 % (0-9) Eosinophils (%) (Auto) 1 % (0-3) Basophils (%) (Auto) 1 % (0-3) Neutrophils # (Auto) 12.2 x10^3uL (1.8-7.7) Lymphocytes # (Auto) 2.2 x10^3/uL (1.0-4.8) Monocytes # (Auto) 0.6 x10^3/uL (0.0-1.1) Eosinophils # (Auto) 0.2 x10^3/uL (0.0-0.7) Basophils # (Auto) 0.1 x10^3/uL (0.0-0.2) Sodium Level 140 mmol/L (136-145) Potassium Level 4.0 mmol/L (3.5-5.1) Chloride Level 103 mmol/L (98-107) Carbon Dioxide Level 29 mmol/L (21-32) Anion Gap 8 (6-14) Blood Urea Nitrogen 15 mg/dL (7-20) Creatinine 0.8 mg/dL (0.6-1.0) Estimated GFR (Cockcroft-Gault) 87.7 BUN/Creatinine Ratio 19 (6-20) Glucose Level 167 mg/dL (70-99) Calcium Level 9.4 mg/dL (8.5-10.1) Total Bilirubin 0.3 mg/dL (0.2-1.0) Aspartate Amino Transf (AST/SGOT) 57 U/L (15-37) Alanine Aminotransferase (ALT/SGPT) 181 U/L (14-59) Alkaline Phosphatase 145 U/L (46-116) Total Protein 7.9 g/dL (6.4-8.2) Albumin 3.1 g/dL (3.4-5.0) Albumin/Globulin Ratio 0.6 (1.0-1.7) Laboratory Tests Test 11/17/16 12:45 11/17/16 14:00 White Blood Count 15.2 x10^3/uL (4.0-11.0) Red Blood Count 3.22 x10^6/uL (3.50-5.40) Hemoglobin 9.3 g/dL (12.0-15.5) Hematocrit 29.9 % (36.0-47.0) Mean Corpuscular Volume 93 fL (79-100) Mean Corpuscular Hemoglobin 29 pg (25-35) Mean Corpuscular Hemoglobin Concent 31 g/dL (31-37) Red Cell Distribution Width 17.7 % (11.5-14.5) Platelet Count 397 x10^3/uL (140-400) Neutrophils (%) (Auto) 80 % (31-73) Lymphocytes (%) (Auto) 14 % (24-48) Monocytes (%) (Auto) 4 % (0-9) Eosinophils (%) (Auto) 1 % (0-3) Basophils (%) (Auto) 1 % (0-3) Neutrophils # (Auto) 12.2 x10^3uL (1.8-7.7) Lymphocytes # (Auto) 2.2 x10^3/uL (1.0-4.8) Monocytes # (Auto) 0.6 x10^3/uL (0.0-1.1) Eosinophils # (Auto) 0.2 x10^3/uL (0.0-0.7) Basophils # (Auto) 0.1 x10^3/uL (0.0-0.2) Sodium Level 140 mmol/L (136-145) Potassium Level 4.0 mmol/L (3.5-5.1) Chloride Level 103 mmol/L (98-107) Carbon Dioxide Level 29 mmol/L (21-32) Anion Gap 8 (6-14) Blood Urea Nitrogen 15 mg/dL (7-20) Creatinine 0.8 mg/dL (0.6-1.0) Estimated GFR (Cockcroft-Gault) 87.7 BUN/Creatinine Ratio 19 (6-20) Glucose Level 167 mg/dL (70-99) Calcium Level 9.4 mg/dL (8.5-10.1) Total Bilirubin 0.3 mg/dL (0.2-1.0) Aspartate Amino Transf (AST/SGOT) 57 U/L (15-37) Alanine Aminotransferase (ALT/SGPT) 181 U/L (14-59) Alkaline Phosphatase 145 U/L (46-116) Total Protein 7.9 g/dL (6.4-8.2) Albumin 3.1 g/dL (3.4-5.0) Albumin/Globulin Ratio 0.6 (1.0-1.7) Medications Active Scripts Medications Dose Route/Sig Max Daily Dose Days Date Category Trazodone Hcl 100 Mg Tablet 100 Mg PO HS 10/31/16 Reported Polyethylene Glycol 3350 255 Gm Powder 17 Gm PO DAILY 10/31/16 Reported Olanzapine 20 Mg Tablet 2 Tab PO QHS 10/31/16 Reported Montelukast Sodium Tablet (Montelukast Sodium) 10 Mg Tablet 10 Mg PO HS 10/31/16 Reported Meloxicam 15 Mg Tablet 1 Tab PO DAILY 10/31/16 Reported Losartan Potassium 50 Mg Tablet 50 Mg PO DAILY 10/31/16 Reported Lorazepam 1 Mg Tablet 1 Mg PO HS 10/31/16 Reported Lasix (Furosemide) 40 Mg Tablet 40 Mg PO PRN DAILY 10/31/16 Reported Hydrochlorothiazide Tablet (Hydrochlorothiazide) 25 Mg Tablet 25 Mg PO DAILY 10/31/16 Reported Folic Acid 1 Mg Tablet 1 Mg PO DAILY 10/31/16 Reported Fluoxetine Hcl 40 Mg Capsule 40 Mg PO DAILY 10/31/16 Reported Famotidine 20 Mg Tablet 20 Mg PO BID 10/31/16 Reported Duoneb 0.5-3(2.5) Mg/3 Ml (Albuterol/Ipratropium) 3 Ml Ampul.neb 3 Ml NEB QID 10/31/16 Reported Docusate Sodium 100 Mg Capsule 1 Cap PO BID 10/31/16 Reported Clonidine Hcl 0.1 Mg Tablet 0.1 Mg PO QID 10/31/16 Reported Cetirizine Hcl 10 Mg Tablet 1 Tab PO DAILY 10/31/16 Reported Impression . A/C HYPERCAPNIA HYPOXEMIC RESP FAILURE MULTIFACTORIAL FAILED BIPAP INTUBATED S/P TRACH 11/13 ACUTE HEART FAILURE SUSPECT DIASTOLIC TALHA/OHS ACUTE RENAL FAILURE MORBID OBESITY FEVER POSSIBLE PNEUMONIA GRAM NEG/GRAM POS IMPROVED UTI KLEB s/p RHABDO LARYNGEAL EDEMA Plan . WEAN TOLEREATED PS TOLERATED WILL CONTINUE THE SAME FOLLOW NEPHRO INPUT ANTIBX PER ID DVT AND GI PROPH NUTRITION PER TF CLIVE MEDRANO MD Nov 18, 2016 07:10
[2016-11-18] MEDS: IPRATRPIUM/ALBUTEROL 0.5/2.5MG 3 ML NEBU. NEB SCH ×4 (07:13→19:31)
[2016-11-18] MEDS: NYSTATIN 100,000 UNITS/ML 5 ML ORAL.SUSP. SWSW SCH ×2 (09:00→21:00)
--- NOTE | 2016-11-18 10:31 | PDOC ---
PROGRESS NOTES Chief Complaint Chief Complaint Acute hypoxic and hypercapnic resp failure with HAP, on vent with trach Fever and leukocytosis: urinary tract infection, POA, klebsiella Healthcare associated pneumonia possible gram-negative rods COPD morbid obesity, BMI 53 chronic diastolic Congestive heart failure , LV ejection fraction 65% Ckd with jerrod, vasomotor HX of schizophrenia, was in psych facility before admit here HTN, chronic tobaccoism hypophosphatemia moderate malnutrition in morbid obesity diffuse edema, chf and malnutrition History of Present Illness History of Present Illness tube feeds, dobhoff no event trying to wean vent, doing well on pressure support 27/08, max vol. less than yesterday try to wean awake, following commands, doing better at communicating planning LTAC transfer, failed wean from vent yesterday, try again today Vitals Vitals Vital Signs Date Time Temp Pulse Resp B/P (MAP) Pulse Ox O2 Delivery O2 Flow Rate FiO2 11/18/16 09:00 94 Ventilator 11/18/16 06:00 95 24 195/98 (130) 11/18/16 04:00 99.4 99.4 Physical Exam Physical Exam trach, dressings: intact, no bleeding, no leak following commands Lungs: good vol, less wheeze Heart: S1 S2 General: Cooperative, No acute distress, Other (sedated) Heart: Regular rate, Normal S1, Normal S2 Lungs: Clear Abdomen: Soft, No tenderness Extremities: Other (edema) Skin: No rashes, No significant lesion Labs LABS Laboratory Tests Test 11/17/16 12:45 11/17/16 14:00 White Blood Count 15.2 x10^3/uL (4.0-11.0) Red Blood Count 3.22 x10^6/uL (3.50-5.40) Hemoglobin 9.3 g/dL (12.0-15.5) Hematocrit 29.9 % (36.0-47.0) Mean Corpuscular Volume 93 fL (79-100) Mean Corpuscular Hemoglobin 29 pg (25-35) Mean Corpuscular Hemoglobin Concent 31 g/dL (31-37) Red Cell Distribution Width 17.7 % (11.5-14.5) Platelet Count 397 x10^3/uL (140-400) Neutrophils (%) (Auto) 80 % (31-73) Lymphocytes (%) (Auto) 14 % (24-48) Monocytes (%) (Auto) 4 % (0-9) Eosinophils (%) (Auto) 1 % (0-3) Basophils (%) (Auto) 1 % (0-3) Neutrophils # (Auto) 12.2 x10^3uL (1.8-7.7) Lymphocytes # (Auto) 2.2 x10^3/uL (1.0-4.8) Monocytes # (Auto) 0.6 x10^3/uL (0.0-1.1) Eosinophils # (Auto) 0.2 x10^3/uL (0.0-0.7) Basophils # (Auto) 0.1 x10^3/uL (0.0-0.2) Sodium Level 140 mmol/L (136-145) Potassium Level 4.0 mmol/L (3.5-5.1) Chloride Level 103 mmol/L (98-107) Carbon Dioxide Level 29 mmol/L (21-32) Anion Gap 8 (6-14) Blood Urea Nitrogen 15 mg/dL (7-20) Creatinine 0.8 mg/dL (0.6-1.0) Estimated GFR (Cockcroft-Gault) 87.7 BUN/Creatinine Ratio 19 (6-20) Glucose Level 167 mg/dL (70-99) Calcium Level 9.4 mg/dL (8.5-10.1) Total Bilirubin 0.3 mg/dL (0.2-1.0) Aspartate Amino Transf (AST/SGOT) 57 U/L (15-37) Alanine Aminotransferase (ALT/SGPT) 181 U/L (14-59) Alkaline Phosphatase 145 U/L (46-116) Total Protein 7.9 g/dL (6.4-8.2) Albumin 3.1 g/dL (3.4-5.0) Albumin/Globulin Ratio 0.6 (1.0-1.7) Comment Review of Relevant I have reviewed the following items asif (where applicable) has been applied. Labs Laboratory Tests Test 11/17/16 12:45 11/17/16 14:00 White Blood Count 15.2 x10^3/uL (4.0-11.0) Red Blood Count 3.22 x10^6/uL (3.50-5.40) Hemoglobin 9.3 g/dL (12.0-15.5) Hematocrit 29.9 % (36.0-47.0) Mean Corpuscular Volume 93 fL (79-100) Mean Corpuscular Hemoglobin 29 pg (25-35) Mean Corpuscular Hemoglobin Concent 31 g/dL (31-37) Red Cell Distribution Width 17.7 % (11.5-14.5) Platelet Count 397 x10^3/uL (140-400) Neutrophils (%) (Auto) 80 % (31-73) Lymphocytes (%) (Auto) 14 % (24-48) Monocytes (%) (Auto) 4 % (0-9) Eosinophils (%) (Auto) 1 % (0-3) Basophils (%) (Auto) 1 % (0-3) Neutrophils # (Auto) 12.2 x10^3uL (1.8-7.7) Lymphocytes # (Auto) 2.2 x10^3/uL (1.0-4.8) Monocytes # (Auto) 0.6 x10^3/uL (0.0-1.1) Eosinophils # (Auto) 0.2 x10^3/uL (0.0-0.7) Basophils # (Auto) 0.1 x10^3/uL (0.0-0.2) Sodium Level 140 mmol/L (136-145) Potassium Level 4.0 mmol/L (3.5-5.1) Chloride Level 103 mmol/L (98-107) Carbon Dioxide Level 29 mmol/L (21-32) Anion Gap 8 (6-14) Blood Urea Nitrogen 15 mg/dL (7-20) Creatinine 0.8 mg/dL (0.6-1.0) Estimated GFR (Cockcroft-Gault) 87.7 BUN/Creatinine Ratio 19 (6-20) Glucose Level 167 mg/dL (70-99) Calcium Level 9.4 mg/dL (8.5-10.1) Total Bilirubin 0.3 mg/dL (0.2-1.0) Aspartate Amino Transf (AST/SGOT) 57 U/L (15-37) Alanine Aminotransferase (ALT/SGPT) 181 U/L (14-59) Alkaline Phosphatase 145 U/L (46-116) Total Protein 7.9 g/dL (6.4-8.2) Albumin 3.1 g/dL (3.4-5.0) Albumin/Globulin Ratio 0.6 (1.0-1.7) Laboratory Tests Test 11/17/16 12:45 11/17/16 14:00 White Blood Count 15.2 x10^3/uL (4.0-11.0) Red Blood Count 3.22 x10^6/uL (3.50-5.40) Hemoglobin 9.3 g/dL (12.0-15.5) Hematocrit 29.9 % (36.0-47.0) Mean Corpuscular Volume 93 fL (79-100) Mean Corpuscular Hemoglobin 29 pg (25-35) Mean Corpuscular Hemoglobin Concent 31 g/dL (31-37) Red Cell Distribution Width 17.7 % (11.5-14.5) Platelet Count 397 x10^3/uL (140-400) Neutrophils (%) (Auto) 80 % (31-73) Lymphocytes (%) (Auto) 14 % (24-48) Monocytes (%) (Auto) 4 % (0-9) Eosinophils (%) (Auto) 1 % (0-3) Basophils (%) (Auto) 1 % (0-3) Neutrophils # (Auto) 12.2 x10^3uL (1.8-7.7) Lymphocytes # (Auto) 2.2 x10^3/uL (1.0-4.8) Monocytes # (Auto) 0.6 x10^3/uL (0.0-1.1) Eosinophils # (Auto) 0.2 x10^3/uL (0.0-0.7) Basophils # (Auto) 0.1 x10^3/uL (0.0-0.2) Sodium Level 140 mmol/L (136-145) Potassium Level 4.0 mmol/L (3.5-5.1) Chloride Level 103 mmol/L (98-107) Carbon Dioxide Level 29 mmol/L (21-32) Anion Gap 8 (6-14) Blood Urea Nitrogen 15 mg/dL (7-20) Creatinine 0.8 mg/dL (0.6-1.0) Estimated GFR (Cockcroft-Gault) 87.7 BUN/Creatinine Ratio 19 (6-20) Glucose Level 167 mg/dL (70-99) Calcium Level 9.4 mg/dL (8.5-10.1) Total Bilirubin 0.3 mg/dL (0.2-1.0) Aspartate Amino Transf (AST/SGOT) 57 U/L (15-37) Alanine Aminotransferase (ALT/SGPT) 181 U/L (14-59) Alkaline Phosphatase 145 U/L (46-116) Total Protein 7.9 g/dL (6.4-8.2) Albumin 3.1 g/dL (3.4-5.0) Albumin/Globulin Ratio 0.6 (1.0-1.7) Microbiology 11/02/16 Blood Culture - Final, Complete NO GROWTH AFTER 5 DAYS 11/01/16 Sputum Culture - Final, Complete 11/01/16 Sputum Result 1 - Final, Complete 10/31/16 Urine Culture - Final, Complete 10/31/16 Urine Culture Result 1 (ISAIAS) - Final, Complete 10/31/16 Antimicrobic Susceptibility - Final, Complete Medications Current Medications Methylprednisolone Sodium Succinate (SOLU-Medrol 125MG VIAL) 125 mg 1X ONCE IV Last administered on 10/31/16 11:18; Start 10/31/16 at 11:00; Stop 10/31/16 at 11:01; Status DC Albuterol/ Ipratropium (Duoneb) 3 ml 1X ONCE NEB Last administered on 11:00; Start 10/31/16 at 11:00; Stop 10/31/16 at 11:01; Status DC Furosemide (Lasix) 40 mg 1X ONCE IVP Last administered on 10/31/16 11:17; Start 10/31/16 at 11:15; Stop 10/31/16 at 11:16; Status DC Vancomycin HCl (Vanco Per Pharmacy) 1 each PRN DAILY PRN MC SEE COMMENTS Last administered on 11/06/16 10:19; Start 10/31/16 at 11:30; Stop 11/06/16 at 14:40 ; Status DC Piperacillin Sod/ Tazobactam Sod (Zosyn Per Pharmacy) 1 each PRN DAILY PRN MC SEE COMMENTS; Start 10/31/16 at 11:30; Stop 11/02/16 at 08:44; Status DC Levofloxacin/ Dextrose (Levaquin Per Pharmacy) 1 each PRN DAILY PRN MC SEE COMMENTS; Start 10/31/16 at 11:30; Stop 10/31/16 at 12:57; Status DC Vancomycin HCl 2 gm/Sodium Chloride 500 ml @ 250 mls/hr 1X ONCE IV Last administered on 10/31/16 14:30; Start 10/31/16 at 11:30; Stop 10/31/16 at 13:29 ; Status DC Levofloxacin/ Dextrose 150 ml @ 100 mls/hr ONCE ONCE IV Last administered on 10/31/16 12:45; Start 10/31/16 at 11:30; Stop 10/31/16 at 12:59; Status DC Piperacillin Sod/ Tazobactam Sod 3.375 gm/Sodium Chloride 50 ml @ 100 mls/hr ONCE ONCE IV Last administered on 10/31/16 11:38; Start 10/31/16 at 11:45; Stop 10/31/16 at 12:14; Status DC Levofloxacin/ Dextrose 150 ml @ 100 mls/hr Q48H IV Last administered on 10:54; Start 11/02/16 at 10:00; Stop 11/05/16 at 09:18; Status DC Piperacillin Sod/ Tazobactam Sod 3.375 gm/Sodium Chloride 50 ml @ 100 mls/hr Q6HRS IV Last administered on 11/02/16 05:44; Start 10/31/16 at 18:00; Stop at 08:47; Status DC Acetaminophen (Tylenol) 650 mg PRN Q6HRS PRN PO FEVER Last administered on 11/01 20:26; Start 10/31/16 at 15:15; Stop 11/02/16 at 07:45; Status DC Ondansetron HCl (Zofran) 4 mg PRN Q6HRS PRN IV NAUSEA/VOMITING; Start 10/31/16 at 15:15 Morphine Sulfate 2 mg PRN Q2HR PRN IV PAIN Last administered on 11/17/16 14:25 ; Start 10/31/16 at 15:15 Tramadol HCl (Ultram) 50 mg PRN Q6HRS PRN PO PAIN; Start 10/31/16 at 15:15 Hydralazine HCl (Apresoline) 10 mg PRN Q4HRS PRN IVP ELEVATED BP, SEE COMMENTS Last administered on 11/18/16 05:51; Start 10/31/16 at 15:15 Docusate Sodium (Colace) 100 mg PRN DAILY PRN PO CONSTIPATION Last administered on 11/05/16 12:04; Start 10/31/16 at 15:15 Albuterol/ Ipratropium (Duoneb) 3 ml RTQID NEB Last administered on 11/18/16 07 :13; Start 10/31/16 at 16:00 Albuterol Sulfate (Ventolin Neb Soln) 2.5 mg PRN Q4HRS PRN NEB SHORTNESS OF BREATH; Start 10/31/16 at 15:15 Heparin Sodium (Porcine) (Heparin Sq) 5,000 unit Q8HRS SQ Last administered on 11/18/16 05:50; Start 10/31/16 at 22:00 Famotidine (Pepcid) 20 mg QHS IVP Last administered on 11/17/16 22:23; Start at 21:00 Vancomycin HCl 2 gm/Sodium Chloride 500 ml @ 250 mls/hr Q24H IV Last administered on 11/02/16 14:14; Start 11/01/16 at 14:00; Stop 11/02/16 at 14:24 ; Status DC Vancomycin HCl 1 each 1X ONCE MC Last administered on 11/02/16 13:30; Start 11/02/16 at 13:30; Stop 11/02/16 at 13:31; Status DC Sodium Chloride 1,000 ml @ 80 mls/hr [id number] IV Last administered on 08:27; Start 10/31/16 at 16:15; Stop 11/05/16 at 08:31; Status DC Sodium Chloride 1,000 ml @ 1,000 mls/hr 1X ONCE IV Last administered on 18:04; Start 10/31/16 at 14:00; Stop 10/31/16 at 17:23; Status DC Sodium Chloride 500 ml @ 500 mls/hr 1X ONCE IV Last administered on 17:30; Start 10/31/16 at 17:30; Stop 10/31/16 at 18:29; Status DC Fentanyl Citrate 30 ml @ 0 mls/hr CONT PRN IV PROTOCOL Last administered on 11/15 00:05; Start 10/31/16 at 18:30 Propofol 100 ml @ 0 mls/hr CONT PRN IV PER PROTOCOL Last administered on 19:00; Start 10/31/16 at 18:30 Chlorhexidine Gluconate (Peridex) 15 ml BID MM Last administered on 11/14/16 09 :32; Start 10/31/16 at 21:00; Stop 11/14/16 at 20:23; Status DC Artificial Tears (Artificial Tears) 1 drop PRN Q1HR PRN OU DRY EYE; Start 10/31 at 18:30 Midazolam HCl 100 ml @ 0 mls/hr CONT PRN IV PER PROTOCOL Last administered on 02:29; Start 10/31/16 at 18:30 Succinylcholine Chloride (Anectine) 200 mg STK-MED ONCE .ROUTE ; Start 10/31/16 at 18:43; Stop 10/31/16 at 18:44; Status DC Midazolam HCl (Versed) 5 mg STK-MED ONCE .ROUTE ; Start 10/31/16 at 18:45; Stop 10/31/16 at 18:46; Status DC Midazolam HCl (Versed) 5 mg 1X ONCE IV Last administered on 10/31/16 19:30; Start 10/31/16 at 19:30; Stop 10/31/16 at 19:31; Status DC Succinylcholine Chloride (Anectine) 200 mg STK-MED ONCE .ROUTE ; Start 10/31/16 at 18:45; Stop 11/01/16 at 08:13; Status DC Furosemide (Lasix) 20 mg 1X ONCE IVP Last administered on 11/01/16 13:48; Start 11/01/16 at 13:30; Stop 11/01/16 at 13:31; Status DC Sodium Chloride 500 ml @ 500 mls/hr 1X ONCE IV Last administered on 23:09; Start 11/01/16 at 23:15; Stop 11/02/16 at 00:14; Status DC Acetaminophen (Tylenol) 650 mg PRN Q6HRS PRN PEG MILD PAIN / TEMP Last administered on 11/05/16 16:39; Start 11/02/16 at 07:45 Piperacillin Sod/ Tazobactam Sod 4.5 gm/Sodium Chloride 100 ml @ 200 mls/hr Q6HRS IV Last administered on 11/16/16 05:58; Start 11/02/16 at 12:00; Stop 11/16/16 at 07:25; Status DC Sodium Chloride 500 ml @ 500 mls/hr 1X ONCE IV Last administered on 14:10; Start 11/02/16 at 13:00; Stop 11/02/16 at 13:59; Status DC Sodium Chloride 1,000 ml @ 75 mls/hr [id number] IV ; Start 11/02/16 at 13:00; Stop 11/02/16 at 13:25; Status DC Vancomycin HCl 1.75 gm/Sodium Chloride 500 ml @ 250 mls/hr Q18H IV Last administered on 11/06/16 09:13; Start 11/03/16 at 08:00; Stop 11/06/16 at 14:39 ; Status DC Vancomycin HCl 1 each 1X ONCE MC Last administered on 11/04/16 19:30; Start 11/04/16 at 19:30; Stop 11/04/16 at 19:31; Status DC Metoclopramide HCl (Reglan) 10 mg 1X ONCE IV Last administered on 11/03/16 16 :35; Start 11/03/16 at 15:45; Stop 11/03/16 at 15:46; Status DC Furosemide (Lasix) 20 mg 1X ONCE IVP Last administered on 11/04/16 10:54; Start 11/04/16 at 10:30; Stop 11/04/16 at 10:31; Status DC Metoclopramide HCl (Reglan) 10 mg 1X ONCE IV Last administered on 11/04/16 17 :15; Start 11/04/16 at 17:15; Stop 11/04/16 at 17:16; Status DC Magnesium Sulfate/ Dextrose 50 ml @ 25 mls/hr PRN DAILY PRN IV for Mag < 1.7 on am labs; Start 11/05/16 at 08:15 Hydrochlorothiazide (Hydrodiuril) 25 mg DAILY PO Last administered on 12:04; Start 11/05/16 at 09:00; Stop 11/06/16 at 11:08; Status DC Levofloxacin/ Dextrose 150 ml @ 100 mls/hr Q24H IV Last administered on 10:00; Start 11/05/16 at 10:00; Stop 11/06/16 at 14:39; Status DC Sodium Chloride 1,000 ml @ 75 mls/hr [id number] IV Last administered on 04:54; Start 11/05/16 at 15:45; Stop 11/06/16 at 09:26; Status DC Sodium Chloride 1,000 ml @ 75 mls/hr [id number] IV Last administered on 09:38; Start 11/06/16 at 09:30; Stop 11/07/16 at 07:37; Status DC Furosemide (Lasix) 20 mg 1X ONCE IVP Last administered on 11/06/16 09:38; Start 11/06/16 at 09:30; Stop 11/06/16 at 09:31; Status DC Potassium Phosphate 10 mmol/ Sodium Chloride 103.3333 ml @ 51.667 m... Q2H IV Last administered on 11/06/16 20:16; Start 11/06/16 at 13:30; Stop 11/06/16 at 17:29; Status DC Dextrose 1,000 ml @ 50 mls/hr Q20H IV Last administered on 11/07/16 09:40; Start 11/07/16 at 09:15; Stop 11/07/16 at 12:31; Status DC Dextrose 1,000 ml @ 100 mls/hr Q10H IV Last administered on 11/09/16 08:20; Start 11/07/16 at 19:30; Stop 11/09/16 at 14:39; Status DC Furosemide (Lasix) 20 mg 1X ONCE IVP Last administered on 11/08/16 09:17; Start 11/08/16 at 09:30; Stop 11/08/16 at 09:31; Status DC Saliva Substitute (Biotene Moisturizing Mouth) 2 spray PRN Q15MIN PRN PO DRY MOUTH; Start 11/08/16 at 17:30 Cetirizine HCl (ZyrTEC) 10 mg DAILY PO Last administered on 11/17/16 10:08; Start 11/10/16 at 09:00 Diphenhydramine HCl (Benadryl) 25 mg PRN Q6HRS PRN IVP ITCHING Last administered on 11/10/16 05:50; Start 11/09/16 at 10:30; Stop 11/10/16 at 14:00 ; Status DC Linezolid 300 ml @ 300 mls/hr Q12HR IV Last administered on 11/13/16 21:42; Start 11/10/16 at 10:00; Stop 11/14/16 at 07:40; Status DC Diphenhydramine HCl (Benadryl) 50 mg TID IVP Last administered on 11/17/16 22: 24; Start 11/10/16 at 14:00 Methylprednisolone Sodium Succinate (SOLU-Medrol 40MG VIAL) 40 mg Q12HR IV Last administered on 11/11/16 20:59; Start 11/10/16 at 11:00; Stop 11/12/16 at 08:09; Status DC Furosemide (Lasix) 60 mg 1X ONCE IVP Last administered on 11/11/16 10:26; Start 11/11/16 at 09:30; Stop 11/11/16 at 09:31; Status DC Prednisone (Prednisone) 40 mg DAILY PO Last administered on 11/17/16 10:08; Start 11/12/16 at 09:00 Sevoflurane (Ultane) 60 ml STK-MED ONCE IH ; Start 11/13/16 at 12:24; Stop 11/13 at 12:25; Status DC Fentanyl Citrate (Fentanyl 2ml Vial) 100 mcg STK-MED ONCE .ROUTE ; Start at 12:24; Stop 11/13/16 at 12:25; Status DC Midazolam HCl (Versed) 2 mg STK-MED ONCE .ROUTE ; Start 11/13/16 at 12:24; Stop 11/13/16 at 12:25; Status DC Vecuronium [place] (Norcuron Bolus) 10 mg STK-MED ONCE IV ; Start 11/13/16 at 12 :24; Stop 11/13/16 at 12:25; Status DC Fentanyl Citrate (Fentanyl 2ml Vial) 100 mcg STK-MED ONCE .ROUTE ; Start at 13:33; Stop 11/13/16 at 13:34; Status DC Potassium Chloride 50 ml @ 50 mls/hr Q1H IV Last administered on 11/13/16 20: 42; Start 11/13/16 at 16:15; Stop 11/13/16 at 18:14; Status DC Propofol 100 ml @ 0 mls/hr CONT PRN IV SEE I/O RECORD; Start 11/15/16 at 17:00; Status UNV Nystatin 5 ml [id number] Last administered on 11/17/16t 22:23; Start 11/17/16 at 09:30 Active Scripts Active Reported Trazodone Hcl 100 Mg Tablet 100 Mg PO HS Polyethylene Glycol 3350 255 Gm Powder 17 Gm PO DAILY Olanzapine 20 Mg Tablet 2 Tab PO QHS Montelukast Sodium Tablet (Montelukast Sodium) 10 Mg Tablet 10 Mg PO HS Meloxicam 15 Mg Tablet 1 Tab PO DAILY Losartan Potassium 50 Mg Tablet 50 Mg PO DAILY Lorazepam 1 Mg Tablet 1 Mg PO HS Lasix (Furosemide) 40 Mg Tablet 40 Mg PO PRN DAILY Hydrochlorothiazide Tablet (Hydrochlorothiazide) 25 Mg Tablet 25 Mg PO DAILY Folic Acid 1 Mg Tablet 1 Mg PO DAILY Fluoxetine Hcl 40 Mg Capsule 40 Mg PO DAILY Famotidine 20 Mg Tablet 20 Mg PO BID Duoneb 0.5-3(2.5) Mg/3 Ml (Albuterol/Ipratropium) 3 Ml Ampul.neb 3 Ml NEB QID Docusate Sodium 100 Mg Capsule 1 Cap PO BID Clonidine Hcl 0.1 Mg Tablet 0.1 Mg PO QID Cetirizine Hcl 10 Mg Tablet 1 Tab PO DAILY Vitals/I & O Vital Sign - Last 24 Hours 11/17/16 11/17/16 11/17/16 11/17/16 11:00 11:12 12:00 12:00 Temp 99.5 99.5 Pulse 82 92 Resp 20 20 B/P (MAP) 168/79 (108) 163/89 (113) Pulse Ox 94 94 94 O2 Delivery Ventilator Ventilator Ventilator Mechanical Ventilator 11/17/16 11/17/16 11/17/16 11/17/16 12:46 13:00 14:00 14:25 Pulse 95 86 Resp 20 20 26 B/P (MAP) 205/110 (141) 195/103 (133) Pulse Ox 96 97 93 93 O2 Delivery Ventilator Ventilator Ventilator Ventilator 11/17/16 11/17/16 11/17/16 11/17/16 14:25 15:00 15:32 16:00 Pulse 84 122 Resp 20 B/P (MAP) 195/109 203/119 (147) Pulse Ox 96 96 O2 Delivery Ventilator Ventilator Mechanical Ventilator 11/17/16 11/17/16 11/17/16 11/17/16 16:00 17:00 17:21 18:00 Temp 99.1 99.1 Pulse 101 97 94 Resp 20 20 20 B/P (MAP) 152/80 (104) 163/82 (109) 173/88 (116) Pulse Ox 95 95 95 95 O2 Delivery Ventilator Ventilator Ventilator Ventilator 11/17/16 11/17/16 11/17/16 11/17/16 19:00 20:00 20:00 20:09 Temp 99.4 99.4 Pulse 89 90 Resp 22 20 B/P (MAP) 165/85 (111) 188/94 (125) Pulse Ox 94 95 96 O2 Delivery Ventilator Mechanical Ventilator Ventilator Ventilator 11/17/16 11/17/16 11/17/16 11/17/16 21:00 21:25 22:00 23:00 Pulse 100 86 99 Resp 20 20 20 B/P (MAP) 178/86 (116) 162/79 (106) 179/87 (117) Pulse Ox 97 96 94 96 O2 Delivery Ventilator Ventilator Ventilator Ventilator 11/17/16 11/17/16 11/18/16 11/18/16 23:48 23:59 00:00 01:00 Temp 99.3 99.3 Pulse 92 95 Resp 24 24 B/P (MAP) 172/87 (115) 174/85 (114) Pulse Ox 93 96 97 O2 Delivery Ventilator Mechanical Ventilator Ventilator Ventilator 11/18/16 11/18/16 11/18/16 11/18/16 01:12 02:00 03:00 03:25 Pulse 95 95 Resp 24 24 B/P (MAP) 144/77 (99) 138/85 (102) Pulse Ox 94 97 97 94 O2 Delivery Ventilator Ventilator Ventilator Ventilator 11/18/16 11/18/16 11/18/16 11/18/16 04:00 04:00 05:00 05:20 Temp 99.4 99.4 Pulse 95 95 Resp 24 24 B/P (MAP) 183/87 (119) 179/90 (119) Pulse Ox 97 97 94 O2 Delivery Ventilator Mechanical Ventilator Ventilator Ventilator 11/18/16 11/18/16 11/18/16 11/18/16 05:51 06:00 07:14 09:00 Pulse 95 95 Resp 24 B/P (MAP) 195/96 195/98 (130) Pulse Ox 97 91 94 O2 Delivery Ventilator Ventilator Ventilator Intake and Output 11/17/16 11/17/16 11/18/16 15:00 23:00 07:00 Intake Total 0 ml 1071 ml 1273 ml Output Total 1760 ml 1720 ml 1075 ml Balance -1760 ml -649 ml 198 ml ERYN RAMSEY MD Nov 18, 2016 10:31
[2016-11-18] MEDS: diphenhydrAMINE 50 MG/ML VIAL IVP SCH ×3 (10:59→21:42)
[2016-11-18] MEDS: predniSONE 20 MG TABLET PO SCH (10:59)
[2016-11-18] MEDS: CETIRIZINE HCL 10 MG TABLET. PO SCH (11:00)
--- NOTE | 2016-11-18 20:12 | RAD ---
Indication assess Dobbhoff feeding tube placement. A single view targeted to the lower chest and upper abdomen was obtained. Patchy pulmonary infiltrates are seen. A right-sided vascular line is noted. A Dobbhoff feeding tube has its tip in the body of the stomach. IMPRESSION: Dobbhoff feeding tube with its tip in the body of the stomach Electronically signed by: Tony Lim MD (11/18/2016 8:09 PM) [id number]
[2016-11-18] MEDS: FAMOTIDINE 20 MG/2 ML VIAL IVP SCH (21:42)
[2016-11-19] VITALS (25 sets, daily range): BP systolic 118–169; BP diastolic 60–91
[2016-11-19] MEDS: HEPARIN PF for SUB-Q USE 5,000 UNIT/0.5 ML VIAL. SQ SCH ×3 (06:24→21:27)
[2016-11-19] MEDS: IPRATRPIUM/ALBUTEROL 0.5/2.5MG 3 ML NEBU. NEB SCH ×4 (07:08→20:15)
--- NOTE | 2016-11-19 07:17 | PDOC ---
PULMONARY PROGRESS NOTES Subjective AWAKE ON AC MODE NAD Vitals Vital Signs Date Time Temp Pulse Resp B/P (MAP) Pulse Ox O2 Delivery O2 Flow Rate FiO2 11/19/16 07:00 93 Ventilator 11/19/16 06:00 76 24 142/79 (100) 11/19/16 04:00 99.0 99.0 ROS: No Nausea, No Chest Pain, No Abdominal Pain, No Increase Cough Lungs: Clear Cardiovascular: S1, S2 Abdomen: Soft, Non-tender Neuro Exam: Alert, Oriented Extremities: Other (edema) Skin: Warm Labs Laboratory Tests Test 11/17/16 12:45 11/17/16 14:00 White Blood Count 15.2 x10^3/uL (4.0-11.0) Red Blood Count 3.22 x10^6/uL (3.50-5.40) Hemoglobin 9.3 g/dL (12.0-15.5) Hematocrit 29.9 % (36.0-47.0) Mean Corpuscular Volume 93 fL (79-100) Mean Corpuscular Hemoglobin 29 pg (25-35) Mean Corpuscular Hemoglobin Concent 31 g/dL (31-37) Red Cell Distribution Width 17.7 % (11.5-14.5) Platelet Count 397 x10^3/uL (140-400) Neutrophils (%) (Auto) 80 % (31-73) Lymphocytes (%) (Auto) 14 % (24-48) Monocytes (%) (Auto) 4 % (0-9) Eosinophils (%) (Auto) 1 % (0-3) Basophils (%) (Auto) 1 % (0-3) Neutrophils # (Auto) 12.2 x10^3uL (1.8-7.7) Lymphocytes # (Auto) 2.2 x10^3/uL (1.0-4.8) Monocytes # (Auto) 0.6 x10^3/uL (0.0-1.1) Eosinophils # (Auto) 0.2 x10^3/uL (0.0-0.7) Basophils # (Auto) 0.1 x10^3/uL (0.0-0.2) Sodium Level 140 mmol/L (136-145) Potassium Level 4.0 mmol/L (3.5-5.1) Chloride Level 103 mmol/L (98-107) Carbon Dioxide Level 29 mmol/L (21-32) Anion Gap 8 (6-14) Blood Urea Nitrogen 15 mg/dL (7-20) Creatinine 0.8 mg/dL (0.6-1.0) Estimated GFR (Cockcroft-Gault) 87.7 BUN/Creatinine Ratio 19 (6-20) Glucose Level 167 mg/dL (70-99) Calcium Level 9.4 mg/dL (8.5-10.1) Total Bilirubin 0.3 mg/dL (0.2-1.0) Aspartate Amino Transf (AST/SGOT) 57 U/L (15-37) Alanine Aminotransferase (ALT/SGPT) 181 U/L (14-59) Alkaline Phosphatase 145 U/L (46-116) Total Protein 7.9 g/dL (6.4-8.2) Albumin 3.1 g/dL (3.4-5.0) Albumin/Globulin Ratio 0.6 (1.0-1.7) Medications Active Scripts Medications Dose Route/Sig Max Daily Dose Days Date Category Trazodone Hcl 100 Mg Tablet 100 Mg PO HS 10/31/16 Reported Polyethylene Glycol 3350 255 Gm Powder 17 Gm PO DAILY 10/31/16 Reported Olanzapine 20 Mg Tablet 2 Tab PO QHS 10/31/16 Reported Montelukast Sodium Tablet (Montelukast Sodium) 10 Mg Tablet 10 Mg PO HS 10/31/16 Reported Meloxicam 15 Mg Tablet 1 Tab PO DAILY 10/31/16 Reported Losartan Potassium 50 Mg Tablet 50 Mg PO DAILY 10/31/16 Reported Lorazepam 1 Mg Tablet 1 Mg PO HS 10/31/16 Reported Lasix (Furosemide) 40 Mg Tablet 40 Mg PO PRN DAILY 10/31/16 Reported Hydrochlorothiazide Tablet (Hydrochlorothiazide) 25 Mg Tablet 25 Mg PO DAILY 10/31/16 Reported Folic Acid 1 Mg Tablet 1 Mg PO DAILY 10/31/16 Reported Fluoxetine Hcl 40 Mg Capsule 40 Mg PO DAILY 10/31/16 Reported Famotidine 20 Mg Tablet 20 Mg PO BID 10/31/16 Reported Duoneb 0.5-3(2.5) Mg/3 Ml (Albuterol/Ipratropium) 3 Ml Ampul.neb 3 Ml NEB QID 10/31/16 Reported Docusate Sodium 100 Mg Capsule 1 Cap PO BID 10/31/16 Reported Clonidine Hcl 0.1 Mg Tablet 0.1 Mg PO QID 10/31/16 Reported Cetirizine Hcl 10 Mg Tablet 1 Tab PO DAILY 10/31/16 Reported Impression . A/C HYPERCAPNIA HYPOXEMIC RESP FAILURE MULTIFACTORIAL FAILED BIPAP INTUBATED S/P TRACH 11/13 ACUTE HEART FAILURE SUSPECT DIASTOLIC TALHA/OHS ACUTE RENAL FAILURE MORBID OBESITY FEVER POSSIBLE PNEUMONIA GRAM NEG/GRAM POS IMPROVED UTI KLEB s/p RHABDO LARYNGEAL EDEMA IMPROVED ETIOLOGY UNCLEAR Plan . WEAN TOLERATED WITH PS, DIFFICULT WEAN MAY NEED LTAC FOLLOW NEPHRO INPUT ANTIBX PER ID DVT AND GI PROPH NUTRITION PER TF TAPER PRED DOWN TO 20MG START 11/19 CLIVE MEDRANO MD Nov 19, 2016 07:17
[2016-11-19 08:12] LABS: BASO # 0.2 x10^3/uL (0.0-0.2); BASO % 1 % (0-3); EOS % 1 % (0-3); LYMPH # 4.3 x10^3/uL (1.0-4.8); LYMPH % 28 % (24-48); MEAN CORPUSCULAR HEMOGLOBIN 29 pg (25-35); MEAN CORPUSCULAR HGB CONC 31 g/dL (31-37); MEAN CORPUSCULAR VOLUME 93 fL (79-100); MONO % 12 % (0-9); NEUT % 57 % (31-73); PLATELET COUNT 318 x10^3/uL (140-400); RED CELL DISTRIBUTION WIDTH 19.1 % (11.5-14.5); WHITE BLOOD COUNT 15.2 x10^3/uL (4.0-11.0)
[2016-11-19 08:27] LABS: CALCIUM 9.3 mg/dL (8.5-10.1); CREATININE 0.7 mg/dL (0.6-1.0); GFR 102.3; POTASSIUM 4.4 mmol/L (3.5-5.1)
--- NOTE | 2016-11-19 09:06 | PDOC ---
PROGRESS NOTES Chief Complaint Chief Complaint Acute hypoxic and hypercapnic resp failure with HAP, on vent with trach Fever and leukocytosis: urinary tract infection, POA, klebsiella Healthcare associated pneumonia possible gram-negative rods COPD morbid obesity, BMI 53 chronic diastolic Congestive heart failure , LV ejection fraction 65% Ckd with jerrod, vasomotor HX of schizophrenia, was in psych facility before admit here HTN, chronic tobaccoism hypophosphatemia moderate malnutrition in morbid obesity diffuse edema, chf and malnutrition History of Present Illness History of Present Illness tube feeds, by dobhoff no event trying to wean vent, doing well on pressure support /, max vol. less than yesterday try to wean awake, following commands, doing better at communicating planning LTAC transfer, failed wean from vent yesterday, try again today Vitals Vitals Vital Signs Date Time Temp Pulse Resp B/P (MAP) Pulse Ox O2 Delivery O2 Flow Rate FiO2 11/19/16 07:00 93 Ventilator 11/19/16 07:00 83 21 129/60 (83) 11/19/16 04:00 99.0 99.0 Physical Exam Physical Exam trach, dressings: intact, no bleeding, no leak following commands Lungs: good vol, less wheeze Heart: S1 S2 General: Cooperative, No acute distress, Other (sedated) Heart: Regular rate, Normal S1, Normal S2 Lungs: Clear Abdomen: Soft, No tenderness Extremities: Other (edema) Skin: No rashes, No significant lesion Labs LABS Laboratory Tests Test 11/19/16 07:45 White Blood Count 15.2 x10^3/uL (4.0-11.0) Red Blood Count 3.10 x10^6/uL (3.50-5.40) Hemoglobin 9.0 g/dL (12.0-15.5) Hematocrit 29.0 % (36.0-47.0) Mean Corpuscular Volume 93 fL (79-100) Mean Corpuscular Hemoglobin 29 pg (25-35) Mean Corpuscular Hemoglobin Concent 31 g/dL (31-37) Red Cell Distribution Width 19.1 % (11.5-14.5) Platelet Count 318 x10^3/uL (140-400) Neutrophils (%) (Auto) 57 % (31-73) Lymphocytes (%) (Auto) 28 % (24-48) Monocytes (%) (Auto) 12 % (0-9) Eosinophils (%) (Auto) 1 % (0-3) Basophils (%) (Auto) 1 % (0-3) Neutrophils # (Auto) 8.7 x10^3uL (1.8-7.7) Lymphocytes # (Auto) 4.3 x10^3/uL (1.0-4.8) Monocytes # (Auto) 1.8 x10^3/uL (0.0-1.1) Eosinophils # (Auto) 0.2 x10^3/uL (0.0-0.7) Basophils # (Auto) 0.2 x10^3/uL (0.0-0.2) Sodium Level 139 mmol/L (136-145) Potassium Level 4.4 mmol/L (3.5-5.1) Chloride Level 101 mmol/L (98-107) Carbon Dioxide Level 30 mmol/L (21-32) Anion Gap 8 (6-14) Blood Urea Nitrogen 14 mg/dL (7-20) Creatinine 0.7 mg/dL (0.6-1.0) Estimated GFR (Cockcroft-Gault) 102.3 Glucose Level 111 mg/dL (70-99) Calcium Level 9.3 mg/dL (8.5-10.1) Review of Systems Review of Systems no n.v.d Assessment and Plan Assessmemt and Plan she is able to pull excellent volumes with coaching, PS may again try to be weaned, on 27/08, 50%, cont current, wean as able appreciate subspecialty support Problems: Comment Review of Relevant I have reviewed the following items asif (where applicable) has been applied. Labs Laboratory Tests Test 11/17/16 12:45 11/17/16 14:00 11/19/16 07:45 White Blood Count 15.2 x10^3/uL (4.0-11.0) 15.2 x10^3/uL (4.0-11.0) Red Blood Count 3.22 x10^6/uL (3.50-5.40) 3.10 x10^6/uL (3.50-5.40) Hemoglobin 9.3 g/dL (12.0-15.5) 9.0 g/dL (12.0-15.5) Hematocrit 29.9 % (36.0-47.0) 29.0 % (36.0-47.0) Mean Corpuscular Volume 93 fL (79-100) 93 fL (79-100) Mean Corpuscular Hemoglobin 29 pg (25-35) 29 pg (25-35) Mean Corpuscular Hemoglobin Concent 31 g/dL (31-37) 31 g/dL (31-37) Red Cell Distribution Width 17.7 % (11.5-14.5) 19.1 % (11.5-14.5) Platelet Count 397 x10^3/uL (140-400) 318 x10^3/uL (140-400) Neutrophils (%) (Auto) 80 % (31-73) 57 % (31-73) Lymphocytes (%) (Auto) 14 % (24-48) 28 % (24-48) Monocytes (%) (Auto) 4 % (0-9) 12 % (0-9) Eosinophils (%) (Auto) 1 % (0-3) 1 % (0-3) Basophils (%) (Auto) 1 % (0-3) 1 % (0-3) Neutrophils # (Auto) 12.2 x10^3uL (1.8-7.7) 8.7 x10^3uL (1.8-7.7) Lymphocytes # (Auto) 2.2 x10^3/uL (1.0-4.8) 4.3 x10^3/uL (1.0-4.8) Monocytes # (Auto) 0.6 x10^3/uL (0.0-1.1) 1.8 x10^3/uL (0.0-1.1) Eosinophils # (Auto) 0.2 x10^3/uL (0.0-0.7) 0.2 x10^3/uL (0.0-0.7) Basophils # (Auto) 0.1 x10^3/uL (0.0-0.2) 0.2 x10^3/uL (0.0-0.2) Sodium Level 140 mmol/L (136-145) 139 mmol/L (136-145) Potassium Level 4.0 mmol/L (3.5-5.1) 4.4 mmol/L (3.5-5.1) Chloride Level 103 mmol/L (98-107) 101 mmol/L (98-107) Carbon Dioxide Level 29 mmol/L (21-32) 30 mmol/L (21-32) Anion Gap 8 (6-14) 8 (6-14) Blood Urea Nitrogen 15 mg/dL (7-20) 14 mg/dL (7-20) Creatinine 0.8 mg/dL (0.6-1.0) 0.7 mg/dL (0.6-1.0) Estimated GFR (Cockcroft-Gault) 87.7 102.3 BUN/Creatinine Ratio 19 (6-20) Glucose Level 167 mg/dL (70-99) 111 mg/dL (70-99) Calcium Level 9.4 mg/dL (8.5-10.1) 9.3 mg/dL (8.5-10.1) Total Bilirubin 0.3 mg/dL (0.2-1.0) Aspartate Amino Transf (AST/SGOT) 57 U/L (15-37) Alanine Aminotransferase (ALT/SGPT) 181 U/L (14-59) Alkaline Phosphatase 145 U/L (46-116) Total Protein 7.9 g/dL (6.4-8.2) Albumin 3.1 g/dL (3.4-5.0) Albumin/Globulin Ratio 0.6 (1.0-1.7) Laboratory Tests Test 11/19/16 07:45 White Blood Count 15.2 x10^3/uL (4.0-11.0) Red Blood Count 3.10 x10^6/uL (3.50-5.40) Hemoglobin 9.0 g/dL (12.0-15.5) Hematocrit 29.0 % (36.0-47.0) Mean Corpuscular Volume 93 fL (79-100) Mean Corpuscular Hemoglobin 29 pg (25-35) Mean Corpuscular Hemoglobin Concent 31 g/dL (31-37) Red Cell Distribution Width 19.1 % (11.5-14.5) Platelet Count 318 x10^3/uL (140-400) Neutrophils (%) (Auto) 57 % (31-73) Lymphocytes (%) (Auto) 28 % (24-48) Monocytes (%) (Auto) 12 % (0-9) Eosinophils (%) (Auto) 1 % (0-3) Basophils (%) (Auto) 1 % (0-3) Neutrophils # (Auto) 8.7 x10^3uL (1.8-7.7) Lymphocytes # (Auto) 4.3 x10^3/uL (1.0-4.8) Monocytes # (Auto) 1.8 x10^3/uL (0.0-1.1) Eosinophils # (Auto) 0.2 x10^3/uL (0.0-0.7) Basophils # (Auto) 0.2 x10^3/uL (0.0-0.2) Sodium Level 139 mmol/L (136-145) Potassium Level 4.4 mmol/L (3.5-5.1) Chloride Level 101 mmol/L (98-107) Carbon Dioxide Level 30 mmol/L (21-32) Anion Gap 8 (6-14) Blood Urea Nitrogen 14 mg/dL (7-20) Creatinine 0.7 mg/dL (0.6-1.0) Estimated GFR (Cockcroft-Gault) 102.3 Glucose Level 111 mg/dL (70-99) Calcium Level 9.3 mg/dL (8.5-10.1) Microbiology 11/02/16 Blood Culture - Final, Complete NO GROWTH AFTER 5 DAYS 11/01/16 Sputum Culture - Final, Complete 11/01/16 Sputum Result 1 - Final, Complete 10/31/16 Urine Culture - Final, Complete 10/31/16 Urine Culture Result 1 (ISAIAS) - Final, Complete 10/31/16 Antimicrobic Susceptibility - Final, Complete Medications Current Medications Methylprednisolone Sodium Succinate (SOLU-Medrol 125MG VIAL) 125 mg 1X ONCE IV Last administered on 10/31/16 11:18; Start 10/31/16 at 11:00; Stop 10/31/16 at 11:01; Status DC Albuterol/ Ipratropium (Duoneb) 3 ml 1X ONCE NEB Last administered on 11:00; Start 10/31/16 at 11:00; Stop 10/31/16 at 11:01; Status DC Furosemide (Lasix) 40 mg 1X ONCE IVP Last administered on 10/31/16 11:17; Start 10/31/16 at 11:15; Stop 10/31/16 at 11:16; Status DC Vancomycin HCl (Vanco Per Pharmacy) 1 each PRN DAILY PRN MC SEE COMMENTS Last administered on 11/06/16 10:19; Start 10/31/16 at 11:30; Stop 11/06/16 at 14:40 ; Status DC Piperacillin Sod/ Tazobactam Sod (Zosyn Per Pharmacy) 1 each PRN DAILY PRN MC SEE COMMENTS; Start 10/31/16 at 11:30; Stop 11/02/16 at 08:44; Status DC Levofloxacin/ Dextrose (Levaquin Per Pharmacy) 1 each PRN DAILY PRN MC SEE COMMENTS; Start 10/31/16 at 11:30; Stop 10/31/16 at 12:57; Status DC Vancomycin HCl 2 gm/Sodium Chloride 500 ml @ 250 mls/hr 1X ONCE IV Last administered on 10/31/16 14:30; Start 10/31/16 at 11:30; Stop 10/31/16 at 13:29 ; Status DC Levofloxacin/ Dextrose 150 ml @ 100 mls/hr ONCE ONCE IV Last administered on 10/31/16 12:45; Start 10/31/16 at 11:30; Stop 10/31/16 at 12:59; Status DC Piperacillin Sod/ Tazobactam Sod 3.375 gm/Sodium Chloride 50 ml @ 100 mls/hr ONCE ONCE IV Last administered on 10/31/16 11:38; Start 10/31/16 at 11:45; Stop 10/31/16 at 12:14; Status DC Levofloxacin/ Dextrose 150 ml @ 100 mls/hr Q48H IV Last administered on 10:54; Start 11/02/16 at 10:00; Stop 11/05/16 at 09:18; Status DC Piperacillin Sod/ Tazobactam Sod 3.375 gm/Sodium Chloride 50 ml @ 100 mls/hr Q6HRS IV Last administered on 11/02/16 05:44; Start 10/31/16 at 18:00; Stop at 08:47; Status DC Acetaminophen (Tylenol) 650 mg PRN Q6HRS PRN PO FEVER Last administered on 11/01 20:26; Start 10/31/16 at 15:15; Stop 11/02/16 at 07:45; Status DC Ondansetron HCl (Zofran) 4 mg PRN Q6HRS PRN IV NAUSEA/VOMITING Last administered on 11/18/16 11:00; Start 10/31/16 at 15:15 Morphine Sulfate 2 mg PRN Q2HR PRN IV PAIN Last administered on 11/17/16 14:25 ; Start 10/31/16 at 15:15 Tramadol HCl (Ultram) 50 mg PRN Q6HRS PRN PO PAIN; Start 10/31/16 at 15:15 Hydralazine HCl (Apresoline) 10 mg PRN Q4HRS PRN IVP ELEVATED BP, SEE COMMENTS Last administered on 11/18/16 05:51; Start 10/31/16 at 15:15 Docusate Sodium (Colace) 100 mg PRN DAILY PRN PO CONSTIPATION Last administered on 11/05/16 12:04; Start 10/31/16 at 15:15 Albuterol/ Ipratropium (Duoneb) 3 ml RTQID NEB Last administered on 11/19/16 07 :08; Start 10/31/16 at 16:00 Albuterol Sulfate (Ventolin Neb Soln) 2.5 mg PRN Q4HRS PRN NEB SHORTNESS OF BREATH; Start 10/31/16 at 15:15 Heparin Sodium (Porcine) (Heparin Sq) 5,000 unit Q8HRS SQ Last administered on 11/19/16 06:24; Start 10/31/16 at 22:00 Famotidine (Pepcid) 20 mg QHS IVP Last administered on 11/18/16 21:42; Start at 21:00 Vancomycin HCl 2 gm/Sodium Chloride 500 ml @ 250 mls/hr Q24H IV Last administered on 11/02/16 14:14; Start 11/01/16 at 14:00; Stop 11/02/16 at 14:24 ; Status DC Vancomycin HCl 1 each 1X ONCE MC Last administered on 11/02/16 13:30; Start 11/02/16 at 13:30; Stop 11/02/16 at 13:31; Status DC Sodium Chloride 1,000 ml @ 80 mls/hr [id number] IV Last administered on 08:27; Start 10/31/16 at 16:15; Stop 11/05/16 at 08:31; Status DC Sodium Chloride 1,000 ml @ 1,000 mls/hr 1X ONCE IV Last administered on 18:04; Start 10/31/16 at 14:00; Stop 10/31/16 at 17:23; Status DC Sodium Chloride 500 ml @ 500 mls/hr 1X ONCE IV Last administered on 17:30; Start 10/31/16 at 17:30; Stop 10/31/16 at 18:29; Status DC Fentanyl Citrate 30 ml @ 0 mls/hr CONT PRN IV PROTOCOL Last administered on 11/15 00:05; Start 10/31/16 at 18:30 Propofol 100 ml @ 0 mls/hr CONT PRN IV PER PROTOCOL Last administered on 19:00; Start 10/31/16 at 18:30 Chlorhexidine Gluconate (Peridex) 15 ml BID MM Last administered on 11/14/16 09 :32; Start 10/31/16 at 21:00; Stop 11/14/16 at 20:23; Status DC Artificial Tears (Artificial Tears) 1 drop PRN Q1HR PRN OU DRY EYE; Start 10/31 at 18:30 Midazolam HCl 100 ml @ 0 mls/hr CONT PRN IV PER PROTOCOL Last administered on 02:29; Start 10/31/16 at 18:30 Succinylcholine Chloride (Anectine) 200 mg STK-MED ONCE .ROUTE ; Start 10/31/16 at 18:43; Stop 10/31/16 at 18:44; Status DC Midazolam HCl (Versed) 5 mg STK-MED ONCE .ROUTE ; Start 10/31/16 at 18:45; Stop 10/31/16 at 18:46; Status DC Midazolam HCl (Versed) 5 mg 1X ONCE IV Last administered on 10/31/16 19:30; Start 10/31/16 at 19:30; Stop 10/31/16 at 19:31; Status DC Succinylcholine Chloride (Anectine) 200 mg STK-MED ONCE .ROUTE ; Start 10/31/16 at 18:45; Stop 11/01/16 at 08:13; Status DC Furosemide (Lasix) 20 mg 1X ONCE IVP Last administered on 11/01/16 13:48; Start 11/01/16 at 13:30; Stop 11/01/16 at 13:31; Status DC Sodium Chloride 500 ml @ 500 mls/hr 1X ONCE IV Last administered on 23:09; Start 11/01/16 at 23:15; Stop 11/02/16 at 00:14; Status DC Acetaminophen (Tylenol) 650 mg PRN Q6HRS PRN PEG MILD PAIN / TEMP Last administered on 11/05/16 16:39; Start 11/02/16 at 07:45 Piperacillin Sod/ Tazobactam Sod 4.5 gm/Sodium Chloride 100 ml @ 200 mls/hr Q6HRS IV Last administered on 11/16/16 05:58; Start 11/02/16 at 12:00; Stop 11/16/16 at 07:25; Status DC Sodium Chloride 500 ml @ 500 mls/hr 1X ONCE IV Last administered on 14:10; Start 11/02/16 at 13:00; Stop 11/02/16 at 13:59; Status DC Sodium Chloride 1,000 ml @ 75 mls/hr [id number] IV ; Start 11/02/16 at 13:00; Stop 11/02/16 at 13:25; Status DC Vancomycin HCl 1.75 gm/Sodium Chloride 500 ml @ 250 mls/hr Q18H IV Last administered on 11/06/16 09:13; Start 11/03/16 at 08:00; Stop 11/06/16 at 14:39 ; Status DC Vancomycin HCl 1 each 1X ONCE MC Last administered on 11/04/16 19:30; Start 11/04/16 at 19:30; Stop 11/04/16 at 19:31; Status DC Metoclopramide HCl (Reglan) 10 mg 1X ONCE IV Last administered on 11/03/16 16 :35; Start 11/03/16 at 15:45; Stop 11/03/16 at 15:46; Status DC Furosemide (Lasix) 20 mg 1X ONCE IVP Last administered on 11/04/16 10:54; Start 11/04/16 at 10:30; Stop 11/04/16 at 10:31; Status DC Metoclopramide HCl (Reglan) 10 mg 1X ONCE IV Last administered on 11/04/16 17 :15; Start 11/04/16 at 17:15; Stop 11/04/16 at 17:16; Status DC Magnesium Sulfate/ Dextrose 50 ml @ 25 mls/hr PRN DAILY PRN IV for Mag < 1.7 on am labs; Start 11/05/16 at 08:15 Hydrochlorothiazide (Hydrodiuril) 25 mg DAILY PO Last administered on 12:04; Start 11/05/16 at 09:00; Stop 11/06/16 at 11:08; Status DC Levofloxacin/ Dextrose 150 ml @ 100 mls/hr Q24H IV Last administered on 10:00; Start 11/05/16 at 10:00; Stop 11/06/16 at 14:39; Status DC Sodium Chloride 1,000 ml @ 75 mls/hr [id number] IV Last administered on 04:54; Start 11/05/16 at 15:45; Stop 11/06/16 at 09:26; Status DC Sodium Chloride 1,000 ml @ 75 mls/hr [id number] IV Last administered on 09:38; Start 11/06/16 at 09:30; Stop 11/07/16 at 07:37; Status DC Furosemide (Lasix) 20 mg 1X ONCE IVP Last administered on 11/06/16 09:38; Start 11/06/16 at 09:30; Stop 11/06/16 at 09:31; Status DC Potassium Phosphate 10 mmol/ Sodium Chloride 103.3333 ml @ 51.667 m... Q2H IV Last administered on 11/06/16 20:16; Start 11/06/16 at 13:30; Stop 11/06/16 at 17:29; Status DC Dextrose 1,000 ml @ 50 mls/hr Q20H IV Last administered on 11/07/16 09:40; Start 11/07/16 at 09:15; Stop 11/07/16 at 12:31; Status DC Dextrose 1,000 ml @ 100 mls/hr Q10H IV Last administered on 11/09/16 08:20; Start 11/07/16 at 19:30; Stop 11/09/16 at 14:39; Status DC Furosemide (Lasix) 20 mg 1X ONCE IVP Last administered on 11/08/16 09:17; Start 11/08/16 at 09:30; Stop 11/08/16 at 09:31; Status DC Saliva Substitute (Biotene Moisturizing Mouth) 2 spray PRN Q15MIN PRN PO DRY MOUTH Last administered on 11/18/16 11:01; Start 11/08/16 at 17:30 Cetirizine HCl (ZyrTEC) 10 mg DAILY PO Last administered on 11/18/16 11:00; Start 11/10/16 at 09:00 Diphenhydramine HCl (Benadryl) 25 mg PRN Q6HRS PRN IVP ITCHING Last administered on 11/10/16 05:50; Start 11/09/16 at 10:30; Stop 11/10/16 at 14:00 ; Status DC Linezolid 300 ml @ 300 mls/hr Q12HR IV Last administered on 11/13/16 21:42; Start 11/10/16 at 10:00; Stop 11/14/16 at 07:40; Status DC Diphenhydramine HCl (Benadryl) 50 mg TID IVP Last administered on 11/18/16 21: 42; Start 11/10/16 at 14:00 Methylprednisolone Sodium Succinate (SOLU-Medrol 40MG VIAL) 40 mg Q12HR IV Last administered on 11/11/16 20:59; Start 11/10/16 at 11:00; Stop 11/12/16 at 08:09; Status DC Furosemide (Lasix) 60 mg 1X ONCE IVP Last administered on 11/11/16 10:26; Start 11/11/16 at 09:30; Stop 11/11/16 at 09:31; Status DC Prednisone (Prednisone) 40 mg DAILY PO Last administered on 11/18/16 10:59; Start 11/12/16 at 09:00; Stop 11/19/16 at 07:17; Status DC Sevoflurane (Ultane) 60 ml STK-MED ONCE IH ; Start 11/13/16 at 12:24; Stop 11/13 at 12:25; Status DC Fentanyl Citrate (Fentanyl 2ml Vial) 100 mcg STK-MED ONCE .ROUTE ; Start at 12:24; Stop 11/13/16 at 12:25; Status DC Midazolam HCl (Versed) 2 mg STK-MED ONCE .ROUTE ; Start 11/13/16 at 12:24; Stop 11/13/16 at 12:25; Status DC Vecuronium [place] (Norcuron Bolus) 10 mg STK-MED ONCE IV ; Start 11/13/16 at 12 :24; Stop 11/13/16 at 12:25; Status DC Fentanyl Citrate (Fentanyl 2ml Vial) 100 mcg STK-MED ONCE .ROUTE ; Start at 13:33; Stop 11/13/16 at 13:34; Status DC Potassium Chloride 50 ml @ 50 mls/hr Q1H IV Last administered on 11/13/16 20: 42; Start 11/13/16 at 16:15; Stop 11/13/16 at 18:14; Status DC Propofol 100 ml @ 0 mls/hr CONT PRN IV SEE I/O RECORD; Start 11/15/16 at 17:00; Status UNV Nystatin 5 ml [id number] Last administered on 11/18/16 21:00; Start 11/17/16 at 09:30 Prednisone (Prednisone) 20 mg DAILY PO ; Start 11/19/16 at 09:00 Active Scripts Active Reported Trazodone Hcl 100 Mg Tablet 100 Mg PO HS Polyethylene Glycol 3350 255 Gm Powder 17 Gm PO DAILY Olanzapine 20 Mg Tablet 2 Tab PO QHS Montelukast Sodium Tablet (Montelukast Sodium) 10 Mg Tablet 10 Mg PO HS Meloxicam 15 Mg Tablet 1 Tab PO DAILY Losartan Potassium 50 Mg Tablet 50 Mg PO DAILY Lorazepam 1 Mg Tablet 1 Mg PO HS Lasix (Furosemide) 40 Mg Tablet 40 Mg PO PRN DAILY Hydrochlorothiazide Tablet (Hydrochlorothiazide) 25 Mg Tablet 25 Mg PO DAILY Folic Acid 1 Mg Tablet 1 Mg PO DAILY Fluoxetine Hcl 40 Mg Capsule 40 Mg PO DAILY Famotidine 20 Mg Tablet 20 Mg PO BID Duoneb 0.5-3(2.5) Mg/3 Ml (Albuterol/Ipratropium) 3 Ml Ampul.neb 3 Ml NEB QID Docusate Sodium 100 Mg Capsule 1 Cap PO BID Clonidine Hcl 0.1 Mg Tablet 0.1 Mg PO QID Cetirizine Hcl 10 Mg Tablet 1 Tab PO DAILY Vitals/I & O Vital Sign - Last 24 Hours 11/18/16 11/18/16 11/18/16 11/18/16 10:00 11:00 11:14 12:00 Temp 99.1 99.1 Pulse 100 100 108 Resp 26 24 B/P (MAP) 151/81 (104) 149/77 (101) 137/74 (95) Pulse Ox 93 92 93 94 O2 Delivery Ventilator Ventilator Ventilator Ventilator 11/18/16 11/18/16 11/18/16 11/18/16 12:00 12:27 13:00 14:00 Pulse 90 95 B/P (MAP) 124/72 (89) 142/76 (98) Pulse Ox 100 94 95 O2 Delivery Mechanical Ventilator Ventilator Ventilator Ventilator 11/18/16 11/18/16 11/18/16 11/18/16 15:00 15:17 16:00 16:00 Temp 98.7 98.7 Pulse 92 94 B/P (MAP) 148/74 (98) 153/77 (102) Pulse Ox 95 100 97 O2 Delivery Ventilator Ventilator Mechanical Ventilator Ventilator 11/18/16 11/18/16 11/18/16 11/18/16 17:00 18:00 19:00 19:31 Pulse 92 90 88 Resp 22 22 22 B/P (MAP) 136/86 (103) 140/84 (102) 132/64 (86) Pulse Ox 97 97 96 100 O2 Delivery Ventilator Ventilator Ventilator Ventilator 11/18/16 11/18/16 11/18/16 11/18/16 20:00 20:00 21:00 22:00 Temp 99.4 99.4 Pulse 92 86 92 Resp 28 33 35 B/P (MAP) 168/81 (110) 156/79 (104) 134/66 (88) Pulse Ox 93 96 96 O2 Delivery Mechanical Ventilator Ventilator Ventilator Ventilator 11/18/16 11/18/16 11/19/16 11/19/16 23:00 23:59 00:00 00:00 Temp 99.2 99.2 Pulse 87 92 Resp 33 24 B/P (MAP) 133/66 (88) 131/63 (85) Pulse Ox 91 96 96 O2 Delivery Ventilator Mechanical Ventilator Ventilator Ventilator 11/19/16 11/19/16 11/19/16 11/19/16 01:00 01:50 02:00 03:00 Pulse 106 86 95 Resp 25 20 20 B/P (MAP) 124/67 (86) 127/66 (86) 145/68 (93) Pulse Ox 96 97 97 95 O2 Delivery Ventilator Ventilator Ventilator Ventilator 11/19/16 11/19/16 11/19/16 11/19/16 03:45 04:00 04:00 05:00 Temp 99.0 99.0 Pulse 85 79 Resp 20 20 B/P (MAP) 118/64 (82) 146/70 (95) Pulse Ox 95 94 96 O2 Delivery Ventilator Mechanical Ventilator Ventilator Ventilator 11/19/16 11/19/16 11/19/16 11/19/16 05:00 06:00 07:00 07:00 Pulse 76 83 Resp 24 21 B/P (MAP) 142/79 (100) 129/60 (83) Pulse Ox 95 94 92 93 O2 Delivery Ventilator Ventilator Ventilator Ventilator Intake and Output 11/18/16 11/18/16 11/19/16 15:00 23:00 07:00 Intake Total 0 ml 482 ml 851 ml Output Total 1090 ml 660 ml 555 ml Balance -1090 ml -178 ml 296 ml ERYN RAMSEY MD Nov 19, 2016 09:06
[2016-11-19] MEDS: diphenhydrAMINE 50 MG/ML VIAL IVP SCH (09:24)
[2016-11-19] MEDS: predniSONE 20 MG TABLET PO SCH (09:24)
[2016-11-19] MEDS: NYSTATIN 100,000 UNITS/ML 5 ML ORAL.SUSP. SWSW SCH ×4 (09:24→21:26)
[2016-11-19] MEDS: CETIRIZINE HCL 10 MG TABLET. PO SCH (09:24)
[2016-11-19] MEDS: ACETAMINOPHEN 650 MG/20.3 ML SOLUTION. PEG PRN (14:17)
[2016-11-19] MEDS ORDERED: ALTEPLASE 2 MG VIAL INT CAT ONE (15:15)
[2016-11-19] MEDS: FAMOTIDINE 20 MG/2 ML VIAL IVP SCH (21:26)
[2016-11-20] VITALS (23 sets, daily range): BP systolic 127–168; BP diastolic 64–89
[2016-11-20] MEDS: HEPARIN PF for SUB-Q USE 5,000 UNIT/0.5 ML VIAL. SQ SCH ×3 (05:50→21:25)
[2016-11-20 06:21] LABS: CALCIUM 9.5 mg/dL (8.5-10.1); CREATININE 0.8 mg/dL (0.6-1.0); GFR 87.7; POTASSIUM 3.4 mmol/L (3.5-5.1)
[2016-11-20 06:41] LABS: BASO # 0.2 x10^3/uL (0.0-0.2); BASO % 1 % (0-3); EOS % 2 % (0-3); HEMATOCRIT 29.4 % (36.0-47.0); HEMOGLOBIN 9.4 g/dL (12.0-15.5); LYMPH # 4.2 x10^3/uL (1.0-4.8); LYMPH % 28 % (24-48); MEAN CORPUSCULAR HEMOGLOBIN 29 pg (25-35); MEAN CORPUSCULAR HGB CONC 32 g/dL (31-37); MEAN CORPUSCULAR VOLUME 91 fL (79-100); MONO % 12 % (0-9); NEUT % 57 % (31-73); PLATELET COUNT 358 x10^3/uL (140-400); RED BLOOD COUNT 3.22 x10^6/uL (3.50-5.40); RED CELL DISTRIBUTION WIDTH 18.1 % (11.5-14.5); WHITE BLOOD COUNT 15.2 x10^3/uL (4.0-11.0)
--- NOTE | 2016-11-20 07:40 | RAD ---
Indication difficulty breathing. Pneumonia. A single view of the chest was obtained. Comparison is made to an examination 11/12/2016. There is generalized cardiomegaly appearing similar to the previous exam. Some volume loss at the left lung base persists. Endotracheal tube seen previously has been replaced with a tracheostomy tube. There is a feeding tube with its tip in the body of the stomach. A right central catheter is noted. A focal infiltrate is not seen. The pulmonary vasculature is similar to the previous exam. IMPRESSION: No definite acute or focal process or significant change when compared to the previous exam.
[2016-11-20] MEDS: IPRATRPIUM/ALBUTEROL 0.5/2.5MG 3 ML NEBU. NEB SCH ×4 (07:51→19:50)
[2016-11-20] MEDS: NYSTATIN 100,000 UNITS/ML 5 ML ORAL.SUSP. SWSW SCH ×4 (09:00→21:20)
--- NOTE | 2016-11-20 10:16 | PDOC ---
PULMONARY PROGRESS NOTES Subjective AWAKE ON CPAP MODE ON 60%FIO2 Vitals Vital Signs Date Time Temp Pulse Resp B/P (MAP) Pulse Ox O2 Delivery O2 Flow Rate FiO2 11/20/16 07:50 Ventilator 11/20/16 07:45 95 11/20/16 06:00 80 20 150/79 (102) 11/20/16 04:00 98.2 98.2 11/19/16 16:00 3.0 ROS: No Nausea, No Chest Pain, No Abdominal Pain, No Increase Cough General: Alert, No acute distress Lungs: Clear Cardiovascular: S1, S2 Abdomen: Soft, Non-tender, Other (obese) Neuro Exam: Alert, Oriented Extremities: Other (edema) Skin: Warm Labs Laboratory Tests Test 11/19/16 07:45 11/20/16 05:45 White Blood Count 15.2 x10^3/uL (4.0-11.0) 15.2 x10^3/uL (4.0-11.0) Red Blood Count 3.10 x10^6/uL (3.50-5.40) 3.22 x10^6/uL (3.50-5.40) Hemoglobin 9.0 g/dL (12.0-15.5) 9.4 g/dL (12.0-15.5) Hematocrit 29.0 % (36.0-47.0) 29.4 % (36.0-47.0) Mean Corpuscular Volume 93 fL (79-100) 91 fL (79-100) Mean Corpuscular Hemoglobin 29 pg (25-35) 29 pg (25-35) Mean Corpuscular Hemoglobin Concent 31 g/dL (31-37) 32 g/dL (31-37) Red Cell Distribution Width 19.1 % (11.5-14.5) 18.1 % (11.5-14.5) Platelet Count 318 x10^3/uL (140-400) 358 x10^3/uL (140-400) Neutrophils (%) (Auto) 57 % (31-73) 57 % (31-73) Lymphocytes (%) (Auto) 28 % (24-48) 28 % (24-48) Monocytes (%) (Auto) 12 % (0-9) 12 % (0-9) Eosinophils (%) (Auto) 1 % (0-3) 2 % (0-3) Basophils (%) (Auto) 1 % (0-3) 1 % (0-3) Neutrophils # (Auto) 8.7 x10^3uL (1.8-7.7) 8.6 x10^3uL (1.8-7.7) Lymphocytes # (Auto) 4.3 x10^3/uL (1.0-4.8) 4.2 x10^3/uL (1.0-4.8) Monocytes # (Auto) 1.8 x10^3/uL (0.0-1.1) 1.8 x10^3/uL (0.0-1.1) Eosinophils # (Auto) 0.2 x10^3/uL (0.0-0.7) 0.3 x10^3/uL (0.0-0.7) Basophils # (Auto) 0.2 x10^3/uL (0.0-0.2) 0.2 x10^3/uL (0.0-0.2) Sodium Level 139 mmol/L (136-145) 139 mmol/L (136-145) Potassium Level 4.4 mmol/L (3.5-5.1) 3.4 mmol/L (3.5-5.1) Chloride Level 101 mmol/L (98-107) 101 mmol/L (98-107) Carbon Dioxide Level 30 mmol/L (21-32) 31 mmol/L (21-32) Anion Gap 8 (6-14) 7 (6-14) Blood Urea Nitrogen 14 mg/dL (7-20) 14 mg/dL (7-20) Creatinine 0.7 mg/dL (0.6-1.0) 0.8 mg/dL (0.6-1.0) Estimated GFR (Cockcroft-Gault) 102.3 87.7 Glucose Level 111 mg/dL (70-99) 126 mg/dL (70-99) Calcium Level 9.3 mg/dL (8.5-10.1) 9.5 mg/dL (8.5-10.1) Laboratory Tests Test 11/20/16 05:45 White Blood Count 15.2 x10^3/uL (4.0-11.0) Red Blood Count 3.22 x10^6/uL (3.50-5.40) Hemoglobin 9.4 g/dL (12.0-15.5) Hematocrit 29.4 % (36.0-47.0) Mean Corpuscular Volume 91 fL (79-100) Mean Corpuscular Hemoglobin 29 pg (25-35) Mean Corpuscular Hemoglobin Concent 32 g/dL (31-37) Red Cell Distribution Width 18.1 % (11.5-14.5) Platelet Count 358 x10^3/uL (140-400) Neutrophils (%) (Auto) 57 % (31-73) Lymphocytes (%) (Auto) 28 % (24-48) Monocytes (%) (Auto) 12 % (0-9) Eosinophils (%) (Auto) 2 % (0-3) Basophils (%) (Auto) 1 % (0-3) Neutrophils # (Auto) 8.6 x10^3uL (1.8-7.7) Lymphocytes # (Auto) 4.2 x10^3/uL (1.0-4.8) Monocytes # (Auto) 1.8 x10^3/uL (0.0-1.1) Eosinophils # (Auto) 0.3 x10^3/uL (0.0-0.7) Basophils # (Auto) 0.2 x10^3/uL (0.0-0.2) Sodium Level 139 mmol/L (136-145) Potassium Level 3.4 mmol/L (3.5-5.1) Chloride Level 101 mmol/L (98-107) Carbon Dioxide Level 31 mmol/L (21-32) Anion Gap 7 (6-14) Blood Urea Nitrogen 14 mg/dL (7-20) Creatinine 0.8 mg/dL (0.6-1.0) Estimated GFR (Cockcroft-Gault) 87.7 Glucose Level 126 mg/dL (70-99) Calcium Level 9.5 mg/dL (8.5-10.1) Medications Active Scripts Medications Dose Route/Sig Max Daily Dose Days Date Category Trazodone Hcl 100 Mg Tablet 100 Mg PO HS 10/31/16 Reported Polyethylene Glycol 3350 255 Gm Powder 17 Gm PO DAILY 10/31/16 Reported Olanzapine 20 Mg Tablet 2 Tab PO QHS 10/31/16 Reported Montelukast Sodium Tablet (Montelukast Sodium) 10 Mg Tablet 10 Mg PO HS 10/31/16 Reported Meloxicam 15 Mg Tablet 1 Tab PO DAILY 10/31/16 Reported Losartan Potassium 50 Mg Tablet 50 Mg PO DAILY 10/31/16 Reported Lorazepam 1 Mg Tablet 1 Mg PO HS 10/31/16 Reported Lasix (Furosemide) 40 Mg Tablet 40 Mg PO PRN DAILY 10/31/16 Reported Hydrochlorothiazide Tablet (Hydrochlorothiazide) 25 Mg Tablet 25 Mg PO DAILY 10/31/16 Reported Folic Acid 1 Mg Tablet 1 Mg PO DAILY 10/31/16 Reported Fluoxetine Hcl 40 Mg Capsule 40 Mg PO DAILY 10/31/16 Reported Famotidine 20 Mg Tablet 20 Mg PO BID 10/31/16 Reported Duoneb 0.5-3(2.5) Mg/3 Ml (Albuterol/Ipratropium) 3 Ml Ampul.neb 3 Ml NEB QID 10/31/16 Reported Docusate Sodium 100 Mg Capsule 1 Cap PO BID 10/31/16 Reported Clonidine Hcl 0.1 Mg Tablet 0.1 Mg PO QID 10/31/16 Reported Cetirizine Hcl 10 Mg Tablet 1 Tab PO DAILY 10/31/16 Reported Impression . A/C HYPERCAPNIA /HYPOXEMIC RESP FAILURE. MULTIFACTORIAL FAILED BIPAP INTUBATED S/P TRACH 11/13 ACUTE HEART FAILURE SUSPECT DIASTOLIC TALHA/OHS ACUTE RENAL FAILURE MORBID OBESITY FEVER POSSIBLE PNEUMONIA GRAM NEG/GRAM POS IMPROVED UTI KLEB s/p RHABDO LARYNGEAL EDEMA IMPROVED ETIOLOGY UNCLEAR ABN CXR Plan . WEAN TOLERATED WITH PS,WEAN FIO2 AND PEEP ONCE DOWN TO PS 10, WILL TRY TS WILL NEED LTAC FOLLOW NEPHRO INPUT ANTIBX PER ID DVT AND GI PROPH NUTRITION PER TF CXR UNCHANGED TAPER PRED DOWN TO 20MG D/W RN/RT CARLOS RODGERS MD Nov 20, 2016 10:16
[2016-11-20] MEDS: CETIRIZINE HCL 10 MG TABLET. PO SCH (14:19)
[2016-11-20] MEDS: predniSONE 20 MG TABLET PO SCH (14:19)
[2016-11-20] MEDS: ACETAMINOPHEN 650 MG/20.3 ML SOLUTION. PEG PRN (14:28)
[2016-11-20] MEDS ORDERED: POTASSIUM CHLORIDE 20 MEQ/15 ML ORAL LIQUID. PEG ONE (14:30)
[2016-11-20] MEDS: FAMOTIDINE 20 MG/2 ML VIAL IVP SCH (21:20)
[2016-11-21] VITALS (20 sets, daily range): BP systolic 119–176; BP diastolic 68–99
[2016-11-21] MEDS: HEPARIN PF for SUB-Q USE 5,000 UNIT/0.5 ML VIAL. SQ SCH ×3 (05:37→21:36)
[2016-11-21] MEDS: IPRATRPIUM/ALBUTEROL 0.5/2.5MG 3 ML NEBU. NEB SCH ×4 (07:30→19:27)
[2016-11-21] MEDS: NYSTATIN 100,000 UNITS/ML 5 ML ORAL.SUSP. SWSW SCH ×4 (09:00→21:38)
--- NOTE | 2016-11-21 11:06 | PDOC ---
PULMONARY PROGRESS NOTES Subjective AWAKE ON CPAP MODE ON 50%FIO2 Vitals Vital Signs Date Time Temp Pulse Resp B/P (MAP) Pulse Ox O2 Delivery O2 Flow Rate FiO2 11/21/16 07:31 94 Ventilator 11/21/16 06:00 82 36 135/70 (91) 11/21/16 04:00 99.4 99.4 11/20/16 20:00 3.0 ROS: No Nausea, No Chest Pain, No Abdominal Pain, No Increase Cough General: Alert, No acute distress Lungs: Clear Cardiovascular: S1, S2 Abdomen: Soft, Non-tender, Other (obese) Neuro Exam: Alert, Oriented Extremities: Other (edema) Skin: Warm Labs Laboratory Tests Test 11/20/16 05:45 White Blood Count 15.2 x10^3/uL (4.0-11.0) Red Blood Count 3.22 x10^6/uL (3.50-5.40) Hemoglobin 9.4 g/dL (12.0-15.5) Hematocrit 29.4 % (36.0-47.0) Mean Corpuscular Volume 91 fL (79-100) Mean Corpuscular Hemoglobin 29 pg (25-35) Mean Corpuscular Hemoglobin Concent 32 g/dL (31-37) Red Cell Distribution Width 18.1 % (11.5-14.5) Platelet Count 358 x10^3/uL (140-400) Neutrophils (%) (Auto) 57 % (31-73) Lymphocytes (%) (Auto) 28 % (24-48) Monocytes (%) (Auto) 12 % (0-9) Eosinophils (%) (Auto) 2 % (0-3) Basophils (%) (Auto) 1 % (0-3) Neutrophils # (Auto) 8.6 x10^3uL (1.8-7.7) Lymphocytes # (Auto) 4.2 x10^3/uL (1.0-4.8) Monocytes # (Auto) 1.8 x10^3/uL (0.0-1.1) Eosinophils # (Auto) 0.3 x10^3/uL (0.0-0.7) Basophils # (Auto) 0.2 x10^3/uL (0.0-0.2) Sodium Level 139 mmol/L (136-145) Potassium Level 3.4 mmol/L (3.5-5.1) Chloride Level 101 mmol/L (98-107) Carbon Dioxide Level 31 mmol/L (21-32) Anion Gap 7 (6-14) Blood Urea Nitrogen 14 mg/dL (7-20) Creatinine 0.8 mg/dL (0.6-1.0) Estimated GFR (Cockcroft-Gault) 87.7 Glucose Level 126 mg/dL (70-99) Calcium Level 9.5 mg/dL (8.5-10.1) Medications Active Scripts Medications Dose Route/Sig Max Daily Dose Days Date Category Trazodone Hcl 100 Mg Tablet 100 Mg PO HS 10/31/16 Reported Polyethylene Glycol 3350 255 Gm Powder 17 Gm PO DAILY 10/31/16 Reported Olanzapine 20 Mg Tablet 2 Tab PO QHS 10/31/16 Reported Montelukast Sodium Tablet (Montelukast Sodium) 10 Mg Tablet 10 Mg PO HS 10/31/16 Reported Meloxicam 15 Mg Tablet 1 Tab PO DAILY 10/31/16 Reported Losartan Potassium 50 Mg Tablet 50 Mg PO DAILY 10/31/16 Reported Lorazepam 1 Mg Tablet 1 Mg PO HS 10/31/16 Reported Lasix (Furosemide) 40 Mg Tablet 40 Mg PO PRN DAILY 10/31/16 Reported Hydrochlorothiazide Tablet (Hydrochlorothiazide) 25 Mg Tablet 25 Mg PO DAILY 10/31/16 Reported Folic Acid 1 Mg Tablet 1 Mg PO DAILY 10/31/16 Reported Fluoxetine Hcl 40 Mg Capsule 40 Mg PO DAILY 10/31/16 Reported Famotidine 20 Mg Tablet 20 Mg PO BID 10/31/16 Reported Duoneb 0.5-3(2.5) Mg/3 Ml (Albuterol/Ipratropium) 3 Ml Ampul.neb 3 Ml NEB QID 10/31/16 Reported Docusate Sodium 100 Mg Capsule 1 Cap PO BID 10/31/16 Reported Clonidine Hcl 0.1 Mg Tablet 0.1 Mg PO QID 10/31/16 Reported Cetirizine Hcl 10 Mg Tablet 1 Tab PO DAILY 10/31/16 Reported Impression . A/C HYPERCAPNIA /HYPOXEMIC RESP FAILURE. MULTIFACTORIAL FAILED BIPAP INTUBATED S/P TRACH 11/13 ACUTE HEART FAILURE SUSPECT DIASTOLIC TALHA/OHS ACUTE RENAL FAILURE MORBID OBESITY FEVER POSSIBLE PNEUMONIA GRAM NEG/GRAM POS, IMPROVED UTI KLEB s/p RHABDO LARYNGEAL EDEMA IMPROVED ETIOLOGY UNCLEAR ABN CXR, VOLUME LOSS LLL Plan . WEAN TOLERATED WITH PS,WEAN FIO2 AND PEEP ONCE DOWN TO PS 10, 45%fio2, WILL TRY TS ABG TODAY WILL NEED LTAC FOLLOW NEPHRO INPUT ANTIBX PER ID DVT AND GI PROPH NUTRITION PER TF CXR UNCHANGED TAPER PRED DOWN TO 10MG, MONITOR WBC D/W RN/RT CARLOS RODGERS MD Nov 21, 2016 11:06
--- NOTE | 2016-11-21 11:52 | PDOC ---
PROGRESS NOTES Chief Complaint Chief Complaint Acute hypoxic and hypercapnic resp failure with HAP, on vent with trach Fever and leukocytosis: Urinary tract infection, POA, klebsiella Healthcare associated pneumonia possible gram-negative rods COPD morbid obesity, BMI 53 chronic diastolic Congestive heart failure , LV ejection fraction 65% CKD with MICHI, vasomotor HX of schizophrenia, was in psych facility before admit here HTN, chronic tobaccoism hypophosphatemia moderate malnutrition in morbid obesity diffuse edema, chf and malnutrition History of Present Illness History of Present Illness NG Tube via Dobhoff Pt breathing spontaneously and doing well on pressure support 12/5 and 50% O2 Awake, following commands Possible disposition to LTAC Vitals Vitals Vital Signs Date Time Temp Pulse Resp B/P (MAP) Pulse Ox O2 Delivery O2 Flow Rate FiO2 11/21/16 07:31 94 Ventilator 11/21/16 06:00 82 36 135/70 (91) 11/21/16 04:00 99.4 99.4 11/20/16 20:00 3.0 Physical Exam Physical Exam Trach, dressings: intact, no bleeding, no leak Following commands Lungs: good vol, less wheeze Heart: S1 S2 General: Cooperative, No acute distress Heart: Regular rate, Normal S1, Normal S2 Lungs: Clear, Wheezing (Wheezing heard but continuing to improve) Abdomen: Soft, No tenderness Extremities: Normal pulses, Other (edema) Skin: No rashes, No significant lesion Review of Systems Review of Systems -Weakness Assessment and Plan Assessmemt and Plan HTN, chronic Plan: -Pt seen in ICU -Possible disposition to LTAC -Continue home meds -Continue ICU monitoring -Continue weaning from vent Problems: Comment Review of Relevant I have reviewed the following items asif (where applicable) has been applied. Labs Laboratory Tests Test 11/20/16 05:45 White Blood Count 15.2 x10^3/uL (4.0-11.0) Red Blood Count 3.22 x10^6/uL (3.50-5.40) Hemoglobin 9.4 g/dL (12.0-15.5) Hematocrit 29.4 % (36.0-47.0) Mean Corpuscular Volume 91 fL (79-100) Mean Corpuscular Hemoglobin 29 pg (25-35) Mean Corpuscular Hemoglobin Concent 32 g/dL (31-37) Red Cell Distribution Width 18.1 % (11.5-14.5) Platelet Count 358 x10^3/uL (140-400) Neutrophils (%) (Auto) 57 % (31-73) Lymphocytes (%) (Auto) 28 % (24-48) Monocytes (%) (Auto) 12 % (0-9) Eosinophils (%) (Auto) 2 % (0-3) Basophils (%) (Auto) 1 % (0-3) Neutrophils # (Auto) 8.6 x10^3uL (1.8-7.7) Lymphocytes # (Auto) 4.2 x10^3/uL (1.0-4.8) Monocytes # (Auto) 1.8 x10^3/uL (0.0-1.1) Eosinophils # (Auto) 0.3 x10^3/uL (0.0-0.7) Basophils # (Auto) 0.2 x10^3/uL (0.0-0.2) Sodium Level 139 mmol/L (136-145) Potassium Level 3.4 mmol/L (3.5-5.1) Chloride Level 101 mmol/L (98-107) Carbon Dioxide Level 31 mmol/L (21-32) Anion Gap 7 (6-14) Blood Urea Nitrogen 14 mg/dL (7-20) Creatinine 0.8 mg/dL (0.6-1.0) Estimated GFR (Cockcroft-Gault) 87.7 Glucose Level 126 mg/dL (70-99) Calcium Level 9.5 mg/dL (8.5-10.1) Microbiology 11/02/16 Blood Culture - Final, Complete NO GROWTH AFTER 5 DAYS 11/01/16 Sputum Culture - Final, Complete 11/01/16 Sputum Result 1 - Final, Complete 10/31/16 Urine Culture - Final, Complete 10/31/16 Urine Culture Result 1 (ISAIAS) - Final, Complete 10/31/16 Antimicrobic Susceptibility - Final, Complete Medications Current Medications Methylprednisolone Sodium Succinate (SOLU-Medrol 125MG VIAL) 125 mg 1X ONCE IV Last administered on 10/31/16t 11:18; Start 10/31/16 at 11:00; Stop 10/31/16 at 11:01; Status DC Albuterol/ Ipratropium (Duoneb) 3 ml 1X ONCE NEB Last administered on t 11:00; Start 10/31/16 at 11:00; Stop 10/31/16 at 11:01; Status DC Furosemide (Lasix) 40 mg 1X ONCE IVP Last administered on 10/31/16 11:17; Start 10/31/16 at 11:15; Stop 10/31/16 at 11:16; Status DC Vancomycin HCl (Vanco Per Pharmacy) 1 each PRN DAILY PRN MC SEE COMMENTS Last administered on 11/06/16 10:19; Start 10/31/16 at 11:30; Stop 11/06/16 at 14:40 ; Status DC Piperacillin Sod/ Tazobactam Sod (Zosyn Per Pharmacy) 1 each PRN DAILY PRN MC SEE COMMENTS; Start 10/31/16 at 11:30; Stop 11/02/16 at 08:44; Status DC Levofloxacin/ Dextrose (Levaquin Per Pharmacy) 1 each PRN DAILY PRN MC SEE COMMENTS; Start 10/31/16 at 11:30; Stop 10/31/16 at 12:57; Status DC Vancomycin HCl 2 gm/Sodium Chloride 500 ml @ 250 mls/hr 1X ONCE IV Last administered on 10/31/16 14:30; Start 10/31/16 at 11:30; Stop 10/31/16 at 13:29 ; Status DC Levofloxacin/ Dextrose 150 ml @ 100 mls/hr ONCE ONCE IV Last administered on 10/31/16 12:45; Start 10/31/16 at 11:30; Stop 10/31/16 at 12:59; Status DC Piperacillin Sod/ Tazobactam Sod 3.375 gm/Sodium Chloride 50 ml @ 100 mls/hr ONCE ONCE IV Last administered on 10/31/16 11:38; Start 10/31/16 at 11:45; Stop 10/31/16 at 12:14; Status DC Levofloxacin/ Dextrose 150 ml @ 100 mls/hr Q48H IV Last administered on 10:54; Start 11/02/16 at 10:00; Stop 11/05/16 at 09:18; Status DC Piperacillin Sod/ Tazobactam Sod 3.375 gm/Sodium Chloride 50 ml @ 100 mls/hr Q6HRS IV Last administered on 11/02/16 05:44; Start 10/31/16 at 18:00; Stop at 08:47; Status DC Acetaminophen (Tylenol) 650 mg PRN Q6HRS PRN PO FEVER Last administered on 11/01 20:26; Start 10/31/16 at 15:15; Stop 11/02/16 at 07:45; Status DC Ondansetron HCl (Zofran) 4 mg PRN Q6HRS PRN IV NAUSEA/VOMITING Last administered on 11/18/16 11:00; Start 10/31/16 at 15:15 Morphine Sulfate 2 mg PRN Q2HR PRN IV PAIN Last administered on 11/17/16 14:25 ; Start 10/31/16 at 15:15 Tramadol HCl (Ultram) 50 mg PRN Q6HRS PRN PO PAIN; Start 10/31/16 at 15:15 Hydralazine HCl (Apresoline) 10 mg PRN Q4HRS PRN IVP ELEVATED BP, SEE COMMENTS Last administered on 11/18/16 05:51; Start 10/31/16 at 15:15 Docusate Sodium (Colace) 100 mg PRN DAILY PRN PO CONSTIPATION Last administered on 11/05/16 12:04; Start 10/31/16 at 15:15 Albuterol/ Ipratropium (Duoneb) 3 ml RTQID NEB Last administered on 11/21/16 11 :29; Start 10/31/16 at 16:00 Albuterol Sulfate (Ventolin Neb Soln) 2.5 mg PRN Q4HRS PRN NEB SHORTNESS OF BREATH; Start 10/31/16 at 15:15 Heparin Sodium (Porcine) (Heparin Sq) 5,000 unit Q8HRS SQ Last administered on 11/21/16 05:37; Start 10/31/16 at 22:00 Famotidine (Pepcid) 20 mg QHS IVP Last administered on 11/20/16 21:20; Start at 21:00 Vancomycin HCl 2 gm/Sodium Chloride 500 ml @ 250 mls/hr Q24H IV Last administered on 11/02/16 14:14; Start 11/01/16 at 14:00; Stop 11/02/16 at 14:24 ; Status DC Vancomycin HCl 1 each 1X ONCE MC Last administered on 11/02/16 13:30; Start 11/02/16 at 13:30; Stop 11/02/16 at 13:31; Status DC Sodium Chloride 1,000 ml @ 80 mls/hr [id number] IV Last administered on 08:27; Start 10/31/16 at 16:15; Stop 11/05/16 at 08:31; Status DC Sodium Chloride 1,000 ml @ 1,000 mls/hr 1X ONCE IV Last administered on 18:04; Start 10/31/16 at 14:00; Stop 10/31/16 at 17:23; Status DC Sodium Chloride 500 ml @ 500 mls/hr 1X ONCE IV Last administered on 17:30; Start 10/31/16 at 17:30; Stop 10/31/16 at 18:29; Status DC Fentanyl Citrate 30 ml @ 0 mls/hr CONT PRN IV PROTOCOL Last administered on 11/15 00:05; Start 10/31/16 at 18:30 Propofol 100 ml @ 0 mls/hr CONT PRN IV PER PROTOCOL Last administered on 19:00; Start 10/31/16 at 18:30 Chlorhexidine Gluconate (Peridex) 15 ml BID MM Last administered on 11/14/16 09 :32; Start 10/31/16 at 21:00; Stop 11/14/16 at 20:23; Status DC Artificial Tears (Artificial Tears) 1 drop PRN Q1HR PRN OU DRY EYE; Start 10/31 at 18:30 Midazolam HCl 100 ml @ 0 mls/hr CONT PRN IV PER PROTOCOL Last administered on 02:29; Start 10/31/16 at 18:30 Succinylcholine Chloride (Anectine) 200 mg STK-MED ONCE .ROUTE ; Start 10/31/16 at 18:43; Stop 10/31/16 at 18:44; Status DC Midazolam HCl (Versed) 5 mg STK-MED ONCE .ROUTE ; Start 10/31/16 at 18:45; Stop 10/31/16 at 18:46; Status DC Midazolam HCl (Versed) 5 mg 1X ONCE IV Last administered on 10/31/16 19:30; Start 10/31/16 at 19:30; Stop 10/31/16 at 19:31; Status DC Succinylcholine Chloride (Anectine) 200 mg STK-MED ONCE .ROUTE ; Start 10/31/16 at 18:45; Stop 11/01/16 at 08:13; Status DC Furosemide (Lasix) 20 mg 1X ONCE IVP Last administered on 11/01/16 13:48; Start 11/01/16 at 13:30; Stop 11/01/16 at 13:31; Status DC Sodium Chloride 500 ml @ 500 mls/hr 1X ONCE IV Last administered on 23:09; Start 11/01/16 at 23:15; Stop 11/02/16 at 00:14; Status DC Acetaminophen (Tylenol) 650 mg PRN Q6HRS PRN PEG MILD PAIN / TEMP Last administered on 11/20/16 14:28; Start 11/02/16 at 07:45 Piperacillin Sod/ Tazobactam Sod 4.5 gm/Sodium Chloride 100 ml @ 200 mls/hr Q6HRS IV Last administered on 11/16/16 05:58; Start 11/02/16 at 12:00; Stop 11/16/16 at 07:25; Status DC Sodium Chloride 500 ml @ 500 mls/hr 1X ONCE IV Last administered on 14:10; Start 11/02/16 at 13:00; Stop 11/02/16 at 13:59; Status DC Sodium Chloride 1,000 ml @ 75 mls/hr [id number] IV ; Start 11/02/16 at 13:00; Stop 11/02/16 at 13:25; Status DC Vancomycin HCl 1.75 gm/Sodium Chloride 500 ml @ 250 mls/hr Q18H IV Last administered on 11/06/16 09:13; Start 11/03/16 at 08:00; Stop 11/06/16 at 14:39 ; Status DC Vancomycin HCl 1 each 1X ONCE MC Last administered on 11/04/16 19:30; Start 11/04/16 at 19:30; Stop 11/04/16 at 19:31; Status DC Metoclopramide HCl (Reglan) 10 mg 1X ONCE IV Last administered on 11/03/16 16 :35; Start 11/03/16 at 15:45; Stop 11/03/16 at 15:46; Status DC Furosemide (Lasix) 20 mg 1X ONCE IVP Last administered on 11/04/16 10:54; Start 11/04/16 at 10:30; Stop 11/04/16 at 10:31; Status DC Metoclopramide HCl (Reglan) 10 mg 1X ONCE IV Last administered on 11/04/16 17 :15; Start 11/04/16 at 17:15; Stop 11/04/16 at 17:16; Status DC Magnesium Sulfate/ Dextrose 50 ml @ 25 mls/hr PRN DAILY PRN IV for Mag < 1.7 on am labs; Start 11/05/16 at 08:15 Hydrochlorothiazide (Hydrodiuril) 25 mg DAILY PO Last administered on 12:04; Start 11/05/16 at 09:00; Stop 11/06/16 at 11:08; Status DC Levofloxacin/ Dextrose 150 ml @ 100 mls/hr Q24H IV Last administered on 10:00; Start 11/05/16 at 10:00; Stop 11/06/16 at 14:39; Status DC Sodium Chloride 1,000 ml @ 75 mls/hr [id number] IV Last administered on 04:54; Start 11/05/16 at 15:45; Stop 11/06/16 at 09:26; Status DC Sodium Chloride 1,000 ml @ 75 mls/hr [id number] IV Last administered on 09:38; Start 11/06/16 at 09:30; Stop 11/07/16 at 07:37; Status DC Furosemide (Lasix) 20 mg 1X ONCE IVP Last administered on 11/06/16 09:38; Start 11/06/16 at 09:30; Stop 11/06/16 at 09:31; Status DC Potassium Phosphate 10 mmol/ Sodium Chloride 103.3333 ml @ 51.667 m... Q2H IV Last administered on 11/06/16 20:16; Start 11/06/16 at 13:30; Stop 11/06/16 at 17:29; Status DC Dextrose 1,000 ml @ 50 mls/hr Q20H IV Last administered on 11/07/16 09:40; Start 11/07/16 at 09:15; Stop 11/07/16 at 12:31; Status DC Dextrose 1,000 ml @ 100 mls/hr Q10H IV Last administered on 11/09/16 08:20; Start 11/07/16 at 19:30; Stop 11/09/16 at 14:39; Status DC Furosemide (Lasix) 20 mg 1X ONCE IVP Last administered on 11/08/16 09:17; Start 11/08/16 at 09:30; Stop 11/08/16 at 09:31; Status DC Saliva Substitute (Biotene Moisturizing Mouth) 2 spray PRN Q15MIN PRN PO DRY MOUTH Last administered on 11/18/16 11:01; Start 11/08/16 at 17:30 Cetirizine HCl (ZyrTEC) 10 mg DAILY PO Last administered on 11/20/16 14:19; Start 11/10/16 at 09:00 Diphenhydramine HCl (Benadryl) 25 mg PRN Q6HRS PRN IVP ITCHING Last administered on 11/10/16 05:50; Start 11/09/16 at 10:30; Stop 11/10/16 at 14:00 ; Status DC Linezolid 300 ml @ 300 mls/hr Q12HR IV Last administered on 11/13/16 21:42; Start 11/10/16 at 10:00; Stop 11/14/16 at 07:40; Status DC Diphenhydramine HCl (Benadryl) 50 mg TID IVP Last administered on 11/19/16 09: 24; Start 11/10/16 at 14:00; Stop 11/19/16 at 10:32; Status DC Methylprednisolone Sodium Succinate (SOLU-Medrol 40MG VIAL) 40 mg Q12HR IV Last administered on 11/11/16 20:59; Start 11/10/16 at 11:00; Stop 11/12/16 at 08:09; Status DC Furosemide (Lasix) 60 mg 1X ONCE IVP Last administered on 11/11/16 10:26; Start 11/11/16 at 09:30; Stop 11/11/16 at 09:31; Status DC Prednisone (Prednisone) 40 mg DAILY PO Last administered on 8/5/17at 10:59; Start 11/12/16 at 09:00; Stop 11/19/16 at 07:17; Status DC Sevoflurane (Ultane) 60 ml STK-MED ONCE IH ; Start 11/13/16 at 12:24; Stop 11/13 at 12:25; Status DC Fentanyl Citrate (Fentanyl 2ml Vial) 100 mcg STK-MED ONCE .ROUTE ; Start at 12:24; Stop 11/13/16 at 12:25; Status DC Midazolam HCl (Versed) 2 mg STK-MED ONCE .ROUTE ; Start 11/13/16 at 12:24; Stop 11/13/16 at 12:25; Status DC Vecuronium Vansant (Norcuron Bolus) 10 mg STK-MED ONCE IV ; Start 11/13/16 at 12 :24; Stop 11/13/16 at 12:25; Status DC Fentanyl Citrate (Fentanyl 2ml Vial) 100 mcg STK-MED ONCE .ROUTE ; Start at 13:33; Stop 11/13/16 at 13:34; Status DC Potassium Chloride 50 ml @ 50 mls/hr Q1H IV Last administered on 11/13/16 20: 42; Start 11/13/16 at 16:15; Stop 11/13/16 at 18:14; Status DC Propofol 100 ml @ 0 mls/hr CONT PRN IV SEE I/O RECORD; Start 11/15/16 at 17:00; Status UNV Nystatin 5 ml [id number] Last administered on 11/20/16 21:20; Start 11/17/16 at 09:30 Prednisone (Prednisone) 20 mg DAILY PO Last administered on 11/20/16 14:19; Start 11/19/16 at 09:00; Stop 11/21/16 at 11:07; Status DC Alteplase, Recombinant (Cathflo) 2 mg 1X ONCE INT CAT Last administered on 11/19 15:40; Start 11/19/16 at 15:15; Stop 11/19/16 at 15:16; Status DC Potassium Chloride (KCl Oral Soln) 40 meq 1X ONCE PEG Last administered on 11/20 14:25; Start 11/20/16 at 14:30; Stop 11/20/16 at 14:31; Status DC Prednisone (Prednisone) 10 mg DAILY PO ; Start 11/22/16 at 09:00 Active Scripts Active Reported Trazodone Hcl 100 Mg Tablet 100 Mg PO HS Polyethylene Glycol 3350 255 Gm Powder 17 Gm PO DAILY Olanzapine 20 Mg Tablet 2 Tab PO QHS Montelukast Sodium Tablet (Montelukast Sodium) 10 Mg Tablet 10 Mg PO HS Meloxicam 15 Mg Tablet 1 Tab PO DAILY Losartan Potassium 50 Mg Tablet 50 Mg PO DAILY Lorazepam 1 Mg Tablet 1 Mg PO HS Lasix (Furosemide) 40 Mg Tablet 40 Mg PO PRN DAILY Hydrochlorothiazide Tablet (Hydrochlorothiazide) 25 Mg Tablet 25 Mg PO DAILY Folic Acid 1 Mg Tablet 1 Mg PO DAILY Fluoxetine Hcl 40 Mg Capsule 40 Mg PO DAILY Famotidine 20 Mg Tablet 20 Mg PO BID Duoneb 0.5-3(2.5) Mg/3 Ml (Albuterol/Ipratropium) 3 Ml Ampul.neb 3 Ml NEB QID Docusate Sodium 100 Mg Capsule 1 Cap PO BID Clonidine Hcl 0.1 Mg Tablet 0.1 Mg PO QID Cetirizine Hcl 10 Mg Tablet 1 Tab PO DAILY Vitals/I & O Vital Sign - Last 24 Hours 11/20/16 11/20/16 11/20/16 11/20/16 12:00 12:00 13:00 13:15 Temp 99.2 99.2 Pulse 72 72 Resp 20 20 B/P (MAP) 141/76 (97) 127/64 (85) Pulse Ox 96 95 97 O2 Delivery Mechanical Ventilator Ventilator Ventilator Ventilator 11/20/16 11/20/16 11/20/16 11/20/16 14:00 15:00 15:44 15:58 Pulse 79 82 Resp 22 22 B/P (MAP) 140/73 (95) 137/72 (93) Pulse Ox 94 96 97 O2 Delivery Ventilator Ventilator Ventilator Mechanical Ventilator 11/20/16 11/20/16 11/20/16 11/20/16 16:03 17:00 17:35 18:07 Temp 99.2 99.2 99.2 99.2 99.2 99.2 Pulse 75 81 81 Resp 18 21 21 B/P (MAP) 142/79 (100) 151/88 (109) 162/79 (106) Pulse Ox 97 97 96 96 O2 Delivery Ventilator Ventilator Ventilator O2 Flow Rate 3.0 3.0 3.0 11/20/16 11/20/16 11/20/16 11/20/16 19:00 19:50 20:00 20:00 Temp 99.4 99.4 Pulse 81 87 Resp 36 34 B/P (MAP) 162/79 (106) 168/78 (108) Pulse Ox 96 93 95 O2 Delivery Ventilator Ventilator Ventilator Mechanical Ventilator O2 Flow Rate 3.0 3.0 11/20/16 11/20/16 11/20/16 11/20/16 21:00 21:00 22:00 23:00 Pulse 82 82 82 Resp 36 36 36 B/P (MAP) 150/80 (103) 157/70 (99) 155/84 (107) Pulse Ox 95 95 95 95 O2 Delivery Ventilator Ventilator Ventilator Ventilator 11/20/16 11/20/16 11/21/16 11/21/16 23:00 23:59 00:00 01:00 Temp 99.1 99.1 Pulse 92 82 Resp 23 29 B/P (MAP) 155/84 (107) 143/77 (99) Pulse Ox 93 95 94 O2 Delivery Ventilator Mechanical Ventilator Ventilator Ventilator 11/21/16 11/21/16 11/21/16 11/21/16 01:00 02:00 02:23 03:00 Pulse 82 82 Resp 29 29 B/P (MAP) 136/71 (92) 155/86 (109) Pulse Ox 93 94 94 94 O2 Delivery Ventilator Ventilator Ventilator Ventilator 11/21/16 11/21/16 11/21/16 11/21/16 04:00 04:00 05:00 05:30 Temp 99.4 99.4 Pulse 82 89 Resp 29 20 B/P (MAP) 129/71 (90) 152/79 (103) Pulse Ox 96 94 93 O2 Delivery Mechanical Ventilator Ventilator Ventilator Ventilator 11/21/16 11/21/16 06:00 07:31 Pulse 82 Resp 36 B/P (MAP) 135/70 (91) Pulse Ox 94 94 O2 Delivery Ventilator Ventilator Intake and Output 11/20/16 11/20/16 11/21/16 15:00 23:00 07:00 Intake Total 0 ml 730 ml 1204 ml Output Total 1300 ml 3250 ml 850 ml Balance -1300 ml -2520 ml 354 ml HEATHER AVILES III DO Nov 21, 2016 11:52
[2016-11-21 12:42] LABS: HCO3 ABG 24 mmol/L (21-28); PCO2 ABG 30 mmHg (35-46); PH ABG 7.51 (7.35-7.45); PO2 ABG 76 mmHg (65-108); SAT O2 ABG 95 % (92-99)
[2016-11-21 12:45] LABS: FIO2 ABG 50
[2016-11-21] MEDS: CETIRIZINE HCL 10 MG TABLET. PO SCH (13:44)
[2016-11-21] MEDS: FAMOTIDINE 20 MG/2 ML VIAL IVP SCH (21:33)
[2016-11-22] VITALS (12 sets, daily range): BP systolic 120–151; BP diastolic 67–92
[2016-11-22] MEDS: HEPARIN PF for SUB-Q USE 5,000 UNIT/0.5 ML VIAL. SQ SCH (05:34)
[2016-11-22] MEDS: NYSTATIN 100,000 UNITS/ML 5 ML ORAL.SUSP. SWSW SCH (08:29)
[2016-11-22] MEDS: CETIRIZINE HCL 10 MG TABLET. PO SCH (08:29)
[2016-11-22] MEDS ORDERED: predniSONE 10 MG TABLET PO SCH (09:00)
[2016-11-22] MEDS: IPRATRPIUM/ALBUTEROL 0.5/2.5MG 3 ML NEBU. NEB SCH (09:25)
--- NOTE | 2016-11-22 10:23 | PDOC ---
PULMONARY PROGRESS NOTES Subjective AWAKE ON CPAP MODE ON 45%FIO2 Vitals Vital Signs Date Time Temp Pulse Resp B/P (MAP) Pulse Ox O2 Delivery O2 Flow Rate FiO2 11/22/16 09:25 99 Ventilator 11/22/16 07:00 98 30 151/74 (99) 11/22/16 04:00 98.2 98.2 ROS: No Nausea, No Chest Pain, No Abdominal Pain, No Increase Cough General: Alert, No acute distress Lungs: Clear, Wheezing (Wheezing heard but continuing to improve) Cardiovascular: S1, S2 Abdomen: Soft, Non-tender, Other (obese) Neuro Exam: Alert, Oriented Extremities: Other (edema) Skin: Warm Labs Laboratory Tests Test 11/21/16 12:30 O2 Saturation 95 % (92-99) Arterial Blood pH 7.51 (7.35-7.45) Arterial Blood pCO2 at Patient Temp 30 mmHg (35-46) Arterial Blood pO2 at Patient Temp 76 mmHg (65-108) Arterial Blood HCO3 24 mmol/L (21-28) Arterial Blood Base Excess 2 mmol/L (-3-3) FiO2 50 Laboratory Tests Test 11/21/16 12:30 O2 Saturation 95 % (92-99) Arterial Blood pH 7.51 (7.35-7.45) Arterial Blood pCO2 at Patient Temp 30 mmHg (35-46) Arterial Blood pO2 at Patient Temp 76 mmHg (65-108) Arterial Blood HCO3 24 mmol/L (21-28) Arterial Blood Base Excess 2 mmol/L (-3-3) FiO2 50 Medications Active Scripts Medications Dose Route/Sig Max Daily Dose Days Date Category Trazodone Hcl 100 Mg Tablet 100 Mg PO HS 10/31/16 Reported Polyethylene Glycol 3350 255 Gm Powder 17 Gm PO DAILY 10/31/16 Reported Olanzapine 20 Mg Tablet 2 Tab PO QHS 10/31/16 Reported Montelukast Sodium Tablet (Montelukast Sodium) 10 Mg Tablet 10 Mg PO HS 10/31/16 Reported Meloxicam 15 Mg Tablet 1 Tab PO DAILY 10/31/16 Reported Losartan Potassium 50 Mg Tablet 50 Mg PO DAILY 10/31/16 Reported Lorazepam 1 Mg Tablet 1 Mg PO HS 10/31/16 Reported Lasix (Furosemide) 40 Mg Tablet 40 Mg PO PRN DAILY 10/31/16 Reported Hydrochlorothiazide Tablet (Hydrochlorothiazide) 25 Mg Tablet 25 Mg PO DAILY 10/31/16 Reported Folic Acid 1 Mg Tablet 1 Mg PO DAILY 10/31/16 Reported Fluoxetine Hcl 40 Mg Capsule 40 Mg PO DAILY 10/31/16 Reported Famotidine 20 Mg Tablet 20 Mg PO BID 10/31/16 Reported Duoneb 0.5-3(2.5) Mg/3 Ml (Albuterol/Ipratropium) 3 Ml Ampul.neb 3 Ml NEB QID 10/31/16 Reported Docusate Sodium 100 Mg Capsule 1 Cap PO BID 10/31/16 Reported Clonidine Hcl 0.1 Mg Tablet 0.1 Mg PO QID 10/31/16 Reported Cetirizine Hcl 10 Mg Tablet 1 Tab PO DAILY 10/31/16 Reported Impression . A/C HYPERCAPNIA /HYPOXEMIC RESP FAILURE. MULTIFACTORIAL FAILED BIPAP INTUBATED S/P TRACH 11/13 ACUTE HEART FAILURE SUSPECT DIASTOLIC TALHA/OHS ACUTE RENAL FAILURE MORBID OBESITY PNEUMONIA, IMPROVED UTI KLEB s/p RHABDO LARYNGEAL EDEMA IMPROVED ETIOLOGY UNCLEAR ABN CXR, VOLUME LOSS LLL Plan . TS TOLERATED DURING DAY ABG ADEQUATE WILL NEED LTAC FOLLOW NEPHRO INPUT ANTIBX PER ID DVT AND GI PROPH NUTRITION PER TF CXR UNCHANGED TAPER PRED DOWN TO 10MG, MONITOR WBC D/W RN/RT CARLOS RODGERS MD Nov 22, 2016 10:23
--- NOTE | 2016-11-22 11:21 | PDOC ---
PROGRESS NOTES Chief Complaint Chief Complaint CC Acute hypoxic and hypercapnic resp failure Fever and leukocytosis: Urinary tract infection, POA, klebsiella Healthcare associated pneumonia possible gram-negative rods COPD morbid obesity, BMI 53 chronic diastolic Congestive heart failure , LV ejection fraction 65% CKD with MICHI, vasomotor HX of schizophrenia, was in psych facility before admit here HTN, chronic tobaccoism hypophosphatemia moderate malnutrition in morbid obesity diffuse edema, chf and malnutrition History of Present Illness History of Present Illness 61 y/o F with CC respiratory failure PT was seen in the ICU with NG Tube via Dobhoff Pt breathing spontaneously with 12 rpm TV 500 ml, FiO2 45%, PEEP5.0 Pt was alert, Awake, and following commands Possible disposition to LTAC Vitals Vitals Vital Signs Date Time Temp Pulse Resp B/P (MAP) Pulse Ox O2 Delivery O2 Flow Rate FiO2 11/22/16 10:00 94 27 128/70 (89) 97 11/22/16 09:25 Ventilator 11/22/16 08:00 98.8 98.8 Physical Exam Physical Exam Trach, dressings: intact, no bleeding, no leak Following commands Lungs: good vol, less wheeze Heart: S1 S2 General: Alert, Cooperative, No acute distress Heart: Regular rate, Normal S1, Normal S2 Lungs: Clear, Other Abdomen: Normal bowel sounds, Soft, No tenderness Extremities: Normal pulses, Other (edema) Skin: No rashes, No significant lesion Labs LABS Laboratory Tests Test 11/21/16 12:30 O2 Saturation 95 % (92-99) Arterial Blood pH 7.51 (7.35-7.45) Arterial Blood pCO2 at Patient Temp 30 mmHg (35-46) Arterial Blood pO2 at Patient Temp 76 mmHg (65-108) Arterial Blood HCO3 24 mmol/L (21-28) Arterial Blood Base Excess 2 mmol/L (-3-3) FiO2 50 Review of Systems Review of Systems pt appeared weak but alert and intermittently confused no N/V/D Assessment and Plan Assessmemt and Plan CC Acute hypoxic and hypercapnic resp failure Fever and leukocytosis: Urinary tract infection, POA, klebsiella Healthcare associated pneumonia possible gram-negative rods COPD morbid obesity, BMI 53 chronic diastolic Congestive heart failure , LV ejection fraction 65% CKD with MICHI, vasomotor HX of schizophrenia, was in psych facility before admit here HTN, chronic tobaccoism hypophosphatemia moderate malnutrition in morbid obesity diffuse edema, chf and malnutrition PLAN -ventilation management per pulm -appreciate subspecialist input -disposition to LTAC -continue abx -continue home meds -monitor electrolyte and fluid status Problems: Comment Review of Relevant I have reviewed the following items asif (where applicable) has been applied. Labs Laboratory Tests Test 11/21/16 12:30 O2 Saturation 95 % (92-99) Arterial Blood pH 7.51 (7.35-7.45) Arterial Blood pCO2 at Patient Temp 30 mmHg (35-46) Arterial Blood pO2 at Patient Temp 76 mmHg (65-108) Arterial Blood HCO3 24 mmol/L (21-28) Arterial Blood Base Excess 2 mmol/L (-3-3) FiO2 50 Laboratory Tests Test 11/21/16 12:30 O2 Saturation 95 % (92-99) Arterial Blood pH 7.51 (7.35-7.45) Arterial Blood pCO2 at Patient Temp 30 mmHg (35-46) Arterial Blood pO2 at Patient Temp 76 mmHg (65-108) Arterial Blood HCO3 24 mmol/L (21-28) Arterial Blood Base Excess 2 mmol/L (-3-3) FiO2 50 Microbiology 11/02/16 Blood Culture - Final, Complete NO GROWTH AFTER 5 DAYS 11/01/16 Sputum Culture - Final, Complete 11/01/16 Sputum Result 1 - Final, Complete 10/31/16 Urine Culture - Final, Complete 10/31/16 Urine Culture Result 1 (ISAIAS) - Final, Complete 10/31/16 Antimicrobic Susceptibility - Final, Complete Medications Current Medications Methylprednisolone Sodium Succinate (SOLU-Medrol 125MG VIAL) 125 mg 1X ONCE IV Last administered on 10/31/16 11:18; Start 10/31/16 at 11:00; Stop 10/31/16 at 11:01; Status DC Albuterol/ Ipratropium (Duoneb) 3 ml 1X ONCE NEB Last administered on 11:00; Start 10/31/16 at 11:00; Stop 10/31/16 at 11:01; Status DC Furosemide (Lasix) 40 mg 1X ONCE IVP Last administered on 10/31/16 11:17; Start 10/31/16 at 11:15; Stop 10/31/16 at 11:16; Status DC Vancomycin HCl (Vanco Per Pharmacy) 1 each PRN DAILY PRN MC SEE COMMENTS Last administered on 11/06/16 10:19; Start 10/31/16 at 11:30; Stop 11/06/16 at 14:40 ; Status DC Piperacillin Sod/ Tazobactam Sod (Zosyn Per Pharmacy) 1 each PRN DAILY PRN MC SEE COMMENTS; Start 10/31/16 at 11:30; Stop 11/02/16 at 08:44; Status DC Levofloxacin/ Dextrose (Levaquin Per Pharmacy) 1 each PRN DAILY PRN MC SEE COMMENTS; Start 10/31/16 at 11:30; Stop 10/31/16 at 12:57; Status DC Vancomycin HCl 2 gm/Sodium Chloride 500 ml @ 250 mls/hr 1X ONCE IV Last administered on 10/31/16 14:30; Start 10/31/16 at 11:30; Stop 10/31/16 at 13:29 ; Status DC Levofloxacin/ Dextrose 150 ml @ 100 mls/hr ONCE ONCE IV Last administered on 10/31/16 12:45; Start 10/31/16 at 11:30; Stop 10/31/16 at 12:59; Status DC Piperacillin Sod/ Tazobactam Sod 3.375 gm/Sodium Chloride 50 ml @ 100 mls/hr ONCE ONCE IV Last administered on 10/31/16 11:38; Start 10/31/16 at 11:45; Stop 10/31/16 at 12:14; Status DC Levofloxacin/ Dextrose 150 ml @ 100 mls/hr Q48H IV Last administered on 10:54; Start 11/02/16 at 10:00; Stop 11/05/16 at 09:18; Status DC Piperacillin Sod/ Tazobactam Sod 3.375 gm/Sodium Chloride 50 ml @ 100 mls/hr Q6HRS IV Last administered on 11/02/16 05:44; Start 10/31/16 at 18:00; Stop at 08:47; Status DC Acetaminophen (Tylenol) 650 mg PRN Q6HRS PRN PO FEVER Last administered on 11/01 20:26; Start 10/31/16 at 15:15; Stop 11/02/16 at 07:45; Status DC Ondansetron HCl (Zofran) 4 mg PRN Q6HRS PRN IV NAUSEA/VOMITING Last administered on 11/18/16 11:00; Start 10/31/16 at 15:15 Morphine Sulfate 2 mg PRN Q2HR PRN IV PAIN Last administered on 11/17/16 14:25 ; Start 10/31/16 at 15:15 Tramadol HCl (Ultram) 50 mg PRN Q6HRS PRN PO PAIN; Start 10/31/16 at 15:15 Hydralazine HCl (Apresoline) 10 mg PRN Q4HRS PRN IVP ELEVATED BP, SEE COMMENTS Last administered on 11/18/16 05:51; Start 10/31/16 at 15:15 Docusate Sodium (Colace) 100 mg PRN DAILY PRN PO CONSTIPATION Last administered on 11/05/16 12:04; Start 10/31/16 at 15:15 Albuterol/ Ipratropium (Duoneb) 3 ml RTQID NEB Last administered on 11/22/16 09 :25; Start 10/31/16 at 16:00 Albuterol Sulfate (Ventolin Neb Soln) 2.5 mg PRN Q4HRS PRN NEB SHORTNESS OF BREATH; Start 10/31/16 at 15:15 Heparin Sodium (Porcine) (Heparin Sq) 5,000 unit Q8HRS SQ Last administered on 11/22/16 05:34; Start 10/31/16 at 22:00 Famotidine (Pepcid) 20 mg QHS IVP Last administered on 11/21/16 21:33; Start at 21:00 Vancomycin HCl 2 gm/Sodium Chloride 500 ml @ 250 mls/hr Q24H IV Last administered on 11/02/16 14:14; Start 11/01/16 at 14:00; Stop 11/02/16 at 14:24 ; Status DC Vancomycin HCl 1 each 1X ONCE MC Last administered on 11/02/16 13:30; Start 11/02/16 at 13:30; Stop 11/02/16 at 13:31; Status DC Sodium Chloride 1,000 ml @ 80 mls/hr [id number] IV Last administered on 08:27; Start 10/31/16 at 16:15; Stop 11/05/16 at 08:31; Status DC Sodium Chloride 1,000 ml @ 1,000 mls/hr 1X ONCE IV Last administered on 18:04; Start 10/31/16 at 14:00; Stop 10/31/16 at 17:23; Status DC Sodium Chloride 500 ml @ 500 mls/hr 1X ONCE IV Last administered on 17:30; Start 10/31/16 at 17:30; Stop 10/31/16 at 18:29; Status DC Fentanyl Citrate 30 ml @ 0 mls/hr CONT PRN IV PROTOCOL Last administered on 11/15 00:05; Start 10/31/16 at 18:30 Propofol 100 ml @ 0 mls/hr CONT PRN IV PER PROTOCOL Last administered on 19:00; Start 10/31/16 at 18:30 Chlorhexidine Gluconate (Peridex) 15 ml BID MM Last administered on 11/14/16 09 :32; Start 10/31/16 at 21:00; Stop 11/14/16 at 20:23; Status DC Artificial Tears (Artificial Tears) 1 drop PRN Q1HR PRN OU DRY EYE; Start 10/31 at 18:30 Midazolam HCl 100 ml @ 0 mls/hr CONT PRN IV PER PROTOCOL Last administered on 02:29; Start 10/31/16 at 18:30 Succinylcholine Chloride (Anectine) 200 mg STK-MED ONCE .ROUTE ; Start 10/31/16 at 18:43; Stop 10/31/16 at 18:44; Status DC Midazolam HCl (Versed) 5 mg STK-MED ONCE .ROUTE ; Start 10/31/16 at 18:45; Stop 10/31/16 at 18:46; Status DC Midazolam HCl (Versed) 5 mg 1X ONCE IV Last administered on 10/31/16 19:30; Start 10/31/16 at 19:30; Stop 10/31/16 at 19:31; Status DC Succinylcholine Chloride (Anectine) 200 mg STK-MED ONCE .ROUTE ; Start 10/31/16 at 18:45; Stop 11/01/16 at 08:13; Status DC Furosemide (Lasix) 20 mg 1X ONCE IVP Last administered on 11/01/16 13:48; Start 11/01/16 at 13:30; Stop 11/01/16 at 13:31; Status DC Sodium Chloride 500 ml @ 500 mls/hr 1X ONCE IV Last administered on 23:09; Start 11/01/16 at 23:15; Stop 11/02/16 at 00:14; Status DC Acetaminophen (Tylenol) 650 mg PRN Q6HRS PRN PEG MILD PAIN / TEMP Last administered on 11/20/16 14:28; Start 11/02/16 at 07:45 Piperacillin Sod/ Tazobactam Sod 4.5 gm/Sodium Chloride 100 ml @ 200 mls/hr Q6HRS IV Last administered on 11/16/16 05:58; Start 11/02/16 at 12:00; Stop 11/16/16 at 07:25; Status DC Sodium Chloride 500 ml @ 500 mls/hr 1X ONCE IV Last administered on 14:10; Start 11/02/16 at 13:00; Stop 11/02/16 at 13:59; Status DC Sodium Chloride 1,000 ml @ 75 mls/hr [id number] IV ; Start 11/02/16 at 13:00; Stop 11/02/16 at 13:25; Status DC Vancomycin HCl 1.75 gm/Sodium Chloride 500 ml @ 250 mls/hr Q18H IV Last administered on 11/06/16 09:13; Start 11/03/16 at 08:00; Stop 11/06/16 at 14:39 ; Status DC Vancomycin HCl 1 each 1X ONCE MC Last administered on 11/04/16 19:30; Start 11/04/16 at 19:30; Stop 11/04/16 at 19:31; Status DC Metoclopramide HCl (Reglan) 10 mg 1X ONCE IV Last administered on 11/03/16 16 :35; Start 11/03/16 at 15:45; Stop 11/03/16 at 15:46; Status DC Furosemide (Lasix) 20 mg 1X ONCE IVP Last administered on 11/04/16 10:54; Start 11/04/16 at 10:30; Stop 11/04/16 at 10:31; Status DC Metoclopramide HCl (Reglan) 10 mg 1X ONCE IV Last administered on 11/04/16 17 :15; Start 11/04/16 at 17:15; Stop 11/04/16 at 17:16; Status DC Magnesium Sulfate/ Dextrose 50 ml @ 25 mls/hr PRN DAILY PRN IV for Mag < 1.7 on am labs; Start 11/05/16 at 08:15 Hydrochlorothiazide (Hydrodiuril) 25 mg DAILY PO Last administered on 12:04; Start 11/05/16 at 09:00; Stop 11/06/16 at 11:08; Status DC Levofloxacin/ Dextrose 150 ml @ 100 mls/hr Q24H IV Last administered on 10:00; Start 11/05/16 at 10:00; Stop 11/06/16 at 14:39; Status DC Sodium Chloride 1,000 ml @ 75 mls/hr [id number] IV Last administered on 04:54; Start 11/05/16 at 15:45; Stop 11/06/16 at 09:26; Status DC Sodium Chloride 1,000 ml @ 75 mls/hr [id number] IV Last administered on 09:38; Start 11/06/16 at 09:30; Stop 11/07/16 at 07:37; Status DC Furosemide (Lasix) 20 mg 1X ONCE IVP Last administered on 11/06/16 09:38; Start 11/06/16 at 09:30; Stop 11/06/16 at 09:31; Status DC Potassium Phosphate 10 mmol/ Sodium Chloride 103.3333 ml @ 51.667 m... Q2H IV Last administered on 11/06/16 20:16; Start 11/06/16 at 13:30; Stop 11/06/16 at 17:29; Status DC Dextrose 1,000 ml @ 50 mls/hr Q20H IV Last administered on 11/07/16 09:40; Start 11/07/16 at 09:15; Stop 11/07/16 at 12:31; Status DC Dextrose 1,000 ml @ 100 mls/hr Q10H IV Last administered on 11/09/16 08:20; Start 11/07/16 at 19:30; Stop 11/09/16 at 14:39; Status DC Furosemide (Lasix) 20 mg 1X ONCE IVP Last administered on 11/08/16 09:17; Start 11/08/16 at 09:30; Stop 11/08/16 at 09:31; Status DC Saliva Substitute (Biotene Moisturizing Mouth) 2 spray PRN Q15MIN PRN PO DRY MOUTH Last administered on 11/18/16 11:01; Start 11/08/16 at 17:30 Cetirizine HCl (ZyrTEC) 10 mg DAILY PO Last administered on 11/22/16 08:29; Start 11/10/16 at 09:00 Diphenhydramine HCl (Benadryl) 25 mg PRN Q6HRS PRN IVP ITCHING Last administered on 11/10/16 05:50; Start 11/09/16 at 10:30; Stop 11/10/16 at 14:00 ; Status DC Linezolid 300 ml @ 300 mls/hr Q12HR IV Last administered on 11/13/16 21:42; Start 11/10/16 at 10:00; Stop 11/14/16 at 07:40; Status DC Diphenhydramine HCl (Benadryl) 50 mg TID IVP Last administered on 11/19/16 09: 24; Start 11/10/16 at 14:00; Stop 11/19/16 at 10:32; Status DC Methylprednisolone Sodium Succinate (SOLU-Medrol 40MG VIAL) 40 mg Q12HR IV Last administered on 11/11/16 20:59; Start 11/10/16 at 11:00; Stop 11/12/16 at 08:09; Status DC Furosemide (Lasix) 60 mg 1X ONCE IVP Last administered on 11/11/16 10:26; Start 11/11/16 at 09:30; Stop 11/11/16 at 09:31; Status DC Prednisone (Prednisone) 40 mg DAILY PO Last administered on 11/18/16 10:59; Start 11/12/16 at 09:00; Stop 11/19/16 at 07:17; Status DC Sevoflurane (Ultane) 60 ml STK-MED ONCE IH ; Start 11/13/16 at 12:24; Stop 11/13 at 12:25; Status DC Fentanyl Citrate (Fentanyl 2ml Vial) 100 mcg STK-MED ONCE .ROUTE ; Start at 12:24; Stop 11/13/16 at 12:25; Status DC Midazolam HCl (Versed) 2 mg STK-MED ONCE .ROUTE ; Start 11/13/16 at 12:24; Stop 11/13/16 at 12:25; Status DC Vecuronium [place] (Norcuron Bolus) 10 mg STK-MED ONCE IV ; Start 11/13/16 at 12 :24; Stop 11/13/16 at 12:25; Status DC Fentanyl Citrate (Fentanyl 2ml Vial) 100 mcg STK-MED ONCE .ROUTE ; Start at 13:33; Stop 11/13/16 at 13:34; Status DC Potassium Chloride 50 ml @ 50 mls/hr Q1H IV Last administered on 11/13/16 20: 42; Start 11/13/16 at 16:15; Stop 11/13/16 at 18:14; Status DC Propofol 100 ml @ 0 mls/hr CONT PRN IV SEE I/O RECORD; Start 11/15/16 at 17:00; Status UNV Nystatin 5 ml [id number] Last administered on 11/22/16 08:29; Start 11/17/16 at 09:30 Prednisone (Prednisone) 20 mg DAILY PO Last administered on 11/20/16 14:19; Start 11/19/16 at 09:00; Stop 11/21/16 at 11:07; Status DC Alteplase, Recombinant (Cathflo) 2 mg 1X ONCE INT CAT Last administered on 11/19 15:40; Start 11/19/16 at 15:15; Stop 11/19/16 at 15:16; Status DC Potassium Chloride (KCl Oral Soln) 40 meq 1X ONCE PEG Last administered on 11/20 14:25; Start 11/20/16 at 14:30; Stop 11/20/16 at 14:31; Status DC Prednisone (Prednisone) 10 mg DAILY PO Last administered on 11/22/16 08:29; Start 11/22/16 at 09:00 Active Scripts Active Reported Trazodone Hcl 100 Mg Tablet 100 Mg PO HS Polyethylene Glycol 3350 255 Gm Powder 17 Gm PO DAILY Olanzapine 20 Mg Tablet 2 Tab PO QHS Montelukast Sodium Tablet (Montelukast Sodium) 10 Mg Tablet 10 Mg PO HS Meloxicam 15 Mg Tablet 1 Tab PO DAILY Losartan Potassium 50 Mg Tablet 50 Mg PO DAILY Lorazepam 1 Mg Tablet 1 Mg PO HS Lasix (Furosemide) 40 Mg Tablet 40 Mg PO PRN DAILY Hydrochlorothiazide Tablet (Hydrochlorothiazide) 25 Mg Tablet 25 Mg PO DAILY Folic Acid 1 Mg Tablet 1 Mg PO DAILY Fluoxetine Hcl 40 Mg Capsule 40 Mg PO DAILY Famotidine 20 Mg Tablet 20 Mg PO BID Duoneb 0.5-3(2.5) Mg/3 Ml (Albuterol/Ipratropium) 3 Ml Ampul.neb 3 Ml NEB QID Docusate Sodium 100 Mg Capsule 1 Cap PO BID Clonidine Hcl 0.1 Mg Tablet 0.1 Mg PO QID Cetirizine Hcl 10 Mg Tablet 1 Tab PO DAILY Vitals/I & O Vital Sign - Last 24 Hours 11/21/16 11/21/16 11/21/16 11/21/16 11:29 12:00 12:00 13:00 Temp 98.3 98.3 Pulse 116 86 Resp 40 30 B/P (MAP) 147/77 (100) 147/76 (99) Pulse Ox 95 98 98 O2 Delivery Ventilator Mechanical Ventilator Ventilator Ventilator 11/21/16 11/21/16 11/21/16 11/21/16 14:00 15:41 16:00 17:30 Pulse 84 Resp 33 B/P (MAP) 156/79 (104) Pulse Ox 94 96 97 O2 Delivery Ventilator Ventilator Mechanical Ventilator Ventilator 11/21/16 11/21/16 11/21/16 11/21/16 19:00 19:25 20:00 20:00 Temp 98.1 98.1 Pulse 84 89 Resp 30 30 B/P (MAP) 176/86 (116) 159/96 (117) Pulse Ox 96 96 96 O2 Delivery Ventilator Ventilator Mechanical Ventilator Ventilator 11/21/16 11/21/16 11/21/16 11/21/16 21:00 22:00 23:00 23:15 Pulse 91 92 108 Resp 30 30 30 B/P (MAP) 148/68 (94) 139/68 (91) 148/73 (98) Pulse Ox 96 96 96 93 O2 Delivery Ventilator Ventilator Ventilator Ventilator 11/21/16 11/22/16 11/22/16 11/22/16 23:59 00:00 01:00 01:17 Pulse 95 75 Resp 30 30 B/P (MAP) 142/67 (92) 124/70 (88) Pulse Ox 96 96 93 O2 Delivery Mechanical Ventilator Ventilator Ventilator Ventilator 11/22/16 11/22/16 11/22/16 11/22/16 02:00 03:00 03:40 04:00 Pulse 78 80 Resp 30 30 B/P (MAP) 148/77 (100) 120/92 (101) Pulse Ox 96 96 93 O2 Delivery Ventilator Ventilator Ventilator Mechanical Ventilator 11/22/16 11/22/16 11/22/16 11/22/16 04:00 05:00 05:31 06:00 Temp 98.2 98.2 Pulse 93 83 79 Resp 30 30 30 B/P (MAP) 135/78 (97) 150/82 (104) 127/74 (91) Pulse Ox 96 96 93 96 O2 Delivery Ventilator Ventilator Ventilator Ventilator 11/22/16 11/22/16 11/22/16 11/22/16 07:00 08:00 08:00 09:00 Temp 98.8 98.8 Pulse 98 98 94 Resp 30 28 31 B/P (MAP) 151/74 (99) 128/80 (96) 128/71 (90) Pulse Ox 96 94 O2 Delivery Ventilator Mechanical Ventilator Ventilator 11/22/16 11/22/16 09:25 10:00 Pulse 94 Resp 27 B/P (MAP) 128/70 (89) Pulse Ox 99 97 O2 Delivery Ventilator Intake and Output 11/21/16 11/21/16 11/22/16 15:00 23:00 07:00 Intake Total 0 ml 0 ml 490 ml Output Total 1075 ml 500 ml 1580 ml Balance -1075 ml -500 ml -1090 ml HEATHER AVILES III DO Nov 22, 2016 11:20
== END 2016-11-22 11:55 | DRG 3 ==
LOC: ER 10:26 → 1 WEST ICU 12:18
PROVIDERS: ADMIT Internal Medicine; ATTEND Internal Medicine
PROC: 5A09357 Assistance with Respiratory Ventilation, Less than 24 Consecutive Hours, Continuous Positive Airway Pressure (ICD-10-PCS; principal; 2016-10-31)
PROC: 0BH17EZ Insertion of Endotracheal Airway into Trachea, Via Natural or Artificial Opening (ICD-10-PCS; 2016-10-31)
PROC: 5A1955Z Respiratory Ventilation, Greater than 96 Consecutive Hours (ICD-10-PCS; 2016-10-31)
PROC: 0BB10ZZ Excision of Trachea, Open Approach (ICD-10-PCS; 2016-10-31)
PROC: 0B110F4 Bypass Trachea to Cutaneous with Tracheostomy Device, Open Approach (ICD-10-PCS; 2016-11-13)
DX: A41.9 Sepsis, unspecified organism (principal); N17.0 Acute kidney failure with tubular necrosis; I50.33 Acute on chronic diastolic (congestive) heart failure; J96.02 Acute respiratory failure with hypercapnia; J18.9 Pneumonia, unspecified organism; J96.01 Acute respiratory failure with hypoxia; E87.0 Hyperosmolality and hypernatremia; I13.0 Hypertensive heart and chronic kidney disease with heart failure and stage 1 through stage 4 chronic kidney disease, or unspecified chronic kidney disease; Z99.11 Dependence on respirator [ventilator] status; M62.82 Rhabdomyolysis; N39.0 Urinary tract infection, site not specified; J44.0 Chronic obstructive pulmonary disease with (acute) lower respiratory infection; E44.0 Moderate protein-calorie malnutrition; Z68.42 Body mass index [BMI] 45.0-49.9, adult; F17.210 Nicotine dependence, cigarettes, uncomplicated; E66.01 Morbid (severe) obesity due to excess calories; Y95 Nosocomial condition; K21.9 Gastro-esophageal reflux disease without esophagitis; T78.3XXA Angioneurotic edema, initial encounter; E83.39 Other disorders of phosphorus metabolism; F20.9 Schizophrenia, unspecified; N18.9 Chronic kidney disease, unspecified; J38.4 Edema of larynx; B96.5 Pseudomonas (aeruginosa) (mallei) (pseudomallei) as the cause of diseases classified elsewhere; B96.1 Klebsiella pneumoniae [K. pneumoniae] as the cause of diseases classified elsewhere; E04.9 Nontoxic goiter, unspecified; F32.9 Major depressive disorder, single episode, unspecified; K59.00 Constipation, unspecified; M19.90 Unspecified osteoarthritis, unspecified site; Z51.5 Encounter for palliative care; Z79.899 Other long term (current) drug therapy; Z82.49 Family history of ischemic heart disease and other diseases of the circulatory system; Z79.1 Long term (current) use of non-steroidal anti-inflammatories (NSAID); Z88.8 Allergy status to other drugs, medicaments and biological substances; Z59.0 Homelessness; Z79.2 Long term (current) use of antibiotics
CPT/HCPCS: 36415; 36600; 51702; 71010; 74000; 74176; 80048; 80053; 80061; 80069; 80076; 80202; 81001; 82550; 82553; 82805; 82962; 83605; 83690; 83735; 83874; 83880; 84100; 84443; 84484; 85027; 85610; 85730; 86850; 86900; 86901; 87040; 87070; 87086; 87186; 87205; 87324; 87420; 87641; 87804; 93005; 93306; 94002; 94003; 94640; 94660; 96365; 96375; G0481; J0330; J0360; J1200; J1940; J1956; J2020; J2250; J2270; J2405; J2543; J2704; J2765; J2920; J2930; J2997; J3010; J3370; J3480; J7030; J7040; J7512; J7620; S0028; 97110; 97116; 97530; 97535; 99285-25

== ENCOUNTER 2021-05-24 02:20 | Inpatient (IN) | payer OTHER ==
[~2021-05-24] VITALS: Ht 162.6 cm; Wt 101.1 kg
[2021-05-24] VITALS (17 sets, daily range): BP systolic 101–163; BP diastolic 55–98
[~2021-05-24 02:20] MED LIST: CETI10TA16 PO; CLON0.1T PO; DOCU100C28 PO; FAMO20TA5 PO; FLUO40CA2 PO; FOLI1TAB16 PO; FURO-68 PO; HYDR-2145 PO; IPRA3AMP29 NEB; LORA1TAB PO; LOSA-73 PO; MELO15TA23 PO; MONT10TA49 PO; OLAN20TA15 PO; POLY255P11 PO; TRAZ-123 PO
[2021-05-24 02:53] LABS: BASO # 0.1 x10^3/uL (0.0-0.2); BASO % 1 % (0-3); EOS # 0.2 x10^3/uL (0.0-0.7); EOS % 2 % (0-3); HEMOGLOBIN 11.4 g/dL (12.0-15.5); LYMPH # 5.1 x10^3/uL (1.0-4.8); LYMPH % 51 % (24-48); MEAN CORPUSCULAR HEMOGLOBIN 30 pg (25-35); MEAN CORPUSCULAR HGB CONC 31 g/dL (31-37); MEAN CORPUSCULAR VOLUME 96 fL (79-100); MONO % 10 % (0-9); NEUT # 3.8 x10^3/uL (1.8-7.7); NEUT % 38 % (31-73); PLATELET COUNT 199 x10^3/uL (140-400); RED BLOOD COUNT 3.85 x10^6/uL (3.50-5.40); RED CELL DISTRIBUTION WIDTH 14.7 % (11.5-14.5); WHITE BLOOD COUNT 10.2 x10^3/uL (4.0-11.0)
[2021-05-24 03:02] LABS: CALCIUM 8.6 mg/dL (8.5-10.1); CREATININE 0.6 mg/dL (0.6-1.0); GFR 120.7
[2021-05-24 03:13] LABS: ALBUMIN 2.9 g/dL (3.4-5.0); ALBUMIN/GLOBULIN RATIO 0.7 (1.0-1.7); MAGNESIUM 1.7 mg/dL (1.8-2.4); PHOSPHORUS 4.6 mg/dL (2.6-4.7); TOTAL BILIRUBIN 0.2 mg/dL (0.2-1.0); TOTAL PROTEIN 7.2 g/dL (6.4-8.2)
--- NOTE | 2021-05-24 03:23 | RAD ---
CT Head W/O Contrast: History: Pain status post fall Comparison: none Axial images were obtained without contrast. There is moderate diffuse atrophy. There is no mass effect, extraaxial fluid collections or hydrocep halus. There is no focal loss of herman-white matter distinction to suggest acute ischemia, i.e. stroke. Impression: No acute findings. IMPRESSION: CT C-Spine without contrast: Clinical History: Reason: fall / Spl. Instructions: / History: Technique: Axial helical images of the cervical spine were obtained without contrast, axial coronal and sagittal reconstruction was performed. Findings: There is no loss of vertebral body stature. There is no prevertebral soft tissue swelling. The vert ebral bodies are well aligned. There is straightening of the normal cervical lordosis which can be p ositional or could be chronic. The C1-C2 relationship is normal. The visualized osseous structures ap pear normal. Evaluation of the central canal is limited without contrast. There is multiple posterio r disc bulges resulting in flattening of the thecal sac. There does not appear to be gross flattening of the cervical cord. There is moderate narrowing of multiple neuroforamen. Impression: No acute findings. Clinical correlation suggested. PQRS Compliance Statement: One or more of the following individualized dose reduction techniques were utilized for this examinat ion: 1. Automated exposure control 2. Adjustment of the mA and/or kV according to patient size 3. Use of iterative reconstruction technique Electronically signed by: Thaddeus Sarabia III, MD (05/24/2021 3:21 AM) [facility]
--- NOTE | 2021-05-24 03:25 | ED.ADGEN ---
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 Patient is complaining of pain on her left hip. Patient is unsure how long she was on the ground. Last seen by staff at 9 PM. Patient is not on blood thinners. Patient is alert to person place and situation but a little groggy, no slurred speech. Is answering questions appropriately. History provided by nursing facility staff. Per nursing facility patient has had about 3 falls that were unwitnessed in the past 3 weeks. Review of Systems: Review of Systems: All other systems within normal limits except for as noted in the HPI Current Medications: Current Medications Medications (Trade) Dose Ordered Sig/Cornel Start Time Stop Time Status Last Admin Dose Admin Acetaminophen (Tylenol) 650 mg PRN Q4HRS PRN 05/24/21 05:45 05/25/21 05:44 UNV Fentanyl Citrate (Fentanyl 2ml Vial) 50 mcg PRN Q1HR PRN 05/24/21 05:45 05/25/21 05:44 UNV Ondansetron HCl (Zofran) 4 mg PRN Q8HRS PRN 05/24/21 05:45 05/25/21 05:44 UNV Allergies: Allergies: Allergies Coded Allergies Type Severity Reaction Last Updated Verified haloperidol Allergy Intermediate 11/01/16 Yes tetanus immune globulin Allergy Intermediate 11/01/16 Yes Physical Exam: PE: Constitutional: Well developed, well nourished, no acute distress, non-toxic appearance. [] HENT: Normocephalic, atraumatic, bilateral external ears normal, nose normal. [] Eyes: PERRLA, conjunctiva normal, no discharge. [] Neck: No rigidity, supple, no stridor. [] Cardiovascular: Regular rate and rhythm, brisk cap refill [] Lungs & Thorax: Non labored symmetric respirations, no tachypnea or respiratory distress [] Abdomen: Soft, nondistended. Skin: Warm, dry, no erythema, no rash. [] Back: Unremarkable Extremities: No deformities, range of motion grossly intact, no lower extremity edema [] Neurologic: Alert and oriented X 3, no focal deficits noted. [] Psychologic: Affect normal, judgement normal, mood normal. [] Current Patient Data: Labs: Laboratory Tests Test 05/24/21 02:42 05/24/21 04:18 05/24/21 04:30 05/24/21 04:35 White Blood Count 10.2 x10^3/uL (4.0-11.0) Red Blood Count 3.85 x10^6/uL (3.50-5.40) Hemoglobin 11.4 g/dL (12.0-15.5) L Hematocrit 37.0 % (36.0-47.0) Mean Corpuscular Volume 96 fL (79-100) Mean Corpuscular Hemoglobin 30 pg (25-35) Mean Corpuscular Hemoglobin Concent 31 g/dL (31-37) Red Cell Distribution Width 14.7 % (11.5-14.5) H Platelet Count 199 x10^3/uL (140-400) Neutrophils (%) (Auto) 38 % (31-73) Lymphocytes (%) (Auto) 51 % (24-48) H Monocytes (%) (Auto) 10 % (0-9) H Eosinophils (%) (Auto) 2 % (0-3) Basophils (%) (Auto) 1 % (0-3) Neutrophils # (Auto) 3.8 x10^3/uL (1.8-7.7) Lymphocytes # (Auto) 5.1 x10^3/uL (1.0-4.8) H Monocytes # (Auto) 1.0 x10^3/uL (0.0-1.1) Eosinophils # (Auto) 0.2 x10^3/uL (0.0-0.7) Basophils # (Auto) 0.1 x10^3/uL (0.0-0.2) Sodium Level 142 mmol/L (136-145) Potassium Level 4.0 mmol/L (3.5-5.1) Chloride Level 102 mmol/L (98-107) Carbon Dioxide Level 33 mmol/L (21-32) H Anion Gap 7 (6-14) Blood Urea Nitrogen 14 mg/dL (7-20) Creatinine 0.6 mg/dL (0.6-1.0) Estimated GFR (Cockcroft-Gault) 120.7 BUN/Creatinine Ratio 23 (6-20) H Glucose Level 98 mg/dL (70-99) Calcium Level 8.6 mg/dL (8.5-10.1) Phosphorus Level 4.6 mg/dL (2.6-4.7) Magnesium Level 1.7 mg/dL (1.8-2.4) L Total Bilirubin 0.2 mg/dL (0.2-1.0) Aspartate Amino Transferase (AST) 22 U/L (15-37) Alanine Aminotransferase (ALT) 15 U/L (14-59) Alkaline Phosphatase 78 U/L (46-116) Creatine Kinase 105 U/L (26-192) Myoglobin 27 ng/mL (9-82) Troponin I High Sensitivity 8 ng/L (4-50) ZF-Kau-J-Type Natriuretic Peptide 20 pg/mL (0-124) Total Protein 7.2 g/dL (6.4-8.2) Albumin 2.9 g/dL (3.4-5.0) L Albumin/Globulin Ratio 0.7 (1.0-1.7) L Influenza Type A Antigen Negative (NEGATIVE) Influenza Type B Antigen Negative (NEGATIVE) SARS-CoV-2 Antigen (Rapid) Negative (NEGATIVE) O2 Saturation 93 % (92-99) Arterial Blood pH 7.26 (7.35-7.45) L Arterial Blood pCO2 at Patient Temp 83 mmHg (35-46) *H Arterial Blood pO2 at Patient Temp 78 mmHg (65-108) Arterial Blood HCO3 36 mmol/L (21-28) H Arterial Blood Base Excess 6 mmol/L (-3-3) H FiO2 Urine Collection Type U cath Urine Color Yellow Urine Clarity Clear Urine pH 6.0 (<5.0-8.0) Urine Specific [place] 1.015 (1.000-1.030) Urine Protein Negative mg/dL (NEG-TRACE) Urine Glucose (UA) Negative mg/dL (NEG) Urine Ketones (Stick) Negative mg/dL (NEG) Urine Blood Negative (NEG) Urine Nitrite Negative (NEG) Urine Bilirubin Negative (NEG) Urine Urobilinogen Dipstick 1.0 mg/dL (0.2 mg/dL) Urine Leukocyte Esterase Negative (NEG) Urine RBC Occ /HPF (0-2) Urine WBC 0 /HPF (0-4) Urine Squamous Epithelial Cells Few /LPF Urine Bacteria 0 /HPF (0-FEW) Urine Mucus Slight /LPF Laboratory Tests 05/24/21 02:42 Laboratory Tests 05/24/21 02:42 Vital Signs: Vital Signs Date Time Temp Pulse Resp B/P (MAP) Pulse Ox O2 Delivery O2 Flow Rate FiO2 05/24/21 04:25 92 26 159/92 (114) 93 Nasal Cannula 5.0 05/24/21 02:20 97.4 97.4 EKG: EKG: Sinus rhythm, heart rate 90 beats minute, normal axis, no ST elevation or depression, normal intervals, no ectopy. [] Heart Score: C/O Chest Pain: No Risk Factors: Risk Factors: DM, Current or recent (<one month) smoker, HTN, HLP, family history of CAD, obesity. Risk Scores: Score 0 - 3: 2.5% MACE over next 6 weeks - Discharge Home Score 4 - 6: 20.3% MACE over next 6 weeks - Admit for Clinical Observation Score 7 - 10: 72.7% MACE over next 6 weeks - Early Invasive Strategies Radiology/Procedures: Radiology/Procedures: [address] [id number] IMAGING REPORT Signed PATIENT: KY ROJAS ACCOUNT: [id number] : 1955 LOCATION: ER AGE: 65 SEX: F EXAM STATUS: REG ER ORD. PHYSICIAN: RUCHI OJEDA MD REASON: fall PROCEDURE: HIP LEFT 1 VIEW WITH PELVIS 1 view pelvis and left hip HISTORY: Pain status post fall AP view the pelvis obtained as well as an AP view left hip The femoral acetabular relationship is normal in the single view. The study is slightly underpenetrated secondary to large body habitus. Visualized osseous structures appear grossly intact. IMPRESSION: No acute findings. Electronically signed by: Jess Carbajal III, MD (05/24/2021 4:08 AM) [facility] DICTATED and SIGNED BY: JESS CARBAJAL III, MD DATE: 05/24/21 [id number] [] [address] [address] IMAGING REPORT Signed PATIENT: KY ROJAS ACCOUNT: [id number] : 1955 LOCATION: ER AGE: 65 SEX: F EXAM STATUS: REG ER ORD. PHYSICIAN: RUCHI OJEDA MD REASON: fall PROCEDURE: CT HEAD AND CERVICAL SPINE WO CT Head W/O Contrast: History: Pain status post fall Comparison: none Axial images were obtained without contrast. There is moderate diffuse atrophy. There is no mass effect, extraaxial fluid collections or hydrocephalus. There is no focal loss of herman-white matter distinction to suggest acute ischemia, i.e. stroke. Impression: No acute findings. IMPRESSION: CT C-Spine without contrast: Clinical History: Reason: fall / Spl. Instructions: / History: Technique: Axial helical images of the cervical spine were obtained without contrast, axial coronal and sagittal reconstruction was performed. Findings: There is no loss of vertebral body stature. There is no prevertebral soft tissue swelling. The vertebral bodies are well aligned. There is straightening of the normal cervical lordosis which can be positional or could be chronic. The C1-C2 relationship is normal. The visualized osseous structures appear normal. Evaluation of the central canal is limited without contrast. There is multiple posterior disc bulges resulting in flattening of the thecal sac. There does not appear to be gross flattening of the cervical cord. There is moderate narrowing of multiple neuroforamen. Impression: No acute findings. Clinical correlation suggested. PQRS Compliance Statement: One or more of the following individualized dose reduction techniques were utilized for this examination: 1. Automated exposure control 2. Adjustment of the mA and/or kV according to patient size 3. Use of iterative reconstruction technique Electronically signed by: Jess Carbajal III, MD (05/24/2021 3:21 AM) [facility] DICTATED and SIGNED BY: JESS CARBAJAL III, MD DATE: 05/24/21 [id number] [facility] [address] [place] [address] IMAGING REPORT Signed PATIENT: KY ROJAS ACCOUNT: [id number] : 1955 LOCATION: ER AGE: 65 SEX: F EXAM STATUS: REG ER ORD. PHYSICIAN: RUCHI OJEDA MD REASON: fall PROCEDURE: CHEST AP ONLY XR CHEST 1V Clinical History: Reason: fall / Spl. Instructions: / History: Technique: AP view of the chest was obtained at 05/24/2021 2:41 AM. Comparison: None. Findings: The cardiomediastinal silhouette is normal. The pulmonary vasculature is normal. The lungs and pleural margins are clear. There is low lung volumes. The study is somewhat underpenetrated secondary to large body habitus. Impression: No evidence of an acute cardiopulmonary process. Electronically signed by: Jess Carbajal III, MD (05/24/2021 3:38 AM) [facility] DICTATED and SIGNED BY: JESS CARBAJAL III, MD DATE: 05/24/21 [id number] Course & Med Decision Making: Course & Med Decision Making Pertinent Labs and Imaging studies reviewed. (See chart for details) Placed on bipap for hypercapnea and admitted [] Dragon Disclaimer: Dragon Disclaimer: This electronic medical record was generated, in whole or in part, using a voice recognition dictation system. Departure Departure Impression: Primary Impression: Fall Additional Impressions: Respiratory failure Hypercapnemia Disposition: ADMITTED INPATIENT Admitting Physician: TAMIKO Condition: GUARDED Referrals: MICHAEL MONTENEGRO (PCP) Problem Qualifiers RUCHI OJEDA MD May 24, 2021 03:25
--- NOTE | 2021-05-24 03:41 | RAD ---
XR CHEST 1V Clinical History: Reason: fall / Spl. Instructions: / History: Technique: AP view of the chest was obtained at 05/24/2021 2:41 AM. Comparison: None. Findings: The cardiomediastinal silhouette is normal. The pulmonary vasculature is normal. The lungs and pleura l margins are clear. There is low lung volumes. The study is somewhat underpenetrated secondary to la rge body habitus. Impression: No evidence of an acute cardiopulmonary process. Electronically signed by: Thaddeus Sarabia III, MD (05/24/2021 3:38 AM) [facility]
--- NOTE | 2021-05-24 04:10 | RAD ---
1 view pelvis and left hip HISTORY: Pain status post fall AP view the pelvis obtained as well as an AP view left hip The femoral acetabular relationship is normal in the single view. The study is slightly underpenetrat ed secondary to large body habitus. Visualized osseous structures appear grossly intact. IMPRESSION: No acute findings. Electronically signed by: Thaddeus Sarabia III, MD (05/24/2021 4:08 AM) [facility]
[2021-05-24 04:41] LABS: BILIRUBIN,URINE NEGATIVE (NEG); CLARITY,URINE CLEAR; COLOR,URINE YELLOW; NITRITE,URINE NEGATIVE (NEG); PROTEIN,URINE NEGATIVE (NEG-TRACE)
[2021-05-24 04:48] LABS: BACTERIA,URINE 0 /HPF (0-FEW); RBC,URINE OCC /HPF (0-2); WBC,URINE 0 /HPF (0-4)
[2021-05-24 04:52] LABS: INFLUENZA A PATIENT NEGATIVE (NEGATIVE); INFLUENZA B PATIENT NEGATIVE (NEGATIVE)
[2021-05-24 05:34] LABS: BASE EXCESS ABG 6 mmol/L (-3-3); HCO3 ABG 36 mmol/L (21-28); PCO2 ABG 83 mmHg (35-46); PO2 ABG 78 mmHg (65-108); SAT O2 ABG 93 % (92-99)
[2021-05-24] MEDS ORDERED: ACETAMINOPHEN 325 MG TABLET. PO PRN ×2 (05:45→09:15)
[2021-05-24] MEDS ORDERED: ONDANSETRON PF 4 MG/2 ML VIAL. IVP PRN ×2 (05:45→09:15)
[2021-05-24] MEDS ORDERED: fentaNYL PF VIAL 100 MCG/2 ML VIAL IVP PRN (05:45)
--- NOTE | 2021-05-24 06:06 | EKG ---
[facility] [address] [place] [address] Test Date: 2021-05-24 Test Time: 03:04:41 Pat Name: KY ROJAS Department: Room: Gender: F Welt Slasher: : 1955 Requested By: RUCHI OJEDA Order Number: [id number] Reading MD: Measurements Intervals [place] Rate: 90 P: 44 CT: 146 QRS: 26 QRSD: 76 T: 26 QT: 356 QTc: 440 Interpretive Statements SINUS RHYTHM LOW LIMB LEAD VOLTAGE NO SPECIFIC ECG ABNORMALITIES RI6.02 No previous ECG available for comparison
[2021-05-24] MEDS ORDERED: MAGNESIUM SULFATE 2GM 50 ML IV ONE (07:30)
[2021-05-24] MEDS ORDERED: ESCITALOPRAM OX10 MG PO (08:09)
[2021-05-24] MEDS ORDERED: METF500T16 PO (08:09)
[2021-05-24] MEDS ORDERED: IPRA4AER IH (08:09)
[2021-05-24] MEDS ORDERED: ATOR20TA58 PO (08:09)
[2021-05-24] MEDS ORDERED: QUET200T4 PO (08:09)
[2021-05-24] MEDS ORDERED: OMEP20TA63 PO (08:09)
[2021-05-24] MEDS ORDERED: MAG-115 PO (08:09)
[2021-05-24] MEDS ORDERED: DIVA500T17 PO (08:09)
[2021-05-24] MEDS ORDERED: CLON-77 PO (08:09)
[2021-05-24] MEDS ORDERED: ACET500T68 PO (08:09)
[2021-05-24] MEDS ORDERED: ACETAMINOPHEN 500 MG TABLET PO PRN (08:15)
[2021-05-24] MEDS ORDERED: MAG HYDROX/ALUMINUM HYD/SIMETH 30 ML ORAL.SUSP PO PRN (08:15)
--- NOTE | 2021-05-24 08:30 | NUR ---
[id number] Care assumed from CHRIS BurnettRN w completion of admission assessment. Phone communication w Dr Andrade. Mag replacement , Dr Maria consulted.
[2021-05-24 08:55] LABS: BASE EXCESS ABG 5 mmol/L (-3-3); HCO3 ABG 32 mmol/L (21-28); PCO2 ABG 59 mmHg (35-46); PO2 ABG 64 mmHg (65-108); SAT O2 ABG 89 % (92-99)
[2021-05-24 08:58] LABS: FIO2 ABG 40% 18/6 16
[2021-05-24] MEDS ORDERED: NON FORMULARY ITEM (Ipratropium/Albuterol Sulfate (Combivent Respimat Inhal) 2 INH) IH SCH (09:00)
[2021-05-24] MEDS: metFORMIN 500 MG TABLET PO SCH ×2 (09:00→17:00)
[2021-05-24] MEDS: POLYETHYLENE GLYCOL 3350 17 GM PACKET. PO SCH (09:00)
[2021-05-24] MEDS: cloNIDine HCL 0.1 MG TABLET PO SCH ×4 (09:00→22:28)
[2021-05-24] MEDS ORDERED: CALCIUM CARBONATE 500 MG TAB.CHEW PO PRN (09:15)
[2021-05-24] MEDS ORDERED: 0.9 % SODIUM CHLORIDE 10 ML DISP.SYRIN. IV PRN (09:15)
--- NOTE | 2021-05-24 09:25 | PDOC1 ---
History and Physical Date of Service: DOS: DATE: 05/24/21 TIME: 09:24 Chief Complaint: Chief Complain: found down History of Present Illness: HPI: Patient is a 65-year-old -[place] female presented to the emergency room overnight after being found down on the ground at her nursing facility. Patient reports to me that she frequently rolls out of her bed at night ending up on the floor. She is normally able to get up by herself back to bed but last night felt a pain in her hip and was unable to get up or call for help. Eventually was found down by staff. Reports that she has had multiple falls over the past few weeks for rolling of the bed. Saw the patient she was resting in bed had just come off bipap. Somewhat difficult to understand. Past Medical/Surgical History: PMH/PSH: Past Medical History: CHF, Constipation, Depression, GERD, HypertensionN Smoking Status: Never Smoker Alcohol Use: None Drug Use: None Allergies: Allergies: Coded Allergies: haloperidol (Verified Allergy, Intermediate, 11/01/16) tetanus immune globulin (Verified Allergy, Intermediate, 11/01/16) Family History: Family History: Htn Current Medications: Current Medications Current Medications Ondansetron HCl (Zofran) 4 mg PRN Q8HRS PRN IVP NAUSEA/VOMITING; Start 05/24/21 at 05:45; Stop 05/25/21 at 05:44; Status Cancel Fentanyl Citrate (Fentanyl 2ml Vial) 50 mcg PRN Q1HR PRN IVP PAIN; Start 05/24/21 at 05:45; Stop 05/25/21 at 05:44 Acetaminophen (Tylenol) 650 mg PRN Q4HRS PRN PO FEVER > 100.3'F; Start 05/24/21 at 05:45; Stop 05/25/21 at 05:44; Status Cancel Lorazepam (Ativan Inj) 1 mg PRN Q2HR PRN IVP ANXIETY / AGITATION; Start 05/24/21 at 06:15 Magnesium Sulfate 50 ml @ 25 mls/hr 1X ONCE IV ; Start 05/24/21 at 07:30; Stop 05/24/21 at 09:29 Acetaminophen (Tylenol) 500 mg PRN TID PRN PO PAIN; Start 05/24/21 at 08:15 Atorvastatin Calcium (Lipitor) 20 mg DAILY PO ; Start 05/24/21 at 09:00 Clonazepam (KlonoPIN) 0.5 mg BID PO ; Start 05/24/21 at 09:00 Clonidine HCl (Catapres) 0.1 mg QID PO ; Start 05/24/21 at 09:00 Divalproex Sodium (Depakote Er) 1,500 mg QHS PO ; Start 05/24/21 at 21:00 Albuterol/ Ipratropium (Duoneb) 3 ml RTQID NEB ; Start 05/24/21 at 12:00 Al Hydroxide/Mg Hydroxide (Mylanta Plus Xs) 355 ml PRN Q4HRS PRN PO GI SYMPTOMS; Start 05/24/21 at 08:15 Metformin HCl (Glucophage) 500 mg BIDWMEALS PO ; Start 05/24/21 at 09:00 Polyethylene Glycol (miraLAX PACKET) 17 gm DAILY PO ; Start 05/24/21 at 09:00 Citalopram Hydrobromide (CeleXA) 40 mg DAILY PO ; Start 05/24/21 at 09:00 Non-Formulary Medication (Ipratropium/ Albuterol Sulfate (Combivent Respimat Inhal)) 2 inh QID IH ; Start 05/24/21 at 09:00; Status UNV Pantoprazole Sodium (Protonix) 40 mg DAILYAC PO ; Start 05/24/21 at 08:30 Quetiapine Fumarate (SEROquel) 400 mg QHS PO ; Start 05/24/21 at 21:00 Acetaminophen (Tylenol) 650 mg PRN Q6HRS PRN PO Headaches, Temp > 101.5'; Start 05/24/21 at 09:15 Ondansetron HCl (Zofran) 4 mg PRN Q6HRS PRN IVP NAUSEA/VOMITING; Start 05/24/21 at 09:15 Calcium Carbonate/ Glycine (Tums) 500 mg PRN Q3HRS PRN PO HEARTBURN / GAS; Start 05/24/21 at 09:15 Heparin Sodium (Porcine) (Heparin Sodium) 5,000 unit Q8HRS SQ ; Start 05/24/21 at 14:00 Sodium Chloride (Normal Saline Flush) 3 ml QSHIFT PRN IV AFTER MEDS AND BLOOD DRAWS; Start 05/24/21 at 09:15 Methylprednisolone Sodium Succinate (SOLU-Medrol 125MG VIAL) 125 mg 1X ONCE IV ; Start 05/24/21 at 09:30; Stop 05/24/21 at 09:31 Active Scripts Active Reported Seroquel (Quetiapine Fumarate) 200 Mg Tablet 2 Tab PO QHS Prilosec Otc (Omeprazole Magnesium) 20 Mg Tablet.dr 1 Tab PO DAILY 30 Days Mylanta Maximum Strength Liq (Mag Hydrox/Aluminum Hyd/Simeth) 355 Ml Oral.susp 355 Ml PO PRN Q4HRS PRN Metformin Hcl 500 Mg Tablet 500 Mg PO BIDWMEALS Escitalopram Oxalate 10 Mg Tablet 2 Tab PO DAILY Combivent Respimat Inhal (Ipratropium/Albuterol Sulfate) 4 Gm Aer.w.adap 2 Inh IH QID Divalproex Sodium Er (Divalproex Sodium) 500 Mg Tab.er.24h 3 Tab PO QHS Clonazepam (Clonazepam) 0.5 Mg Tablet 0.5 Mg PO BID Atorvastatin Calcium 20 Mg Tablet 1 Tab PO DAILY Acetaminophen 500 Mg Tablet 1 Tab PO PRN TID PRN 15 Days Polyethylene Glycol 3350 255 Gm Powder 17 Gm PO DAILY Duoneb 0.5-3(2.5) Mg/3 Ml (Albuterol/Ipratropium) 3 Ml Ampul.neb 3 Ml NEB QID Clonidine Hcl 0.1 Mg Tablet 0.1 Mg PO QID ROS: Review of Systems Review of System Unless noted in HPI 14 point review of systems was negative Physical Exam: Vital Signs: Vital Signs Date Time Temp Pulse Resp B/P (MAP) Pulse Ox O2 Delivery O2 Flow Rate FiO2 05/24/21 07:44 Bi-pap 05/24/21 07:00 98.0 81 21 101/70 (80) 90 98.0 05/24/21 04:30 6.0 Physcial Exam: GEN: No apparent distress. Alert and oriented HEENT: Normal cephalic, atraumatic, external auditory canals are patent EYES: Extraocular muscles are intact, pupil are equally round and reactive to light and accommodation MUSCULOSKELETAL: Well developed , well nourished, good range of motion ENDOCRINE: No thyromegaly was palpated LYMPHATICS: No cervical chain or axillary nodes were noted HEMATOPOIETIC: No bruising NECK: Supple, no JVD, no thyromegaly was noted LUNGS: Clear to auscultation in all lung billy without rhonchi or wheezing HEART: RRR, S!, S2 present. Peripheral pulses intact, no obvious murmurs noted ABDOMEN: Soft, nontender. Positive bowel sounds, no organomegaly, normal bowel sounds EXTREMITIES: Without clubbing, cyanosis, or edema. Pedal pulses intact. Negative Homans sign NEUROLOGIC: Normal speech and tone. A&O x 3, moves all extremities, no obvious focal deficits PSYCHIATRIC: Normal affect, normal mood. Stable SKIN: No ulcerations or rashes, good skin turgor, no jaundice VASCULAR: Good capillary refill, neurovascular bundle appears to be intact Labs: Labs: Laboratory Tests Test 05/24/21 02:42 05/24/21 04:18 05/24/21 04:30 05/24/21 04:35 White Blood Count 10.2 x10^3/uL (4.0-11.0) Red Blood Count 3.85 x10^6/uL (3.50-5.40) Hemoglobin 11.4 g/dL (12.0-15.5) Hematocrit 37.0 % (36.0-47.0) Mean Corpuscular Volume 96 fL (79-100) Mean Corpuscular Hemoglobin 30 pg (25-35) Mean Corpuscular Hemoglobin Concent 31 g/dL (31-37) Red Cell Distribution Width 14.7 % (11.5-14.5) Platelet Count 199 x10^3/uL (140-400) Neutrophils (%) (Auto) 38 % (31-73) Lymphocytes (%) (Auto) 51 % (24-48) Monocytes (%) (Auto) 10 % (0-9) Eosinophils (%) (Auto) 2 % (0-3) Basophils (%) (Auto) 1 % (0-3) Neutrophils # (Auto) 3.8 x10^3/uL (1.8-7.7) Lymphocytes # (Auto) 5.1 x10^3/uL (1.0-4.8) Monocytes # (Auto) 1.0 x10^3/uL (0.0-1.1) Eosinophils # (Auto) 0.2 x10^3/uL (0.0-0.7) Basophils # (Auto) 0.1 x10^3/uL (0.0-0.2) Sodium Level 142 mmol/L (136-145) Potassium Level 4.0 mmol/L (3.5-5.1) Chloride Level 102 mmol/L (98-107) Carbon Dioxide Level 33 mmol/L (21-32) Anion Gap 7 (6-14) Blood Urea Nitrogen 14 mg/dL (7-20) Creatinine 0.6 mg/dL (0.6-1.0) Estimated GFR (Cockcroft-Gault) 120.7 BUN/Creatinine Ratio 23 (6-20) Glucose Level 98 mg/dL (70-99) Calcium Level 8.6 mg/dL (8.5-10.1) Phosphorus Level 4.6 mg/dL (2.6-4.7) Magnesium Level 1.7 mg/dL (1.8-2.4) Total Bilirubin 0.2 mg/dL (0.2-1.0) Aspartate Amino Transf (AST/SGOT) 22 U/L (15-37) Alanine Aminotransferase (ALT/SGPT) 15 U/L (14-59) Alkaline Phosphatase 78 U/L (46-116) Creatine Kinase 105 U/L (26-192) Myoglobin 27 ng/mL (9-82) Troponin I High Sensitivity 8 ng/L (4-50) DL-Los-G-Type Natriuretic Peptide 20 pg/mL (0-124) Total Protein 7.2 g/dL (6.4-8.2) Albumin 2.9 g/dL (3.4-5.0) Albumin/Globulin Ratio 0.7 (1.0-1.7) Influenza Type A Antigen Negative (NEGATIVE) Influenza Type B Antigen Negative (NEGATIVE) SARS-CoV-2 RNA (VAZQUEZ) Negative (Negative) SARS-CoV-2 Antigen (Rapid) Negative (NEGATIVE) O2 Saturation 93 % (92-99) Arterial Blood pH 7.26 (7.35-7.45) Arterial Blood pCO2 at Patient Temp 83 mmHg (35-46) Arterial Blood pO2 at Patient Temp 78 mmHg (65-108) Arterial Blood HCO3 36 mmol/L (21-28) Arterial Blood Base Excess 6 mmol/L (-3-3) FiO2 Urine Collection Type U cath Urine Color Yellow Urine Clarity Clear Urine pH 6.0 (<5.0-8.0) Urine Specific [place] 1.015 (1.000-1.030) Urine Protein Negative mg/dL (NEG-TRACE) Urine Glucose (UA) Negative mg/dL (NEG) Urine Ketones (Stick) Negative mg/dL (NEG) Urine Blood Negative (NEG) Urine Nitrite Negative (NEG) Urine Bilirubin Negative (NEG) Urine Urobilinogen Dipstick 1.0 mg/dL (0.2 mg/dL) Urine Leukocyte Esterase Negative (NEG) Urine RBC Occ /HPF (0-2) Urine WBC 0 /HPF (0-4) Urine Squamous Epithelial Cells Few /LPF Urine Bacteria 0 /HPF (0-FEW) Urine Mucus Slight /LPF Test 05/24/21 05:40 05/24/21 07:30 05/24/21 07:50 Lactic Acid Level 2.1 mmol/L (0.4-2.0) O2 Saturation 89 % (92-99) Arterial Blood pH 7.35 (7.35-7.45) Arterial Blood pCO2 at Patient Temp 59 mmHg (35-46) Arterial Blood pO2 at Patient Temp 64 mmHg (65-108) Arterial Blood HCO3 32 mmol/L (21-28) Arterial Blood Base Excess 5 mmol/L (-3-3) FiO2 40% 01/10 16 Troponin I High Sensitivity 8 ng/L (4-50) Laboratory Tests Test 05/24/21 02:42 05/24/21 04:18 05/24/21 04:30 05/24/21 04:35 White Blood Count 10.2 x10^3/uL (4.0-11.0) Red Blood Count 3.85 x10^6/uL (3.50-5.40) Hemoglobin 11.4 g/dL (12.0-15.5) Hematocrit 37.0 % (36.0-47.0) Mean Corpuscular Volume 96 fL (79-100) Mean Corpuscular Hemoglobin 30 pg (25-35) Mean Corpuscular Hemoglobin Concent 31 g/dL (31-37) Red Cell Distribution Width 14.7 % (11.5-14.5) Platelet Count 199 x10^3/uL (140-400) Neutrophils (%) (Auto) 38 % (31-73) Lymphocytes (%) (Auto) 51 % (24-48) Monocytes (%) (Auto) 10 % (0-9) Eosinophils (%) (Auto) 2 % (0-3) Basophils (%) (Auto) 1 % (0-3) Neutrophils # (Auto) 3.8 x10^3/uL (1.8-7.7) Lymphocytes # (Auto) 5.1 x10^3/uL (1.0-4.8) Monocytes # (Auto) 1.0 x10^3/uL (0.0-1.1) Eosinophils # (Auto) 0.2 x10^3/uL (0.0-0.7) Basophils # (Auto) 0.1 x10^3/uL (0.0-0.2) Sodium Level 142 mmol/L (136-145) Potassium Level 4.0 mmol/L (3.5-5.1) Chloride Level 102 mmol/L (98-107) Carbon Dioxide Level 33 mmol/L (21-32) Anion Gap 7 (6-14) Blood Urea Nitrogen 14 mg/dL (7-20) Creatinine 0.6 mg/dL (0.6-1.0) Estimated GFR (Cockcroft-Gault) 120.7 BUN/Creatinine Ratio 23 (6-20) Glucose Level 98 mg/dL (70-99) Calcium Level 8.6 mg/dL (8.5-10.1) Phosphorus Level 4.6 mg/dL (2.6-4.7) Magnesium Level 1.7 mg/dL (1.8-2.4) Total Bilirubin 0.2 mg/dL (0.2-1.0) Aspartate Amino Transf (AST/SGOT) 22 U/L (15-37) Alanine Aminotransferase (ALT/SGPT) 15 U/L (14-59) Alkaline Phosphatase 78 U/L (46-116) Creatine Kinase 105 U/L (26-192) Myoglobin 27 ng/mL (9-82) Troponin I High Sensitivity 8 ng/L (4-50) LQ-Tcx-S-Type Natriuretic Peptide 20 pg/mL (0-124) Total Protein 7.2 g/dL (6.4-8.2) Albumin 2.9 g/dL (3.4-5.0) Albumin/Globulin Ratio 0.7 (1.0-1.7) Influenza Type A Antigen Negative (NEGATIVE) Influenza Type B Antigen Negative (NEGATIVE) SARS-CoV-2 RNA (VAZQUEZ) Negative (Negative) SARS-CoV-2 Antigen (Rapid) Negative (NEGATIVE) O2 Saturation 93 % (92-99) Arterial Blood pH 7.26 (7.35-7.45) Arterial Blood pCO2 at Patient Temp 83 mmHg (35-46) Arterial Blood pO2 at Patient Temp 78 mmHg (65-108) Arterial Blood HCO3 36 mmol/L (21-28) Arterial Blood Base Excess 6 mmol/L (-3-3) FiO2 Urine Collection Type U cath Urine Color Yellow Urine Clarity Clear Urine pH 6.0 (<5.0-8.0) Urine Specific [place] 1.015 (1.000-1.030) Urine Protein Negative mg/dL (NEG-TRACE) Urine Glucose (UA) Negative mg/dL (NEG) Urine Ketones (Stick) Negative mg/dL (NEG) Urine Blood Negative (NEG) Urine Nitrite Negative (NEG) Urine Bilirubin Negative (NEG) Urine Urobilinogen Dipstick 1.0 mg/dL (0.2 mg/dL) Urine Leukocyte Esterase Negative (NEG) Urine RBC Occ /HPF (0-2) Urine WBC 0 /HPF (0-4) Urine Squamous Epithelial Cells Few /LPF Urine Bacteria 0 /HPF (0-FEW) Urine Mucus Slight /LPF Test 05/24/21 05:40 05/24/21 07:30 05/24/21 07:50 Lactic Acid Level 2.1 mmol/L (0.4-2.0) O2 Saturation 89 % (92-99) Arterial Blood pH 7.35 (7.35-7.45) Arterial Blood pCO2 at Patient Temp 59 mmHg (35-46) Arterial Blood pO2 at Patient Temp 64 mmHg (65-108) Arterial Blood HCO3 32 mmol/L (21-28) Arterial Blood Base Excess 5 mmol/L (-3-3) FiO2 40% 18/6 16 Troponin I High Sensitivity 8 ng/L (4-50) Assessment/Plan Assessment/Plan Hypercapnic respiratory failure, mechanical fall at home. History of CHF depression GERD hypertension -Presented here after being found down at group home. Patient reports that she frequently rolls out of her bed at night -Notably hypercapnic on presentation. Placed on BiPAP, hypercapnia starting to improve -No apparent fracture seen on imaging of the hip -PT OT -Diet as tolerated -DVT prophylaxis Justifications for Admission Other Justification AUSTIN BABIN MD May 24, 2021 09:25
[2021-05-24] MEDS ORDERED: methylPREDNISolone SOD SUCC PF 125 MG/2 ML VIAL. IV ONE (09:30)
[2021-05-24] MEDS ORDERED: DEXTROSE 50% 25 GM / 50ML DISP.SYRIN. IV PRN (09:30)
[2021-05-24] MEDS ORDERED: IV DEXTROSE 5% 250 ML BAG. IV PRN (09:30)
[2021-05-24] MEDS: IPRATRPIUM/ALBUTEROL 0.5/2.5MG 3 ML NEBU. NEB SCH ×3 (11:54→20:22)
[2021-05-24] MEDS: INSULIN LISPRO 300 UNITS/3 ML VIAL. SQ SCH ×2 (12:00→17:00)
[2021-05-24] MEDS: HEPARIN for SUB-Q USE 5,000 UNIT/ML VIAL. SQ SCH ×2 (14:00→22:30)
--- NOTE | 2021-05-24 15:21 | NUR ---
SS following for discharge planning. SS reviewed pt chart and discussed with pt RN. Pt is LTC resident from [facility], ; fax [phone]. COVID19 negative. Pt is currently on the BIPAP at 45%. PT/OT ordered. SS will continue to follow for discharge planning.
[2021-05-24] MEDS: CITALOPRAM 20 MG TABLET. PO SCH (17:00)
[2021-05-24] MEDS: clonazePAM 0.5 MG TABLET PO SCH ×2 (18:44→22:29)
[2021-05-24] MEDS: ATORVASTATIN CALCIUM 20 MG TABLET PO SCH (18:44)
[2021-05-24] MEDS: PANTOPRAZOLE 40 MG TABLET.DR. PO SCH (18:44)
[2021-05-24] MEDS: QUEtiapine 100 MG TABLET. PO SCH (22:28)
[2021-05-24] MEDS: DIVALPROEX EXTENDED RELEASE 500 MG TAB.ER.24H. PO SCH (22:29)
[2021-05-25] VITALS (16 sets, daily range): BP systolic 108–181; BP diastolic 58–91
[2021-05-25] MEDS: HEPARIN for SUB-Q USE 5,000 UNIT/ML VIAL. SQ SCH ×3 (06:35→21:26)
[2021-05-25 07:48] LABS: BASO # 0.1 x10^3/uL (0.0-0.2); BASO % 1 % (0-3); EOS # 0.2 x10^3/uL (0.0-0.7); EOS % 2 % (0-3); HEMATOCRIT 40.6 % (36.0-47.0); HEMOGLOBIN 12.4 g/dL (12.0-15.5); LYMPH # 3.4 x10^3/uL (1.0-4.8); LYMPH % 37 % (24-48); MEAN CORPUSCULAR HEMOGLOBIN 29 pg (25-35); MEAN CORPUSCULAR HGB CONC 31 g/dL (31-37); MEAN CORPUSCULAR VOLUME 93 fL (79-100); MONO # 0.8 x10^3/uL (0.0-1.1); MONO % 9 % (0-9); NEUT # 4.7 x10^3/uL (1.8-7.7); NEUT % 51 % (31-73); PLATELET COUNT 194 x10^3/uL (140-400); RED BLOOD COUNT 4.35 x10^6/uL (3.50-5.40); WHITE BLOOD COUNT 9.2 x10^3/uL (4.0-11.0)
[2021-05-25] MEDS: INSULIN LISPRO 300 UNITS/3 ML VIAL. SQ SCH ×3 (08:00→17:00)
[2021-05-25 08:30] LABS: ALBUMIN 2.8 g/dL (3.4-5.0); ALBUMIN/GLOBULIN RATIO 0.7 (1.0-1.7); CALCIUM 8.4 mg/dL (8.5-10.1); CREATININE 0.5 mg/dL (0.6-1.0); GFR 148.9; MAGNESIUM 2.2 mg/dL (1.8-2.4); POTASSIUM 3.7 mmol/L (3.5-5.1); TOTAL BILIRUBIN 0.2 mg/dL (0.2-1.0)
[2021-05-25] MEDS: POLYETHYLENE GLYCOL 3350 17 GM PACKET. PO SCH (08:42)
[2021-05-25] MEDS: clonazePAM 0.5 MG TABLET PO SCH ×2 (08:43→21:25)
[2021-05-25] MEDS: PANTOPRAZOLE 40 MG TABLET.DR. PO SCH (08:43)
[2021-05-25] MEDS: CITALOPRAM 20 MG TABLET. PO SCH (08:43)
[2021-05-25] MEDS: metFORMIN 500 MG TABLET PO SCH ×2 (08:43→18:15)
[2021-05-25] MEDS: cloNIDine HCL 0.1 MG TABLET PO SCH ×4 (08:43→21:25)
[2021-05-25] MEDS: ATORVASTATIN CALCIUM 20 MG TABLET PO SCH (08:48)
[2021-05-25] MEDS: IPRATRPIUM/ALBUTEROL 0.5/2.5MG 3 ML NEBU. NEB SCH ×4 (08:50→20:14)
--- NOTE | 2021-05-25 11:03 | PDOC ---
[employer] PROGRESS NOTE Date of Service DOS: DATE: 05/25/21 TIME: 11:00 Chief Complaint Chief Complaint Hypercapnic respiratory failure, mechanical fall at home. History of CHF depression GERD hypertension -Presented here after being found down at longterm. Patient reports that she frequently rolls out of her bed at night -Notably hypercapnic on presentation. Placed on BiPAP, hypercapnia starting to improve -No apparent fracture seen on imaging of the hip -will consult to pulmonary -PT OT -Diet as tolerated -DVT prophylaxis History of Present Illness History of Present Illness 05/25 Patient evaluated examined at bedside. Resting in bed. Clinically appears much improved more alert today. Much easier to understand as well. Okay to transfer out of ICU. PT OT. Plan of care discussed with bedside RN. Vitals/I&O Vitals/I&O: Vital Signs Date Time Temp Pulse Resp B/P (MAP) Pulse Ox O2 Delivery O2 Flow Rate FiO2 05/25/21 10:00 93 20 144/76 (98) 93 Nasal Cannula 5.0 05/25/21 08:00 98.3 98.3 I & O 05/24/21 05/24/21 05/25/21 15:00 23:00 07:00 Intake Total 345 ml 50 ml Output Total 0 ml 0 ml 0 ml Balance 345 ml 50 ml 0 ml Physical Exam General: Alert, Oriented X3, Cooperative Heart: Regular rate Lungs: Wheezing Abdomen: Normal bowel sounds, Soft, No tenderness Extremities: No edema, Normal pulses Skin: No significant lesion Labs Labs: Laboratory Tests Test 05/24/21 18:26 05/25/21 07:10 Glucose (Fingerstick) 85 mg/dL (70-99) White Blood Count 9.2 x10^3/uL (4.0-11.0) Red Blood Count 4.35 x10^6/uL (3.50-5.40) Hemoglobin 12.4 g/dL (12.0-15.5) Hematocrit 40.6 % (36.0-47.0) Mean Corpuscular Volume 93 fL (79-100) Mean Corpuscular Hemoglobin 29 pg (25-35) Mean Corpuscular Hemoglobin Concent 31 g/dL (31-37) Red Cell Distribution Width 14.0 % (11.5-14.5) Platelet Count 194 x10^3/uL (140-400) Neutrophils (%) (Auto) 51 % (31-73) Lymphocytes (%) (Auto) 37 % (24-48) Monocytes (%) (Auto) 9 % (0-9) Eosinophils (%) (Auto) 2 % (0-3) Basophils (%) (Auto) 1 % (0-3) Neutrophils # (Auto) 4.7 x10^3/uL (1.8-7.7) Lymphocytes # (Auto) 3.4 x10^3/uL (1.0-4.8) Monocytes # (Auto) 0.8 x10^3/uL (0.0-1.1) Eosinophils # (Auto) 0.2 x10^3/uL (0.0-0.7) Basophils # (Auto) 0.1 x10^3/uL (0.0-0.2) Sodium Level 144 mmol/L (136-145) Potassium Level 3.7 mmol/L (3.5-5.1) Chloride Level 103 mmol/L (98-107) Carbon Dioxide Level 35 mmol/L (21-32) Anion Gap 6 (6-14) Blood Urea Nitrogen 9 mg/dL (7-20) Creatinine 0.5 mg/dL (0.6-1.0) Estimated GFR (Cockcroft-Gault) 148.9 BUN/Creatinine Ratio 18 (6-20) Glucose Level 98 mg/dL (70-99) Calcium Level 8.4 mg/dL (8.5-10.1) Magnesium Level 2.2 mg/dL (1.8-2.4) Total Bilirubin 0.2 mg/dL (0.2-1.0) Aspartate Amino Transf (AST/SGOT) 10 U/L (15-37) Alanine Aminotransferase (ALT/SGPT) 13 U/L (14-59) Alkaline Phosphatase 77 U/L (46-116) Total Protein 7.0 g/dL (6.4-8.2) Albumin 2.8 g/dL (3.4-5.0) Albumin/Globulin Ratio 0.7 (1.0-1.7) Assessment and Plan Assessmemt and Plan Problems Medical Problems: (1) Fall Status: Acute (2) Hypercapnemia Status: Acute Comment Review of Relevant I have reviewed the following items asif (where applicable) has been applied. Medications: Current Medications Medications (Trade) Dose Ordered Sig/Cornel Route PRN Reason Start Time Stop Time Status Last Admin Dose Admin Divalproex Sodium (Depakote Er) 1,500 mg QHS PO 05/24/21 21:00 05/24/21 22:29 Albuterol/ Ipratropium (Duoneb) 3 ml RTQID NEB 05/24/21 12:00 05/25/21 08:50 Quetiapine Fumarate (SEROquel) 400 mg QHS PO 05/24/21 21:00 05/24/21 22:28 Heparin Sodium (Porcine) (Heparin Sodium) 5,000 unit Q8HRS SQ 05/24/21 14:00 05/25/21 06:35 Justifications for Admission Other Justification AUSTIN BABIN MD May 25, 2021 11:03
--- NOTE | 2021-05-25 13:57 | PDOC ---
PULMONARY PROGRESS NOTES DATE: 05/25/21 TIME: 13:56 Vitals Vital Signs Date Time Temp Pulse Resp B/P (MAP) Pulse Ox O2 Delivery O2 Flow Rate FiO2 05/25/21 12:15 93 Nasal Cannula 5.0 05/25/21 12:00 86 20 138/71 (93) 05/25/21 08:00 98.3 98.3 General: Alert, No acute distress Lungs: Wheezing Cardiovascular: S1, S2 Abdomen: Soft, Non-tender, Other Extremities: Other Labs Laboratory Tests Test 05/24/21 02:42 05/24/21 04:18 05/24/21 04:30 05/24/21 04:35 White Blood Count 10.2 x10^3/uL (4.0-11.0) Red Blood Count 3.85 x10^6/uL (3.50-5.40) Hemoglobin 11.4 g/dL (12.0-15.5) Hematocrit 37.0 % (36.0-47.0) Mean Corpuscular Volume 96 fL (79-100) Mean Corpuscular Hemoglobin 30 pg (25-35) Mean Corpuscular Hemoglobin Concent 31 g/dL (31-37) Red Cell Distribution Width 14.7 % (11.5-14.5) Platelet Count 199 x10^3/uL (140-400) Neutrophils (%) (Auto) 38 % (31-73) Lymphocytes (%) (Auto) 51 % (24-48) Monocytes (%) (Auto) 10 % (0-9) Eosinophils (%) (Auto) 2 % (0-3) Basophils (%) (Auto) 1 % (0-3) Neutrophils # (Auto) 3.8 x10^3/uL (1.8-7.7) Lymphocytes # (Auto) 5.1 x10^3/uL (1.0-4.8) Monocytes # (Auto) 1.0 x10^3/uL (0.0-1.1) Eosinophils # (Auto) 0.2 x10^3/uL (0.0-0.7) Basophils # (Auto) 0.1 x10^3/uL (0.0-0.2) Sodium Level 142 mmol/L (136-145) Potassium Level 4.0 mmol/L (3.5-5.1) Chloride Level 102 mmol/L (98-107) Carbon Dioxide Level 33 mmol/L (21-32) Anion Gap 7 (6-14) Blood Urea Nitrogen 14 mg/dL (7-20) Creatinine 0.6 mg/dL (0.6-1.0) Estimated GFR (Cockcroft-Gault) 120.7 BUN/Creatinine Ratio 23 (6-20) Glucose Level 98 mg/dL (70-99) Calcium Level 8.6 mg/dL (8.5-10.1) Phosphorus Level 4.6 mg/dL (2.6-4.7) Magnesium Level 1.7 mg/dL (1.8-2.4) Total Bilirubin 0.2 mg/dL (0.2-1.0) Aspartate Amino Transf (AST/SGOT) 22 U/L (15-37) Alanine Aminotransferase (ALT/SGPT) 15 U/L (14-59) Alkaline Phosphatase 78 U/L (46-116) Creatine Kinase 105 U/L (26-192) Myoglobin 27 ng/mL (9-82) Troponin I High Sensitivity 8 ng/L (4-50) HS-Dya-N-Type Natriuretic Peptide 20 pg/mL (0-124) Total Protein 7.2 g/dL (6.4-8.2) Albumin 2.9 g/dL (3.4-5.0) Albumin/Globulin Ratio 0.7 (1.0-1.7) Influenza Type A Antigen Negative (NEGATIVE) Influenza Type B Antigen Negative (NEGATIVE) SARS-CoV-2 RNA (VAZQUEZ) Negative (Negative) SARS-CoV-2 Antigen (Rapid) Negative (NEGATIVE) O2 Saturation 93 % (92-99) Arterial Blood pH 7.26 (7.35-7.45) Arterial Blood pCO2 at Patient Temp 83 mmHg (35-46) Arterial Blood pO2 at Patient Temp 78 mmHg (65-108) Arterial Blood HCO3 36 mmol/L (21-28) Arterial Blood Base Excess 6 mmol/L (-3-3) FiO2 Urine Collection Type U cath Urine Color Yellow Urine Clarity Clear Urine pH 6.0 (<5.0-8.0) Urine Specific Mercer 1.015 (1.000-1.030) Urine Protein Negative mg/dL (NEG-TRACE) Urine Glucose (UA) Negative mg/dL (NEG) Urine Ketones (Stick) Negative mg/dL (NEG) Urine Blood Negative (NEG) Urine Nitrite Negative (NEG) Urine Bilirubin Negative (NEG) Urine Urobilinogen Dipstick 1.0 mg/dL (0.2 mg/dL) Urine Leukocyte Esterase Negative (NEG) Urine RBC Occ /HPF (0-2) Urine WBC 0 /HPF (0-4) Urine Squamous Epithelial Cells Few /LPF Urine Bacteria 0 /HPF (0-FEW) Urine Mucus Slight /LPF Test 05/24/21 05:40 05/24/21 07:30 05/24/21 07:50 05/24/21 09:50 Lactic Acid Level 2.1 mmol/L (0.4-2.0) 2.1 mmol/L (0.4-2.0) O2 Saturation 89 % (92-99) Arterial Blood pH 7.35 (7.35-7.45) Arterial Blood pCO2 at Patient Temp 59 mmHg (35-46) Arterial Blood pO2 at Patient Temp 64 mmHg (65-108) Arterial Blood HCO3 32 mmol/L (21-28) Arterial Blood Base Excess 5 mmol/L (-3-3) FiO2 40% 01/10 16 Troponin I High Sensitivity 8 ng/L (4-50) Test 05/24/21 18:26 05/25/21 07:10 05/25/21 12:33 Glucose (Fingerstick) 85 mg/dL (70-99) 112 mg/dL (70-99) White Blood Count 9.2 x10^3/uL (4.0-11.0) Red Blood Count 4.35 x10^6/uL (3.50-5.40) Hemoglobin 12.4 g/dL (12.0-15.5) Hematocrit 40.6 % (36.0-47.0) Mean Corpuscular Volume 93 fL (79-100) Mean Corpuscular Hemoglobin 29 pg (25-35) Mean Corpuscular Hemoglobin Concent 31 g/dL (31-37) Red Cell Distribution Width 14.0 % (11.5-14.5) Platelet Count 194 x10^3/uL (140-400) Neutrophils (%) (Auto) 51 % (31-73) Lymphocytes (%) (Auto) 37 % (24-48) Monocytes (%) (Auto) 9 % (0-9) Eosinophils (%) (Auto) 2 % (0-3) Basophils (%) (Auto) 1 % (0-3) Neutrophils # (Auto) 4.7 x10^3/uL (1.8-7.7) Lymphocytes # (Auto) 3.4 x10^3/uL (1.0-4.8) Monocytes # (Auto) 0.8 x10^3/uL (0.0-1.1) Eosinophils # (Auto) 0.2 x10^3/uL (0.0-0.7) Basophils # (Auto) 0.1 x10^3/uL (0.0-0.2) Sodium Level 144 mmol/L (136-145) Potassium Level 3.7 mmol/L (3.5-5.1) Chloride Level 103 mmol/L (98-107) Carbon Dioxide Level 35 mmol/L (21-32) Anion Gap 6 (6-14) Blood Urea Nitrogen 9 mg/dL (7-20) Creatinine 0.5 mg/dL (0.6-1.0) Estimated GFR (Cockcroft-Gault) 148.9 BUN/Creatinine Ratio 18 (6-20) Glucose Level 98 mg/dL (70-99) Calcium Level 8.4 mg/dL (8.5-10.1) Magnesium Level 2.2 mg/dL (1.8-2.4) Total Bilirubin 0.2 mg/dL (0.2-1.0) Aspartate Amino Transf (AST/SGOT) 10 U/L (15-37) Alanine Aminotransferase (ALT/SGPT) 13 U/L (14-59) Alkaline Phosphatase 77 U/L (46-116) Total Protein 7.0 g/dL (6.4-8.2) Albumin 2.8 g/dL (3.4-5.0) Albumin/Globulin Ratio 0.7 (1.0-1.7) Laboratory Tests Test 05/24/21 18:26 05/25/21 07:10 05/25/21 12:33 Glucose (Fingerstick) 85 mg/dL (70-99) 112 mg/dL (70-99) White Blood Count 9.2 x10^3/uL (4.0-11.0) Red Blood Count 4.35 x10^6/uL (3.50-5.40) Hemoglobin 12.4 g/dL (12.0-15.5) Hematocrit 40.6 % (36.0-47.0) Mean Corpuscular Volume 93 fL (79-100) Mean Corpuscular Hemoglobin 29 pg (25-35) Mean Corpuscular Hemoglobin Concent 31 g/dL (31-37) Red Cell Distribution Width 14.0 % (11.5-14.5) Platelet Count 194 x10^3/uL (140-400) Neutrophils (%) (Auto) 51 % (31-73) Lymphocytes (%) (Auto) 37 % (24-48) Monocytes (%) (Auto) 9 % (0-9) Eosinophils (%) (Auto) 2 % (0-3) Basophils (%) (Auto) 1 % (0-3) Neutrophils # (Auto) 4.7 x10^3/uL (1.8-7.7) Lymphocytes # (Auto) 3.4 x10^3/uL (1.0-4.8) Monocytes # (Auto) 0.8 x10^3/uL (0.0-1.1) Eosinophils # (Auto) 0.2 x10^3/uL (0.0-0.7) Basophils # (Auto) 0.1 x10^3/uL (0.0-0.2) Sodium Level 144 mmol/L (136-145) Potassium Level 3.7 mmol/L (3.5-5.1) Chloride Level 103 mmol/L (98-107) Carbon Dioxide Level 35 mmol/L (21-32) Anion Gap 6 (6-14) Blood Urea Nitrogen 9 mg/dL (7-20) Creatinine 0.5 mg/dL (0.6-1.0) Estimated GFR (Cockcroft-Gault) 148.9 BUN/Creatinine Ratio 18 (6-20) Glucose Level 98 mg/dL (70-99) Calcium Level 8.4 mg/dL (8.5-10.1) Magnesium Level 2.2 mg/dL (1.8-2.4) Total Bilirubin 0.2 mg/dL (0.2-1.0) Aspartate Amino Transf (AST/SGOT) 10 U/L (15-37) Alanine Aminotransferase (ALT/SGPT) 13 U/L (14-59) Alkaline Phosphatase 77 U/L (46-116) Total Protein 7.0 g/dL (6.4-8.2) Albumin 2.8 g/dL (3.4-5.0) Albumin/Globulin Ratio 0.7 (1.0-1.7) Medications Active Scripts Medications Dose Route/Sig Max Daily Dose Days Date Category Seroquel (Quetiapine Fumarate) 200 Mg Tablet 2 Tab PO QHS 05/24/21 Reported Prilosec Otc (Omeprazole Magnesium) 20 Mg Tablet.dr 1 Tab PO DAILY 30 05/24/21 Reported Mylanta Maximum Strength Liq (Mag Hydrox/Aluminum Hyd/Simeth) 355 Ml Oral.susp 355 Ml PO PRN Q4HRS PRN 05/24/21 Reported Metformin Hcl 500 Mg Tablet 500 Mg PO BIDWMEALS 05/24/21 Reported Escitalopram Oxalate 10 Mg Tablet 2 Tab PO DAILY 05/24/21 Reported Combivent Respimat Inhal (Ipratropium/Albuterol Sulfate) 4 Gm Aer.w.adap 2 Inh IH QID 05/24/21 Reported Divalproex Sodium Er (Divalproex Sodium) 500 Mg Tab.er.24h 3 Tab PO QHS 05/24/21 Reported Clonazepam (Clonazepam) 0.5 Mg Tablet 0.5 Mg PO BID 05/24/21 Reported Atorvastatin Calcium 20 Mg Tablet 1 Tab PO DAILY 05/24/21 Reported Acetaminophen 500 Mg Tablet 1 Tab PO PRN TID PRN 15 05/24/21 Reported Polyethylene Glycol 3350 255 Gm Powder 17 Gm PO DAILY 10/31/16 Reported Duoneb 0.5-3(2.5) Mg/3 Ml (Albuterol/Ipratropium) 3 Ml Ampul.neb 3 Ml NEB QID 10/31/16 Reported Clonidine Hcl 0.1 Mg Tablet 0.1 Mg PO QID 10/31/16 Reported Impression . Full consult dictated Acute on chronic hypercapnic respiratory failure Suspect obesity hypoventilation syndrome, obstructive sleep apnea See orders CLIVE MEDRANO MD May 25, 2021 13:57
--- NOTE | 2021-05-25 19:29 | CONS ---
DATE OF CONSULTATION: 05/25/2021 ATTENDING PHYSICIAN: Lencho Anrdade MD REASON FOR CONSULTATION: The patient is seen in pulmonary consultation at the request of Dr. Andrade for acute on chronic hypercapnic respiratory failure. Initial arterial blood gas revealed a pH of 7.26, PaCO2 of 83, pO2 of 78, bicarb of 36. HISTORY OF PRESENT ILLNESS: The patient is a 65-year-old morbid obese individual who continues to smoke, underlying COPD, has been having some issues with falling at home, [facility] She was transferred to the Emergency Room, was evaluated, was admitted. An arterial blood gas revealed the above ABG. White count was normal. I was asked to see her in consultation for further evaluation and management. Chest x-ray was totally clear. Apparently, the patient is on [facility] oxygen at the [facility], I believe 3-4 liters. She states that she has been on it for approximately 3-4 years. She does not have a documented history of obstructive sleep apnea. She does have clinical symptoms and signs of obstructive sleep apnea, awakens unrefreshed from her sleep. She falls asleep easily throughout the day. There has been no apnea spells witnessed. CURRENT MEDICATIONS: List was reviewed. PAST MEDICAL HISTORY: Chronic heart failure, obesity, depression, gastroesophageal reflux, COPD, smoker. ALLERGIES: No known drug allergies. FAMILY HISTORY: Hypertension. ALLERGIES: HALOPERIDOL. PHYSICAL EXAMINATION: VITAL SIGNS: Stable. She is currently off of BiPAP, on 4-5 liters of oxygen, saturations around 94%. HEENT: Eyes: The sclerae were nonicteric. NECK: Jugular venous distention was not elevated. No lymphadenopathy. CHEST: Full expansion. LUNGS: Poor flow with no wheezes. CARDIOVASCULAR: Regular rate and rhythm with S1, S2, no S3. ABDOMEN: Soft, obese. EXTREMITIES: No clubbing, cyanosis or pitting edema. LABORATORY DATA: Reviewed. Arterial blood gas as indicated above. IMPRESSION: 1. Acute on chronic hypoxemic hypercapnic respiratory failure, multifactorial. 2. Suspect obstructive sleep apnea. 3. Chronic obstructive pulmonary disease, unknown FEV1. 4. Tobacco dependent. 5. Frequent falls, possibly related to hypercapnia. PLAN: 1. Repeat arterial blood gas on 40% BiPAP revealed a pH of 7.35, PaCO2 of 59, pO2 of 64, improved. Recommend the patient be placed on nasal cannula oxygen, no more than 2 liters throughout the day. 2. Continue BiPAP at bedtime. 3. Outpatient polysomnogram. 4. The patient is instructed on the importance of discontinued tobacco use. 5. I do not think that she is currently experiencing acute exacerbation of COPD or heart failure. 6. Continue DVT prophylaxis. 7. No need for antibiotics or steroids at this time. ANNIE DR: Marissa TID: [id number]
[2021-05-25] MEDS: QUEtiapine 100 MG TABLET. PO SCH (21:24)
[2021-05-25] MEDS: DIVALPROEX EXTENDED RELEASE 500 MG TAB.ER.24H. PO SCH (21:25)
[2021-05-26] VITALS: BP 91/64
[2021-05-26 04:00] VITALS: BP 153/76
[2021-05-26] MEDS: HEPARIN for SUB-Q USE 5,000 UNIT/ML VIAL. SQ SCH ×2 (06:31→14:12)
[2021-05-26] MEDS: IPRATRPIUM/ALBUTEROL 0.5/2.5MG 3 ML NEBU. NEB SCH ×3 (07:07→15:18)
[2021-05-26 08:00] VITALS: BP 170/94
[2021-05-26] MEDS: INSULIN LISPRO 300 UNITS/3 ML VIAL. SQ SCH ×2 (08:00→12:00)
[2021-05-26] MEDS: PANTOPRAZOLE 40 MG TABLET.DR. PO SCH (08:12)
[2021-05-26] MEDS: cloNIDine HCL 0.1 MG TABLET PO SCH ×2 (08:22→13:06)
[2021-05-26] MEDS: metFORMIN 500 MG TABLET PO SCH (08:54)
[2021-05-26] MEDS: CITALOPRAM 20 MG TABLET. PO SCH (08:54)
[2021-05-26] MEDS: ATORVASTATIN CALCIUM 20 MG TABLET PO SCH (08:54)
[2021-05-26] MEDS: clonazePAM 0.5 MG TABLET PO SCH (08:54)
[2021-05-26] MEDS: POLYETHYLENE GLYCOL 3350 17 GM PACKET. PO SCH (09:11)
--- NOTE | 2021-05-26 10:38 | PDOC ---
PULMONARY PROGRESS NOTES DATE: 05/26/21 TIME: 10:38 Vitals Vital Signs Date Time Temp Pulse Resp B/P (MAP) Pulse Ox O2 Delivery O2 Flow Rate FiO2 05/26/21 09:27 94 Nasal Cannula 5.0 05/26/21 09:00 76 22 05/26/21 08:22 170/94 05/26/21 08:00 97.9 97.9 General: Alert, No acute distress Lungs: Wheezing Cardiovascular: S1, S2 Abdomen: Soft, Non-tender, Other Extremities: Other Labs Laboratory Tests Test 05/24/21 18:26 05/25/21 07:10 05/25/21 12:33 05/26/21 08:14 Glucose (Fingerstick) 85 mg/dL (70-99) 112 mg/dL (70-99) 101 mg/dL (70-99) White Blood Count 9.2 x10^3/uL (4.0-11.0) Red Blood Count 4.35 x10^6/uL (3.50-5.40) Hemoglobin 12.4 g/dL (12.0-15.5) Hematocrit 40.6 % (36.0-47.0) Mean Corpuscular Volume 93 fL (79-100) Mean Corpuscular Hemoglobin 29 pg (25-35) Mean Corpuscular Hemoglobin Concent 31 g/dL (31-37) Red Cell Distribution Width 14.0 % (11.5-14.5) Platelet Count 194 x10^3/uL (140-400) Neutrophils (%) (Auto) 51 % (31-73) Lymphocytes (%) (Auto) 37 % (24-48) Monocytes (%) (Auto) 9 % (0-9) Eosinophils (%) (Auto) 2 % (0-3) Basophils (%) (Auto) 1 % (0-3) Neutrophils # (Auto) 4.7 x10^3/uL (1.8-7.7) Lymphocytes # (Auto) 3.4 x10^3/uL (1.0-4.8) Monocytes # (Auto) 0.8 x10^3/uL (0.0-1.1) Eosinophils # (Auto) 0.2 x10^3/uL (0.0-0.7) Basophils # (Auto) 0.1 x10^3/uL (0.0-0.2) Sodium Level 144 mmol/L (136-145) Potassium Level 3.7 mmol/L (3.5-5.1) Chloride Level 103 mmol/L (98-107) Carbon Dioxide Level 35 mmol/L (21-32) Anion Gap 6 (6-14) Blood Urea Nitrogen 9 mg/dL (7-20) Creatinine 0.5 mg/dL (0.6-1.0) Estimated GFR (Cockcroft-Gault) 148.9 BUN/Creatinine Ratio 18 (6-20) Glucose Level 98 mg/dL (70-99) Calcium Level 8.4 mg/dL (8.5-10.1) Magnesium Level 2.2 mg/dL (1.8-2.4) Total Bilirubin 0.2 mg/dL (0.2-1.0) Aspartate Amino Transf (AST/SGOT) 10 U/L (15-37) Alanine Aminotransferase (ALT/SGPT) 13 U/L (14-59) Alkaline Phosphatase 77 U/L (46-116) Total Protein 7.0 g/dL (6.4-8.2) Albumin 2.8 g/dL (3.4-5.0) Albumin/Globulin Ratio 0.7 (1.0-1.7) Laboratory Tests Test 05/25/21 12:33 05/26/21 08:14 Glucose (Fingerstick) 112 mg/dL (70-99) 101 mg/dL (70-99) Medications Active Scripts Medications Dose Route/Sig Max Daily Dose Days Date Category Seroquel (Quetiapine Fumarate) 200 Mg Tablet 2 Tab PO QHS 05/24/21 Reported Prilosec Otc (Omeprazole Magnesium) 20 Mg Tablet.dr 1 Tab PO DAILY 30 05/24/21 Reported Mylanta Maximum Strength Liq (Mag Hydrox/Aluminum Hyd/Simeth) 355 Ml Oral.susp 355 Ml PO PRN Q4HRS PRN 05/24/21 Reported Metformin Hcl 500 Mg Tablet 500 Mg PO BIDWMEALS 05/24/21 Reported Escitalopram Oxalate 10 Mg Tablet 2 Tab PO DAILY 05/24/21 Reported Combivent Respimat Inhal (Ipratropium/Albuterol Sulfate) 4 Gm Aer.w.adap 2 Inh IH QID 05/24/21 Reported Divalproex Sodium Er (Divalproex Sodium) 500 Mg Tab.er.24h 3 Tab PO QHS 05/24/21 Reported Clonazepam (Clonazepam) 0.5 Mg Tablet 0.5 Mg PO BID 05/24/21 Reported Atorvastatin Calcium 20 Mg Tablet 1 Tab PO DAILY 05/24/21 Reported Acetaminophen 500 Mg Tablet 1 Tab PO PRN TID PRN 15 05/24/21 Reported Polyethylene Glycol 3350 255 Gm Powder 17 Gm PO DAILY 10/31/16 Reported Duoneb 0.5-3(2.5) Mg/3 Ml (Albuterol/Ipratropium) 3 Ml Ampul.neb 3 Ml NEB QID 10/31/16 Reported Clonidine Hcl 0.1 Mg Tablet 0.1 Mg PO QID 10/31/16 Reported Impression . IMPRESSION: 1. Acute on chronic hypoxemic hypercapnic respiratory failure, multifactorial. 2. Suspect obstructive sleep apnea. 3. Chronic obstructive pulmonary disease, unknown FEV1. 4. Tobacco dependent. 5. Frequent falls, possibly related to hypercapnia. Plan . Updated 05/26 Patient clinically improved Nasal cannula oxygen As needed BiPAP Transfer out of the intensive care unit Avoid oversedation PLAN: 1. Repeat arterial blood gas on 40% BiPAP revealed a pH of 7.35, PaCO2 of 59, pO2 of 64, improved. Recommend the patient be placed on nasal cannula oxygen, no more than 2 liters throughout the day. 2. Continue BiPAP at bedtime. 3. Outpatient polysomnogram. 4. The patient is instructed on the importance of discontinued tobacco use. 5. I do not think that she is currently experiencing acute exacerbation of COPD or heart failure. 6. Continue DVT prophylaxis. 7. No need for antibiotics or steroids at this time. CLIVE MEDRANO MD May 26, 2021 10:38
--- NOTE | 2021-05-26 11:17 | PDOC ---
[employer] PROGRESS NOTE Date of Service DOS: DATE: 05/26/21 TIME: 11:16 Chief Complaint Chief Complaint Hypercapnic respiratory failure, mechanical fall at home. History of CHF depression GERD hypertension -Presented here after being found down at custodial. Patient reports that she frequently rolls out of her bed at night -Notably hypercapnic on presentation. Placed on BiPAP, hypercapnia starting to improve -No apparent fracture seen on imaging of the hip -will consult to pulmonary -PT OT -Diet as tolerated -DVT prophylaxis History of Present Illness History of Present Illness 05/26 Evaluated examined at bedside. Resting in bed on 3 L nasal cannula easily awoken. Has continued improvement. Okay to transfer out of ICU. Discussed with bedside RN. 05/25 Patient evaluated examined at bedside. Resting in bed. Clinically appears much improved more alert today. Much easier to understand as well. Okay to transfer out of ICU. PT OT. Plan of care discussed with bedside RN. Vitals/I&O Vitals/I&O: Vital Signs Date Time Temp Pulse Resp B/P (MAP) Pulse Ox O2 Delivery O2 Flow Rate FiO2 05/26/21 09:27 94 Nasal Cannula 5.0 05/26/21 09:00 76 22 05/26/21 08:22 170/94 05/26/21 08:00 97.9 97.9 I & O 05/25/21 05/25/21 05/26/21 15:00 23:00 07:00 Intake Total 830 ml 450 ml Output Total 520 ml 320 ml 200 ml Balance 310 ml 130 ml -200 ml Physical Exam General: Alert, Oriented X3, Cooperative Heart: Regular rate Lungs: Wheezing Abdomen: Normal bowel sounds, Soft, No tenderness Extremities: No edema, Normal pulses Skin: No significant lesion Labs Labs: Laboratory Tests Test 05/25/21 12:33 05/26/21 08:14 Glucose (Fingerstick) 112 mg/dL (70-99) 101 mg/dL (70-99) Assessment and Plan Assessmemt and Plan Problems Medical Problems: (1) Fall Status: Acute (2) Hypercapnemia Status: Acute Comment Review of Relevant I have reviewed the following items asif (where applicable) has been applied. Justifications for Admission Other Justification AUSTIN BABIN MD May 26, 2021 11:17
[2021-05-26 12:00] VITALS: BP 174/75
--- NOTE | 2021-05-26 15:00 | NUR ---
1600h- noted doctor's order for discharge, child protective services social worker also aware. child protective services social worker book for transport between 1600h-1630h. [facility], talked to Sarah and endorsed the patient, aware already of patient for transfer. 1630h- Removed IV lines. Stable vital signs noted. Assisted patient in transferring to wheelchair, headed out of unit by 1640h with patient's belongs in a plastic bag and yellow envelope of patient's file, with the ambulance personnel.
--- NOTE | 2021-05-26 15:03 | NUR ---
SS following up with discharge planning. SS reviewed pt chart and discussed with pt RN. Pt is LTC resident from [facility], ; fax [phone]. COVID19 negative. Pt is currently requiring oxygen at two liters nasal canula. PT/OT recommended group home unit. Clinical updates phoned and faxed to [place]. Anticipate discharge back to facility soon. SS will continue to follow for discharge planning. Addendum: 05/26/21 at 1544 by [place] VALLE SS Discharge orders received for return to [facility] and phoned and faxed to facility. Pt will discharge today and return to facility between 1600 and 1630 via [facility]. Pt, pt's RN, and pt's family notified.
--- NOTE | 2021-05-26 15:10 | SNU/HH DC ---
DISCHARGE ORDERS DISCHARGE INFORMATION: DISCHARGE DATE: May 26, 2021 FINAL DIAGNOSIS Problems Medical Problems: (1) Fall Status: Acute (2) Hypercapnemia Status: Acute CONDITION ON DISCHARGE: Stable CODE STATUS: Code Status: Full NURSING HOME: SNF STAY <30 DAYS: Yes POST DISCHARGE ORDERS: ACTIVITY ORDERS: Activity as tolerated WEIGHT BEARING STATUS: Full weight bearing, As tolerated DIET AFTER DISCHARGE: ADA WOUND/INCISION CARE: Ice to area for comfort CHECKS AFTER DISCHARGE: CHECKS AFTER DISCHARGE: Check blood press - daily, Check your Temp as needed, Weigh Yourself Daily TREATMENT/EQUIPMENT ORDERS: RESPIRATORY EQUIPMENT NEEDED: Oxygen Physical Therapy For: Evalulation/Treatment Occupational Therapy For: Evaluation/Treatment DISCHARGE MEDICATIONS: Home Meds Reported Medications Quetiapine Fumarate (SEROQUEL) 200 Mg Tablet, 2 TAB PO QHS for SCHIZOPHRENIA, #30 TAB 1 Refill 05/24/21 Omeprazole Magnesium (PRILOSEC OTC) 20 Mg Tablet.dr, 1 TAB PO DAILY for GERD for 30 Days, #30 TAB 0 Refills 05/24/21 Mag Hydrox/Aluminum Hyd/Simeth (Mylanta Maximum Strength Liq) 355 Ml Oral.susp, 355 ML PO PRN Q4HRS PRN for GI SYMPTOMS, MISC 05/24/21 Metformin Hcl (METFORMIN HCL) 500 Mg Tablet, 500 MG PO BIDWMEALS for ANTI- DIABETIC, TAB 0 Refills 05/24/21 Escitalopram Oxalate (ESCITALOPRAM OXALATE) 10 Mg Tablet, 2 TAB PO DAILY for DEPRESSION, #30 TAB 3 Refills 05/24/21 Ipratropium/Albuterol Sulfate (COMBIVENT RESPIMAT INHAL) 4 Gm Aer.w.adap, 2 INH IH QID for WHEEZING, EACH 05/24/21 Divalproex Sodium (DIVALPROEX SODIUM ER) 500 Mg Tab.er.24h, 3 TAB PO QHS for SCHIZOPHENIA, #60 TAB 2 Refills 05/24/21 Clonazepam (CLONAZEPAM ) 0.5 Mg Tablet, 0.5 MG PO BID for SCHIZOPHRENIA, TAB 05/24/21 Atorvastatin Calcium (ATORVASTATIN CALCIUM) 20 Mg Tablet, 1 TAB PO DAILY for HLD, #30 TAB 5 Refills 05/24/21 Acetaminophen (ACETAMINOPHEN) 500 Mg Tablet, 1 TAB PO PRN TID PRN for pain or fever for 15 Days, #60 TAB 0 Refills 05/24/21 Polyethylene Glycol 3350 (POLYETHYLENE GLYCOL 3350) 255 Gm Powder, 17 GM PO DAILY, #527 GM 10/31/16 Ipratropium/Albuterol Sulfate (DUONEB 0.5-3(2.5) MG/3 ML) 3 Ml Ampul.neb, 3 ML NEB QID, EACH 10/31/16 Clonidine Hcl (CLONIDINE HCL) 0.1 Mg Tablet, 0.1 MG PO QID, TAB 10/31/16 Discontinued Reported Medications Trazodone Hcl (TRAZODONE HCL) 100 Mg Tablet, 100 MG PO HS, TAB 10/31/16 Meloxicam (MELOXICAM) 15 Mg Tablet, 1 TAB PO DAILY, #30 TAB 2 Refills 10/31/16 Lorazepam (LORAZEPAM) 1 Mg Tablet, 1 MG PO HS, TAB 10/31/16 Folic Acid (FOLIC ACID) 1 Mg Tablet, 1 MG PO DAILY, TAB 10/31/16 Fluoxetine Hcl (FLUOXETINE HCL) 40 Mg Capsule, 40 MG PO DAILY, CAP 10/31/16 Cetirizine Hcl (CETIRIZINE HCL) 10 Mg Tablet, 1 TAB PO DAILY, #30 TAB 5 Refills 10/31/16 AUSTIN BABIN MD May 26, 2021 15:10
[2021-05-26 16:00] VITALS: BP 128/73
== END 2021-05-26 16:40 | DRG 189 ==
LOC: ER 02:20 → 1 WEST ICU 05:00
PROVIDERS: ADMIT Student in an Organized Health Care Education/Training Program; ATTEND Student in an Organized Health Care Education/Training Program
PROC: 5A09357 Assistance with Respiratory Ventilation, Less than 24 Consecutive Hours, Continuous Positive Airway Pressure (ICD-10-PCS; principal; 2021-05-24)
PROC: 5A09357 Assistance with Respiratory Ventilation, Less than 24 Consecutive Hours, Continuous Positive Airway Pressure (ICD-10-PCS; 2021-05-25)
PROC: 5A09357 Assistance with Respiratory Ventilation, Less than 24 Consecutive Hours, Continuous Positive Airway Pressure (ICD-10-PCS; 2021-05-26)
DX: J96.21 Acute and chronic respiratory failure with hypoxia (principal); E66.01 Morbid (severe) obesity due to excess calories; F17.200 Nicotine dependence, unspecified, uncomplicated; I11.0 Hypertensive heart disease with heart failure; I50.9 Heart failure, unspecified; J44.9 Chronic obstructive pulmonary disease, unspecified; J96.22 Acute and chronic respiratory failure with hypercapnia; R29.6 Repeated falls; Y92.009 Unspecified place in unspecified non-institutional (private) residence as the place of occurrence of the external cause; Z82.49 Family history of ischemic heart disease and other diseases of the circulatory system; Z91.81 History of falling; F32.A Depression, unspecified; K21.9 Gastro-esophageal reflux disease without esophagitis; Z68.38 Body mass index [BMI] 38.0-38.9, adult; Z20.822 Contact with and (suspected) exposure to COVID-19; Z79.899 Other long term (current) drug therapy; W18.39XA Other fall on same level, initial encounter; Y93.89 Activity, other specified; Y99.8 Other external cause status
CPT/HCPCS: 36415; 36600; 70450; 71045; 72125; 73501; 80053; 81001; 82550; 82805; 82962; 83605; 83735; 83874; 83880; 84100; 84484; 85025; 87040; 87428; 93005; 94640; 94660; 94760; J1644; J1815; J2060; J2930; J3475; U0003; U0005; 97116-GP; 99285-25; G0378

== ENCOUNTER 2021-07-30 19:50 | Emergency (ER) | payer OTHER ==
[~2021-07-30] VITALS: Ht 162.6 cm; Wt 95.9 kg
[~2021-07-30 19:50] MED LIST changes: +ACET500T68 PO; +ATOR20TA58 PO; +CLON-77 PO; +DIVA500T17 PO; +ESCITALOPRAM OX10 MG PO; +IPRA4AER IH; +MAG-115 PO; +METF500T16 PO; +OMEP20TA63 PO; +QUET200T4 PO
[2021-07-30] MEDS ORDERED: fentaNYL PF VIAL 100 MCG/2 ML VIAL IVP ONE (20:15)
--- NOTE | 2021-07-30 20:23 | PHYS DOC ---
Past Medical History Past Medical History: CHF, Constipation, Depression, GERD, Hypertension (GINA FRAGOSO ACID PATROLLER) Past Surgical History: Other Additional Past Surgical Histo: UNKNOWN POOR HISTORIAN (GINA FRAGOSO APRN) Smoking Status: Unknown if ever smoked Alcohol Use: None Drug Use: None (GINA FRAGOSO APRN) General Adult EDM: Chief Complaint: PAIN CONTROL HPI: HPI: Patient is a 65 year old female who presents with patient states she has been having right sided pain in the shoulder, right sided back and side, right lower back with sharp shooting pain going down the right leg since her fall on May 24. However looking back it looks like she was having left-sided hip pain. Patient called EMS herself from her [facility] because the nursing staff were only giving her Tylenol for her pain. EMS states the patient got up and walked over to EMS cot without difficulty. Patient is on her normal 4 L of the oxygen for her COPD, acute respiratory failure and CHF. Patient states she only has this pain when she twists and moves. No new fall. She is resting comfortably in the room. Rating her pain a 10 out of 10. Denies chest pain, shortness of air, nausea, vomiting, diarrhea, dizziness, headache, neck pain, focal weakness, numbness or tingling. She has history of CHF, COPD, high cholesterol, depression, constipation, hypertension, GERD, diabetes, cellulitis, insomnia. (GINA FRAGOSO ACID PATROLLER) Review of Systems: Review of Systems: Constitutional: Denies fever or chills. [] Eyes: Denies change in visual acuity. [] HENT: Denies nasal congestion or sore throat. [] Respiratory: Denies cough or shortness of breath. [] Cardiovascular: Denies chest pain or edema. [] GI: Denies abdominal pain, nausea, vomiting, bloody stools or diarrhea. [] : Denies dysuria. [] Musculoskeletal: + Right back pain or +Right shoulder joint pain. +Right leg[] Integument: Denies rash. [] Neurologic: Denies headache, focal weakness or sensory changes. [] Endocrine: Denies polyuria or polydipsia. [] Lymphatic: Denies swollen glands. [] Psychiatric: Denies depression or anxiety. [] (GINA FRAGOSO APRN) Heart Score: C/O Chest Pain: No (GINA FRAGOSO APRN) Allergies: Allergies: Allergies Coded Allergies Type Severity Reaction Last Updated Verified haloperidol Allergy Intermediate 11/01/16 Yes tetanus immune globulin Allergy Intermediate 11/01/16 Yes (GINA FRAGOSO APRN) Physical Exam: PE: Constitutional: Well developed, well nourished, no acute distress, non-toxic appearance. [] HENT: Normocephalic, atraumatic, bilateral external ears normal, oropharynx moist, no oral exudates, nose normal. [] Eyes: PERRLA, EOMI, conjunctiva normal, no discharge. [] Neck: Normal range of motion, no tenderness, supple, no stridor. [] Cardiovascular:Heart rate regular rhythm, no murmur [] Lungs & Thorax: Bilateral breath sounds clear to auscultation [] Abdomen: Bowel sounds normal, soft, no tenderness, no masses, no pulsatile masses. [] Skin: Warm, dry, no erythema, no rash. [] Back: Right side tenderness, no CVA tenderness. [] Extremities: No tenderness, no cyanosis, no clubbing, ROM intact, no edema. [] Neurologic: Alert and oriented X 3, normal motor function, normal sensory funct ion, no focal deficits noted. [] Psychologic: Affect normal, judgement normal, mood normal. [] (GINA FRAGOSO APRN) EKG: EK and read by Dr. Peterson is a sinus rhythm and no STEMI (GINA FRAGOSO APRN) Radiology/Procedures: Radiology/Procedures: [] (GINA FRAGOSO APRN) Radiology/Procedures: [facility] [address] [place] [address] IMAGING REPORT Signed PATIENT: KY ROJAS ACCOUNT: [id number] : 1955 LOCATION: ER AGE: 65 SEX: F EXAM STATUS: REG ER ORD. PHYSICIAN: GINA FRAGOSO APRN REASON: PAIN, NO KNOWN INJURY PROCEDURE: SHOULDER 2+V RIGHT Exam: Right shoulder 3 views INDICATION: Pain, no known injury TECHNIQUE: Frontal view of the right shoulder with internal and external rotation and transscapular Y views Comparisons: None FINDINGS: Diffuse osteopenia. There is degenerative change at the glenohumeral joint. Calcific density at the insertion of the supraspinatus. No acute or healed fractures. IMPRESSION: 1. No acute osseous abnormality. 2. Findings suspicious for calcific tendinitis of the supraspinatus tendon. 3. Degenerative changes described above. Electronically signed by: Nathaniel Figueroa MD (07/30/2021 9:32 PM) [facility] DICTATED and SIGNED BY: NATHANIEL FIGUEROA MD DATE: 07/30/212129 [id number] [place] [address] IMAGING REPORT Signed PATIENT: KY ROJAS ACCOUNT: [id number] : 1955 LOCATION: ER AGE: 65 SEX: F EXAM STATUS: REG ER ORD. PHYSICIAN: GINA FRAGOSO APRN REASON: PAIN, NO KNOWN INJURY PROCEDURE: HIP RIGHT 2V WITH PELVIS INDICATION: Reason: PAIN, NO KNOWN INJURY / Spl. Instructions: / History: COMPARISON: May 24, 2021 IMPRESSION: 3 views of the pelvis and right hip there are some degenerative changes the lumbar spine as well as the bilateral hips with the hips degenerative changes appearing moderate to severe bilaterally. No evidence of dislocation or a definite acute fracture line at the right hip. There is some coarse periosteal reaction at the proximal right femur versus callus formation. Electronically signed by: Jose Murillo MD (07/30/2021 10:12 PM) [id number] DICTATED and SIGNED BY: JOSE MURILLO MD DATE: 07/30/212207 [facility] [address] [place], [place] [id number] IMAGING REPORT Signed PATIENT: KY ROJAS ACCOUNT: [id number] : 1955 LOCATION: ER AGE: 65 SEX: F EXAM STATUS: REG ER ORD. PHYSICIAN: GINA FRAGOSO APRN REASON: pain with movement after fall PROCEDURE: RIBS RIGHT AND PA CHEST Exam: Right RIBS with PA chest INDICATION: Pain with movement after fall TECHNIQUE: Frontal view of the chest with frontal and oblique views the right ribs Comparisons: 05/24/2021 FINDINGS: Heart is mildly enlarged pulmonary vessels are within normal limits. The lung and pleural spaces are clear. No displaced rib fracture identified. IMPRESSION: 1. No acute cardiopulmonary process. 2. No displaced rib fracture. Electronically signed by: Nathaniel Figueroa MD (07/30/2021 9:30 PM) [facility] DICTATED and SIGNED BY: NATHANIEL FIGUEROA MD DATE: 07/30/212127 [facility] [address] [place], [place] [id number] IMAGING REPORT Signed PATIENT: KY ROJAS ACCOUNT: [id number] : 1955 LOCATION: ER AGE: 65 SEX: F EXAM STATUS: REG ER ORD. PHYSICIAN: GINA FRAGOSO APRN REASON: PAIN, NO KNOWN INJURY PROCEDURE: CT LUMBAR SPINE WO CONTRAST Exam: CT of lumbar spine without contrast INDICATION: Pain, no known injury TECHNIQUE: Sequential axial images through the lumbar spine obtained without IV contrast. Sagittal and coronal reformatted images were reconstructed from the axial data and reviewed. Exposure: One or more of the following in the visualized dose reduction techniques were utilized for this examination: 1. Automated exposure control 2. Adjustment of the MA and/or KV according to patient size 3. Use of iterative of reconstructive technique Comparisons: None FINDINGS: Vertebral body heights and alignment are well-maintained. Fracture through the lumbar spine is is not identified. Multilevel spondylotic changes lumbar spine with mild broad-based is bulge at L4-L5 and L5-S1. Bilateral facet arthropathy lower lumbar spine with moderate spinal canal stenosis. Sagittal 4 L5. Visualized paraspinal soft tissues are unremarkable. IMPRESSION: Negative CT lumbar spine for acute traumatic injury. Spondylotic changes as described above. Electronically signed by: Nathaniel Figueroa MD (07/30/2021 9:57 PM) [facility] DICTATED and SIGNED BY: NATHANIEL FIGUEROA MD DATE: 07/30/212151 (EMILY PETERSON DO) Course & Med Decision Making: Course & Med Decision Making Pertinent Labs and Imaging studies reviewed. (See chart for details) See HPI. Alert and oriented x4. Ambulatory steady gait. Moving all extremities equally with equal ladies suit operator strengths range of motion. No deformities. No joint swelling. Pedal pulse strong are present. Right lower back tenderness. No focal bony spinal tenderness. Full range of motion of her neck. Patient is given some fentanyl in the ED. I will review x-rays. Patient is a very poor historian. Nursing has tried to call the nursing facility for a report twice but got no answer. This is most likely musculoskeletal and nerve pain. Patient states she does not like the facility that she is at states the food is " gross and cold". She states that all they give her is Tylenol. She is in no distress. No saddle anesthesia. Neurologically intact. Sensations intact. Cap refill less than 2 seconds. Report given to Dr Peterson. Awaiting labs and radiology results. Patient stable without complaints. [] (GINA FRAGOSO APRN) Dragon Disclaimer: Dragon Disclaimer: This electronic medical record was generated, in whole or in part, using a voice recognition dictation system. (GINA FRAGOSO APRN) Departure Departure Impression: Primary Impression: Right shoulder tendonitis Disposition: 03 ASSISTED FACILITY Condition: IMPROVED Referrals: MICHAEL MONTENEGRO (PCP) Follow up with your doctor next week for orthopedic referral. Patient Instructions: Shoulder Pain Additional Instructions: Thank you for visiting our Emergency Department. We appreciate you trusting us with your care. If any additional problems come up don't hesitate to return to visit us. Please follow up with your primary care provider so they can plan additional care if needed and know about the problem that you had. If symptoms worsen come back to the Emergency Department. Any concerning symptoms that start such as chest pain, shortness of air, weakness or numbness on one side of the body, running high fevers or any other concerning symptoms return to the ER. Scripts Hydrocodone/Acetaminophen (Hydrocodone-Acetamin 5-325 mg) 1 Each Tablet 1 EACH PO Q6HRS PRN for PAIN, #15 TAB Prov: EMILY PETERSON DO 07/31/21 GINA FRAGOSO APRN Jul 30, 2021 20:23 EMILY PETERSON DO Jul 31, 2021 01:54
[2021-07-30 21:11] LABS: BASO # 0.1 x10^3/uL (0.0-0.2); BASO % 1 % (0-3); EOS # 0.1 x10^3/uL (0.0-0.7); EOS % 1 % (0-3); HEMATOCRIT 37.5 % (36.0-47.0); HEMOGLOBIN 11.8 g/dL (12.0-15.5); LYMPH # 4.5 x10^3/uL (1.0-4.8); LYMPH % 36 % (24-48); MEAN CORPUSCULAR HEMOGLOBIN 29 pg (25-35); MEAN CORPUSCULAR HGB CONC 31 g/dL (31-37); MEAN CORPUSCULAR VOLUME 92 fL (79-100); MONO # 1.5 x10^3/uL (0.0-1.1); MONO % 12 % (0-9); NEUT # 6.2 x10^3/uL (1.8-7.7); NEUT % 50 % (31-73); PLATELET COUNT 217 x10^3/uL (140-400); RED BLOOD COUNT 4.09 x10^6/uL (3.50-5.40); RED CELL DISTRIBUTION WIDTH 14.4 % (11.5-14.5); WHITE BLOOD COUNT 12.4 x10^3/uL (4.0-11.0)
[2021-07-30 21:18] LABS: CREATININE 0.6 mg/dL (0.6-1.0); GFR 120.7; POTASSIUM 3.8 mmol/L (3.5-5.1)
[2021-07-30 21:26] LABS: ALBUMIN 2.8 g/dL (3.4-5.0); ALBUMIN/GLOBULIN RATIO 0.6 (1.0-1.7); TOTAL BILIRUBIN 0.4 mg/dL (0.2-1.0); TOTAL PROTEIN 7.4 g/dL (6.4-8.2)
--- NOTE | 2021-07-30 21:32 | RAD ---
Exam: Right RIBS with PA chest INDICATION: Pain with movement after fall TECHNIQUE: Frontal view of the chest with frontal and oblique views the right ribs Comparisons: 05/24/2021 FINDINGS: Heart is mildly enlarged pulmonary vessels are within normal limits. The lung and pleural spaces are clear. No displaced rib fracture identified. IMPRESSION: 1. No acute cardiopulmonary process. 2. No displaced rib fracture. Electronically signed by: Nathaniel Farnsworth MD (07/30/2021 9:30 PM) [facility]
--- NOTE | 2021-07-30 21:34 | RAD ---
Exam: Right shoulder 3 views INDICATION: Pain, no known injury TECHNIQUE: Frontal view of the right shoulder with internal and external rotation and transscapular Y views Comparisons: None FINDINGS: Diffuse osteopenia. There is degenerative change at the glenohumeral joint. Calcific density at the i nsertion of the supraspinatus. No acute or healed fractures. IMPRESSION: 1. No acute osseous abnormality. 2. Findings suspicious for calcific tendinitis of the supraspinatus tendon. 3. Degenerative changes described above. Electronically signed by: Nathaniel Farnsworth MD (07/30/2021 9:32 PM) [facility]
--- NOTE | 2021-07-30 22:00 | RAD ---
Exam: CT of lumbar spine without contrast INDICATION: Pain, no known injury TECHNIQUE: Sequential axial images through the lumbar spine obtained without IV contrast. Sagittal an d coronal reformatted images were reconstructed from the axial data and reviewed. Exposure: One or more of the following in the visualized dose reduction techniques were utilized for this examination: 1. Automated exposure control 2. Adjustment of the MA and/or KV according to patient size 3. Use of iterative of reconstructive technique Comparisons: None FINDINGS: Vertebral body heights and alignment are well-maintained. Fracture through the lumbar spine is is not identified. Multilevel spondylotic changes lumbar spine with mild broad-based is bulge at L4-L5 and L5-S1. Bilate ral facet arthropathy lower lumbar spine with moderate spinal canal stenosis. Sagittal 4 L5. Visualized paraspinal soft tissues are unremarkable. IMPRESSION: Negative CT lumbar spine for acute traumatic injury. Spondylotic changes as described above. Electronically signed by: Nathaniel Farnsworth MD (07/30/2021 9:57 PM) [facility]
--- NOTE | 2021-07-30 22:15 | RAD ---
INDICATION: Reason: PAIN, NO KNOWN INJURY / Spl. Instructions: / History: COMPARISON: May 24, 2021 IMPRESSION: 3 views of the pelvis and right hip there are some degenerative changes the lumbar spine as well as t he bilateral hips with the hips degenerative changes appearing moderate to severe bilaterally. No anya dence of dislocation or a definite acute fracture line at the right hip. There is some coarse periost eal reaction at the proximal right femur versus callus formation. Electronically signed by: Thang Cobb MD (07/30/2021 10:12 PM) [id number]
[2021-07-30] MEDS ORDERED: KETOROLAC 30 MG/ML VIAL. IVP ONE (23:30)
[2021-07-30] MEDS ORDERED: methylPREDNISolone SOD SUCC PF 125 MG/2 ML VIAL. IV ONE (23:30)
[2021-07-31 01:01] LABS: BACTERIA,URINE FEW /HPF (0-FEW); WBC,URINE 0 /HPF (0-4)
[2021-07-31 02:00] VITALS: BP 177/84
[2021-07-31] MEDS ORDERED: HYDR-2759 PO (02:03)
--- NOTE | 2021-07-31 06:09 | EKG ---
[facility] [address] [place] [id number] Test Date: 2021-07-30 Test Time: 20:40:55 Pat Name: KY ROJAS Department: Room: Gender: F Manager Managing: : 1955 Requested By: GINA FRAGOSO Order Number: [id number] Reading MD: Jimmy Barron Measurements Intervals Burton Rate: 87 P: 39 NM: 146 QRS: 9 QRSD: 74 T: -23 QT: 364 QTc: 444 Interpretive Statements SINUS RHYTHM NORMAL ECG RI6.02 Compared to ECG 05/24/2021 03:04:41 No significant changes Electronically Signed On 08-03-2021 18:32:57 CDT by Jimmy Barron
== END 2021-07-31 02:54 ==
LOC: ER 19:50
DX: M75.91 Shoulder lesion, unspecified, right shoulder (principal); R07.81 Pleurodynia; M25.552 Pain in left hip; I11.0 Hypertensive heart disease with heart failure; I50.9 Heart failure, unspecified; K21.9 Gastro-esophageal reflux disease without esophagitis; Z88.8 Allergy status to other drugs, medicaments and biological substances
CPT/HCPCS: 36415; 71101; 72131; 73030; 73502; 80053; 81001; 85025; 93005; 96374; 96375; 99285; J1885; J2930; J3010